=== PATIENT | male | born 1945 | race Two or more races ===

== ENCOUNTER 2019-05-31 10:47 | Outpatient (CLI) | payer MEDICARE, SELFPAY ==
--- NOTE | 2019-05-31 10:51 | MR_ITS ---
WS: [id number] MRI RIGHT KNEE HISTORY: PRIMARY OSTEOARTHRITIS RIGHT KNEE COMPARISON: 09/05/2018 Anterior cruciate ligament: Intact. Posterior cruciate ligament: Abnormal appearance of the PCL. There is thickening involving the proxim al PCL with increased signal. Mid body of the PCL is narrowed with some increased signal on the keesha n density sequence. No significant amount of edema to suggest an acute injury or tear. Suspect partia l chronic tear. Medial collateral ligament: Intact. Posterior lateral corner structures: Intact. Medial menisci: Fluid surrounding the free edge of the posterior horn. No full-thickness tear. Lateral meniscus: Intact. Normal signal, size and shape. Extensor mechanism: Distal quadriceps tendon and patellar tendons are intact. Fluid and soft tissue: Small suprapatellar joint effusion. No Padilla's cyst. Osseous and articular structures: Patellofemoral compartment: Normal. Medial compartment: Near full-thickness cartilage defect in the medial femoral condyle weightbearing surface. Defect is distended with fluid. There is an underlying 4 mm cyst. Otherwise mild narrowing o f the medial compartment. Lateral compartment: Negative. MR/MR knee RT wo con* [id number] IMPRESSION: 1. Osteochondral defect medial femoral condyle. 2. Abnormal PCL. Thickening of the proximal PCL with thinning of the mid body. Favor mucinous degenerative changes in the proximal ligament. Chronic partial tear mid, vertical portion of the PCL.
== END 2019-05-31 10:48 | disposition home or self-care (01) ==
LOC: RADSHAW 10:47
PROVIDERS: Family Provider Internal Medicine; PCP Internal Medicine; Visit Provider Specialist
DX: M17.11 Unilateral primary osteoarthritis, right knee (principal); M21.851 Other specified acquired deformities of right thigh
CPT/HCPCS: 73721

== ENCOUNTER → 2019-06-19 10:44 | Outpatient (BNVA) | payer MEDICARE, SELFPAY | PROVIDERS: Family Provider Internal Medicine; PCP Internal Medicine; Visit Provider Internal Medicine Rheumatology | DX: M05.79 Rheumatoid arthritis with rheumatoid factor of multiple sites without organ or systems involvement (principal); M35.00 Sjogren syndrome, unspecified; Z79.899 Other long term (current) drug therapy; D50.9 Iron deficiency anemia, unspecified; M19.012 Primary osteoarthritis, left shoulder | CPT/HCPCS: 99213 ==

== ENCOUNTER → 2019-10-25 10:54 | Outpatient (BNVA) | payer MEDICARE, SELFPAY | PROVIDERS: Family Provider Internal Medicine; PCP Internal Medicine; Visit Provider Internal Medicine | DX: Z79.899 Other long term (current) drug therapy (principal); Z11.59 Encounter for screening for other viral diseases; Z11.1 Encounter for screening for respiratory tuberculosis; Z72.89 Other problems related to lifestyle | CPT/HCPCS: 36415; 80076; 82565; 85025; 85651; 86140; 86480; 86704; 86803; 87340 ==

== ENCOUNTER → 2019-11-02 09:51 | Outpatient (BNVA) | payer MEDICARE, SELFPAY | PROVIDERS: Family Provider Internal Medicine; PCP Internal Medicine; Visit Provider Internal Medicine | DX: M05.79 Rheumatoid arthritis with rheumatoid factor of multiple sites without organ or systems involvement (principal); M35.00 Sjogren syndrome, unspecified; M19.90 Unspecified osteoarthritis, unspecified site; Z79.899 Other long term (current) drug therapy | CPT/HCPCS: 99213 ==

== ENCOUNTER → 2020-01-17 09:34 | Outpatient (BNVA) | payer MEDICARE, SELFPAY | PROVIDERS: Family Provider Internal Medicine; PCP Internal Medicine; Visit Provider Internal Medicine | DX: M05.79 Rheumatoid arthritis with rheumatoid factor of multiple sites without organ or systems involvement (principal); M19.90 Unspecified osteoarthritis, unspecified site; Z79.899 Other long term (current) drug therapy | CPT/HCPCS: 36415; 80053; 85025; 85651; 99213 ==

== ENCOUNTER → 2020-04-16 12:57 | Outpatient (BNVA) | payer MEDICARE, SELFPAY | PROVIDERS: Family Provider Internal Medicine; PCP Internal Medicine; Visit Provider Internal Medicine | DX: M05.79 Rheumatoid arthritis with rheumatoid factor of multiple sites without organ or systems involvement (principal); M19.90 Unspecified osteoarthritis, unspecified site; Z79.899 Other long term (current) drug therapy; Z87.891 Personal history of nicotine dependence | CPT/HCPCS: 36415; 80053; 85025; 85651; 86431; 99213 ==

== ENCOUNTER 2020-06-16 20:15 | Emergency (ER) | payer MEDICARE, SELFPAY ==
--- NOTE | 2020-06-16 | CTR_ITS ---
[facility] Final Radiology Report Call: [phone] Name: RHONDA LOMBARDI Age: 74Years M Date: 06/16/2020 SSN: -- : [id number] Study: CT NECK SOFT TISSUE WO Requesting Physician: Kwabena Ashton Images: [id number] Provided Clinical History: distal esophagus foreign body Procedure Accession CTDI Vol (mGy) DLP (mGy-cm) 694.22 CT NECK SOFT TISSUE WO [id number] PROCEDURE INFORMATION: Exam: CT Neck Without Contrast Exam date and time: 06/16/2020 8:40 PM Age: 74 years old Clinical indication: Other: Possible fb; Patient HX: Carrot stuck in throat; Additional info: Distal esophagus foreign body TECHNIQUE: Imaging protocol: Computed tomography images of the neck without contrast. Radiation optimization: All CT scans at this facility use at least one of these dose optimization techniques: automated exposure control; mA and/or kV adjustment per patient size (includes targeted exams where dose is matched to clinical indication); or iterative reconstruction. COMPARISON: No relevant prior studies available. RADIATION DOSE METRICS: Total DLP (mGy-cm): 694.22 FINDINGS: Nasopharynx: Unremarkable. Oropharynx: Unremarkable. No significant tonsillar enlargement. Hypopharynx: Unremarkable. Larynx: Unremarkable. Normal epiglottis. Retropharyngeal space: Unremarkable. Submandibular/Parotid glands: Normal. Glands are normal in size. Thyroid: Normal. No enlarged or calcified nodules. Lymph nodes: Unremarkable. No lymphadenopathy. Trachea: No obvious radiopaque foreign body in the pharynx or trachea. Lungs: Partially visualized 3.1 x 1.6 x 2.1 cm right extrapleural chest wall lesion suggesting fibroma versus other benign or malignant lesion. Esophagus: No obvious esophageal lesion down to the level of the subcarinal area. Bones/joints: Unremarkable. No acute fracture. Vasculature: Calcification of the thoracic aorta and/or great vessels consistent with atherosclerotic vessel disease. Moderate calcified coronary artery disease. Soft tissues: Unremarkable. No significant soft tissue swelling. Other findings: Stable total left shoulder replacement. IMPRESSION: 1. Partially visualized 3.1 x 1.6 x 2.1 cm right extrapleural chest wall lesion suggesting fibroma versus other benign or malignant lesion. 2. No obvious esophageal lesion down to the level of the subcarinal area. 3. No obvious radiopaque foreign body in the pharynx or trachea. Thank you for allowing us to participate in the care of your patient. Dictated and Authenticated by: Milad Law MD 06/16/2020 9:20 PM Central Time ([place] & [place]) CATHERINE
[2020-06-16 20:19] VITALS: BP 119/72; PULSE 82; RESP 19; TEMP 36.6; O2SAT 96; BMI 26.6
[2020-06-16 20:23] VITALS: PULSE 88; RESP 18; O2SAT 95
--- NOTE | 2020-06-16 20:57 | ED_ITS ---
HPI - URI/Sore Throat General: Chief Complaint: Airway/Esophagus Foreign Body Stated Complaint: FOOD IN THROAT Time Seen by Provider: 06/16/20 20:21 History of Present Illness: HPI Narrative: The patient is a 74-year-old male who comes to the ER tonight complaining he feels a foreign body in his throat. He says he ate a TV dinner which was not all the way cooked and there was a very hard curate which she feels is lodged in his upper throat. He says he can swallow but it is hard and painful. Denies shortness of breath, nausea, vomiting, diarrhea. Associated symptoms: Deny abdominal pain, chest pain, diarrhea, ear or mastoid pain, headache(s) or nasal congestion Review of Systems General: Reports: 10 or more systems reviewed and unremarkable except in HPI and below Const: Denies: fatigue Eyes: Denies: change in vision, blurry vision or eye redness ENMT: Denies: throat pain, swelling of lips/tongue, ear or mastoid pain or na leonor congestion Card: Denies: chest pain, palpitations, irregular heart rhythm, edema, dyspnea on exertion or orthopnea Resp: Denies: dyspnea, productive cough or non-productive cough GI: Denies: abdominal pain, diarrhea or GI cramping : Denies: flank pain, urinary frequency or urinary urgency Musc: Denies: neck pain, back pain, extremity pain, joint pain, joint redness, limited range of motion or muscle weakness Skin/Breast: Denies: rash, pruritus, erythema, skin pain or skin tenderness Neuro: Denies: headache(s), numbness in extremities, weakness in extremities, sensory changes, difficulty walking, dizziness, confusion or Slurred speech present Psych: Denies: anxiety or depression Endo: Denies: polyuria All/Imm: Denies: urticaria, throat swelling or tongue swelling PFSH ED PFSH: Medical History (Updated 06/16/20 @ 23:44 by Kwabena Ashton MD) History of Hodgkin's lymphoma History of revision of total replacement of right hip joint Immunosuppression Iron deficiency anemia Osteoarthritis Primary Sjogren's syndrome Right knee meniscal tear Seropositive rheumatoid arthritis of multiple joints Surgical History History of arthroplasty of left shoulder History of arthroplasty of right hip Social History Smoking and tobacco status: former smoker Alcohol intake: current Alcohol intake frequency: 0-2 Drinks per Day Alcohol type: beer Lives independently: Yes Marital status: / Physical Exam Const: COMMON NORMALS: no acute distress, average body habitus, patient oriented x3, no limitations, healthy appearing, alert and well nourished GENERAL APPEARANCE: cooperative, comfortable, well kempt and well developed ORIENTATION/CONSCIOUSNESS: Yes awake, Yes oriented to person, Yes oriented to place and Yes oriented to time HENMT: COMMON NORMALS: normocephalic, external ears normal and Normal external nose present HEAD & SCALP: normal to inspection and normocephalic NOSE: Normal external nose present EXTERNAL EAR: Yes external ears normal MOUTH: Normal oral and palatal mucosa present THROAT: posterior oropharynx normal Eye: COMMON NORMALS: Equal, round and reactive pupils present and EOMs intact bilaterally GENERAL EYE: appearance normal, both eyes and all related structures PUPIL: Yes Equal, round and reactive pupils present Neck/C-Spine: COMMON NORMALS: full ROM, no lymphadenopathy, no meningeal signs and no JVD GENERAL: Yes normal visual inspection Lymph: LYMPHATIC: no lymphadenopathy noted Chest: COMMONS NORMALS: normal inspection of the chest and normal palpation of entire chest wall Resp: COMMON NORMALS: normal respiratory effort, No retractions, No use of accessory muscles, clear to auscultation bilaterally and percussion normal EFFORT & INSPECTION: Yes able to speak in complete sentences AUSCULTATION: clear to auscultation bilaterally PERCUSSION: percussion normal Cardio: COMMON NORMALS: no JVD, regular rate, regular rhythm, S1 normal heart sound present, S2 normal heart sound present and Peripheral pulses 2+ throughout RATE: regular rate RHYTHM: regular rhythm HEART SOUNDS: S1 normal heart sound present and S2 normal heart sound present PERIPHERAL PULSES: Peripheral pulses 2+ throughout GI: COMMON NORMALS: Normal to inspection, nondistended, normoactive bowel sounds present, Soft to palpation, non-tender and no masses INSPECTION: Yes normal to inspection PALPATION: Yes Soft to palpation : COMMON NORMALS: Yes no CVA tenderness BLADDER/KIDNEY EXAM: Yes no CVA tenderness Back/Pelvis: COMMON NORMALS: no CVA tenderness, thoracic and lumbar spine normal to inspection, no thoracic nor lumbar tenderness and thoraco-lumbar ROM normal Extremity: COMMON NORMALS: normal to inspection, full ROM, capillary refill normal, no joint enlargement and no pedal edema GENERAL: Yes normal exam except as noted Neuro: COMMON NORMALS: patient oriented x3, CN's II-XII intact bilaterally, moves all extremities, no focal motor deficits, no sensory deficits noted and gait normal SENSORIUM/ORIENTATION: Yes alert, Yes oriented to person, Yes oriented to place and Yes oriented to time MENINGEAL SIGNS: Yes no meningeal signs Psych: COMMON NORMALS: mental status grossly normal, Normal thought process present, cooperative, normal affect and speech normal APPEARANCE: Yes well kempt ATTITUDE: Yes calm SPEECH: Yes normal speech THOUGHT PROCESS: Normal thought process present Skin: COMMON NORMALS: no rashes or lesions noted GENERAL SKIN EXAM: no rashes or lesions noted Course Vital Signs: Vital signs: Vital Signs Temperature 97.8 F 06/16/20 20:19 Pulse Rate 88 06/16/20 20:23 Respiratory Rate 18 06/16/20 20:23 Blood Pressure 119/72 06/16/20 20:19 Pulse Oximetry 95 06/16/20 20:23 MDM - URI/Sore Throat MDM Narrative: Medical decision making narrative: Symptoms resolved after GI cocktail. Likely a small abrasion from food. He is drinking water with no pain now. CT does have an incidental finding of a partially visualized 3.1 x 1.6 x 2.1 right extrapleural chest wall lesion suggesting fibroma versus other benign or malignant lesion. I discussed these findings with the patient and recommended he follow-up with his primary care physician in a few days to get further imaging and possibly a biopsy of this lesion. He understands there is a possibility it could be cancer and that earlier diagnosis leads to better prognosis and lower chance of and will follow up. Lab Data: Labs: Lab Results 06/16/20 06/16/20 Range/Units 22:31 22:31 WBC 8.2 (4.0-10.0) 10^3/ uL RBC 3.79 L (4.1-5.3) 10^6/u L Hgb 11.5 L (11.7-16.6) g/dL Hct 34.4 L (42.0-52.0) % MCV 90.8 (80-94) fL MCH 30.3 (28.0-34.0) pg MCHC 33.4 (30.0-36.0) g/dL RDW 12.3 (12.1-15.1) % Plt Count 177 (130-400) 10^3/c mm MPV 10.6 H (7.4-10.4) fL Neut % (Auto) 77.6 % Lymph % (Auto) 11.4 % [place] % (Auto) 7.3 % Eos % (Auto) 2.8 % Baso % (Auto) 0.7 % Neut # (Auto) 6.33 (1.8-7.7) 10^3/u L Lymph # (Auto) 0.9 (0.8-4.8) 10^3/u L [place] # (Auto) 0.6 (0.2-0.9) 10^3/u L Eos # (Auto) 0.2 (0.0-0.8) 10^3/u L Baso # (Auto) 0.1 (0.0-0.1) 10^3/u L Nucleated RBC % (a uto) 0 % Nucleated RBCs # 0.0 /100WBC Sodium 139 (136-145) mmol/L Potassium 4.1 (3.5-5.1) mmol/L Chloride 105 (98-107) mmol/L Carbon Dioxide 27 (22-29) mmol/L Anion Gap 11.1 (5-19) BUN 10 (8-23) mg/dL Creatinine 0.7 (0.7-1.2) mg/dL GFR Calculation Not Reportable Glucose 116 H (65-115) mg/dL Calculated Osmolal ity 288 (285-295) mOsm/k g Calcium 10.0 (8.5-10.5) mg/dL Total Bilirubin 0.4 (0.15-1.2) mg/dL AST 29 (0-40) U/L ALT 23 (0-41) U/L Alkaline Phosphata se 78 (40-130) IU/L Total Protein 7.2 (6.6-8.7) g/dL Albumin 4.1 (3.5-5.2) g/dL Globulin 3.1 (1.3-4.6) g/dL Lipase 71 H (13-60) U/L Discharge Plan Discharge Patient Disposition: Home Clinical Impression: Pain in throat, Chest wall mass Condition: Stable Prescriptions: No Action ferrous sulfate 325 mg (65 mg iron) tablet 325 mg PO BID@799,1999 RF: 0 oxycodone-acetaminophen [Percocet] 7.5-325 mg tablet 1 tab PO Q6H PRN (Reason: Pain) RF: 0 Ca-D3-mag pu-gwzi-bux-kody-bor [Calcium 600-D3 Plus (mag-zinc)] 600 mg calcium- 800 unit-50 mg tablet 1 tab PO DAILY@0800 RF: 0 ax-3-rpd-epa-fish oil-vit D3 300-1,000-1,000 mg-mg-unit capsule 1 cap PO DAILY@0800 RF: 0 glucosamine HCl 750 mg tablet 750 mg PO DAILY@0800 RF: 0 magnesium 200 mg tablet 200 mg PO DAILY@0800 RF: 0 saw palmetto 500 mg capsule 500 mg PO BID@799,1999 RF: 0 selenium 100 mcg tablet 100 mcg PO DAILY@0800 RF: 0 sulfasalazine 500 mg tablet 0.5 g PO BID@799,1999 RF: 0 folic acid 1 mg tablet 1 mg PO DAILY@08 RF: 0 hydroxychloroquine 200 mg tablet 200 mg PO BID@799,1999 RF: 0 Multivitamin 50 Plus Tablet 1 tab PO DAILY@0800 RF: 0 Discharge Orders: Discharge ED (Routine); Ordered 06/16/20 Ordered By: Kwabena Ashton Referrals: Barrie Bhatt DO [Primary Care Provider] - Discharge Diet: Advance as tolerated Discharge Activity: Resume usual activity Patient Instructions: Lump/Mass Activity Restrictions/Additional Instructions: It is likely the piece of food scratched your throat improved with the GI cocktail we have given. Continue to drink lots of fluids and chew your food well. Incidentally the CAT scan saw a mass in your chest wall 3.1 cm in the largest diameter. It is possible this is a fibroma or there is a possibility this could be a cancer. Please follow-up with your primary care physician in a few days to discuss further and get more imaging and possibly a biopsy of this lesion. In the event it is a cancer early follow-up in diagnosis leads to a better prognosis so please make sure that you follow-up quickly. Return to the ER with worsening symptoms. Coding Level of Care Code ED Learn To Swim Instructor for Chg Fwd Exam Comprehensive
[2020-06-16] MEDS: lidocaine 2% viscous 15 ML, aluminum-mag hydrox-simethicon 30 ML, sucralfate oral liq 1 GM PO (22:25)
[2020-06-16 22:46] LABS: Basophils # 0.1 10^3/uL (0.0-0.1); Basophils % 0.7 %; Eosinophils # 0.2 10^3/uL (0.0-0.8); Eosinophils % 2.8 %; Hematocrit 34.4 % (42.0-52.0); Hemoglobin 11.5 g/dL (11.7-16.6); Lymphocytes # 0.9 10^3/uL (0.8-4.8); Lymphocytes % 11.4 %; Mean Corpuscular HGB Conc 33.4 g/dL (30.0-36.0); Mean Corpuscular Hemoglobin 30.3 pg (28.0-34.0); Mean Corpuscular Volume 90.8 fL (80-94); Mean Platelet Volume 10.6 fL (7.4-10.4); Monocytes # 0.6 10^3/uL (0.2-0.9); Monocytes % 7.3 %; Neutrophils # 6.33 10^3/uL (1.8-7.7); Neutrophils % 77.6 %; Nucleated Red Blood Cells % 0 %; Platelet Count 177 10^3/cmm (130-400); Red Blood Count 3.79 10^6/uL (4.1-5.3); Red Cell Distribution Width 12.3 % (12.1-15.1); White Blood Count 8.2 10^3/uL (4.0-10.0)
[2020-06-16 22:55] LABS: Alanine Aminotransferase 23 U/L (0-41); Albumin Level 4.1 g/dL (3.5-5.2); Alkaline Phosphatase 78 IU/L (40-130); Anion Gap 11.1 (5-19); Aspartate Amino Transferase 29 U/L (0-40); Blood Urea Nitrogen 10 mg/dL (8-23); Carbon Dioxide 27 mmol/L (22-29); Chloride 105 mmol/L (98-107); Creatinine Clr Calc Pharmacy 75.7969; Globulin 3.1 g/dL (1.3-4.6); Glucose 116 mg/dL (65-115); Lipase 71 U/L (13-60); Osmolality Calculated 288 mOsm/kg (285-295); Potassium 4.1 mmol/L (3.5-5.1); Sodium 139 mmol/L (136-145); Total Bilirubin 0.4 mg/dL (0.15-1.2); Total Protein 7.2 g/dL (6.6-8.7)
[2020-06-17 00:42] VITALS: BP 115/78; PULSE 77; RESP 18; TEMP 36.6; O2SAT 96
== END 2020-06-17 00:42 | disposition home or self-care (01) ==
PROVIDERS: Emergency Provider Family Medicine; PCP Internal Medicine
DX: R07.0 Pain in throat (principal); R22.2 Localized swelling, mass and lump, trunk; Z85.71 Personal history of Hodgkin lymphoma; Z87.891 Personal history of nicotine dependence
CPT/HCPCS: 12345; 36415; 70490; 80053; 83690; 85025; 99281; 99283

== ENCOUNTER → 2020-07-15 15:08 | Outpatient (BNVA) | payer MEDICARE, SELFPAY | PROVIDERS: PCP Internal Medicine; Visit Provider Internal Medicine | DX: M05.79 Rheumatoid arthritis with rheumatoid factor of multiple sites without organ or systems involvement (principal); M19.90 Unspecified osteoarthritis, unspecified site; M35.00 Sjogren syndrome, unspecified; Z79.899 Other long term (current) drug therapy; Z87.891 Personal history of nicotine dependence | CPT/HCPCS: 99213 ==

== ENCOUNTER 2020-07-17 10:50 | Outpatient (CLI) | payer MEDICARE, SELFPAY ==
--- NOTE | 2020-07-17 11:05 | CT_ITS ---
WS: [id number] CT CHEST TECHNIQUE: Noncontrast CT of the chest with coronal and sagittal reformatted images. CLINICAL INFORMATION: LUNG MASS COMPARISON: 1 DLP: 829.[address] scans at [facility] use at least one of these dose optimization techniques: automat ed exposure control; mA and/or kV adjustment per patient size (includes targeted exams where dose is matched to clinical indication); or iterative reconstruction. FINDINGS: Again seen is the lateral right upper lobe pleural-based mass approximately 4.1 x 1.1 x 4.1 CM. This is unchanged since the recent CT neck. This underlies the right third rib. No underlying osseous dest ruction or osteolysis. Advanced chronic emphysematous changes. Scattered bilateral groundglass infiltrates. Findings can be seen with COVID19 pneumonitis. No focal pneumonia or pleural fluid. Chronic pleural thickening in the lung bases. Normal caliber thoracic aorta with calcification. Coronary calcification. A few slight prominent medi astinal and paratracheal lymph nodes not pathologically enlarged. No axillary lymphadenopathy. Adrena l glands are normal. Fatty atrophy of the pancreas. Mild spondylitic changes thoracic spine. Mild tho racic kyphosis. Left TSA. CT/CT chest wo con [id number] IMPRESSION: 1. Right upper lobe pleural based lesion is unchanged since the recent examina tion. This underlies the third anterior rib with no evidence of underlying osse ous destruction. 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 2. Additional considerations such as pleural-based metastasis and lymphoma are much less likely without prior history of malignancy. Note CT-guided Percutane ous biopsy could be attempted but would be challenging due to location underlyi ng rib. 3. Scattered hazy ground glass infiltrates in both lungs likely infectious or inflammatory and can be seen with COVID19 pneumonitis. No focal consolidation o r pleural fluid. 4. Vascular calcification including coronary.
== END 2020-07-17 10:51 | disposition home or self-care (01) ==
LOC: RADWPI 10:58
PROVIDERS: PCP Internal Medicine; Visit Provider Internal Medicine
DX: R91.8 Other nonspecific abnormal finding of lung field (principal); I25.10 Atherosclerotic heart disease of native coronary artery without angina pectoris; J98.4 Other disorders of lung
CPT/HCPCS: 71250

== ENCOUNTER → 2020-08-15 10:27 | Outpatient (BNVA) | payer MEDICARE, SELFPAY | PROVIDERS: PCP Internal Medicine; Visit Provider Internal Medicine Pulmonary Disease | DX: Z20.822 Contact with and (suspected) exposure to COVID-19 (principal) | CPT/HCPCS: 87635 ==

== ENCOUNTER 2020-08-22 05:42 | Day surgery (SDC) | payer MEDICARE, SELFPAY ==
[2020-08-20 11:01] VITALS: BMI 24.2
[2020-08-22] VITALS (7 sets, daily range): BP systolic 91–122; BP diastolic 61–81; PULSE 68–84; RESP 17–18; TEMP 36.6–37.2; O2SAT 92–98
[2020-08-22] MEDS: sodium chloride 0.9% 1,000 ML 30 ML IV ×2 (06:19→07:46)
--- NOTE | 2020-08-22 06:33 | ANES.PREANE2 ---
Pre-Anesthetic Assessment Pre-Anesthetic Assessment: Height/Weight: Height 1.68 m Weight 68.039 kg Temp Pulse Resp BP Pulse Ox 99.0 F 84 18 106/63 94 08/22/20 06:01 08/22/20 06:01 08/22/20 06:01 08/22/20 06:01 08/22/20 06:01 Preop Diagnosis: Lung mass Proposed Procedure: Operation Date: 08/22/20 07:10 Proposed Procedures p Ebus(Not Applicable) - Easton Germain MD Familial anesthetic complications: none Was Beta Julia taken within 24 hours: N/A Was Clonidine taken within 24 hours: N/A Last intake: Intake Last Liquid Date 08/21/20 Last Liquid Time 23:45 Last Solid Date 08/21/20 Last Solid Time 23:45 Social: Social History: No alcohol and No tobacco Comment: former smoker Exam: Pre-Anes Outpt Exam: alert, oriented x 3, clear to auscultation bilaterally and regular rate & rhythm Airway: Cervical ROM: WNL MP: 2 Dentition: Other (no teeth) Pulmonary: Comments: lung mass Musc/skel: Musc/skel: RA Anesthetic Plan: ASA status: 3 Anesthesia: General Risk of > 500 ml blood loss (7ml/kg in children): No Meds/Allergies Current Medications: Current Medications Generic Name Dose Route Start Last Admin Trade Name Freq PRN Reason Stop Dose Admin Sodium Chloride 1,000 mls @ 30 ml s/hr 08/22/20 06:00 08/22/20 06:19 Sodium Chloride 0.9% IV 08/23/20 05:59 30 mls/hr .Q24H COLT Administration PFSH Anesthesia PFSH: Medical History (Updated 08/04/20 @ 17:35 by Easton Germain MD) History of Hodgkin's lymphoma Iron deficiency anemia Osteoarthritis Primary Sjogren's syndrome Right knee meniscal tear Seropositive rheumatoid arthritis of multiple joints Thoracic outlet syndrome Surgical History History of arthroplasty of left shoulder History of arthroplasty of right hip History of revision of total replacement of right hip joint Status post colonoscopy Status post surgery Bilateral chest surgery for thoracic outlet syndrome Social History Smoking and tobacco status: former smoker Quit status (tobacco): has quit using tobacco Year quit tobacco: 2010 [id number] Second hand smoke exposure: No Smoking risk assessment/counseling performed?: Yes Alcohol intake: current Alcohol intake frequency: 0-2 Drinks per Day Alcohol type: beer Caregiver/support person: No Lives independently: Yes Household members: none Housing: House Marital status: / service: No Current occupational status: retired Pets and animals: Yes History of recent travel: No Current gender identity: Male Data Anesthesia Cardiac Studies: No Data to Display
--- NOTE | 2020-08-22 06:58 | W.PM.OPSFHP ---
Same Day Surgery H&P Indication for Procedure/HPI DATE OF PROCEDURE: August 22, 2020 CHIEF COMPLAINT/INDICATIONFOR SURGICAL PROCEDURE: This is a 74-year-old gentleman with a past medical history of Hodgkin's lymphoma. The patient is coming in for bronchoscopic evaluation for mediastinal hilar lymphadenopathy in addition to right upper lobe pleural-based lesion that are PET positive. PREOP DIAGNOSIS: Lung mass PLANNED PROCEDRUE: Bronchoscopy inspection of the airway, possible endobronchial biopsies, bronchoalveolar lavage, endobronchial sound guided transbronchial needle aspiration of lymph nodes, ultrasound-guided transthoracic needle biopsy of the lung mass. Operation Date: 08/22/20 07:10 Proposed Procedures p Ebus(Not Applicable) - Easton Germain MD Medications/Allergies* Home Medications Medication Instructions Recorded Confirmed Type Ca 600 mg-D3 20 mcg-mag oxide 50 1 tab PO DAILY@0800 tab 06/19/19 08/22/20 History dw-Qf-xdgotj-manganese-boron tablet ferrous sulfate 325 mg (65 mg 325 mg PO BID@0800,199906/19/19 08/22/20 History iron) tablet glucosamine HCl 750 mg tablet 750 mg PO DAILY@0800 tab 06/19/19 08/22/20 History magnesium 200 mg tablet 400 mg PO DAILY@0800 06/19/19 08/22/20 History xf-8-mij-epa-fish oil-vit D3 300 1 cap PO DAILY@0800 cap 06/19/19 08/22/20 History mg-1,000 mg-1,000 unit capsule oxycodone-acetaminophen 7.5 mg-325 1 tab PO Q6H PRN 06/19/19 08/22/20 History mg tablet saw palmetto 500 mg capsule 500 mg PO BID@0800,199906/19/19 08/22/20 History selenium 100 mcg tablet 100 mcg PO DAILY@00 06/19/19 08/22/20 History folic acid 1 mg PO DAILY@00 06/16/20 08/22/20 History rtylamhlvnkm-pfanlhxd-ullgyd 1 tab PO DAILY@00 06/16/20 08/22/20 History [Multivitamin 50 Plus] Allergies/Adverse Reactions Allergy/AdvReac Type Severity Reaction Status Date / Time No Known Allergies Allergy Verified 08/04/20 14:34 Current Medications: Generic Name Dose Route Start Last Admin Trade Name Freq PRN Reason Stop Dose Admin Sodium Chloride 1,000 mls @ 30 mls/hr 08/22/20 06:00 08/22/20 06:19 Sodium Chloride 0.9% IV 08/23/20 05:59 30 mls/hr .Q24H COLT Administration Pertinent History/Comorbid Conditions* Medical History (Updated 08/04/20 @ 17:35 by Easton Germain MD) History of Hodgkin's lymphoma Iron deficiency anemia Osteoarthritis Primary Sjogren's syndrome Right knee meniscal tear Seropositive rheumatoid arthritis of multiple joints Thoracic outlet syndrome Surgical History (Updated 08/04/20 @ 11:18 by Neel Art MD) History of arthroplasty of left shoulder History of arthroplasty of right hip History of revision of total replacement of right hip joint Status post colonoscopy Status post surgery Bilateral chest surgery for thoracic outlet syndrome Social History Smoking and tobacco status: former smoker Quit status (tobacco): has quit using tobacco Year quit tobacco: 2010 [id number] Second hand smoke exposure: No Smoking risk assessment/counseling performed?: Yes Alcohol intake: current Alcohol intake frequency: 0-2 Drinks per Day Alcohol type: beer Caregiver/support person: No Lives independently: Yes Household members: none Housing: House Marital status: / service: No Current occupational status: retired Pets and animals: Yes History of recent travel: No Current gender identity: Male Pertinent Exam Findings alert, oriented x 3, clear to auscultation bilaterally and regular rate & rhythm Recommendations Surgery/Procedure today Coding Level of Care Code Acute Blood Bank Order Control Clerk for Chadwick Velasquez
[2020-08-22] MEDS: lidocaine 1% INJ 20 mL XX (07:46)
--- NOTE | 2020-08-22 08:35 | PM.OP ---
Operative Report Date of procedure: August 22, 2020 Pre-op Diagnosis: Suspected malignancy Post-op diagnosis: same Brief History: This is a 74-year-old gentleman with a history of Hodgkin's lymphoma coming in for evaluation of PET positive pleural-based lung lesion as well as mediastinal hilar lymphadenopathy. Procedure: Name of the procedure: Bronchoscopy with inspection of the airway,endobronchial ultrasound-guided transbronchial needle aspiration of lymph nodes and control of bleeding. Indication: Suspected malignancy Anesthesia: General anesthesia. Local anesthesia: The vocal cords, trachea, sam and the right and left mainstem bronchi were anesthetized with 1% lidocaine, 3 mL. Description of the procedure: The procedure was explained to the patient and the consent was obtained. The patient was brought to the OR. The patient underwent laryngeal mask airway placement for general anesthesia. Following induction of general anesthesia, the bronchoscope was advanced through the LMA. Vocal cords are normal. The vocal cords were anesthetized with 1% lidocaine, 3 mL lidocaine was used. The lower trachea appeared to be erythematous, no endotracheal lesion was seen. The sam was splayed. The sam, the right and left mainstem bronchi are anesthetized with 1% lidocaine. In a systematic manner bilateral bronchial tree was then examined. The bronchoscope was advanced into the left mainstem bronchus. There was erythema and mild mucus. The left upper lobe, lingula and left lower lobe bronchi were examined up to the third subsegmental level and no abnormalities were identified. There is no endobronchial lesion, active bleeding or mucous plug. The bronchoscope was then introduced into the right mainstem bronchus. The right upper lobe, right middle lobe and right lower lobe bronchi were examined up to the third subsegmental level and no abnormalities were identified. There was airway erythema throughout the lung. The endobronchial ultrasound was introduced through the ET tube. Mediastinal and hilar lymphadenopathy was identified with the ultrasound. Fine-needle aspiration was performed from station 7 lymph node. Samples: 1. The transbronchial needle aspiration from station 7 lymph node was sent for histopathology. Complications: There was no immediate complications.
--- NOTE | 2020-08-22 16:00 | ANE.PACU2 ---
Inpatient post-anesthesia follow up: Airway intact: Yes Vital signs: Temperature 98.2 F Pulse Rate 68 Respiratory Rate 18 Blood Pressure 111/74 Pulse Oximetry 92 Oxygen Delivery Me thod Room Air Oxygen Flow Rate 6 Fraction of Inspir ed Oxygen Hydration adequate: Yes Nausea and vomiting: No Pain level: 1 Mental status: Baseline
[2020-08-27 12:28] LABS: Miscellaneous Test See Scanned Lab Rpt
== END 2020-08-22 09:20 | disposition home or self-care (01) ==
PROVIDERS: Internal Medicine Critical Care Medicine; PCP Internal Medicine; Visit Provider Internal Medicine Pulmonary Disease
PROC: BB4BZZZ Ultrasonography of Pleura (ICD-10-PCS; principal; 2020-08-22 07:00)
PROC: 0BJ08ZZ Inspection of Tracheobronchial Tree, Via Natural or Artificial Opening Endoscopic (ICD-10-PCS; CPT 31622; 2020-08-22 07:00)
DX: R91.8 Other nonspecific abnormal finding of lung field (principal); Z85.71 Personal history of Hodgkin lymphoma; M19.90 Unspecified osteoarthritis, unspecified site; Z87.891 Personal history of nicotine dependence
CPT/HCPCS: 31622; 31652; 80500; 88184; 88185; 88305; J1100; J2250; J2370; J2405; J2704; J3010; J7030

== ENCOUNTER 2020-11-06 10:02 | Outpatient (CLI) | payer MEDICARE, SELFPAY ==
--- NOTE | 2020-11-06 11:00 | USCV_ITS ---
Peng Cooper Age: 75 Gender: M : 1945 Exam Date: 11/06/2020 10:27 Ordering Phys: Easton Germain MD Technologist: Suki Gomez Exam Location: [facility] [place] Indication: Bilateral calf swelling HISTORY: Lower extremity swelling. PROCEDURES: Comparison: 06-19-2015. Venous duplex imaging was performed in bilateral lower extremities. The following venous structures were evaluated: common femoral vein, profunda vein, proximal portion of the greater saphenous vein, superficial femoral vein, and the popliteal vein. In addition, the posterior tibial and peroneal trunk were evaluated. Serial compression, augmentation maneuvers, and spectral Doppler flow evaluation were performed. FINDINGS: Normal 2-D Doppler and augmentation and compressibility throughout the lower extremity venous structures. Additional imaging through the proximal calf veins also reveals no thrombus. Limited evaluation of the greater saphenous vein is patent with no thrombus.. CONCLUSIONS No DVT bilateral lower extremities. Dr. Shaunna Mejia DO (Electronically Signed) Final Date: 06 November 2020 12:56 S
== END 2020-11-06 10:03 | disposition home or self-care (01) ==
LOC: RAD 10:06
PROVIDERS: PCP Internal Medicine; Visit Provider Internal Medicine Pulmonary Disease
DX: R22.43 Localized swelling, mass and lump, lower limb, bilateral (principal)
CPT/HCPCS: 93970

== ENCOUNTER → 2020-11-14 13:20 | Outpatient (BNVA) | payer MEDICARE, SELFPAY | PROVIDERS: PCP Internal Medicine; Visit Provider Internal Medicine Pulmonary Disease | DX: Z01.812 Encounter for preprocedural laboratory examination (principal); Z20.822 Contact with and (suspected) exposure to COVID-19 | CPT/HCPCS: 87635 ==

== ENCOUNTER 2020-11-18 10:11 | Outpatient (CLI) | payer MEDICARE, SELFPAY ==
--- NOTE | 2020-11-18 11:09 | PFTS_ITS ---
Date of Study:11/18/20 Date of Dictation: 11/21/2020 MECHANICS: Forced vital capacity (FVC) is normal.. Forced expiratory volume in one second (FEV1) is normal. FEV1/FVC is reduced. Postbronchodilator study not performed FLOW VOLUME LOOP: End expiratory sloping suggestive of small airway obstruction . LUNG VOLUMES: Total lung capacity (TLC) is normal. Residual volume (RV) is normal. DIFFUSING CAPACITY FOR CARBON MONOXIDE: Mildly reduced 65% . INTERPRETATION: The pulmonary function tests nonspecific restriction on spirometry, however lung volumes are normal. There is no postbronchodilator study to check for airway responsiveness. Mild gas transfer defect 65%. Clinical correlation recommended. MTDD
== END 2020-11-18 10:12 | disposition home or self-care (01) ==
PROVIDERS: PCP Internal Medicine; Visit Provider Internal Medicine Pulmonary Disease
DX: Z77.090 Contact with and (suspected) exposure to asbestos (principal)
CPT/HCPCS: 94010; 94726; 94729

== ENCOUNTER → 2020-11-27 12:57 | Outpatient (BNVA) | payer MEDICARE, SELFPAY | PROVIDERS: PCP Internal Medicine; Visit Provider Internal Medicine | DX: D89.9 Disorder involving the immune mechanism, unspecified (principal); M05.79 Rheumatoid arthritis with rheumatoid factor of multiple sites without organ or systems involvement; M19.90 Unspecified osteoarthritis, unspecified site; M35.00 Sjogren syndrome, unspecified; Z51.81 Encounter for therapeutic drug level monitoring; Z79.899 Other long term (current) drug therapy; Z85.71 Personal history of Hodgkin lymphoma | CPT/HCPCS: 36415; 80053; 85025; 85651; 86140 ==

== ENCOUNTER → 2020-12-01 13:22 | Outpatient (BNVA) | payer MEDICARE, SELFPAY | PROVIDERS: PCP Internal Medicine; Visit Provider Internal Medicine | DX: M05.79 Rheumatoid arthritis with rheumatoid factor of multiple sites without organ or systems involvement (principal); Z79.899 Other long term (current) drug therapy; D89.9 Disorder involving the immune mechanism, unspecified | CPT/HCPCS: 99213 ==

== ENCOUNTER 2021-01-22 12:44 | Outpatient (CLI) | payer MEDICARE, SELFPAY ==
[2021-01-22 15:56] LABS: Basophils # 0.1 10^3/uL (0.0-0.1); Basophils % 1.3 %; Eosinophils # 0.4 10^3/uL (0.0-0.8); Eosinophils % 6.6 %; Hematocrit 33.5 % (42.0-52.0); Hemoglobin 11.6 g/dL (11.7-16.6); Lymphocytes # 1.1 10^3/uL (0.8-4.8); Lymphocytes % 17.5 %; Mean Corpuscular HGB Conc 34.6 g/dL (30.0-36.0); Mean Corpuscular Hemoglobin 30.5 pg (28.0-34.0); Mean Corpuscular Volume 88.2 fl (80-94); Mean Platelet Volume 10.9 fL (7.4-10.4); Monocytes # 0.7 10^3/uL (0.2-0.9); Monocytes % 11.2 %; Neutrophils # 3.93 10^3/uL (1.8-7.7); Neutrophils % 63.1 %; Nucleated Red Blood Cells % 0 %; Platelet Count 179 10^3/cmm (130-400); Red Cell Distribution Width 13.5 % (12.1-15.1); White Blood Count 6.2 10^3/uL (4.0-10.0)
[2021-01-22 16:28] LABS: Alanine Aminotransferase 15 U/L (0-41); Albumin Level 4.2 g/dL (3.5-5.2); Alkaline Phosphatase 78 IU/L (40-130); Anion Gap 12.2 (5-19); Aspartate Amino Transferase 27 U/L (0-40); Blood Urea Nitrogen 8 mg/dL (8-23); Calcium 9.6 mg/dL (8.5-10.5); Carbon Dioxide 25 mmol/L (22-29); Chloride 102 mmol/L (98-107); Globulin 3.2 g/dL (1.3-4.6); Glucose 94 mg/dL (65-115); Lactate Dehydrogenase 211 U/L (135-225); Osmolality Calculated 278 mOsm/kg (285-295); Potassium 4.2 mmol/L (3.5-5.1); Sodium 135 mmol/L (136-145); Total Bilirubin 0.3 mg/dL (0.15-1.2); Total Protein 7.4 g/dL (6.6-8.7)
--- NOTE | 2021-01-22 17:20 | ONC CON_ITS ---
Dr. Huerta New Patient Note Patient: Peng Cooper Unit #: [id number]: 1945 Dicatated By: Vaibhav Huerta M.D.Date of Visit: Jan 22, 2021 Onc MED New Patient/Consult Referring Physician: Dr. NIDA Chanel M.D. History of Present Illness: Mr. Peng Cooper, is a 75-year-old gentleman with a history of stage II classical Hodgkin's lymphoma, diagnosed on December 05, 2013, at that time he underwent treatment with ABVD and patient was following Dr. Cristhian Chanel medical oncologist in [place] on yearly basis, with no evidence of disease. As per patient in June 2020 he had episode when carrott got stuck in his throat for which he underwent CT scan of neck on June 16, 2020 which showed partially visualized 3.1 x 1.6 x 2.1 cm right extrapleural chest wall lesion suggesting a fibroma versus other benign or malignant lesion. No obvious esophageal lesion, no obvious radiopaque foreign body in the pharynx or trachea patient was referred to pulmonology, Dr. Germain, who ordered CT PET scan which was done on July 12, 2020 and it showed right upper lobe pleural-based lesion measuring 4.4 x 1.5 cm with SUV of 5.5. And FDG positive mediastinal lymph nodes in the right paratracheal, right hilar and subcarinal distribution. The index subcarinal lymph node has SUV of 4.9. Subcentimeter nodules in the lung apices bilaterally are too small to characterize. 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 There is no significant expression of CD10 or BCL6, CD23 or cyclin D1. [place] and lambda SISSY shows evidence of kappa light chain restriction with areas of strong staining., So differential was marginal zone lymphoma and lymphoplasmacytic lymphoma, tissue block was sent to [facility] for NYD 88 testing to rule out lymphoplasmacytic lymphoma, which came back negative thus lymphoplasmacytic lymphoma was ruled out and patient was diagnosed with marginal zone lymphoma., Patient was evaluated by Dr. Cristhian Chanel medical oncologist and [place] on on December 03, 2020 and he ordered repeat CT PET scan which was done on December 30, 2020 and was compared with CT PET scan from October 26, 2016, not with PET scan from July 2020 which was done in [facility] and it showed interval enlargement of subpleural mass in the lateral right chest with SUV of 5.7. There is also little bit of pleural thickening in the inferior lateral right chest which has borderline increased activity up to 3. Mild increased activity in several lymph nodes in the mediastinum and right and left jo slightly more prominent than in October 2016 which may relate to patient's lymphoma as well. Several small lymph nodes in the retroperitoneum without increased activity. Some chronic fibrotic and cystic changes in the lung bases. Mild increased activity seen multiple small lymph nodes in the right/left jo and then mediastinum in the precarinal and subcarinal area. SUV of 4.9. Lymph nodes are significantly change in size. The maximum SUV 3.5., Dr. Cristhian Chanel recommended radiation therapy to the right pleural-based lesion and Rituxan therapy, as patient lives close to [place], he was referred to our cancer center for above-mentioned treatment. Patient denies any night sweats, denies any weight loss, denies any recurrent fever, patient denies any right chest pain or any new bony pains, patient has history of seropositive rheumatoid arthritis, for which he has been treated with immunosuppressive drugs from time to time and now he is on sulfasalazine and hydroxychloroquine and being followed by rheumatology. Patient denies any peripheral lymphadenopathy, denies any abdominal fullness, denies any hemoptysis or hematemesis, denies any abdominal pain or dysphagia, denies any jaundice Past Medical History: Mr. Cooper's medical history consists of anemia, fibromyalgia, osteoarthritis, and rheumatoid arthritis. Past Surgical History: Mr. Cooper's surgical/procedural history consists of hip surgery x3, covid vaccine #3 in 2020, covid vaccine #2 in 2020, and covid vaccine #1 in 2020. Medications: Calcium 1 Tablet (of 600-400 mg - Units) Tablet, chewable Oral daily, [facility] Fish Oil 1 Capsule (of 1000 mg) Oral daily, Daily Multiple Vitamins 1 Tablet Oral daily, FeroSul 1 Tablet (of 325 (65 fe) mg) Oral b.i.d., Folate 1 Tablet (of 400 mcg) Oral daily, Glucosamine Sulfate 1 Tablet (of 500 mg) Capsule Oral b.i.d., HM Selenium 1 Tablet (of 200 mcg) Oral daily, Hydroxychloroquine Sulfate 1 Tablet (of 200 mg) Oral b.i.d., Magnesium 1 Tablet (of 400 mg) Oral daily, oxyCODONE HCl 1 Tablet (of 7.5 mg) Oral ac (tid) & at bedtime PRN, Saw [place] 1 Capsule (of 500 mg) Oral daily, sulfaSALAzine 1 Tablet (of 500 mg) Oral b.i.d. Allergies: No Known Allergies. Social History: Mr. Cooper is . Mr. Cooper no longer smokes. He is an active drinker.He consumes 6 drinks/day 7 days/week. Family History: There is no documented family history. Review Of Symptoms: Review of Systems is not available for this patient. Vital Signs: Performed on Jan 22, 2021 15:42: 0, 6, 25.08, 1.80 sq.m, 66 in, 96 %, 76 /min, 18 /min, 111/72 mm(hg), 97.6 F (LOW), and 155.4 lbs (HIGH). Performance Status: 0 - Fully active, able to carry on all predisease activities without restrictions. (ECOG) Physical Examination: ENMT - No mouth sores, no thrush, no jaundice, no cervical lymphadenopathy, Respiratory - Lungs are clear to auscultation, Cardiovascular - Regular rate and rhythm of heart, Abdomen - Soft, bowel sounds present, Extremities - No visible edema or rash. Lab/Imaging: Most recent lab results are not available for this patient. 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 And with FDG positive mediastinal lymph nodes in the right paratracheal, right hilar and subcarinal distribution. Index subcarinal lymph node has SUV of 4.9. Subcentimeter nodules in the lung apices bilaterally are too small to characterize. Repeat CT PET scan done on December 30, 2020 showed interval enlargement of subpleural mass in the lateral right chest with SUV of 5.7. Mild increased activity in the several lymph nodes in the mediastinum and right/left jo, slightly more prominent than CT PET scan done on October 26, 2016. Several small lymph nodes in the retroperitoneum without increased activity. History of classical Hodgkin's lymphoma, stage II diagnosed in 2013 status post ABVD History of seropositive rheumatoid arthritis/Sjogren's since age 36 with history of immunosuppression therapy, now on hydroxychloroquine and sulfasalazine, being followed by rheumatology History of Plan: Discussed with patient regarding his disease status and his CT PET scan finding and also discussed about his medical oncologist Dr. Cristhian Chanel's recommendation, patient is not symptomatic from newly diagnosed low-grade lymphoma/marginal zone lymphoma, no chest wall pain, no B symptoms. No dysphagia. Moreover based on CT PET scan done in December 2020 findings when compared with CT PET scan done in October 2016, there was a persistent but stable mediastinal lymphadenopathy but interval enlargement of subpleural mass in the right lateral chest wall with SUV of 5.7, not clear how much progression thus we will review his CT PET scan with Dr. Krishan Carlson, radiologist at [facility] and also request him to review and compare his CT PET scan with CT PET scan done on August 09, 2020 in [place] for better comparison and moreover clarification on changes seen when compared with CT PET scan done in October 2016. We will also discuss with Dr. Obinna guerrero, pathologist at [facility] in [place] regarding his findings and request him to compare, patient slides from his initial diagnosis of Hodgkin's lymphoma in 2013. As in his report he mentioned he said atypical lymphoid infiltrate, which was later confirmed as marginal zone lymphoma and other concern is whether this marginal zone lymphoma has any relationship with the patient seropositive rheumatoid arthritis and related immunosuppression therapy. Patient is not symptomatic from his low-grade lymphoma moreover Covid pandemic, risk versus benefits associated with Rituxan were also discussed and the patient is already on immunosuppressive drugs for his rheumatoid arthritis and considering persistent mediastinal lymphadenopathy seen on CT PET scan, and radiation therapy to asymptomatic right pleural mass may not help the patient. We will obtain baseline CBC CMP and LDH and as mentioned above we will defer his treatment with Rituxan and radiation therapy to asymptomatic right pleural based mass for the time being until clarify CT PET scan finding with Dr. Carlson, radiologist in [place] and pathology with at [facility] in [place] as FNA of lymphomatous mass may not be sufficient to differentiate between classical Hodgkin lymphoma and low-grade lymphoma. Patient return to clinic in 1 month for further discussion and planning Signed By: Vaibhav Huerta M.D. <<Signature on File>>
== END 2021-01-22 12:45 | disposition home or self-care (01) ==
LOC: ONCMED 12:52
PROVIDERS: PCP Internal Medicine; Visit Provider Internal Medicine Hematology & Oncology
DX: C81.78 Other Hodgkin lymphoma, lymph nodes of multiple sites (principal); M06.9 Rheumatoid arthritis, unspecified; Z79.899 Other long term (current) drug therapy
CPT/HCPCS: 36415; 80053; 83615; 85025; 99205

== ENCOUNTER 2021-02-24 13:34 | Outpatient (CLI) | payer MEDICARE, SELFPAY ==
[2021-02-24 14:17] LABS: Basophils # 0.1 10^3/uL (0.0-0.1); Eosinophils # 0.3 10^3/uL (0.0-0.8); Eosinophils % 4.7 %; Hematocrit 32.7 % (42.0-52.0); Hemoglobin 11.3 g/dL (11.7-16.6); Lymphocytes # 1.2 10^3/uL (0.8-4.8); Lymphocytes % 16.3 %; Mean Corpuscular HGB Conc 34.6 g/dL (30.0-36.0); Mean Corpuscular Hemoglobin 31.1 pg (28.0-34.0); Mean Corpuscular Volume 90.1 fl (80-94); Mean Platelet Volume 10.8 fL (7.4-10.4); Monocytes # 0.6 10^3/uL (0.2-0.9); Monocytes % 8.7 %; Neutrophils # 4.85 10^3/uL (1.8-7.7); Neutrophils % 68.9 %; Nucleated Red Blood Cells % 0 %; Platelet Count 178 10^3/cmm (130-400); Red Blood Count 3.63 10^6/uL (4.1-5.3); Red Cell Distribution Width 12.8 % (12.1-15.1)
[2021-02-24 14:47] LABS: Alanine Aminotransferase 13 U/L (0-41); Albumin Level 4.1 g/dL (3.5-5.2); Alkaline Phosphatase 61 IU/L (40-130); Aspartate Amino Transferase 22 U/L (0-40); Blood Urea Nitrogen 11 mg/dL (8-23); Calcium 9.8 mg/dL (8.5-10.5); Carbon Dioxide 25 mmol/L (22-29); Chloride 105 mmol/L (98-107); Globulin 3.2 g/dL (1.3-4.6); Glucose 99 mg/dL (65-115); Lactate Dehydrogenase 203 U/L (135-225); Osmolality Calculated 287 mOsm/kg (285-295); Sodium 139 mmol/L (136-145); Total Bilirubin 0.4 mg/dL (0.15-1.2); Total Protein 7.3 g/dL (6.6-8.7)
[2021-02-24 15:17] LABS: C Reactive Protein 7.5 mg/L (0.0-4.9)
[2021-02-25 12:45] LABS: Erythrocyte Sedimentation Rate 9 mm/hr (0-10)
--- NOTE | 2021-02-28 14:34 | ONC FU_ITS ---
Dr. Huerta follow up note Patient: Peng Cooper Unit #: [id number]: 1945 Dicatated By: Vaibhav Huerta M.D.Date of Visit:Feb 24, 2021 Onc Med Follow-up/Prog Note History of Present Illness: Mr. Peng Cooper, is a 75-year-old gentleman with a history of stage II classical Hodgkin's lymphoma, diagnosed on December 05, 2013, at that time he underwent treatment with ABVD and patient was following Dr. Cristhian Chanel medical oncologist in [place] on yearly basis, with no evidence of disease. As per patient in June 2020 he had episode when carrott got stuck in his throat for which he underwent CT scan of neck on June 16, 2020 which showed partially visualized 3.1 x 1.6 x 2.1 cm right extrapleural chest wall lesion suggesting a fibroma versus other benign or malignant lesion. No obvious esophageal lesion, no obvious radiopaque foreign body in the pharynx or trachea patient was referred to pulmonology, Dr. Germain, who ordered CT PET scan which was done on July 12, 2020 and it showed right upper lobe pleural-based lesion measuring 4.4 x 1.5 cm with SUV of 5.5. And FDG positive mediastinal lymph nodes in the right paratracheal, right hilar and subcarinal distribution. The index subcarinal lymph node has SUV of 4.9. Subcentimeter nodules in the lung apices bilaterally are too small to characterize. 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 There is no significant expression of CD10 or BCL6, CD23 or cyclin D1. [place] and lambda SISSY shows evidence of kappa light chain restriction with areas of strong staining., So differential was marginal zone lymphoma and lymphoplasmacytic lymphoma, tissue block was sent to [facility] for NYD 88 testing to rule out lymphoplasmacytic lymphoma, which came back negative thus lymphoplasmacytic lymphoma was ruled out and patient was diagnosed with marginal zone lymphoma., Patient was evaluated by Dr. Cristhian Chanel medical oncologist and [place] on on December 03, 2020 and he ordered repeat CT PET scan which was done on December 30, 2020 and was compared with CT PET scan from October 26, 2016, not with PET scan from July 2020 which was done in [facility] and it showed interval enlargement of subpleural mass in the lateral right chest with SUV of 5.7. There is also little bit of pleural thickening in the inferior lateral right chest which has borderline increased activity up to 3. Mild increased activity in several lymph nodes in the mediastinum and right and left jo slightly more prominent than in October 2016 which may relate to patient's lymphoma as well. Several small lymph nodes in the retroperitoneum without increased activity. Some chronic fibrotic and cystic changes in the lung bases. Mild increased activity seen multiple small lymph nodes in the right/left jo and then mediastinum in the precarinal and subcarinal area. SUV of 4.9. Lymph nodes are significantly change in size. The maximum SUV 3.5., Dr. Cristhian Chanel recommended radiation therapy to the right pleural-based lesion and Rituxan therapy, as patient lives close to [place], he was referred to our cancer center for above-mentioned treatment. Patient denies any night sweats, denies any weight loss, denies any recurrent fever, patient denies any right chest pain or any new bony pains, patient has history of seropositive rheumatoid arthritis, for which he has been treated with immunosuppressive drugs from time to time and now he is on sulfasalazine and hydroxychloroquine and being followed by rheumatology. Patient denies any peripheral lymphadenopathy, denies any abdominal fullness, denies any hemoptysis or hematemesis, denies any abdominal pain or dysphagia, denies any jaundice Came for follow-up, denies any specific complaints, no fever chills, no nausea or vomiting, no diarrhea or constipation, no abdominal pain, no night sweats, no weight loss, no recurrent fever, no peripheral lymphadenopathy or abdominal fullness Medications: Calcium 1 Tablet (of 600-400 mg - Units) Tablet, chewable Oral daily, [facility] Fish Oil 1 Capsule (of 1000 mg) Oral daily, Daily Multiple Vitamins 1 Tablet Oral daily, FeroSul 1 Tablet (of 325 (65 fe) mg) Oral b.i.d., Folate 1 Tablet (of 400 mcg) Oral daily, Glucosamine Sulfate 1 Tablet (of 500 mg) Capsule Oral b.i.d., HM Selenium 1 Tablet (of 200 mcg) Oral daily, Hydroxychloroquine Sulfate 1 Tablet (of 200 mg) Oral b.i.d., Magnesium 1 Tablet (of 400 mg) Oral daily, oxyCODONE HCl 1 Tablet (of 7.5 mg) Oral ac (tid) & at bedtime PRN, Saw [place] 1 Capsule (of 500 mg) Oral daily, sulfaSALAzine 1 Tablet (of 500 mg) Oral b.i.d. Allergies: No Known Allergies. Review of Systems: Review of Systems is not available for this patient. Vital Signs: Performed on Feb 24, 2021 15:00 Height - 66.00 in Weight - 159.2 lbs (HIGH) BSA - 1.82 sq.m BMI - 25.70 Temperature - 98.2 F (LOW) Pulse - 78 /min Respiration - 17 /min BP - 129/65 mm(hg) O2 Sat - 95 % (LOW) Pain - 6 Fatigue - 0 Performance Status: 0 - Fully active, able to carry on all predisease activities without restrictions. (ECOG) Physical Examination: ENMT - No mouth sores, no thrush, no jaundice, no cervical or axillary lymphadenopathy, Respiratory - Lungs are clear to auscultation, Cardiovascular - Regular rate and rhythm of heart, Abdomen - Soft, bowel sounds present, Extremities - No visible edema. Lab/Imaging: Most recent lab results are not available for this patient. 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 And with FDG positive mediastinal lymph nodes in the right paratracheal, right hilar and subcarinal distribution. Index subcarinal lymph node has SUV of 4.9. Subcentimeter nodules in the lung apices bilaterally are too small to characterize. Repeat CT PET scan done on December 30, 2020 showed interval enlargement of subpleural mass in the lateral right chest with SUV of 5.7. Mild increased activity in the several lymph nodes in the mediastinum and right/left jo, slightly more prominent than CT PET scan done on October 26, 2016. Several small lymph nodes in the retroperitoneum without increased activity. History of classical Hodgkin's lymphoma, stage II diagnosed in 2013 status post ABVD History of seropositive rheumatoid arthritis/Sjogren's since age 36 with history of immunosuppression therapy, now on hydroxychloroquine and sulfasalazine, being followed by rheumatology History of Plan: Discussed with patient regarding his labs white blood count 7 hemoglobin 11.3 g medical 32.7 platelets 178,000 CMP within normal limits, including LDH 203 Clinically, patient is doing well with no B symptoms, on exam no peripheral lymphadenopathy, his lab work-up was within normal range except mild normocytic anemia, which is stable, no elevated bilirubin, LDH is within normal range Clinically, patient doing well with no new signs symptoms suggestive of disease progression, pros and cons associated with Rituxan therapy as offered by his previous medical oncologist, during Covid pandemic were discussed. Patient is not symptomatic except with mild but stable anemia, etiology could be multifactorial, will try to contact Dr. Carlson, radiologist in [place] regarding his CT PET scan again and also DrRia: At [facility] regarding FNA of lymphomatous mass and then at this point, it was decided to monitor him closely patient return to clinic in 2 months with CBC CMP LDH and follow-up CT scan of chest abdomen pelvis, patient was advised in case he develops any B symptoms or any jaundice, he need to call us otherwise will follow him in 2 months as scheduled Signed By: Vaibhav Huerta M.D. <<Signature on File>>
== END 2021-02-24 13:35 | disposition home or self-care (01) ==
LOC: ONCMED 13:37
PROVIDERS: Internal Medicine; PCP Internal Medicine; Visit Provider Internal Medicine Hematology & Oncology
DX: J94.8 Other specified pleural conditions (principal); M05.9 Rheumatoid arthritis with rheumatoid factor, unspecified; D64.9 Anemia, unspecified; M79.7 Fibromyalgia; M19.90 Unspecified osteoarthritis, unspecified site; Z79.899 Other long term (current) drug therapy; Z85.71 Personal history of Hodgkin lymphoma; Z87.891 Personal history of nicotine dependence
CPT/HCPCS: 36415; 80053; 83615; 85025; 85651; 86140; 99214

== ENCOUNTER 2021-04-22 08:42 | Outpatient (CLI) | payer MEDICARE, SELFPAY ==
--- NOTE | 2021-04-22 | CT_ITS ---
WS: [id number] Exam: CT chest w con* [id number] Date/Time of Exam: 04/22/2021 9:19 AM Reason For Exam: NON-HODGKINS LYMPHOMA DLP: 807.[address] scans at [facility] use at least one of these dose optimization techniques: automated e xposure control; mA and/or kV adjustment per patient size (includes targeted exams where dose is matc hed to clinical indication); or iterative reconstruction. CT scan of the chest is performed in the axial plane with coronal and sagittal reformatted images. In travenous contrast was administered. Comparison made to prior PET CT scan of the chest performed 12/30. A 4.8 x 1.4 cm pleural-based mass is noted in the lateral aspect of the right upper lobe and shows li ttle change since the previous study. No new pulmonary nodules or masses have developed since the las t exam. Emphysematous changes and areas of the linear scarring in both lungs stable in appearance. Mi ld bronchiectasis in the bilateral lower lobes. Cystic change and honeycombing in the lower lobes. No pleural or pericardial effusion seen. The airway is patent. The thoracic aorta is normal in caliber. No axillary or subpectoral lymphadenopathy seen. No significant mediastinal or hilar lymphadenopathy . No pleural or pericardial effusion. Small hiatal hernia. No destructive bone lesions are seen. Left shoulder prosthesis. CT sections the upper abdomen demonstrate no significant abnormal finding. CT/CT chest w con* [id number] IMPRESSION: 1. Stable-appearing 4.8 x 1.4 cm pleural-based mass along the lateral aspect of the right upper lobe. 2. No new pulmonary mass or nodule has developed since the prior study. 3. No significant lymphadenopathy in the chest. 4. Emphysematous changes, bronchiectasis and honeycombing in both lungs stable in appearance.
[2021-04-22 09:15] LABS: Basophils # 0.1 10^3/uL (0.0-0.1); Basophils % 0.9 %; Eosinophils # 0.2 10^3/uL (0.0-0.8); Eosinophils % 3.4 %; Hematocrit 33.1 % (42.0-52.0); Hemoglobin 11.5 g/dL (11.7-16.6); Lymphocytes % 17.5 %; Mean Corpuscular HGB Conc 34.7 g/dL (30.0-36.0); Mean Corpuscular Hemoglobin 31.1 pg (28.0-34.0); Mean Corpuscular Volume 89.5 fl (80-94); Mean Platelet Volume 10.7 fL (7.4-10.4); Monocytes # 0.7 10^3/uL (0.2-0.9); Monocytes % 11.6 %; Neutrophils # 3.88 10^3/uL (1.8-7.7); Neutrophils % 66.4 %; Nucleated Red Blood Cells % 0 %; Platelet Count 181 10^3/cmm (130-400); Red Cell Distribution Width 12.3 % (12.1-15.1); White Blood Count 5.8 10^3/uL (4.0-10.0)
[2021-04-22 09:31] LABS: Alanine Aminotransferase 16 U/L (0-41); Albumin Level 4.4 g/dL (3.5-5.2); Alkaline Phosphatase 67 IU/L (40-130); Anion Gap 16.5 (5-19); Aspartate Amino Transferase 25 U/L (0-40); Blood Urea Nitrogen 9 mg/dL (8-23); Calcium 9.6 mg/dL (8.5-10.5); Carbon Dioxide 21 mmol/L (22-29); Chloride 104 mmol/L (98-107); Globulin 2.8 g/dL (1.3-4.6); Glucose 94 mg/dL (65-115); Lactate Dehydrogenase 197 U/L (135-225); Osmolality Calculated 282 mOsm/kg (285-295); Potassium 4.5 mmol/L (3.5-5.1); Sodium 137 mmol/L (136-145); Total Bilirubin 0.4 mg/dL (0.15-1.2); Total Protein 7.2 g/dL (6.6-8.7)
[2021-04-22] MEDS: iohexol 300 mg/mL 100 mL Btl IV (12:34)
== END 2021-04-22 08:43 | disposition home or self-care (01) ==
LOC: ONCMED 08:42
PROVIDERS: PCP Internal Medicine; Visit Provider Internal Medicine Hematology & Oncology
DX: C85.82 Other specified types of non-Hodgkin lymphoma, intrathoracic lymph nodes (principal); R91.1 Solitary pulmonary nodule; J43.9 Emphysema, unspecified; J47.9 Bronchiectasis, uncomplicated
CPT/HCPCS: 36415; 71260; 80053; 83615; 85025; Q9967

== ENCOUNTER → 2021-05-01 09:17 | Outpatient (BNVA) | payer MEDICARE, SELFPAY | PROVIDERS: PCP Internal Medicine; Visit Provider Internal Medicine | DX: M05.79 Rheumatoid arthritis with rheumatoid factor of multiple sites without organ or systems involvement (principal); M16.11 Unilateral primary osteoarthritis, right hip; M17.11 Unilateral primary osteoarthritis, right knee; Z87.891 Personal history of nicotine dependence | CPT/HCPCS: 99213; 99214 ==

== ENCOUNTER 2021-05-13 13:11 | Outpatient (CLI) | payer MEDICARE, SELFPAY ==
--- NOTE | 2021-05-13 13:27 | CT_ITS ---
WS: [id number] CT ABDOMEN AND PELVIS WITH CONTRAST HISTORY: NON-HODGKIN'S LYMPHOMA TECHNIQUE: Imaging performed of the abdomen and pelvis with IV contrast. Single phase imaging of the abdomen. Coronal and sagittal reformats are submitted. All CT scans at [facility] use at [address] one of these dose optimization techniques: automated exposure control; mA and/or kV adjustment per patient size (includes targeted exams where dose is matched to clinical indication); or iterative re construction. IV CONTRAST: Omnipaque 300; 95 mL IV. Oral contrast: Yes. DLP: 1291.9 mGy.cm COMPARISON: PET CT 12/30/[address] 04/22/2021 Lower thorax: Interstitial thickening and fibrotic changes at the lung bases. There is slight pleural thickening at the RIGHT inferior thorax similar to 04/22/2021 study. Very slight elevation of the RIG HT hemidiaphragm. Heart is normal size. Short segment calcification in the pericardium over the RIGHT atrium. No hiatal hernia. Liver/biliary system: Normal size liver. 2 small to characterize low-attenuation nodule towards the R IGHT superior liver. Portal vein is patent. Gallbladder: Normal. No gallstones or wall thickening. No pericholecystic fluid. Pancreas: Mild atrophy. Spleen: Normal size spleen. No mass or infarct. Adrenal glands: Normal. Right kidney: No mass or obstruction. There are a few small cortical defects which are too small to c haracterize. Left kidney: No obstruction or solid mass. 2 small to characterize cortical hypodensities. Aorta: Mild atherosclerosis with no aneurysm. Lymphadenopathy: Subcentimeter retroperitoneal lymph nodes are identified. Stable precaval lymph node since 10/26/2016 and measures 7 mm. There are small subcentimeter para-aortic lymph nodes which also appear unchanged. Low-attenuation soft tissue mass in the RIGHT obturator region was present on the p rior PET/CT of 2016 and 12/30/2020 without increased vascularity. This may be a benign fluid collectio n to the joint replacement. This low-attenuation mass adjacent to the RIGHT obturator measures 5.3 x 3.9 cm. This low-attenuation mass is closely associated with the RIGHT iliac vein and artery. Free fluid: 11 GI tract: Diffuse constipation and fecal retention with overlapping tortuous loops of colon. No obstr uction. Abdominal wall: Unremarkable abdominal wall. No hernia. Pelvis: No free fluid in the pelvis. No interval change. Minimally distended urinary bladder. Surgica l sutures and clips are noted in the RIGHT inguinal region. There are a few small inguinal lymph node s present with no enlarging adenopathy. Bones: Prior RIGHT hip arthroplasty with slight medial migration of the acetabulum. Mild degenerative scoliosis of the lumbar spine. CT/CT abdomen pelvis w con* [id number] IMPRESSION: 1. Retroperitoneal subcentimeter lymph nodes are unchanged since 2016. 2. Low-attenuation mass in the RIGHT obturator region has been stable since and is probably a synovial cyst related to the degenerative changes at the R IGHT hip joint. 3. Diffuse constipation with overlapping loops of colon.
[2021-05-13] MEDS: iohexol 300 mg/mL 50 mL Btl PO (14:49)
[2021-05-13] MEDS: iohexol 300 mg/mL 100 mL Btl IV (14:58)
== END 2021-05-13 13:12 | disposition home or self-care (01) ==
PROVIDERS: PCP Internal Medicine; Visit Provider Internal Medicine Hematology & Oncology
DX: C85.82 Other specified types of non-Hodgkin lymphoma, intrathoracic lymph nodes (principal); K59.00 Constipation, unspecified
CPT/HCPCS: 74177; Q9967

== ENCOUNTER 2021-05-18 08:34 | Outpatient (CLI) | payer MEDICARE, SELFPAY ==
--- NOTE | 2021-05-18 16:30 | ONC FU_ITS ---
Dr. Huerta follow up note Patient: Peng Cooper Unit #: [id number]: [id number] Dicatated By: Vaibhav Huerta M.D.Date of Visit:May 18, 2021 Onc Med Follow-up/Prog Note History of Present Illness: Mr. Peng Cooper, is a 75-year-old gentleman with a history of stage II classical Hodgkin's lymphoma, diagnosed on December 05, 2013, at that time he underwent treatment with ABVD and patient was following Dr. Cristhian Chanel medical oncologist in [place] on yearly basis, with no evidence of disease. As per patient in June 2020 he had episode when carrott got stuck in his throat for which he underwent CT scan of neck on June 16, 2020 which showed partially visualized 3.1 x 1.6 x 2.1 cm right extrapleural chest wall lesion suggesting a fibroma versus other benign or malignant lesion. No obvious esophageal lesion, no obvious radiopaque foreign body in the pharynx or trachea patient was referred to pulmonology, Dr. Germain, who ordered CT PET scan which was done on July 12, 2020 and it showed right upper lobe pleural-based lesion measuring 4.4 x 1.5 cm with SUV of 5.5. And FDG positive mediastinal lymph nodes in the right paratracheal, right hilar and subcarinal distribution. The index subcarinal lymph node has SUV of 4.9. Subcentimeter nodules in the lung apices bilaterally are too small to characterize. 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 There is no significant expression of CD10 or BCL6, CD23 or cyclin D1. [place] and lambda SISSY shows evidence of kappa light chain restriction with areas of strong staining., So differential was marginal zone lymphoma and lymphoplasmacytic lymphoma, tissue block was sent to [facility] for NYD 88 testing to rule out lymphoplasmacytic lymphoma, which came back negative thus lymphoplasmacytic lymphoma was ruled out and patient was diagnosed with marginal zone lymphoma., Patient was evaluated by Dr. Cristhian Chanel medical oncologist and [place] on on December 03, 2020 and he ordered repeat CT PET scan which was done on December 30, 2020 and was compared with CT PET scan from October 26, 2016, not with PET scan from July 2020 which was done in [facility] and it showed interval enlargement of subpleural mass in the lateral right chest with SUV of 5.7. There is also little bit of pleural thickening in the inferior lateral right chest which has borderline increased activity up to 3. Mild increased activity in several lymph nodes in the mediastinum and right and left jo slightly more prominent than in October 2016 which may relate to patient's lymphoma as well. Several small lymph nodes in the retroperitoneum without increased activity. Some chronic fibrotic and cystic changes in the lung bases. Mild increased activity seen multiple small lymph nodes in the right/left jo and then mediastinum in the precarinal and subcarinal area. SUV of 4.9. Lymph nodes are significantly change in size. The maximum SUV 3.5., Dr. Cristhian Chanel recommended radiation therapy to the right pleural-based lesion and Rituxan therapy, as patient lives close to [place], he was referred to our cancer center for above-mentioned treatment. Patient denies any night sweats, denies any weight loss, denies any recurrent fever, patient denies any right chest pain or any new bony pains, patient has history of seropositive rheumatoid arthritis, for which he has been treated with immunosuppressive drugs from time to time and now he is on sulfasalazine and hydroxychloroquine and being followed by rheumatology. Patient denies any peripheral lymphadenopathy, denies any abdominal fullness, denies any hemoptysis or hematemesis, denies any abdominal pain or dysphagia, denies any jaundice Came for follow-up, denies any specific complaints, no fever chills, no nausea or vomiting, no diarrhea or constipation, no night sweats, no hemoptysis or hematemesis, no weight loss, no peripheral lymphadenopathy, no abdominal fullness, appetite is good Medications: Calcium 1 Tablet (of 600-400 mg - Units) Tablet, chewable Oral daily, [facility] Fish Oil 1 Capsule (of 1000 mg) Oral daily, Daily Multiple Vitamins 1 Tablet Oral daily, FeroSul 1 Tablet (of 325 (65 fe) mg) Oral b.i.d., Folate 1 Tablet (of 400 mcg) Oral daily, Glucosamine Sulfate 1 Tablet (of 500 mg) Capsule Oral b.i.d., HM Selenium 1 Tablet (of 200 mcg) Oral daily, Hydroxychloroquine Sulfate 1 Tablet (of 200 mg) Oral b.i.d., Magnesium 1 Tablet (of 400 mg) Oral daily, oxyCODONE HCl 1 Tablet (of 7.5 mg) Oral ac (tid) & at bedtime PRN, Saw [place] 1 Capsule (of 500 mg) Oral daily, sulfaSALAzine 1 Tablet (of 500 mg) Oral b.i.d. Allergies: No Known Allergies. Review of Systems: Review of Systems is not available for this patient. Vital Signs: Performed on May 18, 2021 08:54 Height - 66.00 in Weight - 156.8 lbs (LOW) BSA - 1.80 sq.m BMI - 25.31 Temperature - 97.6 F (LOW) Pulse - 89 /min Respiration - 18 /min BP - 114/73 mm(hg) O2 Sat - 97 % Pain - 7 Fatigue - 0 Performance Status: 0 - Fully active, able to carry on all predisease activities without restrictions. (ECOG) Physical Examination: ENMT - No mouth sores, no thrush, no jaundice, no cervical lymphadenopathy, Respiratory - Lungs are clear to auscultation, Cardiovascular - Regular rate and rhythm of heart, Abdomen - Soft, bowel sounds present, Extremities - No visible edema. Lab/Imaging: Most recent lab results are not available for this patient. 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 And with FDG positive mediastinal lymph nodes in the right paratracheal, right hilar and subcarinal distribution. Index subcarinal lymph node has SUV of 4.9. Subcentimeter nodules in the lung apices bilaterally are too small to characterize. Repeat CT PET scan done on December 30, 2020 showed interval enlargement of subpleural mass in the lateral right chest with SUV of 5.7. Mild increased activity in the several lymph nodes in the mediastinum and right/left jo, slightly more prominent than CT PET scan done on October 26, 2016. Several small lymph nodes in the retroperitoneum without increased activity. follow-up CT scan of chest abdomen pelvis done on April 22, 2021 shows stable appearing 4.8 x 1.4 cm pleural-based mass along the lateral aspect of the right upper lobe. No new pulmonary mass or node has developed since prior study. No significant lymphadenopathy in the chest. CT scan of abdomen pelvis showed retroperitoneal subcentimeter nodes are unchanged since 2017. Low-attenuation mass in the right obturator region has been stable since 2017, probably synovial cyst related to degenerative change in the right hip joint. History of classical Hodgkin's lymphoma, stage II diagnosed in 2014 status post ABVD History of seropositive rheumatoid arthritis/Sjogren's since age 36 with history of immunosuppression therapy, now on hydroxychloroquine and sulfasalazine, being followed by rheumatology History of Plan: Discussed with patient regarding his labs from April 22, 2021 which shows white blood count 5.8 hemoglobin 11.5 g compared to 11.3 g previously hematocrit 33.1 platelets 181,000 CMP within normal limits including LDH 197 compared to 203 previously and follow-up CT scan of chest abdomen pelvis done on April 22, 2021 shows stable appearing 4.8 x 1.4 cm pleural-based mass along the lateral aspect of the right upper lobe. No new pulmonary mass or node has developed since prior study. No significant lymphadenopathy in the chest. CT scan of abdomen pelvis showed retroperitoneal subcentimeter nodes are unchanged since 2017. Low-attenuation mass in the right obturator region has been stable since 2017, probably synovial cyst related to degenerative change in the right hip joint. Clinically, patient doing well with no new signs symptoms, no B symptoms, no peripheral lymphadenopathy, no abdominal fullness, no hemoptysis hematemesis, his follow-up CT scan of chest abdomen pelvis shows no evidence of disease progression or new lesion, stable right upper lobe subpleural mass. Lab work-up is also within normal range except mild anemia which is stable. At this point we will continue to monitor and he will return to clinic in 2 months with CBC CMP, LDH and follow-up CT scan of chest abdomen. We will continue to monitor his right upper lobe Of the lung mass if it shows progression, may consider rebiopsy Signed By: Vaibhav Huerta M.D. <<Signature on File>>
== END 2021-05-18 08:35 | disposition home or self-care (01) ==
PROVIDERS: PCP Internal Medicine; Visit Provider Internal Medicine Hematology & Oncology
DX: C85.82 Other specified types of non-Hodgkin lymphoma, intrathoracic lymph nodes (principal); M35.00 Sjogren syndrome, unspecified; Z79.899 Other long term (current) drug therapy; Z85.71 Personal history of Hodgkin lymphoma
CPT/HCPCS: 99214

== ENCOUNTER 2021-07-13 11:49 | Outpatient (CLI) | payer MEDICARE, SELFPAY ==
--- NOTE | 2021-07-13 12:04 | CT_ITS ---
WS: [id number] CT CHEST AND ABDOMEN WITH CONTRAST HISTORY: NON HODGKIN LYMPHOMA TECHNIQUE: Axial imaging is performed through the chest and abdomen with IV and oral contrast.. Sagit jacquie and coronal reformats. All CT scans at [facility] use at least one of these dose optimiza tion techniques: automated exposure control; mA and/or kV adjustment per patient size (includes targe cheryl exams where dose is matched to clinical indication); or iterative reconstruction. CONTRAST: Visipaque 320; 95 mL IV. DLP: 1305.54 mGy-cm. COMPARISON: 05/13/[address]: Slightly spiculated 7 mm nodule at the RIGHT apex. Slightly increased in size since 05/13/2021 and . Not positive on the PET/CT but this may be due to the small size. There are additional scatt ered subpleural nodules less than 3 mm and chronic emphysematous changes. Pleural-based soft tissue m ass in the RIGHT lateral thorax measures 5.2 x 1.6 cm and was positive on the PET/CT. No significant increase in size. No pneumothorax. No pericardial or pleural effusions. Small lymph node encasement proximal RIGHT lower lobe pulmonary artery measures 14 x 6 mm. Subcarinal lymph node measures 13 mm. The remaining lymph nodes are subcentimeter. Abdomen CT: No adrenal mass. Visualized kidneys are negative. No metastatic disease within the liver or spleen. 2 small to characterize hypodensity in the peripheral RIGHT lobe of the liver. Mild atrophy of the gomez creas. Scattered hypodensities LEFT kidney. No renal obstruction. Mild atherosclerosis of aorta. There are a few retroperitoneal lymph nodes which are subcentimeter. Gastrointestinal tract: Visualized GI tract contains increased fecal content. There is constipation w ith air and fecal retention. No obstructive pattern. Osseous structures: No destructive bone lesions. Facet joint arthritis throughout the lumbar spine. CT/CT chest abdomen w con* IMPRESSION: 1. No significant increase in size of the pleural-based mass in the mid RIGHT lateral thorax now measuring 5.2 x 1.6 cm. 2. Very slight increase in slightly spiculated nodule at the RIGHT apex. This nodule measures 7 mm. Negative on recent PET/CT but this may have been due to t he small size. Early metastatic site is not excluded. 3. Indeterminate RIGHT hilar and subcarinal lymph nodes as above. Recommend cl ose CT follow-up. 4. Chronic emphysematous changes.
[2021-07-13 13:32] LABS: Blood Urea Nitrogen 10 mg/dL (8-23)
[2021-07-13] MEDS: iodixanol 320 mg/mL 100mL Btl IV (13:49)
[2021-07-13] MEDS: iohexol 300 mg/mL 50 mL Btl PO (13:50)
== END 2021-07-13 11:50 | disposition home or self-care (01) ==
PROVIDERS: PCP Internal Medicine; Visit Provider Internal Medicine Hematology & Oncology
DX: C85.82 Other specified types of non-Hodgkin lymphoma, intrathoracic lymph nodes (principal)
CPT/HCPCS: 71260; 74160; 82565; 84520

== ENCOUNTER 2021-07-23 09:02 | Outpatient (CLI) | payer MEDICARE, SELFPAY ==
[2021-07-23 10:06] LABS: Basophils # 0.1 10^3/uL (0.0-0.1); Basophils % 0.9 %; Eosinophils # 0.2 10^3/uL (0.0-0.8); Eosinophils % 3.2 %; Hematocrit 37.2 % (42.0-52.0); Hemoglobin 12.5 g/dL (11.7-16.6); Lymphocytes # 0.9 10^3/uL (0.8-4.8); Lymphocytes % 14.5 %; Mean Corpuscular HGB Conc 33.6 g/dL (30.0-36.0); Mean Corpuscular Hemoglobin 30.6 pg (28.0-34.0); Mean Corpuscular Volume 91.2 fl (80-94); Mean Platelet Volume 11.2 fL (7.4-10.4); Monocytes # 0.7 10^3/uL (0.2-0.9); Monocytes % 10.3 %; Neutrophils # 4.59 10^3/uL (1.8-7.7); Neutrophils % 70.6 %; Nucleated Red Blood Cells % 0 %; Platelet Count 195 10^3/cmm (130-400); Red Blood Count 4.08 10^6/uL (4.1-5.3); White Blood Count 6.5 10^3/uL (4.0-10.0)
[2021-07-23 10:44] LABS: Alanine Aminotransferase 15 U/L (0-41); Albumin Level 4.5 g/dL (3.5-5.2); Alkaline Phosphatase 75 IU/L (40-130); Anion Gap 14.4 (5-19); Aspartate Amino Transferase 24 U/L (0-40); Blood Urea Nitrogen 13 mg/dL (8-23); Calcium 10.8 mg/dL (8.5-10.5); Carbon Dioxide 25 mmol/L (22-29); Chloride 103 mmol/L (98-107); Globulin 3.6 g/dL (1.3-4.6); Glucose 112 mg/dL (65-115); Lactate Dehydrogenase 204 U/L (135-225); Osmolality Calculated 287 mOsm/kg (285-295); Potassium 4.4 mmol/L (3.5-5.1); Sodium 138 mmol/L (136-145); Total Bilirubin 0.5 mg/dL (0.15-1.2); Total Protein 8.1 g/dL (6.6-8.7)
--- NOTE | 2021-07-24 12:04 | ONC FU_ITS ---
Dr. Huerta follow up note Patient: Peng Cooper Unit #: [id number]: 1945 Dicatated By: Vaibhav Huerta M.D.Date of Visit:Jul 23, 2021 Onc Med Follow-up/Prog Note History of Present Illness: Mr. Peng Cooper, is a 75-year-old gentleman with a history of stage II classical Hodgkin's lymphoma, diagnosed on December 05, 2013, at that time he underwent treatment with ABVD and patient was following Dr. Cristhian Chanel medical oncologist in [place] on yearly basis, with no evidence of disease. As per patient in June 2020 he had episode when carrott got stuck in his throat for which he underwent CT scan of neck on June 16, 2020 which showed partially visualized 3.1 x 1.6 x 2.1 cm right extrapleural chest wall lesion suggesting a fibroma versus other benign or malignant lesion. No obvious esophageal lesion, no obvious radiopaque foreign body in the pharynx or trachea patient was referred to pulmonology, Dr. Germain, who ordered CT PET scan which was done on July 12, 2020 and it showed right upper lobe pleural-based lesion measuring 4.4 x 1.5 cm with SUV of 5.5. And FDG positive mediastinal lymph nodes in the right paratracheal, right hilar and subcarinal distribution. The index subcarinal lymph node has SUV of 4.9. Subcentimeter nodules in the lung apices bilaterally are too small to characterize. 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 There is no significant expression of CD10 or BCL6, CD23 or cyclin D1. [place] and lambda SISSY shows evidence of kappa light chain restriction with areas of strong staining., So differential was marginal zone lymphoma and lymphoplasmacytic lymphoma, tissue block was sent to [facility] for NYD 88 testing to rule out lymphoplasmacytic lymphoma, which came back negative thus lymphoplasmacytic lymphoma was ruled out and patient was diagnosed with marginal zone lymphoma., Patient was evaluated by Dr. Cristhian Chanel medical oncologist and [place] on on December 03, 2020 and he ordered repeat CT PET scan which was done on December 30, 2020 and was compared with CT PET scan from October 26, 2016, not with PET scan from July 2020 which was done in [facility] and it showed interval enlargement of subpleural mass in the lateral right chest with SUV of 5.7. There is also little bit of pleural thickening in the inferior lateral right chest which has borderline increased activity up to 3. Mild increased activity in several lymph nodes in the mediastinum and right and left jo slightly more prominent than in October 2016 which may relate to patient's lymphoma as well. Several small lymph nodes in the retroperitoneum without increased activity. Some chronic fibrotic and cystic changes in the lung bases. Mild increased activity seen multiple small lymph nodes in the right/left jo and then mediastinum in the precarinal and subcarinal area. SUV of 4.9. Lymph nodes are significantly change in size. The maximum SUV 3.5., Dr. Cristhian Chanel recommended radiation therapy to the right pleural-based lesion and Rituxan therapy, as patient lives close to [place], he was referred to our cancer center for above-mentioned treatment. Patient denies any night sweats, denies any weight loss, denies any recurrent fever, patient denies any right chest pain or any new bony pains, patient has history of seropositive rheumatoid arthritis, for which he has been treated with immunosuppressive drugs from time to time and now he is on sulfasalazine and hydroxychloroquine and being followed by rheumatology. Patient denies any peripheral lymphadenopathy, denies any abdominal fullness, denies any hemoptysis or hematemesis, denies any abdominal pain or dysphagia, denies any jaundice Follow-up CT scan of chest and abdomen done on July 13, 2021 showed no significant increase in size of pleural-based mass seen mid right lateral thorax, now measure 5.2 x 1.6 cm. When compared with CT scan of chest done on May 13, 2021, very slight increase in slightly spiculated nodule at the right apex, measures 7 mm. Indeterminate right hilar and subcarinal lymph nodes. CT abdomen shows no metastatic disease within the liver. Few retroperitoneal lymph nodes which are subcentimeter. No bony abnormality. Medications: Calcium 1 Tablet (of 600-400 mg - Units) Tablet, chewable Oral daily, [facility] Fish Oil 1 Capsule (of 1000 mg) Oral daily, Daily Multiple Vitamins 1 Tablet Oral daily, FeroSul 1 Tablet (of 325 (65 fe) mg) Oral b.i.d., Folate 1 Tablet (of 400 mcg) Oral daily, Glucosamine Sulfate 1 Tablet (of 500 mg) Capsule Oral b.i.d., HM Selenium 1 Tablet (of 200 mcg) Oral daily, Hydroxychloroquine Sulfate 1 Tablet (of 200 mg) Oral b.i.d., Magnesium 1 Tablet (of 400 mg) Oral daily, oxyCODONE HCl 1 Tablet (of 7.5 mg) Oral ac (tid) & at bedtime PRN, Saw [place] 1 Capsule (of 500 mg) Oral daily, sulfaSALAzine 1 Tablet (of 500 mg) Oral b.i.d. Allergies: No Known Allergies. Review of Systems: Review of Systems is not available for this patient. Vital Signs: Performed on Jul 23, 2021 10:57 Height - 66.00 in Weight - 154.6 lbs (LOW) BSA - 1.79 sq.m BMI - 24.95 Temperature - 97.2 F (LOW) Pulse - 85 /min Respiration - 16 /min BP - 117/74 mm(hg) O2 Sat - 94 % (LOW) Pain - 7 Fatigue - 0 Performance Status: 1 - No physically strenuous activity, but ambulatory and able to carry out light or sedentary work (e.g. office work, light house work). (ECOG) Physical Examination: ENMT - No mouth sores, no thrush, no jaundice, Respiratory - Poor air entry otherwise clear, Cardiovascular - Regular rate and rhythm of heart, Abdomen - Soft, bowel sounds present, Extremities - No visible edema. Lab/Imaging: Most recent lab results are not available for this patient. 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 And with FDG positive mediastinal lymph nodes in the right paratracheal, right hilar and subcarinal distribution. Index subcarinal lymph node has SUV of 4.9. Subcentimeter nodules in the lung apices bilaterally are too small to characterize. Repeat CT PET scan done on December 30, 2020 showed interval enlargement of subpleural mass in the lateral right chest with SUV of 5.7. Mild increased activity in the several lymph nodes in the mediastinum and right/left jo, slightly more prominent than CT PET scan done on October 26, 2016. Several small lymph nodes in the retroperitoneum without increased activity. follow-up CT scan of chest abdomen pelvis done on April 22, 2021 shows stable appearing 4.8 x 1.4 cm pleural-based mass along the lateral aspect of the right upper lobe. No new pulmonary mass or node has developed since prior study. No significant lymphadenopathy in the chest. CT scan of abdomen pelvis showed retroperitoneal subcentimeter nodes are unchanged since 2017. Low-attenuation mass in the right obturator region has been stable since 2017, probably synovial cyst related to degenerative change in the right hip joint. History of classical Hodgkin's lymphoma, stage II diagnosed in 2014 status post ABVD History of seropositive rheumatoid arthritis/Sjogren's since age 36 with history of immunosuppression therapy, now on hydroxychloroquine and sulfasalazine, being followed by rheumatology History of Plan: Discussed with patient regarding his labs white blood count 6.5 hemoglobin 12.5 hematocrit 37.2 platelets 195,000 CMP within normal limits except calcium 10.[address] scan of chest abdomen done on July 13, 2021 which showed no significant increase in size of pleural-based mass in the right lateral thorax normalizing 5.2 x 1.6 cm. Clinically, patient is doing well with no new signs symptom suggestive of disease progression his follow-up CT scan of chest shows persistent right pleural-based mass but stable in size and very slight increase in slightly spiculated nodule at the right apex. Nodule measures 7 mm, indeterminate right hilar and subcarinal lymph nodes, chronic emphysema Discussed with patient regarding options including either considering CT-guided biopsy of right pleural-based mass although it has been stable since May 05 and prior or continue to observe, patient prefer observation, in that case, we will repeat his CT scan of chest in 3 months As far as hypercalcemia is concerned, patient is on [id number] calcium supplement, patient was advised to stop calcium supplements and repeat his calcium level in 2 weeks if it shows resolution then we will see him back in 3 months with CBC CMP and follow-up CT scan of chest abdomen on the other hand if patient has persistent hyperglycemia then consider work-up. Signed By: Vaibhav Huerta M.D. <<Signature on File>>
== END 2021-07-23 09:03 | disposition home or self-care (01) ==
LOC: ONCMED 09:05
PROVIDERS: PCP Internal Medicine; Visit Provider Internal Medicine Hematology & Oncology
DX: C85.82 Other specified types of non-Hodgkin lymphoma, intrathoracic lymph nodes (principal); M05.9 Rheumatoid arthritis with rheumatoid factor, unspecified; Z79.899 Other long term (current) drug therapy; Z85.71 Personal history of Hodgkin lymphoma
CPT/HCPCS: 36415; 80053; 83615; 85025; 99214

== ENCOUNTER → 2021-08-07 09:14 | Outpatient (BNVA) | payer MEDICARE, SELFPAY | PROVIDERS: PCP Internal Medicine; Visit Provider Internal Medicine | DX: M05.79 Rheumatoid arthritis with rheumatoid factor of multiple sites without organ or systems involvement (principal); M19.90 Unspecified osteoarthritis, unspecified site; Z51.81 Encounter for therapeutic drug level monitoring; Z87.891 Personal history of nicotine dependence | CPT/HCPCS: 99213; 99214 ==

== ENCOUNTER 2021-12-10 12:45 | Oncology outpatient (recurring) (ONCR) | payer MEDICARE, SELFPAY ==
--- NOTE | 2021-12-07 10:38 | CT_ITS ---
WS: [id number] CT CHEST AND ABDOMEN WITH CONTRAST HISTORY: NON HODGKIN LYMPHOMA TECHNIQUE: Axial imaging is performed through the chest and abdomen with IV contrast. Sagittal and co cassandra reformats. All CT scans at [facility] use at least one of these dose optimization techn iques: automated exposure control; mA and/or kV adjustment per patient size (includes targeted exams where dose is matched to clinical indication); or iterative reconstruction. CONTRAST: Omnipaque 350; 95 mL IV. DLP: 1116.47 mGy.cm COMPARISON: 07/17/[address]: Hyperinflated lungs from emphysema. Mild honeycombing at the RIGHT lung base. Pleural-based obtuse ma ss in the RIGHT upper thorax reidentified measuring 4.4 x 1.4 cm which is unchanged. There are additi onal numerous nodules scattered throughout both lungs. These are spiculated. 7 mm spiculated nodule a t the RIGHT apex is unchanged. There is an adjacent smaller stable nodule which is spiculated. There is scattered areas of groundglass attenuation bilaterally which are stable. The nodule in the posteri or segment RIGHT lower lobe is reidentified and slightly smaller in size now measuring 7 mm in diamet er. No mediastinal or hilar adenopathy or interval change. Subcentimeter RIGHT hilar lymph nodes are stab le. Largest lymph node measures approximately 8 mm in short axis diameter. Atherosclerosis aorta. Pul monary artery is slightly enlarged. No filling defects proximally. No pericardial or pleural effusion s. Abdomen CT: There are several small scattered hypodensities within the liver which are too small to characterize but also present on the study from 05/13/2021 without increase. Normal portal vein. Normal gallbladde r. Pancreas and spleen are normal. No adrenal mass. Kidneys are normal size and enhancement. No solid mass or obstruction. Mild atherosclerosis aorta with no aneurysm. Celiac axis and SMA are normally e nhancing. No ascites. No enlarging retroperitoneal lymph nodes. No mesenteric adenopathy. Visualized GI tract d emonstrates moderate fecal retention and constipation. Osseous structures: Degenerative spondylitic changes thoracic and lumbar spines. No osteoblastic or o steolytic bone disease. No rib lesions. CT/CT chest abdomen w con* IMPRESSION: 1. No change in appearance of the mediastinal or hilar lymph nodes. 2. No increase in size of pleural-based mass in the mid RIGHT lateral thorax. Mass measures 4.4 x 1.4 cm. 3. Bilateral lung nodules and spiculations are similar to the prior study. No increase in size. Recommend continued close follow-up. 4. No mesenteric or retroperitoneal lymph nodes throughout the abdomen. 5. Stable appearance of the liver.
[2021-12-07 12:57] LABS: Blood Urea Nitrogen 10 mg/dL (8-23)
[2021-12-07] MEDS: iohexol 350 mg/mL 100 mL Btl IV (13:10)
[2021-12-07] MEDS: barium sulfate 450 mL Oral Susp PO (13:11)
== END 2021-12-13 23:59 | disposition home or self-care (01) ==
PROVIDERS: PCP Internal Medicine; Visit Provider Internal Medicine Hematology & Oncology
DX: Z53.9 Procedure and treatment not carried out, unspecified reason (principal)
CPT/HCPCS: 71260; 74160; 82565; 84520

== ENCOUNTER → 2022-01-04 10:45 | Outpatient (BNVA) | payer MEDICARE, SELFPAY | PROVIDERS: PCP Internal Medicine; Visit Provider Internal Medicine Pulmonary Disease | DX: R91.8 Other nonspecific abnormal finding of lung field (principal); M35.00 Sjogren syndrome, unspecified; M05.79 Rheumatoid arthritis with rheumatoid factor of multiple sites without organ or systems involvement; Z77.090 Contact with and (suspected) exposure to asbestos; Z87.891 Personal history of nicotine dependence; Z85.71 Personal history of Hodgkin lymphoma; R13.10 Dysphagia, unspecified | CPT/HCPCS: 99214 ==

== ENCOUNTER 2022-01-29 08:11 | Oncology outpatient (recurring) (ONCR) | payer MEDICARE, SELFPAY ==
[2022-01-29 09:00] LABS: Basophils # 0.1 10^3/uL (0.0-0.1); Basophils % 0.8 %; Eosinophils # 0.3 10^3/uL (0.0-0.8); Hemoglobin 10.9 g/dL (11.7-16.6); Lymphocytes # 0.9 10^3/uL (0.8-4.8); Lymphocytes % 13.6 %; Mean Corpuscular HGB Conc 34.1 g/dL (30.0-36.0); Mean Corpuscular Hemoglobin 31.2 pg (28.0-34.0); Mean Corpuscular Volume 91.7 fl (80-94); Mean Platelet Volume 10.6 fL (7.4-10.4); Monocytes # 0.5 10^3/uL (0.2-0.9); Monocytes % 8.3 %; Neutrophils # 4.56 10^3/uL (1.8-7.7); Nucleated Red Blood Cells % 0 %; Platelet Count 167 10^3/cmm (130-400); Red Blood Count 3.49 10^6/uL (4.1-5.3); Red Cell Distribution Width 12.5 % (12.1-15.1); White Blood Count 6.3 10^3/uL (4.0-10.0)
[2022-01-29 09:14] LABS: Alanine Aminotransferase 16 U/L (0-41); Albumin Level 3.9 g/dL (3.5-5.2); Alkaline Phosphatase 59 U/L (40-130); Anion Gap 13.7 (5-19); Aspartate Amino Transferase 28 U/L (0-40); Blood Urea Nitrogen 9 mg/dL (8-23); Calcium 9.9 mg/dL (8.5-10.5); Carbon Dioxide 22 mmol/L (22-29); Chloride 104 mmol/L (98-107); Globulin 3.2 g/dL (1.3-4.6); Glucose 128 mg/dL (65-115); Osmolality Calculated 282 mOsm/kg (285-295); Potassium 3.7 mmol/L (3.5-5.1); Sodium 136 mmol/L (136-145); Total Bilirubin 0.5 mg/dL (0.15-1.2); Total Protein 7.1 g/dL (6.6-8.7)
[2022-01-29 10:47] LABS: Ferritin 403 ng/mL (30-400); Iron 87 ug/dL (59-158); Percent Saturation 43.2 % (20-50); Total Iron Binding Capacity 201 mcg/dl; Unsaturated Iron Binding 114 ug/dL (112-347)
[2022-01-29 11:03] LABS: Vitamin B12 744 pg/mL (232-1245)
== END 2022-02-12 23:59 | disposition home or self-care (01) ==
PROVIDERS: PCP Internal Medicine; Visit Provider Internal Medicine Hematology & Oncology
DX: C85.82 Other specified types of non-Hodgkin lymphoma, intrathoracic lymph nodes (principal); Z85.71 Personal history of Hodgkin lymphoma; D64.9 Anemia, unspecified; K92.1 Melena; M05.79 Rheumatoid arthritis with rheumatoid factor of multiple sites without organ or systems involvement; B35.1 Tinea unguium; G62.9 Polyneuropathy, unspecified; R60.9 Edema, unspecified; Q82.8 Other specified congenital malformations of skin
CPT/HCPCS: 36415; 73630; 80053; 82607; 82728; 83540; 83550; 85025; 99204; 99214

== ENCOUNTER 2022-03-04 08:51 | Outpatient (CLI) | payer MEDICARE, SELFPAY ==
--- NOTE | 2022-03-04 09:15 | FL_ITS ---
WS: [id number] Barium swallow and esophagram, 03/04/2022 Clinical Data: Dysphagia, food sticks in throat, symptoms for the past year. Comparison: None. Fluoroscopy time: 1min [id number] # of spot films: 9 Findings: The patient swallowed the thick and thin barium, and it flowed through the hypopharynx without hesita tion. There was residual barium throughout the hypopharynx. There is anterior osteoarthritic change a t C5-C6 which impinged on the posterior hypopharynx. No aspiration or penetration occurred. The barium entered the esophagus and there was poor motility throughout. No hiatal hernia, reflux, st ricture, polyp, mass, erosion or ulcer was noted. The patient had surgical clips in the left supracla vicular region. There is a reverse arthroplasty in a shoulder joint. FL/FL barium swallow [id number] Impression: 1. Residual barium in the hypopharynx which passed very slowly into the esophag us. 2. Posterior osteoarthritic impingement on the hypopharynx at C5-C6. 3. Poor motility throughout the entire esophagus.
== END 2022-03-04 08:52 | disposition home or self-care (01) ==
LOC: RAD 08:52
PROVIDERS: PCP Internal Medicine; Visit Provider Internal Medicine Pulmonary Disease
DX: R13.10 Dysphagia, unspecified (principal)
CPT/HCPCS: 74220

== ENCOUNTER → 2022-03-08 10:47 | Outpatient (BNVA) | payer MEDICARE, SELFPAY | PROVIDERS: PCP Internal Medicine; Visit Provider Internal Medicine Pulmonary Disease | DX: R93.3 Abnormal findings on diagnostic imaging of other parts of digestive tract (principal); R91.8 Other nonspecific abnormal finding of lung field; M35.00 Sjogren syndrome, unspecified; M05.79 Rheumatoid arthritis with rheumatoid factor of multiple sites without organ or systems involvement; Z77.090 Contact with and (suspected) exposure to asbestos; Z87.891 Personal history of nicotine dependence; Z85.71 Personal history of Hodgkin lymphoma; R13.10 Dysphagia, unspecified; Z91.89 Other specified personal risk factors, not elsewhere classified; Z92.21 Personal history of antineoplastic chemotherapy | CPT/HCPCS: 99214 ==

== ENCOUNTER → 2022-04-12 10:51 | Outpatient (BNVA) | payer MEDICARE, SELFPAY | PROVIDERS: PCP Internal Medicine; Visit Provider Podiatrist Foot & Ankle Surgery | DX: G60.9 Hereditary and idiopathic neuropathy, unspecified; B35.3 Tinea pedis; M05.79 Rheumatoid arthritis with rheumatoid factor of multiple sites without organ or systems involvement; B35.1 Tinea unguium; R60.9 Edema, unspecified; Q82.8 Other specified congenital malformations of skin | CPT/HCPCS: 11055; 11721 ==

== ENCOUNTER → 2022-04-28 14:40 | Outpatient (BNVA) | payer MEDICARE, SELFPAY | PROVIDERS: PCP Internal Medicine; Visit Provider Internal Medicine Rheumatology | DX: M05.79 Rheumatoid arthritis with rheumatoid factor of multiple sites without organ or systems involvement (principal); Z71.89 Other specified counseling | CPT/HCPCS: 20610; J1030 ==

== ENCOUNTER → 2022-06-07 13:01 | Outpatient (BNVA) | payer MEDICARE, SELFPAY | PROVIDERS: PCP Internal Medicine; Visit Provider Internal Medicine | DX: M19.90 Unspecified osteoarthritis, unspecified site (principal); M05.79 Rheumatoid arthritis with rheumatoid factor of multiple sites without organ or systems involvement | CPT/HCPCS: 73562; 99214 ==

== ENCOUNTER → 2022-06-21 08:24 | Outpatient (BNVA) | payer MEDICARE, SELFPAY | PROVIDERS: PCP Internal Medicine; Visit Provider Podiatrist Foot & Ankle Surgery | DX: L60.8 Other nail disorders (principal); B35.3 Tinea pedis; M05.79 Rheumatoid arthritis with rheumatoid factor of multiple sites without organ or systems involvement; B35.1 Tinea unguium; G62.9 Polyneuropathy, unspecified; R60.9 Edema, unspecified; Q82.8 Other specified congenital malformations of skin | CPT/HCPCS: 11055; 11721 ==

== ENCOUNTER → 2022-06-22 13:18 | Outpatient (BNVA) | payer MEDICARE, SELFPAY | PROVIDERS: PCP Internal Medicine; Visit Provider Orthopaedic Surgery | DX: M75.101 Unspecified rotator cuff tear or rupture of right shoulder, not specified as traumatic (principal) | CPT/HCPCS: 20610; 73030; 99213; J0702; J3490 ==

== ENCOUNTER → 2022-07-08 09:35 | Outpatient (BNVA) | payer MEDICARE, SELFPAY | PROVIDERS: PCP Internal Medicine; Visit Provider Nurse Practitioner Family | DX: M17.12 Unilateral primary osteoarthritis, left knee (principal) | CPT/HCPCS: 99214; J1100; J2795; J3301 ==

== ENCOUNTER 2022-07-08 14:38 | Emergency (ER) | payer MEDICARE, SELFPAY | END 2022-07-08 14:55 | disposition left against medical advice (07) | LOC: ER 20:15 | PROVIDERS: Emergency Provider Family Medicine; PCP Internal Medicine | DX: M17.12 Unilateral primary osteoarthritis, left knee (principal) | CPT/HCPCS: 20610; 99214; J1100; J2795; J3301 ==

== ENCOUNTER 2022-08-19 08:35 | Observation (INO) | payer MEDICARE, SELFPAY ==
[2022-08-19] VITALS (11 sets, daily range): BP systolic 101–129; BP diastolic 63–111; PULSE 76–103; RESP 16–23; TEMP 36.6–37.7; O2SAT 90–97; BMI 23.4
--- NOTE | 2022-08-19 08:40 | XR_ITS ---
WS: [id number] XR chest 1V portable [id number] REASON FOR EXAM: dyspnea/cough FINDINGS: Moderate tortuosity and ectasia of the thoracic aorta with normal heart size. In comparison to previous chest x-ray 10/23/2020 the right extrapleural mass has increased in size. The reticular interstitial lung opacities in both lower lung castellon appear to be chronic compared to the previous examination and a CT scan 07/17/2020. No definite acute pulmonary parenchymal or pleural a bnormality is identified. Moderate degenerative spondylosis in the thoracic spine. Total reverse shoulder arthroplasty. Severe osteoarthropathic change in the right shoulder. XR/XR chest 1V portable [id number] IMPRESSION: Enlarging right extrapleural mass. (This was biopsied 10/23/2020.). No acute or subacute pulmonary parenchymal or pleural abnormality.
--- NOTE | 2022-08-19 08:40 | ECG_ITS ---
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 Measurements Intervals Effie Rate: 85 P: 0 ND: 0 QRS: 18 QRSD: 112 T: 37 QT: 350 QTc: 418 Interpretive Statements ATRIAL FIBRILLATION MODERATE INTRAVENTRICULAR CONDUCTION DELAY [110+ ms QRS DURATION] Compared to ECG 05/29/2018 11:31:26 Intraventricular conduction delay now present Sinus rhythm no longer present Electronically Signed On 08-19-2022 16:38:57 CDT by Reji Lee M.D. [id number]
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
[2022-08-19 09:02] LABS: Basophils % 0.2 %; Eosinophils % 0.3 %; Hematocrit 32.8 % (42.0-52.0); Hemoglobin 11.4 g/dL (11.7-16.6); Lymphocytes # 0.6 10^3/uL (0.8-4.8); Mean Corpuscular HGB Conc 34.8 g/dL (30.0-36.0); Mean Corpuscular Hemoglobin 30.6 pg (28.0-34.0); Mean Corpuscular Volume 88.2 fl (80-94); Mean Platelet Volume 11.2 fL (7.4-10.4); Monocytes # 0.8 10^3/uL (0.2-0.9); Monocytes % 8.1 %; Neutrophils # 8.42 10^3/uL (1.8-7.7); Nucleated Red Blood Cells % 0 %; Platelet Count 169 10^3/cmm (130-400); Red Blood Count 3.72 10^6/uL (4.1-5.3); Red Cell Distribution Width 12.4 % (12.1-15.1); White Blood Count 9.9 10^3/uL (4.0-10.0)
--- NOTE | 2022-08-19 09:07 | XR_ITS ---
WS: [id number] XR pelvis 1-2V* [id number] REASON FOR EXAM: fall FINDINGS: Examination is unchanged compared to the hip examination of 01/29/2019. Total right hip arthroplasty. The arthroplasty components are in proper position and alignment and intact. Deformity of the proximal right femur secondary to old healed fracture. Deformity of the right inferi or pubic ramus at the lower margin of the acetabular prosthesis, old healed fracture. Findings of loosening of the femoral portion of the hip prosthesis. XR/XR pelvis 1-2V* [id number] IMPRESSION: Chronic changes with no definite acute abnormality.
[2022-08-19 09:28] LABS: Alanine Aminotransferase 58 U/L (0-41); Albumin Level 3.6 g/dL (3.5-5.2); Alkaline Phosphatase 72 U/L (40-130); Anion Gap 13.7 (5-19); Aspartate Amino Transferase 85 U/L (0-40); Blood Urea Nitrogen 10 mg/dL (8-23); Calcium 9.7 mg/dL (8.5-10.5); Carbon Dioxide 24 mmol/L (22-29); Chloride 102 mmol/L (98-107); Globulin 3.3 g/dL (1.3-4.6); Glucose 160 mg/dL (65-115); Osmolality Calculated 284 mOsm/kg (285-295); Potassium 3.7 mmol/L (3.5-5.1); Sodium 136 mmol/L (136-145); Total Bilirubin 0.6 mg/dL (0.15-1.2); Total Protein 6.9 g/dL (6.6-8.7)
[2022-08-19 10:36] LABS: Add Urine Microscopic? YES; Bilirubin Urine Neg (Negative); Blood Urine Neg (Negative); Glucose Urine UA Norm (Normal); Ketones Urine Negative (Negative); Leukocyte Esterase Urine Negative (Negative); Nitrate Urine Negative (Negative); Protein Urine Trace (Negative); RBC Urine 0-4 /hpf (0-2); Specific Gravity, Urine 1.015 (1.005-1.030); Urine Appearance Clear (CLEAR); Urine Color Yellow (Yellow); Urobilinogen Urine Neg (Negative); WBC Urine 0-4 /hpf (0-5); pH Urine 5 (5-7)
[2022-08-19 10:37] LABS: Add Urine Culture? No; Hyaline Casts Urine 0-4 /lpf; Mucus Urine TRACE /hpf; Squamous Epithelial Cell Urine 0-4 /hpf (0-5)
--- NOTE | 2022-08-19 11:11 | CT_ITS ---
WS: [id number] CT LUMBAR SPINE, noncontrast. HISTORY: back pain, fall. TECHNIQUE: Contiguous 2.0 mm axial imaging are performed. Sagittal and coronal reformats are submitte d and reviewed. All CT scans at [facility] use at least one of these dose optimization techni ques: automated exposure control; mA and/or kV adjustment per patient size (includes targeted exams w here dose is matched to clinical indication); or iterative reconstruction. IV contrast: None DLP: 425.98 mGy.cm COMPARISON: None available. Normal posterior lumbar alignment. No acute lumbar fractures identified. There is a small Schmorl's n odes superior endplate of L2. Lucency through the base of the osteophyte from the anterior superior e ndplate of L2. This could potentially be a fracture through the base of the osteophyte. Pedicles and transverse processes are normal. Moderate facet joint arthritis throughout the lumbar spine. L1-2: Mild annular disc bulge. L2-3: Mild facet and ligamentum flavum hypertrophy. L3-4: Mild annular disc bulge and facet arthritis. Mild RIGHT foraminal narrowing. L4-5: Facet arthritis with a small central disc protrusion. Mild central and bilateral subarticular r ecess and foraminal stenosis. L5-S1: Broad-based disc bulging contacting the S1 nerve roots bilaterally. Moderate atherosclerotic changes within the visualized abdominal aorta. Small shoddy retroperitoneal lymph nodes. CT/CT lumbar spine wo con* [id number] IMPRESSION: 1. No acute lumbar spine fracture identified. 2. The visualized sacrum is normal. 3. Osteopenia. 4. Facet joint arthritis. 5. Broad-based disc bulging at L5-S1 with mild contact on the S1 nerve roots. 6. Schmorl's nodes superior endplate of L2. Does not appear acute. There is a lucency through the associated osteophyte along the anterior superior endplate of L2. Potential fracture at the base of the osteophyte.
[2022-08-19 11:30] LABS: Creatine Phosphokinase 633 U/L (39-308)
--- NOTE | 2022-08-19 14:45 | P.HP_ITS ---
Providers/Chief Complaint Primary Care Provider: Barrie Bhatt DO Chief Complaint: Weakness History of Present Illness Peng Cooper is a 76 year old male with past medical history of rheumatoid arthritis, chronic alcoholism who lives by himself presented to the hospital via EMS. As per the neighbor who is patient's caregiver he locked himself in the bathroom on Tuesday when he fell and broke bathroom now. Patient was in the bathroom till Tuesday for an 36 hours when hair and makeup designer came and got him out. Since then he has been little more disoriented and complaining of body pain all over hence he presented to the ER. On examination patient is sitting uncomfortably in bed, awake and alert able to have complete conversation. States he has not had alcohol since Tuesday. Denies any history of alcohol withdrawal or alcohol withdrawal seizures. Blood work showed a white count of 9.9, hemoglobin of 11.4, sodium 136, creatinine 0.7, AST/ALT 55/58, creatinine kinase of 633, UA negative for signs of UTI Review of Systems General: Reports: 10 or more systems reviewed and unremarkable except in HPI and below Const: Denies: fever(s), chills, body aches, change in appetite, change in weight, malaise, night sweats, diaphoresis, change in sleep pattern, daytime sleepiness or snoring Eyes: Denies: change in vision, blurry vision, photophobia, eye discomfort or eye discharge ENMT: Denies: throat pain, enlarged tonsils, hoarseness, mouth pain, oral sores, dry mouth, tinnitus, nasal congestion or post nasal drip Card: Denies: chest pain, palpitations, irregular heart rhythm, edema, swelling of feet/ankles, lightheadedness, syncope, pre-syncope, dyspnea on exertion, orthopnea, leg pain with exertion or acrocyanosis Resp: Denies: dyspnea, productive cough, non-productive cough, wheezing, stridor, pain on inspiration, change in phlegm color, hemoptysis or chest congestion GI: Denies: abdominal pain, nausea, vomiting, hematemesis, coffee ground emesis, dysphagia, heartburn, diarrhea, constipation, bloating, GI cramping, change in bowel habits, pain on defecation, hematochezia or melena : Denies: flank pain, difficulty urinating, dysuria, urinary frequency, urinary urgency, urinary hesitancy, urinary dribbling, difficulty starting urination, change in urine stream, nocturia or hematuria Musc: Denies: neck pain, back pain, extremity pain, joint pain, joint swelling, joint redness, joint stiffness or limited range of motion Neuro: Denies: headache(s), numbness in extremities, weakness in extremities, sensory changes, lack of coordination, difficulty walking, frequent falls, dizziness, vertigo, confusion, Slurred speech present, difficulty communicating thoughts or seizure-like activity Psych: Denies: anxiety, depression, mood swings, panic attacks, hopelessness or irritability Endo: Denies: polyuria, polydipsia, tired all the time, cold intolerance, excessive sweating, flushing or heat intolerance Bryant/Lymph: Denies: easy bruising or easy bleeding All/Imm: Denies: tongue swelling, facial swelling or acute wheezing Medications/Allergies Home Medications Medication Instructions Recorded Confirmed Last Taken Type ferrous sulfate 325 mg (65 mg 325 mg PO BID@08,199906/19/19 08/19/22 08/19/22 History iron) tablet magnesium 200 mg tablet 400 mg PO DAILY@0806/19/19 08/19/22 08/19/22 History ds-1-swi-epa-fish oil-vit D3 300 1 cap PO DAILY@79906/19/19 08/19/22 08/19/22 History mg-1,000 mg-1,000 unit capsule saw palmetto 500 mg capsule 500 mg PO BID@08,199906/19/19 08/19/22 08/19/22 History selenium 100 mcg tablet 100 mcg PO DAILY@79906/19/19 08/19/22 08/19/22 History kbrtlexjzwbq-dzusuynx-wgjzbu 1 tab PO DAILY@0800 06/16/20 08/19/22 08/19/22 History tablet (Multivitamin 50 Plus tablet) albuterol sulfate 90 mcg/actuation 2 puff inhalation Q6H PRN 08/04/20 08/19/22 Unknown Rx aerosol inhaler shortness of breath or wheezing #8.5 grams folic acid 1 mg tablet 1 mg PO DAILY@0800 #90 tabs 09/28/21 08/19/22 08/19/22 Rx artificial saliva (yerba savannah and 1 spray mucous membrane Q4H PRN 01/04/22 08/19/22 08/19/22 Rx lytes) spray dry mouth #59 mL glucosamine HCl 750 mg tablet 1,500 mg PO DAILY@0800 01/04/22 08/19/22 08/19/22 History Custom inserts or similar #1 ea 06/21/22 08/19/22 Unknown Rx hydroxychloroquine 200 mg tablet 200 mg PO BID #180 tabs 07/29/22 08/19/22 08/19/22 Rx sulfasalazine 500 mg tablet 0.5 g PO BID@08,1999 #180 tabs 08/03/22 08/19/22 08/19/22 Rx Allergies Allergy/AdvReac Type Severity Reaction Status Date / Time No Known Allergies Allergy Verified 08/19/22 09:43 PFSH Acute PFSH: Medical History (Updated 08/19/22 @ 14:53 by Mango Lau MD) Alcohol abuse Ex-smoker for more than 1 year History of Hodgkin's lymphoma Immunosuppression Iron deficiency anemia Marginal zone lymphoma Osteoarthritis Peripheral neuropathy Primary Sjogren's syndrome Right knee meniscal tear Seropositive rheumatoid arthritis of multiple joints Thoracic outlet syndrome Surgical History History of arthroplasty of left shoulder History of arthroplasty of right hip History of revision of total replacement of right hip joint Status post colonoscopy Status post surgery Bilateral chest surgery for thoracic outlet syndrome Family History Other Cancer Dementia Diabetes Denies family history of CAD (coronary artery disease) Clotting disorder Hyperlipidemia Psychiatric illness Chronic kidney disease (CKD) Suicide Anesthesia complication Bleeding disorder Lung disease Hypertension Stroke Social History Smoking and tobacco status: former smoker Quit status (tobacco): has quit using tobacco Year quit tobacco: 2010 05 [id number] Second hand smoke exposure: No Smoking risk assessment/counseling performed?: Yes Alcohol intake: current Alcohol intake frequency: 0-2 Drinks per Day Alcohol type: beer Caregiver/support person: No Lives independently: Yes Household members: none Housing: House Marital status: / service: No Current occupational status: retired Pets and animals: Yes Current gender identity: Male Vitals/I&O/Wt Last Vital Signs Temp 98.5 F 08/19/22 08:44 Pulse 86 08/19/22 14:03 Resp 23 H 08/19/22 10:01 BP 129/111 08/19/22 14:03 Pulse Ox 90 08/19/22 14:03 O2 Del Method 08/19/22 14:03 Weight last 48 hrs Weight 63.957 kg Physical Exam Narrative: General: No acute distress, AO x3, chronically sick appearing, unkept, pallor present HEENT: PERRLA, pupils bilaterally equal and reactive Chest: Normal vesicular breath sounds, no added sounds, equal good air entry bilaterally CVS: S1-S2 regular, no murmurs, no tachycardia, no gallops, no rubs Abdomen: Soft, nontender, no organomegaly, bowel sounds present Neuro: No focal deficits, no facial deformity, AO x3, power 5/5 in all limbs Data 08/19/22 08:54 08/19/22 08:54 A&P Assessment and plan (1) Malaise: (2) Generalized weakness: (3) Rhabdomyolysis: (4) Alcohol abuse: (5) Physical deconditioning: Plan 76-year-old gentleman who lives by himself, chronic alcoholic with history of rheumatoid arthritis on immunosuppression therapy presented with complaints of generalized malaise, weakness found to be in rhabdomyolysis. Generalized malaise/weakness: Most likely in setting of chronic alcoholism along with rhabdomyolysis. IV fluids with normal saline at 70 cc/h. Check alcohol level, urine drug screen, lactate level, procalcitonin, folate level, respiratory viral panel, TSH, vitamin B12. Chronic alcohol abuse: Denies any history of alcohol withdrawal. Banana bag. Protonix IV. Recent fall: Check CT head without contrast. Denies any other injuries. Able to move all his limbs. Check orthostatics. Continue chronic medications including sulfasalazine. Full code. Regular diet. Protonix OPD prophylaxis Heparin for DVT prophylaxis Discharge plan: Patient lives by himself and is physically deconditioned. States he cannot take care of himself. PT evaluation. Might need placement to SNF or assisted living for long-term care because of high risk of fall and worsening if he lives by himself. Case management alerted. Attestations Medical Necessity Statement*: Admission under observation for less than 2 midnights for management of generalized weakness and malaise along with mild rhabdomyolysis in a patient with chronic alcohol abuse Diagnoses Malaise R53.81 Generalized weakness R53.1 Rhabdomyolysis M62.82 Alcohol abuse F10.10 Physical deconditioning R53.81
--- NOTE | 2022-08-19 14:49 | CT_ITS ---
WS: [id number] CT HEAD NONCONTRAST HISTORY: ams TECHNIQUE: Contiguous axial imaging performed through the brain in 2.5 mm imaging. Bone and soft tiss ue windows. Sagittal and coronal reformats reviewed. All CT scans at [facility] use at least one of these dose optimization techniques: automated exposure control; mA and/or kV adjustment per pa tient size (includes targeted exams where dose is matched to clinical indication); or iterative recon struction. DLP: 1107.28 mGy.cm COMPARISON: 10/04/2016 Mild bifrontal atrophy. No midline shift or mass effect. No hemorrhage. Mild small vessel ischemic disease. Ventricles: Mild ventriculomegaly. Mild prominence of the extra-axial spaces due to atrophy. No inferior displacement of cerebellar tonsils. Paranasal sinuses: As visualized are clear. Mastoid air cells: Well pneumatized. Calvarium and scalp: Skull is intact with no soft tissue edema or swelling. CT/CT head wo con* [id number] IMPRESSION: 1. No acute intracranial hemorrhage or edema. 2. Mild atrophy and small vessel ischemic disease.
[2022-08-19 15:32] LABS: Ammonia 24 umol/L (16-60); Lactic Sepsis W/Reflex 1.4 mmol/L (0.5-2.2)
[2022-08-19 15:48] LABS: Procalcitonin 0.37 ng/mL (0-0.5); Thyroid Stimulating Hormone 3.25 uIU/mL (0.27-4.20); Vitamin B12 1584 pg/mL (232-1245)
[2022-08-19 16:01] LABS: Iron 16 ug/dL (59-158); Percent Saturation 8.3 % (20-50); Total Iron Binding Capacity 191 mcg/dl; Unsaturated Iron Binding 175 ug/dL (112-347)
[2022-08-19 16:02] LABS: Alcohol Level < 10 mg/dL (0-10)
[2022-08-19] MEDS: folic acid 1 MG, multivitamin inj 10 ML, thiamine 100 MG in sodium chloride 0.9% 1,000 ML 252.8 MG IV (16:32)
[2022-08-19 16:38] LABS: Folate Level > 20.0 ng/mL (4.5-32.2)
[2022-08-19] MEDS: heparin 5,000 unit/mL INJ 1 mL 5000 UNIT SUBCUT (17:27)
[2022-08-19] MEDS: pantoprazole 40 mg SDV IVP (17:27)
[2022-08-19 18:37] LABS: Amphetamines Screen Urine Negative (Negative); Barbiturates Screen Urine Negative (Negative); Benzodiazepines Screen Urine Negative (Negative); Cocaine Screen Urine Negative (Negative); Opiate Screen Urine Negative (Negative); PCP Screen Urine Negative (Negative); THC Screen Urine Negative (Negative)
[2022-08-19 20:08] LABS: Adenovirus Not Detected (NOT DETECT); Chlamydia Pneumoniae Not Detected (NOT DETECT); Coronavirus 229E,HKU1,NL63,OC4 Not Detected (NOT DETECT); Human Metapneumovirus Not Detected (NOT DETECT); Human Rhinovirus/Enterovirus Not Detected (NOT DETECT); Influenza A Not Detected (NOT DETECT); Influenza A H1 Not Detected (NOT DETECT); Influenza A H1-2009 Not Detected (NOT DETECT); Influenza A H3 Not Detected (NOT DETECT); Influenza B Not Detected (NOT DETECT); Mycoplasma Pneumoniae Not Detected (NOT DETECT); Parainfluenza Virus Type 1 Not Detected (NOT DETECT); Parainfluenza Virus Type 2 Not Detected (NOT DETECT); Parainfluenza Virus Type 3 Not Detected (NOT DETECT); Parainfluenza Virus Type 4 Not Detected (NOT DETECT); Respiratory Syncytial Virus A Not Detected (NOT DETECT); Respiratory Syncytial Virus B Not Detected (NOT DETECT); SARS-COV-2 Not Detected (NOT DETECT)
[2022-08-19] MEDS: sulfaSALAzine 500 mg Tablet PO (20:12)
[2022-08-19] MEDS: ferrous sulfate EC 325 mg Tablet PO (20:12)
[2022-08-19] MEDS: sodium chloride 0.9% 1,000 ML 100 ML IV (21:05)
[2022-08-19] MEDS: TRAMadol 50 mg Tablet PO (22:40)
[2022-08-20] VITALS (11 sets, daily range): BP systolic 97–126; BP diastolic 51–72; PULSE 61–90; RESP 15–20; TEMP 36.4–37.2; O2SAT 92–97
[2022-08-20] MEDS: bisacodyl 5 mg Tablet 10 MG PO (00:38)
[2022-08-20] MEDS: heparin 5,000 unit/mL INJ 1 mL 5000 UNIT SUBCUT ×2 (03:45→17:08)
[2022-08-20] MEDS: morphine 4 mg/mL SDV 1 mL 2 MG IVP (03:45)
[2022-08-20 05:15] LABS: Basophils % 0.4 %; Eosinophils # 0.1 10^3/uL (0.0-0.8); Eosinophils % 1.8 %; Hematocrit 29.9 % (42.0-52.0); Hemoglobin 9.8 g/dL (11.7-16.6); Lymphocytes # 0.9 10^3/uL (0.8-4.8); Lymphocytes % 11.7 %; Mean Corpuscular HGB Conc 32.8 g/dL (30.0-36.0); Mean Corpuscular Hemoglobin 29.7 pg (28.0-34.0); Mean Corpuscular Volume 90.6 fl (80-94); Mean Platelet Volume 10.9 fL (7.4-10.4); Monocytes # 0.8 10^3/uL (0.2-0.9); Monocytes % 10.8 %; Neutrophils # 5.52 10^3/uL (1.8-7.7); Neutrophils % 74.8 %; Nucleated Red Blood Cells % 0 %; Platelet Count 155 10^3/cmm (130-400); Red Cell Distribution Width 12.3 % (12.1-15.1); White Blood Count 7.4 10^3/uL (4.0-10.0)
[2022-08-20 05:29] LABS: Chol HDL Ratio 2.06 mg/dL (1.0-5.00); Cholesterol 142 mg/dL (0-200); HDL Cholesterol 69 mg/dL (60-100); LDL Cholesterol Calculated 63 mg/dL (50-129); LDL HDL Ratio 0.91 RATIO (0.00-3.22); Triglycerides 48 mg/dL (0-150)
[2022-08-20 05:34] LABS: Alanine Aminotransferase 57 U/L (0-41); Albumin Level 3.1 g/dL (3.5-5.2); Alkaline Phosphatase 71 U/L (40-130); Anion Gap 12.6 (5-19); Aspartate Amino Transferase 70 U/L (0-40); Blood Urea Nitrogen 7 mg/dL (8-23); Calcium 8.9 mg/dL (8.5-10.5); Carbon Dioxide 23 mmol/L (22-29); Chloride 105 mmol/L (98-107); Globulin 2.8 g/dL (1.3-4.6); Glucose 104 mg/dL (65-115); Osmolality Calculated 282 mOsm/kg (285-295); Phosphorus 2.6 mg/dL (2.5-4.5); Potassium 3.6 mmol/L (3.5-5.1); Sodium 137 mmol/L (136-145); Total Bilirubin 0.4 mg/dL (0.15-1.2); Total Protein 5.9 g/dL (6.6-8.7)
[2022-08-20 07:18] LABS: Estmated Average Glucose 91; Hemoglobin A1C 4.8 % (4.0-6.0)
[2022-08-20] MEDS: sodium chloride 0.9% 1,000 ML 100 ML IV ×2 (07:37→17:09)
[2022-08-20] MEDS: ferrous sulfate EC 325 mg Tablet PO ×2 (08:51→20:35)
[2022-08-20] MEDS: folic acid 1 mg Tablet PO (08:51)
[2022-08-20] MEDS: sulfaSALAzine 500 mg Tablet PO ×2 (08:52→20:35)
[2022-08-20] MEDS: TRAMadol 50 mg Tablet PO ×2 (10:42→18:25)
[2022-08-20] MEDS: magnesium hydroxide 30 mL UDC PO (11:08)
[2022-08-20] MEDS: HYDROmorphone 1 mg/mL INJ 1 mL 0.2 MG IVP ×2 (11:20→15:16)
[2022-08-20] MEDS: pantoprazole 40 mg SDV IVP (15:18)
--- NOTE | 2022-08-20 18:25 | PM.PN ---
Subjective Subjective: Patient complains of pain all over. Not getting any better yet. Continues to make urine. No other specific complaints at this time. Remains weak. Vitals/I&O/Wt Last Vital Signs Temp 97.6 F 08/20/22 15:46 Pulse 90 08/20/22 15:46 Resp 17 08/20/22 15:46 BP 97/51 08/20/22 15:46 Pulse Ox 93 08/20/22 15:46 O2 Del Method 08/19/22 23:41 08/20/22 08/20/22 08/20/22 06:59 14:59 22:59 Intake Total 1303.3 / 2434.5 496.7 / 496.7 953.333 / 1450.033 Output Total 600 / 1050 250 / 250 Balance 703.3 / 1384.5 496.7 / 496.7 703.333 / 1200.033 Weight last 48 hrs Weight 63.957 kg Weight 63.957 kg Physical Exam Narrative: Awake and alert, laying in bed. Lungs are clear to auscultation. Regular rhythm. Abdomen is soft. Has scattered bruises. Musculature is tender to palpation in arms and legs. Brisk capillary refill. Data 08/20/22 04:23 08/20/22 04:23 A&P Assessment and plan (1) Generalized weakness: (2) Malaise: (3) Rhabdomyolysis: (4) Alcohol abuse: (5) Physical deconditioning: (6) Iron deficiency anemia: (7) Seropositive rheumatoid arthritis of multiple joints: (8) Primary Sjogren's syndrome: (9) Marginal zone lymphoma: (10) History of Hodgkin's lymphoma: Plan Change fluids to half-normal saline with potassium Continue PT and OT - currently max assist x2 out of bed Recheck CK level in the morning Thiamine, folate, multivitamin Continue ferrous sulfate, will consider a dose of IV iron Resume home Plaquenil On home sulfasalazine On PPI We will check Hemoccult of stool Repeat CBC in the morning Supportive care otherwise Given fall with prolonged inability to get out of the bathroom and subsequent associated medical conditions leading to admission combined with progressive weakness and other comorbid conditions as outlined above. Patient at high risk for recurrent acute issues attempting to manage care on his own. He has shown willingness to try to work with therapy and would benefit from attempt at rehabilitation. Attestations Medical Necessity Statement*: Requires ongoing inpatient stay secondary to continued pain from rhabdomyolysis and being max assist. Other issues and care as noted above. Remains on IV fluids. and Moderate Time for a total of 35 minutes, includes reviewing past or interval history, examining/interviewing patient, placing orders, discussing plan of care with staff and documenting encounter Diagnoses Generalized weakness R53.1 Malaise R53.81 Rhabdomyolysis M62.82 Alcohol abuse F10.10 Physical deconditioning R53.81 Iron deficiency anemia D50.9 Seropositive rheumatoid arthritis of multiple joints M05.79 Primary Sjogren's syndrome M35.00 Marginal zone lymphoma C85.80 History of Hodgkin's lymphoma Z85.71
[2022-08-20] MEDS: sodium chlor 0.45% +KCl 20 mEq 20 MEQ/1,000 ML BAG 100 MEQ IV (18:48)
[2022-08-20] MEDS: oxyCODONE 5 mg IR Tab/Cap PO (22:03)
[2022-08-21] VITALS (10 sets, daily range): BP systolic 103–123; BP diastolic 61–75; PULSE 70–96; RESP 14–19; TEMP 36.6–37.1; O2SAT 90–97
[2022-08-21] MEDS: morphine 4 mg/mL SDV 1 mL 2 MG IVP ×2 (00:44→17:52)
[2022-08-21] MEDS: heparin 5,000 unit/mL INJ 1 mL 5000 UNIT SUBCUT ×2 (04:21→15:03)
[2022-08-21 05:39] LABS: Basophils % 0.4 %; Eosinophils # 0.1 10^3/uL (0.0-0.8); Eosinophils % 1.1 %; Hematocrit 29.2 % (42.0-52.0); Hemoglobin 9.6 g/dL (11.7-16.6); Lymphocytes # 0.5 10^3/uL (0.8-4.8); Lymphocytes % 5.2 %; Mean Corpuscular HGB Conc 32.9 g/dL (30.0-36.0); Mean Corpuscular Hemoglobin 29.7 pg (28.0-34.0); Mean Corpuscular Volume 90.4 fl (80-94); Mean Platelet Volume 10.9 fL (7.4-10.4); Monocytes # 0.7 10^3/uL (0.2-0.9); Monocytes % 6.7 %; Neutrophils # 8.53 10^3/uL (1.8-7.7); Neutrophils % 86.3 %; Nucleated Red Blood Cells % 0 %; Platelet Count 160 10^3/cmm (130-400); Red Blood Count 3.23 10^6/uL (4.1-5.3); Red Cell Distribution Width 12.4 % (12.1-15.1); White Blood Count 9.9 10^3/uL (4.0-10.0)
[2022-08-21 06:00] LABS: Alanine Aminotransferase 101 U/L (0-41); Albumin Level 2.9 g/dL (3.5-5.2); Alkaline Phosphatase 115 U/L (40-130); Aspartate Amino Transferase 113 U/L (0-40); Blood Urea Nitrogen 6 mg/dL (8-23); Calcium 8.9 mg/dL (8.5-10.5); Carbon Dioxide 23 mmol/L (22-29); Chloride 100 mmol/L (98-107); Creatine Phosphokinase 117 U/L (39-308); Glucose 101 mg/dL (65-115); Magnesium 1.8 mg/dL (1.7-2.3); Osmolality Calculated 270 mOsm/kg (285-295); Sodium 131 mmol/L (136-145); Total Bilirubin 0.7 mg/dL (0.15-1.2); Total Protein 5.9 g/dL (6.6-8.7)
[2022-08-21] MEDS: sodium chlor 0.45% +KCl 20 mEq 20 MEQ/1,000 ML BAG 100 MEQ IV ×2 (09:21→20:08)
[2022-08-21] MEDS: pantoprazole DR 40 mg Tablet PO (09:21)
[2022-08-21] MEDS: hydroxychloroquine 200 mg Tablet PO ×2 (09:21→17:33)
[2022-08-21] MEDS: ferrous sulfate EC 325 mg Tablet PO ×2 (09:22→20:08)
[2022-08-21] MEDS: sulfaSALAzine 500 mg Tablet PO ×2 (09:22→20:08)
[2022-08-21] MEDS: magnesium oxide 400 mg tablet PO ×2 (09:22→17:33)
[2022-08-21] MEDS: folic acid 1 mg Tablet PO (09:22)
[2022-08-21] MEDS: oxyCODONE 5 mg IR Tab/Cap PO ×3 (09:22→22:24)
[2022-08-21] MEDS: thiamine 100 mg Tablet PO (09:22)
[2022-08-21] MEDS: magnesium hydroxide 30 mL UDC PO (15:03)
--- NOTE | 2022-08-21 21:23 | PM.PN ---
Subjective Subjective: Complaining of more pain today. CK level was actually improved. His eyes are also quite dry related to his Sjogren syndrome. He says it is difficult to utilize the walker here, hard to do much of anything because of his weakness and pain. Vitals/I&O/Wt Last Vital Signs Temp 98.8 F 08/21/22 20:00 Pulse 84 08/21/22 20:00 Resp 17 08/21/22 20:00 BP 123/75 08/21/22 20:00 Pulse Ox 93 08/21/22 20:00 O2 Del Method 08/21/22 08:00 O2 Flow Rate 2 08/21/22 20:00 08/21/22 08/21/22 08/21/22 06:59 14:59 22:59 Intake Total 865 / 3440.033 1175 / 1175 1000 / 2175 Output Total 300 / 850 1600 / 1600 Balance 565 / 2590.033 1175 / 1175 -600 / 575 Weight last 48 hrs Weight 69.49 kg Physical Exam Narrative: Awake and alert, laying in bed. Lungs are clear to auscultation. Regular rhythm. Abdomen is soft. . Musculature is tender to palpation wherever he is touched. No new bruising. Data 08/21/22 04:32 08/21/22 04:32 Other Labs: Laboratory Tests 08/21/22 04:32 Creatine Kinase 117 A&P Assessment and plan (1) Generalized weakness: Multifactorial (2) Malaise: Multifactorial (3) Rhabdomyolysis: Present on admission, resolved with hydration in terms of CK level but continues to complain of increased muscle pain (4) Alcohol abuse: Chronic, not demonstrating symptoms suggestive of withdrawal (5) Physical deconditioning: Has been progressive over time to the point that he is unable to care for himself (6) Iron deficiency anemia: Chronic losses suspected (7) Seropositive rheumatoid arthritis of multiple joints: On chronic sulfasalazine and hydroxychloroquine (8) Primary Sjogren's syndrome: With current dry eyes (9) Marginal zone lymphoma: Observant management currently (10) History of Hodgkin's lymphoma: Plan Decreased rate of fluids IV fluids We will add some Flexeril and monitor tolerance to this Has pain medications which he is taking Add laxatives Artificial tears ordered Continue PT and OT Thiamine, folate, multivitamin Continue ferrous sulfate, will give dose of iron sucrose On home Plaquenil On home sulfasalazine On PPI Hemoccult of stool ordered Supportive care otherwise Given fall with prolonged inability to get out of the bathroom and subsequent associated medical conditions leading to admission combined with progressive weakness and other comorbid conditions as outlined above, patient at high risk for recurrent acute issues attempting to manage care on his own. He has shown willingness to try to work with therapy and would benefit from attempt at rehabilitation. Tentative plan is for discharge to skilled facility when stable Full code Attestations Medical Necessity Statement*: Requires ongoing stay for monitoring postacute rhabdomyolysis. Receiving IV iron sucrose. Ideally would like pain to be under better control prior to disposition if possible to limit potential need for sedating medications at rehabilitation facility. Coding Level of Care Code 72254 Moderate Time for a total of 35 minutes, includes reviewing past or interval history, examining/interviewing patient, discussing plan of care with staff and documenting encounter Diagnoses Generalized weakness R53.1 Malaise R53.81 Rhabdomyolysis M62.82 Alcohol abuse F10.10 Physical deconditioning R53.81 Iron deficiency anemia D50.9 Seropositive rheumatoid arthritis of multiple joints M05.79 Primary Sjogren's syndrome M35.00 Marginal zone lymphoma C85.80 History of Hodgkin's lymphoma Z85.71
[2022-08-21] MEDS: iron sucrose 200 MG in sodium chloride 0.9% (100 ml) 100 ML 220 MG IV (22:19)
[2022-08-22] VITALS (12 sets, daily range): BP systolic 121–138; BP diastolic 68–80; PULSE 76–104; RESP 16–19; TEMP 36.4–37.2; O2SAT 90–97
[2022-08-22] MEDS: heparin 5,000 unit/mL INJ 1 mL 5000 UNIT SUBCUT ×2 (04:49→16:35)
[2022-08-22] MEDS: oxyCODONE 5 mg IR Tab/Cap PO (04:51)
[2022-08-22 05:59] LABS: Basophils % 0.3 %; Eosinophils # 0.2 10^3/uL (0.0-0.8); Eosinophils % 2.2 %; Hematocrit 30.6 % (42.0-52.0); Hemoglobin 10.2 g/dL (11.7-16.6); Lymphocytes # 0.7 10^3/uL (0.8-4.8); Lymphocytes % 7.5 %; Mean Corpuscular HGB Conc 33.3 g/dL (30.0-36.0); Mean Platelet Volume 11.1 fL (7.4-10.4); Monocytes % 10.7 %; Neutrophils # 7.21 10^3/uL (1.8-7.7); Nucleated Red Blood Cells % 0 %; Platelet Count 182 10^3/cmm (130-400); Red Cell Distribution Width 12.4 % (12.1-15.1); White Blood Count 9.1 10^3/uL (4.0-10.0)
[2022-08-22 06:21] LABS: Alanine Aminotransferase 124 U/L (0-41); Alkaline Phosphatase 147 U/L (40-130); Anion Gap 13.2 (5-19); Aspartate Amino Transferase 119 U/L (0-40); Blood Urea Nitrogen 5 mg/dL (8-23); Calcium 9.4 mg/dL (8.5-10.5); Carbon Dioxide 24 mmol/L (22-29); Chloride 98 mmol/L (98-107); Globulin 3.2 g/dL (1.3-4.6); Glucose 117 mg/dL (65-115); Osmolality Calculated 270 mOsm/kg (285-295); Potassium 4.2 mmol/L (3.5-5.1); Sodium 131 mmol/L (136-145); Total Bilirubin 0.5 mg/dL (0.15-1.2); Total Protein 6.2 g/dL (6.6-8.7)
[2022-08-22] MEDS: morphine 4 mg/mL SDV 1 mL 2 MG IVP ×2 (08:02→18:34)
[2022-08-22] MEDS: sulfaSALAzine 500 mg Tablet PO ×2 (09:05→19:57)
[2022-08-22] MEDS: sennosides-docusate Tablet 1 TAB PO ×2 (09:06→17:42)
[2022-08-22] MEDS: magnesium oxide 400 mg tablet PO ×2 (09:06→17:41)
[2022-08-22] MEDS: folic acid 1 mg Tablet PO (09:06)
[2022-08-22] MEDS: ferrous sulfate EC 325 mg Tablet PO ×2 (09:06→19:57)
[2022-08-22] MEDS: pantoprazole DR 40 mg Tablet PO (09:06)
[2022-08-22] MEDS: hydroxychloroquine 200 mg Tablet PO ×2 (09:06→17:41)
[2022-08-22] MEDS: thiamine 100 mg Tablet PO (09:06)
[2022-08-22] MEDS: artificial tears Op Soln 15 mL Btl 1 DROP EYE-BOTH (16:42)
[2022-08-22] MEDS: bisacodyl 5 mg Tablet 10 MG PO (20:00)
--- NOTE | 2022-08-22 22:26 | PM.PN ---
Subjective Subjective: Still hurting but overall better. Thinks he did better with physical therapy today but it still a struggle. Not had a bowel movement. Eyes are better after artificial tears added. Vitals/I&O/Wt Last Vital Signs Temp 98.4 F 08/22/22 20:17 Pulse 100 08/22/22 20:17 Resp 18 08/22/22 20:17 BP 129/80 08/22/22 20:17 Pulse Ox 94 08/22/22 20:17 O2 Del Method 08/22/22 16:00 O2 Flow Rate 2 08/22/22 08:00 08/22/22 08/22/22 08/22/22 06:59 14:59 22:59 Intake Total 1000 / 3525 960 / 960 480 / 1440 Output Total 2300 / 3900 880 / 880 Balance -1300 / -375 960 / 960 -400 / 560 Weight last 48 hrs Weight 69.264 kg Weight 69.49 kg Physical Exam Narrative: Looks less uncomfortable today. Eyes without discharge today. Musculature not as tender. Remains weak with muscle wasting noted. No change to bruises. Data 08/22/22 04:36 08/22/22 04:36 A&P Assessment and plan (1) Generalized weakness: Multifactorial, improving (2) Malaise: Multifactorial, improving (3) Rhabdomyolysis: Present on admission, resolved with hydration in terms of CK level but continues to complain of increased muscle pain (4) Alcohol abuse: Chronic, not demonstrating symptoms suggestive of withdrawal (5) Physical deconditioning: Has been progressive over time to the point that he is unable to care for himself. He expresses desire to continue working with therapy productively (6) Iron deficiency anemia: Chronic losses suspected (7) Seropositive rheumatoid arthritis of multiple joints: On chronic sulfasalazine and hydroxychloroquine (8) Primary Sjogren's syndrome: Dry eyes are better with artificial tears (9) Marginal zone lymphoma: Observant management currently (10) History of Hodgkin's lymphoma: (11) Constipation: Plan Transaminitis, may be related to medications or alcohol use, hydration a consideration, not complaining of abdominal pain Hyponatremia related to fluid administration Stop IVFs Monitor pain and use of medications Add metamucil and pren dulcolax Artificial tears as needed Continue PT and OT Thiamine, folate, multivitamin Continue ferrous sulfate, status post one dose of iron sucrose On home Plaquenil On home sulfasalazine On PPI Hemoccult of stool ordered but no BM yet Supportive care otherwise Tentative plan for discharge to SNF in am Full code Attestations Medical Necessity Statement*: Ongoing observation stay awaiting snf placement for ongoing rehabilitation. Not safe for DC on own after events at presentation. Coding Level of Care Code 43952 Moderate Time for a total of 35 minutes, includes examining/interviewing patient, placing orders, discussing plan of care with staff and documenting encounter Diagnoses Generalized weakness R53.1 Malaise R53.81 Rhabdomyolysis M62.82 Alcohol abuse F10.10 Physical deconditioning R53.81 Iron deficiency anemia D50.9 Seropositive rheumatoid arthritis of multiple joints M05.79 Primary Sjogren's syndrome M35.00 Marginal zone lymphoma C85.80 History of Hodgkin's lymphoma Z85.71 Constipation K59.00
[2022-08-23] VITALS (8 sets, daily range): BP systolic 112–143; BP diastolic 72–79; PULSE 80–95; RESP 16–18; TEMP 36.6–37.1; O2SAT 94–95
[2022-08-23] MEDS: heparin 5,000 unit/mL INJ 1 mL 5000 UNIT SUBCUT (04:42)
[2022-08-23] MEDS: thiamine 100 mg Tablet PO (08:46)
[2022-08-23] MEDS: magnesium oxide 400 mg tablet PO (08:46)
[2022-08-23] MEDS: sennosides-docusate Tablet 2 TAB PO (08:46)
[2022-08-23] MEDS: hydroxychloroquine 200 mg Tablet PO (08:46)
[2022-08-23] MEDS: folic acid 1 mg Tablet PO (08:46)
[2022-08-23] MEDS: ferrous sulfate EC 325 mg Tablet PO (08:46)
[2022-08-23] MEDS: pantoprazole DR 40 mg Tablet PO (08:46)
[2022-08-23] MEDS: sulfaSALAzine 500 mg Tablet PO (08:47)
[2022-08-23] MEDS: psyllium powder Pkt 1 PACKET PO (08:47)
[2022-08-23] MEDS: oxyCODONE 5 mg IR Tab/Cap PO (11:07)
--- NOTE | 2022-08-23 16:20 | PC.NURSE ---
This nurse called [facility] and spoke to ABIGAIL Navas, and gave report on patient. Answered all questions at this time.
[2022-08-23 16:29] LABS: SARS Covid-2 Antigen negative (Negative)
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
== END 2022-08-23 17:00 | disposition skilled nursing facility (03) ==
LOC: ER 15:52 → MEDSURG 16:05
PROVIDERS: Hospitalist; Admitting Provider Student in an Organized Health Care Education/Training Program; Emergency Provider Family Medicine; PCP Internal Medicine; Visit Provider Internal Medicine
DX: M62.82 Rhabdomyolysis (principal); K59.00 Constipation, unspecified; D50.9 Iron deficiency anemia, unspecified; M05.79 Rheumatoid arthritis with rheumatoid factor of multiple sites without organ or systems involvement; Z75.1 Person awaiting admission to adequate facility elsewhere; R91.8 Other nonspecific abnormal finding of lung field; I48.91 Unspecified atrial fibrillation; I45.89 Other specified conduction disorders; Z85.71 Personal history of Hodgkin lymphoma; Z87.891 Personal history of nicotine dependence; M35.00 Sjogren syndrome, unspecified; M19.90 Unspecified osteoarthritis, unspecified site; M47.819 Spondylosis without myelopathy or radiculopathy, site unspecified; M51.37 Other intervertebral disc degeneration, lumbosacral region; R53.1 Weakness; Z96.641 Presence of right artificial hip joint; F10.10 Alcohol abuse, uncomplicated; D84.821 Immunodeficiency due to drugs; Z79.60 Long term (current) use of unspecified immunomodulators and immunosuppressants; R53.81 Other malaise; R74.01 Elevation of levels of liver transaminase levels; E87.1 Hypo-osmolality and hyponatremia
CPT/HCPCS: 36415; 70450; 71045; 72131; 72170; 80053; 80061; 80306; 80307; 81001; 82140; 82550; 82607; 82746; 83036; 83540; 83550; 83605; 83735; 84100; 84145; 84443; 85025; 87426; 87486; 87581; 87633; 93005; 94664; 96361; 96365; 96372; 96375; 97110; 97161; 97166; 97530; 97535; 99285; C9113; G0378; J1170; J1644; J1756; J2270; J3411; J3480; J3490; J7030

== ENCOUNTER → 2022-09-13 09:52 | Outpatient (BNVA) | payer MEDICARE, SELFPAY | PROVIDERS: PCP Internal Medicine; Visit Provider Internal Medicine | DX: M19.90 Unspecified osteoarthritis, unspecified site (principal); G62.9 Polyneuropathy, unspecified; M05.79 Rheumatoid arthritis with rheumatoid factor of multiple sites without organ or systems involvement; Z51.81 Encounter for therapeutic drug level monitoring; R74.8 Abnormal levels of other serum enzymes; R63.4 Abnormal weight loss | CPT/HCPCS: 80053; 82550; 85025; 85651; 86140; 99214 ==

== ENCOUNTER 2022-09-16 07:24 | Outpatient (CLI) | payer MEDICARE, SELFPAY ==
--- NOTE | 2022-09-16 08:00 | CTR_ITS ---
PROCEDURE INFORMATION: Exam: CT Chest With Contrast; Diagnostic Exam date and time: 09/16/2022 9:16 AM Age: 76 years old Clinical indication: Condition or disease; Follow-up oncological assessment; Prior surgery; Surgery type: Shoulder hip; Patient HX: Non hodgkins lymphoma with chemo ending approx 8 yrs ago; Additional info: Follow up TECHNIQUE: Imaging protocol: Diagnostic computed tomography of the chest with contrast. Total images: 4 Radiation optimization: All CT scans at this facility use at least one of these dose optimization techniques: automated exposure control; mA and/or kV adjustment per patient size (includes targeted exams where dose is matched to clinical indication); or iterative reconstruction. Contrast material: OMNI 350; Contrast volume: 100 ml; Contrast route: INTRAVENOUS (IV); REPORTING DATA: Count of CT and Cardiac NM exams in prior 12 months: This patient has received 3 known CTs and 0 known cardiac nuclear medicine studies in the 12 months prior to the current study. COMPARISON: CT chest abdomen w con* 12/07/2021 1:04 PM RADIATION DOSE METRICS: Total DLP (mGy-cm): 731.67 FINDINGS: Lungs: Honeycombing noted at right lung base unchanged. Increased interstitial opacity and irregular areas of lung consolidation at the left lung base felt to represent combination of chronic lung changes with edema and or pneumonia. Bilateral lung nodules some with minimal spiculations unchanged from prior exam. Pleural spaces: Small left pleural fluid collections with suspected loculations. Right pleural based mass lateral right upper lobe series 3, image 28 unchanged from prior exam. There is right apical pleural thickening, likely related to chronic pleural-parenchymal scarring. This finding is stable when compared to the prior exam. Heart: Unremarkable. No cardiomegaly. No pericardial effusion. Lymph nodes: Numerous mildly prominent mediastinal lymph nodes unchanged. No pathological adenopathy is detected. Vasculature: Unremarkable. No aortic aneurysm. Bones/joints: Spinal degenerative changes are evident. Old right rib fractures are evident. Old left rib fractures are evident. Left shoulder arthroplasty. Soft tissues: Unremarkable. Other findings: Fleischner follow up recommendations for incidental nodules are not indicated. Follow up per patient's medical condition. PROCEDURE INFORMATION: Exam: CT Abdomen And Pelvis With Contrast Exam date and time: 09/16/2022 9:16 AM Age: 76 years old Clinical indication: Condition or disease; Follow-up oncological assessment; Prior surgery; Surgery type: Shoulder hip; Patient HX: Non hodgkins lymphoma with chemo ending approx 8 yrs ago; Additional info: Follow up TECHNIQUE: Imaging protocol: Computed tomography of the abdomen and pelvis with contrast. Radiation optimization: All CT scans at this facility use at least one of these dose optimization techniques: automated exposure control; mA and/or kV adjustment per patient size (includes targeted exams where dose is matched to clinical indication); or iterative reconstruction. Contrast material: OMNI 350; Contrast volume: 100 ml; Contrast route: INTRAVENOUS (IV); REPORTING DATA: Count of CT and Cardiac NM exams in prior 12 months: This patient has received 3 known CTs and 0 known cardiac nuclear medicine studies in the 12 months prior to the current study. COMPARISON: CT chest abdomen w con* 12/07/2021 1:04 PM RADIATION DOSE METRICS: Total DLP (mGy-cm): 731.67 FINDINGS: Liver: Normal. No mass. Gallbladder and bile ducts: Normal. No calcified stones. No ductal dilation. Pancreas: Normal. No ductal dilation. Spleen: Normal. No splenomegaly. Adrenal glands: Normal. No mass. Kidneys and ureters: Normal. No hydronephrosis. Stomach and bowel: Moderate stool burden. Appendix: No evidence of appendicitis. Intraperitoneal space: Unremarkable. No free air. No significant fluid collection. Vasculature: Mild atherosclerotic disease is evident. Incidental phleboliths noted. Lymph nodes: Unremarkable. No enlarged lymph nodes. Urinary bladder: Unremarkable as visualized. Reproductive: Unremarkable as visualized. Bones/joints: Right hip arthroplasty is present. Spinal degenerative changes are evident. Facet joint degenerative changes are present. Soft tissues: Postsurgical changes noted in the right groin CT/CT chest abdpel w/*[id number] IMPRESSION: 1. Small left pleural fluid collections with suspected loculations. 2. Right pleural based mass lateral right upper lobe series 3, image 28 unchanged from prior exam. 3. Numerous mildly prominent mediastinal lymph nodes unchanged. 4. There is right apical pleural thickening, likely related to chronic pleural-parenchymal scarring. This finding is stable when compared to the prior exam. 5. Honeycombing noted at right lung base unchanged. Increased interstitial opacity and irregular areas of lung consolidation at the left lung base felt to represent combination of chronic lung changes with edema and or pneumonia. 6. No pathological adenopathy is detected. 7. Bilateral lung nodules some with minimal spiculations unchanged from prior exam. 8. No new pathology detected. IMPRESSION: Moderate stool burden.
[2022-09-16] MEDS: iohexol 350 mg/mL 500 mL Btl (per mL) PO (09:07)
[2022-09-16] MEDS: iohexol 350 mg/mL 500 mL Btl (per mL) IV (09:07)
== END 2022-09-16 07:25 | disposition home or self-care (01) ==
LOC: RAD 07:31
PROVIDERS: PCP Internal Medicine; Visit Provider Internal Medicine Hematology & Oncology
DX: Z85.71 Personal history of Hodgkin lymphoma (principal)
CPT/HCPCS: 71260; 74177; Q9967

== ENCOUNTER → 2022-10-06 11:00 | Outpatient (BNVA) | payer MEDICARE, SELFPAY | PROVIDERS: PCP Internal Medicine; Visit Provider Nurse Practitioner Family | DX: M17.11 Unilateral primary osteoarthritis, right knee (principal) | CPT/HCPCS: 20610; 99213; J1100; J2795; J3301 ==

== ENCOUNTER → 2022-10-18 10:32 | Outpatient (BNVA) | payer MEDICARE, SELFPAY | PROVIDERS: PCP Internal Medicine; Visit Provider Podiatrist Foot & Ankle Surgery | DX: I73.9 Peripheral vascular disease, unspecified (principal); B35.1 Tinea unguium; L84 Corns and callosities; G62.9 Polyneuropathy, unspecified | CPT/HCPCS: 11056; 11721 ==

== ENCOUNTER 2023-01-21 10:12 | Emergency (ER) | payer MEDICARE, SELFPAY ==
[2023-01-21 10:19] VITALS: BP 85/59; PULSE 84; RESP 18; TEMP 36.6; O2SAT 92
[2023-01-21 10:39] VITALS: RESP 18; O2SAT 94
--- NOTE | 2023-01-21 10:50 | XR_ITS ---
WS: [id number] Right arm and humerus, 2 views, 01/21/2023 Clinical Data: pain Comparison: Right shoulder, 06/22/2022 Findings: No fractures or dislocations are seen. The shaft of the humerus is intact. There is irregularity of the greater tuberosity and narrowing of the glenohumeral joint. There is narrowing of the articulatio n between the distal right humerus and the radial head in the coronoid process of the ulna. The soft tissues are normal. Impression: 1. 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 2. Osteoarthritis of the right elbow joint.
--- NOTE | 2023-01-21 10:50 | XR_ITS ---
WS: [id number] Left knee, 3 views, 01/21/2023 Clinical Data: trauma Comparison: Left knee, 06/07/2022 Findings: No fractures or dislocations are seen. The joint spaces are normal. The patella is intact. The soft t issues are unremarkable. Impression: Negative left knee. Kellgren-Kavin Classification: grade 0 (none): definite absence of x-ray changes of osteoarthritis
--- NOTE | 2023-01-21 10:50 | XR_ITS ---
WS: [id number] Right knee, 3 views, 01/21/2023 Clinical Data: trauma Comparison: Right knee, 06/07/2022 Findings: No fractures or dislocations are seen. The joint spaces are normal. The patella is intact. The soft t issues are unremarkable. The distal intramedullary selin in the femur is seen. Impression: Negative right knee. Kellgren-Kavin Classification: grade 0 (none): definite absence of x-ray changes of osteoarthritis
--- NOTE | 2023-01-21 10:53 | W.ED.FALL ---
HPI - Fall General: Chief Complaint: Fall Stated Complaint: fall Time Seen by Provider: 01/21/23 10:22 Source: patient Mode of arrival: EMS History of Present Illness: 77-year-old male who lives at home fell out of bed and could not get up he states he lives at home alone he has neighbors to assist him at times. He fell out of bed this morning did not strike his head but he could not get back up and crawled around on the floor he is got some abrasions to his knees they look a little bit older than just this morning. He also has some skin tears on the right arm and shoulder from another fall yesterday. He is not on any anticoagulants he denies striking his head to the these episodes or losing consciousness she denies chest pain or shortness of breath. MD complaint: fall Onset (ago): minute(s) Fall from: out of bed Fall witnessed: no Place fall occurred: home Loss of consciousness: None Associated symptoms-after fall: Denies abdominal pain or chest pain Review of Systems Const: Denies: fever(s), chills, body aches, change in appetite, fatigue or malaise ENMT: Denies: throat pain, ear or mastoid pain, nasal discharge or nasal congestion Card: Denies: chest pain, edema, dyspnea on exertion or orthopnea Resp: Denies: dyspnea, productive cough or non-productive cough GI: Denies: abdominal pain, nausea, vomiting, hematemesis, coffee ground emesis, diarrhea, constipation, bloating, hematochezia or melena : Denies: flank pain, dysuria, urinary frequency or urinary urgency Skin/Breast: Denies: rash or pruritus PFS ED PFSH: Medical History Alcohol abuse Ex-smoker for more than 1 year History of exposure to asbestos History of Hodgkin's lymphoma diagnosed in 2013, treated with ABVD with good result History of PFTs Immunosuppression Iron deficiency anemia Marginal zone lymphoma identified in 2020 and 2021, observant management Neuropathy Osteoarthritis Peripheral neuropathy Primary Sjogren's syndrome Right knee meniscal tear Seropositive rheumatoid arthritis of multiple joints Thoracic outlet syndrome Weight loss Surgical History History of arthroplasty of left shoulder History of arthroplasty of right hip History of revision of total replacement of right hip joint Status post colonoscopy Status post surgery Bilateral chest surgery for thoracic outlet syndrome Family History Other Cancer Dementia Diabetes Denies family history of CAD (coronary artery disease) Clotting disorder Hyperlipidemia Psychiatric illness Chronic kidney disease (CKD) Suicide Anesthesia complication Bleeding disorder Lung disease Hypertension Stroke Social History Smoking and tobacco status: former smoker Quit status (tobacco): has quit using tobacco Year quit tobacco: 2010 [id number] Second hand smoke exposure: No Smoking risk assessment/counseling performed?: Yes Alcohol intake: current Alcohol intake frequency: 0-2 Drinks per Day Alcohol type: beer Substance/Drug Use: never Caregiver/support person: No Lives independently: Yes Household members: none Housing: House Marital status: / service: No Current occupational status: retired Pets and animals: Yes Do you think of yourself as: Straight/Heterosexual Current gender identity: Male Physical Exam Const: GENERAL APPEARANCE: cooperative and comfortable ORIENTATION/CONSCIOUSNESS: Yes awake, Yes oriented to person, Yes oriented to place and Yes oriented to time HENMT: COMMON NORMALS: normocephalic, atraumatic and hearing grossly normal bilaterally HEAD & SCALP: normocephalic and atraumatic Resp: COMMON NORMALS: normal respiratory effort, No retractions, No use of accessory muscles and clear to auscultation bilaterally AUSCULTATION: clear to auscultation bilaterally Cardio: COMMON NORMALS: regular rate, regular rhythm and No murmurs present (Cardio) RATE: regular rate RHYTHM: regular rhythm GI: COMMON NORMALS: Soft to palpation and No hepatosplenomegaly present AUSCULTATION: Yes normoactive bowel sounds PALPATION: Yes Soft to palpation, No Tenderness to palpation present (GI), No Guarding due to palpation present (GI) and Yes No hepatosplenomegaly present Extremity: COMMON NORMALS: normal to inspection, capillary refill normal, no clubbing, cyanosis or edema, no calf tenderness and no pedal edema Neuro: SENSORIUM/ORIENTATION: Yes oriented to person, Yes oriented to place and Yes oriented to time Skin: OTHER: Abrasions on the knees bilaterally multiple areas of ecchymosis on the arms Course Vital Signs: Vital signs: Vital Signs Temperature 97.9 F 01/21/23 10:19 Pulse Rate 45 L 01/21/23 11:33 Respiratory Rate 18 01/21/23 11:33 Blood Pressure 161/76 01/21/23 11:33 Pulse Oximetry 98 01/21/23 11:33 Oxygen Delivery Me thod Room Air 01/21/23 11:33 MDM - Fall Medical Decision Making Labs and imaging reviewed nothing acute. Recommended the patient needs to consider different living setting and not think he is really safe where he is at now he is confident that he can continue where he is at with the assistance he has does not wish to pursue other options. He wishes to go home. I encouraged him to reconsider he does not wish to go to the retirement and wants to be discharged home return if his changes. Medical Records I reviewed the patient's medical records. Lab Data I reviewed the patient's lab results. 01/21/23 11:02 01/21/23 11:02 Laboratory Results WBC 11.22 10^3/uL (3.29-11.43) 01/21/23 11:02 RBC 3.77 10^6/uL (3.85-5.65) L 01/21/23 11:02 Hgb 11.20 g/dL (11.27-16.99) L 01/21/23 11:02 Hct 32.1 % (37-53) L 01/21/23 11:02 MCV 85.1 fl (82-101) 01/21/23 11:02 MCH 29.7 pg (27-33) 01/21/23 11:02 MCHC 34.9 g/dL (30-55) 01/21/23 11:02 RDW 12.9 % (12.1-15.1) 01/21/23 11:02 Plt Count 226 10^3/cmm (157-399) 01/21/23 11:02 MPV 10.4 fL (7.4-10.4) 01/21/23 11:02 Neut % (Auto) 88.8 % 01/21/23 11:02 Lymph % (Auto) 3.1 % 01/21/23 11:02 [place] % (Auto) 7.7 % 01/21/23 11:02 Eos % (Auto) 0.0 % 01/21/23 11:02 Baso % (Auto) 0.2 % 01/21/23 11:02 Neut # (Auto) 9.97 10^3/uL (1.8-7.7) H 01/21/23 11:02 Lymph # (Auto) 0.4 10^3/uL (0.8-4.8) L 01/21/23 11:02 [place] # (Auto) 0.9 10^3/uL (0.2-0.9) 01/21/23 11:02 Eos # (Auto) 0.0 10^3/uL (0.0-0.8) 01/21/23 11:02 Baso # (Auto) 0.0 10^3/uL (0.0-0.1) 01/21/23 11:02 Nucleated RBC % (auto) 0 % 01/21/23 11:02 Nucleated RBCs # 0.0 /100WBC 01/21/23 11:02 Sodium 135 mmol/L (136-145) L 01/21/23 11:02 Potassium 3.7 mmol/L (3.5-5.1) 01/21/23 11:02 Chloride 100 mmol/L (98-107) 01/21/23 11:02 Carbon Dioxide 23 mmol/L (22-29) 01/21/23 11:02 Anion Gap 15.7 (5-19) 01/21/23 11:02 BUN 20 mg/dL (8-23) 01/21/23 11:02 Creatinine 0.8 mg/dL (0.7-1.2) 01/21/23 11:02 GFR Calculation Not Reportable 01/21/23 11:02 Glucose 154 mg/dL (65-115) H 01/21/23 11:02 Calculated Osmolality 286 mOsm/kg (285-295) 01/21/23 11:02 Calcium 9.7 mg/dL (8.5-10.5) 01/21/23 11:02 Total Bilirubin 0.9 mg/dL (0.15-1.2) 01/21/23 11:02 AST 236 U/L (0-40) H 01/21/23 11:02 ALT 79 U/L (0-41) H 01/21/23 11:02 Alkaline Phosphatase 83 U/L (40-130) 01/21/23 11:02 Total Protein 6.8 g/dL (6.6-8.7) 01/21/23 11:02 Albumin 3.6 g/dL (3.5-5.2) 01/21/23 11:02 Globulin 3.2 g/dL (1.3-4.6) 01/21/23 11:02 Urine Color Brown (Yellow) A 01/21/23 13:33 Urine Appearance Cloudy (CLEAR) A 01/21/23 13:33 Urine pH 5 (5-7) 01/21/23 13:33 Ur Specific [place] 1.015 (1.005-1.030) 01/21/23 13:33 Urine Protein 1+ (Negative) H 01/21/23 13:33 Urine Glucose (UA) Norm (Normal) 01/21/23 13:33 Urine Ketones Negative (Negative) 01/21/23 13:33 Urine Blood 3+ (Negative) H 01/21/23 13:33 Urine Nitrate Negative (Negative) 01/21/23 13:33 Urine Bilirubin Neg (Negative) 01/21/23 13:33 Urine Urobilinogen Norm mg/dL (Negative) 01/21/23 13:33 Ur Leukocyte Esterase Negative (Negative) 01/21/23 13:33 Urine RBC 0-4 /hpf (0-2) H 01/21/23 13:33 Urine WBC 0-4 /hpf (0-5) H 01/21/23 13:33 Ur Squamous Epith Cells 0-4 /hpf (0-5) H 01/21/23 13:33 Amorphous Sediment 3+ /hpf 01/21/23 13:33 Urine Bacteria None /hpf (NONE) 01/21/23 13:33 Discharge Plan Discharge Patient Disposition: Home Clinical Impression: Abrasion, Accidental fall from bed, Anemia Condition: Stable Prescriptions: No Action ferrous sulfate 325 mg (65 mg iron) tablet 325 mg PO BID@0800,1999 [id number] oil-vit D3 300-1,000-1,000 mg-mg-unit capsule 1 cap PO DAILY@0800 magnesium 200 mg tablet 400 mg PO DAILY@0800 saw palmetto 500 mg capsule 500 mg PO BID@0800,1999 selenium 100 mcg tablet 100 mcg PO DAILY@0800 glucosamine HCl 750 mg tablet 1,500 mg PO DAILY@0800 albuterol sulfate 90 mcg/actuation HFA aerosol inhaler 2 puff inhalation Q6H PRN (Reason: shortness of breath or wheezing) Qty: 8.5 3RF artificial saliva (yerbas-lyt) Aerosol,[place] 1 spray mucous membrane Q4H PRN (Reason: dry mouth) Qty: 59 3RF Rx Instructions: administer while awake (DME) Custom inserts or similar See Rx Instructions .Route .MEDSUPPLY Qty: 1 0RF Rx Instructions: to folic acid 1 mg tablet 1 mg PO DAILY@0800 Qty: 90 1RF sulfasalazine 500 mg tablet 0.5 g PO BID@0800,1999 Qty: 180 1RF Rx Instructions: give with food (meal/snack) hydroxychloroquine 200 mg tablet 200 mg PO BID Qty: 180 2RF Multivitamin 50 Plus Tablet 1 tab PO DAILY@0800 Discharge Orders: Discharge ED (Routine); Ordered 01/21/23 Ordered By: Jama Clifford Referrals: Barrie Bhatt DO [Primary Care Provider] - Discharge Diet: Usual diet Discharge Activity: Increase activity as tolerated Patient Instructions: Opioid Safety, Pain Management Coding Level of Care Code ED Vibration Analyst for Chadwick Velasquez
[2023-01-21 11:20] LABS: Basophils % 0.2 %; Hematocrit 32.1 % (37-53); Lymphocytes # 0.4 10^3/uL (0.8-4.8); Lymphocytes % 3.1 %; Mean Corpuscular HGB Conc 34.9 g/dL (30-55); Mean Corpuscular Hemoglobin 29.7 pg (27-33); Mean Corpuscular Volume 85.1 fl (82-101); Mean Platelet Volume 10.4 fL (7.4-10.4); Monocytes # 0.9 10^3/uL (0.2-0.9); Monocytes % 7.7 %; Neutrophils # 9.97 10^3/uL (1.8-7.7); Neutrophils % 88.8 %; Nucleated Red Blood Cells % 0 %; Platelet Count 226 10^3/cmm (157-399); Red Blood Count 3.77 10^6/uL (3.85-5.65); Red Cell Distribution Width 12.9 % (12.1-15.1); White Blood Count 11.22 10^3/uL (3.29-11.43)
[2023-01-21 11:33] VITALS: BP 161/76; PULSE 45; RESP 18; O2SAT 98
[2023-01-21 11:43] LABS: Alanine Aminotransferase 79 U/L (0-41); Albumin Level 3.6 g/dL (3.5-5.2); Alkaline Phosphatase 83 U/L (40-130); Anion Gap 15.7 (5-19); Aspartate Amino Transferase 236 U/L (0-40); Blood Urea Nitrogen 20 mg/dL (8-23); Calcium 9.7 mg/dL (8.5-10.5); Carbon Dioxide 23 mmol/L (22-29); Chloride 100 mmol/L (98-107); Globulin 3.2 g/dL (1.3-4.6); Glucose 154 mg/dL (65-115); Osmolality Calculated 286 mOsm/kg (285-295); Potassium 3.7 mmol/L (3.5-5.1); Sodium 135 mmol/L (136-145); Total Bilirubin 0.9 mg/dL (0.15-1.2); Total Protein 6.8 g/dL (6.6-8.7)
[2023-01-21 13:51] LABS: Specific Gravity, Urine 1.015 (1.005-1.030); Urine Appearance Cloudy (CLEAR); Urine Color Brown (Yellow); pH Urine 5 (5-7)
[2023-01-21 13:52] LABS: Add Urine Microscopic? YES; Bilirubin Urine Neg (Negative); Blood Urine 3+ (Negative); Glucose Urine UA Norm (Normal); Ketones Urine Negative (Negative); Leukocyte Esterase Urine Negative (Negative); Nitrate Urine Negative (Negative); Protein Urine 1+ (Negative); Urobilinogen Urine Norm (Negative)
[2023-01-21 13:53] LABS: Add Urine Culture? No; Amorphous Sediment Urine 3+ /hpf; RBC Urine 0-4 /hpf (0-2); Squamous Epithelial Cell Urine 0-4 /hpf (0-5); WBC Urine 0-4 /hpf (0-5)
== END 2023-01-21 13:55 | disposition home or self-care (01) ==
PROVIDERS: Emergency Provider Family Medicine; PCP Internal Medicine
DX: D64.9 Anemia, unspecified (principal); S80.212A Abrasion, left knee, initial encounter; S80.211A Abrasion, right knee, initial encounter; Z87.891 Personal history of nicotine dependence; Z85.71 Personal history of Hodgkin lymphoma; W06.XXXA Fall from bed, initial encounter
CPT/HCPCS: 36415; 73060; 73562; 80053; 81001; 85025; 99284

== ENCOUNTER 2023-01-22 08:31 | Inpatient (IN) | payer MEDICARE, SELFPAY ==
[2023-01-22] VITALS (8 sets, daily range): BP systolic 110–126; BP diastolic 68–77; PULSE 73–88; RESP 15–20; TEMP 36.4–36.8; O2SAT 96–100
--- NOTE | 2023-01-22 09:00 | XRR_ITS ---
PROCEDURE INFORMATION: Exam: XR Chest Exam date and time: 01/22/2023 9:19 AM Age: 77 years old Clinical indication: Dyspnea and other: Weakness; Additional info: Dyspnea/cough TECHNIQUE: Imaging protocol: Radiologic exam of the chest. Views: 1 view. COMPARISON: CT chest abdpel w/*[id number] 09/16/2022 9:16 AM FINDINGS: Tubes, catheters and devices: Surgical clips overlie the upper lung convexities in the left root of neck. Lungs: There is an unchanged 4.7 x 2.0 cm pleural-based mass along the right convexity. There is atelectasis and increased interstitial markings along the left diaphragm. Pleural spaces: There is blunting of the right costophrenic sulcus which may represent a small effusion.. No pneumothorax. Heart/Mediastinum: Unremarkable. No cardiomegaly. Bones/joints: The patient is post left shoulder arthroplasty. The bones are osteopenic. XR/XR chest 1V portable [id number] IMPRESSION: Unchanged pleural-based opacity along the right convexity. Opacity at the left base. Query small right pleural effusion.
--- NOTE | 2023-01-22 09:04 | ED_ITS ---
HPI - Weakness General: Chief complaint: Weakness Stated complaint: WEAKNESS Time Seen by Provider: 01/22/23 08:39 Source: patient and other (Friend/neighbor/caregiver) Mode of arrival: EMS History of Present Illness: 77-year-old male who presents emergency room unable to care for himself patient was here yesterday had fallen out of bed he had no definable injury at the time we recommended consideration of senior living placement he had been previously in the senior living he states he has been getting help from neighbors but does not have any family in the area. He refused and ultimately was discharged home. Yesterday only seen him and is able to manage his cell phone without any difficulty this morning he woke up and stated he could not use his hands for a walker or his phone. Neighbor who essentially function is a caregiver came to see him he was unable to use a walker or a phone and called 911. 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 Caregiver says he fell out of bed at least 1 or 2 more times since he was discharged. He is otherwise awake and alert at his baseline he was seen yesterday. He is now stating he wants to go to the senior living. When he was seen yesterday his transaminases were elevated but looking back to result labs have been elevating over a period of time he had no abdominal pain further work-up was left in the outpatient venue. Patient has a known history of alcohol abuse. MD Complaint: generalized weakness Onset (ago): week(s) Duration: constant Location: generalized Relieving factors: none Exacerbating factors: none Associated symptoms: Reports easy bruising; Denies chest pain, chills, confusion, melena, decreased appetite, diaphoresis, dysuria, fever(s), headache(s), myalgias, nausea, rash, short of breath, syncope or vomiting Review of Systems Const: Reports: fatigue and malaise; Denies: fever(s), chills or diaphoresis ENMT: Denies: throat pain Card: Denies: chest pain, palpitations, irregular heart rhythm or syncope Resp: Denies: dyspnea, productive cough or non-productive cough GI: Denies: abdominal pain, nausea, vomiting or melena : Reports: flank pain; Denies: dysuria, urinary frequency or urinary urgency Musc: Denies: neck pain or back pain Skin/Breast: Denies: rash or pruritus Neuro: Denies: headache(s) or confusion [place]/Lymph: Reports: easy bruising PFSH ED PFSH: Medical History Alcohol abuse Ex-smoker for more than 1 year History of exposure to asbestos History of Hodgkin's lymphoma diagnosed in 2013, treated with ABVD with good result History of PFTs Immunosuppression Iron deficiency anemia Marginal zone lymphoma identified in 2020 and 2021, observant management Neuropathy Osteoarthritis Peripheral neuropathy Primary Sjogren's syndrome Right knee meniscal tear Seropositive rheumatoid arthritis of multiple joints Thoracic outlet syndrome Weight loss Surgical History History of arthroplasty of left shoulder History of arthroplasty of right hip History of revision of total replacement of right hip joint Status post colonoscopy Status post surgery Bilateral chest surgery for thoracic outlet syndrome Family History Other Cancer Dementia Diabetes Denies family history of CAD (coronary artery disease) Clotting disorder Hyperlipidemia Psychiatric illness Chronic kidney disease (CKD) Suicide Anesthesia complication Bleeding disorder Lung disease Hypertension Stroke Social History Smoking and tobacco status: former smoker Quit status (tobacco): has quit using tobacco Year quit tobacco: 2010 [id number] Second hand smoke exposure: No Smoking risk assessment/counseling performed?: Yes Alcohol intake: current Alcohol intake frequency: 0-2 Drinks per Day Alcohol type: beer Substance/Drug Use: never Caregiver/support person: No Lives independently: Yes Household members: none Housing: House Marital status: / service: No Current occupational status: retired Pets and animals: Yes Do you think of yourself as: Straight/Heterosexual Current gender identity: Male Physical Exam Const: GENERAL APPEARANCE: cooperative ORIENTATION/CONSCIOUSNESS: Yes awake HENMT: COMMON NORMALS: normocephalic, atraumatic and hearing grossly normal b ilaterally HEAD & SCALP: normocephalic and atraumatic Resp: COMMON NORMALS: normal respiratory effort, No retractions, No use of accessory muscles and clear to auscultation bilaterally AUSCULTATION: clear to auscultation bilaterally Cardio: COMMON NORMALS: regular rate, regular rhythm and No murmurs present (Cardio) RATE: regular rate RHYTHM: regular rhythm GI: COMMON NORMALS: Soft to palpation and No hepatosplenomegaly present AUSCULTATION: Yes normoactive bowel sounds PALPATION: Yes Soft to palpation, No Tenderness to palpation present (GI), No Guarding due to palpation present (GI) and Yes No hepatosplenomegaly present Extremity: COMMON NORMALS: normal to inspection, capillary refill normal, no clubbing, cyanosis or edema, no calf tenderness and no pedal edema Neuro: OTHER: Bilateral weakness and some mild ataxia in the upper extremities. No facial asymmetry speech unchanged from previous day no visual changes Skin: COMMON NORMALS: no rashes or lesions noted GENERAL SKIN EXAM: no rashes or lesions noted Course Vital Signs: Vital signs: Vital Signs Temperature 97.8 F 01/22/23 13:46 Pulse Rate 88 01/22/23 13:46 Respiratory Rate 16 01/22/23 13:46 Blood Pressure 126/73 01/22/23 13:46 Pulse Oximetry 96 01/22/23 13:46 Oxygen Delivery Me thod Nasal Cannula 01/22/23 10:00 Oxygen Flow Rate 2 01/22/23 10:00 MDM - Weakness Medical Decision Making Patient generally weak elevated transaminases he is unable to walk or stand. Skin the patient's neck no cervical fracture. Discussed with hospitalist will admit Medical Records I reviewed the patient's medical records. Lab Data I reviewed the patient's lab results. 01/22/23 09:16 01/22/23 09:16 Radiology Impressions Chest X-Ray 01/22/23 09:00 IMPRESSION: Unchanged pleural-based opacity along the right convexity. Opacity at the left base. Query small right pleural effusion. Head CT 01/22/23 09:08 IMPRESSION: No acute cardiopulmonary disease. Abdomen/Pelvis CT 01/22/23 10:07 IMPRESSION: Limited noncontrast CT examination. Query duodenitis. Please correlate clinically endoscopically. Constipation. 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 Finding should be followed with serial CT of the thorax in 6-12 months. Unchanged mild retroperitoneal lymphadenopathy, not significantly changed from the prior examination. Query particle disease associated with the right hip arthroplasty. Cervical Spine CT 01/22/23 12:05 IMPRESSION: 1. No acute fracture. 2. Right apical pulmonary nodule or scar is not significantly changed since 06/16/2020. No further follow-up imaging is necessary based on Fleischner society criteria for incidental pulmonary nodules. Laboratory Results WBC 10.47 10^3/uL (3.29-11.43) 01/22/23 09:16 RBC 3.70 10^6/uL (3.85-5.65) L 01/22/23 09:16 Hgb 11.00 g/dL (11.27-16.99) L 01/22/23 09:16 Hct 32.0 % (37-53) L 01/22/23 09:16 MCV 86.5 fl (82-101) 01/22/23 09:16 MCH 29.7 pg (27-33) 01/22/23 09:16 MCHC 34.4 g/dL (30-55) 01/22/23 09:16 RDW 13.2 % (12.1-15.1) 01/22/23 09:16 Plt Count 232 10^3/cmm (157-399) 01/22/23 09:16 MPV 9.9 fL (7.4-10.4) 01/22/23 09:16 Neut % (Auto) 85.8 % 01/22/23 09:16 Lymph % (Auto) 6.2 % 01/22/23 09:16 [place] % (Auto) 7.4 % 01/22/23 09:16 Eos % (Auto) 0.1 % 01/22/23 09:16 Baso % (Auto) 0.3 % 01/22/23 09:16 Neut # (Auto) 8.99 10^3/uL (1.8-7.7) H 01/22/23 09:16 Lymph # (Auto) 0.7 10^3/uL (0.8-4.8) L 01/22/23 09:16 [place] # (Auto) 0.8 10^3/uL (0.2-0.9) 01/22/23 09:16 Eos # (Auto) 0.0 10^3/uL (0.0-0.8) 01/22/23 09:16 Baso # (Auto) 0.0 10^3/uL (0.0-0.1) 01/22/23 09:16 Nucleated RBC % (auto) 0 % 01/22/23 09:16 Nucleated RBCs # 0.0 /100WBC 01/22/23 09:16 Sodium 136 mmol/L (136-145) 01/22/23 09:16 Potassium 3.8 mmol/L (3.5-5.1) 01/22/23 09:16 Chloride 100 mmol/L (98-107) 01/22/23 09:16 Carbon Dioxide 22 mmol/L (22-29) 01/22/23 09:16 Anion Gap 17.8 (5-19) 01/22/23 09:16 BUN 31 mg/dL (8-23) H 01/22/23 09:16 Creatinine 1.0 mg/dL (0.7-1.2) 01/22/23 09:16 GFR Calculation Not Reportable 01/22/23 09:16 Glucose 108 mg/dL (65-115) 01/22/23 09:16 Calculated Osmolality 289 mOsm/kg (285-295) 01/22/23 09:16 Calcium 9.5 mg/dL (8.5-10.5) 01/22/23 09:16 Total Bilirubin 0.8 mg/dL (0.15-1.2) 01/22/23 09:16 AST 259 U/L (0-40) H 01/22/23 09:16 ALT 122 U/L (0-41) H 01/22/23 09:16 Alkaline Phosphatase 77 U/L (40-130) 01/22/23 09:16 Total Protein 6.7 g/dL (6.6-8.7) 01/22/23 09:16 Albumin 3.0 g/dL (3.5-5.2) L 01/22/23 09:16 Globulin 3.7 g/dL (1.3-4.6) 01/22/23 09:16 Lipase 97 U/L (13-60) H 01/22/23 09:16 Urine Color Yellow (Yellow) 01/22/23 09:52 Urine Appearance Hazy (CLEAR) A 01/22/23 09:52 Urine pH 5 (5-7) 01/22/23 09:52 Ur Specific [place] 1.015 (1.005-1.030) 01/22/23 09:52 Urine Protein Trace (Negative) 01/22/23 09:52 Urine Glucose (UA) Norm (Normal) 01/22/23 09:52 Urine Ketones 1+ (Negative) H 01/22/23 09:52 Urine Blood 3+ (Negative) H 01/22/23 09:52 Urine Nitrate Negative (Negative) 01/22/23 09:52 Urine Bilirubin Neg (Negative) 01/22/23 09:52 Urine Urobilinogen Norm mg/dL (Negative) 01/22/23 09:52 Ur Leukocyte Esterase Negative (Negative) 01/22/23 09:52 Urine RBC 5-10 /hpf (0-2) H 01/22/23 09:52 Urine WBC 0-4 /hpf (0-5) H 01/22/23 09:52 Ur Squamous Epith Cells Rare /hpf (0-5) 01/22/23 09:52 Amorphous Sediment Not Reportable 01/22/23 09:52 Urine Bacteria 2+ /hpf (NONE) H 01/22/23 09:52 Hyaline Casts 5-10 /lpf H 01/22/23 09:52 Fine Granular Casts 0-4 /lpf H 01/22/23 09:52 Coarse Granular Casts 0-4 /lpf H 01/22/23 09:52 Urine Mucus 1+ /hpf 01/22/23 09:52 Ethyl Alcohol < 10 mg/dL (0-10) 01/22/23 09:16 Hepatitis A IgM Ab Non-reactive (Nonreactive) 01/22/23 09:16 Hep Bs Antigen Non-reactive (Nonreactive) 01/22/23 09:16 Hep B Core IgM Ab Non-reactive (Nonreactive) 01/22/23 09:16 Hepatitis C Antibody Non-reactive (Nonreactive) 01/22/23 09:16 Discharge Plan Discharge Patient Disposition: Admitted As Inpatient Admit Provider: Paty Corado Clinical Impression: Weakness, Anemia Condition: Stable Coding Level of Care Code ED Cigar Head Piercer for Chadwick Velasquez
--- NOTE | 2023-01-22 09:08 | CTR_ITS ---
PROCEDURE INFORMATION: Exam: CT Head Without Contrast Exam date and time: 01/22/2023 9:27 AM Age: 77 years old Clinical indication: Injury or trauma; Fall; Blunt trauma (contusions or hematomas); Consciousness not specified TECHNIQUE: Imaging protocol: Computed tomography of the head without contrast. Radiation optimization: All CT scans at this facility use at least one of these dose optimization techniques: automated exposure control; mA and/or kV adjustment per patient size (includes targeted exams where dose is matched to clinical indication); or iterative reconstruction. REPORTING DATA: Count of CT and Cardiac NM exams in prior 12 months: This patient has received 3 known CTs and 0 known cardiac nuclear medicine studies in the 12 months prior to the current study. COMPARISON: CT head wo con* [id number] 08/19/2022 3:26 PM RADIATION DOSE METRICS: Total DLP (mGy-cm): 1095.98 FINDINGS: Brain: There is age-appropriate frontotemporal volume loss. There is no mass effect, midline shift, extra-axial fluid collection or acute lobar infarct. Cerebral ventricles: No ventriculomegaly. Paranasal sinuses: Thick-walled diminutive maxillary antra suggests chronic disease. Mastoid air cells: Visualized mastoid air cells are well aerated. Orbital cavities: The patient is post bilateral cataract surgery. Bones/joints: The bones are generally osteopenic. Soft tissues: Unremarkable. CT/CT head wo con* [id number] IMPRESSION: No acute cardiopulmonary disease.
[2023-01-22 09:25] LABS: Basophils % 0.3 %; Eosinophils % 0.1 %; Lymphocytes # 0.7 10^3/uL (0.8-4.8); Lymphocytes % 6.2 %; Mean Corpuscular HGB Conc 34.4 g/dL (30-55); Mean Corpuscular Hemoglobin 29.7 pg (27-33); Mean Corpuscular Volume 86.5 fl (82-101); Mean Platelet Volume 9.9 fL (7.4-10.4); Monocytes # 0.8 10^3/uL (0.2-0.9); Monocytes % 7.4 %; Neutrophils # 8.99 10^3/uL (1.8-7.7); Neutrophils % 85.8 %; Nucleated Red Blood Cells % 0 %; Platelet Count 232 10^3/cmm (157-399); Red Cell Distribution Width 13.2 % (12.1-15.1); White Blood Count 10.47 10^3/uL (3.29-11.43)
[2023-01-22 09:53] LABS: Alanine Aminotransferase 122 U/L (0-41); Alkaline Phosphatase 77 U/L (40-130); Anion Gap 17.8 (5-19); Aspartate Amino Transferase 259 U/L (0-40); Blood Urea Nitrogen 31 mg/dL (8-23); Calcium 9.5 mg/dL (8.5-10.5); Carbon Dioxide 22 mmol/L (22-29); Chloride 100 mmol/L (98-107); Globulin 3.7 g/dL (1.3-4.6); Glucose 108 mg/dL (65-115); Osmolality Calculated 289 mOsm/kg (285-295); Potassium 3.8 mmol/L (3.5-5.1); Sodium 136 mmol/L (136-145); Total Bilirubin 0.8 mg/dL (0.15-1.2); Total Protein 6.7 g/dL (6.6-8.7)
--- NOTE | 2023-01-22 10:07 | CTR_ITS ---
PROCEDURE INFORMATION: Exam: CT Abdomen And Pelvis Without Contrast Exam date and time: 01/22/2023 10:52 AM Age: 77 years old Clinical indication: Abdominal tenderness and nausea; Prior surgery; Surgery date: 6+ months; Surgery type: Hip; Additional info: Abdominal pain TECHNIQUE: Imaging protocol: Computed tomography of the abdomen and pelvis without contrast. Radiation optimization: All CT scans at this facility use at least one of these dose optimization techniques: automated exposure control; mA and/or kV adjustment per patient size (includes targeted exams where dose is matched to clinical indication); or iterative reconstruction. REPORTING DATA: Count of CT and Cardiac NM exams in prior 12 months: This patient has received 3 known CTs and 0 known cardiac nuclear medicine studies in the 12 months prior to the current study. COMPARISON: CT chest abdpel w/*[id number] 09/16/2022 9:16 AM RADIATION DOSE METRICS: Total DLP (mGy-cm): 540.68 FINDINGS: Lungs: There is cystic change and streaky atelectasis noted at the lung bases in the lower lobes. Liver: Normal. No mass. Gallbladder and bile ducts: The gallbladder is partially contracted. Pancreas: Normal. No ductal dilation. Spleen: Normal. No splenomegaly. Adrenal glands: Normal. No mass. Kidneys and ureters: The kidneys are normal in overall size and general contour without hydronephrosis or nephrolithiasis. Stomach and bowel: There is moderate stool and gas noted in the proximal 3/4 of the colon. There is mild inflammatory change surrounding the 2nd portion of the duodenum. Evaluation is somewhat limited on this noncontrast CT examination. Please correlate clinically, endoscopically. Appendix: No evidence of appendicitis. Intraperitoneal space: Unremarkable. No free air. No significant fluid collection. Vasculature: The aorta is aneurysmal at the level of the hiatus measuring 3.6 x 3.5 cm in maximum short axis dimension tapering to 3.4 x 3.4 cm at the level of the celiac origin, 25 x 23 mm at the level of the superior mesenteric artery origin. Lymph nodes: There is shotty retroperitoneal lymphadenopathy measuring up to 12 mm left periaortic unchanged from the prior study. Urinary bladder: The urinary bladder is contracted. Reproductive: Unremarkable as visualized. Bones/joints: The patient is post right hip arthroplasty with notable lucency surrounding the proximal femoral stem component and complicated calcific low-density medial to the acetabulum and iliac bone raising suspicion for particle disease. The bones are osteopenic with degenerative change. Soft tissues: Unremarkable. CT/CT abdomen pelvis wo con [id number] IMPRESSION: Limited noncontrast CT examination. Query duodenitis. Please correlate clinically endoscopically. Constipation. 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 Finding should be followed with serial CT of the thorax in 6-12 months. Unchanged mild retroperitoneal lymphadenopathy, not significantly changed from the prior examination. Query particle disease associated with the right hip arthroplasty.
[2023-01-22 10:14] LABS: Add Urine Microscopic? YES; Bilirubin Urine Neg (Negative); Blood Urine 3+ (Negative); Glucose Urine UA Norm (Normal); Ketones Urine 1+ (Negative); Leukocyte Esterase Urine Negative (Negative); Nitrate Urine Negative (Negative); Protein Urine Trace (Negative); Specific Gravity, Urine 1.015 (1.005-1.030); Urine Appearance Hazy (CLEAR); Urine Color Yellow (Yellow); Urobilinogen Urine Norm (Negative); pH Urine 5 (5-7)
[2023-01-22 10:17] LABS: Bacteria Urine 2+ /hpf; Mucus Urine 1+ /hpf; Squamous Epithelial Cell Urine RARE /hpf (0-5); WBC Urine 0-4 /hpf (0-5)
[2023-01-22 10:18] LABS: Coarse Granular Casts Urine 0-4 /lpf; Fine Granular Casts Urine 0-4 /lpf
[2023-01-22 10:20] LABS: Add Urine Culture? Yes
[2023-01-22 11:08] LABS: Hepatitis A Antibody IgM Non-Reactive (Nonreactive); Hepatitis B Core IgM Non-Reactive (Nonreactive); Hepatitis B Surface Antigen Non-Reactive (Nonreactive); Hepatitis C Virus Antibody Non-Reactive (Nonreactive)
[2023-01-22 11:25] LABS: Lipase 97 U/L (13-60)
[2023-01-22 11:32] LABS: Alcohol Level < 10 mg/dL (0-10)
--- NOTE | 2023-01-22 12:05 | CTR_ITS ---
PROCEDURE INFORMATION: Exam: CT Cervical Spine Without Contrast Exam date and time: 01/22/2023 12:38 PM Age: 77 years old Clinical indication: Injury or trauma; Fall; Blunt trauma TECHNIQUE: Imaging protocol: Computed tomography of the cervical spine without contrast. Radiation optimization: All CT scans at this facility use at least one of these dose optimization techniques: automated exposure control; mA and/or kV adjustment per patient size (includes targeted exams where dose is matched to clinical indication); or iterative reconstruction. REPORTING DATA: Count of CT and Cardiac NM exams in prior 12 months: This patient has received 3 known CTs and 0 known cardiac nuclear medicine studies in the 12 months prior to the current study. COMPARISON: 1. CT cervical spin wo con* [id number] 08/28/2016 2:[address] neck wo con [id number] 06/16/2020 8:37 PM RADIATION DOSE METRICS: Total DLP (mGy-cm): 182.17 FINDINGS: Bones/joints: Mild degenerative cervical kyphosis. No significant spondylolisthesis. Mild loss of vertebral body height at C5, C6, C7 and T1 with associated endplate sclerosis and irregularity with innumerable subchondral cysts, similar to the findings on 08/28/2016. There is moderate multilevel facet spondylosis. Bilateral 1st rib resection. Skull base is unremarkable. No acute fracture. There is mild multilevel spinal canal stenosis. Lungs: 7 mm noncalcified right apical pulmonary nodule or scar. Soft tissues: Unremarkable. CT/CT cervical spin wo con* [id number] IMPRESSION: 1. No acute fracture. 2. Right apical pulmonary nodule or scar is not significantly changed since 06/16/2020. No further follow-up imaging is necessary based on Fleischner society criteria for incidental pulmonary nodules.
--- NOTE | 2023-01-22 16:05 | PC.NURSE ---
Pt is weak, ER stated that the neighbor hotlined pt previos.
[2023-01-22] MEDS: ondansetron 2 mg/ML SDV 2 mL 4 MG IVP ×2 (17:24→23:28)
--- NOTE | 2023-01-22 18:24 | PM.HP ---
Providers/Chief Complaint Admitting Physician: Paty Corado MD Primary Care Provider: Barrie Bhatt DO Chief Complaint: WEAKNESS History of Present Illness Peng Cooper is a 77 year old male with PMH Hodgkin's lymphoma, currently on observation, last known to have stable pleural-based right upper thorax lesion size 4.4 x 1.4 cm ,no new lymphadenopathy or organomegaly or B symptoms. He also has a h/o rheumatoid arthritis, chronic alcoholism. He presnted to the hospital c/o generalized malaise, fatigue and recurrent falls at home. He usually is able to ambulate short distances in his house and reports making meals by himself. he states he has been increasingly fatigued and has been losing weight recently - he estimates about a 30 pound weight loss. He presented to the ER yesterday and was recommended to stay in the hospital to allow disposition planning as it did not appear he could care for himself and has no immediate family around to help him. Howevre he declined. Returned today when he woke up and stated he could not use his hands for a walker or his phone.? His neighbor reported that he has had 2 additional falls since returning home. Review of Systems General: Reports: 10 or more systems reviewed and unremarkable except in HPI and below Const: Denies: fever(s), chills or body aches Eyes: Denies: change in vision, blurry vision or photophobia ENMT: Reports: hoarseness; Denies: throat pain, enlarged tonsils, odynophagia or nasal congestion Card: Denies: chest pain, palpitations, irregular heart rhythm, edema, swelling of feet/ankles, lightheadedness, pre-syncope, dyspnea on exertion or orthopnea Resp: Denies: dyspnea, productive cough, non-productive cough, wheezing, stridor, pain on inspiration, change in phlegm color, hemoptysis or chest congestion GI: Denies: abdominal pain, nausea, vomiting, hematemesis, coffee ground emesis, dysphagia, heartburn, diarrhea, constipation, GI cramping, change in stool character, hematochezia or melena : Denies: flank pain, dysuria, urinary frequency, urinary urgency, urinary hesitancy or hematuria Musc: Denies: neck pain, back pain, extremity pain, joint swelling, joint warmth or deformity Neuro: Denies: headache(s), numbness in extremities, weakness in extremities, sensory changes, difficulty walking, frequent falls, dizziness, vertigo, behavioral changes, Slurred speech present or seizure-like activity Psych: Denies: anxiety, depression, suicidal ideation or homicidal ideation Endo: Denies: polyuria, polydipsia, tired all the time, cold intolerance or hot flashes Bryant/Lymph: Denies: easy bruising or easy bleeding Medications/Allergies Home Medications Medication Instructions Recorded Confirmed Last Taken Type ferrous sulfate 325 mg (65 mg 325 mg PO BID@08,199906/19/19 01/22/23 01/19/23 History iron) tablet magnesium 200 mg tablet 400 mg PO DAILY@79906/19/19 01/22/23 01/19/23 History uc-5-gox-epa-fish oil-vit D3 300 1 cap PO DAILY@79906/19/19 01/22/23 01/19/23 History mg-1,000 mg-1,000 unit capsule saw palmetto 500 mg capsule 500 mg PO BID@06/19/19 01/22/23 01/19/23 History selenium 100 mcg tablet 100 mcg PO DAILY@0800 06/19/19 01/22/23 01/19/23 History jtamaowiheid-hurhiwnp-joprjj 1 tab PO DAILY@0806/16/20 01/22/23 01/19/23 History tablet (Multivitamin 50 Plus tablet) folic acid 1 mg tablet 1 mg PO DAILY@0800 #90 tabs 09/28/21 01/22/23 01/19/23 Rx artificial saliva (yerba savannah and 1 spray mucous membrane Q4H PRN 01/04/22 01/22/23 01/19/23 Rx lytes) spray dry mouth #59 mL glucosamine HCl 750 mg tablet 1,500 mg PO DAILY@0800 01/04/22 01/22/23 01/19/23 History Custom inserts or similar #1 ea 06/21/22 01/22/23 Unknown Rx hydroxychloroquine 200 mg tablet 200 mg PO BID #180 tabs 10/07/22 01/22/23 01/19/23 Rx sulfasalazine 500 mg tablet 0.5 g PO BID@ #180 tabs 10/07/22 01/22/23 01/19/23 Rx Biotene Dry Mouth Oral Rinse 15 ml PO 5XD PRN Dry Mouth 01/23/23 01/23/23 Unknown History Dry Eye Relief 1 - 2 drp eye-both PRN PRN Dry Eyes 01/23/23 01/23/23 Unknown History Metamucil 3.4 g PO 3XD PRN Constipation 01/23/23 01/23/23 Unknown History Allergies Allergy/AdvReac Type Severity Reaction Status Date / Time No Known Allergies Allergy Verified 01/22/23 08:43 PFSH Acute PFSH: Medical History Alcohol abuse Ex-smoker for more than 1 year History of exposure to asbestos History of Hodgkin's lymphoma diagnosed in 2013, treated with ABVD with good result History of PFTs Immunosuppression Iron deficiency anemia Marginal zone lymphoma identified in 2020 and 2021, observant management Neuropathy Osteoarthritis Peripheral neuropathy Primary Sjogren's syndrome Right knee meniscal tear Seropositive rheumatoid arthritis of multiple joints Thoracic outlet syndrome Weight loss Surgical History History of arthroplasty of left shoulder History of arthroplasty of right hip History of revision of total replacement of right hip joint Status post colonoscopy Status post surgery Bilateral chest surgery for thoracic outlet syndrome Family History Other Cancer Dementia Diabetes Denies family history of CAD (coronary artery disease) Clotting disorder Hyperlipidemia Psychiatric illness Chronic kidney disease (CKD) Suicide Anesthesia complication Bleeding disorder Lung disease Hypertension Stroke Social History Smoking and tobacco status: former smoker Quit status (tobacco): has quit using tobacco Year quit tobacco: 2010 [id number] Second hand smoke exposure: No Smoking risk assessment/counseling performed?: Yes Alcohol intake: current Alcohol intake frequency: 0-2 Drinks per Day Alcohol type: beer Substance/Drug Use: never Caregiver/support person: No Lives independently: Yes Household members: none Housing: House Marital status: / service: No Current occupational status: retired Pets and animals: Yes Do you think of yourself as: Straight/Heterosexual Current gender identity: Male Vitals/I&O/Wt Last Vital Signs Temp 97.5 F L 01/22/23 16:19 Pulse 78 01/22/23 16:19 Resp 20 H 01/22/23 16:19 BP 110/71 01/22/23 16:19 Pulse Ox 98 01/22/23 16:19 O2 Del Method Nasal Cannula 01/22/23 16:19 O2 Flow Rate 2 01/22/23 10:00 Weight last 48 hrs Weight 54.431 kg Physical Exam Narrative: General: No acute distress, AO x3, appears to be frail and cachexic , though BMI 20 HEENT: PERRLA, pupils bilaterally equal and reactive, pallors not present Chest: Normal vesicular breath sounds, no added sounds, equal good air entry bilaterally CVS: S1-S2 regular, no murmurs, no tachycardia, no gallops, no rubs Abdomen: Soft, nontender, no organomegaly, bowel sounds present Neuro: No focal deficits, no facial deformity, AO x3, power 5/5 in all limbs Data 01/23/23 04:26 01/23/23 04:26 Other Labs: September 2022: CT/CT chest abdpel w/*[id number] IMPRESSION: 1. ? Small left pleural fluid collections with suspected loculations. 2. ? Right pleural based mass lateral right upper lobe series 3, image 28 unchanged from prior exam. 3. ? Numerous mildly prominent mediastinal lymph nodes unchanged. 4. ? There is right apical pleural thickening, likely related to chronic pleural-parenchymal scarring. This finding is stable when compared to the prior exam. 5. ? Honeycombing noted at right lung base unchanged. Increased interstitial opacity and irregular areas of lung consolidation at the left lung base felt to represent combination of chronic lung changes with edema and or pneumonia. 6. ? No pathological adenopathy is detected. 7. ? Bilateral lung nodules some with minimal spiculations unchanged from prior exam. 8. ? No new pathology detected. CT abdomen/pelvis Query duodenitis.? Please correlate clinically endoscopically. ? Constipation.? ? 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 Finding should be followed with serial CT of the thorax in 6-12 months.? ? Unchanged mild retroperitoneal lymphadenopathy, not significantly changed from the prior examination. ? Query particle disease associated with the right hip arthroplasty. CT C spine: CT/CT cervical spin wo con* [id number] IMPRESSION: 1. ? No acute fracture. 2. ? Right apical pulmonary nodule or scar is not significantly changed since 06/16/2020. No further follow-up imaging is necessary based on Fleischner society criteria for incidental pulmonary nodules. CT head: no acute intracranial abnormality A&P Assessment and plan (1) Accidental fall from bed: (2) Weakness: (3) Seropositive rheumatoid arthritis of multiple joints: (4) History of Hodgkin's lymphoma: (5) Iron deficiency anemia: Plan 77 M with h/o Hodgkin's lymphoma, chronic alcoholism, seropositive RA and inflammatory arthritis p/w increasing generalized weakness, failure to thrive over past few months He estimates having lost 30 pounds since last admission Does not report any abnormal bowel or bladder habits , no vomiting or nausea, states appetite at baseline He has been having multiple falls at home, lives by himself , attribute sthese to being weak Labs today with anemia, known to have iron deficiency for which he is on iron supplementation Transminitis, CT abdomen and pelvis without gross abnormalities or lover or biliary tree Check CPK level given c/o muscle weakness and h/o falls Recent CT CAP from 09/[address] c spine from yesterday with partial visualization of lung do not show any progression of his lung lesion. Check TSH PT/OT eval DVT ppx: lovenox Disposio: will need appropriate disposition planning- with recurent falls at home and being unsupervised, he is at risk of injury to self, will need assitsnace with living arrangements Attestations Medical Necessity Statement*: observation admission for now Coding Level of Care Code Acute Code for Chg Fwd Diagnoses Accidental fall from bed W06.XXXA Weakness R53.1 Seropositive rheumatoid arthritis of multiple joints M05.79 History of Hodgkin's lymphoma Z85.71 Iron deficiency anemia D50.9
[2023-01-22] MEDS: enoxaparin 40 mg/0.4 mL Syringe SUBCUT (19:00)
[2023-01-22] MEDS: sodium chloride 0.9% 1,000 ML 75 ML IV (19:01)
[2023-01-22 19:15] LABS: Thyroid Stimulating Hormone 1.65 uIU/mL (0.27-4.20)
[2023-01-22 19:26] LABS: Ammonia 24 umol/L (16-60)
[2023-01-22 19:29] LABS: Creatine Phosphokinase 5687 U/L (39-308)
[2023-01-23 03:48] VITALS: BP 110/62; PULSE 80; RESP 16; TEMP 36.8; O2SAT 99
[2023-01-23 04:48] LABS: Basophils % 0.2 %; Eosinophils % 0.4 %; Hematocrit 29.6 % (37-53); Lymphocytes # 0.8 10^3/uL (0.8-4.8); Lymphocytes % 9.6 %; Mean Corpuscular HGB Conc 34.1 g/dL (30-55); Mean Corpuscular Hemoglobin 30.1 pg (27-33); Mean Corpuscular Volume 88.1 fl (82-101); Mean Platelet Volume 9.9 fL (7.4-10.4); Monocytes # 0.8 10^3/uL (0.2-0.9); Monocytes % 8.8 %; Neutrophils # 6.86 10^3/uL (1.8-7.7); Neutrophils % 80.6 %; Nucleated Red Blood Cells % 0 %; Platelet Count 243 10^3/cmm (157-399); Red Blood Count 3.36 10^6/uL (3.85-5.65); Red Cell Distribution Width 13.3 % (12.1-15.1); White Blood Count 8.51 10^3/uL (3.29-11.43)
[2023-01-23] MEDS: sodium chloride 0.9% 1,000 ML 100 ML IV ×2 (04:56→15:27)
[2023-01-23 05:09] LABS: Alanine Aminotransferase 109 U/L (0-41); Alkaline Phosphatase 74 U/L (40-130); Anion Gap 10.7 (5-19); Aspartate Amino Transferase 143 U/L (0-40); Blood Urea Nitrogen 27 mg/dL (8-23); Calcium 8.9 mg/dL (8.5-10.5); Carbon Dioxide 29 mmol/L (22-29); Chloride 103 mmol/L (98-107); Globulin 2.4 g/dL (1.3-4.6); Glucose 145 mg/dL (65-115); Magnesium 2.4 mg/dL (1.7-2.3); Osmolality Calculated 296 mOsm/kg (285-295); Potassium 3.7 mmol/L (3.5-5.1); Sodium 139 mmol/L (136-145); Total Bilirubin 0.5 mg/dL (0.15-1.2); Total Protein 5.4 g/dL (6.6-8.7)
[2023-01-23 07:16] VITALS: BP 105/51; PULSE 79; RESP 18; TEMP 36.7; O2SAT 98
[2023-01-23 07:29] VITALS: PULSE 75; O2SAT 98
[2023-01-23] MEDS: pantoprazole DR 40 mg Tablet PO (08:03)
[2023-01-23] MEDS: acetaminophen 325 mg Tablet 650 MG PO (10:05)
[2023-01-23] MEDS: efferdent effervescent 1 EACH DENTAL (10:05)
[2023-01-23 11:26] VITALS: BP 135/76; PULSE 70; RESP 19; TEMP 36.8; O2SAT 99
[2023-01-23 16:00] VITALS: BP 131/71; PULSE 69; RESP 17; TEMP 36.4; O2SAT 100
--- NOTE | 2023-01-23 16:00 | PM.PN ---
Subjective Subjective: CK elevated > 5000 , c/p generalized muscle pain, difficukty moving small joints of wendi hand with painful movements. Vitals/I&O/Wt Last Vital Signs Temp 98.3 F 01/23/23 20:00 Pulse 68 01/23/23 20:00 Resp 16 01/23/23 20:00 BP 109/64 01/23/23 20:00 Pulse Ox 100 01/23/23 20:00 O2 Del Method Nasal Cannula 01/23/23 16:00 O2 Flow Rate 2 01/23/23 07:29 01/23/23 01/23/23 01/24/23 14:59 22:59 06:59 Intake Total 720 / 720 1850 / 2570 Output Total 600 / 600 275 / 875 Balance 120 / 120 1575 / 1695 Weight last 48 hrs Weight 54.431 kg Physical Exam Narrative: General: No acute distress, AO x3, appears to be frail and cachexic , though BMI 20 HEENT: PERRLA, pupils bilaterally equal and reactive, pallors not present Chest: Normal vesicular breath sounds, no added sounds, equal good air entry bilaterally CVS: S1-S2 regular, no murmurs, no tachycardia, no gallops, no rubs Abdomen: Soft, nontender, no organomegaly, bowel sounds present Neuro: No focal deficits, no facial deformity, AO x3, power 5/5 in all limbs Data 01/23/23 04:26 01/23/23 04:26 Micro: Microbiology 01/22/23 09:52 Urine Culture - Preliminary Urine,Clean Catch A&P Assessment and plan (1) Accidental fall from bed: (2) Weakness: (3) Seropositive rheumatoid arthritis of multiple joints: (4) History of Hodgkin's lymphoma: (5) Iron deficiency anemia: (6) Rhabdomyolysis: Plan 77 M with h/o Hodgkin's lymphoma, chronic alcoholism, seropositive RA and inflammatory arthritis p/w increasing generalized weakness, failure to thrive over past few months He estimates having lost 30 pounds since last admission Does not report any abnormal bowel or bladder habits , no vomiting or nausea, states appetite at baseline He has been having multiple falls at home, lives by himself , attribute sthese to being weak Evidence of rhabdomyolysis on labs with CK elevated at 5000 which could explain his degree of muscle weakness Renal function currently stable, continue to monitor IVF NS @ 75 cc/hr to continue trend CK Labs with anemia, known to have iron deficiency for which he is on iron supplementation Transminitis, CT abdomen and pelvis without gross abnormalities or lover or biliary tree Check CPK level given c/o muscle weakness and h/o falls Recent CT CAP from 09/[address] c spine from yesterday with partial visualization of lung do not show any progression of his lung lesion. normal TSH add prn morphine for pain control PT/OT eval DVT ppx: lovenox Dispo: will need appropriate disposition planning- with recurent falls at home and being unsupervised, he is at risk of injury to self, will need assitsnace with living arrangements . Until then will benefit from IVF and ongoing skileld therapy. Change to inpatient admission for the gary Correia Medical Necessity Statement*: rhabdomyolysis, needs IVF, add morphine for pain control, trend CK, dispotion planning, ongoing physical therapy Coding Level of Care Code Acute Code for g Fwd Diagnoses Accidental fall from bed W06.XXXA Weakness R53.1 Seropositive rheumatoid arthritis of multiple joints M05.79 History of Hodgkin's lymphoma Z85.71 Iron deficiency anemia D50.9 Rhabdomyolysis M62.82
[2023-01-23] MEDS: enoxaparin 40 mg/0.4 mL Syringe SUBCUT (18:03)
[2023-01-23] MEDS: psyllium powder Pkt 1 PACKET PO (18:03)
[2023-01-23] MEDS: hydroxychloroquine 200 mg Tablet PO (18:03)
[2023-01-23] MEDS: HYDROcodone-acetaminophen 5-325 mg Tablet 1 TAB PO (18:04)
[2023-01-23 20:00] VITALS: BP 109/64; PULSE 68; RESP 16; TEMP 36.8; O2SAT 100
[2023-01-23] MEDS: ferrous sulfate EC 325 mg Tablet PO (21:19)
[2023-01-23] MEDS: sulfaSALAzine 500 mg Tablet PO (21:19)
[2023-01-24] VITALS: BP 100/49; PULSE 71; RESP 17; TEMP 36.9; O2SAT 97
[2023-01-24] MEDS: acetaminophen 325 mg Tablet 650 MG PO (00:47)
[2023-01-24] MEDS: sodium chloride 0.9% 1,000 ML 75 ML IV ×2 (02:44→18:09)
[2023-01-24 04:00] VITALS: BP 100/48; PULSE 75; RESP 18; TEMP 36.9; O2SAT 95
[2023-01-24 04:55] LABS: Basophils % 0.5 %; Eosinophils # 0.1 10^3/uL (0.0-0.8); Eosinophils % 1.6 %; Hematocrit 26.9 % (37-53); Lymphocytes % 12.5 %; Mean Corpuscular HGB Conc 32.7 g/dL (30-55); Mean Corpuscular Hemoglobin 28.9 pg (27-33); Mean Corpuscular Volume 88.5 fl (82-101); Mean Platelet Volume 10.2 fL (7.4-10.4); Monocytes # 0.7 10^3/uL (0.2-0.9); Monocytes % 9.5 %; Neutrophils # 5.75 10^3/uL (1.8-7.7); Neutrophils % 75.2 %; Nucleated Red Blood Cells % 0 %; Platelet Count 212 10^3/cmm (157-399); Red Blood Count 3.04 10^6/uL (3.85-5.65); Red Cell Distribution Width 13.5 % (12.1-15.1); White Blood Count 7.65 10^3/uL (3.29-11.43)
[2023-01-24 05:13] LABS: Alanine Aminotransferase 92 U/L (0-41); Albumin Level 2.8 g/dL (3.5-5.2); Alkaline Phosphatase 79 U/L (40-130); Anion Gap 9.3 (5-19); Aspartate Amino Transferase 107 U/L (0-40); Blood Urea Nitrogen 14 mg/dL (8-23); Calcium 8.4 mg/dL (8.5-10.5); Carbon Dioxide 26 mmol/L (22-29); Chloride 106 mmol/L (98-107); Globulin 2.6 g/dL (1.3-4.6); Glucose 100 mg/dL (65-115); Osmolality Calculated 285 mOsm/kg (285-295); Potassium 4.3 mmol/L (3.5-5.1); Sodium 137 mmol/L (136-145); Total Bilirubin 0.4 mg/dL (0.15-1.2); Total Protein 5.4 g/dL (6.6-8.7)
[2023-01-24 05:19] LABS: Creatine Phosphokinase 859 U/L (39-308)
[2023-01-24 08:00] VITALS: BP 119/64; PULSE 65; PULSE 68; RESP 16; TEMP 36.8; O2SAT 94; O2SAT 98
[2023-01-24] MEDS: folic acid 1 mg Tablet PO (08:22)
[2023-01-24] MEDS: psyllium powder Pkt 1 PACKET PO (08:22)
[2023-01-24] MEDS: pantoprazole DR 40 mg Tablet PO (08:23)
[2023-01-24] MEDS: sulfaSALAzine 500 mg Tablet PO ×2 (08:23→20:44)
[2023-01-24] MEDS: hydroxychloroquine 200 mg Tablet PO ×2 (08:23→18:02)
[2023-01-24] MEDS: ferrous sulfate EC 325 mg Tablet PO ×2 (08:23→20:44)
[2023-01-24 11:17] VITALS: BP 100/66; PULSE 75; RESP 15; TEMP 36.8; O2SAT 95
--- NOTE | 2023-01-24 11:40 | USCV_ITS ---
Peng Cooper Age: 77 Gender: M : 1945 Exam Date: 01/24/2023 19:00 Ordering Phys: Fernando Pepper MD Technologist: JULIA Exam Location: [facility] [place] Indication: badly swollen LUE for several days. No history of DVT per patient. Patient had LT should injury at age 38-40, resulting in severely LT thoracic outlet syndrome. HISTORY: badly swollen LUE for several days. No history of DVT per patient. Patient had LT should injury at age 38-40, resulting in severely LT thoracic outlet syndrome. PROCEDURES: Venous duplex imaging was performed in only the left upper extremity. The following venous structures were evaluated: internal jugular vein, subclavian vein, axillary vein, and brachial veins. In addition, the basilic vein, cephalic vein, radial vein, and ulnar vein. These veins demonstrate good spontaneity, compressibility and augmentation. Serial compression, augmentation maneuvers, and spectral Doppler flow evaluation were performed, which were normal. . FINDINGS: No evidence of deep vein thrombosis or superficial thrombophlebitis in the left upper extremity. CONCLUSIONS No evidence for left upper extremity deep venous thrombosis. Dr. Shaunna Mejia DO (Electronically Signed) Final Date: 25 January 2023 09:05 S
--- NOTE | 2023-01-24 11:40 | MR_ITS ---
WS: [id number] MRI HEAD WITHOUT CONTRAST TECHNIQUE: Sagittal T1, T2 axial, T2 axial FLAIR, axial and coronal T1 images, axial susceptibility w eighted imaging, axial diffusion weighted images, and coronal T2 images were obtained. CLINICAL INFORMATION: ams COMPARISON: CT 01/22/2023 FINDINGS: No evidence restricted diffusion to suggest acute ischemia. Ventricular system and basal cisterns are patent. Mild small vessel changes. Moderate parenchymal volume loss. Volume loss worse in the fronta l lobes and temporal lobes bilaterally. Normal vascular flow voids at the skull base. No extra-axial fluid collections. Mild mucosal thickeni ng in the paranasal sinuses. Mild mucosal thickening in the mastoid air cells. No hemosiderin on the susceptibility weighted images. Normal optic chiasm and pituitary infundibulum. IMPRESSION: 1. No evidence of restricted diffusion to suggest acute ischemia. 2. Mild small vessel changes. 3. Moderate parenchymal volume loss worse in the frontal and bilateral temporal lobes. 4. Moderate to advanced symmetric atrophy temporal lobes and hippocampal formations. 5. No hemosiderin on susceptibility-weighted images. 6. No other acute findings.
--- NOTE | 2023-01-24 11:41 | XR_ITS ---
WS: [id number] Exam: XR shoulder LT min 2V* [id number] Date/Time of Exam: 01/24/2023 12:07 PM Reason For Exam: fall/ pain An intact reverse shoulder prosthesis is noted. No sign of loosening or fracture. Normal soft tissues . Degenerative change of the AC joint. IMPRESSION: 1. Reverse shoulder prosthesis in satisfactory position without obvious complication.
--- NOTE | 2023-01-24 14:11 | PC.NURSE ---
This nurse along with Carolina Nguyễn LPN counted the money in patients wallet at bedside with the patient. Wallet was then placed in a sealed envelope and locked in the pyxus.
--- NOTE | 2023-01-24 15:48 | P.PN_ITS ---
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, requiring extensive surgery, -He cannot raise both arms above the level of the shoulder, due to severe pain in his shoulders -He does tell me that the left hand and the left leg do feel more weak than the right, chronicity is unknown, he is not sure how long he has had this for -No facial droop, no slurring of words, no visual deficits -He also reports left arm swelling, -Denies any fevers, no chills, no cough -Does report generalized weakness Vitals/I&O/Wt Last Vital Signs Temp 98.3 F 01/24/23 11:17 Pulse 75 01/24/23 11:17 Resp 15 01/24/23 11:17 BP 100/66 01/24/23 11:17 Pulse Ox 95 01/24/23 11:17 O2 Del Method Nasal Cannula 01/24/23 11:17 O2 Flow Rate 4 01/24/23 08:00 01/24/23 01/24/23 01/24/23 06:59 14:59 22:59 Intake Total 390 / 2960 720 / 720 Output Total 725 / 1600 Balance -335 / 1360 720 / 720 Physical Exam Const: COMMON NORMALS: no acute distress and patient oriented x3 Resp: COMMON NORMALS: normal respiratory effort, No retractions, No use of accessory muscles and clear to auscultation bilaterally AUSCULTATION: clear to auscultation bilaterally Cardio: COMMON NORMALS: regular rate, regular rhythm, S1 normal heart sound present and S2 normal heart sound present RATE: regular rate RHYTHM: regular rhythm HEART SOUNDS: S1 normal heart sound present and S2 normal heart sound present GI: COMMON NORMALS: Normal to inspection, nondistended, normoactive bowel sounds present and non-tender Extremity: COMMON NORMALS: no pedal edema Neuro: COMMON NORMALS: patient oriented x3, CN's II-XII intact bilaterally, moves all extremities and no sensory deficits noted OTHER: Left upper extremity strength 3 out of 5 compared to 5 out of 5 on the right, left lower extremity strength roughly equivalent to the right Psych: COMMON NORMALS: mental status grossly normal Skin: NARRATIVE SKIN EXAM: Bilateral temporal muscle wasting, bilateral arm, shoulder, thighs, calf muscle wasting Data 01/24/23 04:12 01/24/23 04:12 Micro: Microbiology 01/22/23 09:52 Urine Culture - Final Urine,Clean Catch A&P Assessment and plan (1) Moderate protein-calorie malnutrition: (2) Physical deconditioning: (3) Muscle wasting: (4) Rhabdomyolysis: (5) Iron deficiency anemia: (6) History of Hodgkin's lymphoma: (7) Weight loss: (8) Recurrent falls: (9) Generalized weakness: Plan 77 M with h/o Hodgkin's lymphoma, chronic alcoholism, seropositive RA and inflammatory arthritis p/w increasing generalized weakness, failure to thrive over past few months -History of non-Hodgkin's lymphoma, pleural-based mass -Multiple falls -30 pound weight loss -Rhabdomyolysis -Anemia -Transaminitis -Moderate protein calorie malnutrition, physical deconditioning, muscle wasting -History of dysphagia, consult speech -Anemia -Left-sided weakness, etiology unclear, time timeframe unclear, very mild left upper extremity weakness compared to right, no significant left lower extremity weakness upon my examination, alert oriented x3, following all commands, no visual deficits, no facial droop no slurring of his words, will order MRI of the brain, PT OT, does have extensive left shoulder surgery, left thoracic outlet syndrome, nonetheless start aspirin, statin, neurochecks, and a stroke scale, aspiration precautions, consult speech IVF NS @ 75 cc/hr to continue trend CK normal TSH add prn morphine for pain control PT/OT eval DVT ppx: lovenox Dispo: will need appropriate disposition planning- with recurent falls at home and being unsupervised, he is at risk of injury to self, will need assitsnace with living arrangements . Until then will benefit from IVF and ongoing skileld therapy. Change to inpatient admission for the [facility] Plan for today MRI of the head due to left-sided weakness, 30 pound weight loss, with non-Hodgkin's lymphoma with pleural placement a CT of the chest, continue IV fluids, anemia, 12 folate ferritin, iron, consult dietary, consult speech, PT OT, neurochecks, aspirin, statin Attestations Medical Necessity Statement*: Patient requires hospitalization for 30 pound weight loss, now with left-sided weakness, neurochecks, diet, consult speech, iron studies, Diagnoses Moderate protein-calorie malnutrition E44.0 Physical deconditioning R53.81 Muscle wasting M62.50 Rhabdomyolysis M62.82 Iron deficiency anemia D50.9 History of Hodgkin's lymphoma Z85.71 Weight loss R63.4 Recurrent falls R29.6 Generalized weakness R53.1
--- NOTE | 2023-01-24 15:51 | CTR_ITS ---
PROCEDURE INFORMATION: Exam: CT Chest Without Contrast; Diagnostic Exam date and time: 01/24/2023 7:54 PM Age: 77 years old Clinical indication: Other: Weight loss, plerual mass; Prior surgery; Surgery date: 6+ months; Surgery type: Bilat shoulders; Additional info: Weight loss, HX of nonhodgkin lymphoma, plerual mass TECHNIQUE: Imaging protocol: Diagnostic computed tomography of the chest without contrast. Radiation optimization: All CT scans at this facility use at least one of these dose optimization techniques: automated exposure control; mA and/or kV adjustment per patient size (includes targeted exams where dose is matched to clinical indication); or iterative reconstruction. REPORTING DATA: Count of CT and Cardiac NM exams in prior 12 months: This patient has received 6 known CTs and 0 known cardiac nuclear medicine studies in the 12 months prior to the current study. COMPARISON: CT chest abdpel w/*[id number] 09/16/2022 9:16 AM RADIATION DOSE METRICS: Total DLP (mGy-cm): 464 FINDINGS: Tubes, catheters and devices: Reverse left shoulder prosthesis. Thyroid: Homogeneous thyroid. Lungs: Irregular right apical pleuroparenchymal changes stable from most recent prior and improved when compared to 2021. Moderate centrilobular emphysema. Bilobed 4 mm nodule in the right upper lobe is unchanged. Coarse bibasilar reticular opacities and basilar honeycombing appears stable from prior compatible with chronic interstitial lung disease. Retained secretions are noted throughout the tracheobronchial tree. Central cylindrical and varicoid bronchiectasis is again noted. There is mild basilar traction bronchiectasis. Pleural spaces: Pleural based mass on the right measures 5.8 cm in maximal transverse dimension, 3.7 cm craniocaudad dimension, and 1.8 cm in thickness, unchanged from prior. No new pleural masses are evident. Previously seen left pleural effusion has resolved. No pneumothorax on either side. Heart: Low-attenuation intra cardiac blood pool is concerning for severe anemia. Stable right pericardial calcification. Heart size is normal. Aortic valve leaflet calcifications are noted. Coronary arteries: Moderate coronary artery calcification. Lymph nodes: Scattered non pathologically enlarged bilateral axillary lymph nodes. No supraclavicular adenopathy. No internal mammary adenopathy. Shoddy mediastinal lymph nodes are unchanged from prior. Subcarinal node measures 2.0 cm in diameter, unchanged. Vasculature: Normal caliber thoracic aorta with mild calcific plaque. Adrenal glands: Normal adrenals. Bones/joints: Moderate arthropathy right shoulder. There has been prior resection of the 1st ribs bilaterally. Age expected degenerative change noted throughout the thoracic spine without evidence of spinal stenosis. Multiple old healed bilateral rib fractures are noted. There is an acute fracture of the right 8th rib and probably the 9th rib. There is also buckling of the right 6th and 7th ribs. No acute rib fractures on the left. Soft tissues: Unremarkable. CT/CT chest wo con [id number] IMPRESSION: 1. Acute fractures of the right 8th and 9th ribs noted at the margins of the scan range. Additional fractures of lower ribs cannot be excluded. There are numerous healed bilateral rib fractures. No evidence of pneumothorax. 2. Stable appearance of right pleural mass. There has been interval resolution of left pleural effusion. Features of advanced basilar interstitial lung disease are again noted. No superimposed acute pneumonia is appreciated. 3. Stable 2.0 cm short axis diameter subcarinal lymph node. No enlarged adenopathy otherwise. 4. Potential for anemia. 5. Aortic valve leaflet calcifications can be associated with aortic stenosis. 6. Stable bilobed right upper lobe 4 mm nodule and biapical pleuroparenchymal irregularity warrant ongoing surveillance. For patients at low risk (minimal or absent history of smoking and of other known risk factors), no routine follow-up is indicated. For patients at high risk (history of smoking or of other known risk factors), consider optional CT Chest at 12 months. (Reference: Cassidy) REFERENCES: Cassidy Santiago, et al. Guidelines for Management of Incidental Pulmonary Nodules Detected on CT Images: From the Fleischner Society 2017. Radiology. 2017;284(1):228-243.
[2023-01-24 16:00] VITALS: BP 102/62; PULSE 69; RESP 17; TEMP 36.8; O2SAT 94
[2023-01-24 16:27] LABS: Erythrocyte Sedimentation Rate 28 mm/hr (0-10)
[2023-01-24 17:09] LABS: C Reactive Protein 93.5 mg/L (0.0-4.9); Iron 30 ug/dL (59-158); Percent Saturation 23.4 % (20-50); Total Iron Binding Capacity 128 mcg/dl; Unsaturated Iron Binding 98 ug/dL (112-347); Uric Acid 4.5 mg/dL (3.4-7.0)
[2023-01-24 17:21] LABS: Ferritin 1402 ng/mL (30-400)
[2023-01-24 17:25] LABS: Procalcitonin 0.56 ng/mL (0-0.5)
[2023-01-24] MEDS: enoxaparin 40 mg/0.4 mL Syringe SUBCUT (18:01)
[2023-01-24] MEDS: aspirin 81 mg EC Tablet PO (18:01)
[2023-01-24] MEDS: HYDROcodone-acetaminophen 5-325 mg Tablet 1 TAB PO (18:05)
[2023-01-24 19:08] LABS: Folate Level < 20.0 ng/mL (4.5-32.2)
[2023-01-24 20:00] VITALS: BP 97/57; PULSE 76; RESP 17; TEMP 36.7; O2SAT 98
[2023-01-24] MEDS: atorvastatin 40 mg Tablet PO (20:44)
[2023-01-24 22:34] LABS: Vitamin B12 > 2000 pg/mL (232-1245)
[2023-01-25] VITALS: BP 110/50; PULSE 73; RESP 18; TEMP 36.7; O2SAT 93
[2023-01-25 04:00] VITALS: BP 117/71; PULSE 75; RESP 17; TEMP 36.9; O2SAT 94
[2023-01-25 05:45] LABS: Basophils % 0.4 %; Eosinophils # 0.2 10^3/uL (0.0-0.8); Eosinophils % 1.9 %; Hematocrit 27.5 % (37-53); Lymphocytes # 0.8 10^3/uL (0.8-4.8); Lymphocytes % 9.8 %; Mean Corpuscular HGB Conc 34.2 g/dL (30-55); Mean Corpuscular Volume 87.9 fl (82-101); Mean Platelet Volume 9.5 fL (7.4-10.4); Monocytes # 0.7 10^3/uL (0.2-0.9); Monocytes % 8.7 %; Neutrophils # 6.64 10^3/uL (1.8-7.7); Neutrophils % 77.9 %; Nucleated Red Blood Cells % 0 %; Platelet Count 221 10^3/cmm (157-399); Red Blood Count 3.13 10^6/uL (3.85-5.65); Red Cell Distribution Width 13.3 % (12.1-15.1); White Blood Count 8.51 10^3/uL (3.29-11.43)
[2023-01-25 06:04] LABS: Alanine Aminotransferase 98 U/L (0-41); Albumin Level 2.8 g/dL (3.5-5.2); Alkaline Phosphatase 92 U/L (40-130); Anion Gap 7.7 (5-19); Aspartate Amino Transferase 90 U/L (0-40); Blood Urea Nitrogen 8 mg/dL (8-23); Calcium 9.3 mg/dL (8.5-10.5); Carbon Dioxide 28 mmol/L (22-29); Chloride 106 mmol/L (98-107); Globulin 2.9 g/dL (1.3-4.6); Glucose 98 mg/dL (65-115); Osmolality Calculated 284 mOsm/kg (285-295); Potassium 3.7 mmol/L (3.5-5.1); Sodium 138 mmol/L (136-145); Total Bilirubin 0.4 mg/dL (0.15-1.2); Total Protein 5.7 g/dL (6.6-8.7)
[2023-01-25 06:05] LABS: Creatine Phosphokinase 704 U/L (39-308)
[2023-01-25 08:00] VITALS: BP 115/70; PULSE 72; RESP 17; TEMP 36.8; O2SAT 97
[2023-01-25] MEDS: pantoprazole DR 40 mg Tablet PO (10:40)
[2023-01-25] MEDS: sulfaSALAzine 500 mg Tablet PO ×2 (10:40→20:17)
[2023-01-25] MEDS: aspirin 81 mg EC Tablet PO (10:40)
[2023-01-25] MEDS: ferrous sulfate EC 325 mg Tablet PO ×2 (10:40→20:17)
[2023-01-25] MEDS: hydroxychloroquine 200 mg Tablet PO ×2 (10:40→17:43)
[2023-01-25] MEDS: folic acid 1 mg Tablet PO (10:40)
[2023-01-25] MEDS: magnesium hydroxide 30 mL UDC PO (10:40)
[2023-01-25] MEDS: sodium chloride 0.9% 1,000 ML 75 ML IV ×2 (10:41→22:27)
[2023-01-25] MEDS: HYDROcodone-acetaminophen 5-325 mg Tablet 1 TAB PO ×2 (10:41→17:43)
[2023-01-25 12:00] VITALS: BP 126/67; PULSE 83; RESP 18; TEMP 37.1; O2SAT 95
--- NOTE | 2023-01-25 12:23 | PC.NURSE ---
Update was given to patients daughter, Cindy, via phone at [phone].
--- NOTE | 2023-01-25 14:42 | P.PN_ITS ---
Subjective Subjective: Patient was seen this morning, he reports persistent weakness on the left side, he does today have some word finding difficulty, no significant memory deficits, no facial droop, does have some slight slurring of his words, weakness of left upper extremity is persisted but improved compared to yesterday, no significant weakness I detected the left lower extremity, he is working with physical the rapy, alert oriented x3, denies any nausea, no vomiting, no headache, he is surprised to learn that he has multiple rib fractures he does have pain on his left side Vitals/I&O/Wt Last Vital Signs Temp 98.7 F 01/25/23 12:00 Pulse 83 01/25/23 12:00 Resp 18 01/25/23 12:00 BP 126/67 01/25/23 12:00 Pulse Ox 95 01/25/23 12:00 O2 Del Method Room Air 01/25/23 07:58 O2 Flow Rate 4 01/25/23 08:00 01/24/23 01/25/23 01/25/23 22:59 06:59 14:59 Intake Total 1240 / 1960 1720 / 1720 Output Total 325 / 325 200 / 525 1150 / 1150 Balance 915 / 1635 -200 / 1435 570 / 570 Physical Exam Const: COMMON NORMALS: no acute distress and patient oriented x3 Resp: COMMON NORMALS: normal respiratory effort, No retractions, No use of accessory muscles and clear to auscultation bilaterally AUSCULTATION: clear to auscultation bilaterally Cardio: COMMON NORMALS: regular rate, regular rhythm, S1 normal heart sound present and S2 normal heart sound present RATE: regular rate RHYTHM: regular rhythm HEART SOUNDS: S1 normal heart sound present and S2 normal heart sound present GI: COMMON NORMALS: Normal to inspection, nondistended, normoactive bowel sounds present and non-tender Extremity: COMMON NORMALS: no pedal edema Neuro: COMMON NORMALS: patient oriented x3 Psych: COMMON NORMALS: mental status grossly normal Data 01/25/23 05:14 01/25/23 05:14 A&P Assessment and plan (1) Moderate protein-calorie malnutrition: (2) Physical deconditioning: (3) Muscle wasting: (4) Rhabdomyolysis: (5) Iron deficiency anemia: (6) History of Hodgkin's lymphoma: (7) Weight loss: (8) Recurrent falls: (9) Generalized weakness: (10) Rib fractures: (11) Acute CVA (cerebrovascular accident): Plan 77 M with h/o Hodgkin's lymphoma, chronic alcoholism, seropositive RA and inflammatory arthritis p/w increasing generalized weakness, failure to thrive over past few months -History of non-Hodgkin's lymphoma, pleural-based mass -Multiple falls -30 pound weight loss -Rhabdomyolysis -Anemia -Transaminitis -Moderate protein calorie malnutrition, physical deconditioning, muscle wasting -History of dysphagia, consult speech -Anemia -Left-sided weakness, likely acute CVA, time timeframe unclear, NIH stroke scale is 2, out of tPA window as timeframe is unknown, today very mild left upper extremity weakness compared to right, no significant left lower extremity weakness upon my examination, alert oriented x3, following all commands, no visual deficits, no facial droop today mild slurring of his words, word finding difficulty, MRI of the brain no acute findings, PT OT, does have extensive left shoulder surgery, left thoracic outlet syndrome, nonetheless start aspirin, statin, neurochecks, and a stroke scale, aspiration precautions, consult speech We will stop fluids - multiple rib fractures 1. ? Acute fractures of the right 8th and 9th ribs noted at the margins of the scan range. Additional fractures of lower ribs cannot be excluded. There are numerous healed bilateral rib fractures. No evidence of pneumothorax. -Control, PT OT -Left upper extremity swelling, venous ultrasound negative for DVT, keep elevated -Does have an enlarged subcarinal lymph node at 2 cm, trend CK normal TSH add prn morphine for pain control PT/OT eval DVT ppx: lovenox Dispo: will need appropriate disposition planning- with recurent falls at home and being unsupervised, he is at risk of injury to self, will need assitsnace with living arrangements . Plan for today continue PT OT, aspirin, statin, pain control Attestations Medical Necessity Statement*: Patient requires hospitalization for rib fractures, now with acute CVA left- sided weakness Diagnoses Moderate protein-calorie malnutrition E44.0 Physical deconditioning R53.81 Muscle wasting M62.50 Rhabdomyolysis M62.82 Iron deficiency anemia D50.9 History of Hodgkin's lymphoma Z85.71 Weight loss R63.4 Recurrent falls R29.6 Generalized weakness R53.1 Rib fractures S22.49XA Acute CVA (cerebrovascular accident) I63.9
[2023-01-25 16:00] VITALS: BP 122/84; PULSE 79; RESP 17; TEMP 37; O2SAT 93
[2023-01-25] MEDS: enoxaparin 40 mg/0.4 mL Syringe SUBCUT (17:43)
[2023-01-25 20:00] VITALS: BP 147/92; PULSE 76; RESP 17; TEMP 36.5; O2SAT 96
[2023-01-25] MEDS: atorvastatin 40 mg Tablet PO (20:17)
[2023-01-25] MEDS: hyDROXYzine 25 mg Capsule PO (20:17)
[2023-01-26] VITALS: BP 145/56; PULSE 74; RESP 17; TEMP 36.4; O2SAT 95
[2023-01-26 03:44] VITALS: BP 161/84; PULSE 79; RESP 16; TEMP 36.6; O2SAT 97
[2023-01-26 05:57] LABS: Basophils % 0.4 %; Eosinophils # 0.2 10^3/uL (0.0-0.8); Eosinophils % 2.5 %; Hematocrit 30.1 % (37-53); Lymphocytes # 1.1 10^3/uL (0.8-4.8); Lymphocytes % 12.1 %; Mean Corpuscular HGB Conc 33.9 g/dL (30-55); Mean Corpuscular Hemoglobin 29.4 pg (27-33); Mean Corpuscular Volume 86.7 fl (82-101); Mean Platelet Volume 9.6 fL (7.4-10.4); Monocytes # 0.9 10^3/uL (0.2-0.9); Monocytes % 9.1 %; Neutrophils # 6.95 10^3/uL (1.8-7.7); Neutrophils % 73.9 %; Nucleated Red Blood Cells % 0 %; Platelet Count 257 10^3/cmm (157-399); Red Blood Count 3.47 10^6/uL (3.85-5.65); Red Cell Distribution Width 13.4 % (12.1-15.1); White Blood Count 9.42 10^3/uL (3.29-11.43)
[2023-01-26 06:15] LABS: Creatine Phosphokinase 564 U/L (39-308)
[2023-01-26 06:16] LABS: Alanine Aminotransferase 93 U/L (0-41); Albumin Level 3.2 g/dL (3.5-5.2); Alkaline Phosphatase 109 U/L (40-130); Anion Gap 10.8 (5-19); Aspartate Amino Transferase 73 U/L (0-40); Blood Urea Nitrogen 9 mg/dL (8-23); Calcium 9.6 mg/dL (8.5-10.5); Carbon Dioxide 27 mmol/L (22-29); Chloride 108 mmol/L (98-107); Globulin 2.9 g/dL (1.3-4.6); Glucose 107 mg/dL (65-115); Osmolality Calculated 291 mOsm/kg (285-295); Potassium 4.8 mmol/L (3.5-5.1); Sodium 141 mmol/L (136-145); Total Bilirubin 0.4 mg/dL (0.15-1.2); Total Protein 6.1 g/dL (6.6-8.7)
[2023-01-26 07:34] VITALS: BP 109/56; PULSE 82; RESP 82; TEMP 36.6; O2SAT 95
[2023-01-26 08:00] VITALS: BP 109/56; PULSE 82; RESP 82; TEMP 36.6
[2023-01-26 09:27] LABS: SARS Covid-2 Antigen negative (Negative)
--- NOTE | 2023-01-26 09:58 | P.DS_ITS ---
Discharge Providers Date of Admission: 01/24/23 00:20 Date of Discharge: January 26, 2023 Attending Provider at Admission: Paty Corado MD Attending Provider at Discharge: Fernando Pepper MD Primary Care Provider: Barrie Bhatt DO Diagnoses at Discharge Discharge Diagnosis (1) Moderate protein-calorie malnutrition: Status: Acute (2) Physical deconditioning: Status: Acute (3) Muscle wasting: Status: Acute (4) Rhabdomyolysis: Status: Acute (5) Iron deficiency anemia: Status: Chronic (6) History of Hodgkin's lymphoma: Status: Acute Permanent problem details: diagnosed in 2013, treated with ABVD with good result (7) Weight loss: Status: Acute (8) Recurrent falls: Status: Acute (9) Generalized weakness: Status: Acute (10) Rib fractures: Status: Acute (11) Acute CVA (cerebrovascular accident): Status: Acute Reason for Visit Reason for Visit: WEAKNESS Hospital Course Hospital Course Peng Cooper is a 77 year old male with PMH Hodgkin's lymphoma, currently on observation, last known to have stable pleural-based right upper thorax lesion size 4.4 x 1.4 cm ,no new lymphadenopathy or organomegaly or B symptoms. He also has a h/o rheumatoid arthritis, chronic alcoholism. He presnted to the hospital c/o generalized malaise, fatigue and recurrent falls at home. He usually is able to ambulate short distances in his house and reports making meals by himself. he states he has been increasingly fatigued and has been losing weight recently - he estimates about a 30 pound weight loss. He presented to the ER yesterday and was recommended to stay in the hospital to allow disposition planning as it did not appear he could care for himself and has no immediate family around to help him. Howevre he declined. Returned today when he? woke up and stated he could not use his hands for a walker or his phone.? His neighbor reported that he has had 2 additional falls since returning home. Is a 77-year-old male with a past medical history of Hodgkin's lymphoma, chronic alcoholism, seropositive RA, inflammatory arthritis, who presents to [facility] for generalized weakness, falls, failure to thrive Patient presents to [facility] for dehydration, rhabdomyolysis, received IV fluids, overall clinically improved, discharged to snf facility During his hospitalization, he was found to have multiple rib fractures, conser vatively managed, discharged to snf facility, PT OT, discharged on pain control to be used sparingly for pain During his hospitalization, patient had complaints of left-sided weakness, david padmini acute CVA, timeframe unclear, NIH stroke scale 2, out of tPA window, received PT OT, aspirin, statin, permissive hypertension,, overall on discharge his left-sided weakness has significantly resolved, I cannot discern any focal neurologic deficits on discharge, no significant lowering of his words, no word finding difficulty, During his hospitalization he was found to have anemia, transaminitis, moderate protein calorie malnutrition, physical deconditioning, muscle wasting, discharge snf facility, he also has a large subcarinal lymph node at 2 cm, with his Hodgkin's lymphoma, he could have a follow-up with Dr. Esparza as outpatient He had bilateral valdez wounds, left lower extremity, wounds, from his falls, continue wet-to-dry dressing, discharged on antibiotic therapy Physical Exam Const: COMMON NORMALS: no acute distress and patient oriented x3 Resp: COMMON NORMALS: normal respiratory effort, No retractions, No use of accessory muscles and clear to auscultation bilaterally AUSCULTATION: clear to auscultation bilaterally Cardio: COMMON NORMALS: regular rate, regular rhythm, S1 normal heart sound present and S2 normal heart sound present RATE: regular rate RHYTHM: regular rhythm HEART SOUNDS: S1 normal heart sound present and S2 normal hear t sound present GI: COMMON NORMALS: Normal to inspection, nondistended, normoactive bowel sounds present and non-tender Extremity: COMMON NORMALS: no pedal edema Neuro: COMMON NORMALS: patient oriented x3 Psych: COMMON NORMALS: mental status grossly normal Skin: NARRATIVE SKIN EXAM: bilateral valdez, wounds, abrasion from fall left foot, wound fall, Discharge Data Studies Completed and Pending Completed Studies During Hospitalization Category Date Time Status CT abdomen pelvis wo con [id number] Stat Cat Scan 01/22/23 10:[address] cervical spin wo con* [id number] Stat Cat Scan 01/22/23 12:[address] chest wo con [id number] Routine Cat Scan 01/24/23 15:[address] head wo con* [id number] Stat Cat Scan 01/22/23 09:08 Completed XR chest 1V portable [id number] Stat Exams 01/22/23 09:00 Completed XR shoulder LT min 2V* [id number] Routine Exams 01/24/23 11:41 Completed MR head wo con* [id number] Routine MRI 01/24/23 11:40 Completed US venous duplex upper extremity LT [CV venous duplex Ultrasound 01/24/23 11:[address] [place] [id number]] Routine Pending at discharge Category Date Time Status Complete Blood Count w/Auto AM LABS Lab 01/27/23 04:00 Ordered Comprehensive Metabolic Panel AM LABS Lab 01/27/23 04:00 Ordered Creatine Phosphokinase AM LABS Lab 01/27/23 04:00 Ordered Radiology Impressions Chest X-Ray 01/22/23 09:00 IMPRESSION: Unchanged pleural-based opacity along the right convexity. Opacity at the left base. Query small right pleural effusion. Head CT 01/22/23 09:08 IMPRESSION: No acute cardiopulmonary disease. Abdomen/Pelvis CT 01/22/23 10:07 IMPRESSION: Limited noncontrast CT examination. Query duodenitis. Please correlate clinically endoscopically. Constipation. 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 Finding should be followed with serial CT of the thorax in 6-12 months. Unchanged mild retroperitoneal lymphadenopathy, not significantly changed from the prior examination. Query particle disease associated with the right hip arthroplasty. Cervical Spine CT 01/22/23 12:05 IMPRESSION: 1. No acute fracture. 2. Right apical pulmonary nodule or scar is not significantly changed since 06/16/2020. No further follow-up imaging is necessary based on Fleischner society criteria for incidental pulmonary nodules. Chest CT 01/24/23 15:51 IMPRESSION: 1. Acute fractures of the right 8th and 9th ribs noted at the margins of the scan range. Additional fractures of lower ribs cannot be excluded. There are numerous healed bilateral rib fractures. No evidence of pneumothorax. 2. Stable appearance of right pleural mass. There has been interval resolution of left pleural effusion. Features of advanced basilar interstitial lung disease are again noted. No superimposed acute pneumonia is appreciated. 3. Stable 2.0 cm short axis diameter subcarinal lymph node. No enlarged adenopathy otherwise. 4. Potential for anemia. 5. Aortic valve leaflet calcifications can be associated with aortic stenosis. 6. Stable bilobed right upper lobe 4 mm nodule and biapical pleuroparenchymal irregularity warrant ongoing surveillance. For patients at low risk (minimal or absent history of smoking and of other known risk factors), no routine follow-up is indicated. For patients at high risk (history of smoking or of other known risk factors), consider optional CT Chest at 12 months. (Reference: Cassidy) REFERENCES: Cassidy Santiago et al. Guidelines for Management of Incidental Pulmonary Nodules Detected on CT Images: From the Fleischner Society 2017. Radiology. 2017;284(1):228-243. Laboratory Results WBC 9.42 10^3/uL (3.29-11.43) 01/26/23 05:37 RBC 3.47 10^6/uL (3.85-5.65) L 01/26/23 05:37 Hgb 10.20 g/dL (11.27-16.99) L 01/26/23 05:37 Hct 30.1 % (37-53) L 01/26/23 05:37 MCV 86.7 fl (82-101) 01/26/23 05:37 MCH 29.4 pg (27-33) 01/26/23 05:37 MCHC 33.9 g/dL (30-55) 01/26/23 05:37 RDW 13.4 % (12.1-15.1) 01/26/23 05:37 Plt Count 257 10^3/cmm (157-399) 01/26/23 05:37 MPV 9.6 fL (7.4-10.4) 01/26/23 05:37 Neut % (Auto) 73.9 % 01/26/23 05:37 Lymph % (Auto) 12.1 % 01/26/23 05:37 Branch % (Auto) 9.1 % 01/26/23 05:37 Eos % (Auto) 2.5 % 01/26/23 05:37 Baso % (Auto) 0.4 % 01/26/23 05:37 Neut # (Auto) 6.95 10^3/uL (1.8-7.7) 01/26/23 05:37 Lymph # (Auto) 1.1 10^3/uL (0.8-4.8) 01/26/23 05:37 Branch # (Auto) 0.9 10^3/uL (0.2-0.9) 01/26/23 05:37 Eos # (Auto) 0.2 10^3/uL (0.0-0.8) 01/26/23 05:37 Baso # (Auto) 0.0 10^3/uL (0.0-0.1) 01/26/23 05:37 Nucleated RBC % (auto) 0 % 01/26/23 05:37 Nucleated RBCs # 0.0 /100WBC 01/26/23 05:37 ESR 28 mm/hr (0-10) H 01/24/23 04:12 Sodium 141 mmol/L (136-145) 01/26/23 05:37 Potassium 4.8 mmol/L (3.5-5.1) 01/26/23 05:37 Chloride 108 mmol/L (98-107) H 01/26/23 05:37 Carbon Dioxide 27 mmol/L (22-29) 01/26/23 05:37 Anion Gap 10.8 (5-19) 01/26/23 05:37 BUN 9 mg/dL (8-23) 01/26/23 05:37 Creatinine 0.6 mg/dL (0.7-1.2) L 01/26/23 05:37 GFR Calculation Not Reportable 01/26/23 05:37 Glucose 107 mg/dL (65-115) 01/26/23 05:37 Calculated Osmolality 291 mOsm/kg (285-295) 01/26/23 05:37 Uric Acid 4.5 mg/dL (3.4-7.0) 01/24/23 04:12 Calcium 9.6 mg/dL (8.5-10.5) 01/26/23 05:37 Magnesium 2.4 mg/dL (1.7-2.3) H 01/23/23 04:26 Iron 30 ug/dL (59-158) L 01/24/23 04:12 TIBC 128 mcg/dl 01/24/23 04:12 % Saturation 23.4 % (20-50) 01/24/23 04:12 Unsat Iron Binding 98 ug/dL (112-347) L 01/24/23 04:12 Ferritin 1402 ng/mL (30-400) H 01/24/23 04:12 Total Bilirubin 0.4 mg/dL (0.15-1.2) 01/26/23 05:37 AST 73 U/L (0-40) H 01/26/23 05:37 ALT 93 U/L (0-41) H 01/26/23 05:37 Alkaline Phosphatase 109 U/L (40-130) 01/26/23 05:37 Ammonia 24 umol/L (16-60) 01/22/23 19:00 Creatine Kinase 564 U/L (39-308) H* 01/26/23 05:37 C-Reactive Protein 93.5 mg/L (0.0-4.9) H 01/24/23 04:12 Total Protein 6.1 g/dL (6.6-8.7) L 01/26/23 05:37 Albumin 3.2 g/dL (3.5-5.2) L 01/26/23 05:37 Globulin 2.9 g/dL (1.3-4.6) 01/26/23 05:37 Lipase 97 U/L (13-60) H 01/22/23 09:16 Vitamin B12 > 2000 pg/mL (232-1245) H 01/24/23 04:12 Folate < 20.0 ng/mL (4.5-32.2) 01/24/23 04:12 Procalcitonin 0.56 ng/mL (0-0.5) H 01/24/23 04:12 TSH 1.65 uIU/mL (0.27-4.20) 01/22/23 07:16 Urine Color Yellow (Yellow) 01/22/23 09:52 Urine Appearance Hazy (CLEAR) A 01/22/23 09:52 Urine pH 5 (5-7) 01/22/23 09:52 Ur Specific [place] 1.015 (1.005-1.030) 01/22/23 09:52 Urine Protein Trace (Negative) 01/22/23 09:52 Urine Glucose (UA) Norm (Normal) 01/22/23 09:52 Urine Ketones 1+ (Negative) H 01/22/23 09:52 Urine Blood 3+ (Negative) H 01/22/23 09:52 Urine Nitrate Negative (Negative) 01/22/23 09:52 Urine Bilirubin Neg (Negative) 01/22/23 09:52 Urine Urobilinogen Norm mg/dL (Negative) 01/22/23 09:52 Ur Leukocyte Esterase Negative (Negative) 01/22/23 09:52 Urine RBC 5-10 /hpf (0-2) H 01/22/23 09:52 Urine WBC 0-4 /hpf (0-5) H 01/22/23 09:52 Ur Squamous Epith Cells Rare /hpf (0-5) 01/22/23 09:52 Amorphous Sediment Not Reportable 01/22/23 09:52 Urine Bacteria 2+ /hpf (NONE) H 01/22/23 09:52 Hyaline Casts 5-10 /lpf H 01/22/23 09:52 Fine Granular Casts 0-4 /lpf H 01/22/23 09:52 Coarse Granular Casts 0-4 /lpf H 01/22/23 09:52 Urine Mucus 1+ /hpf 01/22/23 09:52 Ethyl Alcohol < 10 mg/dL (0-10) 01/22/23 09:16 Hepatitis A IgM Ab Non-reactive (Nonreactive) 01/22/23 09:16 Hep Bs Antigen Non-reactive (Nonreactive) 01/22/23 09:16 Hep B Core IgM Ab Non-reactive (Nonreactive) 01/22/23 09:16 Hepatitis C Antibody Non-reactive (Nonreactive) 01/22/23 09:16 SARS-CoV-2 Ag (Rapid) negative (Negative) 01/26/23 08:35 Vitals Last Vital Signs Temp 97.9 F 01/26/23 07:34 Pulse 82 01/26/23 07:34 Resp 82 H 01/26/23 07:34 BP 109/56 01/26/23 07:34 Pulse Ox 95 01/26/23 07:34 O2 Del Method Room Air 01/26/23 03:44 O2 Flow Rate 4 01/25/23 08:00 Discharge Plan Discharge Patient Disposition: Xfer SNF Condition: Stable Prescriptions: New aspirin 81 mg Tablet,Delayed Release (Dr/Ec) 81 mg PO DAILY 30 Days Qty: 30 0RF atorvastatin 40 mg Tablet 40 mg PO BEDTIME 30 Days Qty: 30 0RF hydrocodone-acetaminophen 5-325 mg Tablet 1 tab PO Q6H PRN (Reason: Moderate Pain) 7 Days Qty: 28 0RF doxycycline hyclate 100 mg tablet 100 mg PO BID 5 Days Qty: 10 0RF amoxicillin-pot clavulanate 875-125 mg tablet 1 tab PO BID 5 Days Qty: 10 0RF Continued ferrous sulfate 325 mg (65 mg iron) tablet 325 mg PO BID@0800,1999 op-6-npl-epa-fish oil-vit D3 300-1,000-1,000 mg-mg-unit capsule 1 cap PO DAILY@0800 magnesium 200 mg tablet 400 mg PO DAILY@0800 saw palmetto 500 mg capsule 500 mg PO BID@0800,1999 selenium 100 mcg tablet 100 mcg PO DAILY@0800 glucosamine HCl 750 mg tablet 1,500 mg PO DAILY@0800 artificial saliva (yerbas-lyt) Aerosol,[place] 1 spray mucous membrane Q4H PRN (Reason: dry mouth) Qty: 59 3RF Rx Instructions: administer while awake (DME) Custom inserts or similar See Rx Instructions .Route .MEDSUPPLY Qty: 1 0RF Rx Instructions: to folic acid 1 mg tablet 1 mg PO DAILY@0800 Qty: 90 1RF sulfasalazine 500 mg tablet 0.5 g PO BID@0800,1999 Qty: 180 1RF Rx Instructions: give with food (meal/snack) hydroxychloroquine 200 mg tablet 200 mg PO BID Qty: 180 2RF Multivitamin 50 Plus Tablet 1 tab PO DAILY@0800 Biotene Dry Mouth Oral Rinse liquid 15 ml PO 5XD MDD 5 PRN (Reason: Dry Mouth) Dry Eye Relief 1 - 2 drp eye-both PRN PRN (Reason: Dry Eyes) Metamucil 3.4 g PO 3XD PRN (Reason: Constipation) Discharge Orders: Discharge Order (Routine); Ordered 01/26/23 Ordered By: Fernando Pepper Referrals: [facility] [Outside] Barrie Esparza MD [Hospitalist] - 2 weeks (MSG SENT TO CLINIC 01/26 @ 1024) Barrie Bhatt DO [Primary Care Provider] - Discharge Diet: Cardiac and Diabetic Discharge Activity: Resume usual activity Patient Instructions: Opioid Safety Activity Restrictions/Additional Instructions: - Please hydrate well, drink plenty electrolyte balanced fluids -Please follow with Dr. Esparza -for wounds continue wet to dry dressing with tegaderm, antibiotics as abovir -use pain medication sparingly for pain Discharge Attestations Time Spent in Discharge Care*: greater than 30 min Quality Metrics Clinical Quality Measures [ No reported AMI, CVA or VTE this stay] Coding Level of Care Code 61746 Total time (in minutes) for Discharge: 45 Diagnoses Moderate protein-calorie malnutrition E44.0 Physical deconditioning R53.81 Muscle wasting M62.50 Rhabdomyolysis M62.82 Iron deficiency anemia D50.9 History of Hodgkin's lymphoma Z85.71 Weight loss R63.4 Recurrent falls R29.6 Generalized weakness R53.1 Rib fractures S22.49XA Acute CVA (cerebrovascular accident) I63.9
[2023-01-26] MEDS: HYDROcodone-acetaminophen 5-325 mg Tablet 1 TAB PO (10:00)
[2023-01-26] MEDS: hydroxychloroquine 200 mg Tablet PO (10:00)
[2023-01-26] MEDS: pantoprazole DR 40 mg Tablet PO (10:00)
[2023-01-26] MEDS: magnesium hydroxide 30 mL UDC PO (10:01)
--- NOTE | 2023-01-26 10:03 | PC.CHAP ---
Pastoral Care Encounter/Spiritual Assessment Type of Contact [] Declined wirer passenger car visit [] Patient/Family/Request visit [] Outpatient visit [] Follow-up visit [] Physician referral [] Code/Alert [x] Routine visit [] Staff referral [] Actively dying [] Patient sleeping [] Family support [] [] Out of room [] Palliative care [] [] Receiving care in room [] Pre-surgical visit [] Trauma [] Long length of stay [] ICU visit [] Other: Relational/Emotional Strength [] Patient feels connected with others/family/visitors/staff [] Distress [x] Loneliness/isolation [] Abandonment Spirituality of Patient [] Person of Radha [] Attends Sabianism of their Radha [x] Believes in Prayer [] Reads Bible or Roman Catholic materials [] There are Spiritual issues to be addressed Test Kitchen Home Economist Interventions [x] Prayer [x] Active listening [] Non-anxious presence [] Spiritual/emotional support [] Crisis/trauma care [] Spiritual counseling [] Bereavement support [] Provided bereavement packet [] Provided Bible/devotional materials [] Provided toy/stuffed animal, coloring book to patient or family member [] Provided Communion [] Anointing/[place] [] Salvation [x] Completed spiritual assessment [] Other: Impact on Illness or Injury [] Angry [] Fearful [] Anxious [] Often cries [] Exhaustion [x] Unable to work [] Unable to attend religion [x] Unable to walk/stand [] Unable to read [] Unable to drive [] Unable to eat/drink [] Unable to sleep [] Unable to be with family [] Patient intubated [] Other: Summary Time spent with patient 10 min
[2023-01-26] MEDS: ferrous sulfate EC 325 mg Tablet PO (10:26)
[2023-01-26] MEDS: sulfaSALAzine 500 mg Tablet PO (10:26)
--- NOTE | 2023-01-26 11:44 | PC.NURSE ---
This nurse performed dressing changes on bilateral knees with maxorb and tegaderm after cleaning with sterile 4x4s and normal saline. Pt tolerated well.
--- NOTE | 2023-01-26 11:57 | PC.NURSE ---
This nurse called report to Christiana at [facility] via phone at 1158am.
[2023-01-26 12:46] VITALS: BP 136/76; PULSE 71; RESP 18; TEMP 36.7; O2SAT 97
== END 2023-01-26 12:50 | disposition skilled nursing facility (03) | DRG 948 ==
LOC: ER 09:32 → MEDSURG 13:46
PROVIDERS: Admitting Provider Student in an Organized Health Care Education/Training Program; Emergency Provider Family Medicine; PCP Internal Medicine; Visit Provider Family Medicine
DX: R53.1 Weakness (principal); E44.0 Moderate protein-calorie malnutrition; C81.90 Hodgkin lymphoma, unspecified, unspecified site; S22.41XA Multiple fractures of ribs, right side, initial encounter for closed fracture; G81.94 Hemiplegia, unspecified affecting left nondominant side; M62.82 Rhabdomyolysis; R47.81 Slurred speech; R29.702 NIHSS score 2; W06.XXXA Fall from bed, initial encounter; M05.9 Rheumatoid arthritis with rheumatoid factor, unspecified; F10.10 Alcohol abuse, uncomplicated; R29.6 Repeated falls; D50.9 Iron deficiency anemia, unspecified; Z87.891 Personal history of nicotine dependence; Z77.090 Contact with and (suspected) exposure to asbestos; G62.9 Polyneuropathy, unspecified; M35.00 Sjogren syndrome, unspecified; Z96.612 Presence of left artificial shoulder joint; Z96.641 Presence of right artificial hip joint; K59.00 Constipation, unspecified; I71.40 Abdominal aortic aneurysm, without rupture, unspecified
CPT/HCPCS: 36415; 70450; 70551; 71045; 71250; 72125; 73030; 73060; 73562; 74176; 80053; 80074; 80307; 81001; 82140; 82550; 82607; 82728; 82746; 83540; 83550; 83690; 83735; 84145; 84443; 84550; 85025; 85651; 86140; 87086; 87426; 92507; 92523; 92610; 93971; 96372; 97110; 97161; 97165; 97530; 97535; 99284; 99285; G0378; J1650; J2405; J7030

== ENCOUNTER 2023-01-30 17:10 | Inpatient (IN) | payer MEDICARE, SELFPAY ==
[2023-01-30] VITALS (62 sets, daily range): BP systolic 63–141; BP diastolic 34–78; PULSE 64–86; RESP 10–39; TEMP 36.7; O2SAT 89–97; BMI 21.6
--- NOTE | 2023-01-30 17:15 | ECG_ITS ---
[facility] Test Date: 2023-01-30 Pat Name: Peng Cooper Department: Room: Gender: Male [employer] Routeman: : 1945 Requested By: Danny Stone Order Number: [id number] Gena MD: Enedina Blanco M.D. Measurements Intervals [place] Rate: 75 P: -4 ND: 189 QRS: -5 QRSD: 105 T: 19 QT: 381 QTc: 427 Interpretive Statements SINUS RHYTHM INCOMPLETE RIGHT BUNDLE BRANCH BLOCK [90+ ms QRS DURATION, TERMINAL R IN V1/V2, 40+ ms S IN I/aVL/V4/V5/V6] Compared to ECG 08/19/2022 08:49:00 Incomplete right bundle-branch block now present Atrial fibrillation no longer present Intraventricular conduction delay no longer present Electronically Signed On 01-31-2023 6:56:36 CDT by Enedina Blanco M.D. [id number]
--- NOTE | 2023-01-30 17:15 | XRR_ITS ---
PROCEDURE INFORMATION: Exam: XR Chest Exam date and time: 01/30/2023 5:30 PM Age: 77 years old Clinical indication: Dyspnea; Additional info: Weakness TECHNIQUE: Imaging protocol: Radiologic exam of the chest. Views: 1 view. COMPARISON: CT chest wo con [id number] 01/24/2023 7:54 PM FINDINGS: Lungs: Unchanged hyperinflation with interstitial prominence/fibrosis, basilar scarring and pleural base mass mid right lung. No new consolidation. Pulmonary vascularity is within normal limits. Pleural spaces: Unchanged right pleural thickening.. No pleural effusion. No pneumothorax. Heart/Mediastinum: Unremarkable. No cardiomegaly. Bones/joints: No acute abnormality. Postoperative left reverse shoulder arthroplasty. Multiple clips are projected over the upper chest. XR/XR chest 1V portable [id number] IMPRESSION: No acute findings. Unchanged exam.
--- NOTE | 2023-01-30 17:25 | CTR_ITS ---
PROCEDURE INFORMATION: Exam: CT Head Without Contrast Exam date and time: 01/30/2023 5:35 PM Age: 77 years old Clinical indication: Altered mental status/memory loss; Additional info: AMS TECHNIQUE: Imaging protocol: Computed tomography of the head without contrast. Radiation optimization: All CT scans at this facility use at least one of these dose optimization techniques: automated exposure control; mA and/or kV adjustment per patient size (includes targeted exams where dose is matched to clinical indication); or iterative reconstruction. REPORTING DATA: Count of CT and Cardiac NM exams in prior 12 months: This patient has received 7 known CTs and 0 known cardiac nuclear medicine studies in the 12 months prior to the current study. COMPARISON: MR head wo con* [id number] 01/24/2023 1:58 PM RADIATION DOSE METRICS: Total DLP (mGy-cm): 1046.9 FINDINGS: Brain: There is volume loss and periventricular low density compatible with chronic small vessel disease changes. There is no acute intracranial hemorrhage, edema or mass effect. There are moderate bifrontal benign hygromas. Cerebral ventricles: No ventriculomegaly. Paranasal sinuses: Visualized sinuses are unremarkable. No fluid levels. Mastoid air cells: Visualized mastoid air cells are well aerated. Bones/joints: Unremarkable. No acute fracture. Soft tissues: Unremarkable. CT/CT head wo con* [id number] IMPRESSION: No acute intracranial abnormality. Unchanged exam.
--- NOTE | 2023-01-30 17:28 | ED_ITS ---
Documented by User: Danny Stone MD 01/30/23 17:38 HPI - General Adult General: Chief complaint: Weakness Stated complaint: WEAKNESS Time Seen by Provider: 01/30/23 17:16 Source: patient and EMS Mode of arrival: EMS Limitations: no limitations History of Present Illness: 77-year-old male who had been recently admitted here for rhabdo my lysis dehydration frequent falls after his discharge from the hospital he was discharged to senior living last week. [facility] states over the last 2 days he has been more confused and much weaker. Patient here does have some slight confusion but he is able answer most my questions correctly knows that he lives in a senior living he knows the year and answering all my questions appropriately he has no complaints at this time denies any pain or vomiting he is hypotensive here. No known fevers Associated symptoms: Reports malaise; Deny chest pain, dyspnea, headache(s), nausea, rash or vomiting Review of Systems Const: Reports: fatigue and malaise; Denies: fever(s), chills, body aches or change in appetite Eyes: Denies: blurry vision or eye discomfort ENMT: Denies: throat pain or dental pain Card: Denies: chest pain Resp: Denies: dyspnea GI: Denies: abdominal pain, nausea, vomiting or diarrhea : Denies: dysuria Musc: Denies: neck pain or back pain Skin/Breast: Denies: rash Neuro: Denies: headache(s) Psych: Denies: depression Bryant/Lymph: Denies: easy bruising All/Imm: Denies: urticaria PFSH ED PFSH: Medical History (Updated 01/31/23 @ 04:25 by Danny Joshi DO) Acute CVA (cerebrovascular accident) Alcohol abuse Ex-smoker for more than 1 year History of exposure to asbestos History of Hodgkin's lymphoma diagnosed in 2013, treated with ABVD with good result History of PFTs Immunosuppression Iron deficiency anemia Marginal zone lymphoma identified in 2020 and 2021, observant management Neuropathy Onychomycosis Osteoarthritis Peripheral neuropathy Primary Sjogren's syndrome Rib fractures Right knee meniscal tear Seropositive rheumatoid arthritis of multiple joints Thoracic outlet syndrome Weight loss Surgical History History of arthroplasty of left shoulder History of arthroplasty of right hip History of revision of total replacement of right hip joint Status post colonoscopy Status post surgery Bilateral chest surgery for thoracic outlet syndrome Family History Other Cancer Dementia Diabetes Denies family history of CAD (coronary artery disease) Clotting disorder Hyperlipidemia Psychiatric illness Chronic kidney disease (CKD) Suicide Anesthesia complication Bleeding disorder Lung disease Hypertension Stroke Social History (Updated 01/30/23 @ 22:47 by Mango Lau MD) Smoking and tobacco status: former smoker Quit status (tobacco): has quit using tobacco Year quit tobacco: 2010 [id number] Second hand smoke exposure: No Smoking risk assessment/counseling performed?: Yes Alcohol intake: current Alcohol intake frequency: 0-2 Drinks per Day Alcohol type: beer Substance/Drug Use: never Caregiver/support person: No Lives independently: No Household members: other Housing: [facility] Marital status: / service: No Current occupational status: retired Pets and animals: Yes Do you think of yourself as: Straight/Heterosexual Current gender identity: Male Physical Exam Const: COMMON NORMALS: patient oriented x3 HENMT: COMMON NORMALS: normocephalic and atraumatic HEAD & SCALP: normocephalic and atraumatic Eye: COMMON NORMALS: Equal, round and reactive pupils present and EOMs intact bilaterally PUPIL: Yes Equal, round and reactive pupils present Neck/C-Spine: COMMON NORMALS: full ROM and supple Chest: COMMONS NORMALS: normal inspection of the chest and normal palpation of entire chest wall Resp: COMMON NORMALS: normal respiratory effort, No retractions, No use of accessory muscles and clear to auscultation bilaterally AUSCULTATION: clear to auscultation bilaterally Cardio: COMMON NORMALS: regular rate, regular rhythm and No murmurs present (Cardio) RATE: regular rate RHYTHM: regular rhythm GI: COMMON NORMALS: Normal to inspection, nondistended, normoactive bowel sounds present, Soft to palpation, non-tender and no masses PALPATION: Yes Soft to palpation Extremity: COMMON NORMALS: normal to inspection and full ROM Neuro: COMMON NORMALS: patient oriented x3, moves all extremities and no focal motor deficits Psych: COMMON NORMALS: mental status grossly normal, Normal thought process present and cooperative THOUGHT PROCESS: Normal thought process present Skin: COMMON NORMALS: no rashes or lesions noted and no wounds GENERAL SKIN EXAM: no rashes or lesions noted Course Vital Signs: Vital signs: Vital Signs Temperature 98.0 F 01/30/23 21:25 Pulse Rate 68 01/31/23 00:30 Respiratory Rate 18 01/31/23 00:30 Blood Pressure 97/56 01/31/23 00:30 Pulse Oximetry 92 01/31/23 00:30 Oxygen Delivery Me thod Room Air 01/31/23 00:27 Fraction of Inspir ed Oxygen 21 01/31/23 02:00 MDM - General Adult Lab Data 01/30/23 18:05 01/30/23 18:05 Radiology Impressions Chest X-Ray 01/30/23 17:15 IMPRESSION: No acute findings. Unchanged exam. Head CT 01/30/23 17:25 IMPRESSION: No acute intracranial abnormality. Unchanged exam. Chest/Abdomen/Pelvis CT 01/30/23 21:07 IMPRESSION: 1. Stable appearance of fibrotic change at the lung bases. No acute superimposed pneumonia to explain patient's sepsis. 2. Unchanged right lateral 8th and 9th rib acute fractures. Numerous additional old healed fractures are noted. IMPRESSION: 1. Etiology of patient's sepsis is unclear. There is mild edema surrounding the duodenum, and there is new gastric edema which could reflect gastroenteritis, but this is unlikely to be an etiology of sepsis. There is no evidence of renal obstruction or small bowel obstruction. A normal appendix is confirmed. 2. There is very large volume retained fecal debris throughout colon compatible with severe constipation. 3. 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 No bony destructive change is visible. Laboratory Results WBC 14.01 10^3/uL (3.29-11.43) H 01/30/23 18:05 RBC 2.86 10^6/uL (3.85-5.65) L 01/30/23 18:05 Hgb 8.50 g/dL (11.27-16.99) L 01/30/23 18:05 Hct 25.0 % (37-53) L 01/30/23 18:05 MCV 87.4 fl (82-101) 01/30/23 18:05 MCH 29.7 pg (27-33) 01/30/23 18:05 MCHC 34.0 g/dL (30-55) 01/30/23 18:05 RDW 13.4 % (12.1-15.1) 01/30/23 18:05 Plt Count 245 10^3/cmm (157-399) 01/30/23 18:05 MPV 9.9 fL (7.4-10.4) 01/30/23 18:05 Neut % (Auto) 82.0 % 01/30/23 18:05 Lymph % (Auto) 7.1 % 01/30/23 18:05 Jennings % (Auto) 7.9 % 01/30/23 18:05 Eos % (Auto) 1.1 % 01/30/23 18:05 Baso % (Auto) 0.5 % 01/30/23 18:05 Neut # (Auto) 11.50 10^3/uL (1.8-7.7) H 01/30/23 18:05 Lymph # (Auto) 1.0 10^3/uL (0.8-4.8) 01/30/23 18:05 Jennings # (Auto) 1.1 10^3/uL (0.2-0.9) H 01/30/23 18:05 Eos # (Auto) 0.2 10^3/uL (0.0-0.8) 01/30/23 18:05 Baso # (Auto) 0.1 10^3/uL (0.0-0.1) 01/30/23 18:05 Nucleated RBC % (auto) 0 % 01/30/23 18:05 Nucleated RBCs # 0.0 /100WBC 01/30/23 18:05 PT 14.40 SECONDS (12.1-14.9) 01/30/23 18:05 INR 1.08 (0.8-1.2) 01/30/23 18:05 Sodium 136 mmol/L (136-145) 01/30/23 18:05 Potassium 5.0 mmol/L (3.5-5.1) 01/30/23 18:05 Chloride 99 mmol/L (98-107) 01/30/23 18:05 Carbon Dioxide 28 mmol/L (22-29) 01/30/23 18:05 Anion Gap 14.0 (5-19) 01/30/23 18:05 BUN 20 mg/dL (8-23) 01/30/23 18:05 Creatinine 1.5 mg/dL (0.7-1.2) H 01/30/23 18:05 GFR Calculation Not Reportable 01/30/23 18:05 Glucose 99 mg/dL (65-115) 01/30/23 18:05 Calculated Osmolality 285 mOsm/kg (285-295) 01/30/23 18:05 Lactic Acid 1.0 mmol/L (0.5-2.2) 01/30/23 18:05 Calcium 9.2 mg/dL (8.5-10.5) 01/30/23 18:05 Magnesium 2.1 mg/dL (1.7-2.3) 01/30/23 18:05 Total Bilirubin 0.4 mg/dL (0.15-1.2) 01/30/23 18:05 AST 34 U/L (0-40) 01/30/23 18:05 ALT 54 U/L (0-41) H 01/30/23 18:05 Alkaline Phosphatase 105 U/L (40-130) 01/30/23 18:05 Creatine Kinase 74 U/L (39-308) 01/30/23 18:05 Total Protein 5.6 g/dL (6.6-8.7) L 01/30/23 18:05 Albumin 3.2 g/dL (3.5-5.2) L 01/30/23 18:05 Globulin 2.4 g/dL (1.3-4.6) 01/30/23 18:05 Procalcitonin 0.21 ng/mL (0-0.5) 01/30/23 18:05 TSH 8.53 uIU/mL (0.27-4.20) H 01/30/23 18:05 Free T4 1.18 ng/dL (0.82-1.77) 01/30/23 18:04 Free T3 2.4 PG/ML (2.0-4.4) 01/30/23 18:04 Random Cortisol 20.64 ug/dL (2.47-19.5) H 01/30/23 18:05 Urine Color Yellow (Yellow) 01/30/23 19:53 Urine Appearance Clear (CLEAR) 01/30/23 19:53 Urine pH 5 (5-7) 01/30/23 19:53 Ur Specific [place] 1.005 (1.005-1.030) 01/30/23 19:53 Urine Protein Neg (Negative) 01/30/23 19:53 Urine Glucose (UA) Norm (Normal) 01/30/23 19:53 Urine Ketones Negative (Negative) 01/30/23 19:53 Urine Blood Neg (Negative) 01/30/23 19:53 Urine Nitrate Negative (Negative) 01/30/23 19:53 Urine Bilirubin Neg (Negative) 01/30/23 19:53 Urine Urobilinogen Neg mg/dL (Negative) 01/30/23 19:53 Ur Leukocyte Esterase Negative (Negative) 01/30/23 19:53 Ethyl Alcohol < 10 mg/dL (0-10) 01/30/23 18:05 Discharge Plan Discharge Patient Disposition: Admitted As Inpatient Admit Provider: Mango Lau Clinical Impression: Generalized weakness, Acute kidney injury, Shock Condition: Serious Coding Level of Care Code ED Food And Beverage Server for Chg Fwd Documented by User: Danny Joshi DO 01/31/23 04:25 HPI - General Adult General: Chief complaint: Weakness Stated complaint: WEAKNESS Time Seen by Provider: 01/30/23 17:16 PFSH ED PFSH: Medical History (Updated 01/31/23 @ 04:25 by Danny Joshi DO) Acute CVA (cerebrovascular accident) Alcohol abuse Ex-smoker for more than 1 year History of exposure to asbestos History of Hodgkin's lymphoma diagnosed in 2013, treated with ABVD with good result History of PFTs Immunosuppression Iron deficiency anemia Marginal zone lymphoma identified in 2020 and 2021, observant management Neuropathy Onychomycosis Osteoarthritis Peripheral neuropathy Primary Sjogren's syndrome Rib fractures Right knee meniscal tear Seropositive rheumatoid arthritis of multiple joints Thoracic outlet syndrome Weight loss Surgical History History of arthroplasty of left shoulder History of arthroplasty of right hip History of revision of total replacement of right hip joint Status post colonoscopy Status post surgery Bilateral chest surgery for thoracic outlet syndrome Family History Other Cancer Dementia Diabetes Denies family history of CAD (coronary artery disease) Clotting disorder Hyperlipidemia Psychiatric illness Chronic kidney disease (CKD) Suicide Anesthesia complication Bleeding disorder Lung disease Hypertension Stroke Social History (Updated 01/30/23 @ 22:47 by Mango Lau MD) Smoking and tobacco status: former smoker Quit status (tobacco): has quit using tobacco Year quit tobacco: 2010 [id number] Second hand smoke exposure: No Smoking risk assessment/counseling performed?: Yes Alcohol intake: current Alcohol intake frequency: 0-2 Drinks per Day Alcohol type: beer Substance/Drug Use: never Caregiver/support person: No Lives independently: No Household members: other Housing: [facility] Marital status: / service: No Current occupational status: retired Pets and animals: Yes Do you think of yourself as: Straight/Heterosexual Current gender identity: Male Course Vital Signs: Vital signs: Vital Signs Temperature 98.0 F 01/30/23 21:25 Pulse Rate 68 01/31/23 00:30 Respiratory Rate 18 01/31/23 00:30 Blood Pressure 97/56 01/31/23 00:30 Pulse Oximetry 92 01/31/23 00:30 Oxygen Delivery Me thod Room Air 01/31/23 00:27 Fraction of Inspir ed Oxygen 21 01/31/23 02:00 MDM - General Adult Medical Decision Making 77-year-old gentleman with generalized weakness. He is checked out to me at shift change by the previous physician. His blood pressure was 64 systolic at its lowest. He has received 2.5 L of fluid, is on Levophed currently, with good pressures and good MAP above 65. White blood cell count is 14, hemoglobin is 8.5, lactic acid is 1.0. He was given 100 mg of hydrocortisone for stress dosing. Urinalysis is negative. Chest x-ray does not reveal any acute fin dings. Head CT is nonacute. Spoke with the hospitalist who agrees to admission. The patient will go to ICU as he is on pressors. Central line is not believed necessary at this point, as the patient appears to be improving significantly quite rapidly. Lab Data 01/30/23 18:05 01/30/23 18:05 Radiology Impressions Chest X-Ray 01/30/23 17:15 IMPRESSION: No acute findings. Unchanged exam. Head CT 01/30/23 17:25 IMPRESSION: No acute intracranial abnormality. Unchanged exam. Chest/Abdomen/Pelvis CT 01/30/23 21:07 IMPRESSION: 1. Stable appearance of fibrotic change at the lung bases. No acute superimposed pneumonia to explain patient's sepsis. 2. Unchanged right lateral 8th and 9th rib acute fractures. Numerous additional old healed fractures are noted. IMPRESSION: 1. Etiology of patient's sepsis is unclear. There is mild edema surrounding the duodenum, and there is new gastric edema which could reflect gastroenteritis, but this is unlikely to be an etiology of sepsis. There is no evidence of renal obstruction or small bowel obstruction. A normal appendix is confirmed. 2. There is very large volume retained fecal debris throughout colon compatible with severe constipation. 3. 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 No bony destructive change is visible. Laboratory Results WBC 14.01 10^3/uL (3.29-11.43) H 01/30/23 18:05 RBC 2.86 10^6/uL (3.85-5.65) L 01/30/23 18:05 Hgb 8.50 g/dL (11.27-16.99) L 01/30/23 18:05 Hct 25.0 % (37-53) L 01/30/23 18:05 MCV 87.4 fl (82-101) 01/30/23 18:05 MCH 29.7 pg (27-33) 01/30/23 18:05 MCHC 34.0 g/dL (30-55) 01/30/23 18:05 RDW 13.4 % (12.1-15.1) 01/30/23 18:05 Plt Count 245 10^3/cmm (157-399) 01/30/23 18:05 MPV 9.9 fL (7.4-10.4) 01/30/23 18:05 Neut % (Auto) 82.0 % 01/30/23 18:05 Lymph % (Auto) 7.1 % 01/30/23 18:05 Jennings % (Auto) 7.9 % 01/30/23 18:05 Eos % (Auto) 1.1 % 01/30/23 18:05 Baso % (Auto) 0.5 % 01/30/23 18:05 Neut # (Auto) 11.50 10^3/uL (1.8-7.7) H 01/30/23 18:05 Lymph # (Auto) 1.0 10^3/uL (0.8-4.8) 01/30/23 18:05 Jennings # (Auto) 1.1 10^3/uL (0.2-0.9) H 01/30/23 18:05 Eos # (Auto) 0.2 10^3/uL (0.0-0.8) 01/30/23 18:05 Baso # (Auto) 0.1 10^3/uL (0.0-0.1) 01/30/23 18:05 Nucleated RBC % (auto) 0 % 01/30/23 18:05 Nucleated RBCs # 0.0 /100WBC 01/30/23 18:05 PT 14.40 SECONDS (12.1-14.9) 01/30/23 18:05 INR 1.08 (0.8-1.2) 01/30/23 18:05 Sodium 136 mmol/L (136-145) 01/30/23 18:05 Potassium 5.0 mmol/L (3.5-5.1) 01/30/23 18:05 Chloride 99 mmol/L (98-107) 01/30/23 18:05 Carbon Dioxide 28 mmol/L (22-29) 01/30/23 18:05 Anion Gap 14.0 (5-19) 01/30/23 18:05 BUN 20 mg/dL (8-23) 01/30/23 18:05 Creatinine 1.5 mg/dL (0.7-1.2) H 01/30/23 18:05 GFR Calculation Not Reportable 01/30/23 18:05 Glucose 99 mg/dL (65-115) 01/30/23 18:05 Calculated Osmolality 285 mOsm/kg (285-295) 01/30/23 18:05 Lactic Acid 1.0 mmol/L (0.5-2.2) 01/30/23 18:05 Calcium 9.2 mg/dL (8.5-10.5) 01/30/23 18:05 Magnesium 2.1 mg/dL (1.7-2.3) 01/30/23 18:05 Total Bilirubin 0.4 mg/dL (0.15-1.2) 01/30/23 18:05 AST 34 U/L (0-40) 01/30/23 18:05 ALT 54 U/L (0-41) H 01/30/23 18:05 Alkaline Phosphatase 105 U/L (40-130) 01/30/23 18:05 Creatine Kinase 74 U/L (39-308) 01/30/23 18:05 Total Protein 5.6 g/dL (6.6-8.7) L 01/30/23 18:05 Albumin 3.2 g/dL (3.5-5.2) L 01/30/23 18:05 Globulin 2.4 g/dL (1.3-4.6) 01/30/23 18:05 Procalcitonin 0.21 ng/mL (0-0.5) 01/30/23 18:05 TSH 8.53 uIU/mL (0.27-4.20) H 01/30/23 18:05 Free T4 1.18 ng/dL (0.82-1.77) 01/30/23 18:04 Free T3 2.4 PG/ML (2.0-4.4) 01/30/23 18:04 Random Cortisol 20.64 ug/dL (2.47-19.5) H 01/30/23 18:05 Urine Color Yellow (Yellow) 01/30/23 19:53 Urine Appearance Clear (CLEAR) 01/30/23 19:53 Urine pH 5 (5-7) 01/30/23 19:53 Ur Specific [place] 1.005 (1.005-1.030) 01/30/23 19:53 Urine Protein Neg (Negative) 01/30/23 19:53 Urine Glucose (UA) Norm (Normal) 01/30/23 19:53 Urine Ketones Negative (Negative) 01/30/23 19:53 Urine Blood Neg (Negative) 01/30/23 19:53 Urine Nitrate Negative (Negative) 01/30/23 19:53 Urine Bilirubin Neg (Negative) 01/30/23 19:53 Urine Urobilinogen Neg mg/dL (Negative) 01/30/23 19:53 Ur Leukocyte Esterase Negative (Negative) 01/30/23 19:53 Ethyl Alcohol < 10 mg/dL (0-10) 01/30/23 18:05 All radiology interpretation(s) finalized by discharge Discharge Plan Discharge Patient Disposition: Admitted As Inpatient Admit Provider: Mango Lau Clinical Impression: Generalized weakness, Acute kidney injury, Shock Condition: Serious Coding Level of Care Code ED Food And Beverage Server for Chadwick Velasquez
[2023-01-30] MEDS: sodium chloride 0.9% 1,000 ML 999 ML IV ×2 (17:55→18:20)
[2023-01-30] MEDS: sodium chloride 0.9% 500 ML 999 ML IV (18:20)
[2023-01-30 18:32] LABS: Basophils # 0.1 10^3/uL (0.0-0.1); Basophils % 0.5 %; Eosinophils # 0.2 10^3/uL (0.0-0.8); Eosinophils % 1.1 %; Lymphocytes % 7.1 %; Mean Corpuscular Hemoglobin 29.7 pg (27-33); Mean Corpuscular Volume 87.4 fl (82-101); Mean Platelet Volume 9.9 fL (7.4-10.4); Monocytes # 1.1 10^3/uL (0.2-0.9); Monocytes % 7.9 %; Nucleated Red Blood Cells % 0 %; Platelet Count 245 10^3/cmm (157-399); Red Blood Count 2.86 10^6/uL (3.85-5.65); Red Cell Distribution Width 13.4 % (12.1-15.1); White Blood Count 14.01 10^3/uL (3.29-11.43)
[2023-01-30 18:59] LABS: INR 1.08 (0.8-1.2)
[2023-01-30 19:00] LABS: Alanine Aminotransferase 54 U/L (0-41); Albumin Level 3.2 g/dL (3.5-5.2); Alkaline Phosphatase 105 U/L (40-130); Aspartate Amino Transferase 34 U/L (0-40); Blood Urea Nitrogen 20 mg/dL (8-23); Calcium 9.2 mg/dL (8.5-10.5); Carbon Dioxide 28 mmol/L (22-29); Chloride 99 mmol/L (98-107); Creatine Phosphokinase 74 U/L (39-308); Globulin 2.4 g/dL (1.3-4.6); Glucose 99 mg/dL (65-115); Magnesium 2.1 mg/dL (1.7-2.3); Osmolality Calculated 285 mOsm/kg (285-295); Sodium 136 mmol/L (136-145); Total Bilirubin 0.4 mg/dL (0.15-1.2); Total Protein 5.6 g/dL (6.6-8.7)
[2023-01-30 19:07] LABS: Alcohol Level < 10 mg/dL (0-10)
[2023-01-30 19:20] LABS: Thyroid Stimulating Hormone 8.53 uIU/mL (0.27-4.20)
[2023-01-30] MEDS: hydrocortisone 100 mg/2 mL SDV IVP (21:04)
--- NOTE | 2023-01-30 21:07 | CTR_ITS ---
PROCEDURE INFORMATION: Exam: CT Chest Without Contrast; Diagnostic Exam date and time: 01/31/2023 2:01 AM Age: 77 years old Clinical indication: Other: Septic shock. Marino. Prior surgery; Surgery date: 6+ months; Surgery type: Left shoulder. Thoracic outlet. RT harrison. Patient HX: Septic shock with marino. History of lymphoma. ; Additional info: Marino, shock, h/o lymphoma TECHNIQUE: Imaging protocol: Diagnostic computed tomography of the chest without contrast. Radiation optimization: All CT scans at this facility use at least one of these dose optimization techniques: automated exposure control; mA and/or kV adjustment per patient size (includes targeted exams where dose is matched to clinical indication); or iterative reconstruction. REPORTING DATA: Count of CT and Cardiac NM exams in prior 12 months: This patient has received 8 known CTs and 0 known cardiac nuclear medicine studies in the 12 months prior to the current study. COMPARISON: CT chest con [id number] 01/24/2023 7:54 PM RADIATION DOSE METRICS: Total DLP (mGy-cm): 2381.44 FINDINGS: Lungs: Biapical pleuroparenchymal change is stable. Tiny bilobed right upper lobe pulmonary nodule is unchanged. Heterogeneous opacities at each lung base are unchanged from prior. There are findings of subpleural fibrosis and honeycombing in the right lower lobe. Cylindrical and bronchiectasis noted. No acute superimposed airspace disease. Pleural spaces: Stable right-sided pleural based fusiform mass measures 5.7 cm in diameter and 2.1 cm in thickness. Heart: Heart size is normal. Low-attenuation intra cardiac blood pool is concerning for severe anemia. Linear calcifications of aortic valve leaflets are noted. Coronary arteries: Extensive coronary artery hyperdensity could be calcification and/or stent material. Lymph nodes: Scattered non pathologically enlarged mediastinal lymph nodes. Stable mildly enlarged subcarinal node. Vasculature: Normal caliber thoracic aorta with moderate calcific plaque. Bones/joints: Prior bilateral 1st rib resection. Old healed bilateral rib fractures. Acute fractures of the right lateral 8th and 9th ribs are noted, unchanged from prior 1 week ago. Soft tissues: Unremarkable. PROCEDURE INFORMATION: Exam: CT Abdomen And Pelvis Without Contrast Exam date and time: 01/31/2023 2:01 AM Age: 77 years old Clinical indication: Other: Septic shock. Marino. Prior surgery; Surgery date: 6+ months; Surgery type: Left shoulder. Thoracic outlet. RT harrison. Patient HX: Septic shock with marino. History of lymphoma. ; Additional info: Marino, shock, h/o lymphoma TECHNIQUE: Imaging protocol: Computed tomography of the abdomen and pelvis without contrast. Radiation optimization: All CT scans at this facility use at least one of these dose optimization techniques: automated exposure control; mA and/or kV adjustment per patient size (includes targeted exams where dose is matched to clinical indication); or iterative reconstruction. REPORTING DATA: Count of CT and Cardiac NM exams in prior 12 months: This patient has received 8 known CTs and 0 known cardiac nuclear medicine studies in the 12 months prior to the current study. COMPARISON: CT abdomen pelvis wo con [id number] 01/22/2023 10:52 AM RADIATION DOSE METRICS: Total DLP (mGy-cm): 2381.44 FINDINGS: Tubes, catheters and devices: Catheterized urinary bladder. Liver: Normal configuration. Homogeneous parenchyma. Gallbladder and bile ducts: No regional inflammation. No calcified stones. No ductal dilation. Pancreas: Normal. No ductal dilation. Spleen: Normal. No splenomegaly. Adrenal glands: Normal configuration. Kidneys and ureters: Kidneys are symmetric without evidence of obstruction. Stomach and bowel: Gastric wall appears thickened. No visible gastric ulcer. Normal caliber small bowel. Very large volume retained fecal debris noted throughout the entire colon. Edema seen surrounding the duodenum on prior exam has improved but not completely resolved. No bowel wall pneumatosis. Appendix: Normal appendix is confirmed. Intraperitoneal space: No free air. No significant fluid collection. Vasculature: Mild to moderate aortoiliac calcific atherosclerosis noted without aneurysm. Ectatic upper abdominal aorta measures up to 3.8 cm in diameter. No infrarenal aortic aneurysmal change. No portal venous gas. Lymph nodes: No enlarged lymph nodes. Urinary bladder: Unremarkable as visualized. Reproductive: Physiologic appearance for age. Bones/joints: There is prominent nodular and heterogeneously calcified soft tissue thickening medial to the right acetabulum, unchanged from prior. There is lucency of the right acetabulum. Lucency surrounds the femoral stem the right hip prosthesis with eccentric remodeling of the bone. No acute bony injury. Soft tissues: Surgical clips are noted in the right inguinal region. CT/[place] [id number] IMPRESSION: 1. Stable appearance of fibrotic change at the lung bases. No acute superimposed pneumonia to explain patient's sepsis. 2. Unchanged right lateral 8th and 9th rib acute fractures. Numerous additional old healed fractures are noted. IMPRESSION: 1. Etiology of patient's sepsis is unclear. There is mild edema surrounding the duodenum, and there is new gastric edema which could reflect gastroenteritis, but this is unlikely to be an etiology of sepsis. There is no evidence of renal obstruction or small bowel obstruction. A normal appendix is confirmed. 2. There is very large volume retained fecal debris throughout colon compatible with severe constipation. 3. 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 No bony destructive change is visible.
--- NOTE | 2023-01-30 21:11 | PM.HP ---
Providers/Chief Complaint Admitting Physician: Mango Lau MD Primary Care Provider: Barrie Bhatt DO Chief Complaint: WEAKNESS History of Present Illness Eliza Cooper is a 77 year old male with past medical history of Hodgkin's lymphoma currently on observation treatment with unknown stable pleural based right upper thorax lesion, rheumatoid arthritis, Sjogren's syndrome on mesalamine and hydroxychloroquine, chronic alcoholism who was recently discharged to SNF on 01/26 when he was admitted to the hospital for 4 days after he was found down at home and was admitted for acute on chronic anemia, rhabdomyolysis with acute kidney injury requiring IV fluids. During that hospitalization he was also found to have moderate protein calorie energy malnutrition and severe physical deconditioning with anorexia. Patient was discharged home on oral antibiotics with wet-to-dry dressings. He was sent into the ER via EMS today as apparently he was getting for last 2 days with possibility of slight confusion. In the ER patient was found to be hypotensive for which he received 2.5 L of IV fluid bolus to which he did not respond and was later started on Levophed. On my examination in ICU patient is on 7 mics of Levophed, awake and alert able to have complete conversation without any confusion. He denies having any episodes of nausea, vomiting, change in his appetite, dysuria, subjective or known fevers but does complain of constipation for which he required manual disimpaction yesterday after which he was able to clear his bowels. Patient at baseline is incontinent of urine. He is able to ambulate with a walker but does need significant assistance. He states he is not sure why he is back in the hospital. Blood work appreciated. Review of Systems General: Reports: 10 or more systems reviewed and unremarkable except in HPI and below Const: Denies: fever(s), chills, body aches, change in appetite, change in weight, malaise, night sweats, diaphoresis, change in sleep pattern, daytime sleepiness or snoring Eyes: Denies: change in vision, blurry vision, photophobia, eye discomfort or eye discharge ENMT: Denies: throat pain, enlarged tonsils, hoarseness, mouth pain, oral sores, dry mouth, tinnitus, nasal congestion or post nasal drip Card: Denies: chest pain, palpitations, irregular heart rhythm, edema, swelling of feet/ankles, lightheadedness, syncope, pre-syncope, dyspnea on exertion, orthopnea, leg pain with exertion or acrocyanosis Resp: Denies: dyspnea, productive cough, non-productive cough, wheezing, stridor, pain on inspiration, change in phlegm color, hemoptysis or chest congestion GI: Denies: abdominal pain, nausea, vomiting, hematemesis, coffee ground emesis, dysphagia, heartburn, diarrhea, constipation, bloating, GI cramping, change in bowel habits, pain on defecation, hematochezia or melena : Denies: flank pain, difficulty urinating, dysuria, urinary frequency, urinary urgency, urinary hesitancy, urinary dribbling, difficulty starting urination, change in urine stream, nocturia or hematuria Musc: Denies: neck pain, back pain, extremity pain, joint pain, joint swelling, joint redness, joint stiffness or limited range of motion Neuro: Denies: headache(s), numbness in extremities, weakness in extremities, sensory changes, lack of coordination, difficulty walking, frequent falls, dizziness, vertigo, confusion, Slurred speech present, difficulty communicating thoughts or seizure-like activity Psych: Denies: anxiety, depression, mood swings, panic attacks, hopelessness or irritability Endo: Denies: polyuria, polydipsia, tired all the time, cold intolerance, excessive sweating, flushing or heat intolerance Bryant/Lymph: Denies: easy bruising or easy bleeding All/Imm: Denies: tongue swelling, facial swelling or acute wheezing Medications/Allergies Home Medications Medication Instructions Recorded Confirmed Last Taken Type ferrous sulfate 325 mg (65 mg 325 mg PO BID@06/19/19 01/22/23 01/19/23 History iron) tablet magnesium 200 mg tablet 400 mg PO DAILY@79906/19/19 01/22/23 01/19/23 History gj-[id number]-fish oil-vit D3 300 1 cap PO DAILY@79906/19/19 01/22/23 01/19/23 History mg-1,000 mg-1,000 unit capsule saw palmetto 500 mg capsule 500 mg PO BID@06/19/19 01/22/23 01/19/23 History selenium 100 mcg tablet 100 mcg PO DAILY@79906/19/19 01/22/2301/19/23 History vvodnfiuvvsf-bmjhqzek-rbvjwp 1 tab PO DAILY@0800 06/16/20 01/22/23 01/19/23 History tablet (Multivitamin 50 Plus tablet) folic acid 1 mg tablet 1 mg PO DAILY@0800 #90 tabs 09/28/21 01/22/23 01/19/23 Rx artificial saliva (yerba savannah and 1 spray mucous membrane Q4H PRN 01/04/22 01/22/23 01/19/23 Rx lytes) spray dry mouth #59 mL glucosamine HCl 750 mg tablet 1,500 mg PO DAILY@0800 01/04/22 01/22/23 01/19/23 History Custom inserts or similar #1 ea 06/21/22 01/22/23 Unknown Rx hydroxychloroquine 200 mg tablet 200 mg PO BID #180 tabs 10/07/22 01/22/23 01/19/23 Rx sulfasalazine 500 mg tablet 0.5 g PO BID@0800,1999 #180 tabs 10/07/22 01/22/23 01/19/23 Rx Biotene Dry Mouth Oral Rinse 15 ml PO 5XD PRN Dry Mouth 01/23/23 01/23/23 Unknown History Dry Eye Relief 1 - 2 drp eye-both PRN PRN Dry Eyes 01/23/23 01/23/23 Unknown History Metamucil 3.4 g PO 3XD PRN Constipation 01/23/23 01/23/23 Unknown History amoxicillin 875 mg-potassium 1 tab PO BID 5 days #10 tabs 01/26/23 Unknown Rx clavulanate 125 mg tablet aspirin 81 mg tablet,delayed 81 mg PO DAILY 30 days #30 tabs 01/26/23 Unknown Rx release atorvastatin 40 mg tablet 40 mg PO BEDTIME 30 days #30 tabs 01/26/23 Unknown Rx doxycycline hyclate 100 mg tablet 100 mg PO BID 5 days #10 tabs 01/26/23 Unknown Rx hydrocodone 5 mg-acetaminophen 325 1 tab PO Q6H PRN Moderate Pain 7 01/26/23 Unknown Rx mg tablet days #28 tabs Allergies Allergy/AdvReac Type Severity Reaction Status Date / Time No Known Allergies Allergy Verified 01/30/23 17:29 PFSH Acute PFSH: Medical History (Updated 01/30/23 @ 22:46 by Mango Lau MD) Acute CVA (cerebrovascular accident) Alcohol abuse Ex-smoker for more than 1 year History of exposure to asbestos History of Hodgkin's lymphoma diagnosed in 2013, treated with ABVD with good result History of PFTs Immunosuppression Iron deficiency anemia Marginal zone lymphoma identified in 2020 and 2021, observant management Neuropathy Onychomycosis Osteoarthritis Peripheral neuropathy Primary Sjogren's syndrome Rib fractures Right knee meniscal tear Seropositive rheumatoid arthritis of multiple joints Thoracic outlet syndrome Weight loss Surgical History History of arthroplasty of left shoulder History of arthroplasty of right hip History of revision of total replacement of right hip joint Status post colonoscopy Status post surgery Bilateral chest surgery for thoracic outlet syndrome Family History Other Cancer Dementia Diabetes Denies family history of CAD (coronary artery disease) Clotting disorder Hyperlipidemia Psychiatric illness Chronic kidney disease (CKD) Suicide Anesthesia complication Bleeding disorder Lung disease Hypertension Stroke Social History (Updated 01/30/23 @ 22:47 by Mango Lau MD) Smoking and tobacco status: former smoker Quit status (tobacco): has quit using tobacco Year quit tobacco: 2010 [id number] Second hand smoke exposure: No Smoking risk assessment/counseling performed?: Yes Alcohol intake: current Alcohol intake frequency: 0-2 Drinks per Day Alcohol type: beer Substance/Drug Use: never Caregiver/support person: No Lives independently: No Household members: other Housing: [facility] Marital status: / service: No Current occupational status: retired Pets and animals: Yes Do you think of yourself as: Straight/Heterosexual Current gender identity: Male Vitals/I&O/Wt Last Vital Signs Temp 98.1 F 01/30/23 17:15 Pulse 69 01/30/23 20:50 Resp 22 H 01/30/23 20:50 BP 113/62 01/30/23 20:50 Pulse Ox 94 01/30/23 20:50 O2 Del Method Room Air 01/30/23 19:00 01/30/23 01/30/23 01/30/23 06:59 14:59 22:59 Intake Total 1940.446 / 1940.446 Balance 1940.446 / 1940.446 Weight last 48 hrs Weight 58.967 kg Physical Exam Narrative: General: No acute distress, AO x3, cachectic, chronically sick appearing, dry oral cavity HEENT: PERRLA, pupils bilaterally equal and reactive Chest: Normal vesicular breath sounds, no added sounds, equal good air entry bilaterally CVS: S1-S2 regular, no murmurs, no tachycardia, no gallops, no rubs Abdomen: Soft, nontender, no organomegaly, bowel sounds present Neuro: No focal deficits, no facial deformity, AO x3, power 5/5 in all limbs Skin: Bilateral knee abrasion as seen in the pictures below, multiple superficial scabbed lesion on bilateral toes Skin: OTHER: Right knee Left knee Data 01/30/23 18:05 01/30/23 18:05 Micro: Microbiology 01/30/23 18:12 Blood Culture - Preliminary Blood SPECIMEN COLLECTED 01/30/23 18:05 Blood Culture - Preliminary Blood SPECIMEN COLLECTED A&P Assessment and plan (1) Shock: (2) Acute kidney injury: (3) Acute on chronic anemia: (4) Anorexia: (5) Physical deconditioning: (6) Recurrent falls: (7) Primary Sjogren's syndrome: (8) History of Hodgkin's lymphoma: (9) Abrasion of knee, bilateral: (10) Decubitus ulcer: Plan 77-year-old gentleman with past medical history of Sjogren's syndrome, rheumatoid arthritis, on observant treatment for Hodgkin's lymphoma who was recently discharged to SNF for severe physical deconditioning, anorexia when he was admitted for rhabdomyolysis after being found down on floor brought back to the ER with episodes of weakness, confusion found to be hypotensive not responding to IV fluids needing Levophed. Shock: Hypovolemic versus septic. For now do not have any active sites of infection. Patient denying any complaints, remains on room air. Keep mean artery pressure 65. Received septic dose fluid bolus in the ER. For now continue with D5 NS at 75 cc/h. Wean Levophed keeping mean arterial pressure 65. Strict input output charting. Hold off on antihypertensives. Check blood culture, procalcitonin, urinalysis, urine culture if needed, MRSA swab, cortisol levels, TSH. Empirically for now start patient on IV vancomycin and Zosyn. Will de-escalate antibiotics rapidly if patient remains afebrile. Check CT chest abdomen pelvis without contrast. Acute kidney injury: Most likely in setting of hypotension along with possible dehydration. Check urine lites, urine creatinine, urine eosinophils. Medical reconciliation done for nephrotoxic drugs. CT abdomen pelvis as above for obstructive nephropathy. IV fluids as above. Acute on chronic anemia: Hemoglobin down to 8.5 from 10.2 on discharge few days ago. Check stool for occult blood. Transfusion if hemoglobin drops below 7 Appreciate recent iron panel, vitamin B12 levels. Consistent with anemia of chronic disease Continue with oral iron supplementation and oral folic acids. History of anorexia with weight loss: Dietary consult with calorie chart. Regular diet with protein shakes Physical deconditioning with recurrent falls: Physical therapy to be continued Primary Sjogren's syndrome History of Hodgkin's lymphoma: Need to follow-up with Dr. Esparza as an outpatient. Cannot rule out reactivation. Bilateral knee abrasions/decubitus ulcer: Continue dressings with wet-to-dry daily Frequent repositioning. Oscar catheter as above. Continue other chronic medications. Hold off on atorvastatin. CODE STATUS: Discussed in detail with the patient. He would like to remain full code. In case he is not able to make his medical decision his daughter would make medical decisions for him. She lives in [facility]. Regular diet Protonix for PUD prophylaxis Heparin 5000 every 12 hourly for DVT prophylaxis Attestations Medical Necessity Statement*: Admission for more than 2 midnights for management of shock not responding to IV fluids requiring vasopressors, acute kidney injury and acute on chronic anemia while Levophed is tried to be weaned off Coding Level of Care Code Critical Care >/= 30 minutes Critical care time (in minutes): 60 The high probability of a clinically significant, sudden or life threatening deterioration, as referenced in this documentation, required my full and direct attention, intervention and personal management. The critical care time shown is in addition to time spent performing any reported separately billable procedures and includes the following: [x] Data and vital sign review and interpretation [x] Patient assessment, examination and intervention [x] Medication orders and management [x] Patient/Family updates as able [x] Care Coordination and Documentation. Diagnoses Shock R57.9 Acute kidney injury N17.9 Acute on chronic anemia D64.9 Anorexia R63.0 Physical deconditioning R53.81 Recurrent falls R29.6 Primary Sjogren's syndrome M35.00 History of Hodgkin's lymphoma Z85.71 Abrasion of knee, bilateral S80.211A; S80.212A Decubitus ulcer L89.90
[2023-01-30 21:18] LABS: Add Urine Microscopic? NO; Charge for UA Resulting for Rev
[2023-01-30 21:25] LABS: Bilirubin Urine Neg (Negative); Blood Urine Neg (Negative); Glucose Urine UA Norm (Normal); Ketones Urine Negative (Negative); Leukocyte Esterase Urine Negative (Negative); Nitrate Urine Negative (Negative); Protein Urine Neg (Negative); Specific Gravity, Urine 1.005 (1.005-1.030); Urine Appearance Clear (CLEAR); Urine Color Yellow (Yellow); Urobilinogen Urine Neg (Negative); pH Urine 5 (5-7)
[2023-01-30 21:38] LABS: Cortisol Random 20.64 ug/dL (2.47-19.5); Procalcitonin 0.21 ng/mL (0-0.5)
[2023-01-30 22:07] LABS: Free T4 Free Thyroxine 1.18 ng/dL (0.82-1.77); T3 Free 2.4 PG/ML (2.0-4.4)
[2023-01-30] MEDS: piperacillin-tazobactam 3.375 GM in sodium chloride 0.9% (plus) 50 ML IV (22:17)
[2023-01-30] MEDS: heparin 5,000 unit/mL INJ 1 mL 5000 UNIT SUBCUT (22:17)
[2023-01-30] MEDS: pantoprazole 40 mg SDV IVP (22:17)
[2023-01-30] MEDS: vancomycin 750 MG in sodium chloride 0.9% 250 ML 250 MG IV (22:34)
[2023-01-30] MEDS: dextrose 5%-sod chloride 0.9% 1,000 ML 75 ML IV (22:34)
[2023-01-30 23:32] LABS: Glucose Point of Care 168 mg/dL (70-110)
[2023-01-31] VITALS (64 sets, daily range): BP systolic 73–126; BP diastolic 44–72; PULSE 66–95; RESP 13–37; TEMP 36.9; O2SAT 89–98
[2023-01-31 00:03] LABS: Potassium, Radom Urine 24 mmol/L; Urine Creatinine 17 mg/dL (39-259); Urine Random Chloride 95 mmol/L; Urine Random Sodium 85 mmol/L
[2023-01-31 01:05] LABS: Eosinophil Urine No Eosinophils Seen; Urine Eosinophil Count 0 (0-0)
[2023-01-31 05:29] LABS: Basophils # 0.1 10^3/uL (0.0-0.1); Basophils % 0.5 %; Eosinophils % 0.1 %; Hematocrit 28.9 % (37-53); Lymphocytes # 0.7 10^3/uL (0.8-4.8); Lymphocytes % 4.9 %; Mean Corpuscular HGB Conc 32.9 g/dL (30-55); Mean Corpuscular Hemoglobin 29.5 pg (27-33); Mean Corpuscular Volume 89.8 fl (82-101); Monocytes # 0.4 10^3/uL (0.2-0.9); Monocytes % 2.7 %; Neutrophils % 90.7 %; Nucleated Red Blood Cells % 0 %; Platelet Count 279 10^3/cmm (157-399); Red Blood Count 3.22 10^6/uL (3.85-5.65); Red Cell Distribution Width 13.4 % (12.1-15.1); White Blood Count 14.54 10^3/uL (3.29-11.43)
[2023-01-31 05:43] LABS: Alanine Aminotransferase 49 U/L (0-41); Albumin Level 2.9 g/dL (3.5-5.2); Alkaline Phosphatase 109 U/L (40-130); Anion Gap 10.4 (5-19); Aspartate Amino Transferase 33 U/L (0-40); Blood Urea Nitrogen 17 mg/dL (8-23); Calcium 8.9 mg/dL (8.5-10.5); Carbon Dioxide 24 mmol/L (22-29); Chloride 104 mmol/L (98-107); Globulin 3.1 g/dL (1.3-4.6); Glucose 174 mg/dL (65-115); Magnesium 2.3 mg/dL (1.7-2.3); Osmolality Calculated 284 mOsm/kg (285-295); Phosphorus 3.8 mg/dL (2.5-4.5); Potassium 4.4 mmol/L (3.5-5.1); Sodium 134 mmol/L (136-145); Total Bilirubin 0.5 mg/dL (0.15-1.2)
[2023-01-31] MEDS: piperacillin-tazobactam 3.375 GM in sodium chloride 0.9% (plus) 50 ML IV ×3 (05:52→20:41)
[2023-01-31] MEDS: aspirin 81 mg EC Tablet PO (07:41)
[2023-01-31] MEDS: ferrous sulfate EC 325 mg Tablet PO ×2 (07:41→19:51)
[2023-01-31] MEDS: folic acid 1 mg Tablet PO (07:41)
[2023-01-31] MEDS: HYDROcodone-acetaminophen 5-325 mg Tablet 1 TAB PO ×2 (07:47→19:50)
[2023-01-31] MEDS: heparin 5,000 unit/mL INJ 1 mL 5000 UNIT SUBCUT ×2 (09:09→20:42)
[2023-01-31] MEDS: sulfaSALAzine 500 mg Tablet PO ×2 (09:10→19:51)
--- NOTE | 2023-01-31 10:50 | PC.PHAR ---
[id number] vancomycin: previously dosed at 750 q24h, patient renal function has improved (1.5 to 1.1) increased freq to q18h. trough before 02/02
[2023-01-31] MEDS: dextrose 5%-sod chloride 0.9% 1,000 ML 75 ML IV (11:06)
[2023-01-31] MEDS: bisacodyl 5 mg Tablet 10 MG PO (11:06)
[2023-01-31] MEDS: sennosides-docusate Tablet 2 TAB PO ×2 (12:35→17:34)
[2023-01-31] MEDS: magnesium hydroxide 30 mL UDC PO (12:36)
--- NOTE | 2023-01-31 15:01 | P.PN_ITS ---
Subjective Subjective: No acute events overnight. Patient seen today in ICU. Awake and alert. Denies any nausea, vomiting, headache. Levophed weaned down to 3 today early in the morning after which blood pressure 65 after which his blood pressures dropped to 80 systolics and Levophed turned up to 5 again. Patient otherwise denies any new complaints. Blood work appreciated for persistent leukocytosis around 14.5, hemoglobin 9.5, resolution of AVELINO with creatinine down to 1.1, mild hyponatremia with sodium at 134 today Vitals/I&O/Wt Last Vital Signs Temp 98.0 F 01/30/23 21:25 Pulse 73 01/31/23 12:30 Resp 21 H 01/31/23 12:30 BP 109/61 01/31/23 12:30 Pulse Ox 94 01/31/23 12:30 O2 Del Method Room Air 01/31/23 12:30 FiO2 21 01/31/23 06:00 01/31/23 01/31/23 01/31/23 06:59 14:59 22:59 Intake Total 442.154 / 2383.600 1801.788 / 1801.788 Output Total 2400 / 2700 1000 / 1000 Balance -1957.846 / -316.400 801.788 / 801.788 Weight last 48 hrs Weight 67.755 kg Weight 58.967 kg Physical Exam Narrative: General: No acute distress, AO x3, cachectic, chronically sick appearing, dry oral cavity HEENT: PERRLA, pupils bilaterally equal and reactive Chest: Normal vesicular breath sounds, no added sounds, equal good air entry bilaterally CVS: S1-S2 regular, no murmurs, no tachycardia, no gallops, no rubs Abdomen: Soft, nontender, no organomegaly, bowel sounds present Neuro: No focal deficits, no facial deformity, AO x3, power 5/5 in all limbs Skin: Bilateral knee abrasion as seen in the pictures below, multiple superficial scabbed lesion on bilateral toes Urinary Catheter Management: Coude: Cath Placed During This Visit: yes Reason for Continuing Indwelling Catheter: Accurate Measurement of Urinary Output in Critically Ill Patients Urinary Catheter Date of Insertion: 01/30/23 Urinary Catheter Time of Insertion: 22:00 Data 01/31/23 04:29 01/31/23 04:29 Micro: Microbiology 01/30/23 22:29 Bacterial Antigens - Final Urine Kidney 01/30/23 18:12 Blood Culture - Preliminary Blood SPECIMEN COLLECTED 01/30/23 18:05 Blood Culture - Preliminary Blood SPECIMEN COLLECTED A&P Assessment and plan (1) Shock: (2) Acute kidney injury: (3) Acute on chronic anemia: (4) Anorexia: (5) Physical deconditioning: (6) Recurrent falls: (7) Primary Sjogren's syndrome: (8) History of Hodgkin's lymphoma: (9) Abrasion of knee, bilateral: (10) Decubitus ulcer: Plan 77-year-old gentleman with past medical history of Sjogren's syndrome, rheumatoid arthritis, on observant treatment for Hodgkin's lymphoma who was recently discharged to SNF for severe physical deconditioning, anorexia when he was admitted for rhabdomyolysis after being found down on floor brought back to the ER with episodes of weakness, confusion found to be hypotensive not resp onding to IV fluids needing Levophed. Shock: Most likely hypovolemic with concerns for stercoral colitis on CT abdomen pelvis. Keep mean artery pressure 65. Received septic dose fluid bolus in the ER. For now continue with D5 NS at 75 cc/h. Wean Levophed keeping mean arterial pressure 65. Strict input output charting. Hold off on antihypertensives. Blood cultures so far negative, Pro-Rick negative, cortisol levels appreciated, bacterial antigen negative. Follow-up blood culture. Appreciate CT chest abdomen pelvis results. Continue with empiric vancomycin and Zosyn for now. Acute kidney injury: Resolved. Medical reconciliation done for nephrotoxic drugs. CT abdomen pelvis ruled out obstructive nephropathy. IV fluids as above. Acute on chronic anemia: Hemoglobin stable. Check stool for occult blood. Transfusion if hemoglobin drops below 7 Appreciate recent iron panel, vitamin B12 levels. Consistent with anemia of chronic disease Continue with oral iron supplementation and oral folic acids. Constipation: Most likely in setting of poor ambulation, dehydration. Aggressive bowel regimen. Enema in afternoon if not successful. History of anorexia with weight loss: Dietary consult with calorie chart. Regular diet with protein shakes Physical deconditioning with recurrent falls: Physical therapy to be continued Primary Sjogren's syndrome History of Hodgkin's lymphoma: Need to follow-up with Dr. Esparza as an outpatient. Cannot rule out reactivation. Bilateral knee abrasions/decubitus ulcer: Continue dressings with wet-to-dry daily Frequent repositioning. Oscar catheter as above. Continue other chronic medications. Hold off on atorvastatin. CODE STATUS: Discussed in detail with the patient. He would like to remain full code. In case he is not able to make his medical decision his daughter would make medical decisions for him. She lives in [facility]. Switch diet to soft mechanical as patient does not have any dentures Protonix for PUD prophylaxis Heparin 5000 every 12 hourly for DVT prophylaxis Attestations Medical Necessity Statement*: Requires further hospitalization for management of shock requiring vasopressors in a patient with significant constipation, physical deconditioning, resolving AVELINO Coding Level of Care Code Critical Care >/= 30 minutes Critical care time (in minutes): 50 The high probability of a clinically significant, sudden or life threatening deterioration, as referenced in this documentation, required my full and direct attention, intervention and personal management. The critical care time shown is in addition to time spent performing any reported separately billable procedures and includes the following: [x] Data and vital sign review and interpretation [x ] Patient assessment, examination and intervention [x] Medication orders and management [x] Patient/Family updates as able [x] Care Coordination and Documentation. Diagnoses Shock R57.9 Acute kidney injury N17.9 Acute on chronic anemia D64.9 Anorexia R63.0 Physical deconditioning R53.81 Recurrent falls R29.6 Primary Sjogren's syndrome M35.00 History of Hodgkin's lymphoma Z85.71 Abrasion of knee, bilateral S80.211A; S80.212A Decubitus ulcer L89.90
--- NOTE | 2023-01-31 17:07 | PC.NURSE ---
Sarah performed per Dr. Lau. SVI 40 SVI, change 16%, fluid responsive. Fluids ordered.
[2023-01-31] MEDS: vancomycin 750 MG in sodium chloride 0.9% 250 ML 250 MG IV (17:35)
[2023-01-31] MEDS: trazodone 50 mg Tablet 75 MG PO (20:04)
[2023-01-31] MEDS: artificial tears Op Soln 15 mL Btl 1 DROP EYE-BOTH (20:34)
[2023-01-31] MEDS: pantoprazole 40 mg SDV IVP (21:00)
[2023-02-01] VITALS (73 sets, daily range): BP systolic 73–120; BP diastolic 40–67; PULSE 70–98; RESP 7–34; TEMP 36.6–37.1; O2SAT 81–98
[2023-02-01] MEDS: HYDROcodone-acetaminophen 5-325 mg Tablet 1 TAB PO ×4 (03:06→22:56)
[2023-02-01] MEDS: piperacillin-tazobactam 3.375 GM in sodium chloride 0.9% (plus) 50 ML IV ×3 (05:12→21:16)
[2023-02-01 05:54] LABS: Basophils # 0.1 10^3/uL (0.0-0.1); Basophils % 0.6 %; Eosinophils # 0.1 10^3/uL (0.0-0.8); Eosinophils % 1.2 %; Lymphocytes # 1.1 10^3/uL (0.8-4.8); Lymphocytes % 10.4 %; Mean Corpuscular HGB Conc 33.2 g/dL (30-55); Mean Corpuscular Hemoglobin 29.7 pg (27-33); Mean Corpuscular Volume 89.6 fl (82-101); Mean Platelet Volume 10.3 fL (7.4-10.4); Monocytes % 9.1 %; Neutrophils # 8.52 10^3/uL (1.8-7.7); Neutrophils % 78.1 %; Nucleated Red Blood Cells % 0 %; Platelet Count 238 10^3/cmm (157-399); Red Blood Count 2.79 10^6/uL (3.85-5.65); Red Cell Distribution Width 13.6 % (12.1-15.1); White Blood Count 10.92 10^3/uL (3.29-11.43)
[2023-02-01 06:18] LABS: Magnesium 2.1 mg/dL (1.7-2.3); Phosphorus 2.8 mg/dL (2.5-4.5)
[2023-02-01 06:21] LABS: Alanine Aminotransferase 35 U/L (0-41); Albumin Level 2.7 g/dL (3.5-5.2); Alkaline Phosphatase 96 U/L (40-130); Aspartate Amino Transferase 28 U/L (0-40); Blood Urea Nitrogen 15 mg/dL (8-23); Calcium 8.6 mg/dL (8.5-10.5); Carbon Dioxide 27 mmol/L (22-29); Chloride 111 mmol/L (98-107); Globulin 2.6 g/dL (1.3-4.6); Glucose 106 mg/dL (65-115); Osmolality Calculated 297 mOsm/kg (285-295); Sodium 143 mmol/L (136-145); Total Bilirubin 0.4 mg/dL (0.15-1.2); Total Protein 5.3 g/dL (6.6-8.7)
[2023-02-01] MEDS: ferrous sulfate EC 325 mg Tablet PO ×2 (07:56→21:16)
[2023-02-01] MEDS: sennosides-docusate Tablet 2 TAB PO ×2 (07:57→17:43)
[2023-02-01] MEDS: folic acid 1 mg Tablet PO (07:57)
[2023-02-01] MEDS: aspirin 81 mg EC Tablet PO (07:57)
[2023-02-01] MEDS: dextrose 5%-sod chloride 0.9% 1,000 ML 75 ML IV ×2 (07:58→21:14)
[2023-02-01] MEDS: sulfaSALAzine 500 mg Tablet PO ×2 (07:58→21:16)
[2023-02-01] MEDS: heparin 5,000 unit/mL INJ 1 mL 5000 UNIT SUBCUT ×2 (09:33→21:27)
[2023-02-01] MEDS: vancomycin 750 MG in sodium chloride 0.9% 250 ML 250 MG IV (09:34)
[2023-02-01] MEDS: artificial tears Op Soln 15 mL Btl 1 DROP EYE-BOTH (10:29)
[2023-02-01] MEDS: midodrine 5 mg TABLET PO ×3 (12:27→21:16)
--- NOTE | 2023-02-01 15:12 | P.PN_ITS ---
Subjective Subjective: No acute events overnight. Patient today morning seen laying comfortably in bed. Worked with physical therapy prior to examination. Patient max assist during evaluation. Overnight Levophed is turned down to around 2 mics. Currently mean artery pressure being maintained over 65 on 2 mics. Yesterday Cheetah exam was done which showed patient to be fluid responsive with S VV of 13.5% Blood work appreciated for resolution of leukocytosis, hemoglobin stable at 8.3, CMP showing stable electrolytes Vitals/I&O/Wt Last Vital Signs Temp 98.7 F 02/01/23 14:00 Pulse 77 02/01/23 14:00 Resp 21 H 02/01/23 14:00 BP 103/58 02/01/23 14:00 Pulse Ox 96 02/01/23 14:00 O2 Del Method Room Air 02/01/23 14:00 O2 Flow Rate 2 02/01/23 05:45 FiO2 21 01/31/23 06:00 02/01/23 02/01/23 02/01/23 06:59 14:59 22:59 Intake Total 1798.582 / 6396.970 1099.090 / 1099.090 Output Total 3400 / 5100 900 / 900 Balance -1601.418 / 1296.970 199.090 / 199.090 Weight last 48 hrs Weight 69.513 kg Weight 67.755 kg Weight 58.967 kg Physical Exam Narrative: General: No acute distress, AO x3, cachectic, chronically sick appearing, dry oral cavity HEENT: PERRLA, pupils bilaterally equal and reactive Chest: Normal vesicular breath sounds, no added sounds, equal good air entry bilaterally CVS: S1-S2 regular, no murmurs, no tachycardia, no gallops, no rubs Abdomen: Soft, nontender, no organomegaly, bowel sounds present Neuro: No focal deficits, no facial deformity, AO x3, power 5/5 in all limbs Skin: Bilateral knee abrasion as seen in the pictures below, multiple superficial scabbed lesion on bilateral toes Urinary Catheter Management: Coude: Cath Placed During This Visit: yes Reason for Continuing Indwelling Catheter: Accurate Measurement of Urinary Output in Critically Ill Patients Urinary Catheter Date of Insertion: 01/30/23 Urinary Catheter Time of Insertion: 22:00 Data 02/01/23 05:14 09/19/23 05:14 Micro: Microbiology 01/30/23 18:12 Blood Culture - Preliminary Blood NEGATIVE TO DATE 01/30/23 18:05 Blood Culture - Preliminary Blood NEGATIVE TO DATE A&P Assessment and plan (1) Shock: (2) Acute kidney injury: (3) Acute on chronic anemia: (4) Anorexia: (5) Physical deconditioning: (6) Recurrent falls: (7) Primary Sjogren's syndrome: (8) History of Hodgkin's lymphoma: (9) Abrasion of knee, bilateral: (10) Decubitus ulcer: Plan 77-year-old gentleman with past medical history of Sjogren's syndrome, rheumatoid arthritis, on observant treatment for Hodgkin's lymphoma who was recently discharged to SNF for severe physical deconditioning, anorexia when he was admitted for rhabdomyolysis after being found down on floor brought back to the ER with episodes of weakness, confusion found to be hypotensive not responding to IV fluids needing Levophed. Shock: Most likely hypovolemic with concerns for stercoral colitis on CT abdomen pelvis. Cheetah exam shows patient to be fluid responsive. Given extra sepsis bolus yesterday. We will repeat Cheetah exam later in the day today. Keep mean artery pressure 65. For now continue with D5 NS at 75 cc/h. Wean Levophed keeping mean arterial pressure 65. Strict input output charting. Hold off on antihypertensives. For now start patient on midodrine 5 mg 3 times daily. Uptitrate as for goal blood pressures. Blood cultures so far negative, Pro-Rick negative, cortisol levels appreciated, bacterial antigen negative. Follow-up blood culture. Appreciate CT chest abdomen pelvis results. Continue with empiric vancomycin and Zosyn for now. MRSA swab awaited. Once negative can discontinue vancomycin. Acute kidney injury: Resolved. Good urine output. Medical reconciliation done for nephrotoxic drugs. CT abdomen pelvis ruled out obstructive nephropathy. IV fluids as above. Acute on chronic anemia: Hemoglobin stable. Check stool for occult blood. Transfusion if hemoglobin drops below 7 Appreciate recent iron panel, vitamin B12 levels. Consistent with anemia of chronic disease Continue with oral iron supplementation and oral folic acids. Constipation: Resolving. Most likely in setting of poor ambulation, dehydration. Continue with aggressive bowel regimen. Mineral water enema as needed. History of anorexia with weight loss: Dietary consult with calorie chart. Regular diet with protein shakes Physical deconditioning with recurrent falls: Physical therapy to be continued Primary Sjogren's syndrome History of Hodgkin's lymphoma: Need to follow-up with Dr. Esparza as an outpatient. Cannot rule out reactivation. Bilateral knee abrasions/decubitus ulcer: Continue dressings with wet-to-dry daily Frequent repositioning. Oscar catheter as above. Continue other chronic medications. Hold off on atorvastatin. CODE STATUS: Discussed in detail with the patient. He would like to remain full code. In case he is not able to make his medical decision his daughter would make medical decisions for him. She lives in [facility]. Switch diet to soft mechanical as patient does not have any dentures Protonix for PUD prophylaxis Heparin 5000 every 12 hourly for DVT prophylaxis Attestations Medical Necessity Statement*: Requires further hospitalization for management of hypovolemic shock in setting of dehydration, severe constipation while vasopressors are weaned off Coding Level of Care Code Critical Care >/= 30 minutes Critical care time (in minutes): 50 The high probability of a clinically significant, sudden or life threatening deterioration, as referenced in this documentation, required my full and direct attention, intervention and personal management. The critical care time shown is in addition to time spent performing any reported separately billable procedures and includes the following: [x] Data and vital sign review and interpretation [x ] Patient assessment, examination and intervention [x] Medication orders and management [x] Patient/Family updates as able [x] Care Coordination and Documentation. Diagnoses Shock R57.9 Acute kidney injury N17.9 Acute on chronic anemia D64.9 Anorexia R63.0 Physical deconditioning R53.81 Recurrent falls R29.6 Primary Sjogren's syndrome M35.00 History of Hodgkin's lymphoma Z85.71 Abrasion of knee, bilateral S80.211A; S80.212A Decubitus ulcer L89.90
--- NOTE | 2023-02-01 15:40 | PC.NURSE ---
Norepinephrine 01/31/23 0730, inf/titr shows running at 9 mcg/min but pump running at 3 mcg/min. New bag scanned and charted at 3 mcg/min.
[2023-02-01] MEDS: pantoprazole 40 mg SDV IVP (21:16)
[2023-02-02] VITALS (77 sets, daily range): BP systolic 82–139; BP diastolic 43–94; PULSE 65–114; RESP 15–38; TEMP 36.7–36.8; O2SAT 83–96
[2023-02-02 03:25] LABS: Basophils # 0.1 10^3/uL (0.0-0.1); Basophils % 0.6 %; Eosinophils # 0.2 10^3/uL (0.0-0.8); Eosinophils % 2.2 %; Hematocrit 25.7 % (37-53); Lymphocytes # 1.2 10^3/uL (0.8-4.8); Lymphocytes % 11.6 %; Mean Corpuscular HGB Conc 32.7 g/dL (30-55); Mean Corpuscular Hemoglobin 29.2 pg (27-33); Mean Corpuscular Volume 89.2 fl (82-101); Mean Platelet Volume 9.5 fL (7.4-10.4); Monocytes # 1.1 10^3/uL (0.2-0.9); Monocytes % 10.4 %; Neutrophils # 7.69 10^3/uL (1.8-7.7); Neutrophils % 74.5 %; Nucleated Red Blood Cells % 0 %; Platelet Count 252 10^3/cmm (157-399); Red Blood Count 2.88 10^6/uL (3.85-5.65); Red Cell Distribution Width 13.7 % (12.1-15.1); White Blood Count 10.32 10^3/uL (3.29-11.43)
[2023-02-02 03:46] LABS: Alanine Aminotransferase 43 U/L (0-41); Alkaline Phosphatase 125 U/L (40-130); Anion Gap 9.8 (5-19); Aspartate Amino Transferase 40 U/L (0-40); Blood Urea Nitrogen 15 mg/dL (8-23); Calcium 9.2 mg/dL (8.5-10.5); Carbon Dioxide 26 mmol/L (22-29); Chloride 106 mmol/L (98-107); Globulin 2.6 g/dL (1.3-4.6); Glucose 105 mg/dL (65-115); Osmolality Calculated 285 mOsm/kg (285-295); Potassium 4.8 mmol/L (3.5-5.1); Sodium 137 mmol/L (136-145); Total Bilirubin 0.2 mg/dL (0.15-1.2); Total Protein 5.6 g/dL (6.6-8.7)
[2023-02-02 03:47] LABS: Magnesium 1.9 mg/dL (1.7-2.3); Phosphorus 3.7 mg/dL (2.5-4.5); Vancomycin Trough 5.3 ug/mL (10-15)
[2023-02-02] MEDS: vancomycin 1,000 MG in sodium chloride 0.9% 250 ML 250 MG IV (04:05)
[2023-02-02] MEDS: piperacillin-tazobactam 3.375 GM in sodium chloride 0.9% (plus) 50 ML IV ×2 (05:31→13:55)
[2023-02-02] MEDS: midodrine 5 mg TABLET PO ×3 (08:14→20:02)
[2023-02-02] MEDS: folic acid 1 mg Tablet PO (08:14)
[2023-02-02] MEDS: ferrous sulfate EC 325 mg Tablet PO ×2 (08:14→19:59)
[2023-02-02] MEDS: sulfaSALAzine 500 mg Tablet PO ×2 (08:14→19:59)
[2023-02-02] MEDS: sennosides-docusate Tablet 2 TAB PO ×2 (08:14→17:07)
[2023-02-02] MEDS: aspirin 81 mg EC Tablet PO (08:14)
[2023-02-02] MEDS: heparin 5,000 unit/mL INJ 1 mL 5000 UNIT SUBCUT ×2 (08:58→20:49)
[2023-02-02] MEDS: HYDROcodone-acetaminophen 5-325 mg Tablet 1 TAB PO ×2 (10:12→20:00)
[2023-02-02] MEDS: sodium chloride 0.9% 1,000 ML 999 ML IV ×2 (10:13→12:53)
[2023-02-02 13:09] LABS: Methicillin-Resist S.aureu PCR NOT DETECTED (NOT DETECTED)
[2023-02-02] MEDS: dextrose 5%-sod chloride 0.9% 1,000 ML 125 ML IV ×2 (13:55→21:03)
--- NOTE | 2023-02-02 16:55 | PC.SOCIAL ---
IMM Update Pg 2 of IMM updated and reviewed w/ patient. Copy provided and copy dated, initialed and placed in chart.
--- NOTE | 2023-02-02 16:59 | P.PN_ITS ---
Subjective Subjective: Seen multiple times during the day. Earlier today morning patient was on 3 of Levophed which was later weaned off early in the morning. Document urine output yesterday of more than 6.8 L. Patient overall 3.3 L negative. Patient is awake and alert. Denies any nausea vomiting, headache. Requesting for physical therapy. Blood work appreciated for resolving leukocytosis, stable hemoglobin and CMP Vitals/I&O/Wt Last Vital Signs Temp 98.2 F 02/02/23 08:15 Pulse 74 02/02/23 15:45 Resp 17 02/02/23 15:45 BP 108/60 02/02/23 15:45 Pulse Ox 92 02/02/23 15:45 O2 Del Method Room Air 02/01/23 18:30 O2 Flow Rate 2 02/01/23 05:45 FiO2 21 01/31/23 06:00 02/02/23 02/02/23 02/02/23 06:59 14:59 22:59 Intake Total 574.107 / 3198.197 3833.057 / 3833.057 Output Total 3700 / 6800 2125 / 2125 1525 / 3650 Balance -3125.893 / -3601.803 1708.057 / 1708.057 -1525 / 183.057 Weight last 48 hrs Weight 67.84 kg Weight 69.513 kg Physical Exam Narrative: General: No acute distress, AO x3, cachectic, chronically sick appearing, dry oral cavity HEENT: PERRLA, pupils bilaterally equal and reactive Chest: Normal vesicular breath sounds, no added sounds, equal good air entry bilaterally CVS: S1-S2 regular, no murmurs, no tachycardia, no gallops, no rubs Abdomen: Soft, nontender, no organomegaly, bowel sounds present Neuro: No focal deficits, no facial deformity, AO x3, power 5/5 in all limbs Skin: Bilateral knee abrasion as seen in the pictures below, multiple superficial scabbed lesion on bilateral toes Urinary Catheter Management: Coude: Cath Placed During This Visit: yes Reason for Continuing Indwelling Catheter: Accurate Measurement of Urinary Output in Critically Ill Patients Urinary Catheter Date of Insertion: 01/30/23 Urinary Catheter Time of Insertion: 22:00 Data 02/02/23 03:07 02/02/23 03:07 A&P Assessment and plan (1) Shock: (2) Acute kidney injury: (3) Acute on chronic anemia: (4) Anorexia: (5) Physical deconditioning: (6) Recurrent falls: (7) Primary Sjogren's syndrome: (8) History of Hodgkin's lymphoma: (9) Abrasion of knee, bilateral: (10) Decubitus ulcer: Plan 77-year-old gentleman with past medical history of Sjogren's syndrome, rheumatoid arthritis, on observant treatment for Hodgkin's lymphoma who was recently discharged to SNF for severe physical deconditioning, anorexia when he was admitted for rhabdomyolysis after being found down on floor brought back to the ER with episodes of weakness, confusion found to be hypotensive not responding to IV fluids needing Levophed. Shock: Most likely hypovolemic with concerns for stercoral colitis on CT abdomen pelvis. Cheetah exam shows patient to be fluid responsive. Given extra sepsis bolus yesterday. We will repeat Cheetah exam later in the day today. Keep mean artery pressure 65. For now continue with D5 NS at 75 cc/h. Wean Levophed keeping mean arterial pressure 65. Strict input output charting. Hold off on antihypertensives. For now start patient on midodrine 5 mg 3 times daily. Uptitrate as for goal blood pressures. Blood cultures so far negative, Pro-Rick negative, cortisol levels appreciated, bacterial antigen negative. Follow-up blood culture. Appreciate CT chest abdomen pelvis results. Continue with empiric vancomycin and Zosyn for now. MRSA swab awaited. Once negative can discontinue vancomycin. Acute kidney injury: Resolved. Good urine output. Medical reconciliation done for nephrotoxic drugs. CT abdomen pelvis ruled out obstructive nephropathy. IV fluids as above. Acute on chronic anemia: Hemoglobin stable. Check stool for occult blood. Transfusion if hemoglobin drops below 7 Appreciate recent iron panel, vitamin B12 levels. Consistent with anemia of chronic disease Continue with oral iron supplementation and oral folic acids. Constipation: Resolving. Most likely in setting of poor ambulation, dehydration. Continue with aggressive bowel regimen. Mineral water enema as needed. History of anorexia with weight loss: Dietary consult with calorie chart. Regular diet with protein shakes Physical deconditioning with recurrent falls: Physical therapy to be continued Primary Sjogren's syndrome History of Hodgkin's lymphoma: Need to follow-up with Dr. Esparza as an outpatient. Cannot rule out reactivation. Bilateral knee abrasions/decubitus ulcer: Continue dressings with wet-to-dry daily Frequent repositioning. Oscar catheter as above. Continue other chronic medications. Hold off on atorvastatin. CODE STATUS: Discussed in detail with the patient. He would like to remain full code. In case he is not able to make his medical decision his daughter would make medical decisions for him. She lives in [facility]. Switch diet to soft mechanical as patient does not have any dentures Protonix for PUD prophylaxis Heparin 5000 every 12 hourly for DVT prophylaxis Plan for the day: Wean off Levophed keeping mean artery pressure between 60-65. Strict input per charting. Target net euvolemia today. Increase IV fluid to 125 cc/h. If needed will do Cheetah and repeat fluid bolus. Continue with midodrine 5 mg 3 times daily. Out of bed to chair. No concerns for infection anymore. We will hold off any further antibiotics. Monitor for next 24 hours. Continue bowel regimen. Discharge plan: Plan to discharge within next 24 hours if hemodynamics remain [facility]. Attestations Medical Necessity Statement*: Requires further hospitalization for management of shock in setting of possible hypovolemia while vasopressors were weaned off Coding Level of Care Code Critical Care >/= 30 minutes Critical care time (in minutes): 50 The high probability of a clinically significant, sudden or life threatening deterioration, as referenced in this documentation, required my full and direct attention, intervention and personal management. The critical care time shown is in addition to time spent performing any reported separately billable procedures and includes the following: [x] Data and vital sign review and interpretation [x ] Patient assessment, examination and intervention [x] Medication orders and management [x] Patient/Family updates as able [x] Care Coordination and Documentation. Diagnoses Shock R57.9 Acute kidney injury N17.9 Acute on chronic anemia D64.9 Anorexia R63.0 Physical deconditioning R53.81 Recurrent falls R29.6 Primary Sjogren's syndrome M35.00 History of Hodgkin's lymphoma Z85.71 Abrasion of knee, bilateral S80.211A; S80.212A Decubitus ulcer L89.90
--- NOTE | 2023-02-02 17:31 | USCV_ITS ---
Peng Cooper Age: 77 Gender: M : 1945 Exam Date: 02/02/2023 18:21 Ordering Phys: Mango Lau MD Technologist: JULIA Exam Location: [facility] [place] Indication: badly swollen LUE for several days . No history of DVT per patient. 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 HISTORY: Badly swollen LUE for several days . No history of DVT per patient. 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 Note that a LUE venous study was performed here on 01/24/2023, and this was pointed out to the patient's ICU nurse, who called Dr. Lau to see if he, indeed, wanted a repeat; to which he replied in the affirmative. PROCEDURES: Venous duplex imaging was performed in only the left upper extremity. The following venous structures were evaluated: internal jugular vein, subclavian vein, axillary vein, and brachial veins. In addition, the basilic vein, cephalic vein, radial vein, and ulnar vein. These veins demonstrate good spontaneity, compressibility, and augmentation. Serial compression, augmentation maneuvers, and spectral Doppler flow evaluation were performed, which were normal. Although the LUE is, again, seen to be edematous, there is no evidence of deep or superficial thromobophlebitis. CONCLUSIONS No evidence of thrombus of the left upper extremity veins. Jasvir Staley MD (Electronically Signed) Final Date: 03 February 2023 17:04 S
[2023-02-02] MEDS: artificial tears Op Soln 15 mL Btl 1 DROP EYE-BOTH (20:02)
[2023-02-02] MEDS: pantoprazole 40 mg SDV IVP (20:49)
[2023-02-03] VITALS (16 sets, daily range): BP systolic 91–124; BP diastolic 50–81; PULSE 75–92; RESP 18–30; TEMP 36.6–36.9; O2SAT 90–98
--- NOTE | 2023-02-03 00:34 | PC.NURSE ---
Addendum entered by John Moore RN 02/03/23 00:38: Took over patient care 0035. Patient resting comfortably in bed, no reports of pain. MAP >65. Original Note: Report given to John Moore RN
[2023-02-03] MEDS: HYDROcodone-acetaminophen 5-325 mg Tablet 1 TAB PO ×2 (05:07→13:47)
[2023-02-03] MEDS: dextrose 5%-sod chloride 0.9% 1,000 ML 125 ML IV ×2 (05:08→07:42)
[2023-02-03 05:41] LABS: Basophils # 0.1 10^3/uL (0.0-0.1); Basophils % 0.7 %; Eosinophils # 0.3 10^3/uL (0.0-0.8); Eosinophils % 2.7 %; Hematocrit 25.7 % (37-53); Lymphocytes # 0.9 10^3/uL (0.8-4.8); Mean Corpuscular HGB Conc 33.1 g/dL (30-55); Mean Corpuscular Hemoglobin 29.3 pg (27-33); Mean Corpuscular Volume 88.6 fl (82-101); Monocytes # 0.9 10^3/uL (0.2-0.9); Monocytes % 9.4 %; Neutrophils # 7.16 10^3/uL (1.8-7.7); Neutrophils % 76.5 %; Nucleated Red Blood Cells % 0 %; Platelet Count 276 10^3/cmm (157-399); Red Cell Distribution Width 13.6 % (12.1-15.1); White Blood Count 9.37 10^3/uL (3.29-11.43)
[2023-02-03 06:21] LABS: Magnesium 1.8 mg/dL (1.7-2.3); Phosphorus 3.8 mg/dL (2.5-4.5)
[2023-02-03 06:22] LABS: Alanine Aminotransferase 43 U/L (0-41); Albumin Level 2.9 g/dL (3.5-5.2); Alkaline Phosphatase 127 U/L (40-130); Anion Gap 10.9 (5-19); Aspartate Amino Transferase 35 U/L (0-40); Blood Urea Nitrogen 11 mg/dL (8-23); Calcium 9.3 mg/dL (8.5-10.5); Carbon Dioxide 25 mmol/L (22-29); Chloride 109 mmol/L (98-107); Globulin 2.2 g/dL (1.3-4.6); Glucose 99 mg/dL (65-115); Osmolality Calculated 289 mOsm/kg (285-295); Potassium 4.9 mmol/L (3.5-5.1); Sodium 140 mmol/L (136-145); Total Bilirubin 0.2 mg/dL (0.15-1.2); Total Protein 5.1 g/dL (6.6-8.7)
[2023-02-03] MEDS: ferrous sulfate EC 325 mg Tablet PO (07:30)
[2023-02-03] MEDS: morphine 4 mg/mL SDV 1 mL 2 MG IVP (07:30)
[2023-02-03] MEDS: folic acid 1 mg Tablet PO (07:30)
--- NOTE | 2023-02-03 08:49 | P.DS_ITS ---
Discharge Providers Date of Admission: 01/30/23 21:40 Date of Discharge: February 03, 2023 Attending Provider at Admission: Mango Lau MD Attending Provider at Discharge: Mango Lau MD Primary Care Provider: Barrie Bhatt DO Diagnoses at Discharge Discharge Diagnosis (1) Shock: Status: Acute (2) Acute kidney injury: Status: Acute (3) Acute on chronic anemia: Status: Acute (4) Anorexia: Status: Acute (5) Physical deconditioning: Status: Acute (6) Recurrent falls: Status: Acute (7) Primary Sjogren's syndrome: Status: Chronic (8) History of Hodgkin's lymphoma: Status: Acute Permanent problem details: diagnosed in 2013, treated with ABVD with good result (9) Abrasion of knee, bilateral: Status: Acute (10) Decubitus ulcer: Status: Acute Reason for Visit Reason for Visit: WEAKNESS Hospital Course Hospital Course Peng Cooper is a 77 year old male with past medical history of Hodgkin's lymphoma currently on observation treatment with 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 During that hospitalization he was also found to have moderate protein calorie energy malnutrition and severe physical deconditioning with anorexia.? Patient was discharged home on oral antibiotics with wet-to-dry dressings. Patient was admitted to the ICU for further evaluation and management of shock along with acute kidney injury. During hospitalization CT abdomen chest pelvis was done which was negative for acute abnormality but was ultimately concerning for severe constipation. His blood cultures and urine cultures remain negative. Patient remained afebrile during hospitalization. It is believed patient's hypotension and shock on admission is most likely in setting of severe dehydration. Patient was treated with aggressive bowel regimen and IV hydration. Gradually Levophed was weaned off and patient was started on oral midodrine. Antibiotics were stopped and he was monitored for 24 hours. Patient remained hemodynamically stable and afebrile off Levophed on midodrine. He continued to work well with physical therapy. He has been discharged back to SNF for further rehabitation on oral midodrine 5 mg 3 times a day with aggressive bowel regimen. Physical Exam Narrative: General: No acute distress, AO x3, cachectic, chronically sick appearing, dry oral cavity HEENT: PERRLA, pupils bilaterally equal and reactive Chest: Normal vesicular breath sounds, no added sounds, equal good air entry bilaterally CVS: S1-S2 regular, no murmurs, no tachycardia, no gallops, no rubs Abdomen: Soft, nontender, no organomegaly, bowel sounds present Neuro: No focal deficits, no facial deformity, AO x3, power 5/5 in all limbs Skin: Bilateral knee abrasion as seen in the pictures below, multiple superficial scabbed lesion on bilateral toes Skin: OTHER: Right knee Left knee Urinary Catheter Management: Coude: Cath Placed During This Visit: yes Reason for Continuing Indwelling Catheter: Accurate Measurement of Urinary Output in Critically Ill Patients Urinary Catheter Date of Insertion: 01/30/23 Urinary Catheter Time of Insertion: 22:00 Discharge Data Studies Completed and Pending Completed Studies During Hospitalization Category Date Time Status CT chest abdomen pelvis [[place] [id number] Cat Scan 01/30/23 21 :07 Completed ] Routine CT head wo con* [id number] Stat Cat Scan 01/30/23 17:25 Completed XR chest 1V portable [id number] Stat Exams 01/30/23 17:15 Completed Pending at discharge Category Date Time Status Blood Culture Stat Lab 01/30/23 18:12 Results Occult Blood Stool [Immunochemical Fecal OCB] Routine Lab 01/30/23 21:07 Uncollected US venous duplex upper extremity LT [CV venous duplex Ultrasound 02/02/23 17:[place] [id number]] Routine Radiology Impressions Chest X-Ray 01/30/23 17:15 IMPRESSION: No acute findings. Unchanged exam. Head CT 01/30/23 17:25 IMPRESSION: No acute intracranial abnormality. Unchanged exam. Chest/Abdomen/Pelvis CT 01/30/23 21:07 IMPRESSION: 1. Stable appearance of fibrotic change at the lung bases. No acute superimposed pneumonia to explain patient's sepsis. 2. Unchanged right lateral 8th and 9th rib acute fractures. Numerous additional old healed fractures are noted. IMPRESSION: 1. Etiology of patient's sepsis is unclear. There is mild edema surrounding the duodenum, and there is new gastric edema which could reflect gastroenteritis, but this is unlikely to be an etiology of sepsis. There is no evidence of renal obstruction or small bowel obstruction. A normal appendix is confirmed. 2. There is very large volume retained fecal debris throughout colon compatible with severe constipation. 3. 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 No bony destructive change is visible. Laboratory Results WBC 9.37 10^3/uL (3.29-11.43) 02/03/23 05:05 RBC 2.90 10^6/uL (3.85-5.65) L 02/03/23 05:05 Hgb 8.50 g/dL (11.27-16.99) L 02/03/23 05:05 Hct 25.7 % (37-53) L 02/03/23 05:05 MCV 88.6 fl (82-101) 02/03/23 05:05 MCH 29.3 pg (27-33) 02/03/23 05:05 MCHC 33.1 g/dL (30-55) 02/03/23 05:05 RDW 13.6 % (12.1-15.1) 02/03/23 05:05 Plt Count 276 10^3/cmm (157-399) 02/03/23 05:05 MPV 10.0 fL (7.4-10.4) 02/03/23 05:05 Neut % (Auto) 76.5 % 02/03/23 05:05 Lymph % (Auto) 10.0 % 02/03/23 05:05 Miller % (Auto) 9.4 % 02/03/23 05:05 Eos % (Auto) 2.7 % 02/03/23 05:05 Baso % (Auto) 0.7 % 02/03/23 05:05 Neut # (Auto) 7.16 10^3/uL (1.8-7.7) 02/03/23 05:05 Lymph # (Auto) 0.9 10^3/uL (0.8-4.8) 02/03/23 05:05 Miller # (Auto) 0.9 10^3/uL (0.2-0.9) 02/03/23 05:05 Eos # (Auto) 0.3 10^3/uL (0.0-0.8) 02/03/23 05:05 Baso # (Auto) 0.1 10^3/uL (0.0-0.1) 02/03/23 05:05 Nucleated RBC % (auto) 0 % 02/03/23 05:05 Nucleated RBCs # 0.0 /100WBC 02/03/23 05:05 PT 14.40 SECONDS (12.1-14.9) 01/30/23 18:05 INR 1.08 (0.8-1.2) 01/30/23 18:05 Sodium 140 mmol/L (136-145) 02/03/23 05:05 Potassium 4.9 mmol/L (3.5-5.1) 02/03/23 05:05 Chloride 109 mmol/L (98-107) H 02/03/23 05:05 Carbon Dioxide 25 mmol/L (22-29) 02/03/23 05:05 Anion Gap 10.9 (5-19) 02/03/23 05:05 BUN 11 mg/dL (8-23) 02/03/23 05:05 Creatinine 0.8 mg/dL (0.7-1.2) 02/03/23 05:05 GFR Calculation Not Reportable 02/03/23 05:05 Glucose 99 mg/dL (65-115) 02/03/23 05:05 POC Glucose 168 mg/dL (70-110) H 01/30/23 23:29 Calculated Osmolality 289 mOsm/kg (285-295) 02/03/23 05:05 Lactic Acid 1.0 mmol/L (0.5-2.2) 01/30/23 18:05 Calcium 9.3 mg/dL (8.5-10.5) 02/03/23 05:05 Phosphorus 3.8 mg/dL (2.5-4.5) 02/03/23 05:05 Magnesium 1.8 mg/dL (1.7-2.3) 02/03/23 05:05 Total Bilirubin 0.2 mg/dL (0.15-1.2) 02/03/23 05:05 AST 35 U/L (0-40) 02/03/23 05:05 ALT 43 U/L (0-41) H 02/03/23 05:05 Alkaline Phosphatase 127 U/L (40-130) 02/03/23 05:05 Creatine Kinase 74 U/L (39-308) 01/30/23 18:05 Total Protein 5.1 g/dL (6.6-8.7) L 02/03/23 05:05 Albumin 2.9 g/dL (3.5-5.2) L 02/03/23 05:05 Globulin 2.2 g/dL (1.3-4.6) 02/03/23 05:05 Procalcitonin 0.21 ng/mL (0-0.5) 01/30/23 18:05 TSH 8.53 uIU/mL (0.27-4.20) H 01/30/23 18:05 Free T4 1.18 ng/dL (0.82-1.77) 01/30/23 18:04 Free T3 2.4 PG/ML (2.0-4.4) 01/30/23 18:04 Random Cortisol 20.64 ug/dL (2.47-19.5) H 01/30/23 18:05 Urine Color Yellow (Yellow) 01/30/23 19:53 Urine Appearance Clear (CLEAR) 01/30/23 19:53 Urine pH 5 (5-7) 01/30/23 19:53 Ur Specific [place] 1.005 (1.005-1.030) 01/30/23 19:53 Urine Protein Neg (Negative) 01/30/23 19:53 Urine Glucose (UA) Norm (Normal) 01/30/23 19:53 Urine Ketones Negative (Negative) 01/30/23 19:53 Urine Blood Neg (Negative) 01/30/23 19:53 Urine Nitrate Negative (Negative) 01/30/23 19:53 Urine Bilirubin Neg (Negative) 01/30/23 19:53 Urine Urobilinogen Neg mg/dL (Negative) 01/30/23 19:53 Ur Leukocyte Esterase Negative (Negative) 01/30/23 19:53 Ur Eosinophil Smear 0 (0-0) 01/30/23 22:29 Urine Eosinophils No eosinophils seen 01/30/23 22:29 Ur Random Sodium 85 mmol/L 01/30/23 22:29 Ur Random Potassium 24 mmol/L 01/30/23 22:29 Ur Random Chloride 95 mmol/L 01/30/23 22:29 Urine Creatinine 17 mg/dL (39-259) L 01/30/23 22:29 Vancomycin Trough 5.3 ug/mL (10-15) L 02/02/23 03:07 Ethyl Alcohol < 10 mg/dL (0-10) 01/30/23 18:05 MRSA (PCR) Not detected (NOT DETECTED) 01/30/23 09:15 Vitals Last Vital Signs Temp 98 F 02/03/23 05:00 Pulse 78 02/03/23 06:00 Resp 19 H 02/03/23 07:30 BP 109/60 02/03/23 06:00 Pulse Ox 91 02/03/23 07:30 O2 Del Method Room Air 02/03/23 03:00 O2 Flow Rate 2 02/01/23 05:45 FiO2 21 01/31/23 06:00 Discharge Plan Discharge Patient Disposition: Xfer SNF Condition: Serious Prescriptions: New Stool Softener-Laxative 8.6-50 mg Tablet 2 tab PO BID Qty: 14 0RF midodrine 5 mg Tablet 5 mg PO TID 30 Days Qty: 90 0RF Continued ferrous sulfate 325 mg (65 mg iron) tablet 325 mg PO BID@0800,1999 [id number] oil-vit D3 300-1,000-1,000 mg-mg-unit capsule 1 cap PO DAILY@0800 magnesium 200 mg tablet 400 mg PO DAILY@0800 saw palmetto 500 mg capsule 500 mg PO BID@0800,1999 selenium 100 mcg tablet 100 mcg PO DAILY@0800 glucosamine HCl 750 mg tablet 1,500 mg PO DAILY@0800 artificial saliva (yerbas-lyt) Aerosol,[place] 1 spray mucous membrane Q4H PRN (Reason: dry mouth) Qty: 59 3RF Rx Instructions: administer while awake (DME) Custom inserts or similar See Rx Instructions .Route .MEDSUPPLY Qty: 1 0RF Rx Instructions: to folic acid 1 mg tablet 1 mg PO DAILY@0800 Qty: 90 1RF sulfasalazine 500 mg tablet 0.5 g PO BID@0800,1999 Qty: 180 1RF Rx Instructions: give with food (meal/snack) Multivitamin 50 Plus Tablet 1 tab PO DAILY@0800 Biotene Dry Mouth Oral Rinse liquid 15 ml PO 5XD MDD 5 PRN (Reason: Dry Mouth) Dry Eye Relief 2 drp eye-both PRN PRN (Reason: Dry Eyes) Metamucil 3.4 g PO 3XD PRN (Reason: Constipation) aspirin 81 mg Tablet,Delayed Release (Dr/Ec) 81 mg PO DAILY 30 Days Qty: 30 0RF atorvastatin 40 mg Tablet 40 mg PO BEDTIME 30 Days Qty: 30 0RF hydrocodone-acetaminophen 5-325 mg Tablet 1 tab PO Q6H PRN (Reason: Moderate Pain) 7 Days Qty: 28 0RF Dulcolax (bisacodyl) 10 mg Suppository 10 mg OR DAILY PRN (Reason: Constipation) Fleet Enema 19-7 gram/118 mL Enema 118 ml OR DAILY PRN (Reason: Constipation) doxycycline hyclate 100 mg tablet 100 mg PO BID 3 Days Qty: 6 0RF Changed Milk of Magnesia 400 mg/5 mL Suspension 30 ml PO DAILY Qty: 600 0RF Discontinued amoxicillin-pot clavulanate 875-125 mg tablet 1 tab PO BID 5 Days Qty: 10 0RF No Action hydroxychloroquine 200 mg tablet 200 mg PO BID Qty: 180 2RF Discharge Orders: Discharge Order (Routine); Ordered 02/03/23 Ordered By: Mango Lau Referrals: [facility] [Outside] Barrie Bhatt DO [Primary Care Provider] - Discharge Diet: Regular Discharge Activity: Resume usual activity and Increase activity as tolerated Patient Instructions: Constipation - Adult, Laxative, Stool Softeners (By mouth) (Doculax, Colace, Colace Clear, DSS), Midodrine (By mouth), Acute Kidney Injury (DC), Rhabdomyolysis (DC), Fall Prevention for Older Adults (DC), Sepsis (DC), Fall Prevention (DC), Opioid Safety Activity Restrictions/Additional Instructions: Dysphagia level 5/ mechanical soft diet. Please maintain hydration with at least 2 to 2-1/2 L of liquid daily. Midodrine 5 mg 3 times a day has been added to your medication list. Please check your blood pressure daily and maintain a blood pressure diary. Discharge Attestations Time Spent in Discharge Care*: greater than 30 min Specific Discharge Activities: educating patient, discussing with pcp/other providers, discussing with case therapist/social workers/dc planners, documenting/other paperwork and evaluating patient/reviewing data Status at Discharge: Cognitive status at discharge: cognitively intact , Behavioral status at discharge: cooperative , Functional status at discharge: other assisted ambulation , Overall status at discharge: patient is progressing back to baseline Quality Metrics Clinical Quality Measures [ No reported AMI, CVA or VTE this stay] Coding Level of Care Code 47985 Total time (in minutes) for Discharge: 50 Diagnoses Shock R57.9 Acute kidney injury N17.9 Acute on chronic anemia D64.9 Anorexia R63.0 Physical deconditioning R53.81 Recurrent falls R29.6 Primary Sjogren's syndrome M35.00 History of Hodgkin's lymphoma Z85.71 Abrasion of knee, bilateral S80.211A; S80.212A Decubitus ulcer L89.90
[2023-02-03] MEDS: midodrine 5 mg TABLET PO (09:02)
[2023-02-03] MEDS: aspirin 81 mg EC Tablet PO (09:02)
[2023-02-03] MEDS: heparin 5,000 unit/mL INJ 1 mL 5000 UNIT SUBCUT (09:03)
[2023-02-03] MEDS: sennosides-docusate Tablet 2 TAB PO (09:03)
[2023-02-03] MEDS: sulfaSALAzine 500 mg Tablet PO (09:16)
[2023-02-03 11:20] LABS: SARS Covid-2 Antigen negative (Negative)
--- NOTE | 2023-02-03 11:56 | PC.NURSE ---
Report called to Azul Shi LPN. All questions answered. Family, Nancy Rivera notified of transfer.
--- NOTE | 2023-02-03 14:00 | PC.NURSE ---
[facility] arrived to transport patient to [facility]. Patient Iv's removed with no complications. Patient able to use urinal after moya catheter removal, 200ml. Patient complaint of 7/10 pain generalized, hydrocodone given, see MAR. Patient belongings including cell phone in [facility] belongings bag with patient. Paper chart left with staff of [employer]. Patient had no questions or complaints at the time of transport. Discharge instructions, meds and transfer back to [facility] discussed with patient at length, patient daughter also called and updated on plan of care.
== END 2023-02-03 14:06 | disposition skilled nursing facility (03) | DRG 640 ==
LOC: ER 18:00 → ICU 21:23
PROVIDERS: Emergency Medicine; Admitting Provider Student in an Organized Health Care Education/Training Program; Emergency Provider Emergency Medicine; PCP Internal Medicine; Visit Provider Student in an Organized Health Care Education/Training Program
DX: E86.0 Dehydration (principal); R57.1 Hypovolemic shock; C81.90 Hodgkin lymphoma, unspecified, unspecified site; N17.9 Acute kidney failure, unspecified; E44.0 Moderate protein-calorie malnutrition; E87.1 Hypo-osmolality and hyponatremia; D64.9 Anemia, unspecified; Z85.72 Personal history of non-Hodgkin lymphomas; M05.89 Other rheumatoid arthritis with rheumatoid factor of multiple sites; Z79.899 Other long term (current) drug therapy; F10.10 Alcohol abuse, uncomplicated; Z68.24 Body mass index [BMI] 24.0-24.9, adult; K59.00 Constipation, unspecified; Z79.82 Long term (current) use of aspirin; Z79.891 Long term (current) use of opiate analgesic; K52.9 Noninfective gastroenteritis and colitis, unspecified; Z96.641 Presence of right artificial hip joint; Z96.611 Presence of right artificial shoulder joint; G62.9 Polyneuropathy, unspecified; Z77.090 Contact with and (suspected) exposure to asbestos; Z87.891 Personal history of nicotine dependence; Z86.73 Personal history of transient ischemic attack (TIA), and cerebral infarction without residual deficits; L89.151 Pressure ulcer of sacral region, stage 1; S80.212A Abrasion, left knee, initial encounter; S80.211A Abrasion, right knee, initial encounter; X58.XXXA Exposure to other specified factors, initial encounter
CPT/HCPCS: 36415; 36416; 51702; 70450; 71045; 71250; 74176; 80053; 80202; 80307; 81003; 82436; 82533; 82550; 82570; 82962; 83605; 83735; 84100; 84133; 84145; 84300; 84439; 84443; 84481; 85025; 85610; 85999; 86403; 87040; 87426; 87641; 93005; 93971; 94664; 96361; 96372; 96374; 96375; 96376; 97110; 97161; 97165; 97530; 99291; C9113; J1644; J1720; J2270; J2543; J3370; J7030; J7040; J7042; J7050; J7060

== ENCOUNTER 2023-02-23 10:27 | Inpatient (IN) | payer MEDICARE, SELFPAY ==
[2023-02-23] VITALS (126 sets, daily range): BP systolic 67–130; BP diastolic 38–74; PULSE 67–121; RESP 14–45; TEMP 36.4–37.1; O2SAT 81–100; BMI 25.6
--- NOTE | 2023-02-23 10:40 | XRR_ITS ---
PROCEDURE INFORMATION: Exam: XR Chest Exam date and time: 02/23/2023 11:12 AM Age: 77 years old Clinical indication: Other: Weakness TECHNIQUE: Imaging protocol: Radiologic exam of the chest. Views: 1 view. COMPARISON: [place] [id number] 01/31/2023 2:01 AM FINDINGS: Lungs: Suspect small focal infiltrate in the left lateral base. Pleural spaces: Right-sided pleural based opacity is again seen and correlates with the previous CT finding. There is probable scarring or fibrosis in the right costophrenic angle. Heart/Mediastinum: Unremarkable. No cardiomegaly. Bones/joints: There is a left shoulder prosthesis. XR/XR chest 1V portable [id number] IMPRESSION: 1. Stable nonacute findings as described above. 2. Suspect small focal infiltrate in the left lateral base.
--- NOTE | 2023-02-23 10:42 | ECG_ITS ---
[facility] Test Date: 2023-02-23 Pat Name: Peng Cooper Department: Room: Gender: Male [employer]inter: : 1945 Requested By: Danny Stone Order Number: [id number] Gena MD: Tod Camp M.D. Measurements Intervals [place] Rate: 113 P: 25 AL: 174 QRS: 19 QRSD: 108 T: 42 QT: 338 QTc: 464 Interpretive Statements SINUS TACHYCARDIA ABNORMAL RHYTHM ECG Compared to ECG 01/30/2023 17:52:23 Sinus rhythm no longer present Incomplete right bundle-branch block no longer present Electronically Signed On 02-23-2023 16:48:10 CDT by Tod Camp M.D. [id number]
[2023-02-23] MEDS: pantoprazole 40 mg SDV 80 MG IVP (10:43)
[2023-02-23 10:47] LABS: Basophils % 0.1 %; Eosinophils % 0.3 %; Lymphocytes # 1.6 10^3/uL (0.8-4.8); Mean Corpuscular HGB Conc 31.6 g/dL (30-55); Mean Corpuscular Hemoglobin 30.2 pg (27-33); Mean Corpuscular Volume 95.7 fl (82-101); Monocytes # 1.4 10^3/uL (0.2-0.9); Monocytes % 8.7 %; Neutrophils # 12.52 10^3/uL (1.8-7.7); Neutrophils % 79.7 %; Nucleated Red Blood Cells # 0.3 /100WBC; Nucleated Red Blood Cells % 1.7 %; Platelet Count 189 10^3/cmm (157-399); Red Blood Count 1.39 10^6/uL (3.85-5.65); Red Cell Distribution Width 16.4 % (12.1-15.1); White Blood Count 15.71 10^3/uL (3.29-11.43)
--- NOTE | 2023-02-23 10:47 | PC.PHAR ---
pt here from [facility] - nurse Christiana states pt had morning medications and prn zofran
--- NOTE | 2023-02-23 10:51 | W.ED.NAVMDI ---
Documented by User: Danny Stone MD 02/23/23 10:55 HPI - Nausea/Vomiting/Diarrhea General: Chief complaint: Nausea/Vomiting/Diarrhea Stated complaint: low bp, possilbe sepsis Time Seen by Provider: 02/23/23 10:27 Source: patient and EMS Mode of arrival: EMS Limitations: no limitations History of Present Illness: 77-year-old male is here from care home he states that overnight he has been having vomiting states he has been feeling extremely weak he is also been having black tarry stools. retirement states that he was hypotensive this morning in the 80s here his blood pressure 74/48. He states he feels very weak he denies any abdominal pain he has been having black tarry stools denies vomiting any blood. Associated nausea: Yes Associated symtoms: Reports fatigue, malaise and nausea; Denies chest pain, dysuria or headache(s) Review of Systems Const: Reports: fatigue and malaise; Denies: fever(s) or chills ENMT: Denies: throat pain or dental pain Card: Denies: chest pain Resp: Denies: dyspnea GI: Reports: nausea, vomiting and change in stool character; Denies: abdominal pain or diarrhea : Denies: dysuria Musc: Denies: neck pain or back pain Skin/Breast: Denies: rash Neuro: Denies: headache(s) PFSH ED PFSH: Medical History Acute CVA (cerebrovascular accident) Alcohol abuse Ex-smoker for more than 1 year History of exposure to asbestos History of Hodgkin's lymphoma diagnosed in 2013, treated with ABVD with good result History of PFTs Immunosuppression Iron deficiency anemia Marginal zone lymphoma identified in 2020 and 2021, observant management Neuropathy Onychomycosis Osteoarthritis Peripheral neuropathy Primary Sjogren's syndrome Recurrent falls Rib fractures Right knee meniscal tear Seropositive rheumatoid arthritis of multiple joints Thoracic outlet syndrome Weight loss Surgical History History of arthroplasty of left shoulder History of arthroplasty of right hip History of revision of total replacement of right hip joint Status post colonoscopy Status post surgery Bilateral chest surgery for thoracic outlet syndrome Family History Other Cancer Dementia Diabetes Denies family history of CAD (coronary artery disease) Clotting disorder Hyperlipidemia Psychiatric illness Chronic kidney disease (CKD) Suicide Anesthesia complication Bleeding disorder Lung disease Hypertension Stroke Social History Smoking and tobacco/nicotine status: former use of tobacco/nicotine Quit status (tobacco/nicotine): has quit using tobacco Year quit tobacco: 2010 [id number] Second hand smoke exposure: No Alcohol intake: current Alcohol intake frequency: 0-2 Drinks per Day Alcohol type: beer Substance/Drug Use: never Caregiver/support person: No Lives independently: No Household members: other Housing: [facility] Marital status: / service: No Current occupational status: retired Pets and animals: Yes Do you think of yourself as: Straight/Heterosexual Current gender identity: Male Physical Exam Const: COMMON NORMALS: patient oriented x3 GENERAL APPEARANCE: ill appearing HENMT: COMMON NORMALS: normocephalic and atraumatic HEAD & SCALP: normocephalic and atraumatic Neck/C-Spine: COMMON NORMALS: full ROM Chest: COMMONS NORMALS: normal inspection of the chest Resp: COMMON NORMALS: normal respiratory effort Cardio: COMMON NORMALS: regular rhythm and No murmurs present (Cardio) RATE: tachycardic RHYTHM: regular rhythm GI: COMMON NORMALS: Normal to inspection, nondistended, normoactive bowel sounds present, Soft to palpation, non-tender and no masses PALPATION: Yes Soft to palpation OTHER: Rectal exam showed black stools that is Hemoccult positive Extremity: COMMON NORMALS: normal to inspection and full ROM Neuro: COMMON NORMALS: patient oriented x3, moves all extremities and no focal motor deficits Psych: COMMON NORMALS: mental status grossly normal, Normal thought process present and cooperative THOUGHT PROCESS: Normal thought process present Skin: COMMON NORMALS: no rashes or lesions noted and no wounds GENERAL SKIN EXAM: no rashes or lesions noted Course Vital Signs: Vital signs: Vital Signs Temperature 98.6 F 02/23/23 11:43 Pulse Rate 95 02/23/23 12:50 Respiratory Rate 16 02/23/23 12:50 Blood Pressure 103/60 02/23/23 12:50 Pulse Oximetry 100 02/23/23 12:50 Oxygen Delivery Me thod Nasal Cannula 02/23/23 11:34 Oxygen Flow Rate 5 02/23/23 11:34 MDM - Nausea/Vomiting/Diarrhea Lab Data 02/23/23 10:35 02/23/23 10:35 Radiology Impressions Chest X-Ray 02/23/23 12:32 IMPRESSION: As above. Laboratory Results WBC 15.71 10^3/uL (3.29-11.43) H 02/23/23 10:35 RBC 1.39 10^6/uL (3.85-5.65) L 02/23/23 10:35 Hgb 4.20 g/dL (11.27-16.99) L* 02/23/23 10:35 Hct 13.3 % (37-53) L* 02/23/23 10:35 MCV 95.7 fl (82-101) 02/23/23 10:35 MCH 30.2 pg (27-33) 02/23/23 10:35 MCHC 31.6 g/dL (30-55) 02/23/23 10:35 RDW 16.4 % (12.1-15.1) H 02/23/23 10:35 Plt Count 189 10^3/cmm (157-399) 02/23/23 10:35 MPV 11.0 fL (7.4-10.4) H 02/23/23 10:35 Neut % (Auto) 79.7 % 02/23/23 10:35 Lymph % (Auto) 10.0 % 02/23/23 10:35 [place] % (Auto) 8.7 % 02/23/23 10:35 Eos % (Auto) 0.3 % 02/23/23 10:35 Baso % (Auto) 0.1 % 02/23/23 10:35 Neut # (Auto) 12.52 10^3/uL (1.8-7.7) H 02/23/23 10:35 Lymph # (Auto) 1.6 10^3/uL (0.8-4.8) 02/23/23 10:35 [place] # (Auto) 1.4 10^3/uL (0.2-0.9) H 02/23/23 10:35 Eos # (Auto) 0.0 10^3/uL (0.0-0.8) 02/23/23 10:35 Baso # (Auto) 0.0 10^3/uL (0.0-0.1) 02/23/23 10:35 Nucleated RBC % (auto) 1.7 % 02/23/23 10:35 Nucleated RBCs # 0.3 /100WBC 02/23/23 10:35 PT 15.10 SECONDS (12.1-14.9) H 02/23/23 10:35 INR 1.15 (0.8-1.2) 02/23/23 10:35 Sodium 137 mmol/L (136-145) 02/23/23 10:35 Potassium 5.1 mmol/L (3.5-5.1) 02/23/23 10:35 Chloride 100 mmol/L (98-107) 02/23/23 10:35 Carbon Dioxide 24 mmol/L (22-29) 02/23/23 10:35 Anion Gap 18.1 (5-19) 02/23/23 10:35 BUN 54 mg/dL (8-23) H 02/23/23 10:35 Creatinine 1.2 mg/dL (0.7-1.2) 02/23/23 10:35 GFR Calculation Not Reportable 02/23/23 10:35 Glucose 142 mg/dL (65-115) H 02/23/23 10:35 Calculated Osmolality 301 mOsm/kg (285-295) H 02/23/23 10:35 Lactic Acid 4.6 mmol/L (0.5-2.2) H* 02/23/23 10:35 Calcium 9.0 mg/dL (8.5-10.5) 02/23/23 10:35 Total Bilirubin 0.3 mg/dL (0.15-1.2) 02/23/23 10:35 AST 41 U/L (0-40) H 02/23/23 10:35 ALT 33 U/L (0-41) 02/23/23 10:35 Alkaline Phosphatase 63 U/L (40-130) 02/23/23 10:35 Total Protein 5.5 g/dL (6.6-8.7) L 02/23/23 10:35 Albumin 3.3 g/dL (3.5-5.2) L 02/23/23 10:35 Globulin 2.2 g/dL (1.3-4.6) 02/23/23 10:35 Lipase 106 U/L (13-60) H 02/23/23 10:35 Blood Type B Positive 02/23/23 10:35 Rho(D) Type Positive 02/23/23 10:35 Antibody Screen Negative 02/23/23 10:35 Crossmatch See Detail 02/23/23 10:35 Discharge Plan Discharge Patient Disposition: Admitted As Inpatient Clinical Impression: Acute upper GI bleeding, Anemia Condition: Stable Prescriptions: No Action ferrous sulfate 325 mg (65 mg iron) tablet 325 mg PO BID@0800,1999 ns-1-dql-epa-fish oil-vit D3 300-1,000-1,000 mg-mg-unit capsule 1 cap PO DAILY@0800 magnesium 200 mg tablet 400 mg PO DAILY@0800 saw palmetto 500 mg capsule 500 mg PO BID@0800,1999 selenium 100 mcg tablet 100 mcg PO DAILY@0800 glucosamine HCl 750 mg tablet 1,500 mg PO DAILY@0800 artificial saliva (yerbas-lyt) Aerosol,[place] 1 spray mucous membrane Q4H PRN (Reason: dry mouth) Qty: 59 3RF Rx Instructions: administer while awake (DME) Custom inserts or similar See Rx Instructions .Route .MEDSUPPLY Qty: 1 0RF Rx Instructions: to folic acid 1 mg tablet 1 mg PO DAILY@0800 Qty: 90 1RF sulfasalazine 500 mg tablet 0.5 g PO BID@0800,1999 Qty: 180 1RF Rx Instructions: give with food (meal/snack) hydroxychloroquine 200 mg tablet 200 mg PO BID Qty: 180 2RF Multivitamin 50 Plus Tablet 1 tab PO DAILY@0800 aspirin 81 mg Tablet,Delayed Release (Dr/Ec) 81 mg PO DAILY 30 Days Qty: 30 0RF atorvastatin 40 mg Tablet 40 mg PO BEDTIME 30 Days Qty: 30 0RF bisacodyl [Dulcolax (bisacodyl)] 10 mg Suppository 10 mg ME DAILY PRN (Reason: Constipation) Fleet Enema 19-7 gram/118 mL Enema 118 ml ME DAILY PRN (Reason: Constipation) sennosides-docusate sodium [Stool Softener-Laxative] 8.6-50 mg Tablet 2 tab PO BID Qty: 14 0RF midodrine 5 mg Tablet 5 mg PO TID 30 Days Qty: 90 0RF magnesium hydroxide [Milk of Magnesia] 400 mg/5 mL Suspension 30 ml PO DAILY Qty: 600 0RF hydrocodone-acetaminophen 5-325 mg tablet 1 tab PO Q6H PRN (Reason: pain) GlycoLax 17 gram/dose Powder 4 g PO DAILY Dry Eye Relief 1-0.2-0.2 % Drops 2 drp OPHTHALMIC (EYE) DAILY PRN (Reason: Dry Eye(S)) Biotene Dry Mouth Oral Rinse Mouthwash 15 ml MUCOUS MEMBRANE 5XD PRN (Reason: Dry Mouth) Rx Instructions: swish for 15-30 secs , then spit out; do not swallow Zofran 8 mg Tablet 8 mg PO Q6H PRN (Reason: Nausea And Vomiting) Referrals: Barrie Bhatt DO [Primary Care Provider] - Coding Level of Care Code ED Internal Audit Director for Chg Fwd Documented by User: Jama Clifford DO 02/23/23 13:39 HPI - Nausea/Vomiting/Diarrhea General: Chief complaint: Nausea/Vomiting/Diarrhea Stated complaint: low bp, possilbe sepsis Time Seen by Provider: 02/23/23 10:27 PFSH ED PFSH: Medical History Acute CVA (cerebrovascular accident) Alcohol abuse Ex-smoker for more than 1 year History of exposure to asbestos History of Hodgkin's lymphoma diagnosed in 2013, treated with ABVD with good result History of PFTs Immunosuppression Iron deficiency anemia Marginal zone lymphoma identified in 2020 and 2021, observant management Neuropathy Onychomycosis Osteoarthritis Peripheral neuropathy Primary Sjogren's syndrome Recurrent falls Rib fractures Right knee meniscal tear Seropositive rheumatoid arthritis of multiple joints Thoracic outlet syndrome Weight loss Surgical History History of arthroplasty of left shoulder History of arthroplasty of right hip History of revision of total replacement of right hip joint Status post colonoscopy Status post surgery Bilateral chest surgery for thoracic outlet syndrome Family History Other Cancer Dementia Diabetes Denies family history of CAD (coronary artery disease) Clotting disorder Hyperlipidemia Psychiatric illness Chronic kidney disease (CKD) Suicide Anesthesia complication Bleeding disorder Lung disease Hypertension Stroke Social History Smoking and tobacco/nicotine status: former use of tobacco/nicotine Quit status (tobacco/nicotine): has quit using tobacco Year quit tobacco: 2010 [id number] Second hand smoke exposure: No Alcohol intake: current Alcohol intake frequency: 0-2 Drinks per Day Alcohol type: beer Substance/Drug Use: never Caregiver/support person: No Lives independently: No Household members: other Housing: [facility] Marital status: / service: No Current occupational status: retired Pets and animals: Yes Do you think of yourself as: Straight/Heterosexual Current gender identity: Male Procedures Central Line Placement Right IJ: Time Out Performed: Yes Patient Placed on Monitor/Pulse Ox: Yes Prep: mask, gown and gloves Central Line Prep: Chlorhexidine scrub Local Anesthetic: lidocaine 1% Amount of anesthesia used (mL): 4 Ultrasound Used for Placement: Yes Central Line Lumen Inserted: triple Post Procedure: sutured in place, good blood return (Brown port does not draw but flushes well. When retracted slightly it will draw), all ports aspirated, flushed, capped and sterile dressing applied Post Procedure X-Ray: tip of catheter in good position Patient Tolerated Procedure: well Complications: none Course Vital Signs: Vital signs: Vital Signs Temperature 98.6 F 02/23/23 11:43 Pulse Rate 95 02/23/23 12:50 Respiratory Rate 16 02/23/23 12:50 Blood Pressure 103/60 02/23/23 12:50 Pulse Oximetry 100 02/23/23 12:50 Oxygen Delivery Me thod Nasal Cannula 02/23/23 11:34 Oxygen Flow Rate 5 02/23/23 11:34 MDM - Nausea/Vomiting/Diarrhea Medical Decision Making Care assumed from Dr. Stone at change of shift. Significant anemia based on labs and physical exam findings likely upper GI bleed no evidence of esophageal bleed. Will admit he has received crystalloid and 2 units of packed red blood cells blood pressures up to 108 systolic his vital signs are otherwise stable central line placed because of large number of medicines need to be infused and we did not have enough access points. Discussed with hospitalist and with general surgery will admit to hospitalist consult general surgery for EGD. Medical Records I reviewed the patient's medical records. Lab Data I reviewed the patient's lab results. 02/23/23 10:35 02/23/23 10:35 Radiology Impressions Chest X-Ray 02/23/23 12:32 IMPRESSION: As above. Laboratory Results WBC 15.71 10^3/uL (3.29-11.43) H 02/23/23 10:35 RBC 1.39 10^6/uL (3.85-5.65) L 02/23/23 10:35 Hgb 4.20 g/dL (11.27-16.99) L* 02/23/23 10:35 Hct 13.3 % (37-53) L* 02/23/23 10:35 MCV 95.7 fl (82-101) 02/23/23 10:35 MCH 30.2 pg (27-33) 02/23/23 10:35 MCHC 31.6 g/dL (30-55) 02/23/23 10:35 RDW 16.4 % (12.1-15.1) H 02/23/23 10:35 Plt Count 189 10^3/cmm (157-399) 02/23/23 10:35 MPV 11.0 fL (7.4-10.4) H 02/23/23 10:35 Neut % (Auto) 79.7 % 02/23/23 10:35 Lymph % (Auto) 10.0 % 02/23/23 10:35 [place] % (Auto) 8.7 % 02/23/23 10:35 Eos % (Auto) 0.3 % 02/23/23 10:35 Baso % (Auto) 0.1 % 02/23/23 10:35 Neut # (Auto) 12.52 10^3/uL (1.8-7.7) H 02/23/23 10:35 Lymph # (Auto) 1.6 10^3/uL (0.8-4.8) 02/23/23 10:35 [place] # (Auto) 1.4 10^3/uL (0.2-0.9) H 02/23/23 10:35 Eos # (Auto) 0.0 10^3/uL (0.0-0.8) 02/23/23 10:35 Baso # (Auto) 0.0 10^3/uL (0.0-0.1) 02/23/23 10:35 Nucleated RBC % (auto) 1.7 % 02/23/23 10:35 Nucleated RBCs # 0.3 /100WBC 02/23/23 10:35 PT 15.10 SECONDS (12.1-14.9) H 02/23/23 10:35 INR 1.15 (0.8-1.2) 02/23/23 10:35 Sodium 137 mmol/L (136-145) 02/23/23 10:35 Potassium 5.1 mmol/L (3.5-5.1) 02/23/23 10:35 Chloride 100 mmol/L (98-107) 02/23/23 10:35 Carbon Dioxide 24 mmol/L (22-29) 02/23/23 10:35 Anion Gap 18.1 (5-19) 02/23/23 10:35 BUN 54 mg/dL (8-23) H 02/23/23 10:35 Creatinine 1.2 mg/dL (0.7-1.2) 02/23/23 10:35 GFR Calculation Not Reportable 02/23/23 10:35 Glucose 142 mg/dL (65-115) H 02/23/23 10:35 Calculated Osmolality 301 mOsm/kg (285-295) H 02/23/23 10:35 Lactic Acid 4.6 mmol/L (0.5-2.2) H* 02/23/23 10:35 Calcium 9.0 mg/dL (8.5-10.5) 02/23/23 10:35 Total Bilirubin 0.3 mg/dL (0.15-1.2) 02/23/23 10:35 AST 41 U/L (0-40) H 02/23/23 10:35 ALT 33 U/L (0-41) 02/23/23 10:35 Alkaline Phosphatase 63 U/L (40-130) 02/23/23 10:35 Total Protein 5.5 g/dL (6.6-8.7) L 02/23/23 10:35 Albumin 3.3 g/dL (3.5-5.2) L 02/23/23 10:35 Globulin 2.2 g/dL (1.3-4.6) 02/23/23 10:35 Lipase 106 U/L (13-60) H 02/23/23 10:35 Blood Type B Positive 02/23/23 10:35 Rho(D) Type Positive 02/23/23 10:35 Antibody Screen Negative 02/23/23 10:35 Crossmatch See Detail 02/23/23 10:35 All radiology interpretation(s) finalized by discharge Discharge Plan Discharge Patient Disposition: Admitted As Inpatient Clinical Impression: Acute upper GI bleeding, Anemia Condition: Stable Prescriptions: No Action ferrous sulfate 325 mg (65 mg iron) tablet 325 mg PO BID@0800,1999 me-1-feb-epa-fish oil-vit D3 300-1,000-1,000 mg-mg-unit capsule 1 cap PO DAILY@0800 magnesium 200 mg tablet 400 mg PO DAILY@0800 saw palmetto 500 mg capsule 500 mg PO BID@0800,1999 selenium 100 mcg tablet 100 mcg PO DAILY@0800 glucosamine HCl 750 mg tablet 1,500 mg PO DAILY@0800 artificial saliva (yerbas-lyt) Aerosol,[place] 1 spray mucous membrane Q4H PRN (Reason: dry mouth) Qty: 59 3RF Rx Instructions: administer while awake (DME) Custom inserts or similar See Rx Instructions .Route .MEDSUPPLY Qty: 1 0RF Rx Instructions: to folic acid 1 mg tablet 1 mg PO DAILY@0800 Qty: 90 1RF sulfasalazine 500 mg tablet 0.5 g PO BID@0800,1999 Qty: 180 1RF Rx Instructions: give with food (meal/snack) hydroxychloroquine 200 mg tablet 200 mg PO BID Qty: 180 2RF Multivitamin 50 Plus Tablet 1 tab PO DAILY@0800 aspirin 81 mg Tablet,Delayed Release (Dr/Ec) 81 mg PO DAILY 30 Days Qty: 30 0RF atorvastatin 40 mg Tablet 40 mg PO BEDTIME 30 Days Qty: 30 0RF bisacodyl [Dulcolax (bisacodyl)] 10 mg Suppository 10 mg ME DAILY PRN (Reason: Constipation) Fleet Enema 19-7 gram/118 mL Enema 118 ml ME DAILY PRN (Reason: Constipation) sennosides-docusate sodium [Stool Softener-Laxative] 8.6-50 mg Tablet 2 tab PO BID Qty: 14 0RF midodrine 5 mg Tablet 5 mg PO TID 30 Days Qty: 90 0RF magnesium hydroxide [Milk of Magnesia] 400 mg/5 mL Suspension 30 ml PO DAILY Qty: 600 0RF hydrocodone-acetaminophen 5-325 mg tablet 1 tab PO Q6H PRN (Reason: pain) GlycoLax 17 gram/dose Powder 4 g PO DAILY Dry Eye Relief 1-0.2-0.2 % Drops 2 drp OPHTHALMIC (EYE) DAILY PRN (Reason: Dry Eye(S)) Biotene Dry Mouth Oral Rinse Mouthwash 15 ml MUCOUS MEMBRANE 5XD PRN (Reason: Dry Mouth) Rx Instructions: swish for 15-30 secs , then spit out; do not swallow Zofran 8 mg Tablet 8 mg PO Q6H PRN (Reason: Nausea And Vomiting) Referrals: Barrie Bhatt DO [Primary Care Provider] - Coding Level of Care Code ED Internal Audit Director for Chg Fwraji
[2023-02-23] MEDS: SODIUM CHLORIDE 0.9% 2095.59 ML IV (10:55)
[2023-02-23 10:56] LABS: Hematocrit 13.3 % (37-53)
[2023-02-23 11:03] LABS: INR 1.15 (0.8-1.2)
[2023-02-23 11:12] LABS: Alanine Aminotransferase 33 U/L (0-41); Albumin Level 3.3 g/dL (3.5-5.2); Alkaline Phosphatase 63 U/L (40-130); Blood Urea Nitrogen 54 mg/dL (8-23); Carbon Dioxide 24 mmol/L (22-29); Chloride 100 mmol/L (98-107); Globulin 2.2 g/dL (1.3-4.6); Glucose 142 mg/dL (65-115); Lipase 106 U/L (13-60); Osmolality Calculated 301 mOsm/kg (285-295); Sodium 137 mmol/L (136-145); Total Bilirubin 0.3 mg/dL (0.15-1.2); Total Protein 5.5 g/dL (6.6-8.7)
[2023-02-23 11:13] LABS: Anion Gap 18.1 (5-19); Aspartate Amino Transferase 41 U/L (0-40); Potassium 5.1 mmol/L (3.5-5.1)
[2023-02-23 11:15] LABS: Lactic Sepsis W/Reflex 4.6 mmol/L (0.5-2.2)
--- NOTE | 2023-02-23 12:32 | XRR_ITS ---
PROCEDURE INFORMATION: Exam: XR Chest Exam date and time: 02/23/2023 12:37 PM Age: 77 years old Clinical indication: Device placement; Other: Central line placement; Prior surgery; Surgery date: Post-operative (0-2 days) TECHNIQUE: Imaging protocol: Radiologic exam of the chest. Views: 1 view. COMPARISON: CR XR chest 1V portable [id number] 02/23/2023 11:12 AM FINDINGS: Compared to today's earlier chest x-ray, a right IJ CVC tip is now seen near the floor of the right atrium. Infiltrate is again seen in the left base which appears slightly more prominent. The chest x-ray is otherwise unchanged. XR/XR chest 1V portable [id number] IMPRESSION: As above.
[2023-02-23 12:42] LABS: Reflex Lactate Order REFLEX LACTIC ORDERD
[2023-02-23] MEDS: pantoprazole 40 MG in sodium chloride 0.9% (plus) 100 ML 20 MG IV (12:49)
[2023-02-23 14:07] LABS: Lactic Acid level (Lactate) 1.3 mmol/L (0.5-2.2)
[2023-02-23] MEDS: sodium chloride 0.9% 1,000 ML 100 ML IV (15:07)
--- NOTE | 2023-02-23 16:18 | PC.NURSE ---
Wound assessment: Bilateral knee healing abrasions with scabbing, bilateral phalanges abrasions with scabbing, patient states these are from a previous fall. Medial gluteal cleft has stage two pressure injury, left distal gluteus has what appears to be keloid area.
--- NOTE | 2023-02-23 17:05 | PM.CONSULT ---
Providers/Reason For Consult Consulting Physician/Specialty*: Dr. Edmond Walsh, DO/General surgery Reason for Consult*: GI bleed Attending Physician: Avril Carcamo MD Primary Care Provider: Barrie Bhatt DO History of Present Illness History of Present Illness Peng Cooper is a 77 year old male who presents to the hospital with weakness and tarry black stools. He denies any abdominal pain but does report that he has been having heartburn for the last few days. Just for last few days he has had tarry black stools. He normally has dark stools because of his iron supplement, but this has been black. He denies any nausea or vomiting. Denies any other symptoms. Review of Systems General: Reports: 10 or more systems reviewed and unremarkable except in HPI and below Medications/Allergies Home Medications Medication Instructions Recorded Confirmed Last Taken Type ferrous sulfate 325 mg (65 mg 325 mg PO BID@0800,199906/19/19 02/23/23 02/23/23 History iron) tablet magnesium 200 mg tablet 400 mg PO DAILY@0800 06/19/19 02/23/23 02/23/23 History hq-2-xxa-epa-fish oil-vit D3 300 1 cap PO DAILY@0800 06/19/19 02/23/23 02/23/23 History mg-1,000 mg-1,000 unit capsule saw palmetto 500 mg capsule 500 mg PO BID@0800,199906/19/19 02/23/23 02/23/23 History selenium 100 mcg tablet 100 mcg PO DAILY@0800 06/19/19 02/23/23 02/23/23 History cuqmwbwksyjd-xojwtldp-wtxhfr 1 tab PO DAILY@0800 06/16/20 02/23/23 02/23/23 History tablet (Multivitamin 50 Plus tablet) folic acid 1 mg tablet 1 mg PO DAILY@0800 #90 tabs 09/28/21 02/23/23 02/23/23 Rx artificial saliva (yerba savannah and 1 spray mucous membrane Q4H PRN 01/04/22 02/23/23 01/25/23 Rx lytes) spray dry mouth #59 mL glucosamine HCl 750 mg tablet 1,500 mg PO DAILY@0800 01/04/22 02/23/23 02/23/23 History Custom inserts or similar #1 ea 06/21/22 02/23/23 Unknown Rx hydroxychloroquine 200 mg tablet 200 mg PO BID #180 tabs 10/07/22 02/23/23 02/23/23 Rx sulfasalazine 500 mg tablet 0.5 g PO BID@0800,2000 #180 tabs 10/07/22 02/23/23 02/23/23 Rx aspirin 81 mg tablet,delayed 81 mg PO DAILY 30 days #30 tabs 01/26/23 02/23/23 02/23/23 Rx release atorvastatin 40 mg tablet 40 mg PO BEDTIME 30 days #30 tabs 01/26/23 02/23/23 02/22/23 Rx bisacodyl 10 mg rectal suppository 10 mg OK DAILY PRN Constipation 01/31/23 02/23/23 01/24/23 History (Dulcolax (bisacodyl)) sodium phosphates 19 gram-7 118 ml OK DAILY PRN Constipation 01/31/23 02/23/23 01/24/23 History gram/118 mL enema (Fleet Enema) magnesium hydroxide 400 mg/5 mL 30 ml PO DAILY #600 mL 02/03/23 02/23/23 02/23/23 Rx oral suspension (Milk of Magnesia) midodrine 5 mg tablet 5 mg PO TID 30 days #90 tabs 02/03/23 02/23/23 02/23/23 Rx sennosides 8.6 mg-docusate sodium 2 tab PO BID #14 tabs 02/03/23 02/23/23 02/23/23 Rx 50 mg tablet (Stool Softener-Laxative) hydrocodone 5 mg-acetaminophen 325 1 tab PO Q6H PRN pain 02/23/23 02/23/23 Unknown History mg tablet ondansetron HCl 8 mg tablet 8 mg PO Q6H PRN Nausea And Vomiting 02/23/23 02/23/23 02/23/23 History peg [id number] 1 2 drp ophthalmic (eye) DAILY PRN 02/23/23 02/23/23 Unknown History %-0.2 %-0.2 % eye drops (Dry Eye Dry Eye(S) Relief) polyethylene glycol 3350 17 4 g PO DAILY 02/23/23 02/23/23 02/23/23 History gram/dose oral powder saliva substitute combo no.9 15 ml mucous membrane 5XD PRN Dry 02/23/23 02/23/23 Unknown History (Biotene Dry Mouth Oral Rinse Mouth mouthwash) Allergies Allergy/AdvReac Type Severity Reaction Status Date / Time No Known Allergies Allergy Verified 02/23/23 10:45 Current Medications Generic Name Dose Route Start Last Admin Trade Name Freq PRN Reason Stop Dose Admin Acetaminophen 500 mg 02/23/23 14:58 02/23/23 18:13 Acetaminophen 500 Mg Tablet PO 500 mg Q4H PRN Administration fever Sodium Chloride 1,000 mls @ 100 mls/hr 02/23/23 14:58 02/23/23 18:14 Sodium Chloride 0.9% IV 0 mls/hr .Q10H COLT Infusion Norepinephrine Bitartrate 4 mg 254 mls @ 0 mls/hr 02/23/23 14:58 02/24/23 07:22 / Dextrose IV 6 mcg/min .Q0M COLT 22.86 mls/hr Administration Protocol Per Protocol Pantoprazole Sodium 40 mg 02/23/23 18:00 02/23/23 17:56 Pantoprazole 40 Mg Sdv IVP 40 mg BID COLT Administration Sucralfate 1 gm 02/23/23 18:00 02/23/23 17:56 Sucralfate 1 Gm/10 Ml Oral Liq Udc PO 1 gm BID COLT Administration PFSH Acute PFSH: Medical History Acute CVA (cerebrovascular accident) Alcohol abuse Ex-smoker for more than 1 year History of exposure to asbestos History of Hodgkin's lymphoma diagnosed in 2013, treated with ABVD with good result History of PFTs Immunosuppression Iron deficiency anemia Marginal zone lymphoma identified in 2020 and 2021, observant management Neuropathy Onychomycosis Osteoarthritis Peripheral neuropathy Primary Sjogren's syndrome Recurrent falls Rib fractures Right knee meniscal tear Seropositive rheumatoid arthritis of multiple joints Thoracic outlet syndrome Weight loss Surgical History History of arthroplasty of left shoulder History of arthroplasty of right hip History of revision of total replacement of right hip joint Status post colonoscopy Status post surgery Bilateral chest surgery for thoracic outlet syndrome Family History Other Cancer Dementia Diabetes Denies family history of CAD (coronary artery disease) Clotting disorder Hyperlipidemia Psychiatric illness Chronic kidney disease (CKD) Suicide Anesthesia complication Bleeding disorder Lung disease Hypertension Stroke Social History Smoking and tobacco/nicotine status: former use of tobacco/nicotine Quit status (tobacco/nicotine): has quit using Year quit tobacco: 2010 [id number] Second hand smoke exposure: No Alcohol intake: current Alcohol intake frequency: 0-2 Drinks per Day Alcohol type: beer Substance/Drug Use: never Caregiver/support person: No Lives independently: No Household members: other Housing: Senior Care Marital status: / service: No Current occupational status: retired Pets and animals: Yes Do you think of yourself as: Straight/Heterosexual Current gender identity: Male Vitals/I&O/Wt Last Vital Signs Temp 98.1 F 02/24/23 01:33 Pulse 66 02/24/23 05:24 Resp 16 02/24/23 01:33 BP 108/63 02/24/23 01:33 Pulse Ox 98 02/24/23 01:33 O2 Del Method Nasal Cannula 02/24/23 05:24 O2 Flow Rate 1 02/24/23 05:24 02/23/23 02/24/23 02/24/23 22:59 06:59 14:59 Intake Total 2713.104 / 4808.694 386.563 / 5195.257 Output Total 700 / 700 1000 / 1700 Balance 2013.104 / 4108.694 -613.437 / 3495.257 Weight last 48 hrs Weight 154 lb Physical Exam Narrative: General : Patient is well developed , no acute distress, oriented x3 Head : Normal cephalic, a-traumatic. Ears : Pinnae and external canal are normal. Hearing is normal. Eyes : PERRLA, Sclera and injection are normal. No conjunctival discharge. Nose : Mucous membranes are without erythema. Throat : buccal mucosa is normal, gums are without significant recession or hypertrophy. Lungs : Equal chest rise bilaterally, no use of accessory muscles, trachea is midline. Cor : Rate and rhythm are normal. Abdomen : Soft, ND, NT, no g/r/m Extremities : No edema, no cyanosis or clubbing, dorsalis pedis pulses are present bilaterally, non-tender to palpation of calves. Upper extremities are normal bilaterally. Back : non-tender to palpation, no CVA tenderness. Neuro : CN II - XII intact, Upper and lower extremities have equal and full strength Data 02/24/23 05:11 02/24/23 05:11 Micro: Microbiology 02/23/23 10:53 Blood Culture - Preliminary Blood SPECIMEN COLLECTED 02/23/23 10:50 Blood Culture - Preliminary Blood SPECIMEN COLLECTED A&P Assessment and plan (1) Acute upper GI bleeding: Plan Tomorrow for EGD The risks and benefits of the procedure, including bleeding, infection, intestinal perforation requiring surgery, missed lesion were explained to the patient. The patient is understanding of the risks and wishes to proceed. Coding Level of Care Code 12421 Diagnoses Acute upper GI bleeding K92.2
[2023-02-23] MEDS: sucralfate 1 gm/10 mL Oral Liq UDC PO (17:56)
[2023-02-23] MEDS: pantoprazole 40 mg SDV IVP (17:56)
--- NOTE | 2023-02-23 18:10 | USCV_ITS ---
Peng Cooper Age: 77 Gender: M : 1945 Exam Date: 02/23/2023 19:48 Ordering Phys: Avril Carcamo MD Technologist: JULIA Exam Location: [facility] [place] Indication: fatigue, malaise. evaluate for CHF. No history of cardiac intervention per patient. BP: 93 / 47 HR: 78 Rhythm: Sinus Technical Quality: Adequate MEASUREMENTS (Male / Female) Normal Values 2D ECHO LV Diastolic Diameter PLAX 4.0 cm 4.2 - 5.9 / 3.9 - 5.3 cm LV Systolic Diameter PLAX 2.7 cm IVS Diastolic Thickness 1.2 cm 0.6 - 1.0 / 0.6 - 0.9 cm IVS Systolic Thickness 1.4 cm LVPW Diastolic Thickness 1.3 cm 0.6 - 1.0 / 0.6 - 0.9 cm LVPW Systolic Thickness 1.0 cm LVOT Diameter 2.1 cm LV Ejection Fraction 2D Teich 60.0 % LV Ejection Fraction MOD 2C 51.2 % LV Ejection Fraction 2C AL 50.9 % LA Diameter 3.4 cm LA Width 4.0 cm LA Height 4.9 cm RA Width 4.3 cm RA Height 4.9 cm Aorta at Sinotubular Diameter 3.1 cm IVC Diameter 2.1 cm M-MODE Aortic Annulus Diameter 3.4 cm LA Ao Ratio MM 1.0 MV E Point Septal Separation 0.6 cm DOPPLER AV Peak Velocity 146.0 cm/s LVOT Peak Velocity 86.0 cm/s AV Area Cont Eq vti 2.0 cm squared AV Area Cont Eq pk 2.0 cm squared MV Area PHT 2.6 cm squared Mitral E to A Ratio 0.8 MV E' Velocity 46.5 cm/s Mitral E to MV E' Ratio 7.8 Mitral E to LV E' Lateral Ratio 7.6 Mitral E to LV E' Septal Ratio 7.9 TR Peak Velocity 236.0 cm/s TR Peak Gradient 22.3 mmHg TV Peak E Velocity 58.0 cm/s Right Atrial Pressure 5.0 mmHg Pulmonary Artery Systolic Pressu 27.3 mmHg PV Peak Velocity 142.0 cm/s RV Acceleration Time 0.1 s RV Ejection Time 0.3 s RV AcT/ET 0.2 FINDINGS Left Ventricle Normal left ventricular size and systolic function, EF 59 %. No regional wall motion abnormalities. Grade I/IV diastolic dysfunction (abnormal relaxation filling pattern), normal to mildly elevated filling pressures. Right Ventricle Possibly normal size ejection fraction Right Atrium Normal right atrial size. Left Atrium Normal left atrial size. Mitral Valve Mild mitral annular calcification. Aortic Valve Thickened aortic valve. Tricuspid Valve Mild tricuspid valve regurgitation. Pulmonic Valve Mild pulmonary valve regurgitation. Pericardium Normal pericardium without effusion. Aorta Normal ascending aorta dimension. IVC Normal inferior vena cava. CONCLUSIONS Normal left ventricular size and systolic function, EF 59 %. No regional wall motion abnormalities. Grade I/IV diastolic dysfunction (abnormal relaxation filling pattern), normal to mildly elevated filling pressures. Mild mitral annular calcification. Thickened aortic valve. Mild tricuspid valve regurgitation. Mild pulmonary valve regurgitation. There is no pericardial effusion. There are no intracardiac masses. No similar previous studies are available for comparison. Dr Cj Mukherjee MD FAC (Electronically Signed) Final Date: 23 February 2023 21:31 S
[2023-02-23] MEDS: acetaminophen 500 mg Tablet PO (18:13)
--- NOTE | 2023-02-23 18:13 | PM.HP ---
Providers/Chief Complaint Admitting Physician: Avril Carcamo MD Primary Care Provider: Barrie Bhatt DO Chief Complaint: low bp, possilbe sepsis History of Present Illness Peng Cooper is a 77 year old male who has been in [place] because of his recurrent falls was getting physical therapy, presented with chief complaint of worsening shortness of breath fatigue and hemoglobin of 4. He was hypotensive required central line placement 2 units have been administered he has another order for 2 more units. He is on Levophed at 6 mics, patient has denied any history of NSAID use however stating that he drinks 6 beers daily. He lives alone, he is stating that in case he is not able to maintain his daughter will be the one who will take care of all medical decisions. He is full code. He does not have any history of CHF CT or coronary disease. He never had any hemoptysis however stating that he has been having dark stools since he started his iron supplements. Review of Systems Const: Reports: body aches and fatigue Eyes: Denies: change in vision ENMT: Denies: throat pain Card: Denies: chest pain Resp: Denies: dyspnea GI: Denies: abdominal pain : Denies: flank pain Musc: Denies: neck pain Skin/Breast: Denies: rash Neuro: Denies: headache(s) Medications/Allergies Home Medications Medication Instructions Recorded Confirmed Last Taken Type ferrous sulfate 325 mg (65 mg 325 mg PO BID@0800,199906/19/19 02/23/23 02/23/23 History iron) tablet magnesium 200 mg tablet 400 mg PO DAILY@0800 06/19/19 02/23/23 02/23/23 History dw-7-hdf-epa-fish oil-vit D3 300 1 cap PO DAILY@0800 06/19/19 02/23/23 02/23/23 History mg-1,000 mg-1,000 unit capsule saw palmetto 500 mg capsule 500 mg PO BID@06/19/19 02/23/23 02/23/23 History selenium 100 mcg tablet 100 mcg PO DAILY@0800 06/19/19 02/23/23 02/23/23 History oibytdcsuhdt-ymoyndym-tafzrs 1 tab PO DAILY@0800 06/16/20 02/23/23 02/23/23 History tablet (Multivitamin 50 Plus tablet) folic acid 1 mg tablet 1 mg PO DAILY@0800 #90 tabs 09/28/21 02/23/23 02/23/23 Rx artificial saliva (yerba savannah and 1 spray mucous membrane Q4H PRN 01/04/22 02/23/23 01/25/23 Rx lytes) spray dry mouth #59 mL glucosamine HCl 750 mg tablet 1,500 mg PO DAILY@0800 01/04/22 02/23/23 02/23/23 History Custom inserts or similar #1 ea 06/21/22 02/23/23 Unknown Rx hydroxychloroquine 200 mg tablet 200 mg PO BID #180 tabs 10/07/22 02/23/23 02/23/23 Rx sulfasalazine 500 mg tablet 0.5 g PO BID@0800,1999 #180 tabs 10/07/22 02/23/23 02/23/23 Rx aspirin 81 mg tablet,delayed 81 mg PO DAILY 30 days #30 tabs 01/26/23 02/23/23 02/23/23 Rx release atorvastatin 40 mg tablet 40 mg PO BEDTIME 30 days #30 tabs 01/26/23 02/23/23 02/22/23 Rx bisacodyl 10 mg rectal suppository 10 mg [place] DAILY PRN Constipation 01/31/23 02/23/23 01/24/23 History (Dulcolax (bisacodyl)) sodium phosphates 19 gram-7 118 ml [place] DAILY PRN Constipation 01/31/23 02/23/23 01/24/23 History gram/118 mL enema (Fleet Enema) magnesium hydroxide 400 mg/5 mL 30 ml PO DAILY #600 mL 02/03/23 02/23/23 02/23/23 Rx oral suspension (Milk of Magnesia) midodrine 5 mg tablet 5 mg PO TID 30 days #90 tabs 02/03/23 02/23/23 02/23/23 Rx sennosides 8.6 mg-docusate sodium 2 tab PO BID #14 tabs 02/03/23 02/23/23 02/23/23 Rx 50 mg tablet (Stool Softener-Laxative) hydrocodone 5 mg-acetaminophen 325 1 tab PO Q6H PRN pain 02/23/23 02/23/23 Unknown History mg tablet ondansetron HCl 8 mg tablet 8 mg PO Q6H PRN Nausea And Vomiting 02/23/23 02/23/23 02/23/23 History peg [id number]-bqcyzfvz 1 2 drp ophthalmic (eye) DAILY PRN 02/23/23 02/23/23 Unknown History %-0.2 %-0.2 % eye drops (Dry Eye Dry Eye(S) Relief) polyethylene glycol 3350 17 4 g PO DAILY 02/23/23 02/23/23 02/23/23 History gram/dose oral powder saliva substitute combo no.9 15 ml mucous membrane 5XD PRN Dry 02/23/23 02/23/23 Unknown History (Biotene Dry Mouth Oral Rinse Mouth mouthwash) Allergies Allergy/AdvReac Type Severity Reaction Status Date / Time No Known Allergies Allergy Verified 02/23/23 10:45 PFSH Acute PFSH: Medical History Acute CVA (cerebrovascular accident) Alcohol abuse Ex-smoker for more than 1 year History of exposure to asbestos History of Hodgkin's lymphoma diagnosed in 2013, treated with ABVD with good result History of PFTs Immunosuppression Iron deficiency anemia Marginal zone lymphoma identified in 2020 and 2021, observant management Neuropathy Onychomycosis Osteoarthritis Peripheral neuropathy Primary Sjogren's syndrome Recurrent falls Rib fractures Right knee meniscal tear Seropositive rheumatoid arthritis of multiple joints Thoracic outlet syndrome Weight loss Surgical History History of arthroplasty of left shoulder History of arthroplasty of right hip History of revision of total replacement of right hip joint Status post colonoscopy Status post surgery Bilateral chest surgery for thoracic outlet syndrome Family History Other Cancer Dementia Diabetes Denies family history of CAD (coronary artery disease) Clotting disorder Hyperlipidemia Psychiatric illness Chronic kidney disease (CKD) Suicide Anesthesia complication Bleeding disorder Lung disease Hypertension Stroke Social History Smoking and tobacco/nicotine status: former use of tobacco/nicotine Quit status (tobacco/nicotine): has quit using Year quit tobacco: 2010 [id number] Second hand smoke exposure: No Alcohol intake: current Alcohol intake frequency: 0-2 Drinks per Day Alcohol type: beer Substance/Drug Use: never Caregiver/support person: No Lives independently: No Household members: other Housing: Group Home Marital status: / service: No Current occupational status: retired Pets and animals: Yes Do you think of yourself as: Straight/Heterosexual Current gender identity: Male Vitals/I&O/Wt Last Vital Signs Temp 98.6 F 02/23/23 14:25 Pulse 88 02/23/23 16:45 Resp 33 H 02/23/23 16:45 BP 87/42 02/23/23 16:45 Pulse Ox 99 02/23/23 16:45 O2 Del Method Nasal Cannula 02/23/23 16:45 O2 Flow Rate 1 02/23/23 16:45 02/23/23 02/23/23 02/23/23 06:59 14:59 22:59 Intake Total 2095.59 / 2095.59 704.701 / 2800.291 Output Total 250 / 250 Balance 2095.59 / 2095.59 454.701 / 2550.291 Weight last 48 hrs Weight 69.853 kg Physical Exam Narrative: Pale complexion Currently on Levophed Pleasant and cooperative currently on 2 L S1, S2 Abdomen soft Lower extremity multiple bruises Venous stasis dermatitis No active swelling Data 02/23/23 10:35 02/23/23 10:35 Micro: Microbiology 02/23/23 10:53 Blood Culture - Preliminary Blood SPECIMEN COLLECTED 02/23/23 10:50 Blood Culture - Preliminary Blood SPECIMEN COLLECTED A&P Assessment and plan (1) Acute upper GI bleeding: (2) Abrasion of knee, bilateral: (3) Acute on chronic anemia: (4) Physical deconditioning: (5) Anemia: (6) Shock: (7) Hemorrhagic shock: Plan Hemorrhagic shock Acute GI blood loss anemia Normocytic anemia Transfuse 4 unit PRBC If becomes fluid overloaded we can give Lasix in between Currently requiring Levophed at 6 mics Protonix 40 IV twice daily N.p.o. after midnight EGD tomorrow Dr. Walsh consulted No active signs of decompensated liver failure Check ammonia level Full code N.p.o. after midnight DVT prophylaxis contraindicated Patient never had a colonoscopy at age 48 Attestations Medical Necessity Statement*: Anticipating more than 2 midnights Diagnoses Acute upper GI bleeding K92.2 Abrasion of knee, bilateral S80.211A; S80.212A Acute on chronic anemia D64.9 Physical deconditioning R53.81 Anemia D64.9 Shock R57.9 Hemorrhagic shock R57.8
--- NOTE | 2023-02-23 18:15 | PC.NURSE ---
Verbal orders from Dr. Carcamo given at bedside for morphine 2mg IVP Q6 as BP allows, and Echo. Verbal order given to stop NS and give third unit of blood, if patient tolerated without S/S of fluid overload, give fourth unit of blood.
--- NOTE | 2023-02-23 19:19 | PC.NURSE ---
TAR infusion from blood given in ER documented by this nurse.
[2023-02-23 20:41] LABS: Estmated Average Glucose 103; Hemoglobin A1C 5.2 % (4.0-6.0)
[2023-02-24] VITALS (67 sets, daily range): BP systolic 84–127; BP diastolic 45–73; PULSE 64–88; RESP 15–29; TEMP 36.6–37.1; O2SAT 89–100
[2023-02-24 05:37] LABS: Basophils # 0.1 10^3/uL (0.0-0.1); Basophils % 0.6 %; Eosinophils # 0.2 10^3/uL (0.0-0.8); Eosinophils % 1.5 %; Hematocrit 25.1 % (37-53); Lymphocytes # 1.2 10^3/uL (0.8-4.8); Lymphocytes % 7.7 %; Mean Corpuscular HGB Conc 33.5 g/dL (30-55); Mean Corpuscular Hemoglobin 29.1 pg (27-33); Mean Corpuscular Volume 86.9 fl (82-101); Mean Platelet Volume 9.8 fL (7.4-10.4); Monocytes # 1.5 10^3/uL (0.2-0.9); Monocytes % 9.3 %; Neutrophils # 12.33 10^3/uL (1.8-7.7); Neutrophils % 77.6 %; Nucleated Red Blood Cells # 0.4 /100WBC; Nucleated Red Blood Cells % 2.6 %; Platelet Count 109 10^3/cmm (157-399); Red Blood Count 2.89 10^6/uL (3.85-5.65); Red Cell Distribution Width 16.7 % (12.1-15.1); White Blood Count 15.88 10^3/uL (3.29-11.43)
[2023-02-24 05:53] LABS: Anion Gap 9.9 (5-19); Blood Urea Nitrogen 27 mg/dL (8-23); Calcium 8.5 mg/dL (8.5-10.5); Carbon Dioxide 24 mmol/L (22-29); Chloride 107 mmol/L (98-107); Glucose 136 mg/dL (65-115); Osmolality Calculated 291 mOsm/kg (285-295); Phosphorus 2.9 mg/dL (2.5-4.5); Potassium 3.9 mmol/L (3.5-5.1); Sodium 137 mmol/L (136-145)
[2023-02-24 06:00] LABS: Slide Review Slide Review Perform
--- NOTE | 2023-02-24 08:47 | PM.PN ---
Subjective Subjective: Patient is still on Levophed Status post 2 unit PRBC Hemoglobin stable Planning for EGD today We will request physical therapy as well after EGD Our plan is to discharge him back to care home by Tuesday Vitals/I&O/Wt Last Vital Signs Temp 98.7 F 02/24/23 08:45 Pulse 72 02/24/23 08:30 Resp 25 H 02/24/23 08:30 BP 117/70 02/24/23 08:30 Pulse Ox 95 02/24/23 08:30 O2 Del Method Nasal Cannula 02/24/23 08:30 O2 Flow Rate 1 02/24/23 08:30 02/23/23 02/24/23 02/24/23 22:59 06:59 14:59 Intake Total 2713.104 / 4808.694 386.563 / 5195.257 0 / 0 Output Total 700 / 700 1000 / 1700 Balance 2013.104 / 4108.694 -613.437 / 3495.257 0 / 0 Weight last 48 hrs Weight 69.853 kg Physical Exam Narrative: Awake and alert GCS 15 Pleasant cooperative and currently on Levophed at 6 mics Abdomen soft Lower extremity with multiple bruises S1, S2 Currently on room air MAP 78 mmHg Data 02/24/23 05:11 02/24/23 05:11 Micro: Microbiology 02/23/23 10:53 Blood Culture - Preliminary Blood SPECIMEN COLLECTED 02/23/23 10:50 Blood Culture - Preliminary Blood SPECIMEN COLLECTED A&P Assessment and plan (1) Hemorrhagic shock: (2) Acute upper GI bleeding: (3) Abrasion of knee, bilateral: (4) Acute on chronic anemia: (5) Anorexia: (6) Physical deconditioning: (7) Marginal zone lymphoma: (8) Generalized weakness: (9) Alcohol abuse: Plan Hemorrhagic shock: Still requiring Levophed Acute on chronic GI blood loss anemia: Hemoglobin stable after 3 unit PRBC No active signs of fluid overload Alcohol abuse continue thiamine and folic acid No signs of decompensated liver cirrhosis Hemodynamically stable EGD today N.p.o. Plan to send him back to care home if remains stable by Tuesday Continue Protonix Further decision will be made after EGD report Attestations Medical Necessity Statement*: Continue ICU management and wean off off Levophed Diagnoses Hemorrhagic shock R57.8 Acute upper GI bleeding K92.2 Abrasion of knee, bilateral S80.211A; S80.212A Acute on chronic anemia D64.9 Anorexia R63.0 Physical deconditioning R53.81 Marginal zone lymphoma C85.80 Generalized weakness R53.1 Alcohol abuse F10.10
[2023-02-24] MEDS: pantoprazole 40 mg SDV IVP ×2 (08:54→17:57)
--- NOTE | 2023-02-24 10:36 | ANES.PREANE2 ---
Pre-Anesthetic Assessment Height/Weight: Height 1.65 m Weight 69.853 kg Temp Pulse Resp BP Pulse Ox O2 Del Method O2 Flow Rate 98.7 F 72 25 H 117/70 95 Nasal Cannula 1 02/24/23 08:45 02/24/23 08:30 02/24/23 08:30 02/24/23 08:30 02/24/23 08:30 02/24/23 08:30 02/24/23 08:30 Operation Date: 02/24/23 09:30 Proposed Procedures p EGD(Not Applicable) - Edmond Walsh, DO Was Beta Julia taken within 24 hours: N/A Was Clonidine taken within 24 hours: N/A Last Intake: 23:00 Social Alcohol (6 pack every 2-3 days) and No tobacco Exam alert and oriented x 3 Airway Submandibular: within normal limits Cervical ROM: within normal limits Mallampati: Class I Dentition: false History/ROS No significant history except as noted Pulmonary Chronic Obstructive Pulmonary Disease and Sleep Apnea (have trouble sleeping but denies apnea) CV/HEM None reported Chronic Renal Insufficiency (BUN elevated- unsure of kidney function) Hepatic None reported GI None reported Metabolic Hyperlipidemia [facility] [place] Rheumatoid Arthritis Neuropsych Neuropathy Anesthetic Plan ASA status: 4 Anesthesia: MAC Risk of > 500 ml blood loss (7ml/kg in children): No Medications/Allergies Home Medications Medication Instructions Recorded Confirmed Last Taken Type ferrous sulfate 325 mg (65 mg 325 mg PO BID@0800,199906/19/19 02/23/23 02/23/23 History iron) tablet magnesium 200 mg tablet 400 mg PO DAILY@79906/19/19 02/23/23 02/23/23 History tj-1-zhs-epa-fish oil-vit D3 300 1 cap PO DAILY@79906/19/19 02/23/23 02/23/23 History mg-1,000 mg-1,000 unit capsule saw palmetto 500 mg capsule 500 mg PO BID@06/19/19 02/23/23 02/23/23 History selenium 100 mcg tablet 100 mcg PO DAILY@0800 06/19/19 02/23/23 02/23/23 History bagsueiugdhg-ghpwkjzn-oqfvnq 1 tab PO DAILY@0800 06/16/20 02/23/23 02/23/23 History tablet (Multivitamin 50 Plus tablet) folic acid 1 mg tablet 1 mg PO DAILY@0800 #90 tabs 09/28/21 02/23/23 02/23/23 Rx artificial saliva (yerba savannah and 1 spray mucous membrane Q4H PRN 01/04/22 02/23/23 01/25/23 Rx lytes) spray dry mouth #59 mL glucosamine HCl 750 mg tablet 1,500 mg PO DAILY@0800 01/04/22 02/23/23 02/23/23 History Custom inserts or similar #1 ea 06/21/22 02/23/23 Unknown Rx hydroxychloroquine 200 mg tablet 200 mg PO BID #180 tabs 10/07/22 02/23/23 02/23/23 Rx sulfasalazine 500 mg tablet 0.5 g PO BID@0800,1999 #180 tabs 10/07/22 02/23/23 02/23/23 Rx aspirin 81 mg tablet,delayed 81 mg PO DAILY 30 days #30 tabs 01/26/23 02/23/23 02/23/23 Rx release atorvastatin 40 mg tablet 40 mg PO BEDTIME 30 days #30 tabs 01/26/23 02/23/23 02/22/23 Rx bisacodyl 10 mg rectal suppository 10 mg HI DAILY PRN Constipation 01/31/23 02/23/23 01/24/23 History (Dulcolax (bisacodyl)) sodium phosphates 19 gram-7 118 ml HI DAILY PRN Constipation 01/31/23 02/23/23 01/24/23 History gram/118 mL enema (Fleet Enema) magnesium hydroxide 400 mg/5 mL 30 ml PO DAILY #600 mL 02/03/23 02/23/23 02/23/23 Rx oral suspension (Milk of Magnesia) midodrine 5 mg tablet 5 mg PO TID 30 days #90 tabs 02/03/23 02/23/23 02/23/23 Rx sennosides 8.6 mg-docusate sodium 2 tab PO BID #14 tabs 02/03/23 02/23/23 02/23/23 Rx 50 mg tablet (Stool Softener-Laxative) hydrocodone 5 mg-acetaminophen 325 1 tab PO Q6H PRN pain 02/23/23 02/23/23 Unknown History mg tablet ondansetron HCl 8 mg tablet 8 mg PO Q6H PRN Nausea And Vomiting 02/23/23 02/23/23 02/23/23 History peg [id number] 1 2 drp ophthalmic (eye) DAILY PRN 02/23/23 02/23/23 Unknown History %-0.2 %-0.2 % eye drops (Dry Eye Dry Eye(S) Relief) polyethylene glycol 3350 17 4 g PO DAILY 02/23/23 02/23/23 02/23/23 History gram/dose oral powder saliva substitute combo no.9 15 ml mucous membrane 5XD PRN Dry 02/23/23 02/23/23 Unknown History (Biotene Dry Mouth Oral Rinse Mouth mouthwash) Allergies Allergy/AdvReac Type Severity Reaction Status Date / Time No Known Allergies Allergy Verified 02/23/23 10:45 Current Medications Generic Name Dose Route Start Last Admin Trade Name Freq PRN Reason Stop Dose Admin Acetaminophen 500 mg 02/23/23 14:58 02/23/23 18:13 Acetaminophen 500 Mg Tablet PO 500 mg Q4H PRN Administration fever Folic Acid 1 mg 02/24/23 09:00 02/24/23 08:53 Folic Acid 1 Mg Tablet PO Not Given DAILY COLT Sodium Chloride 1,000 mls @ 100 mls/hr 02/23/23 14:58 02/23/23 18:14 Sodium Chloride 0.9% IV 0 mls/hr .Q10H COLT Infusion Norepinephrine Bitartrate 4 mg 254 mls @ 0 mls/hr 02/23/23 14:58 02/24/23 07:22 / Dextrose IV 6 mcg/min .Q0M COLT 22.86 mls/hr Administration Protocol Per Protocol Pantoprazole Sodium 40 mg 02/23/23 18:00 02/24/23 08:54 Pantoprazole 40 Mg Sdv IVP 40 mg BID COLT Administration Sucralfate 1 gm 02/23/23 18:00 02/24/23 08:53 Sucralfate 1 Gm/10 Ml Oral Liq Udc PO Not Given BID COLT Thiamine HCl 100 mg 02/24/23 09:00 02/24/23 08:55 Thiamine 100 Mg/Ml Sdv IVP 100 mg DAILY COLT Administration PFSH Anesthesia Medical History Acute CVA (cerebrovascular accident) Alcohol abuse Ex-smoker for more than 1 year History of exposure to asbestos History of Hodgkin's lymphoma diagnosed in 2013, treated with ABVD with good result History of PFTs Immunosuppression Iron deficiency anemia Marginal zone lymphoma identified in 2020 and 2021, observant management Neuropathy Onychomycosis Osteoarthritis Peripheral neuropathy Primary Sjogren's syndrome Recurrent falls Rib fractures Right knee meniscal tear Seropositive rheumatoid arthritis of multiple joints Thoracic outlet syndrome Weight loss Surgical History History of arthroplasty of left shoulder History of arthroplasty of right hip History of revision of total replacement of right hip joint Status post colonoscopy Status post surgery Bilateral chest surgery for thoracic outlet syndrome Family History Other Cancer Dementia Diabetes Denies family history of CAD (coronary artery disease) Clotting disorder Hyperlipidemia Psychiatric illness Chronic kidney disease (CKD) Suicide Anesthesia complication Bleeding disorder Lung disease Hypertension Stroke Social History Smoking and tobacco/nicotine status: former use of tobacco/nicotine Quit status (tobacco/nicotine): has quit using Year quit tobacco: 2010 [id number] Second hand smoke exposure: No Alcohol intake: current Alcohol intake frequency: 0-2 Drinks per Day Alcohol type: beer Substance/Drug Use: never Caregiver/support person: No Lives independently: No Household members: other Housing: [facility] Marital status: / service: No Current occupational status: retired Pets and animals: Yes Do you think of yourself as: Straight/Heterosexual Current gender identity: Male Data Anesthesia 02/24/23 05:11 02/24/23 05:11 Short CBC 02/23/23 02/24/23 Range/Units 10:35 05:11 WBC 15.71 H 15.88 H (3.29-11.43) 10^3/uL Hgb 4.20 L* 8.40 L D (11.27-16.99) g/dL Hct 13.3 L* 25.1 L D (37-53) % MCV 95.7 86.9 D (82-101) fl Plt Count 189 109 L D (157-399) 10^3/cmm Neut % (Auto) 79.7 77.6 % Neut # (Auto) 12.52 H 12.33 H (1.8-7.7) 10^3/uL BMP 02/23/23 02/24/23 10:35 05:11 Sodium 137 137 Potassium 5.1 3.9 Chloride 100 107 Carbon Dioxide 24 24 BUN 54 H 27 H Creatinine 1.2 0.7 Glucose 142 H 136 H Calcium 9.0 8.5 Liver Function 02/23/23 Range/Units 10:35 Total Bilirubin 0.3 (0.15-1.2) mg/dL AST 41 H (0-40) U/L ALT 33 (0-41) U/L Alkaline Phosphatase 63 (40-130) U/L Albumin 3.3 L (3.5-5.2) g/dL Blood Bank 02/23/23 10:35 Blood Type B Positive Rho(D) Type Positive Antibody Screen Negative Coags 02/23/23 10:35 PT 15.10 H INR 1.15 Microbiology 02/23/23 10:53 Blood Culture - Preliminary Blood SPECIMEN COLLECTED 02/23/23 10:50 Blood Culture - Preliminary Blood SPECIMEN COLLECTED Cardiac Studies: Echocardiogram 02/23/23
--- NOTE | 2023-02-24 10:58 | PM.PN ---
Vitals/I&O/Wt Last Vital Signs Temp 98.7 F 02/24/23 08:45 Pulse 67 02/24/23 10:30 Resp 20 H 02/24/23 10:30 BP 112/61 02/24/23 10:30 Pulse Ox 97 02/24/23 10:30 O2 Del Method Room Air 02/24/23 10:30 O2 Flow Rate 1 02/24/23 08:30 02/23/23 02/24/23 02/24/23 22:59 06:59 14:59 Intake Total 2713.104 / 4808.694 386.563 / 5195.257 0 / 0 Output Total 700 / 700 1000 / 1700 Balance 2013.104 / 4108.694 -613.437 / 3495.257 0 / 0 Weight last 48 hrs Weight 154 lb Data 02/24/23 05:11 02/24/23 05:11 Micro: Microbiology 02/23/23 10:53 Blood Culture - Preliminary Blood NEGATIVE TO DATE 02/23/23 10:50 Blood Culture - Preliminary Blood NEGATIVE TO DATE A&P Assessment and plan (1) Acute upper GI bleeding: Plan EGD The risks and benefits of the procedure, including bleeding, infection, intestinal perforation requiring surgery, missed lesion were explained to the patient. The patient is understanding of the risks and wishes to proceed. Attestations Medical Necessity Statement*: Per primary Coding Level of Care Code Acute Code for Chg Fwd Diagnoses Acute upper GI bleeding K92.2
--- NOTE | 2023-02-24 12:21 | PC.NURSE ---
Dr. Walsh contacted for diet orders, Verbal order for GI Soft diet received and entered.
--- NOTE | 2023-02-24 12:48 | ANE.PACU2 ---
Inpatient post-anesthesia follow up: Airway intact: Yes Vital signs: Temperature 98.7 F Pulse Rate 67 Respiratory Rate 20 Blood Pressure 112/61 Pulse Oximetry 97 Oxygen Delivery Me thod Room Air Oxygen Flow Rate 1 Fraction of Inspir ed Oxygen Hydration adequate: Yes Nausea and vomiting: No Pain level: 2 Mental status: Baseline
[2023-02-24] MEDS: sucralfate 1 gm/10 mL Oral Liq UDC PO (17:57)
[2023-02-25] VITALS (54 sets, daily range): BP systolic 86–128; BP diastolic 42–74; PULSE 60–98; RESP 16–41; TEMP 36.6–37.1; O2SAT 89–97
[2023-02-25 04:53] LABS: Basophils % 0.3 %; Eosinophils # 0.2 10^3/uL (0.0-0.8); Eosinophils % 2.1 %; Hematocrit 23.4 % (37-53); Lymphocytes # 0.7 10^3/uL (0.8-4.8); Lymphocytes % 6.8 %; Mean Corpuscular HGB Conc 32.9 g/dL (30-55); Mean Corpuscular Hemoglobin 29.4 pg (27-33); Mean Corpuscular Volume 89.3 fl (82-101); Mean Platelet Volume 10.3 fL (7.4-10.4); Monocytes # 0.8 10^3/uL (0.2-0.9); Monocytes % 7.5 %; Neutrophils # 8.31 10^3/uL (1.8-7.7); Neutrophils % 82.5 %; Nucleated Red Blood Cells # 0.1 /100WBC; Nucleated Red Blood Cells % 0.8 %; Platelet Count 95 10^3/cmm (157-399); Red Blood Count 2.62 10^6/uL (3.85-5.65); Red Cell Distribution Width 17.7 % (12.1-15.1); White Blood Count 10.08 10^3/uL (3.29-11.43)
[2023-02-25 05:02] LABS: Anion Gap 8.5 (5-19); Blood Urea Nitrogen 9 mg/dL (8-23); Calcium 8.1 mg/dL (8.5-10.5); Carbon Dioxide 26 mmol/L (22-29); Chloride 106 mmol/L (98-107); Glucose 113 mg/dL (65-115); Osmolality Calculated 283 mOsm/kg (285-295); Potassium 3.5 mmol/L (3.5-5.1); Sodium 137 mmol/L (136-145)
[2023-02-25 05:58] LABS: Hematocrit 22.4 % (37-53)
[2023-02-25] MEDS: sucralfate 1 gm/10 mL Oral Liq UDC PO ×2 (08:48→17:36)
[2023-02-25] MEDS: pantoprazole 40 mg SDV IVP ×2 (08:48→17:36)
[2023-02-25] MEDS: folic acid 1 mg Tablet PO (08:49)
--- NOTE | 2023-02-25 10:04 | PM.PN ---
Subjective Subjective: Looking for general blood Levophed has been turned off Patient doing well tolerating diet Vitals/I&O/Wt Last Vital Signs Temp 98.3 F 02/25/23 01:00 Pulse 98 02/25/23 09:00 Resp 41 H 02/25/23 09:00 BP 102/54 02/25/23 09:00 Pulse Ox 93 02/25/23 07:51 O2 Del Method Nasal Cannula 02/25/23 05:30 O2 Flow Rate 0.5 02/25/23 05:30 02/24/23 02/25/23 02/25/23 22:59 06:59 14:59 Intake Total 240 / 575.063 0293.813 / 1838.027 650 / 650 Output Total 650 / 1100 275 / 1375 Balance -410 / -431.786 894.813 / 463.027 650 / 650 Weight last 48 hrs Weight 69.853 kg Physical Exam Narrative: GCS 15 No CMT no swelling Awake and alert Currently on 0.5 L nasal cannula S1, S2 Hemodynamically stable Pleasant and cooperative Data 02/25/23 05:52 02/25/23 04:28 Micro: Microbiology 02/23/23 10:53 Blood Culture - Preliminary Blood NEGATIVE TO DATE 02/23/23 10:50 Blood Culture - Preliminary Blood NEGATIVE TO DATE A&P Assessment and plan (1) Hemorrhagic shock: (2) Acute upper GI bleeding: (3) Anemia: (4) Shock: (5) Physical deconditioning: (6) Generalized weakness: Plan Alcohol abuse :we will discharge him on thiamine: No active signs of withdrawal Hemorrhagic shock related to GI bleed status post 4 unit PRBC We will give fourth unit of PRBC today We will discharge him on sucralfate and Protonix Awaiting placement Okay to be discharged once get authorization Full code Liquid diet Attestations Medical Necessity Statement*: Continue medical management Diagnoses Hemorrhagic shock R57.8 Acute upper GI bleeding K92.2 Anemia D64.9 Shock R57.9 Physical deconditioning R53.81 Generalized weakness R53.1
--- NOTE | 2023-02-25 11:13 | PC.SOCIAL ---
IMM Update pg 2 of IMM updated and reviewed w/ patient. Copy provided and copy dated, initialed and placed in chart.
--- NOTE | 2023-02-25 18:12 | PC.NURSE ---
pt has needed to be fed all meals today can hold handle cup to drink but doesnt use left hand to lift .no attempt made to assist with his care worked with pt in bed exercises only ..
[2023-02-26] VITALS (28 sets, daily range): BP systolic 83–129; BP diastolic 55–75; PULSE 67–102; RESP 16–32; TEMP 36.6–36.8; O2SAT 83–98
[2023-02-26] MEDS: pantoprazole 40 mg SDV IVP (08:25)
[2023-02-26] MEDS: folic acid 1 mg Tablet PO (08:25)
[2023-02-26] MEDS: sucralfate 1 gm/10 mL Oral Liq UDC PO ×2 (08:25→17:13)
--- NOTE | 2023-02-26 08:42 | PM.PN ---
Subjective Subjective: Patient can be transferred to [facility] No significant events overnight Currently on Hemodynamically stable Afebrile Vitals/I&O/Wt Last Vital Signs Temp 98.8 F 02/25/23 20:25 Pulse 78 02/26/23 08:00 Resp 16 02/26/23 08:00 BP 109/69 02/26/23 07:00 Pulse Ox 92 02/26/23 08:00 O2 Del Method Room Air 02/26/23 08:00 O2 Flow Rate 1 02/25/23 20:25 02/25/23 02/26/23 02/26/23 22:59 06:59 14:59 Intake Total 320 / 1720 550 / 2270 240 / 240 Output Total 1300 / 2450 2400 / 4850 250 / 250 Balance -980 / -730 -1850 / -2580 -10 Physical Exam Narrative: Awake alert Signs of dehydration improving Hemodynamic stable Currently on room air Patient voiding on his own Abdomen soft Pleasant and cooperative Nonfocal neuro exam Data 02/25/23 05:52 02/25/23 04:28 A&P Assessment and plan (1) Hemorrhagic shock: (2) Acute upper GI bleeding: (3) Anorexia: (4) Physical deconditioning: Plan Hemorrhagic shock: Resolved Levophed has been turned off Hemodynamic stable Awaiting placement Can be transferred to [facility] Alcohol abuse Continue thiamine and folic acid Attestations Medical Necessity Statement*: transfre med surg Diagnoses Hemorrhagic shock R57.8 Acute upper GI bleeding K92.2 Anorexia R63.0 Physical deconditioning R53.81
--- NOTE | 2023-02-26 11:24 | PC.NURSE ---
assisted with am meal .. encouraged pt to help with self care fork padded to assist him in attempt to feed himself more repositioned with lots of encouragement
--- NOTE | 2023-02-26 13:57 | PC.NURSE ---
report called to 2nd floor for transfer ... had loose dark bm alee care done and bath done linen change done to bed
[2023-02-26] MEDS: pantoprazole DR 40 mg Tablet PO (17:13)
[2023-02-27] VITALS (8 sets, daily range): BP systolic 101–129; BP diastolic 58–79; PULSE 79–88; RESP 16–18; TEMP 36.4–36.9; O2SAT 94–98
[2023-02-27 05:20] LABS: Basophils % 0.5 %; Eosinophils # 0.3 10^3/uL (0.0-0.8); Eosinophils % 3.8 %; Hematocrit 29.3 % (37-53); Lymphocytes # 0.6 10^3/uL (0.8-4.8); Lymphocytes % 7.9 %; Mean Corpuscular HGB Conc 31.4 g/dL (30-55); Mean Corpuscular Hemoglobin 29.4 pg (27-33); Mean Corpuscular Volume 93.6 fl (82-101); Mean Platelet Volume 10.3 fL (7.4-10.4); Monocytes # 0.8 10^3/uL (0.2-0.9); Monocytes % 10.2 %; Neutrophils # 6.11 10^3/uL (1.8-7.7); Nucleated Red Blood Cells % 0 %; Platelet Count 125 10^3/cmm (157-399); Red Blood Count 3.13 10^6/uL (3.85-5.65); Red Cell Distribution Width 17.7 % (12.1-15.1); White Blood Count 7.94 10^3/uL (3.29-11.43)
[2023-02-27] MEDS: pantoprazole DR 40 mg Tablet PO ×2 (09:21→17:11)
[2023-02-27] MEDS: sucralfate 1 gm/10 mL Oral Liq UDC PO ×2 (09:21→17:11)
[2023-02-27] MEDS: folic acid 1 mg Tablet PO (09:21)
--- NOTE | 2023-02-27 17:59 | P.PN_ITS ---
Subjective Subjective: Hemoglobin stable Hemodynamically stable Pending authorization Vitals/I&O/Wt Last Vital Signs Temp 98.3 F 02/26/23 16:23 Pulse 77 02/26/23 16:23 Resp 16 02/26/23 16:23 BP 107/64 02/26/23 16:23 Pulse Ox 98 02/26/23 16:23 O2 Del Method Room Air 02/26/23 16:23 O2 Flow Rate 1 02/25/23 20:25 02/26/23 02/26/23 02/26/23 06:59 14:59 22:59 Intake Total 550 / 2270 930 / 930 Output Total 2400 / 4850 850 / 850 Balance -1850 / -2580 80 / 80 Physical Exam Narrative: Signs of dehydration improving Hemodynamic stable GCS 15 No active diarrhea or vomiting Doing well on room air Pleasant and cooperative No active signs of alcohol withdrawal S1, S2 Data 02/27/23 04:47 02/25/23 04:28 A&P Assessment and plan (1) Hemorrhagic shock: (2) Acute upper GI bleeding: (3) Anemia: (4) Alcohol abuse: Plan Pending authorization Hemoglobin stable Continue Protonix and sucralfate Avoid DVT prophylaxis with anticoagulating agent Echo showed preserved ejection fraction without wall motion abnormality Patient will return to correction on Tuesday Attestations Medical Necessity Statement*: Continue medical management Diagnoses Hemorrhagic shock R57.8 Acute upper GI bleeding K92.2 Anemia D64.9 Alcohol abuse F10.10
[2023-02-28 04:00] VITALS: BP 98/63; PULSE 87; RESP 17; TEMP 36.5; O2SAT 97
[2023-02-28 08:00] VITALS: BP 102/61; PULSE 87; RESP 20; TEMP 36.6; O2SAT 96
[2023-02-28 08:29] VITALS: PULSE 76; RESP 18; O2SAT 93
[2023-02-28] MEDS: sucralfate 1 gm/10 mL Oral Liq UDC PO (08:31)
[2023-02-28] MEDS: folic acid 1 mg Tablet PO (08:31)
[2023-02-28] MEDS: pantoprazole DR 40 mg Tablet PO (08:31)
--- NOTE | 2023-02-28 09:42 | P.DS_ITS ---
Discharge Providers Date of Admission: 02/23/23 13:22 Date of Discharge: February 25, 2023 Attending Provider at Admission: Avril Carcamo MD Attending Provider at Discharge: Avril Carcamo MD Primary Care Provider: Barrie Bhatt DO Diagnoses at Discharge Discharge Diagnosis (1) Acute upper GI bleeding: Status: Acute Reason for Visit Reason for Visit: low bp, possilbe sepsis Hospital Course Hospital Course 77-year-old male w past medical history of Hodgkin's lymphoma currently on observation treatment with unknown stable pleural based right upper thorax lesion, rheumatoid arthritis, Sjogren's syndrome on sulfasalazine and hydroxychloroquine, chronic alcoholism who was admitted for management evaluation of low hemoglobin, hemoglobin was around 4 at the time of admission, he was given 4 units PRBC, Dr. Walsh was consulted for EGD, EGD showed gastritis, superficial esophageal ulcer, patient initially required Levophed for hemorrhagic shock which was gradually weaned off. [facility] will return to his [facility], patient stating that he still has 1-2 more weeks left for physical therapy at the [facility]. He does have history of alcohol abuse he was given thiamine and folic acid during hospitalization. He did not show any signs of decompensated liver cirrhosis or alcohol withdrawal. He follows up with Dr. Herrera grab hooker. Physical Exam Narrative: Pleasant and cooperative GCS 15 Muscle mass loss Abdomen soft No signs of alcohol withdrawal Hemodynamically stable Currently on room air Discharge Data Studies Completed and Pending Completed Studies During Hospitalization Category Date Time Status XR chest 1V portable [id number] Stat Exams 02/23/23 10:40 Completed XR chest 1V portable [id number] Stat Exams 02/23/23 12:32 Completed US echo complete [CV. echo complete* [id number]] Routine Ultrasound 02/23/23 18:10 Completed Pending at discharge Category Date Time Status Blood Culture Stat Lab 02/23/23 10:53 Results Pathology: Surgical [PTH] Routine Pth 02/24/23 11:27 Received Radiology Impressions Chest X-Ray 02/23/23 12:32 IMPRESSION: As above. Laboratory Results WBC 10.08 10^3/uL (3.29-11.43) 02/25/23 04:28 RBC 2.62 10^6/uL (3.85-5.65) L 02/25/23 04:28 Hgb 7.70 g/dL (11.27-16.99) L 02/25/23 04:28 Hct 23.4 % (37-53) L 02/25/23 04:28 MCV 89.3 fl (82-101) 02/25/23 04:28 MCH 29.4 pg (27-33) 02/25/23 04:28 MCHC 32.9 g/dL (30-55) 02/25/23 04:28 RDW 17.7 % (12.1-15.1) H 02/25/23 04:28 Plt Count 95 10^3/cmm (157-399) L 02/25/23 04:28 MPV 10.3 fL (7.4-10.4) 02/25/23 04:28 Neut % (Auto) 82.5 % 02/25/23 04:28 Lymph % (Auto) 6.8 % 02/25/23 04:28 Grant % (Auto) 7.5 % 02/25/23 04:28 Eos % (Auto) 2.1 % 02/25/23 04:28 Baso % (Auto) 0.3 % 02/25/23 04:28 Neut # (Auto) 8.31 10^3/uL (1.8-7.7) H 02/25/23 04:28 Lymph # (Auto) 0.7 10^3/uL (0.8-4.8) L 02/25/23 04:28 Grant # (Auto) 0.8 10^3/uL (0.2-0.9) 02/25/23 04:28 Eos # (Auto) 0.2 10^3/uL (0.0-0.8) 02/25/23 04:28 Baso # (Auto) 0.0 10^3/uL (0.0-0.1) 02/25/23 04:28 Nucleated RBC % (auto) 0.8 % 02/25/23 04:28 Nucleated RBCs # 0.1 /100WBC 02/25/23 04:28 PT 15.10 SECONDS (12.1-14.9) H 02/23/23 10:35 INR 1.15 (0.8-1.2) 02/23/23 10:35 Sodium 137 mmol/L (136-145) 02/25/23 04:28 Potassium 3.5 mmol/L (3.5-5.1) 02/25/23 04:28 Chloride 106 mmol/L (98-107) 02/25/23 04:28 Carbon Dioxide 26 mmol/L (22-29) 02/25/23 04:28 Anion Gap 8.5 (5-19) 02/25/23 04:28 BUN 9 mg/dL (8-23) 02/25/23 04:28 Creatinine 0.5 mg/dL (0.7-1.2) L 02/25/23 04:28 GFR Calculation Not Reportable 02/25/23 04:28 Glucose 113 mg/dL (65-115) 02/25/23 04:28 Estimat Average Glucose 103 02/23/23 10:35 Hemoglobin A1c 5.2 % (4.0-6.0) 02/23/23 10:35 Calculated Osmolality 283 mOsm/kg (285-295) L 02/25/23 04:28 Lactic Acid 4.6 mmol/L (0.5-2.2) H* 02/23/23 10:35 Lactic Acid (Sepsis) 1.3 mmol/L (0.5-2.2) 02/23/23 13:39 Calcium 8.1 mg/dL (8.5-10.5) L 02/25/23 04:28 Phosphorus 2.9 mg/dL (2.5-4.5) 02/24/23 05:11 Magnesium 2.0 mg/dL (1.7-2.3) 02/24/23 05:11 Total Bilirubin 0.3 mg/dL (0.15-1.2) 02/23/23 10:35 AST 41 U/L (0-40) H 02/23/23 10:35 ALT 33 U/L (0-41) 02/23/23 10:35 Alkaline Phosphatase 63 U/L (40-130) 02/23/23 10:35 Total Protein 5.5 g/dL (6.6-8.7) L 02/23/23 10:35 Albumin 3.3 g/dL (3.5-5.2) L 02/23/23 10:35 Globulin 2.2 g/dL (1.3-4.6) 02/23/23 10:35 Lipase 106 U/L (13-60) H 02/23/23 10:35 Blood Type B Positive 02/23/23 10:35 Rho(D) Type Positive 02/23/23 10:35 Antibody Screen Negative 02/23/23 10:35 Crossmatch See Detail 02/23/23 10:35 Vitals Last Vital Signs Temp 98.3 F 02/25/23 01:00 Pulse 70 02/25/23 03:00 Resp 23 H 02/25/23 03:00 BP 109/60 02/25/23 03:00 Pulse Ox 97 02/25/23 03:00 O2 Del Method Room Air 02/25/23 03:00 O2 Flow Rate 1 02/24/23 08:30 Discharge Plan Discharge Patient Disposition: Xfer SNF Condition: Stable Prescriptions: New pantoprazole [Protonix] 40 mg tablet,delayed release (DR/EC) 40 mg PO DAILY 56 Days Qty: 42 0RF thiamine HCl (vitamin B1) 100 mg tablet 100 mg PO DAILY Qty: 60 0RF sucralfate 100 mg/mL suspension 1 g PO BID 56 Days Qty: 1120 0RF Continued wn-4-dut-epa-fish oil-vit D3 300-1,000-1,000 mg-mg-unit capsule 1 cap PO DAILY@0800 magnesium 200 mg tablet 400 mg PO DAILY@0800 selenium 100 mcg tablet 100 mcg PO DAILY@0800 glucosamine HCl 750 mg tablet 1,500 mg PO DAILY@0800 artificial saliva (yerbas-lyt) Aerosol,[place] 1 spray mucous membrane Q4H PRN (Reason: dry mouth) Qty: 59 3RF Rx Instructions: administer while awake (DME) Custom inserts or similar See Rx Instructions .Route .MEDSUPPLY Qty: 1 0RF Rx Instructions: to folic acid 1 mg tablet 1 mg PO DAILY@0800 Qty: 90 1RF sulfasalazine 500 mg tablet 0.5 g PO BID@0800,2000 Qty: 180 1RF Rx Instructions: give with food (meal/snack) hydroxychloroquine 200 mg tablet 200 mg PO BID Qty: 180 2RF Multivitamin 50 Plus Tablet 1 tab PO DAILY@0800 atorvastatin 40 mg Tablet 40 mg PO BEDTIME 30 Days Qty: 30 0RF bisacodyl [Dulcolax (bisacodyl)] 10 mg Suppository 10 mg OR DAILY PRN (Reason: Constipation) Fleet Enema 19-7 gram/118 mL Enema 118 ml OR DAILY PRN (Reason: Constipation) sennosides-docusate sodium [Stool Softener-Laxative] 8.6-50 mg Tablet 2 tab PO BID Qty: 14 0RF midodrine 5 mg Tablet 5 mg PO TID 30 Days Qty: 90 0RF magnesium hydroxide [Milk of Magnesia] 400 mg/5 mL Suspension 30 ml PO DAILY Qty: 600 0RF hydrocodone-acetaminophen 5-325 mg tablet 1 tab PO Q6H PRN (Reason: pain) GlycoLax 17 gram/dose Powder 4 g PO DAILY Dry Eye Relief 1-0.2-0.2 % Drops 2 drp OPHTHALMIC (EYE) DAILY PRN (Reason: Dry Eye(S)) Biotene Dry Mouth Oral Rinse Mouthwash 15 ml MUCOUS MEMBRANE 5XD PRN (Reason: Dry Mouth) Rx Instructions: swish for 15-30 secs , then spit out; do not swallow Zofran 8 mg Tablet 8 mg PO Q6H PRN (Reason: Nausea And Vomiting) Held ferrous sulfate 325 mg (65 mg iron) tablet 325 mg PO BID@799,1999 Hold Instructions: Resume on 03/07/23. Discontinued saw palmetto 500 mg capsule 500 mg PO BID@799,1999 aspirin 81 mg Tablet,Delayed Release (Dr/Ec) 81 mg PO DAILY 30 Days Qty: 30 0RF Discharge Orders: Discharge Order (Routine); Ordered 02/28/23 Ordered By: Avril Carcamo Referrals: [facility] [Outside] Barrie Bhatt DO [Primary Care Provider] - Discharge Diet: Low Salt Discharge Activity: Use walker/crutches as instructed and As per PT/OT instructions Patient Instructions: GI Discharge Instructions, Opioid Safety Discharge Attestations Time Spent in Discharge Care*: greater than 30 min Status at Discharge: Cognitive status at discharge: cognitively intact , Behavioral status at discharge: cooperative , Quality Metrics Clinical Quality Measures [ No reported AMI, CVA or VTE this stay] Coding Level of Care Code Acute Code for Chg Fwd Diagnoses Acute upper GI bleeding K92.2
--- NOTE | 2023-02-28 11:51 | PC.SOCIAL ---
IMM Update pg 2 of IMM updated and reviewed w/ patient. Copy provided and copy in chart dated, and initialed.
[2023-02-28 12:00] VITALS: BP 108/61; PULSE 94; RESP 18; TEMP 36.8; O2SAT 95
[2023-02-28 12:17] LABS: SARS Covid-2 Antigen negative (Negative)
[2023-02-28 13:00] VITALS: BP 108/61; PULSE 94; RESP 18; TEMP 36.8; O2SAT 95
== END 2023-02-28 13:01 | disposition skilled nursing facility (03) | DRG 377 ==
LOC: ER 13:39 → ICU 13:51 → MEDSURG 02-26 14:31
PROVIDERS: Emergency Medicine; Surgery; Admitting Provider Internal Medicine; Emergency Provider Family Medicine; PCP Internal Medicine; Visit Provider Internal Medicine
PROC: 0DJ08ZZ Inspection of Upper Intestinal Tract, Via Natural or Artificial Opening Endoscopic (ICD-10-PCS; CPT 43235; principal; 2023-02-24 09:30)
DX: K29.71 Gastritis, unspecified, with bleeding (principal); R57.8 Other shock; D84.821 Immunodeficiency due to drugs; D62 Acute posthemorrhagic anemia; Z85.71 Personal history of Hodgkin lymphoma; M05.89 Other rheumatoid arthritis with rheumatoid factor of multiple sites; M35.00 Sjogren syndrome, unspecified; Z79.899 Other long term (current) drug therapy; F10.20 Alcohol dependence, uncomplicated; K70.30 Alcoholic cirrhosis of liver without ascites; Z79.891 Long term (current) use of opiate analgesic; Z86.73 Personal history of transient ischemic attack (TIA), and cerebral infarction without residual deficits; Z87.891 Personal history of nicotine dependence; Z77.090 Contact with and (suspected) exposure to asbestos; G62.9 Polyneuropathy, unspecified; Z11.52 Encounter for screening for COVID-19; E78.5 Hyperlipidemia, unspecified; J44.9 Chronic obstructive pulmonary disease, unspecified; I95.9 Hypotension, unspecified; Z96.641 Presence of right artificial hip joint; Z96.612 Presence of left artificial shoulder joint; Z91.81 History of falling; K22.11 Ulcer of esophagus with bleeding
CPT/HCPCS: 36415; 36430; 36556; 36592; 71045; 80048; 80053; 83036; 83605; 83690; 83735; 84100; 85014; 85018; 85025; 85610; 86850; 86900; 86920; 87040; 87426; 88305; 88342; 93005; 93306; 96365; 96366; 96367; 96375; 96376; 97110; 97161; 97530; 99291; C1751; C9113; J2250; J2704; J3411; J3490; J7030; J7060; P9016

== ENCOUNTER 2023-03-09 07:16 | Oncology outpatient (recurring) (ONCR) | payer MEDICARE, SELFPAY ==
[2023-03-09 07:39] VITALS: BP 104/68; PULSE 90; RESP 16; TEMP 36.5; O2SAT 95
[2023-03-09 07:57] LABS: Basophils # 0.1 10^3/uL (0.0-0.1); Basophils % 1.4 %; Eosinophils # 0.1 10^3/uL (0.0-0.8); Eosinophils % 1.7 %; Hematocrit 30.8 % (37-53); Lymphocytes # 0.8 10^3/uL (0.8-4.8); Lymphocytes % 10.4 %; Mean Corpuscular HGB Conc 32.1 g/dL (30-55); Mean Corpuscular Volume 90.3 fl (82-101); Mean Platelet Volume 9.4 fL (7.4-10.4); Monocytes # 0.6 10^3/uL (0.2-0.9); Monocytes % 7.8 %; Neutrophils # 6.15 10^3/uL (1.8-7.7); Neutrophils % 78.3 %; Nucleated Red Blood Cells % 0 %; Platelet Count 362 10^3/cmm (157-399); Red Blood Count 3.41 10^6/uL (3.85-5.65); Red Cell Distribution Width 14.9 % (12.1-15.1); White Blood Count 7.85 10^3/uL (3.29-11.43)
[2023-03-09 08:15] LABS: Alanine Aminotransferase 38 U/L (0-41); Albumin Level 3.8 g/dL (3.5-5.2); Alkaline Phosphatase 152 U/L (40-130); Anion Gap 13.9 (5-19); Aspartate Amino Transferase 39 U/L (0-40); Blood Urea Nitrogen 14 mg/dL (8-23); Calcium 10.2 mg/dL (8.5-10.5); Carbon Dioxide 27 mmol/L (22-29); Chloride 102 mmol/L (98-107); Globulin 3.2 g/dL (1.3-4.6); Glucose 133 mg/dL (65-115); Lactate Dehydrogenase 289 U/L (135-225); Osmolality Calculated 288 mOsm/kg (285-295); Potassium 4.9 mmol/L (3.5-5.1); Sodium 138 mmol/L (136-145); Total Bilirubin 0.2 mg/dL (0.15-1.2)
== END 2023-03-15 23:59 | disposition home or self-care (01) ==
PROVIDERS: PCP Internal Medicine; Visit Provider Nurse Practitioner Family
DX: C85.80 Other specified types of non-Hodgkin lymphoma, unspecified site (principal); Z79.899 Other long term (current) drug therapy
CPT/HCPCS: 36415; 80053; 83615; 85025; 99214

== ENCOUNTER 2023-03-29 14:08 | Outpatient (CLI) | payer MEDICARE, SELFPAY ==
[2023-03-29 14:13] LABS: D Dimer 2.79 ug/mLFEU (0-0.59)
== END 2023-03-29 14:09 | disposition home or self-care (01) ==
PROVIDERS: PCP Internal Medicine; Visit Provider Nurse Practitioner Family
DX: R06.00 Dyspnea, unspecified (principal)
CPT/HCPCS: 85378

== ENCOUNTER 2023-03-29 16:40 | Emergency (ER) | payer MEDICARE, SELFPAY ==
[2023-03-29 17:18] VITALS: BP 97/59; PULSE 97; RESP 16; TEMP 37.3; O2SAT 95; BMI 20.7
[2023-03-29 17:44] LABS: Basophils % 0.7 %; Eosinophils % 0.2 %; Hematocrit 29.5 % (37-53); Lymphocytes # 0.4 10^3/uL (0.8-4.8); Lymphocytes % 7.5 %; Mean Corpuscular HGB Conc 32.5 g/dL (30-55); Mean Corpuscular Hemoglobin 28.5 pg (27-33); Mean Corpuscular Volume 87.5 fl (82-101); Mean Platelet Volume 9.8 fL (7.4-10.4); Monocytes # 0.5 10^3/uL (0.2-0.9); Monocytes % 8.3 %; Neutrophils # 4.88 10^3/uL (1.8-7.7); Nucleated Red Blood Cells % 0 %; Platelet Count 182 10^3/cmm (157-399); Red Blood Count 3.37 10^6/uL (3.85-5.65); Red Cell Distribution Width 14.7 % (12.1-15.1); White Blood Count 5.88 10^3/uL (3.29-11.43)
[2023-03-29 18:09] LABS: D Dimer 2.55 ug/mLFEU (0-0.59)
[2023-03-29 18:27] LABS: Alanine Aminotransferase 24 U/L (0-41); Albumin Level 3.6 g/dL (3.5-5.2); Alkaline Phosphatase 93 U/L (40-130); Anion Gap 13.8 (5-19); Aspartate Amino Transferase 32 U/L (0-40); Blood Urea Nitrogen 16 mg/dL (8-23); Calcium 9.3 mg/dL (8.5-10.5); Carbon Dioxide 25 mmol/L (22-29); Chloride 101 mmol/L (98-107); Globulin 3.1 g/dL (1.3-4.6); Glucose 107 mg/dL (65-115); Osmolality Calculated 282 mOsm/kg (285-295); Potassium 4.8 mmol/L (3.5-5.1); Sodium 135 mmol/L (136-145); Total Bilirubin 0.2 mg/dL (0.15-1.2); Total Protein 6.7 g/dL (6.6-8.7)
--- NOTE | 2023-03-29 18:34 | CTR_ITS ---
PROCEDURE INFORMATION: Exam: CTA Chest With Contrast Exam date and time: 03/29/2023 7:59 PM Age: 77 years old Clinical indication: Shortness of breath; Additional info: SOB TECHNIQUE: Imaging protocol: Computed tomographic angiography of the chest with contrast. Exam focused on the arteries. 3D rendering (Not supervised by radiologist): MIP and/or 3D reconstructed images were created by the technologist. Radiation optimization: All CT scans at this facility use at least one of these dose optimization techniques: automated exposure control; mA and/or kV adjustment per patient size (includes targeted exams where dose is matched to clinical indication); or iterative reconstruction. Contrast material: OMNI 350; Contrast volume: 100 ml; Contrast route: INTRAVENOUS (IV); REPORTING DATA: Count of CT and Cardiac NM exams in prior 12 months: This patient has received 9 known CTs and 0 known cardiac nuclear medicine studies in the 12 months prior to the current study. COMPARISON: [place] [id number] 01/31/2023 2:01 AM RADIATION DOSE METRICS: Total DLP (mGy-cm): 332 FINDINGS: Pulmonary arteries: No pulmonary embolus or aortic dissection. Aorta: Calcification of the thoracic aorta and/or great vessels consistent with atherosclerotic vessel disease. Lungs: Grossly stable 5.4 x 1.7 cm right extrapleural soft tissue density which could represent pulmonary infarct versus scarring versus other lesion. Pleural spaces: Right apical pleural and/or parenchymal scarring. Heart: Unremarkable. No cardiomegaly. No pericardial effusion. Coronary arteries: Stable severe calcified coronary artery disease. Lymph nodes: Unremarkable. No enlarged lymph nodes. Bones/joints: Stable total left shoulder replacement with metallic artifact. Soft tissues: Unremarkable. CT/CT angio chest PE protcl [id number] IMPRESSION: 1. No pulmonary embolus or aortic dissection. 2. Stable severe calcified coronary artery disease. 3. Grossly stable 5.4 x 1.7 cm right extrapleural soft tissue density which could represent pulmonary infarct versus scarring versus other lesion.
--- NOTE | 2023-03-29 18:43 | W.ED.SOB ---
HPI - SOB/Dyspnea General: Chief Complaint: Shortness of Breath/Dyspnea Stated Complaint: sent over for ct, looking for blood clots Time Seen by Provider: 03/29/23 18:34 Source: patient Mode of arrival: ambulatory Limitations: no limitations History of Present Illness: HPI Narrative: 77-year-old male who states has been feeling short of breath last 2 days he is seen at [facility] had a positive COVID test that also tequila a D-dimer there that was elevated was sent here for a CTA of his chest to rule out a PE. Patient denies any chest pain he is in no distress here denies any worsening proving factors. Associated symptoms: Deny abdominal pain, chest pain, fever(s), nausea or vomiting Review of Systems Const: Denies: fever(s), chills, body aches or change in appetite ENMT: Denies: throat pain or dental pain Card: Denies: chest pain Resp: Reports: dyspnea GI: Denies: abdominal pain, nausea, vomiting or diarrhea : Denies: dysuria Musc: Denies: neck pain or back pain Skin/Breast: Denies: rash Neuro: Denies: headache(s) PFSH ED PFSH: Medical History Abrasion of knee, bilateral Acute CVA (cerebrovascular accident) Acute on chronic anemia Acute upper GI bleeding Alcohol abuse Anemia Anorexia Ex-smoker for more than 1 year Generalized weakness Hemorrhagic shock History of exposure to asbestos History of Hodgkin's lymphoma diagnosed in 2013, treated with ABVD with good result History of PFTs Immunosuppression Iron deficiency anemia Marginal zone lymphoma identified in 2020 and 2021, observant management Neuropathy Onychomycosis Osteoarthritis Peripheral neuropathy Physical deconditioning Primary Sjogren's syndrome Recurrent falls Rib fractures Right knee meniscal tear Seropositive rheumatoid arthritis of multiple joints Shock Thoracic outlet syndrome Weight loss Surgical History History of arthroplasty of left shoulder History of arthroplasty of right hip History of revision of total replacement of right hip joint Status post colonoscopy Status post surgery Bilateral chest surgery for thoracic outlet syndrome Family History Other Cancer Dementia Diabetes Denies family history of CAD (coronary artery disease) Clotting disorder Hyperlipidemia Psychiatric illness Chronic kidney disease (CKD) Suicide Anesthesia complication Bleeding disorder Lung disease Hypertension Stroke Social History Smoking and tobacco/nicotine status: former use of tobacco/nicotine Quit status (tobacco/nicotine): has quit using Year quit tobacco: 2010 [id number] Second hand smoke exposure: No Alcohol intake: current Alcohol intake frequency: 0-2 Drinks per Day Alcohol type: beer Substance/Drug Use: never Caregiver/support person: No Lives independently: No Household members: other Housing: Shelter Marital status: / service: No Current occupational status: retired Pets and animals: Yes Do you think of yourself as: Straight/Heterosexual Current gender identity: Male Physical Exam Const: COMMON NORMALS: no acute distress, patient oriented x3 and healthy appearing HENMT: COMMON NORMALS: normocephalic and atraumatic HEAD & SCALP: normocephalic and atraumatic Neck/C-Spine: COMMON NORMALS: full ROM and supple Chest: COMMONS NORMALS: normal inspection of the chest Resp: COMMON NORMALS: normal respiratory effort and clear to auscultation bilaterally AUSCULTATION: clear to auscultation bilaterally Cardio: COMMON NORMALS: regular rate, regular rhythm and No murmurs present (Cardio) RATE: regular rate RHYTHM: regular rhythm GI: COMMON NORMALS: Normal to inspection, nondistended, normoactive bowel sounds present, Soft to palpation, non-tender and no masses PALPATION: Yes Soft to palpation Extremity: COMMON NORMALS: normal to inspection and full ROM Neuro: COMMON NORMALS: patient oriented x3, moves all extremities and no focal motor deficits Psych: COMMON NORMALS: mental status grossly normal, Normal thought process present and cooperative THOUGHT PROCESS: Normal thought process present Skin: COMMON NORMALS: no rashes or lesions noted and no wounds GENERAL SKIN EXAM: no rashes or lesions noted Course Vital Signs: Vital signs: Vital Signs Temperature 99.2 F 03/29/23 17:18 Pulse Rate 81 03/29/23 20:12 Respiratory Rate 16 03/29/23 20:12 Blood Pressure 115/74 03/29/23 20:12 Pulse Oximetry 96 03/29/23 20:12 Oxygen Delivery Me thod Room Air 03/29/23 19:38 MDM - SOB/Dyspnea Medical Decision Making Patient presents here with dyspnea did test positive for COVID he was sent here as he had a positive D-dimer and concern for possible PE his CT here showed no acute findings he is stable for discharge he had no hypoxia he is to follow-up with PCP and return if worsening. Medical Records I reviewed the patient's medical records. Lab Data I reviewed the patient's lab results. 03/29/23 17:35 03/29/23 17:35 Labs/Radiology: Radiology Impressions Chest CTA 03/29/23 18:34 IMPRESSION: 1. No pulmonary embolus or aortic dissection. 2. Stable severe calcified coronary artery disease. 3. Grossly stable 5.4 x 1.7 cm right extrapleural soft tissue density which could represent pulmonary infarct versus scarring versus other lesion. Laboratory Results WBC 5.88 10^3/uL (3.29-11.43) 03/29/23 17:35 RBC 3.37 10^6/uL (3.85-5.65) L 03/29/23 17:35 Hgb 9.60 g/dL (11.27-16.99) L 03/29/23 17:35 Hct 29.5 % (37-53) L 03/29/23 17:35 MCV 87.5 fl (82-101) 03/29/23 17:35 MCH 28.5 pg (27-33) 03/29/23 17:35 MCHC 32.5 g/dL (30-55) 03/29/23 17:35 RDW 14.7 % (12.1-15.1) 03/29/23 17:35 Plt Count 182 10^3/cmm (157-399) 03/29/23 17:35 MPV 9.8 fL (7.4-10.4) 03/29/23 17:35 Neut % (Auto) 83.0 % 03/29/23 17:35 Lymph % (Auto) 7.5 % 03/29/23 17:35 [place] % (Auto) 8.3 % 03/29/23 17:35 Eos % (Auto) 0.2 % 03/29/23 17:35 Baso % (Auto) 0.7 % 03/29/23 17:35 Neut # (Auto) 4.88 10^3/uL (1.8-7.7) 03/29/23 17:35 Lymph # (Auto) 0.4 10^3/uL (0.8-4.8) L 03/29/23 17:35 [place] # (Auto) 0.5 10^3/uL (0.2-0.9) 03/29/23 17:35 Eos # (Auto) 0.0 10^3/uL (0.0-0.8) 03/29/23 17:35 Baso # (Auto) 0.0 10^3/uL (0.0-0.1) 03/29/23 17:35 Nucleated RBC % (auto) 0 % 03/29/23 17:35 Nucleated RBCs # 0.0 /100WBC 03/29/23 17:35 D-Dimer 2.55 ug/mLFEU (0-0.59) H 03/29/23 17:35 Sodium 135 mmol/L (136-145) L 03/29/23 17:35 Potassium 4.8 mmol/L (3.5-5.1) 03/29/23 17:35 Chloride 101 mmol/L (98-107) 03/29/23 17:35 Carbon Dioxide 25 mmol/L (22-29) 03/29/23 17:35 Anion Gap 13.8 (5-19) 03/29/23 17:35 BUN 16 mg/dL (8-23) 03/29/23 17:35 Creatinine 0.8 mg/dL (0.7-1.2) 03/29/23 17:35 GFR Calculation Not Reportable 03/29/23 17:35 Glucose 107 mg/dL (65-115) 03/29/23 17:35 Calculated Osmolality 282 mOsm/kg (285-295) L 03/29/23 17:35 Calcium 9.3 mg/dL (8.5-10.5) 03/29/23 17:35 Total Bilirubin 0.2 mg/dL (0.15-1.2) 03/29/23 17:35 AST 32 U/L (0-40) 03/29/23 17:35 ALT 24 U/L (0-41) 03/29/23 17:35 Alkaline Phosphatase 93 U/L (40-130) 03/29/23 17:35 Total Protein 6.7 g/dL (6.6-8.7) 03/29/23 17:35 Albumin 3.6 g/dL (3.5-5.2) 03/29/23 17:35 Globulin 3.1 g/dL (1.3-4.6) 03/29/23 17:35 All radiology interpretation(s) finalized by discharge EKG Data EKG 1: I personally reviewed and interpreted this EKG as follows: EKG Interpretation Date: 03/29/23 EKG interpretation time: 18:45 Interpretation: nsr hr [address] elevation qrs 108 qtc 389 Discharge Plan Discharge Patient Disposition: Home Clinical Impression: COVID-19 Condition: Stable Prescriptions: No Action ferrous sulfate 325 mg (65 mg iron) tablet 325 mg PO BID@0800,2000 Hold Instructions: Resume on 03/07/23. [id number] oil-vit D3 300-1,000-1,000 mg-mg-unit capsule 1 cap PO DAILY@0800 magnesium 200 mg tablet 400 mg PO DAILY@0800 selenium 100 mcg tablet 100 mcg PO DAILY@0800 glucosamine HCl 750 mg tablet 1,500 mg PO DAILY@0800 artificial saliva (yerbas-lyt) Aerosol,[place] 1 spray mucous membrane Q4H PRN (Reason: dry mouth) Qty: 59 3RF Rx Instructions: administer while awake (DME) Custom inserts or similar See Rx Instructions .Route .MEDSUPPLY Qty: 1 0RF Rx Instructions: to atorvastatin 40 mg tablet 40 mg PO DAILY midodrine 5 mg tablet 5 mg PO TID Rx Instructions: do not give last dose of day after 6PM or within 4 hrs of bedtime aspirin [Adult Low Dose Aspirin] 81 mg tablet,delayed release (DR/EC) 81 mg PO DAILY saw palmetto 450 mg capsule 450 mg PO BID Rx Instructions: give with food (meal/snack) folic acid 1 mg tablet 1 mg PO DAILY@0800 Qty: 90 1RF sulfasalazine 500 mg tablet 0.5 g PO BID@0800,2000 Qty: 180 1RF Rx Instructions: give with food (meal/snack) hydroxychloroquine 200 mg tablet 200 mg PO BID Qty: 180 2RF Multivitamin 50 Plus Tablet 1 tab PO DAILY@0800 bisacodyl [Dulcolax (bisacodyl)] 10 mg Suppository 10 mg NH DAILY PRN (Reason: Constipation) Fleet Enema 19-7 gram/118 mL Enema 118 ml NH DAILY PRN (Reason: Constipation) sennosides-docusate sodium [Stool Softener-Laxative] 8.6-50 mg Tablet 2 tab PO BID Qty: 14 0RF magnesium hydroxide [Milk of Magnesia] 400 mg/5 mL Suspension 30 ml PO DAILY Qty: 600 0RF hydrocodone-acetaminophen 5-325 mg tablet 1 tab PO Q6H PRN (Reason: pain) polyethylene glycol 3350 17 gram/dose Powder 4 g PO DAILY Dry Eye Relief 1-0.2-0.2 % Drops 2 drp OPHTHALMIC (EYE) DAILY PRN (Reason: Dry Eye(S)) Biotene Dry Mouth Oral Rinse Mouthwash 15 ml MUCOUS MEMBRANE 5XD PRN (Reason: Dry Mouth) Rx Instructions: swish for 15-30 secs , then spit out; do not swallow ondansetron HCl 8 mg Tablet 8 mg PO Q6H PRN (Reason: Nausea And Vomiting) Discharge Orders: Discharge ED (Routine); Ordered 03/29/23 Ordered By: Danny Stone Referrals: Barrie Bhatt DO [Primary Care Provider] - 1-3 days Discharge Diet: Advance as tolerated Discharge Activity: Resume usual activity Patient Instructions: COVID-19 (Coronavirus Disease 2019) (ED) Coding Level of Care Code ED Magnetic Prospecting Operator for Chadwick Velasquez
--- NOTE | 2023-03-29 18:45 | ECG_ITS ---
[facility] Test Date: 2023-03-29 Pat Name: Peng Cooper Department: Room: Gender: Male Attending Pathologist: : 1945 Requested By: Danny Stone Order Number: [id number] Gena MD: Cj Mukherjee M.D. Measurements Intervals [place] Rate: 82 P: 6 UT: 180 QRS: -3 QRSD: 108 T: 51 QT: 350 QTc: 411 Interpretive Statements SINUS RHYTHM Compared to ECG 02/23/2023 10:42:36 Sinus tachycardia no longer present Electronically Signed On 03-29-2023 23:20:39 PACU RN by Cj Mukherjee M.D. [id number]
[2023-03-29 19:09] VITALS: BP 98/64; PULSE 86; RESP 22; O2SAT 95; O2SAT 96
[2023-03-29 19:38] VITALS: BP 105/66; PULSE 86; RESP 17; O2SAT 96
[2023-03-29] MEDS: sodium chloride 0.9% 1,000 ML 999 ML IV (19:38)
[2023-03-29] MEDS: iohexol 350 mg/mL 500 mL Btl (per mL) IV (20:06)
[2023-03-29 20:12] VITALS: BP 115/74; PULSE 81; RESP 16; O2SAT 96
[2023-03-29 21:17] VITALS: BP 115/74; PULSE 81; RESP 16; TEMP 37.3; O2SAT 96
== END 2023-03-29 21:18 | disposition home or self-care (01) ==
PROVIDERS: Emergency Medicine; Emergency Provider Emergency Medicine; PCP Internal Medicine
DX: U07.1 COVID-19 (principal); Z79.82 Long term (current) use of aspirin; I25.10 Atherosclerotic heart disease of native coronary artery without angina pectoris; Z87.891 Personal history of nicotine dependence; Z86.73 Personal history of transient ischemic attack (TIA), and cerebral infarction without residual deficits; Z85.71 Personal history of Hodgkin lymphoma; R06.00 Dyspnea, unspecified
CPT/HCPCS: 36415; 71275; 80053; 85025; 85378; 93005; 96360; 96361; 99285; J7030; Q9967

== ENCOUNTER → 2023-04-11 09:38 | Outpatient (BNVA) | payer MEDICARE, SELFPAY | PROVIDERS: PCP Internal Medicine; Visit Provider Podiatrist Foot & Ankle Surgery | DX: B35.1 Tinea unguium (principal); I73.9 Peripheral vascular disease, unspecified; G89.29 Other chronic pain; L84 Corns and callosities; G62.9 Polyneuropathy, unspecified | CPT/HCPCS: 11055; 11721 ==

== ENCOUNTER → 2023-04-20 14:05 | Outpatient (BNVA) | payer MEDICARE, SELFPAY | PROVIDERS: PCP Internal Medicine; Visit Provider Internal Medicine | DX: M25.512 Pain in left shoulder (principal) | CPT/HCPCS: 20610; 99214; J1030 ==

== ENCOUNTER 2023-06-29 20:09 | Observation (INO) | payer OTHER, MEDICARE, SELFPAY ==
[2023-06-29 20:10] VITALS: BP 114/51; PULSE 79; RESP 22; TEMP 36.8; O2SAT 94; BMI 16.6
--- NOTE | 2023-06-29 20:31 | ED_ITS ---
Documented by User: Uche Haney DO 07/07/23 10:47 HPI - General Adult 2 General: Chief complaint: General Medical Stated complaint: generalized pain Time Seen by Provider: 06/29/23 20:16 History of Present Illness: Patient presents to the ER complaining of generalized pain all over. Patient says he has rheumatoid arthritis and is already taken his daily allotment of oxycodone and has not helped. Patient said he aches in the knees the hips the shoulders and hands. Patient does see a mopper Dr. Herrera per the note last visit with Dr. Herrera was April 20, 2023 where he ordered lab work on the patient that does not appear in the patient's chart. Review of Systems 2 General: Reports: 10 or more systems reviewed and unremarkable except in HPI and below PFSH ED 2 PFSH: Medical History (Updated 07/05/23 @ 00:01 by TASHA Dunn) Compression fracture Bladder mass Abdominal pain Ileus Compression fracture Hypoxia Abdominal pain Rheumatoid arthritis flare Acute kidney injury Weakness Constipation Malaise Osteoarthritis of left knee Rotator cuff syndrome of right shoulder Shock History of fall Hemorrhagic shock Acute upper GI bleeding Abrasion of knee, bilateral Acute on chronic anemia Anorexia Acute CVA (cerebrovascular accident) Rib fractures Recurrent falls Anemia Weight loss Neuropathy History of PFTs Physical deconditioning Alcohol abuse Generalized weakness Marginal zone lymphoma identified in 2020 and 2021, observant management Peripheral neuropathy Onychomycosis Ex-smoker for more than 1 year History of exposure to asbestos Thoracic outlet syndrome Osteoarthritis Immunosuppression Iron deficiency anemia History of Hodgkin's lymphoma diagnosed in 2013, treated with ABVD with good result Right knee meniscal tear Seropositive rheumatoid arthritis of multiple joints Primary Sjogren's syndrome Surgical History Status post surgery Bilateral chest surgery for thoracic outlet syndrome Status post colonoscopy History of revision of total replacement of right hip joint History of arthroplasty of right hip History of arthroplasty of left shoulder Family History Other Cancer Dementia Diabetes Denies family history of CAD (coronary artery disease) Clotting disorder Hyperlipidemia Psychiatric illness Chronic kidney disease (CKD) Suicide Anesthesia complication Bleeding disorder Lung disease Hypertension Stroke Social History Smoking and tobacco/nicotine status: former use of tobacco/nicotine Quit status (tobacco/nicotine): has quit using Year quit tobacco: 2010 [id number] Second hand smoke exposure: No Alcohol intake: current Alcohol intake frequency: 0-2 Drinks per Day Alcohol type: beer Substance/Drug Use: never Caregiver/support person: No Lives independently: No Household members: other Housing: Alf Marital status: / service: No Current occupational status: retired Pets and animals: Yes Do you think of yourself as: Straight/Heterosexual Current gender identity: Male Physical Exam 2 Const: COMMON NORMALS: no acute distress, average body habitus, patient oriented x3, no limitations, healthy appearing, alert and well nourished HENMT: COMMON NORMALS: normocephalic, atraumatic, hearing grossly normal bilaterally, external ears normal, Normal external nose present, moist oral mucous membranes and oropharynx normal HEAD & SCALP: normocephalic and atraumatic NOSE: Normal external nose present EXTERNAL EAR: Yes external ears normal Neck/C-Spine: COMMON NORMALS: full ROM, no lymphadenopathy, supple, no meningeal signs, no JVD and Thyroid normal THYROID: Thyroid normal Chest: COMMONS NORMALS: normal inspection of the chest and normal palpation of entire chest wall Resp: COMMON NORMALS: normal respiratory effort, No retractions, No use of accessory muscles and clear to auscultation bilaterally AUSCULTATION: clear to auscultation bilaterally Cardio: COMMON NORMALS: no JVD, regular rate, regular rhythm, S1 normal heart sound present, S2 normal heart sound present, No gallops present (Cardio), No clicks present (Cardio), No murmurs present (Cardio) and No rub (Cardio) R ATE: regular rate RHYTHM: regular rhythm HEART SOUNDS: S1 normal heart sound present and S2 normal heart sound present GI: COMMON NORMALS: Normal to inspection, nondistended, normoactive bowel sounds present, Soft to palpation, non-tender, No hepatosplenomegaly present and no masses PALPATION: Yes Soft to palpation and Yes No hepatosplenomegaly present Neuro: COMMON NORMALS: patient oriented x3 SENSORIUM/ORIENTATION: Yes alert MENINGEAL SIGNS: Yes no meningeal signs Course 2 Vital Signs: Vital signs: Vital Signs Temperature 98.3 F 07/04/23 13:51 Pulse Rate 93 07/04/23 13:51 Respiratory Rate 18 07/04/23 13:51 Blood Pressure 96/66 07/04/23 13:51 Pulse Oximetry 95 07/04/23 13:51 Oxygen Delivery Me thod Room Air 07/04/23 12:00 Oxygen Flow Rate 3 07/03/23 08:55 MDM - General Adult Differential Diagnosis Rheumatoid arthritis flareup, polyarthropathy Medical Records I reviewed the patient's medical records. Lab Data I reviewed the patient's lab results. 07/03/23 05:30 07/04/23 04:35 Radiology Impressions Abdomen/Pelvis CT 06/29/23 23:36 IMPRESSION: 1. Moderate gas distension of the colon . Moderate gas and fluid-filled distension of small bowel may indicate ileus or enteritis. No clear-cut transition point to suggest bowel obstruction at this time. 2. Large volume colonic stool/constipation. 3. A 3.7 cm bladder dome mass, not significantly changed from 01/22/2023. Moderate chronic urinary bladder wall thickening likely due to outlet obstruction secondary to prostatomegaly, with or without cystitis. 4. Nrni-ri-klfszsua central compression fracture of L3 is new from the prior study, indeterminate age. 5. Ynjm-dq-cqtzisqa retroperitoneal adenopathy , slightly more pronounced since 01/22/2023. Laboratory Results WBC 11.37 10^3/uL (3.29-11.43) 06/29/23 21:10 RBC 3.39 10^6/uL (3.85-5.65) L 06/29/23 21:10 Hgb 9.30 g/dL (11.27-16.99) L 06/30/23 01:54 Hct 28.1 % (37-53) L 06/29/23 21:10 MCV 82.9 fl (82-101) 06/29/23 21:10 MCH 28.0 pg (27-33) 06/29/23 21:10 MCHC 33.8 g/dL (30-55) 06/29/23 21:10 RDW 14.0 % (12.1-15.1) 06/29/23 21:10 Plt Count 227 10^3/cmm (157-399) 06/29/23 21:10 MPV 9.6 fL (7.4-10.4) 06/29/23 21:10 Neut % (Auto) 87.9 % 06/29/23 21:10 Lymph % (Auto) 4.0 % 06/29/23 21:10 [place] % (Auto) 7.1 % 06/29/23 21:10 Eos % (Auto) 0.2 % 06/29/23 21:10 Baso % (Auto) 0.2 % 06/29/23 21:10 Neut # (Auto) 9.99 10^3/uL (1.8-7.7) H 06/29/23 21:10 Lymph # (Auto) 0.5 10^3/uL (0.8-4.8) L 06/29/23 21:10 [place] # (Auto) 0.8 10^3/uL (0.2-0.9) 06/29/23 21:10 Eos # (Auto) 0.0 10^3/uL (0.0-0.8) 06/29/23 21:10 Baso # (Auto) 0.0 10^3/uL (0.0-0.1) 06/29/23 21:10 Nucleated RBC % (auto) 0 % 06/29/23 21:10 Nucleated RBCs # 0.0 /100WBC 06/29/23 21:10 Sodium 133 mmol/L (136-145) L 06/29/23 21:10 Potassium 3.4 mmol/L (3.5-5.1) L 06/29/23 21:10 Chloride 97 mmol/L (98-107) L 06/29/23 21:10 Carbon Dioxide 24 mmol/L (22-29) 06/29/23 21:10 Anion Gap 15.4 (5-19) 06/29/23 21:10 BUN 25 mg/dL (8-23) H 06/29/23 21:10 Creatinine 1.1 mg/dL (0.7-1.2) 06/29/23 21:10 GFR Calculation Not Reportable 06/29/23 21:10 Glucose 149 mg/dL (65-115) H 06/29/23 21:10 Calculated Osmolality 283 mOsm/kg (285-295) L 06/29/23 21:10 Lactic Acid 1.5 mmol/L (0.5-2.2) 06/29/23 21:10 Calcium 9.2 mg/dL (8.5-10.5) 06/29/23 21:10 Total Bilirubin 0.7 mg/dL (0.15-1.2) 06/29/23 21:10 AST 42 U/L (0-40) H 06/29/23 21:10 ALT 33 U/L (0-41) 06/29/23 21:10 Alkaline Phosphatase 187 U/L (40-130) H 06/29/23 21:10 Creatine Kinase 168 U/L (39-308) 06/30/23 01:54 C-Reactive Protein 242.3 mg/L (0.0-4.9) H 06/29/23 21:10 Total Protein 7.0 g/dL (6.6-8.7) 06/29/23 21:10 Albumin 3.2 g/dL (3.5-5.2) L 06/29/23 21:10 Globulin 3.8 g/dL (1.3-4.6) 06/29/23 21:10 Random Cortisol 55.63 ug/dL (2.47-19.5) H 06/29/23 21:10 Urine Color Yellow (Yellow) 06/29/23 22:43 Urine Appearance Clear (CLEAR) 06/29/23 22:43 Urine pH 5 (5-7) 06/29/23 22:43 Ur Specific [place] 1.020 (1.005-1.030) 06/29/23 22:43 Urine Protein Trace (Negative) 06/29/23 22:43 Urine Glucose (UA) Norm (Normal) 06/29/23 22:43 Urine Ketones Negative (Negative) 06/29/23 22:43 Urine Blood Neg (Negative) 06/29/23 22:43 Urine Nitrate Negative (Negative) 06/29/23 22:43 Urine Bilirubin Neg (Negative) 06/29/23 22:43 Urine Urobilinogen Neg mg/dL (Negative) 06/29/23 22:43 Ur Leukocyte Esterase Negative (Negative) 06/29/23 22:43 Urine RBC None /hpf (0-2) 06/29/23 22:43 Urine WBC None /hpf (0-5) 06/29/23 22:43 Ur Squamous Epith Cells None /hpf (0-5) 06/29/23 22:43 Amorphous Sediment Not Reportable 06/29/23 22:43 Urine Bacteria 1+ /hpf (NONE) H 06/29/23 22:43 Urine Mucus 2+ /hpf 06/29/23 22:43 All radiology interpretation(s) finalized by discharge Discharge Plan Discharge Patient Disposition: Admitted As Inpatient Admit Provider: Itz Guardado Clinical Impression: Ileus, Abdominal pain Condition: Stable Coding Level of Care Code ED 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 Documented by User: Rajendra Barry MD 07/04/23 20:23 HPI - General Adult 2 General: Chief complaint: General Medical Stated complaint: generalized pain Time Seen by Provider: 06/29/23 20:16 PFSH ED 2 PFSH: Medical History (Updated 07/05/23 @ 00:01 by TASHA Dunn) Compression fracture Bladder mass Abdominal pain Ileus Compression fracture Hypoxia Abdominal pain Rheumatoid arthritis flare Acute kidney injury Weakness Constipation Malaise Osteoarthritis of left knee Rotator cuff syndrome of right shoulder Shock History of fall Hemorrhagic shock Acute upper GI bleeding Abrasion of knee, bilateral Acute on chronic anemia Anorexia Acute CVA (cerebrovascular accident) Rib fractures Recurrent falls Anemia Weight loss Neuropathy History of PFTs Physical deconditioning Alcohol abuse Generalized weakness Marginal zone lymphoma identified in 2020 and 2021, observant management Peripheral neuropathy Onychomycosis Ex-smoker for more than 1 year History of exposure to asbestos Thoracic outlet syndrome Osteoarthritis Immunosuppression Iron deficiency anemia History of Hodgkin's lymphoma diagnosed in 2013, treated with ABVD with good result Right knee meniscal tear Seropositive rheumatoid arthritis of multiple joints Primary Sjogren's syndrome Surgical History Status post surgery Bilateral chest surgery for thoracic outlet syndrome Status post colonoscopy History of revision of total replacement of right hip joint History of arthroplasty of right hip History of arthroplasty of left shoulder Family History Other Cancer Dementia Diabetes Denies family history of CAD (coronary artery disease) Clotting disorder Hyperlipidemia Psychiatric illness Chronic kidney disease (CKD) Suicide Anesthesia complication Bleeding disorder Lung disease Hypertension Stroke Social History Smoking and tobacco/nicotine status: former use of tobacco/nicotine Quit status (tobacco/nicotine): has quit using Year quit tobacco: 2010 [id number] Second hand smoke exposure: No Alcohol intake: current Alcohol intake frequency: 0-2 Drinks per Day Alcohol type: beer Substance/Drug Use: never Caregiver/support person: No Lives independently: No Household members: other Housing: Alf Marital status: / service: No Current occupational status: retired Pets and animals: Yes Do you think of yourself as: Straight/Heterosexual Current gender identity: Male Course 2 Vital Signs: Vital signs: Vital Signs Temperature 98.3 F 07/04/23 13:51 Pulse Rate 93 07/04/23 13:51 Respiratory Rate 18 07/04/23 13:51 Blood Pressure 96/66 07/04/23 13:51 Pulse Oximetry 95 07/04/23 13:51 Oxygen Delivery Me thod Room Air 07/04/23 12:00 Oxygen Flow Rate 3 07/03/23 08:55 [facility] - General Adult Medical Decision Making Review the patient's labs demonstrated elevated potassium CT scan findings demonstrate concerns for ileus/small bowel obstruction. I have contacted the hospitalist physician to request admission for additional evaluation treatment and care. Lab Data 07/03/23 05:30 07/04/23 04:35 Radiology Impressions Abdomen/Pelvis CT 06/29/23 23:36 IMPRESSION: 1. Moderate gas distension of the colon . Moderate gas and fluid-filled distension of small bowel may indicate ileus or enteritis. No clear-cut transition point to suggest bowel obstruction at this time. 2. Large volume colonic stool/constipation. 3. A 3.7 cm bladder dome mass, not significantly changed from 01/22/2023. Moderate chronic urinary bladder wall thickening likely due to outlet obstruction secondary to prostatomegaly, with or without cystitis. 4. Yxxm-qh-jxnjjknt central compression fracture of L3 is new from the prior study, indeterminate age. 5. Foaw-rh-qvadigab retroperitoneal adenopathy , slightly more pronounced since 01/22/2023. Laboratory Results WBC 11.37 10^3/uL (3.29-11.43) 06/29/23 21:10 RBC 3.39 10^6/uL (3.85-5.65) L 06/29/23 21:10 Hgb 9.30 g/dL (11.27-16.99) L 06/30/23 01:54 Hct 28.1 % (37-53) L 06/29/23 21:10 MCV 82.9 fl (82-101) 06/29/23 21:10 MCH 28.0 pg (27-33) 06/29/23 21:10 MCHC 33.8 g/dL (30-55) 06/29/23 21:10 RDW 14.0 % (12.1-15.1) 06/29/23 21:10 Plt Count 227 10^3/cmm (157-399) 06/29/23 21:10 MPV 9.6 fL (7.4-10.4) 06/29/23 21:10 Neut % (Auto) 87.9 % 06/29/23 21:10 Lymph % (Auto) 4.0 % 06/29/23 21:10 [place] % (Auto) 7.1 % 06/29/23 21:10 Eos % (Auto) 0.2 % 06/29/23 21:10 Baso % (Auto) 0.2 % 06/29/23 21:10 Neut # (Auto) 9.99 10^3/uL (1.8-7.7) H 06/29/23 21:10 Lymph # (Auto) 0.5 10^3/uL (0.8-4.8) L 06/29/23 21:10 [place] # (Auto) 0.8 10^3/uL (0.2-0.9) 06/29/23 21:10 Eos # (Auto) 0.0 10^3/uL (0.0-0.8) 06/29/23 21:10 Baso # (Auto) 0.0 10^3/uL (0.0-0.1) 06/29/23 21:10 Nucleated RBC % (auto) 0 % 06/29/23 21:10 Nucleated RBCs # 0.0 /100WBC 06/29/23 21:10 Sodium 133 mmol/L (136-145) L 06/29/23 21:10 Potassium 3.4 mmol/L (3.5-5.1) L 06/29/23 21:10 Chloride 97 mmol/L (98-107) L 06/29/23 21:10 Carbon Dioxide 24 mmol/L (22-29) 06/29/23 21:10 Anion Gap 15.4 (5-19) 06/29/23 21:10 BUN 25 mg/dL (8-23) H 06/29/23 21:10 Creatinine 1.1 mg/dL (0.7-1.2) 06/29/23 21:10 GFR Calculation Not Reportable 06/29/23 21:10 Glucose 149 mg/dL (65-115) H 06/29/23 21:10 Calculated Osmolality 283 mOsm/kg (285-295) L 06/29/23 21:10 Lactic Acid 1.5 mmol/L (0.5-2.2) 06/29/23 21:10 Calcium 9.2 mg/dL (8.5-10.5) 06/29/23 21:10 Total Bilirubin 0.7 mg/dL (0.15-1.2) 06/29/23 21:10 AST 42 U/L (0-40) H 06/29/23 21:10 ALT 33 U/L (0-41) 06/29/23 21:10 Alkaline Phosphatase 187 U/L (40-130) H 06/29/23 21:10 Creatine Kinase 168 U/L (39-308) 06/30/23 01:54 C-Reactive Protein 242.3 mg/L (0.0-4.9) H 06/29/23 21:10 Total Protein 7.0 g/dL (6.6-8.7) 06/29/23 21:10 Albumin 3.2 g/dL (3.5-5.2) L 06/29/23 21:10 Globulin 3.8 g/dL (1.3-4.6) 06/29/23 21:10 Random Cortisol 55.63 ug/dL (2.47-19.5) H 06/29/23 21:10 Urine Color Yellow (Yellow) 06/29/23 22:43 Urine Appearance Clear (CLEAR) 06/29/23 22:43 Urine pH 5 (5-7) 06/29/23 22:43 Ur Specific [place] 1.020 (1.005-1.030) 06/29/23 22:43 Urine Protein Trace (Negative) 06/29/23 22:43 Urine Glucose (UA) Norm (Normal) 06/29/23 22:43 Urine Ketones Negative (Negative) 06/29/23 22:43 Urine Blood Neg (Negative) 06/29/23 22:43 Urine Nitrate Negative (Negative) 06/29/23 22:43 Urine Bilirubin Neg (Negative) 06/29/23 22:43 Urine Urobilinogen Neg mg/dL (Negative) 06/29/23 22:43 Ur Leukocyte Esterase Negative (Negative) 06/29/23 22:43 Urine RBC None /hpf (0-2) 06/29/23 22:43 Urine WBC None /hpf (0-5) 06/29/23 22:43 Ur Squamous Epith Cells None /hpf (0-5) 06/29/23 22:43 Amorphous Sediment Not Reportable 06/29/23 22:43 Urine Bacteria 1+ /hpf (NONE) H 06/29/23 22:43 Urine Mucus 2+ /hpf 06/29/23 22:43 Discharge Plan Discharge Patient Disposition: Admitted As Inpatient Admit Provider: Itz Guardado Clinical Impression: Ileus, Abdominal pain Condition: Stable Coding Level of Care Code ED 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
[2023-06-29] MEDS: dexamethasone 10 mg/mL INJ IVP (21:14)
[2023-06-29] MEDS: sodium chloride 0.9% 1,000 ML 999 ML IV ×2 (21:14→21:48)
[2023-06-29] MEDS: ketorolac 30 mg/mL INJ IVP (21:14)
[2023-06-29 21:17] LABS: Basophils % 0.2 %; Eosinophils % 0.2 %; Hematocrit 28.1 % (37-53); Lymphocytes # 0.5 10^3/uL (0.8-4.8); Mean Corpuscular HGB Conc 33.8 g/dL (30-55); Mean Corpuscular Volume 82.9 fl (82-101); Mean Platelet Volume 9.6 fL (7.4-10.4); Monocytes # 0.8 10^3/uL (0.2-0.9); Monocytes % 7.1 %; Neutrophils # 9.99 10^3/uL (1.8-7.7); Neutrophils % 87.9 %; Nucleated Red Blood Cells % 0 %; Platelet Count 227 10^3/cmm (157-399); Red Blood Count 3.39 10^6/uL (3.85-5.65); White Blood Count 11.37 10^3/uL (3.29-11.43)
[2023-06-29 21:31] LABS: Alanine Aminotransferase 33 U/L (0-41); Albumin Level 3.2 g/dL (3.5-5.2); Alkaline Phosphatase 187 U/L (40-130); Anion Gap 15.4 (5-19); Aspartate Amino Transferase 42 U/L (0-40); Blood Urea Nitrogen 25 mg/dL (8-23); C Reactive Protein 242.3 mg/L (0.0-4.9); Calcium 9.2 mg/dL (8.5-10.5); Carbon Dioxide 24 mmol/L (22-29); Chloride 97 mmol/L (98-107); Creatinine Clr Calc Pharmacy 34.9356; Globulin 3.8 g/dL (1.3-4.6); Glucose 149 mg/dL (65-115); Osmolality Calculated 283 mOsm/kg (285-295); Potassium 3.4 mmol/L (3.5-5.1); Sodium 133 mmol/L (136-145); Total Bilirubin 0.7 mg/dL (0.15-1.2)
[2023-06-29 21:45] VITALS: BP 68/41
--- NOTE | 2023-06-29 21:48 | PC.NURSE ---
Dr Haney notified of last charted BP. Verbal order given to bolus 1L NS.
[2023-06-29 22:04] VITALS: BP 76/49; PULSE 68; O2SAT 90
[2023-06-29 22:28] VITALS: BP 82/56; PULSE 75; RESP 24
[2023-06-29 23:05] LABS: Add Urine Microscopic? YES; Bilirubin Urine Neg (Negative); Blood Urine Neg (Negative); Glucose Urine UA Norm (Normal); Ketones Urine Negative (Negative); Leukocyte Esterase Urine Negative (Negative); Nitrate Urine Negative (Negative); Protein Urine Trace (Negative); Urine Appearance Clear (CLEAR); Urine Color Yellow (Yellow); Urobilinogen Urine Neg (Negative); pH Urine 5 (5-7)
[2023-06-29 23:06] LABS: Add Urine Culture? No; Bacteria Urine 1+ /hpf; Mucus Urine 2+ /hpf
[2023-06-29 23:12] VITALS: BP 101/58; PULSE 69; RESP 18; O2SAT 100
[2023-06-29 23:23] VITALS: BP 107/57; PULSE 70; RESP 18
--- NOTE | 2023-06-29 23:36 | XRR_ITS ---
PROCEDURE INFORMATION: Exam: XR Chest Exam date and time: 06/29/2023 11:51 PM Age: 77 years old Clinical indication: Cough. History of lymphoma. TECHNIQUE: Imaging protocol: Radiologic exam of the chest. Views: 1 view. COMPARISON: CT angio chest PE protcl [id number] 03/29/2023 7:59 PM FINDINGS: Tubes, catheters and devices: Multiple surgical clips projecting over the right upper hemithorax and left axilla again noted. Features of underlying emphysema and moderate bibasilar chronic reticular changes again noted, mildly increased especially in the left base. Lungs: 5 cm peripheral pleural-based opacity in the right midlung zone is unchanged from 03/29/2023. Pleural spaces: Small right pleural effusion. Linear lucency over the right hemithorax peripherally could represent a skin fold versus a small pneumothorax. Heart/Mediastinum: Stable cardiac silhouette size in the upper limits of normal. Tortuous ectatic thoracic aorta again noted. Bones/joints: Left reverse glenohumeral arthroplasty is without evident radiographic complications. Diffuse osteopenia. Chronic fracture of the lateral right 8th rib and 9th rib again noted. XR/XR chest 1V portable [id number] IMPRESSION: 1. Skin fold versus overlying the right chest less likely a small right pneumothorax. Repeat upright AP and left lateral decubitus AP chest radiographs recommended for clarification. 2. Chronic patchy bibasilar opacities could potentially obscure new early pneumonitis, please correlate clinically. Other chronic findings detailed above.
--- NOTE | 2023-06-29 23:36 | CTR_ITS ---
PROCEDURE INFORMATION: Exam: CT Abdomen And Pelvis With Contrast Exam date and time: 06/30/2023 12:03 AM Age: 77 years old Clinical indication: Abdominal pain; Generalized; Prior surgery; Surgery date: 6+ months; Surgery type: Hip; Patient HX: Lymphoma; Additional info: Abd pain TECHNIQUE: Imaging protocol: Computed tomography of the abdomen and pelvis with contrast. Radiation optimization: All CT scans at this facility use at least one of these dose optimization techniques: automated exposure control; mA and/or kV adjustment per patient size (includes targeted exams where dose is matched to clinical indication); or iterative reconstruction. Contrast material: OMNI 350; Contrast volume: 80 ml; Contrast route: INTRAVENOUS (IV); COMPARISON: [place] [id number] 01/31/2023 2:01 AM RADIATION DOSE METRICS: Total DLP (mGy-cm): 411.92 FINDINGS: Lungs: Lung bases: Moderate chronic linear scarring and mild traction bronchiectasis as well as bullous emphysema again noted. Liver: Subcentimeter hypodensity in the left lobe (series 3, image 22 and right lobe (image 18), not further characterized. Gallbladder and bile ducts: Normal. No calcified stones. No ductal dilation. Pancreas: Rhkk-qj-zrjysfzo diffuse atrophy.. No ductal dilation. Spleen: Normal. No splenomegaly. Adrenal glands: Normal. No mass. Kidneys and ureters: Normal. No hydronephrosis. Stomach and bowel: Mild diffuse gastric wall thickening. Large volume colonic stool. Moderate gas-filled distension of the colon and small bowel. Appendix: No evidence of appendicitis. Intraperitoneal space: Unremarkable. No free air. No significant fluid collection. Vasculature: Ectatic descending thoracic aorta again noted. Lymph nodes: mzqy-tk-vsvtdzjm retroperitoneal adenopathy up to 1.9 cm, slightly increased. Urinary bladder: Moderate diffuse urinary bladder wall thickening similar to prior. A 3.6 x 1.7 cm mass in the left bladder dome is unchanged 01/22/2023. Reproductive: Moderately enlarged prostate. Bones/joints: Remote lower rib fractures again demonstrated. Moderate multilevel lumbar spondylosis. Partially imaged right hip arthroplasty with evidence of chronic loosening or particle disease. Chronic partially calcified 4.6 x 3.3 cm collection along the medial right pelvic sidewall is unchanged. Mild concave compression fracture of L3 with up to 20% central height loss is new from 01/22/2023. Diffuse osteopenia. Mild chronic compression of the superior endplate of L2 and T12 is unchanged. Soft tissues: Surgical clips again noted in the right inguinal canal. CT/CT abdomen pelvis w con* [id number] IMPRESSION: 1. Moderate gas distension of the colon . Moderate gas and fluid-filled distension of small bowel may indicate ileus or enteritis. No clear-cut transition point to suggest bowel obstruction at this time. 2. Large volume colonic stool/constipation. 3. A 3.7 cm bladder dome mass, not significantly changed from 01/22/2023. Moderate chronic urinary bladder wall thickening likely due to outlet obstruction secondary to prostatomegaly, with or without cystitis. 4. Uxhq-bu-chgjmghq central compression fracture of L3 is new from the prior study, indeterminate age. 5. Cjkb-hb-fnmwlpvz retroperitoneal adenopathy , slightly more pronounced since 01/22/2023.
[2023-06-30] VITALS (15 sets, daily range): BP systolic 91–132; BP diastolic 56–80; PULSE 61–85; RESP 14–18; TEMP 36.4–36.5; O2SAT 93–100
[2023-06-30] MEDS: iohexol 350 mg/mL 500 mL Btl (per mL) IV (00:07)
[2023-06-30 00:09] LABS: Lactic Sepsis W/Reflex 1.5 mmol/L (0.5-2.2)
--- NOTE | 2023-06-30 01:27 | XRR_ITS ---
PROCEDURE INFORMATION: Exam: XR Chest Exam date and time: 06/30/2023 1:39 AM Age: 77 years old Clinical indication: Dyspnea TECHNIQUE: Imaging protocol: Radiologic exam of the chest. Views: 2 views. COMPARISON: CR (CHEST, ) 06/29/2023 11:51 PM FINDINGS: Lungs: Unchanged bibasilar patchy opacification. Pleural spaces: Unchanged lenticular right pleural mass reaching up to 3.8 cm. Unchanged right costophrenic angle blunting. Interval loss of skin fold versus small pneumothorax. Heart/Mediastinum: Unremarkable. No cardiomegaly. Diaphragm: Unchanged right diaphragmatic eventration. Bones/joints: Redemonstrated total left glenohumeral joint arthroplasty. Soft tissues: Redemonstrated upper chest wall postsurgical changes. XR/XR chest 2V* [id number] IMPRESSION: Interval loss of skin fold versus small pneumothorax of the right lateral chest wall. Otherwise, unchanged exam.
[2023-06-30 01:58] LABS: Cortisol Random 55.63 ug/dL (2.47-19.5)
[2023-06-30 02:56] LABS: Creatine Phosphokinase 168 U/L (39-308)
--- NOTE | 2023-06-30 02:59 | P.HP_ITS ---
Providers/Chief Complaint 2 Admitting Physician: Itz Guardado Primary Care Provider: Barrie Bhatt DO Chief Complaint: generalized pain History of Present Illness Pleasant 77-year-old gentleman with history of rheumatoid arthritis following with rheumatology presented due to generalized pains, especially in his hands, but with some pain all over despite taking his usual oxycodone. In ER he was given a dose of Toradol as well as Decadron. A little bit later during his stay he was found to be hypotensive, 68/41, received 2 L of fluid boluses. Subsequently complaining of abdominal pain and tenderness. CT abdomen pelvis was obtained with noted moderate gas distention of the colon, moderate gas/fluid filled distention of small bowel, possibly ileus versus enteritis. No clear-cut transition point. Large volume colonic stool/constipation. 3.7 cm bladder dome mass not significantly changed from 01/22/2023. Noted moderate chronic urinary bladder wall thickening likely due to outlet obstruction secondary to prostatomegaly with or without cystitis. Mild to moderate central compression fracture of L3 is new from the prior study. Indeterminate age. Mild to moderate retroperitoneal adenopathy slightly more pronounced since 01/22/2023. He is also noted with new oxygen requirement 3 L by nasal cannula. Repeat chest x-ray obtained with interval loss of skinfold versus small pneumothorax on the right lateral chest wall. Otherwise unchanged. Chest x-ray also with noted localized abnormality in the right thorax, on x-ray felt to be possibly skinfold versus small pneumothorax, but has had a previous solid structure there on CT. Also incidentally noted chronic patchy bibasilar opacities. On reassessment his abdominal pain is improving. He is still having generalized joint and body pains. He is found to have a large skin tear on the lateral right elbow/proximal forearm after a fall yesterday. At home he was by himself. His daughter lives in [place]. He states that he has some friends coming into check on him and help him out. Review of Systems 2 Const: Reports: body aches; Denies: fever(s), chills or malaise ENMT: Denies: throat pain Card: Denies: chest pain, edema, pre-syncope or dyspnea on exertion Resp: Denies: dyspnea, productive cough, change in phlegm color or hemoptysis GI: Reports: abdominal pain; Denies: nausea, vomiting, diarrhea, constipation, hematochezia or melena : Denies: flank pain, difficulty urinating, urinary frequency or hematuria Musc: Reports: joint pain Skin/Breast: Denies: rash or new lesions Medications/Allergies Home Medications Medication Instructions Recorded Confirmed Last Taken Type ferrous sulfate 325 mg (65 mg 325 mg PO BID@0800,199906/19/19 04/20/23 02/23/23 History iron) tablet magnesium 200 mg tablet 400 mg PO DAILY@79906/19/19 04/20/23 02/23/23 History us-4-nmj-epa-fish oil-vit D3 300 1 cap PO DAILY@79906/19/19 04/20/23 02/23/23 History mg-1,000 mg-1,000 unit capsule selenium 100 mcg tablet 100 mcg PO DAILY@79906/19/19 04/20/23 02/23/23 History yvwdldjxzmdu-uhgkjigf-cwcoku 1 tab PO DAILY@79906/16/20 04/20/23 02/23/23 History tablet (Multivitamin 50 Plus tablet) artificial saliva (yerba [place] and 1 spray mucous membrane Q4H PRN 01/04/22 04/20/23 01/25/23 Rx lytes) spray dry mouth #59 mL glucosamine HCl 750 mg tablet 1,500 mg PO DAILY@79901/04/22 04/20/23 02/23/23 History Custom inserts or similar #1 ea 06/21/22 04/20/23 Unknown Rx bisacodyl 10 mg rectal suppository 10 mg AR DAILY PRN Constipation 01/31/23 04/20/23 01/24/23 History (Dulcolax (bisacodyl)) sodium phosphates 19 gram-7 118 ml AR DAILY PRN Constipation 01/31/23 04/20/23 01/24/23 History gram/118 mL enema (Fleet Enema) magnesium hydroxide 400 mg/5 mL 30 ml PO DAILY #600 mL 02/03/23 04/20/23 02/23/23 Rx oral suspension (Milk of Magnesia) sennosides 8.6 mg-docusate sodium 2 tab PO BID #14 tabs 02/03/23 04/20/23 02/23/23 Rx 50 mg tablet (Stool Softener-Laxative) hydrocodone 5 mg-acetaminophen 325 1 tab PO Q6H PRN pain 02/23/23 04/20/23 Unknown History mg tablet ondansetron HCl 8 mg tablet 8 mg PO Q6H PRN Nausea And Vomiting 02/23/23 04/20/23 02/23/23 History peg [id number]-hjekmyuv 1 2 drp ophthalmic (eye) DAILY PRN 02/23/23 04/20/23 Unknown History %-0.2 %-0.2 % eye drops (Dry Eye Dry Eye(S) Relief) polyethylene glycol 3350 17 4 g PO DAILY 02/23/23 04/20/23 02/23/23 History gram/dose oral powder saliva substitute combo no.9 15 ml mucous membrane 5XD PRN Dry 02/23/23 04/20/23 Unknown History (Biotene Dry Mouth Oral Rinse Mouth mouthwash) aspirin 81 mg tablet,delayed 81 mg PO DAILY 03/09/23 04/20/23 Unknown History release (Adult Low Dose Aspirin) atorvastatin 40 mg tablet 40 mg PO DAILY 03/09/23 04/20/23 Unknown History midodrine 5 mg tablet 5 mg PO TID 03/09/23 04/20/23 Unknown History saw palmetto 450 mg capsule 450 mg PO BID 03/09/23 04/20/23 Unknown History folic acid 1 mg tablet 1 mg PO DAILY@0800 #90 tabs 05/24/23 Unknown Rx sulfasalazine 500 mg tablet 0.5 g PO BID@0800,2000 #180 tabs 05/24/23 Unknown Rx hydroxychloroquine 200 mg tablet 200 mg PO BID #180 tabs 06/03/23 Unknown Rx Allergies Allergy/AdvReac Type Severity Reaction Status Date / Time No Known Allergies Allergy Verified 06/29/23 20:18 PFSH Acute 2 PFSH: Medical History (Updated 06/30/23 @ 05:19 by Itz Guardado MD) Shock History of fall Hemorrhagic shock Acute upper GI bleeding Abrasion of knee, bilateral Acute on chronic anemia Anorexia Acute CVA (cerebrovascular accident) Rib fractures Recurrent falls Anemia Weight loss Neuropathy History of PFTs Physical deconditioning Alcohol abuse Generalized weakness Marginal zone lymphoma identified in 2020 and 2021, observant management Peripheral neuropathy Onychomycosis Ex-smoker for more than 1 year History of exposure to asbestos Thoracic outlet syndrome Osteoarthritis Immunosuppression Iron deficiency anemia History of Hodgkin's lymphoma diagnosed in 2014, treated with ABVD with good result Right knee meniscal tear Seropositive rheumatoid arthritis of multiple joints Primary Sjogren's syndrome Surgical History Status post surgery Bilateral chest surgery for thoracic outlet syndrome Status post colonoscopy History of revision of total replacement of right hip joint History of arthroplasty of right hip History of arthroplasty of left shoulder Family History Other Cancer Dementia Diabetes Denies family history of CAD (coronary artery disease) Clotting disorder Hyperlipidemia Psychiatric illness Chronic kidney disease (CKD) Suicide Anesthesia complication Bleeding disorder Lung disease Hypertension Stroke Social History Smoking and tobacco/nicotine status: former use of tobacco/nicotine Quit status (tobacco/nicotine): has quit using Year quit tobacco: 2010 [id number] Second hand smoke exposure: No Alcohol intake: current Alcohol intake frequency: 0-2 Drinks per Day Alcohol type: beer Substance/Drug Use: never Caregiver/support person: No Lives independently: No Household members: other Housing: Detention Marital status: / service: No Current occupational status: retired Pets and animals: Yes Do you think of yourself as: Straight/Heterosexual Current gender identity: Male Vitals/I&O/Wt Last Vital Signs Temp 98.3 F 06/29/23 20:10 Pulse 61 06/30/23 02:04 Resp 16 06/30/23 02:04 BP 120/65 06/30/23 02:04 Pulse Ox 98 06/30/23 02:04 O2 Del Method Nasal Cannula 06/30/23 02:04 O2 Flow Rate 3 06/30/23 02:04 06/29/23 06/29/23 06/30/23 14:59 22:59 06:59 Intake Total 1666 / 1666 Balance 1666 / 1666 Weight last 48 hrs Weight 45.359 kg Physical Exam 2 Const: COMMON NORMALS: patient oriented x3 and alert GENERAL APPEARANCE: c ooperative and frail appearing ORIENTATION/CONSCIOUSNESS: Yes awake HENMT: COMMON NORMALS: oropharynx normal Neck/C-Spine: COMMON NORMALS: no JVD Resp: COMMON NORMALS: normal respiratory effort and clear to auscultation bilaterally AUSCULTATION: clear to auscultation bilaterally Cardio: COMMON NORMALS: no JVD, regular rhythm, S1 normal heart sound present, S2 normal heart sound present and No murmurs present (Cardio) RHYTHM: regular rhythm HEART SOUNDS: S1 normal heart sound present and S2 normal heart sound present GI: COMMON NORMALS: Normal to inspection, nondistended, normoactive bowel sounds present, Soft to palpation and non-tender PALPATION: Yes Soft to palpation Extremity: COMMON NORMALS: no joint enlargement and no pedal edema N ARRATIVE EXTREMITY EXAM: Diffuse joint deformities through the body. Data 06/30/23 01:54 06/29/23 21:10 A&P Assessment and plan (1) Rheumatoid arthritis flare: With diffuse joint pain, body aches, received Toradol and Decadron dose in ER. Subsequently with some hypotension, received 2 L of boluses. Recheck hemoglobin due to recent GI bleed and gastritis as well as esophageal ulcer, hemoglobin so far without significant decrease 9.3. Follow-up again further this morning. For now hold off on further NSAIDs and steroid, reassess hemoglobin due to recent GI bleed. Continue PPI, switch to IV. Acetaminophen, hydrocodone for pain. Discussed with him risk of further hypotension. (2) Shock: Blood pressure down to 60/41 in ER, received 2 L of fluid boluses. Monitor blood pressure. Check serum cortisol, WNL. Requesting TSH. Suspect possibly hypovolemic, it appears on the dry side. Reassess volume status. Does not otherwise meet SIRS or sepsis criteria at current time. Reviewed vitals, CBC, CMP, UA, chest x-ray, CT abdomen pelvis, ER note, discussed with ER physician. At risk of endorgan injury, renal dysfunction, liver injury, recheck chemistry. (3) Abdominal pain: Abdominal pain reported after hypotensive episode, possibly transient hypoperfusion/ischemia. CT abdomen pelvis with contrast was obtained. Noted some moderate gas distention, possible ileus versus enteritis. Large stool burden. Monitor and maintain blood pressure. Will give Dulcolax AR. Received fluid boluses. Reassess volume status. Consider additional hydration. Clear liquid diet trial for now. (4) Hypoxia: New oxygen requirement 3 L by nasal cannula, suspect following bolus administration. Hold off additional fluids for now. Reassess volume status, oxygenation. Will check COVID PCR. (5) Compression fracture: Incidentally noted L3 new central compression fracture. Possibly pathologic fracture given lymphoma, also noted bladder mass which will need follow- up/additional assessment. Requested bedrest for now. Acetaminophen, hydrocodone as needed for pain control. PT assessment. Plan Urinary bladder mass: Noted unchanged from January 2023. Will need follow-up. Rheumatoid arthritis Sjogren's syndrome History of CVA Marginal zone lymphoma with improvement management History of Hodgkin's lymphoma status posttreatment Other medical problems. Requesting home medications to be confirmed, please review and reconcile once available. Attestations 2 Medical Necessity Statement*: Place in observation for additional assessment management following shock, hypovolemia, gentleman with rheumatoid arthritis flare, recent hemorrhagic shock and acute blood loss anemia with gastritis, esophageal ulcer. Diagnoses Rheumatoid arthritis flare M06.9 Shock R57.9 Abdominal pain R10.9 Hypoxia R09.02 Compression fracture
[2023-06-30] MEDS: pantoprazole 40 mg SDV IVP ×2 (03:32→15:40)
[2023-06-30] MEDS: heparin 5,000 unit/mL INJ 1 mL 5000 UNIT SUBCUT ×2 (03:32→15:40)
[2023-06-30 05:21] LABS: Basophils % 0.1 %; Hematocrit 28.6 % (37-53); Lymphocytes # 0.2 10^3/uL (0.8-4.8); Lymphocytes % 2.1 %; Mean Corpuscular HGB Conc 33.2 g/dL (30-55); Mean Corpuscular Hemoglobin 27.9 pg (27-33); Mean Corpuscular Volume 83.9 fl (82-101); Mean Platelet Volume 10.1 fL (7.4-10.4); Monocytes # 0.2 10^3/uL (0.2-0.9); Monocytes % 1.6 %; Neutrophils % 95.8 %; Nucleated Red Blood Cells % 0 %; Platelet Count 236 10^3/cmm (157-399); Red Blood Count 3.41 10^6/uL (3.85-5.65); White Blood Count 11.17 10^3/uL (3.29-11.43)
[2023-06-30 05:53] LABS: Alanine Aminotransferase 34 U/L (0-41); Alkaline Phosphatase 179 U/L (40-130); Aspartate Amino Transferase 41 U/L (0-40); Blood Urea Nitrogen 25 mg/dL (8-23); Calcium 8.8 mg/dL (8.5-10.5); Carbon Dioxide 22 mmol/L (22-29); Chloride 101 mmol/L (98-107); Creatinine Clr Calc Pharmacy 52.6484; Globulin 3.7 g/dL (1.3-4.6); Glucose 174 mg/dL (65-115); Magnesium 2.2 mg/dL (1.7-2.3); Osmolality Calculated 287 mOsm/kg (285-295); Sodium 134 mmol/L (136-145); Thyroid Stimulating Hormone 1.71 uIU/mL (0.27-4.20); Total Bilirubin 0.5 mg/dL (0.15-1.2); Total Protein 6.7 g/dL (6.6-8.7)
[2023-06-30] MEDS: bisacodyl 10 mg Supp PR (06:00)
[2023-06-30 07:57] LABS: Adenovirus Not Detected (NOT DETECT); Chlamydia Pneumoniae Not Detected (NOT DETECT); Coronavirus 229E,HKU1,NL63,OC4 Not Detected (NOT DETECT); Human Metapneumovirus Not Detected (NOT DETECT); Human Rhinovirus/Enterovirus Not Detected (NOT DETECT); Influenza A Not Detected (NOT DETECT); Influenza A H1 Not Detected (NOT DETECT); Influenza A H1-2009 Not Detected (NOT DETECT); Influenza A H3 Not Detected (NOT DETECT); Influenza B Not Detected (NOT DETECT); Mycoplasma Pneumoniae Not Detected (NOT DETECT); Parainfluenza Virus Type 1 Not Detected (NOT DETECT); Parainfluenza Virus Type 2 Not Detected (NOT DETECT); Parainfluenza Virus Type 3 Not Detected (NOT DETECT); Parainfluenza Virus Type 4 Not Detected (NOT DETECT); Respiratory Syncytial Virus A Not Detected (NOT DETECT); Respiratory Syncytial Virus B Not Detected (NOT DETECT); SARS-COV-2 Not Detected (NOT DETECT)
[2023-06-30] MEDS: HYDROcodone-acetaminophen 10-325 mg Tablet 1 TAB PO ×2 (09:41→23:03)
--- NOTE | 2023-06-30 10:17 | W.PM.EVENTAC ---
Event Note Event Note: Patient does not take steroids on daily basis Follows up with Dr. Herrera rheumatology clinic on every Tuesday via transportation Will give him appointment with Dr. Ireland Patient is stating that he uses a walker to ambulate at home He is not interested in nursing placement He lives alone Will give him steroid taper at the time of discharge Will add opioids along steroids during this visit complaining of joint pains all over his body I do not see any sign of septic joint
[2023-06-30] MEDS: methylPREDNISolone sod succ 125 mg/2 mL INJ 60 MG IVP ×2 (12:00→22:54)
[2023-06-30] MEDS: hydroxychloroquine 200 mg Tablet PO (17:09)
[2023-06-30] MEDS: ketorolac 30 mg/mL INJ 15 MG IVP (19:55)
[2023-06-30] MEDS: sulfaSALAzine 500 mg Tablet PO (19:55)
[2023-07-01] VITALS (9 sets, daily range): BP systolic 105–146; BP diastolic 60–79; PULSE 54–71; RESP 14–18; TEMP 36.4–36.8; O2SAT 96–99; BMI 23.5
[2023-07-01] MEDS: pantoprazole 40 mg SDV IVP ×2 (03:29→15:20)
[2023-07-01] MEDS: heparin 5,000 unit/mL INJ 1 mL 5000 UNIT SUBCUT ×2 (03:29→15:20)
[2023-07-01 05:07] LABS: Basophils % 0.1 %; Lymphocytes # 0.4 10^3/uL (0.8-4.8); Lymphocytes % 3.1 %; Mean Corpuscular HGB Conc 33.2 g/dL (30-55); Mean Corpuscular Hemoglobin 27.6 pg (27-33); Mean Corpuscular Volume 83.1 fl (82-101); Mean Platelet Volume 9.8 fL (7.4-10.4); Monocytes # 0.6 10^3/uL (0.2-0.9); Monocytes % 4.1 %; Neutrophils # 13.08 10^3/uL (1.8-7.7); Neutrophils % 92.3 %; Nucleated Red Blood Cells % 0 %; Platelet Count 260 10^3/cmm (157-399); Red Blood Count 3.37 10^6/uL (3.85-5.65); Red Cell Distribution Width 14.3 % (12.1-15.1); White Blood Count 14.17 10^3/uL (3.29-11.43)
[2023-07-01 05:24] LABS: Alanine Aminotransferase 41 U/L (0-41); Albumin Level 2.7 g/dL (3.5-5.2); Alkaline Phosphatase 171 U/L (40-130); Anion Gap 14.3 (5-19); Aspartate Amino Transferase 47 U/L (0-40); Blood Urea Nitrogen 36 mg/dL (8-23); Calcium 8.9 mg/dL (8.5-10.5); Carbon Dioxide 22 mmol/L (22-29); Chloride 100 mmol/L (98-107); Creatinine Clr Calc Pharmacy 47.8622; Globulin 3.5 g/dL (1.3-4.6); Glucose 142 mg/dL (65-115); Osmolality Calculated 285 mOsm/kg (285-295); Potassium 4.3 mmol/L (3.5-5.1); Sodium 132 mmol/L (136-145); Total Bilirubin 0.2 mg/dL (0.15-1.2); Total Protein 6.2 g/dL (6.6-8.7)
[2023-07-01] MEDS: folic acid 1 mg Tablet PO (08:37)
[2023-07-01] MEDS: hydroxychloroquine 200 mg Tablet PO ×2 (08:37→17:12)
[2023-07-01] MEDS: HYDROcodone-acetaminophen 10-325 mg Tablet 1 TAB PO ×3 (08:37→19:55)
[2023-07-01] MEDS: sulfaSALAzine 500 mg Tablet PO ×2 (08:37→19:56)
--- NOTE | 2023-07-01 09:17 | PC.CHAP ---
Pastoral Care Encounter/Spiritual Assessment Type of Contact [] Declined chemical equipment controller visit [] Patient/Family/Request visit [] Outpatient visit [] Follow-up visit [] Physician referral [] Code/Alert [x] Routine visit [] Staff referral [] Actively dying [] Patient sleeping [] Family support [] [] Out of room [] Palliative care [] [] Receiving care in room [] Pre-surgical visit [] Trauma [] Long length of stay [] ICU visit [] Other: Relational/Emotional Strength [x] Patient feels connected with others/family/visitors/staff [] Distress [] Loneliness/isolation [] Abandonment Spirituality of Patient [x] Person of Radha [] Attends Gnosticism of their Radha [x] Believes in Prayer [] Reads Bible or Jew materials [] There are Spiritual issues to be addressed Group Fitness Instructor Interventions [x] Prayer [x] Active listening [] Non-anxious presence [x] Spiritual/emotional support [] Crisis/trauma care [] Spiritual counseling [] Bereavement support [] Provided bereavement packet [] Provided Bible/devotional materials [] Provided toy/stuffed animal, coloring book to patient or family member [] Provided Communion [] Anointing/[place] [] Salvation [x] Completed spiritual assessment [] Other: Impact on Illness or Injury [] Angry [] Fearful [] Anxious [] Often cries [] Exhaustion [] Unable to work [] Unable to attend yazidism [] Unable to walk/stand [] Unable to read [] Unable to drive [] Unable to eat/drink [] Unable to sleep [] Unable to be with family [] Patient intubated [] Other: Summary Time spent with patient 5 min
[2023-07-01] MEDS: methylPREDNISolone sod succ 125 mg/2 mL INJ 60 MG IVP ×2 (10:11→22:31)
--- NOTE | 2023-07-01 10:14 | P.PN_ITS ---
Subjective 2 Subjective: Patient is agreeable to go to SNF patient stating that his pain is slightly better When asked about the bladder mass patient stating that he has not seen any urologist, he is not sure if he has been told about malignancy Vitals/I&O/Wt Last Vital Signs Temp 97.6 F 07/01/23 07:56 Pulse 54 L 07/01/23 07:56 Resp 15 07/01/23 07:56 BP 132/72 07/01/23 07:56 Pulse Ox 97 07/01/23 07:56 O2 Del Method Nasal Cannula 07/01/23 07:56 O2 Flow Rate 3 06/30/23 20:00 06/30/23 07/01/23 07/01/23 22:59 06:59 14:59 Intake Total 360 / 720 360 / 360 Output Total 200 / 200 Balance 160 / 520 360 / 360 Weight last 48 hrs Weight 64.047 kg Weight 63.106 kg Weight 45.359 kg Physical Exam 2 Narrative: Patient looks dehydrated Eating breakfast GCS 15 Pleasant cooperative Nonfocal neuroexam Awake and alert Currently on 2 L nasal cannula Hemodynamically stable Data 07/01/23 04:57 07/01/23 04:57 A&P Assessment and plan (1) Ileus: (2) Abdominal pain: (3) Constipation: (4) Seropositive rheumatoid arthritis of multiple joints: (5) Rheumatoid arthritis flare: (6) Compression fracture: (7) Rotator cuff syndrome of right shoulder: (8) Osteoarthritis of left knee: Qualifiers: Osteoarthritis type: primary Qualified Code(s): M17.12 - Unilateral primary osteoarthritis, left knee (9) Hypoxia: (10) Weakness: (11) Malaise: Plan Constipation: Patient is tolerating diet Abdominal pain Will give 1 dose of mag citrate today Rheumatoid arthritis flare: Continue steroids Patient is stating that his pain is tolerable today Bladder mass he has not seen any urologist He is asking for transportation back and forth urology Compression fracture Debilitated rheumatoid arthritis Full code Uses a walker at home Disposition: SNF Appreciate PT notes, will do OT as well Appreciate case management help [facility] service will stay on board as well Attestations 2 Medical Necessity Statement*: Continue medical management Diagnoses Ileus K56.7 Abdominal pain R10.9 Constipation K59.00 Seropositive rheumatoid arthritis of multiple joints M05.79 Rheumatoid arthritis flare M06.9 Compression fracture Rotator cuff syndrome of right shoulder M75.101 Primary osteoarthritis of left knee M17.12 Osteoarthritis type: primary Hypoxia R09.02 Weakness R53.1 Malaise R53.81
--- NOTE | 2023-07-01 10:21 | XR_ITS ---
WS: [id number] Portable AP upright chest, 07/01/2023 Clinical Data: hypoxia Comparison: Portable chest, 06/30/2023 Findings: The bilateral lower lobe opacities remain the same. The extrapleural mass in the midportion of the right lung remains the same. The heart is normal. The aortic arch and descending thoracic aor ta show calcification and tortuosity. Monitor leads are on the chest wall. There are surgical clips o verlying the superior chest, more on the left than right. There is a left shoulder arthroplasty. Bella tor leads are on the chest wall. Impression: No change from yesterday's portable chest.
[2023-07-01] MEDS: magnesium citrate Btl 296 mL PO (10:40)
--- NOTE | 2023-07-01 11:23 | PC.SOCIAL ---
IMM Update pg 2 of IMM not updated as patient is currently in observation status.
[2023-07-02] VITALS (12 sets, daily range): BP systolic 101–154; BP diastolic 64–78; PULSE 63–78; RESP 16–18; TEMP 36.4–36.8; O2SAT 93–98
[2023-07-02] MEDS: HYDROcodone-acetaminophen 10-325 mg Tablet 1 TAB PO ×3 (00:24→15:26)
[2023-07-02] MEDS: heparin 5,000 unit/mL INJ 1 mL 5000 UNIT SUBCUT ×2 (02:33→15:26)
[2023-07-02] MEDS: pantoprazole 40 mg SDV IVP ×2 (04:01→15:26)
[2023-07-02 04:16] LABS: Basophils % 0.1 %; Hematocrit 26.9 % (37-53); Lymphocytes # 0.3 10^3/uL (0.8-4.8); Lymphocytes % 3.1 %; Mean Corpuscular HGB Conc 33.8 g/dL (30-55); Mean Corpuscular Volume 82.8 fl (82-101); Mean Platelet Volume 9.9 fL (7.4-10.4); Monocytes # 0.3 10^3/uL (0.2-0.9); Monocytes % 3.3 %; Neutrophils # 8.34 10^3/uL (1.8-7.7); Neutrophils % 92.8 %; Nucleated Red Blood Cells % 0 %; Platelet Count 279 10^3/cmm (157-399); Red Blood Count 3.25 10^6/uL (3.85-5.65); Red Cell Distribution Width 14.3 % (12.1-15.1); White Blood Count 8.99 10^3/uL (3.29-11.43)
[2023-07-02 04:34] LABS: Alanine Aminotransferase 88 U/L (0-41); Albumin Level 2.8 g/dL (3.5-5.2); Alkaline Phosphatase 202 U/L (40-130); Anion Gap 10.7 (5-19); Aspartate Amino Transferase 133 U/L (0-40); Blood Urea Nitrogen 30 mg/dL (8-23); Calcium 8.7 mg/dL (8.5-10.5); Carbon Dioxide 26 mmol/L (22-29); Chloride 99 mmol/L (98-107); Creatinine Clr Calc Pharmacy 68.4767; Globulin 3.2 g/dL (1.3-4.6); Glucose 143 mg/dL (65-115); Osmolality Calculated 281 mOsm/kg (285-295); Potassium 4.7 mmol/L (3.5-5.1); Sodium 131 mmol/L (136-145); Total Bilirubin 0.2 mg/dL (0.15-1.2)
[2023-07-02] MEDS: folic acid 1 mg Tablet PO (07:59)
[2023-07-02] MEDS: hydroxychloroquine 200 mg Tablet PO ×2 (07:59→17:48)
[2023-07-02] MEDS: sulfaSALAzine 500 mg Tablet PO ×2 (07:59→20:55)
--- NOTE | 2023-07-02 09:16 | P.PN_ITS ---
Subjective 2 Subjective: Patient this morning stating that his pain has been about the same as yesterday however is intolerable He is asking for some medications related to dryness of his eyes No fever Hemodynamically stable Vitals/I&O/Wt Last Vital Signs Temp 97.5 F L 07/02/23 07:44 Pulse 74 07/02/23 07:44 Resp 17 07/02/23 07:44 BP 133/78 07/02/23 07:44 Pulse Ox 96 07/02/23 07:44 O2 Del Method Nasal Cannula 07/02/23 07:44 O2 Flow Rate 3 07/01/23 19:59 07/01/23 07/02/23 07/02/23 22:59 06:59 14:59 Intake Total 720 / 1320 360 / 360 Output Total 350 / 350 250 / 600 Balance 370 / 970 -250 / 720 360 / 360 Weight last 48 hrs Weight 69.4 kg Weight 64.047 kg Physical Exam 2 Narrative: Awake and alert No active sign of septic joint GCS 15 Abdomen soft Eating breakfast Resting tremors Pleasant cooperative Nonfocal neuroexam Currently on 1 to 2 L nasal cannula Data 07/02/23 03:00 07/02/23 03:00 A&P Assessment and plan (1) Constipation: (2) Ileus: (3) Abdominal pain: (4) Bladder mass: (5) Compression fracture: Plan Patient is requesting a fluid get get a hold of Dr. Herrera flue dust laborer when he is discharged I will arrange to follow-up He is willing to rescind his hospice status in order to avail 20 days of rehab [facility] will stay on board to see in case he would require hospice down the road DNR/DNI CODE STATUS Tolerating diet No sign of septic joint Plan to discharge him to SNF on Tuesday Will add artificial eyedrops Continue steroids Attestations 2 Medical Necessity Statement*: Discharge on Tuesday Diagnoses Constipation K59.00 Ileus K56.7 Abdominal pain R10.9 Bladder mass N32.89 Compression fracture
[2023-07-02] MEDS: methylPREDNISolone sod succ 125 mg/2 mL INJ 60 MG IVP ×2 (11:11→22:19)
[2023-07-02] MEDS: oxyCODONE-APAP 10-325 mg Tablet 1 TAB PO (22:24)
[2023-07-03] VITALS (11 sets, daily range): BP systolic 104–127; BP diastolic 53–72; PULSE 67–88; RESP 16–18; TEMP 36.5–36.8; O2SAT 93–98; BMI 23.6
[2023-07-03] MEDS: HYDROcodone-acetaminophen 10-325 mg Tablet 1 TAB PO ×3 (03:25→20:50)
[2023-07-03] MEDS: heparin 5,000 unit/mL INJ 1 mL 5000 UNIT SUBCUT ×2 (03:26→14:11)
[2023-07-03] MEDS: pantoprazole 40 mg SDV IVP ×2 (03:26→14:11)
[2023-07-03 05:57] LABS: Basophils % 0.1 %; Hematocrit 28.9 % (37-53); Lymphocytes # 0.6 10^3/uL (0.8-4.8); Mean Corpuscular HGB Conc 33.2 g/dL (30-55); Mean Corpuscular Hemoglobin 27.5 pg (27-33); Mean Corpuscular Volume 82.8 fl (82-101); Mean Platelet Volume 9.6 fL (7.4-10.4); Monocytes # 0.5 10^3/uL (0.2-0.9); Monocytes % 5.7 %; Neutrophils # 7.51 10^3/uL (1.8-7.7); Neutrophils % 85.2 %; Nucleated Red Blood Cells % 0 %; Platelet Count 289 10^3/cmm (157-399); Red Blood Count 3.49 10^6/uL (3.85-5.65); Red Cell Distribution Width 14.5 % (12.1-15.1); White Blood Count 8.82 10^3/uL (3.29-11.43)
[2023-07-03 06:14] LABS: Alanine Aminotransferase 92 U/L (0-41); Albumin Level 2.8 g/dL (3.5-5.2); Alkaline Phosphatase 199 U/L (40-130); Anion Gap 9.4 (5-19); Aspartate Amino Transferase 82 U/L (0-40); Blood Urea Nitrogen 21 mg/dL (8-23); Calcium 8.9 mg/dL (8.5-10.5); Carbon Dioxide 29 mmol/L (22-29); Chloride 99 mmol/L (98-107); Creatinine Clr Calc Pharmacy 68.4767; Globulin 3.2 g/dL (1.3-4.6); Glucose 118 mg/dL (65-115); Osmolality Calculated 278 mOsm/kg (285-295); Potassium 5.4 mmol/L (3.5-5.1); Sodium 132 mmol/L (136-145); Total Bilirubin 0.2 mg/dL (0.15-1.2)
[2023-07-03] MEDS: oxyCODONE-APAP 10-325 mg Tablet 1 TAB PO ×2 (08:05→18:15)
[2023-07-03] MEDS: sulfaSALAzine 500 mg Tablet PO ×2 (08:06→20:50)
[2023-07-03] MEDS: folic acid 1 mg Tablet PO (08:06)
[2023-07-03] MEDS: hydroxychloroquine 200 mg Tablet PO ×2 (08:06→18:16)
--- NOTE | 2023-07-03 10:13 | P.PN_ITS ---
Subjective 2 Subjective: Patient is stating that his pain is well-controlled He is asking for something for the dry mouth Vitals/I&O/Wt Last Vital Signs Temp 97.7 F 07/03/23 08:00 Pulse 82 07/03/23 08:55 Resp 18 07/03/23 08:05 BP 122/72 07/03/23 08:00 Pulse Ox 98 07/03/23 08:55 O2 Del Method Nasal Cannula 07/03/23 08:55 O2 Flow Rate 3 07/03/23 08:55 07/02/23 07/03/23 07/03/23 22:59 06:59 14:59 Intake Total 140 / 740 240 / 980 480 / 480 Output Total 1480 / 1780 700 / 700 Balance 140 / 440 -1240 / -800 -220 / -220 Weight last 48 hrs Weight 64.229 kg Weight 69.4 kg Physical Exam 2 Narrative: Awake and alert Eating breakfast GCS 15 Dry mucous membranes I do not see any redness in his eyes Currently on 3 L Awake and alert No active shortness of breath Data 07/03/23 05:30 07/03/23 05:30 A&P Assessment and plan (1) Weight loss: (2) Constipation: (3) Ileus: (4) Abdominal pain: (5) Bladder mass: (6) Acute kidney injury: (7) Seropositive rheumatoid arthritis of multiple joints: (8) Rheumatoid arthritis flare: (9) Hypoxia: (10) Malaise: (11) Weakness: Plan Discontinue steroids by tomorrow I will give him Medrol pack at the time of discharge He may continue hydroxychloroquine and sulfasalazine I have added artificial eyedrops Plan to discharge him to residential GI soft diet Pain well-managed no sign of septic joint DNR/DNI Ileus/constipation: Patient tolerated diet no vomiting, active bowel movement Attestations 2 Medical Necessity Statement*: Continue medical management Diagnoses Weight loss R63.4 Constipation K59.00 Ileus K56.7 Abdominal pain R10.9 Bladder mass N32.89 Acute kidney injury N17.9 Seropositive rheumatoid arthritis of multiple joints M05.79 Rheumatoid arthritis flare M06.9 Hypoxia R09.02 Malaise R53.81 Weakness R53.1
[2023-07-03] MEDS: sodium polystyrene sulfonate 15 gm/60 mL Btl PO (10:50)
[2023-07-03] MEDS: artificial tears Op Soln 15 mL Btl 1 DROP EYE-BOTH ×4 (10:50→20:50)
[2023-07-03] MEDS: methylPREDNISolone sod succ 125 mg/2 mL INJ 60 MG IVP ×2 (10:50→20:50)
[2023-07-04] VITALS (8 sets, daily range): BP systolic 96–114; BP diastolic 50–68; PULSE 71–93; RESP 16–18; TEMP 36.6–37.1; O2SAT 92–96; BMI 23.2
[2023-07-04] MEDS: oxyCODONE-APAP 10-325 mg Tablet 1 TAB PO ×2 (00:46→08:23)
[2023-07-04] MEDS: artificial tears Op Soln 15 mL Btl 1 DROP EYE-BOTH ×3 (02:02→11:45)
[2023-07-04] MEDS: heparin 5,000 unit/mL INJ 1 mL 5000 UNIT SUBCUT (02:03)
[2023-07-04 05:37] LABS: Anion Gap 9.4 (5-19); Blood Urea Nitrogen 20 mg/dL (8-23); Calcium 8.8 mg/dL (8.5-10.5); Carbon Dioxide 30 mmol/L (22-29); Chloride 100 mmol/L (98-107); Creatinine Clr Calc Pharmacy 65.9016; Glucose 125 mg/dL (65-115); Osmolality Calculated 282 mOsm/kg (285-295); Potassium 5.4 mmol/L (3.5-5.1); Sodium 134 mmol/L (136-145)
[2023-07-04] MEDS: sulfaSALAzine 500 mg Tablet PO (08:20)
[2023-07-04] MEDS: hydroxychloroquine 200 mg Tablet PO (08:20)
[2023-07-04] MEDS: folic acid 1 mg Tablet PO (08:20)
[2023-07-04] MEDS: pantoprazole 40 mg SDV IVP (08:21)
--- NOTE | 2023-07-04 10:11 | P.DS_ITS ---
Discharge Providers Date of Admission: 06/30/23 01:54 Date of Discharge: July 04, 2023 Attending Provider at Admission: Itz Guardado Attending Provider at Discharge: Avril Carcamo MD Primary Care Provider: Barrie Bhatt DO Diagnoses at Discharge Discharge Diagnosis (1) Weight loss: Status: Acute (2) Constipation: Status: Acute (3) Ileus: Status: Acute (4) Abdominal pain: Status: Acute (5) Bladder mass: Status: Acute (6) Acute kidney injury: Status: Acute (7) Seropositive rheumatoid arthritis of multiple joints: Status: Chronic (8) Rheumatoid arthritis flare: Status: Acute (9) Hypoxia: Status: Acute (10) Malaise: Status: Acute (11) Weakness: Status: Acute Reason for Visit Reason for Visit: generalized pain Hospital Course Hospital Course 77-year male who was on hospice, presented to the hospital for worsening of joint pains, he was diagnosed with ileus, constipation, bladder mass, patient is stating that he has not going for the biopsy of his bladder mass, we are not sure if it is cancer related, patient is stating that he lives alone, he was started on steroids for rheumatoid arthritis flare his symptoms improved with use of anti-inflammatory medications and steroids. His ileus resolved as well his hyperkalemia was treated with Kayexalate, he was kept on Plaquenil and sulfasalazine. Peer to peer review was done patient got approval to go to SNF for rehab, palliative/hospice company will follow along to see if you would deteriorate further and would need their help in future Patient is asking for referral to see rheumatology and urology Physical Exam Narrative: Pleasant cooperative No sign of septic joint GCS 15 Edentulous Nonfocal neuroexam Currently on room air Discharge Data Studies Completed and Pending Completed Studies During Hospitalization Category Date Time Status CT abdomen pelvis w con* [id number] Stat Cat Scan 06/29/23 23:36 Completed XR chest 1V portable [id number] Routine Exams 07/01/23 10:21 Completed XR chest 1V portable [id number] Stat Exams 06/29/23 23:36 Completed XR chest 2V* [id number] Stat Exams 06/30/23 01:27 Completed Radiology Impressions Abdomen/Pelvis CT 06/29/23 23:36 IMPRESSION: 1. Moderate gas distension of the colon . Moderate gas and fluid-filled distension of small bowel may indicate ileus or enteritis. No clear-cut transition point to suggest bowel obstruction at this time. 2. Large volume colonic stool/constipation. 3. A 3.7 cm bladder dome mass, not significantly changed from 01/22/2023. Moderate chronic urinary bladder wall thickening likely due to outlet obstruction secondary to prostatomegaly, with or without cystitis. 4. Ncdd-wq-ilqoirpp central compression fracture of L3 is new from the prior study, indeterminate age. 5. Mbwx-gv-dqyaawqe retroperitoneal adenopathy , slightly more pronounced since 01/22/2023. Laboratory Results WBC 8.82 10^3/uL (3.29-11.43) 07/03/23 05:30 RBC 3.49 10^6/uL (3.85-5.65) L 07/03/23 05:30 Hgb 9.60 g/dL (11.27-16.99) L 07/03/23 05:30 Hct 28.9 % (37-53) L 07/03/23 05:30 MCV 82.8 fl (82-101) 07/03/23 05:30 MCH 27.5 pg (27-33) 07/03/23 05:30 MCHC 33.2 g/dL (30-55) 07/03/23 05:30 RDW 14.5 % (12.1-15.1) 07/03/23 05:30 Plt Count 289 10^3/cmm (157-399) 07/03/23 05:30 MPV 9.6 fL (7.4-10.4) 07/03/23 05:30 Neut % (Auto) 85.2 % 07/03/23 05:30 Lymph % (Auto) 7.0 % 07/03/23 05:30 [place] % (Auto) 5.7 % 07/03/23 05:30 Eos % (Auto) 0.0 % 07/03/23 05:30 Baso % (Auto) 0.1 % 07/03/23 05:30 Neut # (Auto) 7.51 10^3/uL (1.8-7.7) 07/03/23 05:30 Lymph # (Auto) 0.6 10^3/uL (0.8-4.8) L 07/03/23 05:30 [place] # (Auto) 0.5 10^3/uL (0.2-0.9) 07/03/23 05:30 Eos # (Auto) 0.0 10^3/uL (0.0-0.8) 07/03/23 05:30 Baso # (Auto) 0.0 10^3/uL (0.0-0.1) 07/03/23 05:30 Nucleated RBC % (auto) 0 % 07/03/23 05:30 Nucleated RBCs # 0.0 /100WBC 07/03/23 05:30 Sodium 134 mmol/L (136-145) L 07/04/23 04:35 Potassium 5.4 mmol/L (3.5-5.1) H 07/04/23 04:35 Chloride 100 mmol/L (98-107) 07/04/23 04:35 Carbon Dioxide 30 mmol/L (22-29) H 07/04/23 04:35 Anion Gap 9.4 (5-19) 07/04/23 04:35 BUN 20 mg/dL (8-23) 07/04/23 04:35 Creatinine 0.7 mg/dL (0.7-1.2) 07/04/23 04:35 GFR Calculation Not Reportable 07/04/23 04:35 Glucose 125 mg/dL (65-115) H 07/04/23 04:35 Calculated Osmolality 282 mOsm/kg (285-295) L 07/04/23 04:35 Lactic Acid 1.5 mmol/L (0.5-2.2) 06/29/23 21:10 Calcium 8.8 mg/dL (8.5-10.5) 07/04/23 04:35 Magnesium 2.2 mg/dL (1.7-2.3) 06/30/23 04:55 Total Bilirubin 0.2 mg/dL (0.15-1.2) 07/03/23 05:30 AST 82 U/L (0-40) H 07/03/23 05:30 ALT 92 U/L (0-41) H 07/03/23 05:30 Alkaline Phosphatase 199 U/L (40-130) H 07/03/23 05:30 Creatine Kinase 168 U/L (39-308) 06/30/23 01:54 C-Reactive Protein 242.3 mg/L (0.0-4.9) H 06/29/23 21:10 Total Protein 6.0 g/dL (6.6-8.7) L 07/03/23 05:30 Albumin 2.8 g/dL (3.5-5.2) L 07/03/23 05:30 Globulin 3.2 g/dL (1.3-4.6) 07/03/23 05:30 TSH 1.71 uIU/mL (0.27-4.20) 06/30/23 04:55 Random Cortisol 55.63 ug/dL (2.47-19.5) H 06/29/23 21:10 Urine Color Yellow (Yellow) 06/29/23 22:43 Urine Appearance Clear (CLEAR) 06/29/23 22:43 Urine pH 5 (5-7) 06/29/23 22:43 Ur Specific [place] 1.020 (1.005-1.030) 06/29/23 22:43 Urine Protein Trace (Negative) 06/29/23 22:43 Urine Glucose (UA) Norm (Normal) 06/29/23 22:43 Urine Ketones Negative (Negative) 06/29/23 22:43 Urine Blood Neg (Negative) 06/29/23 22:43 Urine Nitrate Negative (Negative) 06/29/23 22:43 Urine Bilirubin Neg (Negative) 06/29/23 22:43 Urine Urobilinogen Neg mg/dL (Negative) 06/29/23 22:43 Ur Leukocyte Esterase Negative (Negative) 06/29/23 22:43 Urine RBC None /hpf (0-2) 06/29/23 22:43 Urine WBC None /hpf (0-5) 06/29/23 22:43 Ur Squamous Epith Cells None /hpf (0-5) 06/29/23 22:43 Amorphous Sediment Not Reportable 06/29/23 22:43 Urine Bacteria 1+ /hpf (NONE) H 06/29/23 22:43 Urine Mucus 2+ /hpf 06/29/23 22:43 Coronavirus 229E (PCR) Not detected (NOT DETECT) 06/30/23 06:00 SARS-CoV-2 (PCR) Not detected (NOT DETECT) 06/30/23 06:00 Vitals Last Vital Signs Temp 97.9 F 07/04/23 07:35 Pulse 78 07/04/23 07:35 Resp 16 07/04/23 08:23 BP 105/66 07/04/23 07:35 Pulse Ox 96 07/04/23 07:35 O2 Del Method Room Air 07/04/23 07:35 O2 Flow Rate 3 07/03/23 08:55 Discharge Plan Discharge Patient Disposition: Xfer SNF Condition: Stable Prescriptions: New Isopto Tears 0.5 % Drops 1 drp eye-both Q4H Qty: 15 0RF Continued ferrous sulfate 325 mg (65 mg iron) tablet 325 mg PO BID@0800,1999 Hold Instructions: Resume on 03/07/23. le-7-jni-epa-fish oil-vit D3 300-1,000-1,000 mg-mg-unit capsule 1 cap PO DAILY@0800 magnesium 200 mg tablet 400 mg PO DAILY@0800 glucosamine HCl 750 mg tablet 1,500 mg PO DAILY@0800 (DME) Custom inserts or similar See Rx Instructions .Route .MEDSUPPLY Qty: 1 0RF Rx Instructions: to folic acid 1 mg tablet 1 mg PO DAILY@0800 Qty: 90 1RF sulfasalazine 500 mg tablet 0.5 g PO BID@0800,1999 Qty: 180 1RF Rx Instructions: give with food (meal/snack) hydroxychloroquine 200 mg tablet 200 mg PO BID Qty: 180 3RF Rx Instructions: Future refills need to be taken care of by primary care provider Multivitamin 50 Plus Tablet 1 tab PO DAILY@0800 sennosides-docusate sodium [Stool Softener-Laxative] 8.6-50 mg Tablet 2 tab PO BID Qty: 14 0RF sucralfate 1 gram tablet 1 g PO DAILY oxycodone-acetaminophen 10-325 mg tablet 1 tab PO Q6H PRN (Reason: Pain) polyethylene glycol 3350 17 gram/dose Powder 4 g PO DAILY Dry Eye Relief 1-0.2-0.2 % Drops 2 drp OPHTHALMIC (EYE) DAILY PRN (Reason: Dry Eye(S)) Biotene Dry Mouth Oral Rinse Mouthwash 15 ml MUCOUS MEMBRANE 5XD PRN (Reason: Dry Mouth) Rx Instructions: swish for 15-30 secs , then spit out; do not swallow Discontinued saw palmetto 450 mg capsule 450 mg PO BID Rx Instructions: give with food (meal/snack) Discharge Orders: Discharge Order (Routine); Ordered 07/04/23 Ordered By: Avril Carcamo Referrals: [facility] [Outside] Barrie Bhatt DO [Primary Care Provider] - Juan C Angulo MD [Referring] - 3 weeks Jace Hua MD [Physician] - 2 weeks Patient Instructions: Opioid Safety Discharge Attestations Time Spent in Discharge Care*: greater than 30 min Status at Discharge: Cognitive status at discharge: cognitively intact , Behavioral status at discharge: cooperative , Quality Metrics Clinical Quality Measures [ No reported AMI, CVA or VTE this stay] Coding Level of Care Code Acute Code for Chg Fwd Diagnoses Weight loss R63.4 Constipation K59.00 Ileus K56.7 Abdominal pain R10.9 Bladder mass N32.89 Acute kidney injury N17.9 Seropositive rheumatoid arthritis of multiple joints M05.79 Rheumatoid arthritis flare M06.9 Hypoxia R09.02 Malaise R53.81 Weakness R53.1
[2023-07-04] MEDS: sodium polystyrene sulfonate 15 gm/60 mL Btl PO (10:36)
== END 2023-07-04 13:51 | disposition skilled nursing facility (03) ==
LOC: ER 22:58 → MEDSURG 06-30 01:55
PROVIDERS: Emergency Medicine; Admitting Provider Internal Medicine; Emergency Provider Internal Medicine; PCP Internal Medicine; Visit Provider Internal Medicine
DX: R63.4 Abnormal weight loss (principal); K59.00 Constipation, unspecified; K56.7 Ileus, unspecified; R10.9 Unspecified abdominal pain; N32.89 Other specified disorders of bladder; N17.9 Acute kidney failure, unspecified; M05.79 Rheumatoid arthritis with rheumatoid factor of multiple sites without organ or systems involvement; M06.9 Rheumatoid arthritis, unspecified; R09.02 Hypoxemia; R53.81 Other malaise; R53.1 Weakness; Z66 Do not resuscitate; S51.011A Laceration without foreign body of right elbow, initial encounter; W19.XXXA Unspecified fall, initial encounter; Z87.891 Personal history of nicotine dependence; M35.00 Sjogren syndrome, unspecified
CPT/HCPCS: 36415; 71045; 71046; 74177; 80048; 80053; 81001; 82533; 82550; 83605; 83735; 84443; 85018; 85025; 86140; 87635; 96361; 96372; 96374; 96375; 96376; 97110; 97161; 97165; 97530; 99285; C9113; G0378; J1100; J1644; J1885; J2930; J7030; Q9967

== ENCOUNTER → 2023-07-19 09:41 | Outpatient (BNVA) | payer MEDICARE, SELFPAY | PROVIDERS: PCP Internal Medicine; Visit Provider Podiatrist Foot & Ankle Surgery | DX: B35.1 Tinea unguium (principal); I73.9 Peripheral vascular disease, unspecified; L84 Corns and callosities; G62.9 Polyneuropathy, unspecified | CPT/HCPCS: 11721 ==

== ENCOUNTER 2023-08-31 17:10 | Observation (INO) | payer MEDICARE, SELFPAY ==
--- NOTE | 2023-08-31 17:16 | CTR_ITS ---
PROCEDURE INFORMATION: Exam: CT Head Without Contrast Exam date and time: 08/31/2023 6:47 PM Age: 77 years old Clinical indication: Injury or trauma; Fall TECHNIQUE: Imaging protocol: Computed tomography of the head without contrast. Radiation optimization: All CT scans at this facility use at least one of these dose optimization techniques: automated exposure control; mA and/or kV adjustment per patient size (includes targeted exams where dose is matched to clinical indication); or iterative reconstruction. COMPARISON: CT head wo con* [id number] 01/30/2023 5:35 PM RADIATION DOSE METRICS: Total DLP (mGy-cm): 1141.88 FINDINGS: Brain: No acute intracranial abnormality. Cerebral ventricles: No ventriculomegaly. Paranasal sinuses: Partially visualized chronic appearing architectural or remodeling of the right and left maxillary sinuses. Mastoid air cells: Visualized mastoid air cells are well aerated. Bones/joints: Unremarkable. No acute fracture. Soft tissues: Unremarkable. CT/CT head wo con* [id number] IMPRESSION: No acute intracranial abnormality.
--- NOTE | 2023-08-31 17:16 | XRR_ITS ---
PROCEDURE INFORMATION: Exam: XR Chest Exam date and time: 08/31/2023 5:26 PM Age: 77 years old Clinical indication: Shortness of breath; Additional info: Fall TECHNIQUE: Imaging protocol: Radiologic exam of the chest. Views: 1 view. COMPARISON: CR XR chest 1V portable [id number] 07/01/2023 11:14 AM FINDINGS: Lungs: No focal consolidation. Pleural spaces: Enlarging right-sided pleural-based mass. No evidence of pneumothorax. Possible small right-sided pleural effusion. Heart/Mediastinum: Cardiomediastinal silhouette is within normal limits. Bones/joints: No evidence of acute osseous abnormality. Reverse left shoulder arthroplasty. Clips noted projecting over both otoniel thoraces. XR/XR chest 1V portable [id number] IMPRESSION: 1. Enlarging right-sided pleural-based mass. 2. Small right-sided pleural effusion. If there is ongoing clinical concern for traumatic injury, consider correlation with CT.
[2023-08-31 17:17] VITALS: BP 124/77; PULSE 98; TEMP 36.5; O2SAT 93; BMI 21.8
--- NOTE | 2023-08-31 17:27 | ED_ITS ---
HPI - Fall 2 General: Chief Complaint: Weakness Stated Complaint: weekness, Fall Time Seen by Provider: 08/31/23 17:11 Source: patient and EMS Mode of arrival: EMS Limitations: no limitations History of Present Illness: 77-year-old male is here from home he st ates he lives home alone he has been having increasing weakness he had went to the bathroom and fell off the toilet was wedged between the toilet wall would not be able to get up. He states he is there for over an hour he is complaining of some chest wall pain where he was wedged between the toilet hit his chest. Denies hitting his head EMS states they have tried to stand him he is not able ambulate states he has been feeling very weak. Associated symptoms-after fall: Reports chest pain; Denies abdominal pain, headache(s) or neck pain Review of Systems 2 Const: Reports: fatigue and malaise; Denies: fever(s), chills, body aches or change in appetite Eyes: Denies: blurry vision or eye discomfort ENMT: Denies: throat pain or dental pain Card: Reports: chest pain Resp: Denies: dyspnea GI: Denies: abdominal pain, nausea, vomiting or diarrhea Musc: Denies: neck pain or back pain Skin/Breast: Denies: rash Neuro: Denies: headache(s) PFSH ED 2 PFSH: Medical History Compression fracture Bladder mass Abdominal pain Ileus Compression fracture Hypoxia Abdominal pain Rheumatoid arthritis flare Acute kidney injury Weakness Constipation Malaise Osteoarthritis of left knee Rotator cuff syndrome of right shoulder Shock History of fall Hemorrhagic shock Acute upper GI bleeding Abrasion of knee, bilateral Acute on chronic anemia Anorexia Acute CVA (cerebrovascular accident) Rib fractures Recurrent falls Anemia Weight loss Neuropathy History of PFTs Physical deconditioning Alcohol abuse Generalized weakness Marginal zone lymphoma identified in 2020 and 2021, observant management Peripheral neuropathy Onychomycosis Ex-smoker for more than 1 year History of exposure to asbestos Thoracic outlet syndrome Osteoarthritis Immunosuppression Iron deficiency anemia History of Hodgkin's lymphoma diagnosed in 2013, treated with ABVD with good result Right knee meniscal tear Seropositive rheumatoid arthritis of multiple joints Primary Sjogren's syndrome Surgical History Status post surgery Bilateral chest surgery for thoracic outlet syndrome Status post colonoscopy History of revision of total replacement of right hip joint History of arthroplasty of right hip History of arthroplasty of left shoulder Family History Other Cancer Dementia Diabetes Denies family history of CAD (coronary artery disease) Clotting disorder Hyperlipidemia Psychiatric illness Chronic kidney disease (CKD) Suicide Anesthesia complication Bleeding disorder Lung disease Hypertension Stroke Social History Smoking and tobacco/nicotine status: former use of tobacco/nicotine Quit status (tobacco/nicotine): has quit using Year quit tobacco: 2010 [id number] Second hand smoke exposure: No Alcohol intake: current Alcohol intake frequency: 0-2 Drinks per Day Alcohol type: beer Substance/Drug Use: never Caregiver/support person: No Lives independently: No Household members: other Housing: [facility] Marital status: / service: No Current occupational status: retired Pets and animals: Yes Do you think of yourself as: Straight/Heterosexual Current gender identity: Male Physical Exam 2 Const: COMMON NORMALS: patient oriented x3 GENERAL APPEARANCE: disheveled and ill appearing HENMT: COMMON NORMALS: normocephalic and atraumatic HEAD & SCALP: n ormocephalic and atraumatic Eye: COMMON NORMALS: Equal, round and reactive pupils present and EOMs intact bilaterally PUPIL: Yes Equal, round and reactive pupils present Neck/C-Spine: COMMON NORMALS: full ROM and supple Chest: OTHER: tenderness and bruising to left chest wall Resp: COMMON NORMALS: normal respiratory effort, No retractions, No use of accessory muscles and clear to auscultation bilaterally AUSCULTATION: clear to auscultation bilaterally Cardio: COMMON NORMALS: regular rate, regular rhythm and No murmurs present (Cardio) RATE: regular rate RHYTHM: regular rhythm GI: COMMON NORMALS: Normal to inspection, nondistended, normoactive bowel sounds present, Soft to palpation, non-tender and no masses PALPATION: Yes Soft to palpation Extremity: COMMON NORMALS: normal to inspection and full ROM Neuro: COMMON NORMALS: patient oriented x3, moves all extremities and no focal motor deficits Psych: COMMON NORMALS: mental status grossly normal, Normal thought process present and cooperative THOUGHT PROCESS: Normal thought process present Skin: COMMON NORMALS: no rashes or lesions noted and no wounds GENERAL SKIN EXAM: no rashes or lesions noted Course 2 Vital Signs: Vital signs: Vital Signs Temperature 97.7 F 08/31/23 17:17 Pulse Rate 73 08/31/23 19:00 Respiratory Rate 16 08/31/23 19:00 Blood Pressure 103/64 08/31/23 19:00 Pulse Oximetry 94 08/31/23 19:00 Oxygen Delivery Me thod Room Air 08/31/23 19:00 MDM - Fall Medical Decision Making Patient presents for generalized weakness along with a fall patient's extremely weak here I feel is not able to be discharged home on his own and imaging here is all normal spoke to hospitalist will admit this time Medical Records I reviewed the patient's medical records. Lab Data 08/31/23 17:38 08/31/23 17:38 Radiology Impressions Chest X-Ray 08/31/23 17:16 IMPRESSION: 1. Enlarging right-sided pleural-based mass. 2. Small right-sided pleural effusion. If there is ongoing clinical concern for traumatic injury, consider correlation with CT. Head CT 08/31/23 17:16 IMPRESSION: No acute intracranial abnormality. Chest CT 08/31/23 17:57 IMPRESSION: 1. No evidence of acute traumatic injury to the chest. 2. Slight interval enlargement of the right upper lobe pleural-based mass. 3. Mild aneurysmal dilatation of the descending thoracic aorta. 4. Bibasilar honeycombing compatible with a UIP pattern of interstitial lung disease. Consider follow-up pulmonary clinic evaluation and correlation with pulmonary function tests. Laboratory Results WBC 12.59 10^3/uL (3.29-11.43) H 08/31/23 17:38 RBC 3.36 10^6/uL (3.85-5.65) L 08/31/23 17:38 Hgb 9.50 g/dL (11.27-16.99) L 08/31/23 17:38 Hct 28.2 % (37-53) L 08/31/23 17:38 MCV 83.9 fl (82-101) 08/31/23 17:38 MCH 28.3 pg (27-33) 08/31/23 17:38 MCHC 33.7 g/dL (30-55) 08/31/23 17:38 RDW 14.5 % (12.1-15.1) 08/31/23 17:38 Plt Count 188 10^3/cmm (157-399) 08/31/23 17:38 MPV 10.4 fL (7.4-10.4) 08/31/23 17:38 Neut % (Auto) 88.1 % 08/31/23 17:38 Lymph % (Auto) 3.8 % 08/31/23 17:38 [place] % (Auto) 6.9 % 08/31/23 17:38 Eos % (Auto) 0.3 % 08/31/23 17:38 Baso % (Auto) 0.3 % 08/31/23 17: Neut # (Auto) 11.08 10^3/uL (1.8-7.7) H 08/31/23 17:38 Lymph # (Auto) 0.5 10^3/uL (0.8-4.8) L 08/31/23 17:38 [place] # (Auto) 0.9 10^3/uL (0.2-0.9) 08/31/23 17:38 Eos # (Auto) 0.0 10^3/uL (0.0-0.8) 08/31/23 17:38 Baso # (Auto) 0.0 10^3/uL (0.0-0.1) 08/31/23 17:38 Nucleated RBC % (auto) 0 % 08/31/23 17: Nucleated RBCs # 0.0 /100WBC 08/31/23 17:38 PT 13.90 SECONDS (12.1-14.9) 08/31/23 17:38 INR 1.03 (0.8-1.2) 08/31/23 17:38 Sodium 132 mmol/L (136-145) L 08/31/23 17:38 Potassium 4.6 mmol/L (3.5-5.1) 08/31/23 17:38 Chloride 97 mmol/L (98-107) L 08/31/23 17:38 Carbon Dioxide 25 mmol/L (22-29) 08/31/23 17:38 Anion Gap 14.6 (5-19) 08/31/23 17:38 BUN 18 mg/dL (8-23) 08/31/23 17:38 Creatinine 1.1 mg/dL (0.7-1.2) 08/31/23 17:38 GFR Calculation Not Reportable 08/31/23 17:38 Glucose 153 mg/dL (65-115) H 08/31/23 17:38 Calculated Osmolality 279 mOsm/kg (285-295) L 08/31/23 17:38 Calcium 10.0 mg/dL (8.5-10.5) 08/31/23 17:38 Magnesium 2.4 mg/dL (1.7-2.3) H 08/31/23 17:38 Total Bilirubin 0.3 mg/dL (0.15-1.2) 08/31/23 17:38 AST 29 U/L (0-40) 08/31/23 17:38 ALT 17 U/L (0-41) 08/31/23 17:38 Alkaline Phosphatase 86 U/L (40-130) 08/31/23 17:38 Creatine Kinase 355 U/L (39-308) H* 08/31/23 17:38 Total Protein 7.2 g/dL (6.6-8.7) 08/31/23 17:38 Albumin 3.9 g/dL (3.5-5.2) 08/31/23 17:38 Globulin 3.3 g/dL (1.3-4.6) 08/31/23 17:38 TSH 5.12 uIU/mL (0.27-4.20) H 08/31/23 17:38 Urine Color Yellow (Yellow) 08/31/23 19:20 Urine Appearance Clear (CLEAR) 08/31/23 19:20 Urine pH 6 (5-7) 08/31/23 19:20 Ur Specific [place] 1.015 (1.005-1.030) 08/31/23 19:20 Urine Protein Neg (Negative) 08/31/23 19:20 Urine Glucose (UA) Norm (Normal) 08/31/23 19:20 Urine Ketones Negative (Negative) 08/31/23 19:20 Urine Blood Neg (Negative) 08/31/23 19:20 Urine Nitrate Negative (Negative) 08/31/23 19:20 Urine Bilirubin Neg (Negative) 08/31/23 19:20 Urine Urobilinogen Norm mg/dL (Negative) 08/31/23 19:20 Ur Leukocyte Esterase Negative (Negative) 08/31/23 19:20 All radiology interpretation(s) finalized by discharge EKG Data EKG 1: I personally reviewed and interpreted this EKG as follows: EKG interpretation date: 08/31/23 EKG interpretation time: 17:17 Interpretation: nsr hr [address] or t wave abnormalities qrs 114 qtc 406 Discharge Plan Discharge Patient Disposition: Admitted As Inpatient Admit Provider: Paty Corado Clinical Impression: Weakness, Fall Condition: Stable Coding Level of Care Code ED Safety Compliance Specialist for Chg Fwd
[2023-08-31] MEDS: sodium chloride 0.9% 1,000 ML 999 ML IV (17:40)
[2023-08-31 17:53] LABS: Basophils % 0.3 %; Eosinophils % 0.3 %; Hematocrit 28.2 % (37-53); Lymphocytes # 0.5 10^3/uL (0.8-4.8); Lymphocytes % 3.8 %; Mean Corpuscular HGB Conc 33.7 g/dL (30-55); Mean Corpuscular Hemoglobin 28.3 pg (27-33); Mean Corpuscular Volume 83.9 fl (82-101); Mean Platelet Volume 10.4 fL (7.4-10.4); Monocytes # 0.9 10^3/uL (0.2-0.9); Monocytes % 6.9 %; Neutrophils # 11.08 10^3/uL (1.8-7.7); Neutrophils % 88.1 %; Nucleated Red Blood Cells % 0 %; Platelet Count 188 10^3/cmm (157-399); Red Blood Count 3.36 10^6/uL (3.85-5.65); Red Cell Distribution Width 14.5 % (12.1-15.1); White Blood Count 12.59 10^3/uL (3.29-11.43)
--- NOTE | 2023-08-31 17:57 | CTR_ITS ---
PROCEDURE INFORMATION: Exam: CT Chest With Contrast; Diagnostic Exam date and time: 08/31/2023 6:52 PM Age: 77 years old Clinical indication: Other: Chest pain, chi shoulder pain; Additional info: Fall TECHNIQUE: Imaging protocol: Diagnostic computed tomography of the chest with contrast. Radiation optimization: All CT scans at this facility use at least one of these dose optimization techniques: automated exposure control; mA and/or kV adjustment per patient size (includes targeted exams where dose is matched to clinical indication); or iterative reconstruction. Contrast material: OMNI 350; Contrast volume: 100 ml; Contrast route: INTRAVENOUS (IV); COMPARISON: CT angio chest PE protcl [id number] 03/29/2023 7:59 PM RADIATION DOSE METRICS: Total DLP (mGy-cm): 399.03 FINDINGS: Thyroid: Grossly unremarkable. Lungs: No focal consolidation. There is honeycombing in the lung bases, mkope-iqrouxo-slym-left compatible with a UIP pattern of interstitial lung disease. Pleural spaces: There is a right-sided pleural-based mass measuring approximately 4.3 cm craniocaudal by 5 cm AP by 2.1 cm transverse with slight interval enlargement in comparison to prior study (approximately 1-2 mm in each dimension). No pleural effusion. No pneumothorax. Heart: No cardiomegaly. No pericardial effusion. Mediastinal space: Trachea and central airways are grossly patent. No evidence of mediastinal mass or hematoma. Lymph nodes: No evidence of mediastinal or hilar adenopathy. Vasculature: Mild aneurysmal dilatation of the descending thoracic aorta measuring up to 3.2 cm. No evidence of dissection. Though this study is not tailored to evaluate for pulmonary thromboembolism, there is no evidence of PE within limitations of respiratory motion. Bones/joints: No evidence of acute fracture or aggressive osseous lesion. Hypoplastic versus previously resected anterior 1st ribs bilaterally. Multiple old rib fractures bilaterally. Reverse left shoulder arthroplasty is grossly intact. Thoracic spine and sternum is intact. Clavicles are intact. Soft tissues: No fluid collection or hematoma in the superficial soft tissues. Other findings: No evidence of acute abnormality in the upper abdomen. CT/CT chest w con* [id number] IMPRESSION: 1. No evidence of acute traumatic injury to the chest. 2. Slight interval enlargement of the right upper lobe pleural-based mass. 3. Mild aneurysmal dilatation of the descending thoracic aorta. 4. Bibasilar honeycombing compatible with a UIP pattern of interstitial lung disease. Consider follow-up pulmonary clinic evaluation and correlation with pulmonary function tests.
[2023-08-31 18:00] VITALS: BP 116/68; PULSE 72; RESP 16; O2SAT 95
[2023-08-31 18:22] LABS: INR 1.03 (0.8-1.2)
--- NOTE | 2023-08-31 18:35 | ECG_ITS ---
[facility] Test Date: 2023-08-31 Pat Name: Peng Cooper Department: Room: Gender: Male Brakes Inspector: : 1945 Requested By: Danny Stone Order Number: [id number] Gena MD: Reji Lee M.D. Measurements Intervals [place] Rate: 88 P: 3 MI: 217 QRS: 7 QRSD: 114 T: 55 QT: 360 QTc: 437 Interpretive Statements SINUS RHYTHM WITH FIRST DEGREE AV BLOCK WITH FREQUENT SUPRAVENTRICULAR PREMATURE COMPLEXES MODERATE INTRAVENTRICULAR CONDUCTION DELAY [110+ ms QRS DURATION] Compared to ECG 03/29/2023 18:45:16 First degree AV block now present Intraventricular conduction delay now present Electronically Signed On 09-01-2023 6:36:20 CDT by Reji Lee M.D. [email or web address]
[2023-08-31 18:37] LABS: Alanine Aminotransferase 17 U/L (0-41); Albumin Level 3.9 g/dL (3.5-5.2); Alkaline Phosphatase 86 U/L (40-130); Anion Gap 14.6 (5-19); Aspartate Amino Transferase 29 U/L (0-40); Blood Urea Nitrogen 18 mg/dL (8-23); Carbon Dioxide 25 mmol/L (22-29); Chloride 97 mmol/L (98-107); Creatinine Clr Calc Pharmacy 46.7269; Globulin 3.3 g/dL (1.3-4.6); Glucose 153 mg/dL (65-115); Magnesium 2.4 mg/dL (1.7-2.3); Osmolality Calculated 279 mOsm/kg (285-295); Potassium 4.6 mmol/L (3.5-5.1); Sodium 132 mmol/L (136-145); Thyroid Stimulating Hormone 5.12 uIU/mL (0.27-4.20); Total Bilirubin 0.3 mg/dL (0.15-1.2); Total Protein 7.2 g/dL (6.6-8.7)
[2023-08-31 18:48] LABS: Creatine Phosphokinase 355 U/L (39-308)
[2023-08-31 19:00] VITALS: BP 103/64; PULSE 73; RESP 16; O2SAT 94
[2023-08-31] MEDS: morphine 4 mg/mL SDV 1 mL IVP (19:13)
[2023-08-31] MEDS: ondansetron 2 mg/ML SDV 2 mL 4 MG IVP (19:13)
[2023-08-31 19:23] LABS: Add Urine Microscopic? NO; Charge for UA Resulting for Rev
[2023-08-31 19:31] LABS: Bilirubin Urine Neg (Negative); Blood Urine Neg (Negative); Glucose Urine UA Norm (Normal); Ketones Urine Negative (Negative); Leukocyte Esterase Urine Negative (Negative); Nitrate Urine Negative (Negative); Protein Urine Neg (Negative); Specific Gravity, Urine 1.015 (1.005-1.030); Urine Appearance Clear (CLEAR); Urine Color Yellow (Yellow); Urobilinogen Urine Norm (Negative); pH Urine 6 (5-7)
[2023-08-31] MEDS: HYDROmorphone 1 mg/mL INJ 1 mL 0.5 MG IVP (20:18)
[2023-08-31] MEDS: sodium chloride 0.9% 500 ML 999 ML IV (20:19)
[2023-08-31 20:45] VITALS: BP 107/94; PULSE 68; RESP 14; O2SAT 94
[2023-08-31 21:35] VITALS: BP 111/66; PULSE 78; RESP 18; TEMP 36.5; O2SAT 95
--- NOTE | 2023-08-31 23:01 | PM.HP ---
Providers/Chief Complaint Admitting Physician: Paty Corado MD Primary Care Provider: Barrie Bhatt DO Chief Complaint: weakness, Fall History of Present Illness Peng Cooper is a 77 year old male with a history of stage II classical Hodgkin's lymphoma, diagnosed on December 05, 2013, at that time he underwent treatment with ABVD. 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 Other history is notable for that of rheumatoid arthritis, currently on hydroxychloroquine and sulfasalazine, peripheral neuropathy, peripheral artery disease. He additionally has a h/o GI bleed in 02/2023, EGD found him to have multiple superficial esophageal ulcers in the lower esophagus. He was recently admitted here in June 2023 for worsening joint pains, ileus, at which point he was also noted to have a new bladder mass. He was treated for a rheumatoid flare and ileus and was transitioned to SNF. It appears he left the NH and currently has home hospice services with [facility]. He has a history of recurrent falls and gait instability. He presents to the emergency room today stating that he has been having increasing difficulty performing ADLs at home. He has been feeling weak, has generalized muscle aches and pains to the point that he was unable to get off the toilet today. He estimates he remained in the bathroom for about an hour before EMS arrived and brought him to the emergency room. No fever chills nausea vomiting or diarrhea. Review of physical therapy notes from July 04, 2023 showed that patient had exhibited decreased endurance, decreased strength, incoordination, poor balance and poor safety awareness and was thought to benefit from senior living facility prior to discharge home. Denies any fever chills nausea vomiting or diarrhea. Review of Systems General: Reports: 10 or more systems reviewed and unremarkable except in HPI and below Const: Denies: fever(s), chills or body aches Eyes: Denies: change in vision, blurry vision or photophobia ENMT: Reports: hoarseness; Denies: throat pain, enlarged tonsils, odynophagia or nasal congestion Card: Denies: chest pain, palpitations, irregular heart rhythm, edema, swelling of feet/ankles, lightheadedness, pre-syncope, dyspnea on exertion or orthopnea Resp: Denies: dyspnea, productive cough, non-productive cough, wheezing, stridor, pain on inspiration, change in phlegm color, hemoptysis or chest congestion GI: Denies: abdominal pain, nausea, vomiting, hematemesis, coffee ground emesis, dysphagia, heartburn, diarrhea, constipation, GI cramping, change in stool character, hematochezia or melena : Denies: flank pain, dysuria, urinary frequency, urinary urgency, urinary hesitancy or hematuria Musc: Denies: neck pain, back pain, extremity pain, joint swelling, joint warmth or deformity Neuro: Denies: headache(s), numbness in extremities, weakness in extremities, sensory changes, difficulty walking, frequent falls, dizziness, vertigo, behavioral changes, Slurred speech present or seizure-like activity Psych: Denies: anxiety, depression, suicidal ideation or homicidal ideation Endo: Denies: polyuria, polydipsia, tired all the time, cold intolerance or hot flashes Bryant/Lymph: Denies: easy bruising or easy bleeding Medications/Allergies Home Medications Medication Instructions Recorded Confirmed Last Taken Type ferrous sulfate 325 mg (65 mg 325 mg PO BID@0800,199906/19/19 07/19/23 02/23/23 History iron) tablet magnesium 200 mg tablet 400 mg PO DAILY@79906/19/19 07/19/23 02/23/23 History ah-9-kca-epa-fish oil-vit D3 300 1 cap PO DAILY@79906/19/19 07/19/23 02/23/23 History mg-1,000 mg-1,000 unit capsule gbgdglnxffru-vfygurjb-hjgfha 1 tab PO DAILY@0806/16/20 07/19/23 02/23/23 History tablet (Multivitamin 50 Plus tablet) glucosamine HCl 750 mg tablet 1,500 mg PO DAILY@0800 01/04/22 07/19/23 02/23/23 History Custom inserts or similar #1 ea 06/21/22 07/19/23 Unknown Rx sennosides 8.6 mg-docusate sodium 2 tab PO BID #14 tabs 02/03/23 07/19/23 02/23/23 Rx 50 mg tablet (Stool Softener-Laxative) peg [id number]-[id number]-eblhduoz 1 2 drp ophthalmic (eye) DAILY PRN 02/23/23 07/19/23 Unknown History %-0.2 %-0.2 % eye drops (Dry Eye Dry Eye(S) Relief) polyethylene glycol 3350 17 4 g PO DAILY 02/23/23 07/19/23 02/23/23 History gram/dose oral powder folic acid 1 mg tablet 1 mg PO DAILY@0800 #90 tabs 05/24/23 07/19/23 Unknown Rx sulfasalazine 500 mg tablet 0.5 g PO BID@0800,2000 #180 tabs 05/24/23 07/19/23 Unknown Rx hydroxychloroquine 200 mg tablet 200 mg PO BID #180 tabs 06/03/23 07/19/23 Unknown Rx oxycodone-acetaminophen 10 mg-325 1 tab PO Q6H PRN Pain 06/30/23 07/19/23 Unknown History mg tablet sucralfate 1 gram tablet 1 g PO DAILY 06/30/23 07/19/23 Unknown History artificial tears(hypromellose) 0.5 1 drp eye-both Q4H #15 mL 07/04/23 07/19/23 Unknown Rx % eye drops (Isopto Tears) saliva substitute combo no.9 15 ml mucous membrane 5XD PRN Dry 07/05/23 07/19/23 Unknown Rx (Biotene Dry Mouth Oral Rinse Mouth #237 mL mouthwash) Allergies Allergy/AdvReac Type Severity Reaction Status Date / Time No Known Allergies Allergy Verified 08/31/23 17:29 PFSH Acute PFSH: Medical History (Updated 09/01/23 @ 06:58 by Paty Corado MD) Recurrent falls Generalized weakness Compression fracture Bladder mass Abdominal pain Ileus Compression fracture Hypoxia Abdominal pain Rheumatoid arthritis flare Acute kidney injury Weakness Constipation Malaise Osteoarthritis of left knee Rotator cuff syndrome of right shoulder Shock History of fall Hemorrhagic shock Acute upper GI bleeding Abrasion of knee, bilateral Acute on chronic anemia Anorexia Acute CVA (cerebrovascular accident) Rib fractures Anemia Weight loss Neuropathy History of PFTs Physical deconditioning Alcohol abuse Marginal zone lymphoma identified in 2020 and 2021, observant management Peripheral neuropathy Onychomycosis Ex-smoker for more than 1 year History of exposure to asbestos Thoracic outlet syndrome Osteoarthritis Immunosuppression Iron deficiency anemia History of Hodgkin's lymphoma diagnosed in 2013, treated with ABVD with good result Right knee meniscal tear Seropositive rheumatoid arthritis of multiple joints Primary Sjogren's syndrome Surgical History Status post surgery Bilateral chest surgery for thoracic outlet syndrome Status post colonoscopy History of revision of total replacement of right hip joint History of arthroplasty of right hip History of arthroplasty of left shoulder Family History Other Cancer Dementia Diabetes Denies family history of CAD (coronary artery disease) Clotting disorder Hyperlipidemia Psychiatric illness Chronic kidney disease (CKD) Suicide Anesthesia complication Bleeding disorder Lung disease Hypertension Stroke Social History Smoking and tobacco/nicotine status: former use of tobacco/nicotine Quit status (tobacco/nicotine): has quit using Year quit tobacco: 2010 [id number] Second hand smoke exposure: No Alcohol intake: current Alcohol intake frequency: 0-2 Drinks per Day Alcohol type: beer Substance/Drug Use: never Caregiver/support person: No Lives independently: No Household members: other Housing: Care Home Marital status: / service: No Current occupational status: retired Pets and animals: Yes Do you think of yourself as: Straight/Heterosexual Current gender identity: Male Vitals/I&O/Wt Last Vital Signs Temp 97.7 F 08/31/23 21:35 Pulse 78 08/31/23 21:35 Resp 18 08/31/23 21:35 BP 111/66 08/31/23 21:35 Pulse Ox 95 08/31/23 21:35 O2 Del Method Nasal Cannula 08/31/23 21:54 O2 Flow Rate 2 08/31/23 21:35 08/31/23 08/31/23 09/01/23 14:59 22:59 06:59 Intake Total 1500 / 1500 Output Total 350 / 350 Balance 1150 / 1150 Weight last 48 hrs Weight 59.421 kg Physical Exam Narrative: General: No acute distress, AO x3, dehydrated HEENT: PERRLA, pupils bilaterally equal and reactive, pallors not present Chest: Normal vesicular breath sounds, no added sounds, equal good air entry bilaterally CVS: S1-S2 regular, no murmurs, no tachycardia, no gallops, no rubs Abdomen: Soft, nontender, no organomegaly, bowel sounds present Neuro: No focal deficits, no facial deformity, AO x3, power 5/5 in all limbs Data 09/01/23 03:36 09/01/23 03:36 Other Labs: Launch[facility] [address] [facility] [place] [address] CT Scan Report Signed Patient: Peng Cooper Unit #: [id number] : 1945 Age/Sex: 77 / M ADM Date: 08/31/23 Loc: ER Room/Bed: Attending Dr: Ordering Provider/Ordering MD: Danny Stone MD Date of Service: 08/31/23 Procedure(s): CT chest w con* [id number] Accession Number(s): [id number] Report Number: [id number] PROCEDURE INFORMATION: Exam: CT Chest With Contrast; Diagnostic Exam date and time: 08/31/2023 6:52 PM Age: 77 years old Clinical indication: Other: Chest pain, chi shoulder pain; Additional info: Fall TECHNIQUE: Imaging protocol: Diagnostic computed tomography of the chest with contrast. Radiation optimization: All CT scans at this facility use at least one of these dose optimization techniques: automated exposure control; mA and/or kV adjustment per patient size (includes targeted exams where dose is matched to clinical indication); or iterative reconstruction. Contrast material: OMNI 350; Contrast volume: 100 ml; Contrast route: INTRAVENOUS (IV); COMPARISON: CT angio chest PE protcl [id number] 03/29/2023 7:59 PM RADIATION DOSE METRICS: Total DLP (mGy-cm): 399.03 FINDINGS: Thyroid: Grossly unremarkable. Lungs: No focal consolidation. There is honeycombing in the lung bases, dzjja-jqhthud-rsld-left compatible with a UIP pattern of interstitial lung disease. Pleural spaces: There is a right-sided pleural-based mass measuring approximately 4.3 cm craniocaudal by 5 cm AP by 2.1 cm transverse with slight interval enlargement in comparison to prior study (approximately 1-2 mm in each dimension). No pleural effusion. No pneumothorax. Heart: No cardiomegaly. No pericardial effusion. Mediastinal space: Trachea and central airways are grossly patent. No evidence of mediastinal mass or hematoma. Lymph nodes: No evidence of mediastinal or hilar adenopathy. Vasculature: Mild aneurysmal dilatation of the descending thoracic aorta measuring up to 3.2 cm. No evidence of dissection. Though this study is not tailored to evaluate for pulmonary thromboembolism, there is no evidence of PE within limitations of respiratory motion. Bones/joints: No evidence of acute fracture or aggressive osseous lesion. Hypoplastic versus previously resected anterior 1st ribs bilaterally. Multiple old rib fractures bilaterally. Reverse left shoulder arthroplasty is grossly intact. Thoracic spine and sternum is intact. Clavicles are intact. Soft tissues: No fluid collection or hematoma in the superficial soft tissues. Other findings: No evidence of acute abnormality in the upper abdomen. CT/CT chest w con* [id number] IMPRESSION: 1. No evidence of acute traumatic injury to the chest. 2. Slight interval enlargement of the right upper lobe pleural-based mass. 3. Mild aneurysmal dilatation of the descending thoracic aorta. 4. Bibasilar honeycombing compatible with a UIP pattern of interstitial lung disease. Consider follow-up pulmonary clinic evaluation and correlation with pulmonary function tests. A&P Assessment and plan (1) Dehydration: (2) Iron deficiency anemia: (3) Fall: Plan 77-year-old male, currently reports being on home hospice, with a history of past lymphoma, known malignancy of the lung on observation, history of rheumatoid arthritis, currently presenting to the hospital with increased generalized weakness, recurrent falls, inability to get up to the bathroom, difficulty performing ADLs at home. He is noted to be grossly dehydrated. Denies any nausea or vomiting or diarrhea. He thinks his oral intake has been adequate. There are dry chapped lips on exam, dry parched skin. He has mild hyponatremia likely from dehydration. CT of the chest abdomen and pelvis today with slight interval increase in the pleural-based mass. Possibly interstitial lung disease. No acute abdomen or pelvic pathology. Check TSH check TSH, recently elevated in Jun 2023. Mild leukocytosis, likely from dehydration, trend with IV fluids Home medication list needs reconsiliation prn morphine and oxycodone for pain management case management to coordninate disposition with hospice team PT/ OT assessment DVT ppx: SCD only due to h/o GI bleed in 02/2023 DNR/ DNI Attestations Medical Necessity Statement*: less than 2 midnight stay anticipated Coding Level of Care Code Acute Code for Chg Fwd Moderate MDM includes number and complexity of problems actively addressed during encounter, amount and/or complexity of data reviewed/ordered and described risk of complication, morbidity or mortality of management as documented Diagnoses Dehydration E86.0 Iron deficiency anemia D50.9 Fall W19.XXXA
[2023-08-31] MEDS: sodium chloride 0.9% 1,000 ML 75 ML IV (23:24)
[2023-08-31 23:27] VITALS: RESP 16
[2023-08-31] MEDS: morphine 4 mg/mL SDV 1 mL 2 MG IVP (23:27)
[2023-09-01] VITALS (14 sets, daily range): BP systolic 85–111; BP diastolic 36–68; PULSE 70–106; RESP 14–18; TEMP 36.5–36.9; O2SAT 93–98
[2023-09-01 00:03] LABS: Lactate Dehydrogenase 251 U/L (135-225)
[2023-09-01 00:05] LABS: Troponin T (5th) Once 35 ng/L (0-15)
[2023-09-01 00:15] LABS: Thyroid Stimulating Hormone 5.25 uIU/mL (0.27-4.20)
[2023-09-01] MEDS: acetaminophen 325 mg Tablet 650 MG PO (02:33)
[2023-09-01 03:47] LABS: Basophils % 0.4 %; Eosinophils # 0.1 10^3/uL (0.0-0.8); Eosinophils % 0.8 %; Hematocrit 26.2 % (37-53); Lymphocytes # 0.8 10^3/uL (0.8-4.8); Mean Corpuscular HGB Conc 32.4 g/dL (30-55); Mean Corpuscular Volume 86.2 fl (82-101); Monocytes # 0.8 10^3/uL (0.2-0.9); Monocytes % 10.5 %; Neutrophils # 6.21 10^3/uL (1.8-7.7); Neutrophils % 78.2 %; Nucleated Red Blood Cells % 0 %; Platelet Count 172 10^3/cmm (157-399); Red Blood Count 3.04 10^6/uL (3.85-5.65); Red Cell Distribution Width 14.7 % (12.1-15.1); White Blood Count 7.93 10^3/uL (3.29-11.43)
[2023-09-01 04:07] LABS: Alanine Aminotransferase 19 U/L (0-41); Albumin Level 3.4 g/dL (3.5-5.2); Alkaline Phosphatase 73 U/L (40-130); Anion Gap 12.7 (5-19); Aspartate Amino Transferase 35 U/L (0-40); Blood Urea Nitrogen 12 mg/dL (8-23); Calcium 9.1 mg/dL (8.5-10.5); Carbon Dioxide 24 mmol/L (22-29); Chloride 102 mmol/L (98-107); Creatinine Clr Calc Pharmacy 57.1107; Globulin 2.7 g/dL (1.3-4.6); Glucose 113 mg/dL (65-115); Osmolality Calculated 279 mOsm/kg (285-295); Potassium 4.7 mmol/L (3.5-5.1); Sodium 134 mmol/L (136-145); Total Bilirubin 0.4 mg/dL (0.15-1.2); Total Protein 6.1 g/dL (6.6-8.7)
[2023-09-01] MEDS: albumin 25 G/100 ML BAG 60 G IV (04:45)
[2023-09-01] MEDS: sodium chloride 0.9% 500 ML 999 ML IV (06:11)
[2023-09-01 06:28] LABS: Free T4 Free Thyroxine 1.03 ng/dL (0.82-1.77); T3 Free 1.5 PG/ML (2.0-4.4)
[2023-09-01] MEDS: pantoprazole DR 40 mg Tablet PO ×2 (08:03→17:42)
[2023-09-01] MEDS: sucralfate 1 gm Tablet PO (08:03)
[2023-09-01] MEDS: oxyCODONE-APAP 10-325 mg Tablet 1 TAB PO ×3 (08:03→20:56)
[2023-09-01] MEDS: ferrous sulfate EC 325 mg Tablet PO ×2 (08:04→20:52)
[2023-09-01] MEDS: polyethylene glycol 3350 Pkt 17 gm PO ×2 (11:35→20:53)
--- NOTE | 2023-09-01 13:24 | P.PN_ITS ---
Subjective 2 Subjective: Seen at bedside this morning, he complained of generalized weakness and reports that he is unable to take care of himself with his routine daily activities. Needs assistance for the same. When asked about his option for penitent[facility] with hospice care, he was not sure. He denied any cold cough nausea vomiting diarrhea or chest pain. He reports having constipation for the last 3 days. Medications: Reviewed: Yes Vitals/I&O/Wt Last Vital Signs Temp 98.3 F 09/01/23 11:26 Pulse 106 H 09/01/23 11:26 Resp 16 09/01/23 11:26 BP 105/68 09/01/23 11:26 Pulse Ox 95 09/01/23 11:26 O2 Del Method Nasal Cannula 09/01/23 11:26 O2 Flow Rate 2 09/01/23 04:00 08/31/23 09/01/23 09/01/23 22:59 06:59 14:59 Intake Total 1500 / 1500 960 / 960 Output Total 350 / 350 600 / 950 Balance 1150 / 1150 -600 / 550 960 / 960 Weight last 48 hrs Weight 64.365 kg Weight 59.421 kg Physical Exam 2 Narrative: General: No acute distress, AO x3, dehydrated HEENT: PERRLA, pupils bilaterally equal and reactive, pallors not present Chest: Normal vesicular breath sounds, no added sounds, equal good air entry bilaterally CVS: S1-S2 regular, no murmurs, no tachycardia, no gallops, no rubs Abdomen: Soft, nontender, no organomegaly, bowel sounds present Neuro: No focal deficits, no facial deformity, AO x3, power 5/5 in all limbs Data 09/01/23 03:36 09/01/23 03:36 A&P Assessment and plan (1) Dehydration: (2) Iron deficiency anemia: (3) Fall: Plan 77-year-old male, currently reports being on home hospice, with a history of past lymphoma, known malignancy of the lung on observation, history of rheumatoid arthritis, currently presenting to the hospital with increased generalized weakness, recurrent falls, inability to get up to the bathroom, difficulty performing ADLs at home. He was found dehydrated on admission Will continue with IV fluids normal saline at 100 mm/h Hypothyroidism-will start on p.o. levothyroxine at low-dose of 12.5 mcg daily. Pain control with p.o. oxycodone as needed case management to coordninate disposition with hospice team PT/ OT assessment DVT ppx: SCD only due to h/o GI bleed in 02/2023 GI prophylaxis continue p.o. Protonix 40 mg daily DNR/ DNI Attestations 2 Medical Necessity Statement*: He is medically stable and waiting for social Coding Level of Care Code Acute Code for [facility] Fwd Diagnoses Dehydration E86.0 Iron deficiency anemia D50.9 Fall W19.XXXA
[2023-09-01] MEDS: sodium chloride 0.9% 1,000 ML 125 ML IV ×2 (14:42→22:25)
[2023-09-01] MEDS: morphine 4 mg/mL SDV 1 mL 2 MG IVP ×2 (17:42→23:13)
[2023-09-02] VITALS (15 sets, daily range): BP systolic 98–155; BP diastolic 45–87; PULSE 65–82; RESP 15–20; TEMP 36.4–36.8; O2SAT 90–96
[2023-09-02] MEDS: oxyCODONE-APAP 10-325 mg Tablet 1 TAB PO ×3 (04:03→17:50)
[2023-09-02] MEDS: morphine 4 mg/mL SDV 1 mL 2 MG IVP ×2 (05:34→21:04)
[2023-09-02] MEDS: levothyroxine 25 mcg Tablet 12.5 MCG PO (05:34)
[2023-09-02] MEDS: sodium chloride 0.9% 1,000 ML 125 ML IV ×3 (06:22→22:20)
[2023-09-02] MEDS: docusate sodium 100 mg Capsule 200 MG PO (08:31)
[2023-09-02] MEDS: ferrous sulfate EC 325 mg Tablet PO ×2 (08:31→21:02)
[2023-09-02] MEDS: pantoprazole DR 40 mg Tablet PO ×2 (08:31→17:51)
[2023-09-02] MEDS: sucralfate 1 gm Tablet PO (08:31)
[2023-09-02] MEDS: ibuprofen 200 mg Tablet 400 MG PO (09:13)
--- NOTE | 2023-09-02 13:27 | P.PN_ITS ---
Subjective 2 Subjective: Seen at bedside, complaining of left hand swelling , pain and redness since 1 day. He has a history of rheumatoid arthritis. There is no history of injury to the left hand. Medications: Reviewed: Yes Vitals/I&O/Wt Last Vital Signs Temp 97.6 F 09/02/23 12:00 Pulse 82 09/02/23 12:00 Resp 20 H 09/02/23 13:15 BP 98/45 09/02/23 12:00 Pulse Ox 90 09/02/23 12:00 O2 Del Method Nasal Cannula 09/01/23 16:00 O2 Flow Rate 2 09/01/23 04:00 09/01/23 09/02/23 09/02/23 22:59 06:59 14:59 Intake Total 1480 / 3680 1213.75 / 4893.75 550 / 550 Output Total 300 / 300 750 / 1050 425 / 425 Balance 1180 / 3380 463.75 / 3843.75 125 / 125 Weight last 48 hrs Weight 68.356 kg Weight 64.365 kg Weight 59.421 kg Physical Exam 2 Narrative: General: No acute distress, AO x3, dehydrated HEENT: PERRLA, pupils bilaterally equal and reactive, pallors not present Chest: Normal vesicular breath sounds, no added sounds, equal good air entry bilaterally CVS: S1-S2 regular, no murmurs, no tachycardia, no gallops, no rubs Abdomen: Soft, nontender, no organomegaly, bowel sounds present Extremities-no edema noted bilateral lower extremity, left hand dorsum swollen erythematous tender, warm and there is restricted range of movements Data 09/01/23 03:36 09/01/23 03:36 A&P Assessment and plan (1) Dehydration: (2) Iron deficiency anemia: (3) Fall: Plan 77-year-old male, currently reports being on home hospice, with a history of past lymphoma, known malignancy of the lung on observation, history of rheumatoid arthritis, currently presenting to the hospital with increased generalized weakness, recurrent falls, inability to get up to the bathroom, difficulty performing ADLs at home. He was found dehydrated on admission Will continue with IV fluids normal saline at 100 mm/h Left hand dorsum swollen erythematous tender and warm likely secondary to acute inflammation due to rheumatoid arthritis versus cellulitis. But in absence of fever and leukocytosis will hold off on antibiotics for now. Restart his home medications will give ibuprofen 600 mg every 8 hours. Hypothyroidism- on p.o. levothyroxine at low-dose of 12.5 mcg daily. Pain control with p.o. oxycodone as needed case management to coordninate disposition with hospice team DVT ppx: SCD only due to h/o GI bleed in 02/2023 GI prophylaxis continue p.o. Protonix 40 mg daily DNR/ DNI Attestations 2 Medical Necessity Statement*: He is medically stable and waiting for half-way placement Time Spent in Patient Care: 15 minutes Coding Level of Care Code Acute Code for Chg Fwd Diagnoses Dehydration E86.0 Iron deficiency anemia D50.9 Fall W19.XXXA Time Spent (min) 15
[2023-09-02] MEDS: artificial tears Op Soln 15 mL Btl 1 DROP EYE-BOTH ×3 (13:56→21:03)
[2023-09-02] MEDS: sulfamethoxazole-trimeth DS 160-800 mg Tablet 1 TAB PO (17:51)
[2023-09-02] MEDS: hydroxychloroquine 200 mg Tablet PO (17:51)
[2023-09-02] MEDS: sennosides-docusate Tablet 2 TAB PO (17:51)
[2023-09-02] MEDS: polyethylene glycol 3350 Pkt 17 gm PO (21:03)
[2023-09-02] MEDS: sulfaSALAzine 500 mg Tablet PO (21:03)
[2023-09-03] VITALS (11 sets, daily range): BP systolic 86–126; BP diastolic 54–65; PULSE 77–87; RESP 17–20; TEMP 36.6–37.4; O2SAT 91–97
[2023-09-03 03:08] LABS: Basophils % 0.4 %; Eosinophils # 0.2 10^3/uL (0.0-0.8); Eosinophils % 1.8 %; Hematocrit 25.4 % (37-53); Lymphocytes # 0.5 10^3/uL (0.8-4.8); Lymphocytes % 5.1 %; Mean Corpuscular HGB Conc 31.9 g/dL (30-55); Mean Corpuscular Hemoglobin 27.6 pg (27-33); Mean Corpuscular Volume 86.7 fl (82-101); Mean Platelet Volume 10.5 fL (7.4-10.4); Monocytes # 0.8 10^3/uL (0.2-0.9); Monocytes % 7.7 %; Neutrophils # 8.32 10^3/uL (1.8-7.7); Neutrophils % 84.6 %; Nucleated Red Blood Cells % 0 %; Platelet Count 143 10^3/cmm (157-399); Red Blood Count 2.93 10^6/uL (3.85-5.65); Red Cell Distribution Width 14.6 % (12.1-15.1); White Blood Count 9.84 10^3/uL (3.29-11.43)
[2023-09-03] MEDS: sodium chloride 0.9% 1,000 ML 125 ML IV ×2 (06:17→17:01)
[2023-09-03] MEDS: levothyroxine 25 mcg Tablet 12.5 MCG PO (06:17)
[2023-09-03] MEDS: artificial tears Op Soln 15 mL Btl 1 DROP EYE-BOTH ×5 (06:18→22:41)
[2023-09-03] MEDS: FUROsemide 40 mg Tablet PO (07:54)
[2023-09-03] MEDS: multivitamin therapeutic Tablet 1 TAB PO (07:54)
[2023-09-03] MEDS: sennosides-docusate Tablet 2 TAB PO (07:54)
[2023-09-03] MEDS: sulfamethoxazole-trimeth DS 160-800 mg Tablet 1 TAB PO (07:54)
[2023-09-03] MEDS: pantoprazole DR 40 mg Tablet PO ×2 (07:55→17:39)
[2023-09-03] MEDS: docusate sodium 100 mg Capsule 200 MG PO (07:55)
[2023-09-03] MEDS: magnesium oxide 400 mg tablet PO (07:55)
[2023-09-03] MEDS: omega-3 fatty acids 1,000 mg Capsule 1000 MG PO (07:55)
[2023-09-03] MEDS: folic acid 1 mg Tablet PO (07:55)
[2023-09-03] MEDS: sucralfate 1 gm Tablet PO (07:55)
[2023-09-03] MEDS: hydroxychloroquine 200 mg Tablet PO ×2 (07:55→17:39)
[2023-09-03] MEDS: oxyCODONE-APAP 10-325 mg Tablet 1 TAB PO ×2 (07:57→13:55)
--- NOTE | 2023-09-03 09:44 | P.PN_ITS ---
Subjective 2 Subjective: No acute overnight events noted. He complains of increased pain and swelling in his left hand. States that the swelling and pain is gradually worsening .he denies any history of injury to the left hand .he denies any fever chest pain shortness of breath vomiting or diarrhea Medications: Reviewed: Yes Vitals/I&O/Wt Last Vital Signs Temp 98.1 F 09/03/23 07:58 Pulse 81 09/03/23 07:58 Resp 20 H 09/03/23 07:58 BP 126/55 09/03/23 07:58 Pulse Ox 92 09/03/23 07:58 O2 Del Method Nasal Cannula 09/03/23 07:58 O2 Flow Rate 2 09/01/23 04:00 09/02/23 09/03/23 09/03/23 22:59 06:59 14:59 Intake Total 1720 / 3215.833 1793.75 / 5009.583 240 / 240 Output Total 0 / 425 525 / 950 Balance 1720 / 2790.833 1268.75 / 4059.583 240 / 240 Weight last 48 hrs Weight 71.395 kg Weight 68.356 kg Physical Exam 2 Narrative: General: No acute distress, AO x3, dehydrated HEENT: PERRLA, pupils bilaterally equal and reactive, pallors not present Chest: Normal vesicular breath sounds, no added sounds, equal good air entry bilaterally CVS: S1-S2 regular, no murmurs, no tachycardia, no gallops, no rubs Abdomen: Soft, nontender, no organomegaly, bowel sounds present Extremities-no edema noted bilateral lower extremity, left hand dorsum worsening swelling erythema tenderness, warm and there is restricted range of movements Data 09/03/23 02:49 09/01/23 03:36 A&P Assessment and plan (1) Dehydration: (2) Iron deficiency anemia: (3) Fall: Plan 77-year-old male, currently reports being on home hospice, with a history of past lymphoma, known malignancy of the lung on observation, history of rheumatoid arthritis, currently presenting to the hospital with increased generalized weakness, recurrent falls, inability to get up to the bathroom, difficulty performing ADLs at home. He was found dehydrated on admission Will continue with IV fluids normal saline at 100 mm/h Left hand dorsum swollen erythematous tender and warm likely secondary to acute inflammation due to rheumatoid arthritis versus cellulitis. In view of worsening symptoms, will start IV antibiotics Unasyn 1.5g Q6H Add Po prednisone 10mg taper to start with 40mg. Restart his home medications and will give ibuprofen 600 mg every 8 hours. Hypothyroidism- on p.o. levothyroxine at low-dose of 12.5 mcg daily. Pain control with p.o. oxycodone as needed case management to coordninate disposition with hospice team DVT ppx: SCD only due to h/o GI bleed in 02/2023 GI prophylaxis continue p.o. Protonix 40 mg daily DNR/ DNI Attestations 2 Medical Necessity Statement*: He needs continued hospitalization for left thyroid rheumatoid arthritis flare versus cellulitis to be treated with IV antibiotics steroids and pain control Time Spent in Patient Care: 15 minutes Coding Level of Care Code Acute Code for Chg Fwd Diagnoses Dehydration E86.0 Iron deficiency anemia D50.9 Fall W19.XXXA
[2023-09-03] MEDS: ondansetron 2 mg/ML SDV 2 mL 4 MG IVP (09:52)
[2023-09-03] MEDS: ampicillin-sulbactam 1.5 GM in sodium chloride 0.9% (plus) 50 ML IV ×3 (09:53→22:42)
[2023-09-03] MEDS: predniSONE 10 mg Tablet PO (10:06)
[2023-09-03] MEDS: ferrous sulfate EC 325 mg Tablet PO ×2 (10:06→22:39)
[2023-09-03] MEDS: sulfaSALAzine 500 mg Tablet PO ×2 (10:07→22:38)
[2023-09-03] MEDS: sodium chloride 0.9% 1,000 ML 999 ML IV (13:39)
[2023-09-03] MEDS: polyethylene glycol 3350 Pkt 17 gm PO (22:38)
[2023-09-04] VITALS (12 sets, daily range): BP systolic 97–134; BP diastolic 55–81; PULSE 76–93; RESP 17–20; TEMP 36.8–38.1; O2SAT 90–97
[2023-09-04] MEDS: sodium chloride 0.9% 1,000 ML 120 ML IV ×3 (00:32→17:29)
[2023-09-04] MEDS: artificial tears Op Soln 15 mL Btl 1 DROP EYE-BOTH ×6 (01:58→20:59)
[2023-09-04] MEDS: oxyCODONE-APAP 10-325 mg Tablet 1 TAB PO ×4 (02:01→23:12)
[2023-09-04] MEDS: ampicillin-sulbactam 1.5 GM in sodium chloride 0.9% (plus) 50 ML IV ×4 (04:35→21:00)
[2023-09-04 05:05] LABS: Basophils % 0.3 %; Hematocrit 27.7 % (37-53); Lymphocytes # 0.4 10^3/uL (0.8-4.8); Lymphocytes % 3.5 %; Mean Corpuscular HGB Conc 31.4 g/dL (30-55); Mean Corpuscular Hemoglobin 28.2 pg (27-33); Mean Corpuscular Volume 89.6 fl (82-101); Mean Platelet Volume 10.2 fL (7.4-10.4); Monocytes # 0.8 10^3/uL (0.2-0.9); Monocytes % 6.5 %; Neutrophils # 11.04 10^3/uL (1.8-7.7); Neutrophils % 89.1 %; Nucleated Red Blood Cells % 0 %; Platelet Count 196 10^3/cmm (157-399); Red Blood Count 3.09 10^6/uL (3.85-5.65); Red Cell Distribution Width 14.7 % (12.1-15.1); White Blood Count 12.39 10^3/uL (3.29-11.43)
[2023-09-04] MEDS: levothyroxine 25 mcg Tablet 12.5 MCG PO (06:50)
[2023-09-04] MEDS: sucralfate 1 gm Tablet PO (08:59)
[2023-09-04] MEDS: multivitamin therapeutic Tablet 1 TAB PO (08:59)
[2023-09-04] MEDS: docusate sodium 100 mg Capsule 200 MG PO (08:59)
[2023-09-04] MEDS: magnesium oxide 400 mg tablet PO (08:59)
[2023-09-04] MEDS: pantoprazole DR 40 mg Tablet PO ×2 (09:00→17:30)
[2023-09-04] MEDS: omega-3 fatty acids 1,000 mg Capsule 1000 MG PO (09:00)
[2023-09-04] MEDS: ferrous sulfate EC 325 mg Tablet PO ×2 (09:00→20:24)
[2023-09-04] MEDS: folic acid 1 mg Tablet PO (09:00)
[2023-09-04] MEDS: hydroxychloroquine 200 mg Tablet PO ×2 (09:00→17:38)
[2023-09-04] MEDS: predniSONE 10 mg Tablet PO (09:00)
[2023-09-04] MEDS: sulfaSALAzine 500 mg Tablet PO ×2 (09:00→20:24)
--- NOTE | 2023-09-04 13:43 | P.PN_ITS ---
Subjective 2 Subjective: No acute overnight events noted. Seen at bedside this morning. He is doing well on the left hand dorsal erythema pain and swelling improved. Medications: Reviewed: Yes Vitals/I&O/Wt Last Vital Signs Temp 98.4 F 09/04/23 11:49 Pulse 77 09/04/23 11:49 Resp 18 09/04/23 11:49 BP 97/57 09/04/23 11:49 Pulse Ox 91 09/04/23 11:49 O2 Del Method Nasal Cannula 09/04/23 11:49 O2 Flow Rate 2 09/01/23 04:00 09/03/23 09/04/23 09/04/23 22:59 06:59 14:59 Intake Total 1400 / 2810 1239.583 / 4049.583 1530 / 1530 Output Total 850 / 850 950 / 1800 Balance 550 / 1960 289.583 / 2249.583 1530 / 1530 Weight last 48 hrs Weight 73.754 kg Weight 71.395 kg Physical Exam 2 Narrative: General: No acute distress, AO x3, dehydrated HEENT: PERRLA, pupils bilaterally equal and reactive, pallors not present Chest: Normal vesicular breath sounds, no added sounds, equal good air entry bilaterally CVS: S1-S2 regular, no murmurs, no tachycardia, no gallops, no rubs Abdomen: Soft, nontender, no organomegaly, bowel sounds present Extremities-no edema noted bilateral lower extremity, left hand dorsum swelling erythema tenderness, warm improved and there is baseline restricted range of movements due to RA Data 09/04/23 04:48 09/01/23 03:36 A&P Assessment and plan (1) Dehydration: (2) Iron deficiency anemia: (3) Fall: Plan 77-year-old male, currently reports being on home hospice, with a history of past lymphoma, known malignancy of the lung on observation, history of rheumatoid arthritis, currently presenting to the hospital with increased generalized weakness, recurrent falls, inability to get up to the bathroom, difficulty performing ADLs at home. He was found dehydrated on admission Will continue with IV fluids normal saline at 100 mm/h Left hand dorsum swollen erythematous tender and warm likely secondary to acute inflammation due to rheumatoid arthritis versus cellulitis which is resolving. Follow up CBC for leucocytosis continue IV antibiotics Unasyn 1.5g Q6H x 3days and then discharge on PO antibiotics Added Po prednisone 10mg taper to start with 40mg. Restart his home medications and will give ibuprofen 600 mg every 8 hours prn Hypothyroidism- on p.o. levothyroxine at low-dose of 12.5 mcg daily. Pain control with p.o. oxycodone as needed case management to coordninate disposition with hospice team DVT ppx: SCD only due to h/o GI bleed in 02/2023 GI prophylaxis continue p.o. Protonix 40 mg daily DNR/ DNI Attestations 2 Medical Necessity Statement*: He needs continued hospitalization for left Hand rheumatoid arthritis flare versus cellulitis to be treated with IV antibiotics steroids and pain control .follow up social work for discharge to penitentiary on po antibiotics. Time Spent in Patient Care: 15 minutes Coding Level of Care Code Acute Code for Chg Fwd Diagnoses Dehydration E86.0 Iron deficiency anemia D50.9 Fall W19.XXXA Time Spent (min) 15
[2023-09-04] MEDS: polyethylene glycol 3350 Pkt 17 gm PO (20:24)
[2023-09-04] MEDS: FUROsemide 10 mg/mL SDV 2mL 20 MG IVP (20:58)
--- NOTE | 2023-09-04 21:40 | PC.NURSE ---
IVF during assessment pt found to have audible wheezing with each breath, coarse crackles to the lower lobes bilaterally. contacted Dr Maxwell, informed him of assessment. orders given to dc IVF and administer one time dose IVP 20mg furosemide.
[2023-09-05] VITALS (7 sets, daily range): BP systolic 100–131; BP diastolic 59–79; PULSE 70–102; RESP 17–18; TEMP 36.8–37.2; O2SAT 90–96
[2023-09-05] MEDS: ampicillin-sulbactam 1.5 GM in sodium chloride 0.9% (plus) 50 ML IV ×4 (03:21→22:27)
[2023-09-05] MEDS: artificial tears Op Soln 15 mL Btl 1 DROP EYE-BOTH ×6 (03:23→20:17)
[2023-09-05] MEDS: levothyroxine 25 mcg Tablet 12.5 MCG PO (06:08)
[2023-09-05 06:42] LABS: Basophils % 0.5 %; Eosinophils # 0.2 10^3/uL (0.0-0.8); Eosinophils % 2.1 %; Hematocrit 27.1 % (37-53); Lymphocytes # 0.7 10^3/uL (0.8-4.8); Lymphocytes % 8.2 %; Mean Corpuscular HGB Conc 32.5 g/dL (30-55); Mean Corpuscular Hemoglobin 28.1 pg (27-33); Mean Corpuscular Volume 86.6 fl (82-101); Mean Platelet Volume 9.8 fL (7.4-10.4); Monocytes % 11.9 %; Neutrophils # 6.56 10^3/uL (1.8-7.7); Neutrophils % 76.9 %; Nucleated Red Blood Cells % 0 %; Platelet Count 219 10^3/cmm (157-399); Red Blood Count 3.13 10^6/uL (3.85-5.65); Red Cell Distribution Width 14.7 % (12.1-15.1); White Blood Count 8.52 10^3/uL (3.29-11.43)
[2023-09-05] MEDS: docusate sodium 100 mg Capsule 200 MG PO (08:54)
[2023-09-05] MEDS: folic acid 1 mg Tablet PO (08:54)
[2023-09-05] MEDS: hydroxychloroquine 200 mg Tablet PO ×2 (08:54→17:07)
[2023-09-05] MEDS: oxyCODONE-APAP 10-325 mg Tablet 1 TAB PO ×2 (08:54→17:07)
[2023-09-05] MEDS: magnesium oxide 400 mg tablet PO (08:54)
[2023-09-05] MEDS: sulfaSALAzine 500 mg Tablet PO ×2 (08:54→20:17)
[2023-09-05] MEDS: omega-3 fatty acids 1,000 mg Capsule 1000 MG PO (08:55)
[2023-09-05] MEDS: ferrous sulfate EC 325 mg Tablet PO ×2 (08:55→20:17)
[2023-09-05] MEDS: sucralfate 1 gm Tablet PO (08:55)
[2023-09-05] MEDS: predniSONE 10 mg Tablet PO (08:55)
[2023-09-05] MEDS: pantoprazole DR 40 mg Tablet PO ×2 (08:55→17:07)
[2023-09-05] MEDS: multivitamin therapeutic Tablet 1 TAB PO (08:55)
--- NOTE | 2023-09-05 15:24 | P.PN_ITS ---
Subjective 2 Subjective: Peng reports he is doing okay. Thinks his left hand has gotten a lot better. Reports his right hand was affected to but it is normal now. Denies shortness of breath, chest discomfort. History and physical and daily progress notes reviewed. Medications: Reviewed: Yes Vitals/I&O/Wt Last Vital Signs Temp 98.4 F 09/05/23 12:00 Pulse 84 09/05/23 12:00 Resp 18 09/05/23 12:00 BP 100/59 09/05/23 12:00 Pulse Ox 94 09/05/23 12:00 O2 Del Method Nasal Cannula 09/04/23 15:50 O2 Flow Rate 2 09/01/23 04:00 09/05/23 09/05/23 09/05/23 06:59 14:59 22:59 Intake Total 150 / 3604 290 / 290 Output Total 650 / 1775 300 / 300 Balance -500 / 1829 -10 / -10 Weight last 48 hrs Weight 72.983 kg Weight 73.754 kg Physical Exam 2 Narrative: General exam no distress Neck is supple no lymphadenopathy thyromegaly Cardiovascular regular rate and rhythm with occasional premature beat Lungs clear Abdomen soft Extremities no cyanosis clubbing. Data 09/05/23 06:22 09/01/23 03:36 A&P Assessment and plan (1) Dehydration: Resolved Now off IV fluids, orally hydrating (2) Iron deficiency anemia: Stable, hemoglobin 8.8 (3) Fall: Associated with weakness Trying to arrange rehabilitation. Plan Erythematous left hand, resolving. Cellulitis versus arthritic flare. Currently on Unasyn. Prednisone dosing was minimal at 10 mg daily. Can change to p.o. at discharge. History of lymphoma, on hospice prior to presentation to the hospital. Hypothyroidism. Low-dose thyroid hormone DVT ppx: SCD only due to h/o GI bleed in 02/2023 GI prophylaxis continue p.o. Protonix 40 mg daily DNR/ DNI Attestations 2 Medical Necessity Statement*: Needs continued hospitalization for IV antibiotics secondary to cellulitis of hand. Currently awaiting placement at nursing facility secondary to weakness with need for rehabilitation. Diagnoses Dehydration E86.0 Iron deficiency anemia D50.9 Fall W19.XXXA Time Spent (min) 21
[2023-09-05] MEDS: polyethylene glycol 3350 Pkt 17 gm PO (20:17)
[2023-09-06] VITALS (7 sets, daily range): BP systolic 120–148; BP diastolic 60–63; PULSE 72–91; RESP 16–22; TEMP 36.6–36.8; O2SAT 90–95
[2023-09-06] MEDS: oxyCODONE-APAP 10-325 mg Tablet 1 TAB PO ×2 (03:55→11:13)
[2023-09-06] MEDS: ampicillin-sulbactam 1.5 GM in sodium chloride 0.9% (plus) 50 ML IV ×2 (04:22→09:04)
[2023-09-06] MEDS: levothyroxine 25 mcg Tablet 12.5 MCG PO (05:35)
[2023-09-06] MEDS: artificial tears Op Soln 15 mL Btl 1 DROP EYE-BOTH ×2 (05:42→08:49)
[2023-09-06 05:55] LABS: Basophils # 0.1 10^3/uL (0.0-0.1); Basophils % 0.6 %; Eosinophils # 0.2 10^3/uL (0.0-0.8); Eosinophils % 2.4 %; Hematocrit 26.8 % (37-53); Lymphocytes # 0.8 10^3/uL (0.8-4.8); Mean Corpuscular HGB Conc 32.5 g/dL (30-55); Mean Corpuscular Hemoglobin 27.5 pg (27-33); Mean Corpuscular Volume 84.8 fl (82-101); Mean Platelet Volume 9.5 fL (7.4-10.4); Monocytes # 1.1 10^3/uL (0.2-0.9); Monocytes % 12.7 %; Neutrophils # 6.21 10^3/uL (1.8-7.7); Neutrophils % 73.7 %; Nucleated Red Blood Cells % 0 %; Platelet Count 232 10^3/cmm (157-399); Red Blood Count 3.16 10^6/uL (3.85-5.65); Red Cell Distribution Width 14.6 % (12.1-15.1); White Blood Count 8.42 10^3/uL (3.29-11.43)
[2023-09-06 06:13] LABS: Alanine Aminotransferase 26 U/L (0-41); Alkaline Phosphatase 163 U/L (40-130); Anion Gap 9.9 (5-19); Aspartate Amino Transferase 20 U/L (0-40); Blood Urea Nitrogen 7 mg/dL (8-23); Calcium 9.6 mg/dL (8.5-10.5); Carbon Dioxide 29 mmol/L (22-29); Chloride 103 mmol/L (98-107); Creatinine Clr Calc Pharmacy 69.4735; Globulin 3.1 g/dL (1.3-4.6); Glucose 102 mg/dL (65-115); Osmolality Calculated 284 mOsm/kg (285-295); Potassium 3.9 mmol/L (3.5-5.1); Sodium 138 mmol/L (136-145); Total Bilirubin 0.4 mg/dL (0.15-1.2); Total Protein 6.1 g/dL (6.6-8.7)
[2023-09-06] MEDS: pantoprazole DR 40 mg Tablet PO (08:46)
[2023-09-06] MEDS: magnesium oxide 400 mg tablet PO (08:46)
[2023-09-06] MEDS: multivitamin therapeutic Tablet 1 TAB PO (08:46)
[2023-09-06] MEDS: predniSONE 10 mg Tablet PO (08:47)
[2023-09-06] MEDS: omega-3 fatty acids 1,000 mg Capsule 1000 MG PO (08:47)
[2023-09-06] MEDS: sucralfate 1 gm Tablet PO (08:47)
[2023-09-06] MEDS: hydroxychloroquine 200 mg Tablet PO (08:47)
[2023-09-06] MEDS: folic acid 1 mg Tablet PO (08:47)
[2023-09-06] MEDS: docusate sodium 100 mg Capsule 200 MG PO (08:47)
[2023-09-06] MEDS: sulfaSALAzine 500 mg Tablet PO (08:49)
[2023-09-06] MEDS: ferrous sulfate EC 325 mg Tablet PO (08:49)
--- NOTE | 2023-09-06 09:47 | P.DS_ITS ---
Discharge Providers Date of Admission: 08/31/23 22:57 Date of Discharge: September 06, 2023 Attending Provider at Admission: Paty Corado MD Attending Provider at Discharge: Yokasta Lee MD Primary Care Provider: Barrie Bhatt DO Diagnoses at Discharge Discharge Diagnosis (1) Dehydration: Status: Acute (2) Iron deficiency anemia: Status: Chronic (3) Fall: Status: Acute Reason for Visit Reason for Visit: weakness, Fall Hospital Course Hospital Course Patient presented to the hospital after a fall. He was admitted for dehydration. Given IV fluids. Oral rehydration given as well. Patient is improved. Iron deficiency anemia stable. During hospitalization he did have erythematous left hand which was presumed cellulitis versus arthritic flare. He was placed on Unasyn and prednisone. [facility] at this time. Physical Exam Narrative: General exam no distress Neck is supple no lymphadenopathy thyromegaly Cardiovascular regular rate and rhythm with occasional premature beat Lungs clear Abdomen soft Extremities no cyanosis clubbing. Discharge Data Studies Completed and Pending Completed Studies During Hospitalization Category Date Time Status CT chest w con* [id number] Stat Cat Scan 08/31/23 17:[address] head wo con* [id number] Stat Cat Scan 08/31/23 17:16 Completed CXRP [XR chest 1V portable [id number]] Stat Exams 08/31/23 17:16 Completed Pending at discharge Category Date Time Status COVID [SARS Covid-2 Antigen] Routine Lab 09/06/23 09:30 Received Occult Blood Stool [Immunochemical Fecal OCB] Routine Lab 09/03/23 07:49 Uncollected Radiology Impressions Chest X-Ray 08/31/23 17:16 IMPRESSION: 1. Enlarging right-sided pleural-based mass. 2. Small right-sided pleural effusion. If there is ongoing clinical concern for traumatic injury, consider correlation with CT. Head CT 08/31/23 17:16 IMPRESSION: No acute intracranial abnormality. Chest CT 08/31/23 17:57 IMPRESSION: 1. No evidence of acute traumatic injury to the chest. 2. Slight interval enlargement of the right upper lobe pleural-based mass. 3. Mild aneurysmal dilatation of the descending thoracic aorta. 4. Bibasilar honeycombing compatible with a UIP pattern of interstitial lung disease. Consider follow-up pulmonary clinic evaluation and correlation with pulmonary function tests. Laboratory Results WBC 8.42 10^3/uL (3.29-11.43) 09/06/23 05:47 RBC 3.16 10^6/uL (3.85-5.65) L 09/06/23 05:47 Hgb 8.70 g/dL (11.27-16.99) L 09/06/23 05:47 Hct 26.8 % (37-53) L 09/06/23 05:47 MCV 84.8 fl (82-101) 09/06/23 05:47 MCH 27.5 pg (27-33) 09/06/23 05:47 MCHC 32.5 g/dL (30-55) 09/06/23 05:47 RDW 14.6 % (12.1-15.1) 09/06/23 05:47 Plt Count 232 10^3/cmm (157-399) 09/06/23 05:47 MPV 9.5 fL (7.4-10.4) 09/06/23 05:47 Neut % (Auto) 73.7 % 09/06/23 05:47 Lymph % (Auto) 10.0 % 09/06/23 05:47 [place] % (Auto) 12.7 % 09/06/23 05:47 Eos % (Auto) 2.4 % 09/06/23 05:47 Baso % (Auto) 0.6 % 09/06/23 05:47 Neut # (Auto) 6.21 10^3/uL (1.8-7.7) 09/06/23 05:47 Lymph # (Auto) 0.8 10^3/uL (0.8-4.8) 09/06/23 05:47 [place] # (Auto) 1.1 10^3/uL (0.2-0.9) H 09/06/23 05:47 Eos # (Auto) 0.2 10^3/uL (0.0-0.8) 09/06/23 05:47 Baso # (Auto) 0.1 10^3/uL (0.0-0.1) 09/06/23 05:47 Nucleated RBC % (auto) 0 % 09/06/23 05:47 Nucleated RBCs # 0.0 /100WBC 09/06/23 05:47 PT 13.90 SECONDS (12.1-14.9) 08/31/23 17:38 INR 1.03 (0.8-1.2) 08/31/23 17:38 Sodium 138 mmol/L (136-145) 09/06/23 05:47 Potassium 3.9 mmol/L (3.5-5.1) 09/06/23 05:47 Chloride 103 mmol/L (98-107) 09/06/23 05:47 Carbon Dioxide 29 mmol/L (22-29) 09/06/23 05:47 Anion Gap 9.9 (5-19) 09/06/23 05:47 BUN 7 mg/dL (8-23) L 09/06/23 05:47 Creatinine 0.6 mg/dL (0.7-1.2) L 09/06/23 05:47 GFR Calculation Not Reportable 09/06/23 05:47 Glucose 102 mg/dL (65-115) 09/06/23 05:47 Calculated Osmolality 284 mOsm/kg (285-295) L 09/06/23 05:47 Calcium 9.6 mg/dL (8.5-10.5) 09/06/23 05:47 Magnesium 2.4 mg/dL (1.7-2.3) H 08/31/23 17:38 Total Bilirubin 0.4 mg/dL (0.15-1.2) 09/06/23 05:47 AST 20 U/L (0-40) 09/06/23 05:47 ALT 26 U/L (0-41) 09/06/23 05:47 Alkaline Phosphatase 163 U/L (40-130) H 09/06/23 05:47 Lactate Dehydrogenase 251 U/L (135-225) H 08/31/23 17:38 Creatine Kinase 355 U/L (39-308) H* 08/31/23 17:38 Troponin T 5th Gen ng/L 35 ng/L (0-15) H 08/31/23 17:38 Total Protein 6.1 g/dL (6.6-8.7) L 09/06/23 05:47 Albumin 3.0 g/dL (3.5-5.2) L 09/06/23 05:47 Globulin 3.1 g/dL (1.3-4.6) 09/06/23 05:47 TSH 5.12 uIU/mL (0.27-4.20) H 08/31/23 17:38 TSH 5.25 uIU/mL (0.27-4.20) H 08/31/23 17:38 Free T4 1.03 ng/dL (0.82-1.77) 09/01/23 03:36 Free T3 1.5 PG/ML (2.0-4.4) L 09/01/23 03:36 Urine Color Yellow (Yellow) 08/31/23 19:20 Urine Appearance Clear (CLEAR) 08/31/23 19:20 Urine pH 6 (5-7) 08/31/23 19:20 Ur Specific [place] 1.015 (1.005-1.030) 08/31/23 19:20 Urine Protein Neg (Negative) 08/31/23 19:20 Urine Glucose (UA) Norm (Normal) 08/31/23 19:20 Urine Ketones Negative (Negative) 08/31/23 19:20 Urine Blood Neg (Negative) 08/31/23 19:20 Urine Nitrate Negative (Negative) 08/31/23 19:20 Urine Bilirubin Neg (Negative) 08/31/23 19:20 Urine Urobilinogen Norm mg/dL (Negative) 08/31/23 19:20 Ur Leukocyte Esterase Negative (Negative) 08/31/23 19:20 Vitals Last Vital Signs Temp 98.0 F 09/06/23 07:01 Pulse 84 09/06/23 07:01 Resp 17 09/06/23 07:01 BP 120/61 09/06/23 07:01 Pulse Ox 95 09/06/23 07:01 O2 Del Method Nasal Cannula 09/06/23 07:01 O2 Flow Rate 2 09/06/23 07:01 Discharge Plan Discharge Patient Disposition: Xfer SNF Condition: Stable Prescriptions: New amoxicillin-pot clavulanate 875-125 mg tablet 1 tab PO BID 3 Days Qty: 6 0RF prednisone 10 mg tablet 10 mg PO DAILY 1 Days Qty: 1 0RF Continued ferrous sulfate 325 mg (65 mg iron) tablet 325 mg PO BID@0800,2000 Hold Instructions: Resume on 03/07/23. [id number] oil-vit D3 300-1,000-1,000 mg-mg-unit capsule 1 cap PO DAILY@0800 magnesium 200 mg tablet 400 mg PO DAILY@0800 (DME) Custom inserts or similar See Rx Instructions .Route .MEDSUPPLY Qty: 1 0RF Rx Instructions: to folic acid 1 mg tablet 1 mg PO DAILY@0800 Qty: 90 1RF hydroxychloroquine 200 mg tablet 200 mg PO BID Qty: 180 3RF Rx Instructions: Future refills need to be taken care of by primary care provider Biotene Dry Mouth Oral Rinse Mouthwash 15 ml MUCOUS MEMBRANE 5XD PRN (Reason: Dry Mouth) Qty: 237 1RF Rx Instructions: swish for 15-30 secs , then spit out; do not swallow Multivitamin 50 Plus Tablet 1 tab PO DAILY@0800 sennosides-docusate sodium [Stool Softener-Laxative] 8.6-50 mg Tablet 2 tab PO BID Qty: 14 0RF sucralfate 1 gram tablet 1 g PO DAILY oxycodone-acetaminophen 10-325 mg tablet 1 tab PO Q6H PRN (Reason: Pain) Isopto Tears 0.5 % Drops 1 drp eye-both Q4H Qty: 15 0RF polyethylene glycol 3350 17 gram/dose Powder 4 g PO DAILY Dry Eye Relief 1-0.2-0.2 % Drops 2 drp OPHTHALMIC (EYE) DAILY PRN (Reason: Dry Eye(S)) furosemide 40 mg tablet 40 mg PO DAILY sulfasalazine 500 mg tablet 500 mg PO BID@0800,2000 Rx Instructions: give with food (meal/snack) Discontinued glucosamine HCl 750 mg tablet 1,500 mg PO DAILY@0800 sulfamethoxazole-trimethoprim 800-160 mg tablet 1 tab PO BID Discharge Orders: Discharge Order (Routine); Ordered 09/06/23 Ordered By: Yokasta Lee Referrals: Barrie Bhatt DO [Primary Care Provider] - Discharge Diet: Cardiac Discharge Activity: Increase activity as tolerated, Use walker/crutches as instructed and As per PT/OT instructions Patient Instructions: Amoxicillin/Clavulanate Potassium (By mouth), Dehydration (GEN) Discharge Attestations Time Spent in Discharge Care*: less than 30 min Status at Discharge: Cognitive status at discharge: cognitively intact , Behavioral status at discharge: cooperative , Quality Metrics Clinical Quality Measures [ No reported AMI, CVA or VTE this stay] Coding Level of Care Code Acute Code for Chg Fwd Diagnoses Dehydration E86.0 Iron deficiency anemia D50.9 Fall W19.XXXA
[2023-09-06 09:55] LABS: SARS Covid-2 Antigen negative (Negative)
[2023-09-06] MEDS: lactulose oral liq 20 gm/30 mL UDC PO (12:00)
== END 2023-09-06 13:06 | disposition skilled nursing facility (03) ==
LOC: ER 17:46 → MEDSURG 20:33
PROVIDERS: Internal Medicine; Admitting Provider Student in an Organized Health Care Education/Training Program; Emergency Provider Emergency Medicine; PCP Internal Medicine; Visit Provider Internal Medicine
DX: E86.0 Dehydration (principal); D50.9 Iron deficiency anemia, unspecified; L53.9 Erythematous condition, unspecified; Z91.81 History of falling; E03.9 Hypothyroidism, unspecified; C85.90 Non-Hodgkin lymphoma, unspecified, unspecified site; Z66 Do not resuscitate; Z87.891 Personal history of nicotine dependence
CPT/HCPCS: 36415; 70450; 71045; 71260; 80053; 81003; 82550; 83615; 83735; 84439; 84443; 84481; 84484; 85025; 85610; 87426; 93005; 96365; 96367; 96375; 96376; 97110; 97161; 97167; 97530; 97535; 99285; G0378; J0295; J1170; J1940; J2270; J2405; J7030; J7040; J7512; P9046; Q9967

== ENCOUNTER 2023-11-14 18:22 | Emergency (ER) | payer MEDICARE, SELFPAY ==
[2023-11-14 18:39] VITALS: BP 83/55; PULSE 75; RESP 18; TEMP 36.9; O2SAT 93; BMI 16.6
[2023-11-14] MEDS: sodium chloride 0.9% 1,000 ML 999 ML IV (18:45)
[2023-11-14 18:53] LABS: Basophils % 0.3 %; Hematocrit 26.2 % (37-53); Lymphocytes # 0.7 10^3/uL (0.8-4.8); Lymphocytes % 6.7 %; Mean Corpuscular Hemoglobin 28.5 pg (27-33); Mean Platelet Volume 9.5 fL (7.4-10.4); Monocytes # 0.9 10^3/uL (0.2-0.9); Monocytes % 8.6 %; Neutrophils # 8.45 10^3/uL (1.8-7.7); Nucleated Red Blood Cells % 0 %; Platelet Count 227 10^3/cmm (157-399); Red Blood Count 3.12 10^6/uL (3.85-5.65); Red Cell Distribution Width 14.4 % (12.1-15.1); White Blood Count 10.05 10^3/uL (3.29-11.43)
--- NOTE | 2023-11-14 18:55 | W.ED.FALL ---
HPI - Fall General: Chief Complaint: Fall Stated Complaint: fall Time Seen by Provider: 11/14/23 18:24 History of Present Illness: 78-year-old man who is on hospice who presents to the emergency room today with a couple of falls, weakness and EMS reports hypotension at home. He has a skin tear on his left arm but otherwise reports no pain. He is alert and talkative. Review of Systems Narrative: Constitutional symptoms: Negative except as documented in HPI. Skin symptoms: Negative except as documented in HPI. Eye symptoms: Negative except as documented in HPI. ENMT symptoms: Negative except as documented in HPI. Respiratory symptoms: Negative except as documented in HPI. Cardiovascular symptoms: Negative except as documented in HPI. Gastrointestinal symptoms: Negative except as documented in HPI. Genitourinary symptoms: Negative except as documented in HPI. Musculoskeletal symptoms: Negative except as documented in HPI. Neurologic symptoms: Negative except as documented in HPI. Psychiatric symptoms: Negative except as documented in HPI. Endocrine symptoms: Negative except as documented in HPI. [facility] ED PFSH: Medical History (Updated 11/14/23 @ 20:38 by Karen Garcia MD) Recurrent falls Generalized weakness Compression fracture Bladder mass Abdominal pain Ileus Compression fracture Hypoxia Abdominal pain Rheumatoid arthritis flare Acute kidney injury Weakness Constipation Malaise Osteoarthritis of left knee Rotator cuff syndrome of right shoulder Shock History of fall Hemorrhagic shock Acute upper GI bleeding Abrasion of knee, bilateral Acute on chronic anemia Anorexia Acute CVA (cerebrovascular accident) Rib fractures Anemia Weight loss Neuropathy History of PFTs Physical deconditioning Alcohol abuse Marginal zone lymphoma identified in 2020 and 2021, observant management Peripheral neuropathy Onychomycosis Ex-smoker for more than 1 year History of exposure to asbestos Thoracic outlet syndrome Osteoarthritis Immunosuppression Iron deficiency anemia History of Hodgkin's lymphoma diagnosed in 2013, treated with ABVD with good result Right knee meniscal tear Seropositive rheumatoid arthritis of multiple joints Primary Sjogren's syndrome Surgical History Status post surgery Bilateral chest surgery for thoracic outlet syndrome Status post colonoscopy History of revision of total replacement of right hip joint History of arthroplasty of right hip History of arthroplasty of left shoulder Family History Other Cancer Dementia Diabetes Denies family history of CAD (coronary artery disease) Clotting disorder Hyperlipidemia Psychiatric illness Chronic kidney disease (CKD) Suicide Anesthesia complication Bleeding disorder Lung disease Hypertension Stroke Social History Smoking and tobacco/nicotine status: former use of tobacco/nicotine Quit status (tobacco/nicotine): has quit using Year quit tobacco: 2010 [id number] Second hand smoke exposure: No Alcohol intake: current Alcohol intake frequency: 0-2 Drinks per Day Alcohol type: beer Substance/Drug Use: never Caregiver/support person: No Lives independently: No Household members: other Housing: [facility] Marital status: / service: No Current occupational status: retired Pets and animals: Yes Do you think of yourself as: Straight/Heterosexual Current gender identity: Male Physical Exam Narrative: EXAM NARRATIVE: General: Alert, no acute distress. Skin: Warm, dry. Skin tear on left arm Head: Normocephalic, atraumatic. Neck: Supple, trachea midline. Eye: Extraocular movements are intact. Ears, nose, mouth and throat: Tacky oral mucosa Cardiovascular: Regular, Normal peripheral perfusion. Respiratory: Lungs are clear to auscultation, respirations are non-labored, breath sounds are equal, Symmetrical chest wall expansion. Gastrointestinal: Soft, Nontender, Non distended Musculoskeletal: Normal ROM, no deformity. Neurological: Alert and oriented, No focal neurological deficit observed. Psychiatric: Cooperative, appropriate mood & affect. Course Vital Signs: Vital signs: Vital Signs Temperature 98.4 F 11/14/23 18:39 Pulse Rate 75 11/14/23 19:45 Respiratory Rate 18 11/14/23 18:39 Blood Pressure 146/58 11/14/23 19:45 Pulse Oximetry 98 11/14/23 19:45 Oxygen Delivery Me thod Room Air 11/14/23 19:45 MDM - Fall Medical Decision Making Medical decision making: Differential diagnosis including but not limited to and based on the above HPI, review of systems and physical exam: In this patient with hypotension and on hospice I will check basic lab work. CBC BMP to rule out renal failure. I suspect dehydration. But also get a urinalysis to make sure he is not got an infection Orders placed to evaluate differential diagnosis based on the above differential, HPI and physical exam Lab Review: Laboratory results were reviewed and interpreted by myself the emergency room physician. Lab work is fairly unremarkable. Patient has slight anemia at 8.9. His BUN is up to 24 sodium is a little low at 129 so I think he is a bit dehydrated and fluids were given. His blood pressure improved significantly from 80 systolic to 146 systolic with fluids. Assessment and plan: Dehydration Fall Hospice care patient - Discharged home - Discussed plan with patient. Answered any questions. - Evaluation and treatment of this problem were appropriate in the emergency setting. Lab Data 11/14/23 18:45 11/14/23 18:45 Laboratory Results WBC 10.05 10^3/uL (3.29-11.43) 11/14/23 18:45 RBC 3.12 10^6/uL (3.85-5.65) L 11/14/23 18:45 Hgb 8.90 g/dL (11.27-16.99) L 11/14/23 18:45 Hct 26.2 % (37-53) L 11/14/23 18:45 MCV 84.0 fl (82-101) 11/14/23 18:45 MCH 28.5 pg (27-33) 11/14/23 18:45 MCHC 34.0 g/dL (30-55) 11/14/23 18:45 RDW 14.4 % (12.1-15.1) 11/14/23 18:45 Plt Count 227 10^3/cmm (157-399) 11/14/23 18:45 MPV 9.5 fL (7.4-10.4) 11/14/23 18:45 Neut % (Auto) 84.0 % 11/14/23 18:45 Lymph % (Auto) 6.7 % 11/14/23 18:45 [place] % (Auto) 8.6 % 11/14/23 18:45 Eos % (Auto) 0.0 % 11/14/23 18:45 Baso % (Auto) 0.3 % 11/14/23 18:45 Neut # (Auto) 8.45 10^3/uL (1.8-7.7) H 11/14/23 18:45 Lymph # (Auto) 0.7 10^3/uL (0.8-4.8) L 11/14/23 18:45 [place] # (Auto) 0.9 10^3/uL (0.2-0.9) 11/14/23 18:45 Eos # (Auto) 0.0 10^3/uL (0.0-0.8) 11/14/23 18:45 Baso # (Auto) 0.0 10^3/uL (0.0-0.1) 11/14/23 18:45 Nucleated RBC % (auto) 0 % 11/14/23 18:45 Nucleated RBCs # 0.0 /100WBC 11/14/23 18:45 Sodium 129 mmol/L (136-145) L 11/14/23 18:45 Potassium 4.7 mmol/L (3.5-5.1) 11/14/23 18:45 Chloride 95 mmol/L (98-107) L 11/14/23 18:45 Carbon Dioxide 24 mmol/L (22-29) 11/14/23 18:45 Anion Gap 14.7 (5-19) 11/14/23 18:45 BUN 24 mg/dL (8-23) H 11/14/23 18:45 Creatinine 1.1 mg/dL (0.7-1.2) 11/14/23 18:45 GFR Calculation Not Reportable 11/14/23 18:45 Glucose 131 mg/dL (65-115) H 11/14/23 18:45 Calculated Osmolality 274 mOsm/kg (285-295) L 11/14/23 18:45 Calcium 9.4 mg/dL (8.5-10.5) 11/14/23 18:45 Total Bilirubin 0.5 mg/dL (0.15-1.2) 11/14/23 18:45 AST 62 U/L (0-40) H 11/14/23 18:45 ALT 27 U/L (0-41) 11/14/23 18:45 Alkaline Phosphatase 75 U/L (40-130) 11/14/23 18:45 Total Protein 6.9 g/dL (6.6-8.7) 11/14/23 18:45 Albumin 3.5 g/dL (3.5-5.2) 11/14/23 18:45 Globulin 3.4 g/dL (1.3-4.6) 11/14/23 18:45 Urine Color Yellow (Yellow) 11/14/23 19:37 Urine Appearance Clear (CLEAR) 11/14/23 19:37 Urine pH 5 (5-7) 11/14/23 19:37 Ur Specific [place] 1.020 (1.005-1.030) 11/14/23 19:37 Urine Protein Trace (Negative) 11/14/23 19:37 Urine Glucose (UA) Norm (Normal) 11/14/23 19:37 Urine Ketones Negative (Negative) 11/14/23 19:37 Urine Blood Neg (Negative) 11/14/23 19:37 Urine Nitrate Negative (Negative) 11/14/23 19:37 Urine Bilirubin 1+ (Negative) H 11/14/23 19:37 Urine Urobilinogen Norm mg/dL (Negative) 11/14/23 19:37 Ur Leukocyte Esterase Negative (Negative) 11/14/23 19:37 Urine RBC 0-4 /hpf (0-2) H 11/14/23 19:37 Urine WBC 0-4 /hpf (0-5) H 11/14/23 19:37 Ur Squamous Epith Cells 0-4 /hpf (0-5) H 11/14/23 19:37 Amorphous Sediment Trace /hpf 11/14/23 19:37 Urine Bacteria Trace /hpf (NONE) 11/14/23 19:37 Hyaline Casts 5-10 /lpf H 11/14/23 19:37 No radiology studies performed this visit Discharge Plan Discharge Patient Disposition: Home Clinical Impression: Dehydration, Hospice care patient Condition: Stable Prescriptions: No Action ferrous sulfate 325 mg (65 mg iron) tablet 325 mg PO BID@0800,1999 Hold Instructions: Resume on 03/07/23. [id number]-epa-fish oil-vit D3 300-1,000-1,000 mg-mg-unit capsule 1 cap PO DAILY@0800 magnesium 200 mg tablet 400 mg PO DAILY@0800 (DME) Custom inserts or similar See Rx Instructions .Route .MEDSUPPLY Qty: 1 0RF Rx Instructions: to folic acid 1 mg tablet 1 mg PO DAILY@0800 Qty: 90 1RF hydroxychloroquine 200 mg tablet 200 mg PO BID Qty: 180 3RF Rx Instructions: Future refills need to be taken care of by primary care provider Biotene Dry Mouth Oral Rinse Mouthwash 15 ml MUCOUS MEMBRANE 5XD PRN (Reason: Dry Mouth) Qty: 237 1RF Rx Instructions: swish for 15-30 secs , then spit out; do not swallow Multivitamin 50 Plus Tablet 1 tab PO DAILY@0800 sennosides-docusate sodium [Stool Softener-Laxative] 8.6-50 mg Tablet 2 tab PO BID Qty: 14 0RF sucralfate 1 gram tablet 1 g PO DAILY oxycodone-acetaminophen 10-325 mg tablet 1 tab PO Q6H PRN (Reason: Pain) Isopto Tears 0.5 % Drops 1 drp eye-both Q4H Qty: 15 0RF polyethylene glycol 3350 17 gram/dose Powder 4 g PO DAILY Dry Eye Relief 1-0.2-0.2 % Drops 2 drp OPHTHALMIC (EYE) DAILY PRN (Reason: Dry Eye(S)) furosemide 40 mg tablet 40 mg PO DAILY sulfasalazine 500 mg tablet 500 mg PO BID@0800,2000 Rx Instructions: give with food (meal/snack) Discharge Orders: Discharge ED (Routine); Ordered 11/14/23 Ordered By: Karen Garcia Referrals: Barrie Bhatt, [Primary Care Provider] - Discharge Diet: Usual diet Discharge Activity: Increase activity as tolerated Patient Instructions: Fall Prevention for Older Adults (ED) Activity Restrictions/Additional Instructions: Thank you for choosing [facility] for your healthcare needs today. Please realize this is an emergency room and that we are providing you with a medical screening exam and this may not be complete and all inclusive of all the testing and or work up that you may need to determine your ailment or severity of your illness. You have been screened and evaluated and felt safe for discharge. Health conditions do change or evolve sometimes and as such it is important that you follow up with your Primary Doctor to be re checked, 3-5 days is a general good time frame for follow up. You are always welcome to return to the ED for re assessment if your symptoms are worsening or you have new concerns Coding Level of Care Code ED File Conversion Operator for Chadwick Velasquez
[2023-11-14 19:16] VITALS: BP 91/56; O2SAT 98
[2023-11-14 19:20] LABS: Alanine Aminotransferase 27 U/L (0-41); Albumin Level 3.5 g/dL (3.5-5.2); Alkaline Phosphatase 75 U/L (40-130); Anion Gap 14.7 (5-19); Aspartate Amino Transferase 62 U/L (0-40); Blood Urea Nitrogen 24 mg/dL (8-23); Calcium 9.4 mg/dL (8.5-10.5); Carbon Dioxide 24 mmol/L (22-29); Chloride 95 mmol/L (98-107); Creatinine Clr Calc Pharmacy 34.3629; Globulin 3.4 g/dL (1.3-4.6); Glucose 131 mg/dL (65-115); Osmolality Calculated 274 mOsm/kg (285-295); Potassium 4.7 mmol/L (3.5-5.1); Sodium 129 mmol/L (136-145); Total Bilirubin 0.5 mg/dL (0.15-1.2); Total Protein 6.9 g/dL (6.6-8.7)
[2023-11-14 19:45] VITALS: BP 146/58; PULSE 75; O2SAT 98
[2023-11-14 20:20] LABS: Bilirubin Urine 1+ (Negative); Blood Urine Neg (Negative); Glucose Urine UA Norm (Normal); Ketones Urine Negative (Negative); Leukocyte Esterase Urine Negative (Negative); Nitrate Urine Negative (Negative); Protein Urine Trace (Negative); Urine Appearance Clear (CLEAR); Urine Color Yellow (Yellow); Urobilinogen Urine Norm (Negative); pH Urine 5 (5-7)
[2023-11-14 20:21] LABS: Bacteria Urine TRACE /hpf; RBC Urine 0-4 /hpf (0-2); Squamous Epithelial Cell Urine 0-4 /hpf (0-5); WBC Urine 0-4 /hpf (0-5)
[2023-11-14 20:22] LABS: Add Urine Culture? No; Amorphous Sediment Urine TRACE /hpf
--- NOTE | 2023-11-14 21:31 | PC.NURSE ---
This nurse spoke with friend Scott, who stated that he would not be able to come pickup patient to transport back home.
[2023-11-14 22:09] VITALS: BP 107/66
== END 2023-11-14 22:11 | disposition home or self-care (01) ==
PROVIDERS: Emergency Provider Emergency Medicine; PCP Internal Medicine
DX: E86.0 Dehydration (principal); Z87.891 Personal history of nicotine dependence; Z86.73 Personal history of transient ischemic attack (TIA), and cerebral infarction without residual deficits; Z85.71 Personal history of Hodgkin lymphoma
CPT/HCPCS: 80053; 81001; 85025; 96360; 99284; J7030

== ENCOUNTER → 2023-11-23 13:27 | Outpatient (BNVA) | payer MEDICARE, SELFPAY | PROVIDERS: PCP Internal Medicine; Visit Provider Internal Medicine Rheumatology | DX: M05.79 Rheumatoid arthritis with rheumatoid factor of multiple sites without organ or systems involvement (principal); Z51.81 Encounter for therapeutic drug level monitoring; M35.00 Sjogren syndrome, unspecified; C85.80 Other specified types of non-Hodgkin lymphoma, unspecified site; Z87.891 Personal history of nicotine dependence; Z85.72 Personal history of non-Hodgkin lymphomas | CPT/HCPCS: 99214 ==

== ENCOUNTER 2024-02-18 13:03 | Emergency (ER) | payer MEDICARE, SELFPAY ==
[2024-02-18 13:08] VITALS: BP 120/74; PULSE 78; RESP 18; O2SAT 98
[2024-02-18 13:15] VITALS: TEMP 36.6
[2024-02-18] MEDS: lidocaine-epi 1% PF 1:200,000 30 mL SDV 20 ML INJECTION (13:55)
--- NOTE | 2024-02-18 14:16 | W.ED.WOUNDLC ---
HPI - Wound/Laceration General: Chief Complaint: Wound/Laceration Stated Complaint: head lac s/p fall Time Seen by Provider: 02/18/24 13:06 History of Present Illness: Pleasant 78 yo m on home hospice for lymphoma with chronic gait instability/recurrent falls. States his walker went sideways on him a little and hit the wall causing him to lose balance and fall backwards. He hit the back of his head and has an approximately 2 and half centimeter laceration there. There is an associated hematoma. Patient also has a skin tear near the right wrist and 3 small skin tears on the left forearm and elbow. Patient has ongoing issues with skin tears and thin skin. He has 2 previous skin tears on the left forearm and left elbow as well. Patient denies any pain. Patient explicitly states that he does not want any imaging studies. I explained to him the trauma guidelines for patients over the age of 65 and minor closed head injury and the risk of bleeding within the school and how this can be considered dangerous or life-threatening. Patient understands. He is on hospice. He would not do anything about it even if he had bleeding. He declines a CT scan of the head or other imaging. Patient does have medical decision making capacity at the time of this encounter. Related Data Home Medications Medication Instructions Recorded Confirmed ferrous sulfate 325 mg (65 mg 325 mg PO BID@799,199906/19/19 11/23/23 iron) tablet magnesium 200 mg tablet 400 mg PO DAILY@79906/19/19 11/23/23 fa-8-aje-epa-fish oil-vit D3 300 1 cap PO DAILY@79906/19/19 11/23/23 mg-1,000 mg-1,000 unit capsule fsezpxvonnrd-ksbjfzgy-mlvtli 1 tab PO DAILY@79906/16/20 11/23/23 tablet (Multivitamin 50 Plus tablet) peg 307-hplcppzyahyr-bhimjruo 1 2 drp ophthalmic (eye) DAILY PRN 02/23/23 11/23/23 %-0.2 %-0.2 % eye drops (Dry Eye Dry Eye(S) Relief) polyethylene glycol 3350 17 4 g PO DAILY 02/23/23 11/23/23 gram/dose oral powder oxycodone-acetaminophen 10 mg-325 1 tab PO Q6H PRN Pain 06/30/23 11/23/23 mg tablet sucralfate 1 gram tablet 1 g PO DAILY 06/30/23 11/23/23 furosemide 40 mg tablet 40 mg PO DAILY 09/01/23 11/23/23 Previous Rx's Medication Instructions Recorded Custom inserts or similar #1 ea 06/21/22 sennosides 8.6 mg-docusate sodium 2 tab PO BID #14 tabs 02/03/23 50 mg tablet (Stool Softener-Laxative) artificial tears(hypromellose) 0.5 1 drp eye-both Q4H #15 mL 07/04/23 % eye drops (Isopto Tears) saliva substitute combo no.9 15 ml mucous membrane 5XD PRN Dry 07/05/23 (Biotene Dry Mouth Oral Rinse Mouth #237 mL mouthwash) folic acid 1 mg tablet 1 mg PO DAILY@0800 #90 tabs 11/23/23 hydroxychloroquine 200 mg tablet 200 mg PO BID #180 tabs 11/23/23 sulfasalazine 500 mg tablet 500 mg PO BID #180 tabs 11/23/23 Allergies Allergy/AdvReac Type Severity Reaction Status Date / Time No Known Allergies Allergy Verified 11/23/23 13:56 Review of Systems General: Reports: 10 or more systems reviewed and unremarkable except in HPI and below Narrative: Patient endorses chronic gait instability. Chronic weakness. Chronic bilateral lower extremity edema. He endorses recurrent skin tears. He reports he has no pain. He does not endorse any other acute changes to his condition. He thinks this was a mechanical fall due to the fact that his walker wheel got stuck against the wall and caused him to lose his balance. PFS ED PFSH: Medical History (Updated 02/18/24 @ 14:13 by Conrado Vargas MD) Seropositive rheumatoid arthritis of multiple joints Primary Sjogren's syndrome Marginal zone lymphoma identified in 2020 and 2021, observant management Recurrent falls Generalized weakness Compression fracture Bladder mass Abdominal pain Ileus Compression fracture Hypoxia Abdominal pain Rheumatoid arthritis flare Acute kidney injury Weakness Constipation Malaise Osteoarthritis of left knee Rotator cuff syndrome of right shoulder Shock History of fall Hemorrhagic shock Acute upper GI bleeding Abrasion of knee, bilateral Acute on chronic anemia Anorexia Acute CVA (cerebrovascular accident) Rib fractures Anemia Weight loss Neuropathy History of PFTs Physical deconditioning Alcohol abuse Peripheral neuropathy Onychomycosis Ex-smoker for more than 1 year History of exposure to asbestos Thoracic outlet syndrome Osteoarthritis Immunosuppression Iron deficiency anemia History of Hodgkin's lymphoma diagnosed in 2014, treated with ABVD with good result Right knee meniscal tear Surgical History Status post surgery Bilateral chest surgery for thoracic outlet syndrome Status post colonoscopy History of revision of total replacement of right hip joint History of arthroplasty of right hip History of arthroplasty of left shoulder Family History Other Cancer Dementia Diabetes Denies family history of CAD (coronary artery disease) Clotting disorder Hyperlipidemia Psychiatric illness Chronic kidney disease (CKD) Suicide Anesthesia complication Bleeding disorder Lung disease Hypertension Stroke Social History Smoking and tobacco/nicotine status: former use of tobacco/nicotine Quit status (tobacco/nicotine): has quit using Year quit tobacco: 2010 [id number] Second hand smoke exposure: No Alcohol intake: current Alcohol intake frequency: 0-2 Drinks per Day Alcohol type: beer Substance/Drug Use: never Caregiver/support person: No Lives independently: No Household members: other Housing: Retirement Marital status: / service: No Current occupational status: retired Pets and animals: Yes Do you think of yourself as: Straight/Heterosexual Current gender identity: Male Physical Exam Narrative: EXAM NARRATIVE: This is a pleasant but elderly deconditioned male. He is awake and alert. He is conversational. He has a 2.5 cm laceration to the occipital region slightly left of midline. Bleeding is controlled. There is an underlying hematoma. There is no skull deformity or tenderness underlying it. He does not have any C-spine tenderness or spine tenderness. Passive and active range of motion of all of his extremities reveals chronic soreness but he reports nothing new or changed. No deformities. He has bad bilateral lower extremity edema which she reports he is on water pills for. Pelvis is stable. Abdomen is soft and nontender. Chest wall is nontender. He has skin tears. There is a small curvilinear superficial skin tear on the right wrist, 3 new skin tears on the left upper extremity 1 near the elbow and 2 on the forearm. 2 old skin tears on the left forearm and elbow. No signs of any infection. No bony injuries. Range of motion normal. Const: COMMON NORMALS: no limitations and alert EXAM LIMITATIONS: no altered mental status HENMT: COMMON NORMALS: normocephalic and external ears normal HEAD & SCALP: normocephalic EXTERNAL EAR: Yes external ears normal MOUTH: no muffled voice Eye: COMMON NORMALS: EOMs intact bilaterally, conjunctivae normal and no scleral icterus CONJUNCTIVA: Yes conjunctivae normal Neck/C-Spine: COMMON NORMALS: no JVD GENERAL: Yes normal visual inspection and Yes trachea midline Resp: COMMON NORMALS: normal respiratory effort, No use of accessory muscles and clear to auscultation bilaterally AUSCULTATION: clear to auscultation bilaterally Cardio: COMMON NORMALS: no JVD GI: COMMON NORMALS: Soft to palpation and non-tender PALPATION: Yes Soft to palpation and No Guarding due to palpation present (GI) Neuro: COMMON NORMALS: moves all extremities, no focal motor deficits and no sensory deficits noted SENSORIUM/ORIENTATION: Yes alert SPEECH: speech normal Psych: COMMON NORMALS: mental status grossly normal, Normal thought process present, cooperative, normal affect and speech normal SPEECH: Yes normal speech THOUGHT PROCESS: Normal thought process present Procedures Laceration Laceration 1: Site: scalp Size (cm): 2.5 Description: linear Depth: simple, single layer Local Anesthetic: lidocaine 1% and with epi Amount of anesthesia used (mL): 5 Pre-repair: wound explored (Cleansed with povidone iodine and saline. No foreign bodies.) Skin layer closed with: other (Hunter) Number of sutures: 6 Course Vital Signs: Vital signs: Vital Signs Temperature 97.8 F 02/18/24 13:15 Pulse Rate 78 02/18/24 13:08 Respiratory Rate 18 02/18/24 13:08 Blood Pressure 120/74 02/18/24 13:08 Pulse Oximetry 98 02/18/24 13:08 Oxygen Delivery Me thod Room Air 02/18/24 13:08 MDM - Wound/Laceration Medical Decision Making 1. Minor closed head injury. Age greater than [address] imaging. Patient aware of low mechanisms potentially leading to subdural and related illnesses. Patient on hospice. He has capacity for medical decision making regarding this. Will close his scalp laceration and defer imaging per his request. 2. Skin tears. Patient reports up-to-date on tetanus. Very thin skin. Recurrent skin tears. We will change the dressings to his 2 old skin tears and clean and apply dressings to the new skin tears. None of them are large. They should heal well with just reapproximating the skin and bandaging. 3. Scalp laceration 2.5 cm. Patient amenable to staple repair. This was performed without difficulty. No radiology studies performed this visit Discharge Plan Discharge Patient Disposition: Home Clinical Impression: Multiple skin tears Laceration of occipital region of scalp without complication Qualifiers: Encounter type: initial encounter Qualified Code(s): S01.01XA - Laceration without foreign body of scalp, initial encounter Minor head injury without loss of consciousness Qualifiers: Encounter type: initial encounter Qualified Code(s): S09.90XA - Unspecified injury of head, initial encounter Condition: Stable Prescriptions: No Action ferrous sulfate 325 mg (65 mg iron) tablet 325 mg PO BID@0800,2000 Hold Instructions: Resume on 03/07/23. xd-7-mtf-epa-fish oil-vit D3 300-1,000-1,000 mg-mg-unit capsule 1 cap PO DAILY@0800 magnesium 200 mg tablet 400 mg PO DAILY@0800 folic acid 1 mg tablet 1 mg PO DAILY@0800 Qty: 90 1RF hydroxychloroquine 200 mg tablet 200 mg PO BID Qty: 180 1RF Rx Instructions: Future refills need to be taken care of by primary care provider sulfasalazine 500 mg tablet 500 mg PO BID Qty: 180 1RF Rx Instructions: give with food (meal/snack) (DME) Custom inserts or similar See Rx Instructions .Route .MEDSUPPLY Qty: 1 0RF Rx Instructions: to Biotene Dry Mouth Oral Rinse Mouthwash 15 ml MUCOUS MEMBRANE 5XD PRN (Reason: Dry Mouth) Qty: 237 1RF Rx Instructions: swish for 15-30 secs , then spit out; do not swallow Multivitamin 50 Plus Tablet 1 tab PO DAILY@0800 sennosides-docusate sodium [Stool Softener-Laxative] 8.6-50 mg Tablet 2 tab PO BID Qty: 14 0RF sucralfate 1 gram tablet 1 g PO DAILY oxycodone-acetaminophen 10-325 mg tablet 1 tab PO Q6H PRN (Reason: Pain) Isopto Tears 0.5 % Drops 1 drp eye-both Q4H Qty: 15 0RF polyethylene glycol 3350 17 gram/dose Powder 4 g PO DAILY Dry Eye Relief 1-0.2-0.2 % Drops 2 drp OPHTHALMIC (EYE) DAILY PRN (Reason: Dry Eye(S)) furosemide 40 mg tablet 40 mg PO DAILY Discharge Orders: Discharge ED (Routine); Ordered 02/18/24 Ordered By: Conrado Vargas Referrals: Barrie Bhatt, [Primary Care Provider] - 1 week (Staple Removal scalp) Patient Instructions: Head Injury (ED), Skin Tear (ED) Activity Restrictions/Additional Instructions: You have declined CT scan of the head for minor closed head injury. You do have a scalp laceration that required hunter. 6 hunter were placed. They need to be removed in 1 week. They can be removed in the ER or at your primary care doctor's office. Your skin tears will need ongoing bandaging. Please use a nonstick pads such as 4 x 4's or Telfa pads overlying the skin tears. Change the dressings at least every 48 hours. You should also change them whenever soiled. If you see signs of infection such as redness, pain, swelling, discharge, streaking, fever then you need to call your doctor or go to ER. Coding Level of Care Code ED Floor Inspector for Chadwick Velasquez
[2024-02-18 15:33] VITALS: BP 114/76; PULSE 71; RESP 16; O2SAT 95
== END 2024-02-18 14:49 | disposition home or self-care (01) ==
PROVIDERS: Emergency Provider Emergency Medicine; PCP Internal Medicine
DX: S01.01XA Laceration without foreign body of scalp, initial encounter (principal); Z87.891 Personal history of nicotine dependence; Z86.73 Personal history of transient ischemic attack (TIA), and cerebral infarction without residual deficits; Z85.71 Personal history of Hodgkin lymphoma; W18.39XA Other fall on same level, initial encounter
CPT/HCPCS: 12001; 99283

== ENCOUNTER 2024-02-22 07:46 | Inpatient (IN) | payer MEDICARE, SELFPAY ==
[2024-02-22] VITALS (11 sets, daily range): BP systolic 92–125; BP diastolic 55–89; PULSE 75–112; RESP 16–20; TEMP 37.1–37.3; O2SAT 90–95; BMI 16.6; BMI 21.2
--- NOTE | 2024-02-22 07:59 | XRR_ITS ---
PROCEDURE INFORMATION: Exam: XR Right Hip Exam date and time: 02/22/2024 8:04 AM Age: 78 years old Clinical indication: Injury or trauma; Fall; Blunt trauma (contusions or hematomas); Right; Prior surgery; Surgery date: 6+ months; Surgery type: RT hip; Patient HX: HX of lymphoma TECHNIQUE: Imaging protocol: Radiologic exam of the right hip. Views: 1 view hip with pelvis when performed. COMPARISON: CT abdomen pelvis w con* [id number] 06/30/2023 12:03 AM FINDINGS: Bones/joints: Posttraumatic and postsurgical change of the right hip without evidence for acute abnormality. Near-complete bridging of heterotopic ossification across the right femoroacetabular joint arthroplasty. Cortical irregularity of the inferior right pubic ramus. Diffuse osteopenia. Soft tissues: Unremarkable. XR/XR hip RT 2-3V wo/w pel* [id number] IMPRESSION: 1. Inferior right pubic ramus fracture with comminution and mild displacement. CT of the pelvis can be obtained for further assessment if clinically necessary. 2. Residual findings as above.
--- NOTE | 2024-02-22 08:19 | ED_ITS ---
HPI - Fall 2 General: Chief Complaint: Fall Stated Complaint: RT hip and Leg pain post fall Time Seen by Provider: 02/22/24 07:54 History of Present Illness: 78-year-old male brought in by EMS. Tania cazares has a history of frequent falls. Patient fell 4 days ago seen in the ER and has some ada placed in his head. Patient fell again yesterday and is complaining of right hip pain. Patient has a previous right hip prosthetic surgery. EMS reports that he refused to come in yesterday. That they got called out again today because he was still unable to get up and was where they placed him. Patient complains of pain in his hip. Patient has some baseline rotation and shortening Related Data Home Medications Medication Instructions Recorded Confirmed ferrous sulfate 325 mg (65 mg 325 mg PO BID@08,199906/19/19 02/22/24 iron) tablet magnesium 200 mg tablet 400 mg PO DAILY@79906/19/19 02/22/24 cd-1-vxb-epa-fish oil-vit D3 300 1 cap PO DAILY@79906/19/19 02/22/24 mg-1,000 mg-1,000 unit capsule frushthqousm-lmqcpdcf-keaxvq 1 tab PO DAILY@79906/16/20 02/22/24 tablet (Multivitamin 50 Plus tablet) peg 189-ufqwtnelowts-phwtaglt 1 2 drp ophthalmic (eye) DAILY PRN 02/23/23 02/22/24 %-0.2 %-0.2 % eye drops (Dry Eye Dry Eye(S) Relief) polyethylene glycol 3350 17 4 g PO DAILY 02/23/23 02/22/24 gram/dose oral powder oxycodone-acetaminophen 10 mg-325 1 tab PO Q6H PRN Pain 06/30/23 02/22/24 mg tablet sucralfate 1 gram tablet 1 g PO DAILY 06/30/23 02/22/24 furosemide 40 mg tablet 40 mg PO DAILY 09/01/23 02/22/24 Previous Rx's Medication Instructions Recorded Custom inserts or similar #1 ea 06/21/22 sennosides 8.6 mg-docusate sodium 2 tab PO BID #14 tabs 02/03/23 50 mg tablet (Stool Softener-Laxative) artificial tears(hypromellose) 0.5 1 drp eye-both Q4H #15 mL 07/04/23 % eye drops (Isopto Tears) saliva substitute combo no.9 15 ml mucous membrane 5XD PRN Dry 07/05/23 (Biotene Dry Mouth Oral Rinse Mouth #237 mL mouthwash) folic acid 1 mg tablet 1 mg PO DAILY@0800 #90 tabs 11/23/23 hydroxychloroquine 200 mg tablet 200 mg PO BID #180 tabs 11/23/23 sulfasalazine 500 mg tablet 500 mg PO BID #180 tabs 11/23/23 Allergies Allergy/AdvReac Type Severity Reaction Status Date / Time No Known Allergies Allergy Verified 02/22/24 08:00 [facility] ED 2 [facility]: Medical History (Updated 02/22/24 @ 11:40 by Will Goode DO) Seropositive rheumatoid arthritis of multiple joints Primary Sjogren's syndrome Marginal zone lymphoma identified in 2020 and 2021, observant management Recurrent falls Generalized weakness Compression fracture Bladder mass Abdominal pain Ileus Compression fracture Hypoxia Abdominal pain Rheumatoid arthritis flare Acute kidney injury Weakness Constipation Malaise Osteoarthritis of left knee Rotator cuff syndrome of right shoulder Shock History of fall Hemorrhagic shock Acute upper GI bleeding Abrasion of knee, bilateral Acute on chronic anemia Anorexia Acute CVA (cerebrovascular accident) Rib fractures Anemia Weight loss Neuropathy History of PFTs Physical deconditioning Alcohol abuse Peripheral neuropathy Onychomycosis Ex-smoker for more than 1 year History of exposure to asbestos Thoracic outlet syndrome Osteoarthritis Immunosuppression Iron deficiency anemia History of Hodgkin's lymphoma diagnosed in 2013, treated with ABVD with good result Right knee meniscal tear Surgical History Status post surgery Bilateral chest surgery for thoracic outlet syndrome Status post colonoscopy History of revision of total replacement of right hip joint History of arthroplasty of right hip History of arthroplasty of left shoulder Family History Other Cancer Dementia Diabetes Denies family history of CAD (coronary artery disease) Clotting disorder Hyperlipidemia Psychiatric illness Chronic kidney disease (CKD) Suicide Anesthesia complication Bleeding disorder Lung disease Hypertension Stroke Social History Smoking and tobacco/nicotine status: former use of tobacco/nicotine Quit status (tobacco/nicotine): has quit using Year quit tobacco: 2010 [id number] Second hand smoke exposure: No Alcohol intake: current Alcohol intake frequency: 0-2 Drinks per Day Alcohol type: beer Substance/Drug Use: never Caregiver/support person: No Lives independently: No Household members: other Housing: [facility] Marital status: / service: No Current occupational status: retired Pets and animals: Yes Do you think of yourself as: Straight/Heterosexual Current gender identity: Male Course 2 Vital Signs: Vital signs: Vital Signs Temperature 99.2 F 02/22/24 07:47 Pulse Rate 84 02/22/24 09:56 Respiratory Rate 16 02/22/24 07:47 Blood Pressure 97/68 02/22/24 09:56 Pulse Oximetry 94 02/22/24 07:47 MDM - Fall Medical Decision Making Patient's imaging was ordered reviewed and shows multiple fractures. Patient has pubic rami along with acetabular fractures. I did have [facility] review CT scans. At this time they recommended there is no surgical intervention that they recommended admission with physical therapy with a walker with tiptoe weightbearing and advance as tolerated. Patient will likely need placement. Patient will be admitted for physical therapy and further management of pain. Discussed case with both Dr. Mancilla and Dr. Dobbs. Patient was stable upon admission. Lab Data 02/22/24 09:09 02/22/24 09:09 Radiology Impressions Hip/Pelvis X-Ray 02/22/24 07:59 IMPRESSION: 1. Inferior right pubic ramus fracture with comminution and mild displacement. CT of the pelvis can be obtained for further assessment if clinically necessary. 2. Residual findings as above. Laboratory Results WBC 8.32 10^3/uL (3.29-11.43) 02/22/24 09:09 RBC 3.31 10^6/uL (3.85-5.65) L 02/22/24 09:09 Hgb 9.50 g/dL (11.27-16.99) L 02/22/24 09:09 Hct 29.6 % (37-53) L 02/22/24 09:09 MCV 89.4 fl (82-101) 02/22/24 09:09 MCH 28.7 pg (27-33) 02/22/24 09:09 MCHC 32.1 g/dL (30-55) 02/22/24 09:09 RDW 14.2 % (12.1-15.1) 02/22/24 09:09 Plt Count 135 10^3/cmm (157-399) L 02/22/24 09:09 MPV 10.0 fL (7.4-10.4) 02/22/24 09:09 Neut % (Auto) 80.6 % 02/22/24 09:09 Lymph % (Auto) 8.1 % 02/22/24 09:09 [place] % (Auto) 9.7 % 02/22/24 09:09 Eos % (Auto) 0.7 % 02/22/24 09:09 Baso % (Auto) 0.5 % 02/22/24 09:09 Neut # (Auto) 6.71 10^3/uL (1.8-7.7) 02/22/24 09:09 Lymph # (Auto) 0.7 10^3/uL (0.8-4.8) L 02/22/24 09:09 [place] # (Auto) 0.8 10^3/uL (0.2-0.9) 02/22/24 09:09 Eos # (Auto) 0.1 10^3/uL (0.0-0.8) 02/22/24 09:09 Baso # (Auto) 0.0 10^3/uL (0.0-0.1) 02/22/24 09:09 Nucleated RBC % (auto) 0 % 02/22/24 09:09 Nucleated RBCs # 0.0 /100WBC 02/22/24 09:09 Sodium 139 mmol/L (136-145) 02/22/24 09:09 Potassium 4.2 mmol/L (3.5-5.1) 02/22/24 09:09 Chloride 106 mmol/L (98-107) 02/22/24 09:09 Carbon Dioxide 27 mmol/L (22-29) 02/22/24 09:09 Anion Gap 10.2 (5-19) 02/22/24 09:09 BUN 11 mg/dL (8-23) 02/22/24 09:09 Creatinine 0.7 mg/dL (0.7-1.2) 02/22/24 09:09 GFR Calculation Not Reportable 02/22/24 09:09 Glucose 116 mg/dL (65-115) H 02/22/24 09:09 Calculated Osmolality 288 mOsm/kg (285-295) 02/22/24 09:09 Calcium 9.2 mg/dL (8.5-10.5) 02/22/24 09:09 All radiology interpretation(s) finalized by discharge Discharge Plan Discharge Patient Disposition: Admitted As Inpatient Clinical Impression: Fracture of inferior pubic ramus, Acetabulum fracture, right Condition: Stable Coding Level of Care Code ED Lockstitch Hemmer for Chadwick Velasquez
--- NOTE | 2024-02-22 09:09 | CT_ITS ---
WS: [id number] Noncontrast of the pelvis TECHNIQUE: CT bony pelvis with coronal and sagittal reformatted images. CLINICAL INFORMATION: hip pain DLP: 309.[address] scans at [facility] use at least one of these dose optimization techniques: automated e xposure control; mA and/or kV adjustment per patient size (includes targeted exams where dose is matc hed to clinical indication); or iterative reconstruction. FINDINGS: Advanced osteopenia decreases sensitivity for fracture assessment. Postoperative changes longstem RIGHT [place] with cerclage wires. Heterotopic ossification about the [place]. Diffuse lucency about the femoral shaft component. Recommend orthopedic follow-up. Moderate degenera tive arthritis LEFT hip. Nondisplaced fracture involving the RIGHT sacral ala. Comminuted fractures involving the RIGHT inferi or pubic ramus. Additional tiny nondisplaced fracture involving the RIGHT aspect of the coccyx. Chron ic irregularity with prior healed fractures involving the mid and distal coccyx. Comminuted superior RIGHT pubic ramus fracture extending to the pubic root. Fracture extends into the anterior superior acetabular roof. This is somewhat difficult to assess due to beam hardening artifa ct from RIGHT [place] and is best visualized on the sagittal and coronal imaging. LEFT inferior pubic ramus appears normal. Normal pubic symphysis. Advanced facet arthropathy lower l umbar spine. Degenerative arthritis sacroiliac joints. Normal iliac wings. Evidence of prior healed s acrococcygeal midline fracture with callus formation. 3.8 x 2.7 cm anterior bladder dome mass was present on the prior studies but appears increased in siz e. Chronic heterotopic calcification along the RIGHT pelvic sidewall similar in appearance. Fluid bony ng the RIGHT inguinal canal. Vascular calcification. IMPRESSION 1. Advanced osteopenia. 2. Minimally depressed RIGHT sacral ala fracture has an acute appearance. 3. Additional comminuted fracture involving the RIGHT superior pubic ramus extending into the pubic root and anterior acetabular roof. 4. Additional tiny fracture involving the RIGHT coccyx. 5. Additional chronic irregularity with prior healed fractures involving the distal coccyx. 6. Comminuted acute RIGHT inferior pubic ramus fracture. 7. Prior postoperative changes longstem RIGHT [place] with femoral selin component and heterotopic ossific ation. Diffuse lucency about the proximal femoral shaft component. Recommend orthopedic follow-up. 8. 3.8 x 2.7 cm bladder dome mass was present on the prior studies but appears increased since 2023. Recommend urology consultation.
[2024-02-22 09:18] LABS: Basophils % 0.5 %; Eosinophils # 0.1 10^3/uL (0.0-0.8); Eosinophils % 0.7 %; Hematocrit 29.6 % (37-53); Lymphocytes # 0.7 10^3/uL (0.8-4.8); Lymphocytes % 8.1 %; Mean Corpuscular HGB Conc 32.1 g/dL (30-55); Mean Corpuscular Hemoglobin 28.7 pg (27-33); Mean Corpuscular Volume 89.4 fl (82-101); Monocytes # 0.8 10^3/uL (0.2-0.9); Monocytes % 9.7 %; Neutrophils # 6.71 10^3/uL (1.8-7.7); Neutrophils % 80.6 %; Nucleated Red Blood Cells % 0 %; Platelet Count 135 10^3/cmm (157-399); Red Blood Count 3.31 10^6/uL (3.85-5.65); Red Cell Distribution Width 14.2 % (12.1-15.1); White Blood Count 8.32 10^3/uL (3.29-11.43)
[2024-02-22 09:43] LABS: Anion Gap 10.2 (5-19); Blood Urea Nitrogen 11 mg/dL (8-23); Calcium 9.2 mg/dL (8.5-10.5); Carbon Dioxide 27 mmol/L (22-29); Chloride 106 mmol/L (98-107); Glucose 116 mg/dL (65-115); Osmolality Calculated 288 mOsm/kg (285-295); Potassium 4.2 mmol/L (3.5-5.1); Sodium 139 mmol/L (136-145)
[2024-02-22 09:46] LABS: Slide Review Slide Review Perform
[2024-02-22] MEDS: HYDROcodone-acetaminophen 5-325 mg Tablet 1 TAB PO (09:46)
--- NOTE | 2024-02-22 12:30 | PM.HP ---
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 Patient reports that he lost his balance while using his walker and landed on his buttocks. Patient has decreased sensation in his feet. Patient denies LOC or hitting his head or having stroke-like symptoms or a seizure. EMS was called yesterday to attend to the patient, but patient refused to go to the hospital. He called EMS again today because he was in substantial pain in his right hip and sacral area on pain scale of 8/10. Patient denies chest pain, SOB, headache, or new weakness. Patient is on hospice, reported to be seen 1-2 times a week. Review of Systems General: Reports: 10 or more systems reviewed and unremarkable except in HPI and below Medications/Allergies Home Medications Medication Instructions Recorded Confirmed Last Taken Type ferrous sulfate 325 mg (65 mg 325 mg PO BID@08,199906/19/19 02/22/24 02/21/24 History iron) tablet magnesium 200 mg tablet 400 mg PO DAILY@00 06/19/19 02/22/24 02/23/23 History wf-2-crn-epa-fish oil-vit D3 300 1 cap PO DAILY@79906/19/19 02/22/24 02/21/24 History mg-1,000 mg-1,000 unit capsule bkbvjxnmcnaq-ojfzofgo-duccdp 1 tab PO DAILY@0800 06/16/20 02/22/24 02/21/24 History tablet (Multivitamin 50 Plus tablet) Custom inserts or similar #1 ea 06/21/22 02/22/24 Unknown Rx sennosides 8.6 mg-docusate sodium 2 tab PO BID #14 tabs 02/03/23 02/22/24 02/23/23 Rx 50 mg tablet (Stool Softener-Laxative) peg [id number]-edfmjuzp 1 2 drp ophthalmic (eye) DAILY PRN 02/23/23 02/22/24 02/21/24 History %-0.2 %-0.2 % eye drops (Dry Eye Dry Eye(S) Relief) polyethylene glycol 3350 17 4 g PO DAILY 02/23/23 02/22/24 02/23/23 History gram/dose oral powder oxycodone-acetaminophen 10 mg-325 1 tab PO Q6H PRN Pain 06/30/23 02/22/24 02/21/24 History mg tablet sucralfate 1 gram tablet 1 g PO DAILY 06/30/23 02/22/24 02/21/24 History artificial tears(hypromellose) 0.5 1 drp eye-both Q4H #15 mL 07/04/23 02/22/24 Unknown Rx % eye drops (Isopto Tears) saliva substitute combo no.9 15 ml mucous membrane 5XD PRN Dry 07/05/23 02/22/24 Unknown Rx (Biotene Dry Mouth Oral Rinse Mouth #237 mL mouthwash) furosemide 40 mg tablet 40 mg PO DAILY 09/01/23 02/22/24 02/21/24 History folic acid 1 mg tablet 1 mg PO DAILY@0800 #90 tabs 11/23/23 02/22/24 02/21/24 Rx hydroxychloroquine 200 mg tablet 200 mg PO BID #180 tabs 11/23/23 02/22/24 02/21/24 Rx sulfasalazine 500 mg tablet 500 mg PO BID #180 tabs 11/23/23 02/22/24 02/21/24 Rx Allergies Allergy/AdvReac Type Severity Reaction Status Date / Time No Known Allergies Allergy Verified 02/22/24 08:00 PFSH Acute PFSH: Medical History Anemia Seropositive rheumatoid arthritis of multiple joints Primary Sjogren's syndrome Marginal zone lymphoma identified in 2020 and 2021, observant management Recurrent falls Generalized weakness Compression fracture Bladder mass Abdominal pain Ileus Compression fracture Hypoxia Abdominal pain Rheumatoid arthritis flare Acute kidney injury Weakness Constipation Malaise Osteoarthritis of left knee Rotator cuff syndrome of right shoulder Shock History of fall Hemorrhagic shock Acute upper GI bleeding Abrasion of knee, bilateral Acute on chronic anemia Anorexia Acute CVA (cerebrovascular accident) Rib fractures Weight loss Neuropathy History of PFTs Physical deconditioning Alcohol abuse Peripheral neuropathy Onychomycosis Ex-smoker for more than 1 year History of exposure to asbestos Thoracic outlet syndrome Osteoarthritis Immunosuppression Iron deficiency anemia History of Hodgkin's lymphoma diagnosed in 2013, treated with ABVD with good result Right knee meniscal tear Surgical History Status post surgery Bilateral chest surgery for thoracic outlet syndrome Status post colonoscopy History of revision of total replacement of right hip joint History of arthroplasty of right hip History of arthroplasty of left shoulder Family History Other Cancer Dementia Diabetes Denies family history of CAD (coronary artery disease) Clotting disorder Hyperlipidemia Psychiatric illness Chronic kidney disease (CKD) Suicide Anesthesia complication Bleeding disorder Lung disease Hypertension Stroke Social History Smoking and tobacco/nicotine status: former use of tobacco/nicotine Quit status (tobacco/nicotine): has quit using Year quit tobacco: 2010 [id number] Second hand smoke exposure: No Alcohol intake: current Alcohol intake frequency: 0-2 Drinks per Day Alcohol type: beer Substance/Drug Use: never Caregiver/support person: No Lives independently: No Household members: other Housing: [facility] Marital status: / service: No Current occupational status: retired Pets and animals: Yes Do you think of yourself as: Straight/Heterosexual Current gender identity: Male Vitals/I&O/Wt Last Vital Signs Temp 99.2 F 02/22/24 07:47 Pulse 84 02/22/24 09:56 Resp 16 02/22/24 07:47 BP 97/68 02/22/24 09:56 Pulse Ox 94 02/22/24 07:47 Weight last 48 hrs Weight 100 lb Physical Exam Narrative: Patient is an alert frail elderly man that has right hip and sacral pain HENMT: normocephalic, has ada in the occipital area due to prior laceration EYE: PERRL, EOMs intact, anicteric sclera Neck: supple without thyromegaly or lymphadenopthy Resp: Bilateral breath sounds, clear to auscultation, normal chest wall expansion Cardio: Normal rate and rhythm without murmurs, gallops, or rubs GI: soft, nondistened, nontender with bowel sounds : Deferred Back/Pelvis: unable to view secondary to patient's pain with movement, will wait to view when patient is moved to [facility] floor Extremity: slighting externally rotated right leg; bilateral dark, hyperpigmented patches on shins; Right foot abnormality, externally rotated and contractured in appearance secondary to past surgery. Data 02/22/24 09:09 02/22/24 09:09 Other Labs: Hip/Pelvic X-ray showed comminuted fracture of right inferior ramus Pelvis CT showed comminuted fracture of the right inferior ramus, comminuted fracture of the right superior ramus with extension into pubic root and anterior acetabular roof. Additional fractures in right coccyx and sacral ala. 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 Labs show chronic anemia with Hgb of 9.5 and normal MCV, this could be secondary to anemia of chronic disease from RA, of note that patient does take iron supplementation secondary to deficiency. Platelets 135, Glucose 116, normal BUN/CR, normal Ca A&P Assessment and plan (1) Acetabulum fracture, right: Patient presented with right hip pain and sacral pain after falling yesterday Patient has a history of right hip replacement with prosthesis. Pelvis CT shows comminuted fracture of the right inferior ramus, comminuted fracture of the right superior ramus with extension into pubic root and anterior acetabular roof. Additional fractures in right coccyx and sacral ala. Admitting for observation Will need non-weight bearing on right leg secondary to acetabulum and pelvic fractures; consult PT Pain management with oxycodone 10mg po Q4hrs PRN for pain, patient takes oxycodone-acetaminophen po q6hr PRN at home Patient on hospice, does not have constant help around the house, working to see if able to receive rehab in a facility (2) Fracture of inferior pubic ramus: See above (3) Seropositive rheumatoid arthritis of multiple joints: Continue sulfasalazine 500mg and hydroxycholoroquine 200mg BID Patient is on hospice secondary to severe RA and terminal cancer Pain management with oxycodone po Q4hrs PRN for pain, patient takes oxycodone-acetaminophen po q6hr PRN at home (4) Anemia: Labs show chronic anemia with Hgb of 9.5 and normal MCV, this could be secondary to anemia of chronic disease from RA, but cannot r/o possible bone marrow issue due to history of cancer or iron deficiency, which the patient is current taking iron supplementation for. Plan Patient has a 3.8 x 2.7 cm bladder dome mass, present on prior scans but has increased since 07/10/2023. Refer outpatient to urology. Senna and Docusate for bowel regimen Protonix for GI PPX Fall risk Hospice care DNR/DNI Coding Level of Care Code 25205 Diagnoses Acetabulum fracture, right S32.401A Fracture of inferior pubic ramus S32.599A Seropositive rheumatoid arthritis of multiple joints M05.79 Anemia D64.9 Time Spent (min) 54 Documented by User: Chele Mancilla MD 02/22/24 14:08 Providers/Chief Complaint Admitting Physician: Chele Mancilla MD, hospitalist Chief Complaint: RT hip and Leg pain post fall History of Present Illness Peng Cooper is a 78 year old male with PMH of Rheumatoid arthritis, sjogren's, neuropathy, history of iron deficiency, recurrent falls, history of marginal zone lymphoma, and mass on bladder, presents today for right hip pain that started yesterday afternoon after falling at home. Patient reports that he lost his balance while using his walker and landed on his buttocks. Patient has decreased sensation in his feet. Patient denies LOC or hitting his head or having stroke-like symptoms or a seizure. EMS was called yesterday to attend to the patient, but patient refused to go to the hospital. He called EMS again today because he was in substantial pain in his right hip and sacral area on pain scale of 8/10. Patient denies chest pain, SOB, headache, or new weakness. It is reported by his friend, who is present during the history and physical that he falls frequently. Patient reports while we are in the room that he is on hospice, reported to be seen 1-2 times a week. He reports he wants to be treated with medicines, made comfortable, have pain control. He realizes his prognosis is poor with his comorbidities. Patient reports nobody is currently at home to be able to care for him, and his friend confirms this. Medications/Allergies Home Medications Medication Instructions Recorded Confirmed Last Taken Type ferrous sulfate 325 mg (65 mg 325 mg PO BID@0800,199906/19/19 02/22/24 02/21/24 History iron) tablet magnesium 200 mg tablet 400 mg PO DAILY@79906/19/19 02/22/24 02/23/23 History hn-4-nap-epa-fish oil-vit D3 300 1 cap PO DAILY@79906/19/19 02/22/24 02/21/24 History mg-1,000 mg-1,000 unit capsule arskjmwmravd-splieqrh-fvthvh 1 tab PO DAILY@79906/16/20 02/22/24 02/21/24 History tablet (Multivitamin 50 Plus tablet) Custom inserts or similar #1 ea 06/21/22 02/22/24 Unknown Rx sennosides 8.6 mg-docusate sodium 2 tab PO BID #14 tabs 02/03/23 02/22/24 02/23/23 Rx 50 mg tablet (Stool Softener-Laxative) peg 129-mwqayybwnbtb-wrbteyik 1 2 drp ophthalmic (eye) DAILY PRN 02/23/23 02/22/24 02/21/24 History %-0.2 %-0.2 % eye drops (Dry Eye Dry Eye(S) Relief) polyethylene glycol 3350 17 4 g PO DAILY 02/23/23 02/22/24 02/23/23 History gram/dose oral powder oxycodone-acetaminophen 10 mg-325 1 tab PO Q6H PRN Pain 06/30/23 02/22/24 02/21/24 History mg tablet sucralfate 1 gram tablet 1 g PO DAILY 06/30/23 02/22/24 02/21/24 History artificial tears(hypromellose) 0.5 1 drp eye-both Q4H #15 mL 07/04/23 02/22/24 Unknown Rx % eye drops (Isopto Tears) saliva substitute combo no.9 15 ml mucous membrane 5XD PRN Dry 07/05/23 02/22/24 Unknown Rx (Biotene Dry Mouth Oral Rinse Mouth #237 mL mouthwash) furosemide 40 mg tablet 40 mg PO DAILY 09/01/23 02/22/24 02/21/24 History folic acid 1 mg tablet 1 mg PO DAILY@0800 #90 tabs 11/23/23 02/22/24 02/21/24 Rx hydroxychloroquine 200 mg tablet 200 mg PO BID #180 tabs 11/23/23 02/22/24 02/21/24 Rx sulfasalazine 500 mg tablet 500 mg PO BID #180 tabs 11/23/23 02/22/24 02/21/24 Rx Allergies Allergy/AdvReac Type Severity Reaction Status Date / Time No Known Allergies Allergy Verified 02/22/24 08:00 PFSH Acute PFSH: Medical History Anemia Seropositive rheumatoid arthritis of multiple joints Primary Sjogren's syndrome Marginal zone lymphoma identified in 2020 and 2021, observant management Recurrent falls Generalized weakness Compression fracture Bladder mass Abdominal pain Ileus Compression fracture Hypoxia Abdominal pain Rheumatoid arthritis flare Acute kidney injury Weakness Constipation Malaise Osteoarthritis of left knee Rotator cuff syndrome of right shoulder Shock History of fall Hemorrhagic shock Acute upper GI bleeding Abrasion of knee, bilateral Acute on chronic anemia Anorexia Acute CVA (cerebrovascular accident) Rib fractures Weight loss Neuropathy History of PFTs Physical deconditioning Alcohol abuse Peripheral neuropathy Onychomycosis Ex-smoker for more than 1 year History of exposure to asbestos Thoracic outlet syndrome Osteoarthritis Immunosuppression Iron deficiency anemia History of Hodgkin's lymphoma diagnosed in 2013, treated with ABVD with good result Right knee meniscal tear Surgical History Status post surgery Bilateral chest surgery for thoracic outlet syndrome Status post colonoscopy History of revision of total replacement of right hip joint History of arthroplasty of right hip History of arthroplasty of left shoulder Family History Other Cancer Dementia Diabetes Denies family history of CAD (coronary artery disease) Clotting disorder Hyperlipidemia Psychiatric illness Chronic kidney disease (CKD) Suicide Anesthesia complication Bleeding disorder Lung disease Hypertension Stroke Social History Smoking and tobacco/nicotine status: former use of tobacco/nicotine Quit status (tobacco/nicotine): has quit using Year quit tobacco: 2010 [id number] Second hand smoke exposure: No Alcohol intake: current Alcohol intake frequency: 0-2 Drinks per Day Alcohol type: beer Substance/Drug Use: never Caregiver/support person: No Lives independently: No Household members: other Housing: [facility] Marital status: / service: No Current occupational status: retired Pets and animals: Yes Do you think of yourself as: Straight/Heterosexual Current gender identity: Male Data 02/22/24 09:09 02/22/24 09:09 Other Labs: Hip/Pelvic X-ray showed comminuted fracture of right inferior ramus Pelvis CT showed comminuted fracture of the right inferior ramus, comminuted fracture of the right superior ramus with extension into pubic root and anterior acetabular roof. Additional fractures in right coccyx and sacral ala. 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 Labs show chronic anemia with Hgb of 9.5 and normal MCV, this could be secondary to anemia of chronic disease from RA, of note that patient does take iron supplementation secondary to deficiency. Platelets 135, Glucose 116, normal BUN/CR, normal Ca Urinalysis is ordered and pending A&P Assessment and plan (1) Acetabulum fracture, right: Patient presented with right hip pain and sacral pain after falling yesterday Patient has a history of right hip replacement with prosthesis. Pelvis CT shows comminuted fracture of the right inferior ramus, comminuted fracture of the right superior ramus with extension into pubic root and anterior acetabular roof. Additional fractures in right coccyx and sacral ala. Admitting for observation, pain control, physical therapy training Will need non-weight bearing on right leg secondary to acetabulum and pelvic fractures; consult PT Pain management with oxycodone 10mg po Q4hrs PRN for pain, patient takes oxycodone-acetaminophen po q6hr PRN at home Patient on hospice at home, does not have constant help around the house, working to see if able to go to a residential facility. His goals are to not be in pain, and to have the best quality of life he can. I did discuss his allow natural status with him. For this reason, DVT prophylaxis considering his anemia and thrombocytopenia will not be given for his pelvic fracture. (2) Fracture of inferior pubic ramus: (3) Seropositive rheumatoid arthritis of multiple joints: (4) Anemia: Plan Patient has a 3.8 x 2.7 cm bladder dome mass, present on prior scans but has increased since 07/10/2023. He reports this is another reason he is on hospice. Complete workup of this is not known. Senna and Docusate for bowel regimen Protonix for GI PPX Fall risk DNR/DNI SCDs for DVT prophylaxis. No pharmacologic anticoagulation secondary to patient goals of hospice, anemia, thrombocytopenia Attestations Medical Necessity Statement*: Will need less than 2 midnight stay for evaluation and treatment of pelvic fracture in this patient is to be managed medically. Diagnoses Acetabulum fracture, right S32.401A Fracture of inferior pubic ramus S32.599A Seropositive rheumatoid arthritis of multiple joints M05.79 Anemia D64.9 Time Spent (min) 54
--- NOTE | 2024-02-22 12:56 | PC.NURSE ---
ATTEMPTED REPORT AT 1324 STAFF ON MED SURG ANSWERED THE PHONE AND STATED 'JANE JAY TAKE REPORT RIGHT NOW SHE IS IN THE MIDDLE OF SOMETHING'. CHARGE NURSE NOTIFIED, WILL ATTEMPT AGAIN @ [id number].
[2024-02-22 15:26] LABS: Bilirubin Urine Negative (Negative); Blood Urine Negative (Negative); Glucose Urine UA Negative (Normal); Ketones Urine Negative (Negative); Leukocyte Esterase Urine Negative (Negative); Nitrate Urine Negative (Negative); Protein Urine Negative (Negative); Specific Gravity, Urine 1.016 (1.005-1.030); Urine Appearance Clear (CLEAR); Urine Color Yellow (Yellow)
[2024-02-22 15:28] LABS: Add Urine Microscopic? YES; Bacteria Urine None Seen /hpf; Hyaline Casts Urine 6.61 /lpf; RBC Urine 0-2 /hpf (0-2); Squamous Epithelial Cell Urine 0-5 /hpf (0-5); WBC Urine 0-5 /hpf (0-5)
[2024-02-22] MEDS: oxyCODONE 5 mg IR Tab/Cap 10 MG PO ×2 (16:15→22:04)
[2024-02-22] MEDS: sennosides 8.6 mg Tablet 17.2 MG PO (18:03)
[2024-02-22] MEDS: docusate sodium 100 mg Capsule PO (18:03)
[2024-02-22] MEDS: hydroxychloroquine 200 mg Tablet PO (18:03)
--- NOTE | 2024-02-22 19:16 | PC.NURSE ---
Patient has large burise on Left side of back and multiple skin tears dressed by client care consultant from home.
[2024-02-22] MEDS: artificial tears Op Soln 15 mL Btl 1 DROP EYE-BOTH (22:04)
[2024-02-23] VITALS (11 sets, daily range): BP systolic 86–122; BP diastolic 53–65; PULSE 86–97; RESP 17–22; TEMP 37.3–37.8; O2SAT 90–95
[2024-02-23] MEDS: oxyCODONE 5 mg IR Tab/Cap 10 MG PO ×4 (03:19→21:50)
--- NOTE | 2024-02-23 07:39 | XR_ITS ---
WS: [id number] XR chest 1V portable [id number] REASON FOR EXAM: elevated temp FINDINGS: The chest is essentially unchanged compared to 08/31/2023. Moderate tortuosity of the thoracic aorta. Normal heart size. There is upward tenting of the right hemidiaphragm. Coarse reticular interstitial lung opacities with multiple small lucencies indicative of the honeycom jaquan in the lower lungs seen on the previous CT of the chest. Extrapleural mass in the lateral right hemithorax. No definite acute pulmonary parenchymal or pleural abnormality. Total reversed arthroplasty of the left shoulder. Multiple surgical clips overlying both upper hemithoraces. XR/XR chest 1V portable [id number] IMPRESSION: Stable abnormal chest with chronic lung disease. No acute abnormality is identi fied.
[2024-02-23] MEDS: folic acid 1 mg Tablet PO (08:28)
[2024-02-23] MEDS: magnesium oxide 400 mg tablet PO (08:28)
[2024-02-23] MEDS: hydroxychloroquine 200 mg Tablet PO ×2 (08:28→17:28)
[2024-02-23] MEDS: pantoprazole DR 40 mg Tablet PO (08:28)
[2024-02-23] MEDS: sennosides 8.6 mg Tablet 17.2 MG PO ×2 (08:28→17:28)
[2024-02-23] MEDS: docusate sodium 100 mg Capsule PO ×2 (08:28→17:28)
[2024-02-23] MEDS: polyethylene glycol 3350 Pkt 17 gm PO (08:29)
--- NOTE | 2024-02-23 08:47 | P.PN_ITS ---
Documented by User: KYLE Maldonado STDYANA 02/23/24 09:10 Subjective 2 Subjective: Patient is doing well. He spiked low grade fevers overnight, ordered CXR to r/o possible pneumonia. Blood pressures remain soft. Patient requests pain medicine every 6 hours secondary to this being the time interval he uses for his at home pain meds. Patient denies chest pain, SOB, abdominal pain, headache, or chills. Plan for intensive care unit nurse to see patient to discuss possible placement in shelter facility. Vitals/I&O/Wt Last Vital Signs Temp 99.2 F 02/23/24 07:31 Pulse 90 02/23/24 07:31 Resp 18 02/23/24 08:28 BP 108/55 02/23/24 07:31 Pulse Ox 91 02/23/24 08:28 O2 Del Method Room Air 02/23/24 07:31 02/22/24 02/23/24 02/23/24 22:59 06:59 14:59 Intake Total 240 / 240 Output Total 400 / 400 200 / 600 Balance -160 / -160 -200 / -360 Weight last 48 hrs Weight 132 lb 6 oz Weight 127 lb 4 oz Weight 100 lb Physical Exam 2 Narrative: Frail and small elderly man Neck/C-Spine: OTHER: Supple without thyromegaly or lymphadenopathy Resp: OTHER: Bilateral breath sounds, clear to auscultation, normal chest wall expansion Cardio: OTHER: Normal rate and rhythm without murmurs, rubs, or gallops GI: OTHER: Soft, nondistended, nontender with slight bowel sounds Extremity: OTHER: No edema or cyanosis.Decreased sensation to touch in feet Slightly externally rotated right leg; bilateral dark, hyperpigmented patches on shins; Right foot abnormality, externally rotated and contractured in appearance secondary to past surgery. Data 02/22/24 09:09 02/22/24 09:09 A&P Assessment and plan (1) Acetabulum fracture, right: Patient presented with right hip pain and sacral pain after falling yesterday Patient has a history of right hip replacement with prosthesis. Admitted for observation, pain control, physical therapy training Will need non-weight bearing on right leg secondary to acetabulum and pelvic fractures; consult PT Pain management with oxycodone 10mg po Q4hrs PRN for pain, patient takes oxycodone-acetaminophen po q6hr PRN at home Patient on hospice at home, does not have constant help around the house, working to see if able to go to a shelter facility. His goals are to not be in pain, and to have the best quality of life he can. I did discuss his allow natural status with him. For this reason, DVT prophylaxis considering his anemia and thrombocytopenia will not be given for his pelvic fracture. (2) Fracture of inferior pubic ramus: See above (3) Seropositive rheumatoid arthritis of multiple joints: Continue sulfasalazine 500mg and hydroxycholoroquine 200mg BID Patient is on hospice secondary to severe RA and terminal cancer Pain management with oxycodone po Q4hrs PRN for pain, patient takes oxycodone- acetaminophen po q6hr PRN at home (4) Anemia: Labs show chronic anemia, could be secondary to anemia of chronic disease from RA, but cannot r/o possible bone marrow issue due to history of cancer or iron deficiency, which the patient is current taking iron supplementation for. Plan Patient was having low grade fevers over night, obtained a chest x-ray, has not been read by radiology, but does not appear to show obvious signs of pneumonia. 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 He reports this is another reason he is on hospice. Complete workup of this is not known. Continue Senna and Docusate for bowel regimen, Add lactulose secondary to high stool burden noted on Chest x ray Protonix for GI PPX Fall risk DNR/DNI SCDs for DVT prophylaxis. No pharmacologic anticoagulation secondary to patient goals of hospice, anemia, thrombocytopenia Coding Level of Care Code 66175 Diagnoses Acetabulum fracture, right S32.401A Fracture of inferior pubic ramus S32.599A Seropositive rheumatoid arthritis of multiple joints M05.79 Anemia D64.9 Time Spent (min) 18 Documented by User: Chele Mancilla MD 02/23/24 09:10 Subjective 2 Medications: Reviewed: Yes Data 02/22/24 09:09 02/22/24 09:09 A&P Assessment and plan (1) Acetabulum fracture, right: (2) Fracture of inferior pubic ramus: (3) Seropositive rheumatoid arthritis of multiple joints: (4) Anemia: Plan Patient was having low grade fevers over night, obtained a chest x-ray, has not been read by radiology, but does not appear to show obvious signs of pneumonia. Pleural-based masses present, unchanged. There is also some evidence of constipation. 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 Chronic constipation Continue Senna and Docusate for bowel regimen, Add lactulose secondary to high stool burden noted on Chest x ray Protonix for GI PPX Fall risk DNR/DNI SCDs for DVT prophylaxis. No pharmacologic anticoagulation secondary to patient goals of hospice, anemia, thrombocytopenia Attestations 2 Medical Necessity Statement*: Needs continued hospitalization to work with physical therapy, for balance for touch toe weightbearing only in this gentleman with acetabular and pelvic fracture. Diagnoses Acetabulum fracture, right S32.401A Fracture of inferior pubic ramus S32.599A Seropositive rheumatoid arthritis of multiple joints M05.79 Anemia D64.9 Time Spent (min) 18
[2024-02-23] MEDS: lactulose oral liq 20 gm/30 mL UDC 10 GM PO ×2 (09:34→17:28)
[2024-02-23] MEDS: artificial tears Op Soln 15 mL Btl 1 DROP EYE-BOTH (14:24)
[2024-02-24] VITALS (11 sets, daily range): BP systolic 101–121; BP diastolic 55–68; PULSE 85–100; RESP 16–25; TEMP 36.8–37.9; O2SAT 90–95
[2024-02-24] MEDS: oxyCODONE 5 mg IR Tab/Cap 10 MG PO ×4 (03:45→21:57)
[2024-02-24 08:41] LABS: Basophils # 0.1 10^3/uL (0.0-0.1); Basophils % 0.5 %; Eosinophils # 0.1 10^3/uL (0.0-0.8); Eosinophils % 0.6 %; Hematocrit 26.1 % (37-53); Lymphocytes % 9.9 %; Mean Corpuscular Hemoglobin 28.5 pg (27-33); Mean Corpuscular Volume 86.4 fl (82-101); Mean Platelet Volume 10.1 fL (7.4-10.4); Monocytes # 1.3 10^3/uL (0.2-0.9); Monocytes % 12.7 %; Neutrophils # 7.77 10^3/uL (1.8-7.7); Neutrophils % 75.7 %; Nucleated Red Blood Cells % 0 %; Platelet Count 140 10^3/cmm (157-399); Red Blood Count 3.02 10^6/uL (3.85-5.65); Red Cell Distribution Width 13.9 % (12.1-15.1); White Blood Count 10.26 10^3/uL (3.29-11.43)
[2024-02-24 09:05] LABS: Alanine Aminotransferase 33 U/L (0-41); Albumin Level 3.3 g/dL (3.5-5.2); Alkaline Phosphatase 114 U/L (40-130); Anion Gap 12.2 (5-19); Aspartate Amino Transferase 41 U/L (0-40); Blood Urea Nitrogen 14 mg/dL (8-23); Calcium 8.7 mg/dL (8.5-10.5); Carbon Dioxide 25 mmol/L (22-29); Chloride 101 mmol/L (98-107); Creatinine Clr Calc Pharmacy 63.4796; Globulin 2.7 g/dL (1.3-4.6); Glucose 93 mg/dL (65-115); Osmolality Calculated 278 mOsm/kg (285-295); Potassium 4.2 mmol/L (3.5-5.1); Sodium 134 mmol/L (136-145); Total Bilirubin 0.6 mg/dL (0.15-1.2)
[2024-02-24] MEDS: pantoprazole DR 40 mg Tablet PO (09:34)
[2024-02-24] MEDS: docusate sodium 100 mg Capsule PO ×2 (09:35→18:07)
[2024-02-24] MEDS: polyethylene glycol 3350 Pkt 17 gm PO (09:35)
[2024-02-24] MEDS: magnesium oxide 400 mg tablet PO (09:35)
[2024-02-24] MEDS: lactulose oral liq 20 gm/30 mL UDC PO ×2 (09:35→18:06)
[2024-02-24] MEDS: hydroxychloroquine 200 mg Tablet PO ×2 (09:35→18:07)
[2024-02-24] MEDS: sennosides 8.6 mg Tablet 17.2 MG PO ×2 (09:35→18:07)
[2024-02-24] MEDS: sulfaSALAzine 500 mg Tablet PO ×2 (09:35→18:07)
[2024-02-24] MEDS: folic acid 1 mg Tablet PO (09:35)
--- NOTE | 2024-02-24 11:32 | P.PN_ITS ---
Subjective 2 Subjective: No complaints. Awaiting placement for rehabilitation. Medications: Reviewed: Yes Vitals/I&O/Wt Last Vital Signs Temp 98.3 F 02/24/24 11:03 Pulse 87 02/24/24 11:03 Resp 18 02/24/24 11:03 BP 121/68 02/24/24 11:03 Pulse Ox 92 02/24/24 11:03 O2 Del Method Room Air 02/24/24 11:03 02/23/24 02/24/24 02/24/24 22:59 06:59 14:59 Intake Total 360 / 1080 480 / 480 Output Total 500 / 900 250 / 1150 Balance -140 / 180 -250 / -70 480 / 480 Weight last 48 hrs Weight 60.101 kg Weight 60.044 kg Weight 57.72 kg Physical Exam 2 Narrative: No distress Neck is supple Cardiovascular regular rate and rhythm Lungs clear Abdomen scaphoid, bowel sounds noted Extremities no cyanosis clubbing edema Data 02/24/24 08:20 02/24/24 08:20 A&P Assessment and plan (1) Acetabulum fracture, right: Patient presented with right hip pain and sacral pain after falling Patient has a history of right hip replacement with prosthesis. Admitted for observation, pain control, physical therapy training Will need non-weight bearing on right leg secondary to acetabulum and pelvic fractures; consult PT Pain management with oxycodone 10mg po Q4hrs PRN for pain, patient takes oxycodone-acetaminophen po q6hr PRN at home Patient on hospice at home, does not have constant help around the house, working to see if able to go to a custodial facility. His goals are to not be in pain, and to have the best quality of life he can. I did discuss his allow natural status with him. As he has revoked hospice, we will go ahead and initiate Lovenox for DVT prophylaxis. Could consider Eliquis 2.5 mg twice daily, with monitoring for worsening anemia if goes to nursing facility. (2) Fracture of inferior pubic ramus: See above (3) Seropositive rheumatoid arthritis of multiple joints: Continue sulfasalazine 500mg and hydroxycholoroquine 200mg BID Patient is on hospice secondary to severe RA and terminal cancer Pain management with oxycodone po Q4hrs PRN for pain, patient takes oxycodone- acetaminophen po q6hr PRN at home (4) Anemia: Labs show chronic anemia, could be secondary to anemia of chronic disease from RA, but cannot r/o possible bone marrow issue due to history of cancer or iron deficiency, which the patient is current taking iron supplementation for. No evidence of ongoing blood loss currently. CBC reviewed today, hemoglobin 8.6. Laboratory was ordered and reviewed today. Plan Patient was having low grade fevers over night, no definitive evidence of infection on evaluation of chest x-ray and urinalysis. . 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 Chronic constipation Continue Senna and Docusate for bowel regimen, Add lactulose secondary to high stool burden noted on Chest x ray. He has not had a bowel movement on current stool regimen. Protonix for GI PPX Fall risk DNR/DNI SCDs for DVT prophylaxis. Lovenox has been added. Attestations 2 Medical Necessity Statement*: Needs continued hospitalization, working with therapy, until placement at custodial facility can occur in this patient with pelvic fracture need of rehab to gain the ability to ambulate in the future. Diagnoses Acetabulum fracture, right S32.401A Fracture of inferior pubic ramus S32.599A Seropositive rheumatoid arthritis of multiple joints M05.79 Anemia D64.9 Time Spent (min) 21
[2024-02-24] MEDS: enoxaparin 40 mg/0.4 mL Syringe SUBCUT (11:52)
[2024-02-25] VITALS (10 sets, daily range): BP systolic 94–118; BP diastolic 46–68; PULSE 89–102; RESP 15–22; TEMP 37.1–37.8; O2SAT 90–96
[2024-02-25] MEDS: oxyCODONE 5 mg IR Tab/Cap 10 MG PO ×5 (03:10→21:54)
[2024-02-25] MEDS: artificial tears Op Soln 15 mL Btl 1 DROP EYE-BOTH (03:34)
[2024-02-25 04:12] LABS: Basophils % 0.4 %; Eosinophils # 0.1 10^3/uL (0.0-0.8); Eosinophils % 0.5 %; Hematocrit 25.4 % (37-53); Lymphocytes # 1.1 10^3/uL (0.8-4.8); Lymphocytes % 11.3 %; Mean Corpuscular HGB Conc 33.5 g/dL (30-55); Mean Corpuscular Volume 86.7 fl (82-101); Mean Platelet Volume 10.5 fL (7.4-10.4); Monocytes # 1.2 10^3/uL (0.2-0.9); Monocytes % 12.4 %; Neutrophils # 7.05 10^3/uL (1.8-7.7); Neutrophils % 74.9 %; Nucleated Red Blood Cells % 0 %; Platelet Count 127 10^3/cmm (157-399); Red Blood Count 2.93 10^6/uL (3.85-5.65); Red Cell Distribution Width 13.6 % (12.1-15.1); White Blood Count 9.43 10^3/uL (3.29-11.43)
[2024-02-25] MEDS: folic acid 1 mg Tablet PO (08:06)
[2024-02-25] MEDS: docusate sodium 100 mg Capsule PO ×2 (08:06→17:40)
[2024-02-25] MEDS: polyethylene glycol 3350 Pkt 17 gm PO (08:07)
[2024-02-25] MEDS: magnesium oxide 400 mg tablet PO (08:07)
[2024-02-25] MEDS: hydroxychloroquine 200 mg Tablet PO ×2 (08:07→17:36)
[2024-02-25] MEDS: sennosides 8.6 mg Tablet 17.2 MG PO ×2 (08:07→17:36)
[2024-02-25] MEDS: pantoprazole DR 40 mg Tablet PO (08:07)
[2024-02-25] MEDS: lactulose oral liq 20 gm/30 mL UDC PO ×2 (08:07→17:36)
[2024-02-25] MEDS: sulfaSALAzine 500 mg Tablet PO ×2 (08:07→17:36)
[2024-02-25] MEDS: enoxaparin 40 mg/0.4 mL Syringe SUBCUT (12:21)
--- NOTE | 2024-02-25 14:36 | P.PN_ITS ---
Subjective 2 Subjective: Seen this morning. Patient states he is in a lot of pain and would like his pain medication at this time. He also states that he has been given the same food as breakfast however breakfast tray was different and lunch tray is different. Vitals/I&O/Wt Last Vital Signs Temp 100.0 F H 02/25/24 12:00 Pulse 102 H 02/25/24 12:00 Resp 17 02/25/24 12:21 BP 108/54 02/25/24 12:00 Pulse Ox 91 02/25/24 12:00 O2 Del Method Room Air 02/25/24 07:16 02/24/24 02/25/24 02/25/24 22:59 06:59 14:59 Intake Total 480 / 960 600 / 600 Output Total 300 / 300 250 / 550 Balance 180 / 660 -250 / 410 600 / 600 Weight last 48 hrs Weight 60.464 kg Weight 60.101 kg Physical Exam 2 Narrative: No distress Neck is supple Cardiovascular regular rate and rhythm Lungs clear Abdomen scaphoid, bowel sounds noted Extremities no cyanosis clubbing edema Data 02/25/24 03:17 02/24/24 08:20 A&P Assessment and plan (1) Acetabulum fracture, right: Patient presented with right hip pain and sacral pain after falling Patient has a history of right hip replacement with prosthesis. Admitted for observation, pain control, physical therapy training Will need non-weight bearing on right leg secondary to acetabulum and pelvic fractures; consult PT Pain management with oxycodone 10mg po Q4hrs PRN for pain, patient takes oxycodone-acetaminophen po q6hr PRN at home Patient on hospice at home, does not have constant help around the house, working to see if able to go to a jail facility. His goals are to not be in pain, and to have the best quality of life he can. I did discuss his allow natural status with him. As he has revoked hospice, we will go ahead and initiate Lovenox for DVT prophylaxis. Could consider Eliquis 2.5 mg twice daily, with monitoring for worsening anemia if goes to nursing facility. (2) Fracture of inferior pubic ramus: See above (3) Seropositive rheumatoid arthritis of multiple joints: Continue sulfasalazine 500mg and hydroxycholoroquine 200mg BID Patient is on hospice secondary to severe RA and terminal cancer Pain management with oxycodone po Q4hrs PRN for pain, patient takes oxycodone- acetaminophen po q6hr PRN at home (4) Anemia: Labs show chronic anemia, could be secondary to anemia of chronic disease from RA, but cannot r/o possible bone marrow issue due to history of cancer or iron deficiency, which the patient is current taking iron supplementation for. No evidence of ongoing blood loss currently. CBC reviewed today, hemoglobin 8.6. Laboratory was ordered and reviewed today. Plan Patient was having low grade fevers over night, no definitive evidence of infection on evaluation of chest x-ray and urinalysis. . 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 Chronic constipation Continue Senna and Docusate for bowel regimen, Add lactulose secondary to high stool burden noted on Chest x ray. He has not had a bowel movement on current stool regimen. Protonix for GI PPX Fall risk DNR/DNI SCDs for DVT prophylaxis. Lovenox has been added. 02/25/2024 -Patient [facility] at this time. Hemoglobin is stable 8.5. Patient awaiting insurance authorization. ? Continue to manage pain. Allow natural . Attestations 2 Medical Necessity Statement*: Awaiting pen[facility]entiary placement. Diagnoses Acetabulum fracture, right S32.401A Fracture of inferior pubic ramus S32.599A Seropositive rheumatoid arthritis of multiple joints M05.79 Anemia D64.9
[2024-02-26] VITALS (11 sets, daily range): BP systolic 94–128; BP diastolic 50–61; PULSE 94–124; RESP 16–27; TEMP 37.1–39.3; O2SAT 90–95
[2024-02-26] MEDS: oxyCODONE 5 mg IR Tab/Cap 10 MG PO ×4 (02:47→17:31)
[2024-02-26 05:21] LABS: Basophils % 0.2 %; Eosinophils % 0.1 %; Hematocrit 26.7 % (37-53); Lymphocytes # 0.5 10^3/uL (0.8-4.8); Lymphocytes % 3.8 %; Mean Corpuscular HGB Conc 32.2 g/dL (30-55); Mean Corpuscular Hemoglobin 28.3 pg (27-33); Mean Corpuscular Volume 87.8 fl (82-101); Monocytes # 1.1 10^3/uL (0.2-0.9); Monocytes % 8.1 %; Neutrophils # 12.24 10^3/uL (1.8-7.7); Neutrophils % 87.2 %; Nucleated Red Blood Cells % 0 %; Platelet Count 150 10^3/cmm (157-399); Red Blood Count 3.04 10^6/uL (3.85-5.65); Red Cell Distribution Width 13.6 % (12.1-15.1); White Blood Count 14.03 10^3/uL (3.29-11.43)
[2024-02-26 05:38] LABS: Anion Gap 14.5 (5-19); Blood Urea Nitrogen 15 mg/dL (8-23); Calcium 8.5 mg/dL (8.5-10.5); Carbon Dioxide 24 mmol/L (22-29); Chloride 100 mmol/L (98-107); Creatinine Clr Calc Pharmacy 55.8215; Glucose 122 mg/dL (65-115); Osmolality Calculated 280 mOsm/kg (285-295); Potassium 4.5 mmol/L (3.5-5.1); Sodium 134 mmol/L (136-145)
[2024-02-26] MEDS: sulfaSALAzine 500 mg Tablet PO ×2 (07:53→17:30)
[2024-02-26] MEDS: polyethylene glycol 3350 Pkt 17 gm PO (07:53)
[2024-02-26] MEDS: hydroxychloroquine 200 mg Tablet PO ×2 (07:53→17:30)
[2024-02-26] MEDS: magnesium oxide 400 mg tablet PO (07:53)
[2024-02-26] MEDS: lactulose oral liq 20 gm/30 mL UDC PO ×2 (07:53→17:31)
[2024-02-26] MEDS: pantoprazole DR 40 mg Tablet PO (07:53)
[2024-02-26] MEDS: folic acid 1 mg Tablet PO (07:54)
[2024-02-26] MEDS: docusate sodium 100 mg Capsule PO ×2 (07:54→17:30)
[2024-02-26] MEDS: sennosides 8.6 mg Tablet 17.2 MG PO ×2 (07:54→17:30)
[2024-02-26] MEDS: enoxaparin 40 mg/0.4 mL Syringe SUBCUT (11:58)
--- NOTE | 2024-02-26 12:55 | P.PN_ITS ---
Subjective 2 Subjective: Patient's white count has gone up to 14,000 and also had 2 episodes of 100.2 fever overnight and again this morning 100.8. Did asked nursing staff if patient aspirated but there is no record of that. Unsure what the source of this might be however I do have suspicion patient may have aspirated. Upon seeing patient in the room he was coughing with lunch tray in front of him however he did not start eating yet. He states he has had a temperature and is having his chronic pain. Vitals/I&O/Wt Last Vital Signs Temp 100.8 F H 02/26/24 12:00 Pulse 106 H 02/26/24 12:00 Resp 20 H 02/26/24 12:00 BP 94/61 02/26/24 12:00 Pulse Ox 90 02/26/24 12:00 O2 Del Method Nasal Cannula 02/26/24 12:00 02/25/24 02/26/24 02/26/24 22:59 06:59 14:59 Intake Total 240 / 840 600 / 600 Balance 240 / 840 600 / 600 Weight last 48 hrs Weight 58.468 kg Weight 60.464 kg Physical Exam 2 Narrative: No distress Neck is supple Cardiovascular regular rate and rhythm Lungs clear clear to auscultation bilaterally no gross rhonchi. Abdomen scaphoid, bowel sounds noted Extremities no cyanosis clubbing edema Data 02/26/24 04:54 02/26/24 04:54 A&P Assessment and plan (1) Acetabulum fracture, right: Patient presented with right hip pain and sacral pain after falling Patient has a history of right hip replacement with prosthesis. Admitted for observation, pain control, physical therapy training Will need non-weight bearing on right leg secondary to acetabulum and pelvic fractures; consult PT Pain management with oxycodone 10mg po Q4hrs PRN for pain, patient takes oxycodone-acetaminophen po q6hr PRN at home Patient on hospice at home, does not have constant help around the house, working to see if able to go to a long-term facility. His goals are to not be in pain, and to have the best quality of life he can. I did discuss his allow natural status with him. As he has revoked hospice, we will go ahead and initiate Lovenox for DVT prophylaxis. Could consider Eliquis 2.5 mg twice daily, with monitoring for worsening anemia if goes to nursing facility. (2) Fracture of inferior pubic ramus: See above (3) Seropositive rheumatoid arthritis of multiple joints: Continue sulfasalazine 500mg and hydroxycholoroquine 200mg BID Patient is on hospice secondary to severe RA and terminal cancer Pain management with oxycodone po Q4hrs PRN for pain, patient takes oxycodone- acetaminophen po q6hr PRN at home (4) Anemia: Labs show chronic anemia, could be secondary to anemia of chronic disease from RA, but cannot r/o possible bone marrow issue due to history of cancer or iron deficiency, which the patient is current taking iron supplementation for. No evidence of ongoing blood loss currently. CBC reviewed today, hemoglobin 8.6. Laboratory was ordered and reviewed today. Plan Patient was having low grade fevers over night, no definitive evidence of infection on evaluation of chest x-ray and urinalysis. . 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 Chronic constipation Continue Senna and Docusate for bowel regimen, Add lactulose secondary to high stool burden noted on Chest x ray. He has not had a bowel movement on current stool regimen. Protonix for GI PPX Fall risk DNR/DNI SCDs for DVT prophylaxis. Lovenox has been added. 02/26/2024 -Patient awaiting snf placement at this time. Hemoglobin is stable 8.5. Patient awaiting insurance authorization. ? Continue to manage pain. Allow natural . He continues to have low-grade fevers. They could be secondary to malignancy versus true infection at this time. Suspicion patient may have aspirated but no confirmation of that at this time. White count up to 14,000. I will empirically treat with IV Unasyn at this time. Will check chest x-ray today. Attestations 2 Medical Necessity Statement*: Fever, leukocytosis, snf placement. Possible aspiration Diagnoses Acetabulum fracture, right S32.401A Fracture of inferior pubic ramus S32.599A Seropositive rheumatoid arthritis of multiple joints M05.79 Anemia D64.9
[2024-02-26] MEDS: ampicillin-sulbactam 1.5 GM in sodium chloride 0.9% (plus) 50 ML IV ×2 (13:33→18:33)
[2024-02-26] MEDS: acetaminophen 325 mg Tablet 650 MG PO (14:07)
[2024-02-26 15:46] LABS: Procalcitonin 0.61 ng/mL (0-0.5)
[2024-02-27] VITALS (12 sets, daily range): BP systolic 93–118; BP diastolic 57–73; PULSE 81–111; RESP 16–25; TEMP 36.4–37.5; O2SAT 90–97
[2024-02-27] MEDS: ampicillin-sulbactam 1.5 GM in sodium chloride 0.9% (plus) 50 ML IV ×4 (01:04→18:52)
[2024-02-27] MEDS: oxyCODONE 5 mg IR Tab/Cap 10 MG PO ×5 (01:29→23:42)
--- NOTE | 2024-02-27 06:42 | P.PN_ITS ---
Subjective 2 Subjective: Patient is waiting for insurance approval for placement at a [place] [facility] facility. Patient is still reporting pain in shoulders, leg, and hands frequently despite oxycodone. Patient had numerous low grade fevers yesterday, possibly secondary to aspiration since he frequently chokes on food or could be related to his malignancy. Patient was started on IV Unasyn by doctor on-call over the weekend, will need a CXR. Patient has felt warm and has some SOB and is currently on 3L via nasal cannula; denies chest pain, abdominal pain, headache. Vitals/I&O/Wt Last Vital Signs Temp 98.0 F 02/27/24 04:00 Pulse 95 02/27/24 04:00 Resp 25 H 02/27/24 04:00 BP 94/57 02/27/24 04:00 Pulse Ox 92 02/27/24 04:00 O2 Del Method Nasal Cannula 02/27/24 04:00 02/26/24 02/26/24 02/27/24 14:59 22:59 06:59 Intake Total 650 / 650 350 / 1000 530 / 1530 Balance 650 / 650 350 / 1000 530 / 1530 Weight last 48 hrs Weight 128 lb 8 oz Weight 128 lb 14.4 oz Physical Exam 2 Const: OTHER: Frail and small elderly male Neck/C-Spine: OTHER: Supple. Resp: OTHER: Bilateral breath sounds, clear to auscultation, normal chest wall expansion Cardio: OTHER: Normal rate an rhythm without gallops, murmurs, or rubs Extremity: OTHER: No cyanosis or edema Data 02/26/24 04:54 02/26/24 04:54 Micro: Microbiology 02/26/24 15:13 Blood Culture - Preliminary Blood SPECIMEN COLLECTED 02/26/24 15:12 Blood Culture - Preliminary Blood SPECIMEN COLLECTED A&P Assessment and plan (1) Acetabulum fracture, right: Patient presented with right hip pain and sacral pain after falling on 02/22/24 Patient has a history of right hip replacement with prosthesis. Admitted for observation, pain control, physical therapy training Patient is non-weight bearing on right leg secondary to acetabulum and pelvic fractures; consulting PT Pain management with oxycodone 10mg po Q4hrs PRN for pain, patient takes oxycodone-acetaminophen po q6hr PRN at home Patient was revoked hospice and is waiting for placement to a [place] [facility] facility Is on Lovenox for DVT prophylaxis. Could consider Eliquis 2.5 mg twice daily, with monitoring for worsening anemia if goes to nursing facility. (2) Fracture of inferior pubic ramus: (3) Seropositive rheumatoid arthritis of multiple joints: (4) Anemia: Plan (2) Fracture of inferior pubic ramus: See above (3) Seropositive rheumatoid arthritis of multiple joints: Continue sulfasalazine 500mg and hydroxycholoroquine 200mg BID Patient is on hospice secondary to severe RA and terminal cancer Pain management with oxycodone po Q4hrs PRN for pain, patient takes oxycodone- acetaminophen po q6hr PRN at home (4) Anemia: Labs show chronic anemia, could be secondary to anemia of chronic disease from RA, but cannot r/o possible bone marrow issue due to history of cancer or iron deficiency, which the patient is current taking iron supplementation for. No evidence of ongoing blood loss currently. CBC reviewed today, hemoglobin 8.6. Laboratory was ordered and reviewed today. Plan Patient was having low grade fevers over night, no definitive evidence of infection on evaluation of chest x-ray and urinalysis. . 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 Chronic constipation Continue Senna and Docusate for bowel regimen, Add lactulose secondary to high stool burden noted on Chest x ray. He has not had a bowel movement on current stool regimen. Protonix for GI PPX Fall risk DNR/DNI SCDs for DVT prophylaxis. Lovenox has been added. Coding Level of Care Code Acute Code for [facility] Fwd Diagnoses Acetabulum fracture, right S32.401A Fracture of inferior pubic ramus S32.599A Seropositive rheumatoid arthritis of multiple joints M05.79 Anemia D64.9
[2024-02-27 07:47] LABS: Basophils # 0.1 10^3/uL (0.0-0.1); Basophils % 0.4 %; Eosinophils # 0.1 10^3/uL (0.0-0.8); Eosinophils % 0.4 %; Lymphocytes # 0.6 10^3/uL (0.8-4.8); Lymphocytes % 4.6 %; Mean Corpuscular HGB Conc 32.4 g/dL (30-55); Mean Corpuscular Hemoglobin 28.8 pg (27-33); Mean Platelet Volume 10.1 fL (7.4-10.4); Monocytes # 0.8 10^3/uL (0.2-0.9); Monocytes % 6.9 %; Neutrophils # 10.49 10^3/uL (1.8-7.7); Neutrophils % 87.1 %; Nucleated Red Blood Cells % 0 %; Platelet Count 157 10^3/cmm (157-399); Red Blood Count 2.81 10^6/uL (3.85-5.65); Red Cell Distribution Width 13.6 % (12.1-15.1); White Blood Count 12.04 10^3/uL (3.29-11.43)
[2024-02-27 08:05] LABS: Blood Urea Nitrogen 24 mg/dL (8-23); Calcium 8.6 mg/dL (8.5-10.5); Carbon Dioxide 24 mmol/L (22-29); Chloride 99 mmol/L (98-107); Glucose 85 mg/dL (65-115); Osmolality Calculated 277 mOsm/kg (285-295); Sodium 132 mmol/L (136-145)
[2024-02-27 08:06] LABS: Anion Gap 13.6 (5-19); Potassium 4.6 mmol/L (3.5-5.1)
[2024-02-27] MEDS: sulfaSALAzine 500 mg Tablet PO ×2 (08:19→18:52)
[2024-02-27] MEDS: magnesium oxide 400 mg tablet PO (08:19)
[2024-02-27] MEDS: hydroxychloroquine 200 mg Tablet PO ×2 (08:19→18:52)
[2024-02-27] MEDS: docusate sodium 100 mg Capsule PO ×2 (08:19→18:52)
[2024-02-27] MEDS: pantoprazole DR 40 mg Tablet PO (08:19)
[2024-02-27] MEDS: polyethylene glycol 3350 Pkt 17 gm PO (08:19)
[2024-02-27] MEDS: folic acid 1 mg Tablet PO (08:20)
[2024-02-27] MEDS: lactulose oral liq 20 gm/30 mL UDC PO ×2 (08:20→18:52)
[2024-02-27] MEDS: sennosides 8.6 mg Tablet 17.2 MG PO ×2 (08:20→18:52)
[2024-02-27] MEDS: enoxaparin 40 mg/0.4 mL Syringe SUBCUT (12:45)
--- NOTE | 2024-02-27 13:28 | P.PN_ITS ---
Subjective 2 Subjective: Seen today. Afebrile overnight white count 12,000. Procalcitonin 0.61. States he feels better however has some pain. Patient is awaiting insurance authorization Vitals/I&O/Wt Last Vital Signs Temp 99.5 F 02/27/24 11:57 Pulse 101 H 02/27/24 11:57 Resp 17 02/27/24 12:45 BP 111/60 02/27/24 11:57 Pulse Ox 97 02/27/24 11:57 O2 Del Method Nasal Cannula 02/27/24 11:57 O2 Flow Rate 3 02/27/24 10:16 02/26/24 02/27/24 02/27/24 22:59 06:59 14:59 Intake Total 350 / 1000 530 / 1530 460 / 460 Balance 350 / 1000 530 / 1530 460 / 460 Weight last 48 hrs Weight 58.287 kg Weight 58.468 kg Physical Exam 2 Narrative: No distress Neck is supple Cardiovascular regular rate and rhythm Lungs clear clear to auscultation bilaterally no gross rhonchi. Abdomen scaphoid, bowel sounds noted Extremities no cyanosis clubbing edema Data 02/27/24 06:31 02/27/24 06:31 Micro: Microbiology 02/26/24 15:13 Blood Culture - Preliminary Blood SPECIMEN COLLECTED 02/26/24 15:12 Blood Culture - Preliminary Blood SPECIMEN COLLECTED A&P Assessment and plan (1) Acetabulum fracture, right: Patient presented with right hip pain and sacral pain after falling Patient has a history of right hip replacement with prosthesis. Admitted for observation, pain control, physical therapy training Will need non-weight bearing on right leg secondary to acetabulum and pelvic fractures; consult PT Pain management with oxycodone 10mg po Q4hrs PRN for pain, patient takes oxycodone-acetaminophen po q6hr PRN at home Patient on hospice at home, does not have constant help around the house, working to see if able to go to a halfway facility. His goals are to not be in pain, and to have the best quality of life he can. I did discuss his allow natural status with him. As he has revoked hospice, we will go ahead and initiate Lovenox for DVT prophylaxis. Could consider Eliquis 2.5 mg twice daily, with monitoring for worsening anemia if goes to nursing facility. (2) Fracture of inferior pubic ramus: See above (3) Seropositive rheumatoid arthritis of multiple joints: Continue sulfasalazine 500mg and hydroxycholoroquine 200mg BID Patient is on hospice secondary to severe RA and terminal cancer Pain management with oxycodone po Q4hrs PRN for pain, patient takes oxycodone- acetaminophen po q6hr PRN at home (4) Anemia: Labs show chronic anemia, could be secondary to anemia of chronic disease from RA, but cannot r/o possible bone marrow issue due to history of cancer or iron deficiency, which the patient is current taking iron supplementation for. No evidence of ongoing blood loss currently. CBC reviewed today, hemoglobin 8.6. Laboratory was ordered and reviewed today. Plan Patient was having low grade fevers over night, no definitive evidence of infection on evaluation of chest x-ray and urinalysis. . 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 Chronic constipation Continue Senna and Docusate for bowel regimen, Add lactulose secondary to high stool burden noted on Chest x ray. He has not had a bowel movement on current stool regimen. Protonix for GI PPX Fall risk DNR/DNI SCDs for DVT prophylaxis. Lovenox has been added. 02/27/2024 -Patient awaiting assisted placement at this time. Hemoglobin is stable 8.5. Patient awaiting insurance authorization. ? Continue to manage pain. Allow natural . He continues to have low-grade fevers. They could be secondary to malignancy versus true infection at this time. Suspicion patient may have aspirated but no confirmation of that at this time. White count is improved to 12,000. Continue IV Unasyn. Switch to oral Augmentin at discharge. Will treat for total 7 days. Attestations 2 Medical Necessity Statement*: Awaiting assisted placement awaiting insurance authorization. Diagnoses Acetabulum fracture, right S32.401A Fracture of inferior pubic ramus S32.599A Seropositive rheumatoid arthritis of multiple joints M05.79 Anemia D64.9
[2024-02-27] MEDS: artificial tears Op Soln 15 mL Btl 1 DROP EYE-BOTH (23:42)
[2024-02-28] VITALS (10 sets, daily range): BP systolic 105–122; BP diastolic 57–71; PULSE 88–100; RESP 16–20; TEMP 36.8–37.3; O2SAT 90–96
[2024-02-28] MEDS: ampicillin-sulbactam 1.5 GM in sodium chloride 0.9% (plus) 50 ML IV ×4 (01:21→19:12)
[2024-02-28] MEDS: oxyCODONE 5 mg IR Tab/Cap 10 MG PO ×3 (06:19→15:54)
[2024-02-28] MEDS: folic acid 1 mg Tablet PO (08:12)
[2024-02-28] MEDS: lactulose oral liq 20 gm/30 mL UDC PO ×2 (08:12→17:18)
[2024-02-28] MEDS: magnesium oxide 400 mg tablet PO (08:12)
[2024-02-28] MEDS: sennosides 8.6 mg Tablet 17.2 MG PO ×2 (08:12→17:19)
[2024-02-28] MEDS: docusate sodium 100 mg Capsule PO ×2 (08:12→17:19)
[2024-02-28] MEDS: pantoprazole DR 40 mg Tablet PO (08:12)
[2024-02-28] MEDS: sulfaSALAzine 500 mg Tablet PO ×2 (08:12→17:20)
[2024-02-28] MEDS: hydroxychloroquine 200 mg Tablet PO ×2 (08:12→17:19)
[2024-02-28] MEDS: polyethylene glycol 3350 Pkt 17 gm PO (08:14)
[2024-02-28] MEDS: enoxaparin 40 mg/0.4 mL Syringe SUBCUT (10:50)
--- NOTE | 2024-02-28 12:31 | P.PN_ITS ---
Subjective 2 Subjective: Seen today. No acute events overnight. Patient has been afebrile in last 24 hours. Vitals/I&O/Wt Last Vital Signs Temp 98.2 F 02/28/24 12:00 Pulse 95 02/28/24 12:00 Resp 19 H 02/28/24 12:00 BP 117/61 02/28/24 12:00 Pulse Ox 90 02/28/24 12:00 O2 Del Method Nasal Cannula 02/28/24 12:00 O2 Flow Rate 3 02/27/24 20:00 02/27/24 02/28/24 02/28/24 22:59 06:59 14:59 Intake Total 290 / 1110 100 / 1210 360 / 360 Balance 290 / 1110 100 / 1210 360 / 360 Weight last 48 hrs Weight 60.01 kg Weight 58.287 kg Physical Exam 2 Narrative: No distress Neck is supple Cardiovascular regular rate and rhythm Lungs clear clear to auscultation bilaterally no gross rhonchi. Abdomen scaphoid, bowel sounds noted Extremities no cyanosis clubbing edema Data 02/27/24 06:31 02/27/24 06:31 Micro: Microbiology 02/28/24 11:15 Occult Blood (FIT) - Final Stool Routine Collection 02/26/24 15:13 Blood Culture - Preliminary Blood NEGATIVE TO DATE 02/26/24 15:12 Blood Culture - Preliminary Blood NEGATIVE TO DATE A&P Assessment and plan (1) Acetabulum fracture, right: Patient presented with right hip pain and sacral pain after falling Patient has a history of right hip replacement with prosthesis. Admitted for observation, pain control, physical therapy training Will need non-weight bearing on right leg secondary to acetabulum and pelvic fractures; consult PT Pain management with oxycodone 10mg po Q4hrs PRN for pain, patient takes oxycodone-acetaminophen po q6hr PRN at home Patient on hospice at home, does not have constant help around the house, working to see if able to go to a retirement facility. His goals are to not be in pain, and to have the best quality of life he can. I did discuss his allow natural status with him. As he has revoked hospice, we will go ahead and initiate Lovenox for DVT prophylaxis. Could consider Eliquis 2.5 mg twice daily, with monitoring for worsening anemia if goes to nursing facility. (2) Fracture of inferior pubic ramus: See above (3) Seropositive rheumatoid arthritis of multiple joints: Continue sulfasalazine 500mg and hydroxycholoroquine 200mg BID Patient is on hospice secondary to severe RA and terminal cancer Pain management with oxycodone po Q4hrs PRN for pain, patient takes oxycodone- acetaminophen po q6hr PRN at home (4) Anemia: Labs show chronic anemia, could be secondary to anemia of chronic disease from RA, but cannot r/o possible bone marrow issue due to history of cancer or iron deficiency, which the patient is current taking iron supplementation for. No evidence of ongoing blood loss currently. CBC reviewed today, hemoglobin 8.6. Laboratory was ordered and reviewed today. Plan Patient was having low grade fevers over night, no definitive evidence of infection on evaluation of chest x-ray and urinalysis. . 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 Chronic constipation Continue Senna and Docusate for bowel regimen, Add lactulose secondary to high stool burden noted on Chest x ray. He has not had a bowel movement on current stool regimen. Protonix for GI PPX Fall risk DNR/DNI SCDs for DVT prophylaxis. Lovenox has been added. 02/28/2024 -Patient awaiting retirement placement at this time. Hemoglobin is stable 8.5. Patient awaiting insurance authorization. ? Continue to manage pain. Allow natural . He continues to have low-grade fevers. They could be secondary to malignancy versus true infection at this time. Suspicion patient may have aspirated but no confirmation of that at this time. White count is improved to 12,000. Continue IV Unasyn. Switch to oral Augmentin at discharge. Will treat for total 7 days. Patient has been afebrile last 24 hours. Fevers have resolved. Patient is ready for discharge and is awaiting insurance authorization. Attestations 2 Medical Necessity Statement*: Awaiting retirement placement awaiting insurance authorization. Diagnoses Acetabulum fracture, right S32.401A Fracture of inferior pubic ramus S32.599A Seropositive rheumatoid arthritis of multiple joints M05.79 Anemia D64.9
[2024-02-29] VITALS (61 sets, daily range): BP systolic 64–135; BP diastolic 36–86; PULSE 66–121; RESP 13–35; TEMP 37–37.4; O2SAT 74–100
[2024-02-29] MEDS: sodium chloride 0.9% 500 ML 999 ML IV ×2 (00:51→04:50)
[2024-02-29] MEDS: ampicillin-sulbactam 1.5 GM in sodium chloride 0.9% (plus) 50 ML IV (00:52)
[2024-02-29] MEDS: midodrine 5 mg TABLET 10 MG PO ×4 (01:15→21:38)
[2024-02-29] MEDS: sodium chloride 0.9% 250 ML 999 ML IV (02:22)
[2024-02-29] MEDS: norepinephrine 4 MG/250 ML BAG 7.5 MG IV (02:45)
--- NOTE | 2024-02-29 02:52 | PC.NURSE ---
TRANSFER NOTE PT TRANSFERRED TO ICU 9, PT CARE NURSE AT BEDSIDE WITH OTHER ICU STAFF AND RT AT TIME OF TRANSFER. PT DAUGHTER DELGADO DECKER CONTACTED VIA PHONE AND PROVIDED AN UPDATE. ALL QUESTIONS WERE ANSWERED FROM PTS DAUGHTER AT THIS TIME.
--- NOTE | 2024-02-29 03:08 | PC.NURSE ---
Arrival on unit Patient arrived to ICU from [facility] at 02:35. Arrived on 6 L supplemental O2 via oxy-mask. Patient placed on telemetry and supplemental O2.
[2024-02-29 03:50] LABS: ABG PCO2 42.6 mmHg (35-45); Alveolar-Arterial Oxygen Gradi 6.4 mmHg (5-10); Arterial Blood Gas Hematocrit 26.5 % (42-52); Base Excess ABG 1.1 mmol/L (-2.0-2.0); Blood Gas Allen Test Pos; Blood Gas Sample Site Brachial, right; Blood Gas Sample Type Arterial; Carboxyhemoglobin 1.5 %THgb (0.4-20.1); HCO3 ABG 26.1 mmol/L (22-26); HGB O2 Sat 82.3 % (95-100); Ionized Calcium Level - ABG 1.3 mmol/L (1.1-1.4); Methemoglobin 1.5 % (0.4-1.5); Oxygen Device OXY MASK; Oxygen Saturation ABG 84.8; PO2 ABG 50.2 mmHg (80.0-100.0); Potassium Level - ABG 3.4 mmol/L (3.5-5.0); Total Hemoglobin 8.7 g/dL (14-18)
--- NOTE | 2024-02-29 03:55 | PC.NURSE ---
Physician notification Called Dr Corado to notify her of patient's sustained low O2 sats between 87-89 despite receiving 12 L via oxy-mask. Orders received for an ABG and heated high-flow, per RT recommendation.
--- NOTE | 2024-02-29 04:18 | XRR_ITS ---
PROCEDURE INFORMATION: Exam: XR Chest Exam date and time: 02/29/2024 4:41 AM Age: 78 years old Clinical indication: Dyspnea and shortness of breath; Additional info: Pneumonia TECHNIQUE: Imaging protocol: Radiologic exam of the chest. Views: 1 view. COMPARISON: CR XR chest 1V portable [id number] 02/23/2024 8:06 AM FINDINGS: Lungs: Diffuse [id number]-[id number]-jscr-right predominantly central airspace opacities. Left retrocardiac consolidation given air bronchograms. Pleural spaces: Unremarkable. No pleural effusion. No pneumothorax. Heart/Mediastinum: Cardiomegaly. Vasculature: Calcified atherosclerotic disease of the aortic arch. Bones/joints: Left shoulder postsurgical change. Soft tissues: Chest wall postsurgical change. Gastrointestinal tract: Similar-appearing air dilated loops of bowel in the upper abdomen. Other findings: Stable right pleural-based mass. Likely small parapneumonic effusions bilaterally. XR/XR chest 1V portable [id number] IMPRESSION: Multifocal pneumonia with likely small bilateral parapneumonic effusions bilaterally. Alternatively imaging may represent pulmonary edema/CHF, correlate clinically.
--- NOTE | 2024-02-29 04:30 | PC.RESP ---
RT CALLED TO [facility] TO EVALUATE PATIENT SPO2 LOW, PATIENT WAS PLACED ON 6LPM OXYMASK AND SPO2 INCREASED TO LOW 90'S. PATIENT TRANSFERRED TO ICU FOR LOW BP AND HIS OXYGEN NEED INCREASED HE WAS PLACED ON 15LPM NRB RT ARRIVED SHORTLY AFTER A FOREHEAD POX PROBE WAS PLACED ON PATIENT AND HE WAS PLACED ON A 12LPM OXYMASK. PATIENT CONTINUED TO HAVE TROUBLE MAINTAINING SPO2 ABOVE 88%. RT WAS CALLED ASK THE NURSE TO INCREASED LITER FLOW BUT THE PATIENT STILL WAS UNABLE TO MAINTAIN. NURSING CALLED DOCTOR ORDER WAS GIVEN FOR ABG AND HEATED HIGH FLOW. PATIENT PLACED ON HEATED HIGHFLOW 50 LITERS 70% AND SPO2 INCREASED TO LOW TO MID 90'S, IF PATIENT IS UNABLE TO MAINTAIN PATIENT STATED HE IS WILLING TO TRY BIPAP AT THAT POINT. RT ASK NURSE TO CALL IF PATIENT IN UNABLE TO MAINTAIN. RT TO [facility] MONITOR PATIENT STATUS.
--- NOTE | 2024-02-29 04:39 | PM.CCNAC ---
Critical Care Event Note The high probability of a clinically significant, sudden or life threatening deterioration of the patient's [] system(s) required my full and direct attention, intervention and personal management. The critical care time is as shown. This time is in addition to time spent performing any reported procedures but includes the following: [x] Data and vital sign review and interpretation [x] Patient assessment, examination and intervention [x] Documentation [x] Medication orders and management Critical Care Time Code activated: No Critical Care Time (min): 60 Additional information about critical care time: Chart reviewed. 77 year old male with a history of stage II classical Hodgkin's lymphoma, diagnosed on December 05, 2013, at that time he underwent treatment with ABVD. 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 Other history is notable for that of rheumatoid arthritis, currently on hydroxychloroquine and sulfasalazine, peripheral neuropathy, peripheral artery disease. He additionally has a h/o GI bleed in 02/2023, EGD found him to have multiple superficial esophageal ulcers in the lower esophagus. 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 Patient has had recurrent readmissions here in the hospital related to a variety of different falls and fractures. Most recently he is admitted here since February 22, 2024 after sustaining a fall resulting in pelvic fractures which is currently on conservative management. It appears patient has had hospice services with [facility] recently, however it is unclear to me at this time if these services were continuing or not prior to his current admission. Patient is currently admitted here for pain control, physical therapy since sustaining a fall and pelvic fractures. His course has been complicated by fever up to 102.8 Fahrenheit on February 26, 2024. He has had intermittent fever since February 23, 2024. He was diagnosed with pneumonia and has been on treatment with IV Unasyn. Patient had acute deterioration during course of the night. He was moved to the intensive care unit. His blood pressure dropped to 68/40 at around 1 AM while on the floor. He received a 500 cc fluid bolus with no response his oxygen requirement went up to 12 L/min via oxi mask and has been climbing necessitating placement on heated high flow since arrival in the ICU. ABG shows evidence of hypoxic respiratory failure with pO2 of 50.2 on 15 L/min oxy mask. He was started on Levophed which is currently on 12 mics at the time of writing this note. Patient is alert and awake, significantly tachypneic with a respiratory rate of 30/min. He appears to be clinically dehydrated with dry parched lips and dry skin. No pitting edema noted. Coarse crackles to auscultation bilaterally, suspect worsening infiltrates. Stat chest x-ray ordered Cheetah monitoring was performed which showed an SVI of 45. Additional 1 L fluid bolus has been ordered Stat labs including CBC, CMP, lactate, blood culture, D-dimer, EKG and troponin series, BNP ordered. Additionally check respiratory viral panel, MRSA PCR. Antibiotic coverage broadened to piperacillin/tazobactam, vancomycin and azithromycin. Discontinue Unasyn. Continuing pressors to titrate to MAP greater than 65 Methylprednisolone 125 mg stat followed by 40 mg IV every 12 hours Lovenox increased to 1 mg/kg every 12 hours due to concern for possible PE as a cause of acute deterioration. Reviewed recent fecal occult blood testing which was negative. Of note patient has a history of GI bleeding in February 2023 at which point his hemoglobin had dropped to 4. Patient is too unstable to be moved at this present time for a CTA of the chest. Will await D-dimer and lower extremity Doppler and further decisions to be made for presumptive full dose Lovenox based on results of this testing. Coding Level of Care Code Acute Code for Chg Fwd
[2024-02-29] MEDS: methylPREDNISolone sod succ 125 mg/2 mL INJ IVP (04:46)
[2024-02-29] MEDS: vancomycin 1,250 MG/250 ML PIGGYBACK 166.67 MG IV (04:51)
--- NOTE | 2024-02-29 04:52 | ECG_ITS ---
[facility] Date: 2024-02-29 Pat Name: Peng Cooper Department: Room: [facility]09 Gender: Male [employer] Teacher: : 1945 Requested By: Paty Coraod Order Number: [id number] Reading MD: Cj Mukherjee M.D. Measurements Intervals [place] Rate: 89 P: 0 MD: 168 QRS: -20 QRSD: 114 T: 24 QT: 328 QTc: 399 Interpretive Statements SINUS RHYTHM MODERATE INTRAVENTRICULAR CONDUCTION DELAY [110+ ms QRS DURATION] NONSPECIFIC T-WAVE ABNORMALITY Compared to ECG 08/31/2023 17:17:58 T-wave abnormality now present First degree AV block no longer present Electronically Signed On 02-29-2024 08:26:35 CDT by Cj Mukherjee M.D. [id number]
[2024-02-29] MEDS: enoxaparin 60 mg/0.6 mL Syringe SUBCUT ×2 (04:58→16:06)
[2024-02-29 05:01] LABS: Hematocrit 25.6 % (37-53); Mean Corpuscular HGB Conc 32.4 g/dL (30-55); Mean Corpuscular Hemoglobin 27.9 pg (27-33); Mean Corpuscular Volume 86.2 fl (82-101); Mean Platelet Volume 9.9 fL (7.4-10.4); Platelet Count 249 10^3/cmm (157-399); Red Blood Count 2.97 10^6/uL (3.85-5.65); White Blood Count 15.92 10^3/uL (3.29-11.43)
[2024-02-29 05:18] LABS: Troponin(5th) Baseline 49 ng/L (0-15)
[2024-02-29 05:19] LABS: Lactate (Lactic Acid level) 1.7 mmol/L (0.5-2.2)
[2024-02-29 05:23] LABS: D Dimer 11.58 ug/mLFEU (0-0.59)
[2024-02-29 05:35] LABS: Alanine Aminotransferase 16 U/L (0-41); Albumin Level 2.8 g/dL (3.5-5.2); Alkaline Phosphatase 140 U/L (40-130); Anion Gap 13.9 (5-19); Aspartate Amino Transferase 28 U/L (0-40); Blood Urea Nitrogen 29 mg/dL (8-23); Calcium 8.2 mg/dL (8.5-10.5); Carbon Dioxide 25 mmol/L (22-29); Chloride 104 mmol/L (98-107); Creatinine Clr Calc Pharmacy 36.2524; Globulin 2.6 g/dL (1.3-4.6); Glucose 113 mg/dL (65-115); NT Pro B Type Natriuretic Pept 11468 pg/mL (0-450); Osmolality Calculated 295 mOsm/kg (285-295); Potassium 3.9 mmol/L (3.5-5.1); Slide Review Slide Review Perform; Sodium 139 mmol/L (136-145); Total Bilirubin 0.7 mg/dL (0.15-1.2); Total Protein 5.4 g/dL (6.6-8.7)
[2024-02-29 05:36] LABS: Absolute Neutrophil 14.8 10^3/cmm (1.4-6.5); Absolute Segmented Neutrophil 11.8 10/cmm (1.6-7.1); Eosinophils 0 %; Lymphocytes 1 %; Platelet Estimate Normal (Normal); Segmented Neutrophils 74 %; Total Cells Counted 100 (0-100)
[2024-02-29] MEDS: sodium chloride 0.9% 1,000 ML 75 ML IV (05:38)
--- NOTE | 2024-02-29 06:21 | ECG_ITS ---
[facility] Test Date: 2024-02-29 Pat Name: Peng Cooper Department: Room: [facility]09 Gender: Male Value Stream Leader: : 1945 Requested By: Paty Corado Order Number: [id number] Reading MD: Cj Mukherjee M.D. Measurements Intervals [place] Rate: 80 P: 0 MI: 174 QRS: -12 QRSD: 117 T: 32 QT: 334 QTc: 385 Interpretive Statements SINUS RHYTHM MODERATE INTRAVENTRICULAR CONDUCTION DELAY [110+ ms QRS DURATION] NONSPECIFIC T-WAVE ABNORMALITY Compared to ECG 02/29/2024 04:52:19 No significant changes Electronically Signed On 03-01-2024 01:05:37 CDT by Cj Mukherjee M.D. [id number]
[2024-02-29] MEDS: piperacillin-tazobactam 3.375 GM in sodium chloride 0.9% (plus) 50 ML IV ×3 (06:27→21:42)
[2024-02-29 06:36] LABS: MRSA PCR OZH (swab) NOT DETECTED (Negative)
--- NOTE | 2024-02-29 06:55 | PHA.VACGOAL ---
Vancomycin Goal - Goal Vancomycin Goal:: 15-20 mg/L Vancomycin Indication:: Pneumonia - Therapy Current therapy:: Pip/Tazo Day of therpy:: Day [1]of [] . Actual body weight (kg): 57.5 kg - Data Labs: WBC 15.92 10^3/uL (3.29-11.43) H 02/29/24 04:51 RBC 2.97 10^6/uL (3.85-5.65) L 02/29/24 04:51 Hgb 8.30 g/dL (11.27-16.99) L 02/29/24 04:51 Hct 25.6 % (37-53) L 02/29/24 04:51 MCV 86.2 fl (82-101) 02/29/24 04:51 MCH 27.9 pg (27-33) 02/29/24 04:51 MCHC 32.4 g/dL (30-55) 02/29/24 04:51 RDW 14.0 % (12.1-15.1) 02/29/24 04:51 Sodium 139 mmol/L (136-145) 02/29/24 04:51 Potassium 3.9 mmol/L (3.5-5.1) 02/29/24 04:51 Chloride 104 mmol/L (98-107) 02/29/24 04:51 Carbon Dioxide 25 mmol/L (22-29) 02/29/24 04:51 Anion Gap 13.9 (5-19) 02/29/24 04:51 BUN 29 mg/dL (8-23) H 02/29/24 04:51 Creatinine 1.4 mg/dL (0.7-1.2) H 02/29/24 04:51 GFR Calculation Not Reportable 02/29/24 04:51 Treatment plan:: new consult Regimen:: Patient is a 78 year old male with pneomonia. 1250 mg load dose ordered by telepharmacy overnight. For maintence dose will start patient on 750 mg dose q24 hours based on population based Nomogram. Pharmacy will continue to monitor daily.
[2024-02-29 07:15] LABS: Adenovirus Not Detected (NOT DETECT); Chlamydia Pneumoniae Not Detected (NOT DETECT); Coronavirus 229E,HKU1,NL63,OC4 Not Detected (NOT DETECT); Human Metapneumovirus Not Detected (NOT DETECT); Human Rhinovirus/Enterovirus Not Detected (NOT DETECT); Influenza A Not Detected (NOT DETECT); Influenza A H1 Not Detected (NOT DETECT); Influenza A H1-2009 Not Detected (NOT DETECT); Influenza A H3 Not Detected (NOT DETECT); Influenza B Not Detected (NOT DETECT); Mycoplasma Pneumoniae Not Detected (NOT DETECT); Parainfluenza Virus Type 1 Not Detected (NOT DETECT); Parainfluenza Virus Type 2 Not Detected (NOT DETECT); Parainfluenza Virus Type 3 Not Detected (NOT DETECT); Parainfluenza Virus Type 4 Not Detected (NOT DETECT); Respiratory Syncytial Virus A Not Detected (NOT DETECT); Respiratory Syncytial Virus B Not Detected (NOT DETECT); SARS-COV-2 Not Detected (NOT DETECT)
[2024-02-29 07:26] LABS: Troponin 5 2HR 44.85 ng/L (0-15)
[2024-02-29 07:27] LABS: Troponin 5 2HR Delta -4.15 ABS# (0-10)
[2024-02-29] MEDS: sennosides 8.6 mg Tablet 17.2 MG PO ×2 (08:08→18:42)
[2024-02-29] MEDS: pantoprazole DR 40 mg Tablet PO (08:08)
[2024-02-29] MEDS: magnesium oxide 400 mg tablet PO (08:09)
[2024-02-29] MEDS: docusate sodium 100 mg Capsule PO ×2 (08:09→18:42)
[2024-02-29] MEDS: folic acid 1 mg Tablet PO (08:09)
[2024-02-29] MEDS: polyethylene glycol 3350 Pkt 17 gm PO (08:09)
[2024-02-29] MEDS: oxyCODONE 5 mg IR Tab/Cap 10 MG PO (08:10)
[2024-02-29] MEDS: norepinephrine 4 MG/250 ML BAG 45 MG IV (08:13)
[2024-02-29] MEDS: hydroxychloroquine 200 mg Tablet PO ×2 (08:13→18:42)
[2024-02-29] MEDS: sulfaSALAzine 500 mg Tablet PO ×2 (08:13→18:41)
--- NOTE | 2024-02-29 10:21 | ECG_ITS ---
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 Measurements Intervals [place] Rate: 75 P: -2 SD: 173 QRS: -18 QRSD: 113 T: 12 QT: 375 QTc: 420 Interpretive Statements SINUS RHYTHM MODERATE INTRAVENTRICULAR CONDUCTION DELAY [110+ ms QRS DURATION] WARNING: DATA QUALITY MAY AFFECT INTERPRETATION V3 is missing Compared to ECG 02/29/2024 06:15:10 T-wave abnormality no longer present Electronically Signed On 03-01-2024 01:06:02 CDT by Cj Mukherjee M.D. [id number]
[2024-02-29 11:45] LABS: Troponin 5 6HR 35.52 ng/L (0-15); Troponin 5 6HR Delta -13.48 ng/L (0-12)
--- NOTE | 2024-02-29 12:06 | P.PN_ITS ---
Subjective 2 Subjective: Seen this morning. Events overnight appreciated. Patient is currently on 12 mics of Levophed and 55% FiO2 12 L high flow nasal cannula. He states his daughter has DPOA only in the instance where he is incapacitated. Friend at bedside present. Discussed with patient regarding goals of care and he states he would like to proceed with full treatment at this time. He does not want to pursue comfort measures or go on hospice however earlier he did mention he wanted to go home with hospice. Discussed with him the possibility of pulmonary embolism versus pneumonia versus CHF. Patient has poor insight to his medical condition at this time. He states I am doing really well and feels great today. Vitals/I&O/Wt Last Vital Signs Temp 99.3 F 02/29/24 02:35 Pulse 79 02/29/24 11:35 Resp 22 H 02/29/24 11:35 BP 117/70 02/29/24 09:31 Pulse Ox 94 02/29/24 11:35 O2 Del Method Heated High Flow 02/29/24 09:31 O2 Flow Rate 50 02/29/24 11:35 FiO2 50 02/29/24 11:35 02/28/24 02/29/24 02/29/24 22:59 06:59 14:59 Intake Total 290 / 700 1371.125 / 2071.125 642.75 / 642.75 Balance 290 / 700 1371.125 / 2071.125 642.75 / 642.75 Weight last 48 hrs Weight 57.5 kg Weight 60.01 kg Physical Exam 2 Narrative: -High flow nasal cannula 12 L, 55% FiO2. No conversational dyspnea. Frail cachectic appearing male sitting up in bed., Awake alert oriented x 3. Levophed drip running at 12 mics per hour. Neck is supple Cardiovascular regular rate and rhythm Lungs significant rhonchi bilaterally Abdomen scaphoid, bowel sounds noted Extremities no cyanosis clubbing edema Data 02/29/24 04:51 02/29/24 04:51 Micro: Microbiology 02/29/24 04:51 Blood Culture - Preliminary Blood SPECIMEN COLLECTED 02/28/24 11:15 Occult Blood (FIT) - Final Stool Routine Collection A&P Assessment and plan (1) Acetabulum fracture, right: Patient presented with right hip pain and sacral pain after falling Patient has a history of right hip replacement with prosthesis. Admitted for observation, pain control, physical therapy training Will need non-weight bearing on right leg secondary to acetabulum and pelvic fractures; consult PT Pain management with oxycodone 10mg po Q4hrs PRN for pain, patient takes oxycodone-acetaminophen po q6hr PRN at home Patient on hospice at home, does not have constant help around the house, working to see if able to go to a intermediate facility. His goals are to not be in pain, and to have the best quality of life he can. I did discuss his allow natural status with him. As he has revoked hospice, we will go ahead and initiate Lovenox for DVT prophylaxis. Could consider Eliquis 2.5 mg twice daily, with monitoring for worsening anemia if goes to nursing facility. (2) Fracture of inferior pubic ramus: See above (3) Seropositive rheumatoid arthritis of multiple joints: Continue sulfasalazine 500mg and hydroxycholoroquine 200mg BID Patient is on hospice secondary to severe RA and terminal cancer Pain management with oxycodone po Q4hrs PRN for pain, patient takes oxycodone- acetaminophen po q6hr PRN at home (4) Anemia: Labs show chronic anemia, could be secondary to anemia of chronic disease from RA, but cannot r/o possible bone marrow issue due to history of cancer or iron deficiency, which the patient is current taking iron supplementation for. No evidence of ongoing blood loss currently. CBC reviewed today, hemoglobin 8.6. Laboratory was ordered and reviewed today. (5) Septic shock: (6) Respiratory failure: (7) Multifocal pneumonia: Plan Patient was having low grade fevers over night, no definitive evidence of infection on evaluation of chest x-ray and urinalysis. . 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 Chronic constipation Continue Senna and Docusate for bowel regimen, Add lactulose secondary to high stool burden noted on Chest x ray. He has not had a bowel movement on current stool regimen. Protonix for GI PPX Fall risk DNR/DNI SCDs for DVT prophylaxis. Lovenox has been added. 02/29/2024 -Will patient was awaiting retirement placement he acutely decompensated overnight with hypotension, worsening hypoxia at this point requiring high flow nasal cannula at 12 L 55% FiO2. ? Currently on 12 mics of Levophed. Plan to wean off pressors ? Continue vancomycin and Zosyn -Continue Lovenox therapeutic dose twice daily for possibility of pulmonary embolism ? Creatinine elevated 1.5. Will check CT chest without contrast. CT chest does show multifocal pneumonia bilaterally. ? Procalcitonin elevated. Will recheck in a.m. and trend. ? Patient did get septic bolus. He is 7 L positive since admission. Will give Lasix 40 IV x 1. ? Agree with stopping Unasyn overnight and escalating antibiotic coverage. ? Continue to manage pain. Allow natural . Patient is critically ill in the ICU at this time. Continue to manage. Insurance has denied patient's acceptance to intermediate facility. Discussed with patient regarding having to pay [id number] for intermediate versus hospice outpatient. ? Daughter is DPOA. Marlene. ? Blood cultures ordered, sputum Gram stain culture ordered. Attestations 2 Medical Necessity Statement*: multifocal pneumonia sepsis hypoxic resp failure shock Critical Care Time: The high probability of a clinically significant, sudden or life threatening deterioration of the patient's [respiratory, cardiovascular, renal] system(s) required my full and direct attention, intervention and personal management. The critical care time is as shown. This time is in addition to time spent performing any reported procedures but includes the following: [x] Data and vital sign review and interpretation [x] Patient assessment, examination and intervention [x] Documentation [x] Medication orders and management Critical Care Time (min): 35 Coding Level of Care Code Critical Care >/= 30 minutes Critical care time (in minutes): 35 The high probability of a clinically significant, sudden or life threatening deterioration, as referenced in this documentation, required my full and direct attention, intervention and personal management. The critical care time shown is in addition to time spent performing any reported separately billable procedures and includes the following: [x] Data and vital sign review and interpretation [x ] Patient assessment, examination and intervention [x] Medication orders and management [x] Patient/Family updates as able [x] Care Coordination and Documentation. Diagnoses Acetabulum fracture, right S32.401A Fracture of inferior pubic ramus S32.599A Seropositive rheumatoid arthritis of multiple joints M05.79 Anemia D64.9 Septic shock A41.9; R65.21 Respiratory failure J96.90 Multifocal pneumonia J18.9
--- NOTE | 2024-02-29 15:09 | CTR_ITS ---
PROCEDURE INFORMATION: Exam: CT Chest Without Contrast; Diagnostic Exam date and time: 02/29/2024 5:25 PM Age: 78 years old Clinical indication: Shortness of breath; Additional info: Acute hypoxia TECHNIQUE: Imaging protocol: Diagnostic computed tomography of the chest without contrast. Radiation optimization: All CT scans at this facility use at least one of these dose optimization techniques: automated exposure control; mA and/or kV adjustment per patient size (includes targeted exams where dose is matched to clinical indication); or iterative reconstruction. COMPARISON: CT chest w con* [id number] 08/31/2023 6:52 PM RADIATION DOSE METRICS: Total DLP (mGy-cm): 366 FINDINGS: Lungs: Extensive multifocal bilateral consolidation. Pleural spaces: Small bilateral pleural effusion. Grossly stable right upper lobe pleural mass. Heart: Cardiomegaly. No significant pericardial effusion. Coronary arteries: Multivessel coronary calcification. Lymph nodes: Several prominent mediastinal lymph nodes. Vasculature: No aortic aneurysm. Bones/joints: Status post left shoulder arthroplasty. Soft tissues: Unremarkable. CT/CT chest con [id number] IMPRESSION: 1. Extensive bilateral consolidation concerning for pneumonia. 2. Mediastinal adenopathy, nonspecific and presumed reactive. 3. Small bilateral pleural effusion. 4. Grossly stable right upper lobe pleural mass.
[2024-02-29] MEDS: norepinephrine 4 MG/250 ML BAG 18.75 MG IV (15:46)
[2024-02-29] MEDS: FUROsemide 10 mg/mL SDV 4mL 40 MG IVP (16:06)
[2024-02-29] MEDS: methylPREDNISolone sod succ 40 mg/mL INJ IVP (16:06)
[2024-02-29] MEDS: lactulose oral liq 20 gm/30 mL UDC PO (18:41)
[2024-03-01] VITALS (72 sets, daily range): BP systolic 84–143; BP diastolic 51–89; PULSE 64–90; RESP 16–36; TEMP 36.9–37.1; O2SAT 84–96
[2024-03-01 03:25] LABS: Basophils # 0.1 10^3/uL (0.0-0.1); Basophils % 0.2 %; Eosinophils # 0.1 10^3/uL (0.0-0.8); Eosinophils % 0.3 %; Hematocrit 25.7 % (37-53); Lymphocytes # 0.5 10^3/uL (0.8-4.8); Lymphocytes % 2.3 %; Mean Corpuscular HGB Conc 33.1 g/dL (30-55); Mean Corpuscular Hemoglobin 28.2 pg (27-33); Mean Corpuscular Volume 85.4 fl (82-101); Mean Platelet Volume 9.5 fL (7.4-10.4); Monocytes % 4.9 %; Neutrophils # 19.17 10^3/uL (1.8-7.7); Neutrophils % 91.3 %; Nucleated Red Blood Cells % 0.1 %; Platelet Count 298 10^3/cmm (157-399); Red Blood Count 3.01 10^6/uL (3.85-5.65); Red Cell Distribution Width 14.4 % (12.1-15.1); White Blood Count 21.03 10^3/uL (3.29-11.43)
[2024-03-01 03:35] LABS: Slide Review Slide Review Perform
[2024-03-01 03:46] LABS: Alanine Aminotransferase 16 U/L (0-41); Albumin Level 2.7 g/dL (3.5-5.2); Alkaline Phosphatase 120 U/L (40-130); Anion Gap 14.1 (5-19); Aspartate Amino Transferase 20 U/L (0-40); Blood Urea Nitrogen 35 mg/dL (8-23); Calcium 8.7 mg/dL (8.5-10.5); Carbon Dioxide 25 mmol/L (22-29); Chloride 104 mmol/L (98-107); Creatinine Clr Calc Pharmacy 38.3974; Globulin 3.3 g/dL (1.3-4.6); Glucose 129 mg/dL (65-115); Magnesium 2.5 mg/dL (1.7-2.3); Osmolality Calculated 298 mOsm/kg (285-295); Potassium 4.1 mmol/L (3.5-5.1); Sodium 139 mmol/L (136-145); Total Bilirubin 0.5 mg/dL (0.15-1.2)
[2024-03-01] MEDS: enoxaparin 60 mg/0.6 mL Syringe SUBCUT ×2 (04:39→17:42)
[2024-03-01] MEDS: methylPREDNISolone sod succ 40 mg/mL INJ IVP ×2 (04:40→11:19)
[2024-03-01] MEDS: vancomycin 750 MG in sodium chloride 0.9% 250 ML 250 MG IV (04:46)
[2024-03-01] MEDS: lanolin oint 7 gm 1 APPLIC TOPICAL ×2 (06:06→19:40)
[2024-03-01] MEDS: piperacillin-tazobactam 3.375 GM in sodium chloride 0.9% (plus) 50 ML IV ×3 (06:08→22:38)
[2024-03-01] MEDS: docusate sodium 100 mg Capsule PO ×2 (09:15→17:43)
[2024-03-01] MEDS: sennosides 8.6 mg Tablet 17.2 MG PO ×2 (09:15→17:43)
[2024-03-01] MEDS: magnesium oxide 400 mg tablet PO (09:15)
[2024-03-01] MEDS: pantoprazole DR 40 mg Tablet PO (09:15)
[2024-03-01] MEDS: lactulose oral liq 20 gm/30 mL UDC PO ×2 (09:15→17:43)
[2024-03-01] MEDS: folic acid 1 mg Tablet PO (09:15)
[2024-03-01] MEDS: polyethylene glycol 3350 Pkt 17 gm PO (09:15)
[2024-03-01] MEDS: midodrine 5 mg TABLET 10 MG PO ×3 (09:15→21:03)
[2024-03-01] MEDS: hydroxychloroquine 200 mg Tablet PO ×2 (09:15→17:43)
[2024-03-01] MEDS: sulfaSALAzine 500 mg Tablet PO ×2 (09:16→17:43)
[2024-03-01] MEDS: oxyCODONE 5 mg IR Tab/Cap 10 MG PO ×2 (15:19→19:27)
--- NOTE | 2024-03-01 16:34 | PC.OT ---
OT TREATMENT ATTEMPTED. PATIENT NOT ABLE TO COMPLETE ADL TASKS AT THIS TIME. REPORTS THAT HE IS WAITING FOR HIS DAUGHTER AND CONTINUOUS IMPROVEMENT CONSULTANT TO VISIT AND THAT HE IS READY TO GO
[2024-03-01] MEDS: ondansetron 2 mg/ML SDV 2 mL 4 MG IVP (19:31)
[2024-03-01] MEDS: artificial tears Op Soln 15 mL Btl 1 DROP EYE-BOTH (19:43)
--- NOTE | 2024-03-01 20:10 | PC.NURSE ---
Gabapentin Patient complaining of nerve pain in his hands and feet not relieved by his oxycodone. Dr. Lau contacted and order received for 100 mg gabapentin BID PO.
[2024-03-01] MEDS: gabapentin 100 mg Capsule PO (22:38)
--- NOTE | 2024-03-01 23:59 | PC.NURSE ---
Speech Eval Upon taking PO medications, patient had to swallow multiple times to clear throat. Additionally, following clearing his throat, patient also had intermittent cough. Dr. Corado contacted; verbal orders received for NPO diet, IVP morphine 4 mg Q6H for pain, as well as a speech eval.
[2024-03-02] VITALS (59 sets, daily range): BP systolic 92–131; BP diastolic 50–90; PULSE 62–87; RESP 16–43; TEMP 36.6–37.5; O2SAT 85–100
[2024-03-02] MEDS: morphine 4 mg/mL SDV 1 mL IVP ×4 (00:48→21:04)
[2024-03-02] MEDS: enoxaparin 60 mg/0.6 mL Syringe SUBCUT ×2 (04:26→18:41)
[2024-03-02] MEDS: vancomycin 750 MG in sodium chloride 0.9% 250 ML 250 MG IV (04:26)
[2024-03-02 04:54] LABS: Basophils % 0.1 %; Eosinophils % 0.1 %; Hematocrit 24.6 % (37-53); Lymphocytes # 0.7 10^3/uL (0.8-4.8); Lymphocytes % 4.5 %; Mean Corpuscular HGB Conc 32.5 g/dL (30-55); Mean Platelet Volume 9.7 fL (7.4-10.4); Monocytes # 0.8 10^3/uL (0.2-0.9); Monocytes % 4.8 %; Neutrophils # 13.97 10^3/uL (1.8-7.7); Neutrophils % 88.8 %; Nucleated Red Blood Cells % 0.1 %; Platelet Count 326 10^3/cmm (157-399); Red Blood Count 2.86 10^6/uL (3.85-5.65); Red Cell Distribution Width 14.6 % (12.1-15.1); White Blood Count 15.74 10^3/uL (3.29-11.43)
[2024-03-02 05:20] LABS: Anion Gap 10.8 (5-19); Blood Urea Nitrogen 33 mg/dL (8-23); Carbon Dioxide 29 mmol/L (22-29); Chloride 109 mmol/L (98-107); Glucose 121 mg/dL (65-115); Magnesium 2.5 mg/dL (1.7-2.3); Osmolality Calculated 309 mOsm/kg (285-295); Phosphorus 2.4 mg/dL (2.5-4.5); Potassium 3.8 mmol/L (3.5-5.1); Sodium 145 mmol/L (136-145)
[2024-03-02 05:24] LABS: Procalcitonin 4.34 ng/mL (0-0.5)
[2024-03-02] MEDS: piperacillin-tazobactam 3.375 GM in sodium chloride 0.9% (plus) 50 ML IV ×3 (05:58→22:28)
[2024-03-02 06:02] LABS: ABG PH Result 7.43 (7.35-7.45); Blood Gas Allen Test Pos; Blood Gas Sample Site Brachial, right; Blood Gas Sample Type Arterial; Oxygen Device HAG; PO2 FiO2 Ratio Arterial Blood 111
[2024-03-02 06:04] LABS: ABG PCO2 46.1 mmHg (35-45); Alveolar-Arterial Oxygen Gradi 28.3 mmHg (5-10); Arterial Blood Gas Hematocrit 24.6 % (42-52); Base Excess ABG 5.6 mmol/L (-2.0-2.0); Blood Gas Operator Identificat .JDB; HCO3 ABG 30.5 mmol/L (22-26); HGB O2 Sat 83.7 % (95-100); Ionized Calcium Level - ABG 1.3 mmol/L (1.1-1.4); Methemoglobin 1.6 % (0.4-1.5); Potassium Level - ABG 3.5 mmol/L (3.5-5.0)
[2024-03-02] MEDS: artificial tears Op Soln 15 mL Btl 1 DROP EYE-BOTH (08:00)
[2024-03-02] MEDS: sulfaSALAzine 500 mg Tablet PO ×2 (10:10→18:43)
[2024-03-02] MEDS: sennosides 8.6 mg Tablet 17.2 MG PO ×2 (10:10→18:43)
[2024-03-02] MEDS: pantoprazole DR 40 mg Tablet PO (10:10)
[2024-03-02] MEDS: polyethylene glycol 3350 Pkt 17 gm PO (10:11)
[2024-03-02] MEDS: gabapentin 100 mg Capsule PO ×2 (10:11→18:42)
[2024-03-02] MEDS: magnesium oxide 400 mg tablet PO (10:11)
[2024-03-02] MEDS: folic acid 1 mg Tablet PO (10:11)
[2024-03-02] MEDS: midodrine 5 mg TABLET 10 MG PO ×3 (10:11→20:13)
[2024-03-02] MEDS: docusate sodium 100 mg Capsule PO ×2 (10:11→18:43)
[2024-03-02] MEDS: hydroxychloroquine 200 mg Tablet PO ×2 (10:11→18:43)
[2024-03-02] MEDS: methylPREDNISolone sod succ 40 mg/mL INJ IVP (10:12)
[2024-03-02] MEDS: lactulose oral liq 20 gm/30 mL UDC PO ×2 (10:12→18:43)
--- NOTE | 2024-03-02 11:27 | PC.SOCIAL ---
IMM Update Pg. 2 of IMM updated and reviewed with patient, who verbalized understanding. Copy provided.
[2024-03-02] MEDS: oxyCODONE 5 mg IR Tab/Cap 10 MG PO ×2 (11:36→19:45)
--- NOTE | 2024-03-02 13:30 | P.PN_ITS ---
Subjective 2 Subjective: Seen this morning. Patient is 6.5 L positive since admission White blood cells 15.74 this morning. Patient was on 40% FiO2 and 45 L at this time. Procalcitonin trending down to 4.34. Subjectively patient states he feels a lot better. Creatinine improved to 0.9. Patient is off vasopressors. Vitals/I&O/Wt Last Vital Signs Temp 98.3 F 03/02/24 04:30 Pulse 77 03/02/24 12:00 Resp 32 H 03/02/24 12:00 BP 121/68 03/02/24 12:00 Pulse Ox 95 03/02/24 13:25 O2 Del Method Heated High Flow 03/02/24 09:00 O2 Flow Rate 10 03/02/24 13:25 FiO2 45 03/02/24 09:00 03/01/24 03/02/24 03/02/24 22:59 06:59 14:59 Intake Total 250 / 695.938 300 / 995.938 240 / 240 Output Total 800 / 800 875 / 1675 Balance -550 / -104.062 -575 / -679.062 240 / 240 Weight last 48 hrs Weight 57.878 kg Weight 57.606 kg Physical Exam 2 Narrative: -High flow nasal cannula 45 L, 40% FiO2. . No conversational dyspnea. Frail cachectic appearing male sitting up in bed., Awake alert oriented x 3. Neck is supple Cardiovascular regular rate and rhythm Lungs significant rhonchi bilaterally Abdomen scaphoid, bowel sounds noted Extremities no cyanosis clubbing edema Urinary Catheter Management: Oscar: Cath Placed During This Visit: yes Reason for Continuing Indwelling Catheter: Accurate Measurement of Urinary Output in Critically Ill Patients Urinary Catheter Date of Insertion: 02/29/24 Urinary Catheter Time of Insertion: 15:52 Data 03/02/24 04:20 03/02/24 04:20 A&P Assessment and plan (1) Acetabulum fracture, right: Patient presented with right hip pain and sacral pain after falling Patient has a history of right hip replacement with prosthesis. Admitted for observation, pain control, physical therapy training Will need non-weight bearing on right leg secondary to acetabulum and pelvic fractures; consult PT Pain management with oxycodone 10mg po Q4hrs PRN for pain, patient takes oxycodone-acetaminophen po q6hr PRN at home Patient on hospice at home, does not have constant help around the house, working to see if able to go to a senior living facility. His goals are to not be in pain, and to have the best quality of life he can. I did discuss his allow natural status with him. As he has revoked hospice, we will go ahead and initiate Lovenox for DVT prophylaxis. Could consider Eliquis 2.5 mg twice daily, with monitoring for worsening anemia if goes to nursing facility. (2) Fracture of inferior pubic ramus: See above (3) Seropositive rheumatoid arthritis of multiple joints: Continue sulfasalazine 500mg and hydroxycholoroquine 200mg BID Patient is on hospice secondary to severe RA and terminal cancer Pain management with oxycodone po Q4hrs PRN for pain, patient takes oxycodone- acetaminophen po q6hr PRN at home (4) Anemia: Labs show chronic anemia, could be secondary to anemia of chronic disease from RA, but cannot r/o possible bone marrow issue due to history of cancer or iron deficiency, which the patient is current taking iron supplementation for. No evidence of ongoing blood loss currently. CBC reviewed today, hemoglobin 8.6. Laboratory was ordered and reviewed today. (5) Septic shock: (6) Respiratory failure: (7) Multifocal pneumonia: (8) Diastolic heart failure: (9) Oxygen dependent: Plan Patient was having low grade fevers over night, no definitive evidence of infection on evaluation of chest x-ray and urinalysis. . 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 Chronic constipation Continue Senna and Docusate for bowel regimen, Add lactulose secondary to high stool burden noted on Chest x ray. He has not had a bowel movement on current stool regimen. Protonix for GI PPX Fall risk DNR/DNI SCDs for DVT prophylaxis. Lovenox has been added. 03/02/2024 ?Patient does carry a history of diastolic heart failure. He is 6.5 L positive since admission. Currently requiring 40% FiO2 45 L of oxygen. Have discussed with RT to try to wean off if able to. ? Will start diuresing patient add Lasix 40 IV twice daily, first dose now ? Continue to monitor strict urine output. Remove Oscar catheter. Patient may urinate into a urinal for measurement of output. ? Check CTA angio to rule out PE. If negative will switch to DVT prophylaxis dose and stop therapeutic Lovenox. ? Vasopressors have been off ? Continue vancomycin and Zosyn at this time ? Sputum culture Gram stain pending at this time. ? Discussed with case management to evaluate patient for select facility secondary to oxygen requirements. Hopefully with diuresis we can wean down some of this. ? Patient has discussed regarding going home with hospice eventually however acutely would like to be treated for his current pneumonia. -Continue to manage pain at this time secondary to patient's pelvic fractures ? Daughter is DPOA. He states she is coming in today from [place]. ? Blood cultures negative to date. CODE STATUS: Allow natural Attestations 2 Medical Necessity Statement*: Continue to manage in ICU secondary to high oxygen requirements. Critical Care Time: The high probability of a clinically significant, sudden or life threatening deterioration of the patient's [respiratory] system(s) required my full and direct attention, intervention and personal management. The critical care time is as shown. This time is in addition to time spent performing any reported procedures but includes the following: [x] Data and vital sign review and interpretation [x] Patient assessment, examination and intervention [x] Documentation [x] Medication orders and management Critical Care Time (min): 35 Coding Level of Care Code Acute Code for [facility] Fwd Diagnoses Acetabulum fracture, right S32.401A Fracture of inferior pubic ramus S32.599A Seropositive rheumatoid arthritis of multiple joints M05.79 Anemia D64.9 Septic shock A41.9; R65.21 Respiratory failure J96.90 Multifocal pneumonia J18.9 Diastolic heart failure I50.30 Oxygen dependent Z99.81
--- NOTE | 2024-03-02 13:34 | CT_ITS ---
WS: [id number] CT CHEST ANGIOGRAPHY WITH REFORMATS HISTORY: Rule out pulmonary embolism TECHNIQUE: Contiguous axial images are obtained through the chest during arterial injection of intrav enous contrast. Images are reconstructed to evaluate the pulmonary arteries. MIP imaging also reviewe d. All CT scans at [facility] use at least one of these dose optimization techniques: automat ed exposure control; mA and/or kV adjustment per patient size (includes targeted exams where dose is matched to clinical indication); or iterative reconstruction. CONTRAST: Omnipaque 350; 100 mL IV. DLP: 401.88 mGy.cm COMPARISON: 02/29/2024 Significant streak artifact through the chest from patient's LEFT humeral prosthesis and arm placemen t. There is significant streak artifact through the central pulmonary artery. Small emboli may be easily obscured. There are no large emboli or occlusions at least through the lobar branches. Moderate athe rosclerosis aorta with mild ectasia and dilatation. Heart is moderately enlarged. No RIGHT heart stra in. Pulmonary artery is dilated. Mediastinal and hilar lymph nodes are enlarged. These are probably l ymph nodes due to the dense areas of consolidation scattered throughout both lungs that were recently described. Superimposed conglomerate opacifications in the upper and lower lung castell[place]. Similar to the prior leonela dies. Stable pleural-based thickening in the RIGHT upper lobe. Small bilateral pleural effusions. No pneumothorax. There is marked fecal retention and air distention of the transverse colon. There is air within the p eriphery hepatic flexure surrounded by inspissated fecal material. I do not believe this is pneumatos is at his circumferential. Believe this is air displaced from the fecal impaction and retention. No d estructive bone lesions. CT/CT angio chest PE protcl [id number] IMPRESSION: 1. Quality of this examination is suboptimal due to arm positioning, breathing motion artifact and LEFT humeral replacement. 2. No central pulmonary embolism identified. 3. Dense multifocal conglomerate opacifications as seen on the prior study wit hout improvement. 4. Visualized colon in the upper abdomen is markedly distended with air and in spissated fecal material. Small foci of air in the peripheral colon through the hepatic flexure. I do not believe this is pneumatosis. This is more likely dis placed air in the periphery of the colon due to the fecal retention. If patient is having abdominal pain a noncontrast CT may be of benefit to exclude free ai r or and remaining colon. 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
[2024-03-02] MEDS: iohexol 350 mg/mL 500 mL Btl (per mL) IV (14:30)
--- NOTE | 2024-03-02 15:00 | CTR_ITS ---
PROCEDURE INFORMATION: Exam: CT Abdomen And Pelvis Without Contrast Exam date and time: 03/02/2024 3:55 PM Age: 78 years old Clinical indication: Abdominal tenderness; Prior surgery; Surgery date: <1 month; Surgery type: Hip; Additional info: Air ? TECHNIQUE: Imaging protocol: Computed tomography of the abdomen and pelvis without contrast. Radiation optimization: All CT scans at this facility use at least one of these dose optimization techniques: automated exposure control; mA and/or kV adjustment per patient size (includes targeted exams where dose is matched to clinical indication); or iterative reconstruction. COMPARISON: 1. CT bony pelvis [id number] 02/22/2024 9:[address] abdomen pelvis w con* [id number] 06/30/2023 12:[address] chest wo con [id number] 02/29/2024 5:25 PM RADIATION DOSE METRICS: Total DLP (mGy-cm): 498.09 FINDINGS: Tubes, catheters and devices: A balloon bladder catheter is present. Lungs: Stable severe patchy consolidations and interstitial thickening in the bilateral lung bases. Suggested emphysema in the bilateral lung bases versus chronic interstitial disease. Pleural spaces: Partially seen bilateral pleural effusions. Liver: Normal. No mass. Gallbladder and biliary ducts: Normal. No calcified stones. No ductal dilation. Pancreas: Mild chronic pancreatic atrophy. Spleen: Normal. No splenomegaly. Adrenal glands: Normal. No mass. Kidneys and ureters: Residual contrast material in the bilateral renal pelvises and right ureter. No hydronephrosis. Stomach and bowel: Diffusely air-filled and mildly distended loops of bowel throughout the abdomen with distal rectal air present. Appendix: Appendix not confidently seen. Intraperitoneal space: Trace abdominopelvic ascites without fluid collections. No pneumoperitoneum. Vasculature: Stable severe arterial atherosclerosis. Lymph nodes: Some minimally prominent retroperitoneal lymph nodes, most probably reactive. Urinary bladder: Small amount of intraluminal bladder gas, likely related to recent instrumentation. Residual contrast material in the urinary bladder. Known bladder mass is not confidently evaluated in this exam due to streak artifact. Reproductive: Unremarkable as visualized. Bones/joints: Complete right hip arthroplasty appears in stable position. Stable fracture of the right inferior pubic ramus. Stable right sacral wing fracture. Multilevel bilateral healed rib fractures. Stable right superior pubic ramus fracture. Stable chronic fractures involving the sacrum and coccyx. Progressive depression in L3 chronic superior endplate compression injury with about 50% loss in vertebral body height at this moment. Moderate degenerative changes lumbosacral spine. Soft tissues: Stable chronic calcifications throughout the right pelvic sidewall. Mild body wall edema. Stable surgical clips in the right inguinal space. CT/CT abdomen pelvis wo con [id number] IMPRESSION: 1. Moderate ileus. 2. Stable severe bilateral lung base airspace disease. Pneumonia or pulmonary edema in the differential diagnosis. 3. Partially seen bilateral pleural effusions. Relatively stable. 4. No pneumoperitoneum. 5. Progressive depression in L3 chronic superior endplate compression injury with about 50% loss in vertebral body height at this moment.
[2024-03-02] MEDS: FUROsemide 10 mg/mL SDV 4mL 40 MG IVP (15:02)
[2024-03-02 18:12] LABS: Anion Gap 10.7 (5-19); Blood Urea Nitrogen 27 mg/dL (8-23); Calcium 9.1 mg/dL (8.5-10.5); Carbon Dioxide 30 mmol/L (22-29); Chloride 106 mmol/L (98-107); Glucose 118 mg/dL (65-115); Osmolality Calculated 302 mOsm/kg (285-295); Potassium 3.7 mmol/L (3.5-5.1); Sodium 143 mmol/L (136-145)
--- NOTE | 2024-03-02 19:20 | PC.NURSE ---
Radiologist called but this nurse was in another patient's room. Radiologist was called back but did not answer. monitoring tech said that she would try telling the radiologist that this nurse called.
--- NOTE | 2024-03-02 20:00 | PC.NURSE ---
Oscar Catheter: New order to remove catheter noted. Pt is requesting that the catheter say in. 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 Dr. Farnsworth notified @[id number].
[2024-03-02] MEDS: lanolin oint 7 gm 1 APPLIC TOPICAL (22:28)
[2024-03-03] VITALS (40 sets, daily range): BP systolic 87–113; BP diastolic 47–65; PULSE 63–80; RESP 21–38; TEMP 36.1–36.8; O2SAT 87–99
[2024-03-03] MEDS: oxyCODONE 5 mg IR Tab/Cap 10 MG PO ×3 (01:20→21:52)
[2024-03-03] MEDS: FUROsemide 10 mg/mL SDV 4mL 40 MG IVP ×2 (01:22→14:19)
--- NOTE | 2024-03-03 01:24 | PC.NURSE ---
Chronic Pain: Pt reports that his pain level is almost never better than 8/10 and that he is always in pain. Pain goal less than or equal to 8/10 at this time. Pt agrees with this pain goal.
[2024-03-03] MEDS: enoxaparin 60 mg/0.6 mL Syringe SUBCUT ×2 (03:48→17:21)
[2024-03-03] MEDS: morphine 4 mg/mL SDV 1 mL IVP ×3 (03:48→17:22)
[2024-03-03 03:55] LABS: Basophils % 0.1 %; Eosinophils # 0.1 10^3/uL (0.0-0.8); Eosinophils % 0.4 %; Hematocrit 27.1 % (37-53); Lymphocytes # 0.7 10^3/uL (0.8-4.8); Lymphocytes % 5.4 %; Mean Corpuscular Hemoglobin 27.2 pg (27-33); Mean Corpuscular Volume 87.7 fl (82-101); Mean Platelet Volume 9.7 fL (7.4-10.4); Monocytes # 0.6 10^3/uL (0.2-0.9); Monocytes % 5.1 %; Neutrophils # 11.08 10^3/uL (1.8-7.7); Neutrophils % 87.4 %; Nucleated Red Blood Cells % 0 %; Platelet Count 310 10^3/cmm (157-399); Red Blood Count 3.09 10^6/uL (3.85-5.65); Red Cell Distribution Width 14.7 % (12.1-15.1); White Blood Count 12.66 10^3/uL (3.29-11.43)
[2024-03-03 04:16] LABS: Vancomycin Trough 8.5 ug/mL (10-15)
[2024-03-03 04:42] LABS: Anion Gap 11.3 (5-19); Blood Urea Nitrogen 23 mg/dL (8-23); Calcium 9.3 mg/dL (8.5-10.5); Carbon Dioxide 31 mmol/L (22-29); Chloride 102 mmol/L (98-107); Creatinine Clr Calc Pharmacy 62.5533; Glucose 87 mg/dL (65-115); Osmolality Calculated 295 mOsm/kg (285-295); Phosphorus 2.9 mg/dL (2.5-4.5); Potassium 3.3 mmol/L (3.5-5.1); Sodium 141 mmol/L (136-145)
[2024-03-03] MEDS: vancomycin 750 MG in sodium chloride 0.9% 250 ML 250 MG IV (04:47)
[2024-03-03 05:15] LABS: ABG PCO2 47.6 mmHg (35-45); ABG PH Result 7.47 (7.35-7.45); Alveolar-Arterial Oxygen Gradi 4.4 mmHg (5-10); Arterial Blood Gas Hematocrit 38.4 % (42-52); Base Excess ABG 9.1 mmol/L (-2.0-2.0); Blood Gas Allen Test Pos; Blood Gas Operator Identificat JDB; Blood Gas Sample Site Brachial, right; Blood Gas Sample Type Arterial; Carboxyhemoglobin 0.4 %THgb (0.4-20.1); HCO3 ABG 34.2 mmol/L (22-26); HGB O2 Sat 89.3 % (95-100); Ionized Calcium Level - ABG 1.3 mmol/L (1.1-1.4); Methemoglobin 1.2 % (0.4-1.5); Oxygen Device NC; Oxygen Saturation ABG 90.8; PO2 ABG 59.8 mmHg (80.0-100.0); Potassium Level - ABG 3.1 mmol/L (3.5-5.0); Total Hemoglobin 12.5 g/dL (14-18)
[2024-03-03] MEDS: piperacillin-tazobactam 3.375 GM in sodium chloride 0.9% (plus) 50 ML IV ×3 (05:54→21:53)
[2024-03-03] MEDS: midodrine 5 mg TABLET 10 MG PO ×3 (09:12→21:53)
[2024-03-03] MEDS: sulfaSALAzine 500 mg Tablet PO ×2 (09:12→17:21)
[2024-03-03] MEDS: pantoprazole DR 40 mg Tablet PO (09:12)
[2024-03-03] MEDS: lactulose oral liq 20 gm/30 mL UDC PO ×2 (09:12→17:21)
[2024-03-03] MEDS: docusate sodium 100 mg Capsule PO ×2 (09:12→17:21)
[2024-03-03] MEDS: hydroxychloroquine 200 mg Tablet PO ×2 (09:13→17:22)
[2024-03-03] MEDS: folic acid 1 mg Tablet PO (09:13)
[2024-03-03] MEDS: sennosides 8.6 mg Tablet 17.2 MG PO ×2 (09:13→17:21)
[2024-03-03] MEDS: gabapentin 100 mg Capsule PO ×2 (09:13→17:22)
[2024-03-03] MEDS: magnesium oxide 400 mg tablet PO (09:13)
[2024-03-03] MEDS: methylPREDNISolone sod succ 40 mg/mL INJ IVP (11:22)
[2024-03-03] MEDS: peg /e-lyte soln 4,000 mL Btl 1500 ML PO (15:38)
--- NOTE | 2024-03-03 18:00 | P.PN_ITS ---
Subjective 2 Subjective: Seen this morning. He is now on a liter nasal cannula. Diuresing adequately. Does have an ileus on CT abdomen pelvis performed yesterday night. Patient complains of constipation as well. He is currently on clear liquid diet. Will start GoLytely. Patient is discussed with nursing staff that he would like to go home with comfort care once his daughter arrives from [place] that will be upcoming Tuesday. He would like to stop everything at that time. Patient did not talk to me about that however. Vitals/I&O/Wt Last Vital Signs Temp 97 F L 03/03/24 14:00 Pulse 70 03/03/24 17:00 Resp 24 H 03/03/24 17:22 BP 89/47 03/03/24 17:00 Pulse Ox 88 L 03/03/24 17:00 O2 Del Method High Flow Nasal Cannula 03/03/24 07:43 O2 Flow Rate 8 03/03/24 07:43 FiO2 45 03/02/24 09:00 03/03/24 03/03/24 03/03/24 06:59 14:59 22:59 Intake Total 550 / 1370 150 / 150 200 / 350 Output Total 1900 / 3300 1500 / 1500 Balance -1350 / -1930 150 / 150 -1300 / -1150 Weight last 48 hrs Weight 56.835 kg Weight 57.878 kg Physical Exam 2 Narrative: -On 8 L nasal cannula at this time. No conversational dyspnea. Frail cachectic appearing male sitting up in bed., Awake alert oriented x 3. Neck is supple Cardiovascular regular rate and rhythm Lungs significant rhonchi bilaterally Abdomen scaphoid, bowel sounds noted Extremities no cyanosis clubbing edema Urinary Catheter Management: Oscar: Cath Placed During This Visit: yes Reason for Continuing Indwelling Catheter: Accurate Measurement of Urinary Output in Critically Ill Patients Urinary Catheter Date of Insertion: 02/29/24 Urinary Catheter Time of Insertion: 15:52 Data 03/03/24 03:50 03/03/24 03:50 Micro: Microbiology 02/26/24 15:12 Blood Culture - Final Blood NO GROWTH AFTER 5 DAYS 02/26/24 15:13 Blood Culture - Final Blood NO GROWTH AFTER 5 DAYS 02/29/24 21:40 Urine Culture - Final Urine Catheterized A&P Assessment and plan (1) Acetabulum fracture, right: Patient presented with right hip pain and sacral pain after falling Patient has a history of right hip replacement with prosthesis. Admitted for observation, pain control, physical therapy training Will need non-weight bearing on right leg secondary to acetabulum and pelvic fractures; consult PT Pain management with oxycodone 10mg po Q4hrs PRN for pain, patient takes oxycodone-acetaminophen po q6hr PRN at home Patient on hospice at home, does not have constant help around the house, working to see if able to [facility]. His goals are to not be in pain, and to have the best quality of life he can. I did discuss his allow natural status with him. As he has revoked hospice, we will go ahead and initiate Lovenox for DVT prophylaxis. Could consider Eliquis 2.5 mg twice daily, with monitoring for worsening anemia if goes to nursing facility. (2) Fracture of inferior pubic ramus: See above (3) Seropositive rheumatoid arthritis of multiple joints: Continue sulfasalazine 500mg and hydroxycholoroquine 200mg BID Patient is on hospice secondary to severe RA and terminal cancer Pain management with oxycodone po Q4hrs PRN for pain, patient takes oxycodone- acetaminophen po q6hr PRN at home (4) Anemia: Labs show chronic anemia, could be secondary to anemia of chronic disease from RA, but cannot r/o possible bone marrow issue due to history of cancer or iron deficiency, which the patient is current taking iron supplementation for. No evidence of ongoing blood loss currently. CBC reviewed today, hemoglobin 8.6. Laboratory was ordered and reviewed today. (5) Septic shock: (6) Respiratory failure: (7) Multifocal pneumonia: (8) Diastolic heart failure: (9) Oxygen dependent: Plan Patient was having low grade fevers over night, no definitive evidence of infection on evaluation of chest x-ray and urinalysis. . 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 Chronic constipation Continue Senna and Docusate for bowel regimen, Add lactulose secondary to high stool burden noted on Chest x ray. He has not had a bowel movement on current stool regimen. Protonix for GI PPX Fall risk DNR/DNI SCDs for DVT prophylaxis. Lovenox has been added. 03/03/2024 ? Continue to diurese patient with Lasix 40 IV twice daily. Patient is now 3 L positive. On 8 L high flow nasal cannula. ? Continue to monitor patient's electrolytes. Recheck BMP in evening. Monitor potassium 40 IV x 1. ? Continue to monitor strict urine output. ? CT angio chest rule out PE. Stop therapeutic Lovenox. Switch to DVT prophylaxis dose. ? Continue vancomycin and Zosyn at this time ? Sputum culture Gram stain pending at this time. Uncollected. Patient unable to expectorate. ? Patient being evaluated for select facility. ? He has voiced with nursing staff that he would like to transition to comfort measures once his daughter gets it on Tuesday and would like to stop all treatment. Patient is here to discuss it with me. I will address it again with him tomorrow. For now continue treatment as per patient's wishes. -Continue to manage pain at this time secondary to patient's pelvic fractures ? Daughter is DPOA. He states she is coming in on Tuesday from [place]. ? Blood cultures negative to date. ? Constipation versus ileus. Continue on clear liquid diet. Placed on GoLytely today. Continue docusate senna, MiraLAX. CODE STATUS: Allow natural Attestations 2 Medical Necessity Statement*: Patient on high flow nasal cannula 8 L. Overall improving. Currently on IV diuresis. Diagnoses Acetabulum fracture, right S32.401A Fracture of inferior pubic ramus S32.599A Seropositive rheumatoid arthritis of multiple joints M05.79 Anemia D64.9 Septic shock A41.9; R65.21 Respiratory failure J96.90 Multifocal pneumonia J18.9 Diastolic heart failure I50.30 Oxygen dependent Z99.81
[2024-03-03 18:48] LABS: Anion Gap 12.8 (5-19); Blood Urea Nitrogen 21 mg/dL (8-23); Carbon Dioxide 31 mmol/L (22-29); Chloride 100 mmol/L (98-107); Creatinine Clr Calc Pharmacy 55.2167; Glucose 73 mg/dL (65-115); Osmolality Calculated 292 mOsm/kg (285-295); Potassium 3.8 mmol/L (3.5-5.1); Sodium 140 mmol/L (136-145)
[2024-03-03] MEDS: potassium chloride ER 20 mEq Tablet 40 MEQ PO (21:53)
[2024-03-03] MEDS: enoxaparin 40 mg/0.4 mL Syringe SUBCUT (21:53)
[2024-03-03] MEDS: artificial tears Op Soln 15 mL Btl 1 DROP EYE-BOTH (21:54)
[2024-03-04] VITALS (31 sets, daily range): BP systolic 77–120; BP diastolic 46–66; PULSE 66–93; RESP 20–49; TEMP 36.4–36.7; O2SAT 71–95
[2024-03-04] MEDS: morphine 4 mg/mL SDV 1 mL IVP ×3 (01:38→19:22)
[2024-03-04] MEDS: FUROsemide 10 mg/mL SDV 4mL 40 MG IVP (01:39)
[2024-03-04] MEDS: oxyCODONE 5 mg IR Tab/Cap 10 MG PO ×3 (04:13→21:43)
[2024-03-04] MEDS: artificial tears Op Soln 15 mL Btl 1 DROP EYE-BOTH ×2 (04:15→09:43)
[2024-03-04] MEDS: lanolin oint 7 gm 1 APPLIC TOPICAL (04:17)
[2024-03-04] MEDS: vancomycin 1,000 MG in sodium chloride 0.9% 250 ML 250 MG IV (04:21)
[2024-03-04 05:16] LABS: Basophils # 0.1 10^3/uL (0.0-0.1); Basophils % 0.3 %; Eosinophils % 0.2 %; Hematocrit 28.7 % (37-53); Lymphocytes # 0.8 10^3/uL (0.8-4.8); Lymphocytes % 4.3 %; Mean Corpuscular HGB Conc 31.4 g/dL (30-55); Mean Corpuscular Hemoglobin 27.9 pg (27-33); Mean Corpuscular Volume 88.9 fl (82-101); Mean Platelet Volume 9.6 fL (7.4-10.4); Monocytes # 0.6 10^3/uL (0.2-0.9); Monocytes % 3.3 %; Neutrophils # 16.53 10^3/uL (1.8-7.7); Nucleated Red Blood Cells % 0 %; Platelet Count 343 10^3/cmm (157-399); Red Blood Count 3.23 10^6/uL (3.85-5.65); Red Cell Distribution Width 14.8 % (12.1-15.1); White Blood Count 18.15 10^3/uL (3.29-11.43)
[2024-03-04 05:44] LABS: Anion Gap 12.9 (5-19); Blood Urea Nitrogen 25 mg/dL (8-23); Calcium 8.7 mg/dL (8.5-10.5); Carbon Dioxide 30 mmol/L (22-29); Chloride 97 mmol/L (98-107); Glucose 51 mg/dL (65-115); Magnesium 2.1 mg/dL (1.7-2.3); Osmolality Calculated 284 mOsm/kg (285-295); Phosphorus 3.5 mg/dL (2.5-4.5); Potassium 3.9 mmol/L (3.5-5.1); Sodium 136 mmol/L (136-145)
[2024-03-04] MEDS: piperacillin-tazobactam 3.375 GM in sodium chloride 0.9% (plus) 50 ML IV ×3 (05:48→21:44)
[2024-03-04 05:59] LABS: Glucose Point of Care 64 mg/dL (70-110)
[2024-03-04] MEDS: lactulose oral liq 20 gm/30 mL UDC PO ×2 (09:23→17:29)
[2024-03-04] MEDS: gabapentin 100 mg Capsule PO ×2 (09:24→17:30)
[2024-03-04] MEDS: midodrine 5 mg TABLET 10 MG PO ×3 (09:24→20:05)
[2024-03-04] MEDS: magnesium oxide 400 mg tablet PO (09:24)
[2024-03-04] MEDS: hydroxychloroquine 200 mg Tablet PO ×2 (09:24→17:29)
[2024-03-04] MEDS: sennosides 8.6 mg Tablet 17.2 MG PO ×2 (09:24→17:29)
[2024-03-04] MEDS: pantoprazole DR 40 mg Tablet PO (09:24)
[2024-03-04] MEDS: polyethylene glycol 3350 Pkt 17 gm PO (09:25)
[2024-03-04] MEDS: folic acid 1 mg Tablet PO (09:25)
[2024-03-04] MEDS: sulfaSALAzine 500 mg Tablet PO ×2 (09:25→17:30)
[2024-03-04] MEDS: docusate sodium 100 mg Capsule PO ×2 (09:27→17:29)
[2024-03-04] MEDS: methylPREDNISolone sod succ 40 mg/mL INJ IVP (14:26)
--- NOTE | 2024-03-04 16:05 | P.PN_ITS ---
Subjective 2 Subjective: 1.7L positive since admission. WBC 18,000 today. Patient subjectively feels better. Awaiting his daughter to come in. Currently on clear liquid diet and starting to pass gas. He also took some GoLytely but did not finish the dosage yesterday. Still awaiting bowel movement. Says his daughter will be coming on Tuesday and at that point he will consider going with comfort measures. Still requiring 8 L nasal cannula high flow. Vitals/I&O/Wt Last Vital Signs Temp 98.1 F 03/04/24 04:00 Pulse 84 03/04/24 14:00 Resp 20 H 03/04/24 14:27 BP 107/59 03/04/24 14:00 Pulse Ox 95 03/04/24 14:00 O2 Del Method High Flow Nasal Cannula 03/04/24 10:00 O2 Flow Rate 8 03/04/24 10:00 FiO2 45 03/02/24 09:00 03/04/24 03/04/24 03/04/24 06:59 14:59 22:59 Intake Total 1436 / 1836 650 / 650 Output Total 1050 / 2550 2550 / 2550 Balance 386 / -714 -1900 / -1900 Weight last 48 hrs Weight 54.794 kg Weight 56.835 kg Physical Exam 2 Narrative: -On 8 L nasal cannula at this time. No conversational dyspnea. Frail cachectic appearing male sitting up in bed., Awake alert oriented x 3. Neck is supple Cardiovascular regular rate and rhythm Lungs significant rhonchi bilaterally Abdomen scaphoid, bowel sounds noted Extremities no cyanosis clubbing edema Urinary Catheter Management: Oscar: Cath Placed During This Visit: yes Reason for Continuing Indwelling Catheter: Accurate Measurement of Urinary Output in Critically Ill Patients Urinary Catheter Date of Insertion: 02/29/24 Urinary Catheter Time of Insertion: 15:52 Data 03/04/24 05:00 03/04/24 05:00 A&P Assessment and plan (1) Acetabulum fracture, right: Patient presented with right hip pain and sacral pain after falling Patient has a history of right hip replacement with prosthesis. Admitted for observation, pain control, physical therapy training Will need non-weight bearing on right leg secondary to acetabulum and pelvic fractures; consult PT Pain management with oxycodone 10mg po Q4hrs PRN for pain, patient takes oxycodone-acetaminophen po q6hr PRN at home Patient on hospice at home, does not have constant help around the house, working to see if able to go to a retirement facility. His goals are to not be in pain, and to have the best quality of life he can. I did discuss his allow natural status with him. As he has revoked hospice, we will go ahead and initiate Lovenox for DVT prophylaxis. Could consider Eliquis 2.5 mg twice daily, with monitoring for worsening anemia if goes to nursing facility. (2) Fracture of inferior pubic ramus: See above (3) Seropositive rheumatoid arthritis of multiple joints: Continue sulfasalazine 500mg and hydroxycholoroquine 200mg BID Patient is on hospice secondary to severe RA and terminal cancer Pain management with oxycodone po Q4hrs PRN for pain, patient takes oxycodone- acetaminophen po q6hr PRN at home (4) Anemia: Labs show chronic anemia, could be secondary to anemia of chronic disease from RA, but cannot r/o possible bone marrow issue due to history of cancer or iron deficiency, which the patient is current taking iron supplementation for. No evidence of ongoing blood loss currently. CBC reviewed today, hemoglobin 8.6. Laboratory was ordered and reviewed today. (5) Septic shock: (6) Respiratory failure: (7) Multifocal pneumonia: (8) Diastolic heart failure: (9) Oxygen dependent: Plan Patient was having low grade fevers over night, no definitive evidence of infection on evaluation of chest x-ray and urinalysis. . 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 Chronic constipation Continue Senna and Docusate for bowel regimen, Add lactulose secondary to high stool burden noted on Chest x ray. He has not had a bowel movement on current stool regimen. Protonix for GI PPX Fall risk DNR/DNI SCDs for DVT prophylaxis. Lovenox has been added. 03/04/2024 ? Switch Lasix to 40 IV daily. Patient is still requiring a liter nasal cannula high flow saturating 95%. 1.7 L positive since admission ? Continue to monitor patient's electrolytes ? Continue to monitor strict urine output. ? CT angio chest rule out PE. Continue on DVT prophylaxis Lovenox 40 daily ? Continue vancomycin and Zosyn at this time ? Sputum culture Gram stain pending at this time. Uncollected. Patient unable to expectorate. ? Patient being evaluated for select facility. ? Patient would like to possibly transition to comfort measures once his daughter is here. However once asked about this again he stated no that is not his plan. He says we will talk about it when his daughter arrives. -Continue to manage pain at this time secondary to patient's pelvic fractures ? Daughter is DPOA. He states she is coming in on Tuesday from [place]. ? Blood cultures negative to date. ? Constipation versus ileus. Continue on clear liquid diet. Placed on GoLytely today. Continue docusate senna, MiraLAX. CODE STATUS: Allow natural Attestations 2 Medical Necessity Statement*: Patient on high flow nasal cannula 8 L. Overall improving. Currently on IV diuresis. Diagnoses Acetabulum fracture, right S32.401A Fracture of inferior pubic ramus S32.599A Seropositive rheumatoid arthritis of multiple joints M05.79 Anemia D64.9 Septic shock A41.9; R65.21 Respiratory failure J96.90 Multifocal pneumonia J18.9 Diastolic heart failure I50.30 Oxygen dependent Z99.81
[2024-03-04] MEDS: enoxaparin 40 mg/0.4 mL Syringe SUBCUT (20:06)
[2024-03-05] VITALS (38 sets, daily range): BP systolic 79–131; BP diastolic 47–80; PULSE 63–107; RESP 14–38; TEMP 36.6–38.1; O2SAT 79–95; BMI 20.9
[2024-03-05] MEDS: morphine 4 mg/mL SDV 1 mL IVP ×4 (01:29→17:50)
[2024-03-05 03:07] LABS: Basophils % 0.1 %; Eosinophils # 0.1 10^3/uL (0.0-0.8); Eosinophils % 0.6 %; Hematocrit 25.7 % (37-53); Lymphocytes # 0.8 10^3/uL (0.8-4.8); Lymphocytes % 5.2 %; Mean Corpuscular HGB Conc 31.5 g/dL (30-55); Mean Corpuscular Hemoglobin 27.5 pg (27-33); Mean Corpuscular Volume 87.1 fl (82-101); Mean Platelet Volume 9.7 fL (7.4-10.4); Monocytes # 0.6 10^3/uL (0.2-0.9); Neutrophils # 13.61 10^3/uL (1.8-7.7); Neutrophils % 89.1 %; Nucleated Red Blood Cells % 0 %; Platelet Count 319 10^3/cmm (157-399); Red Blood Count 2.95 10^6/uL (3.85-5.65); Red Cell Distribution Width 14.8 % (12.1-15.1); White Blood Count 15.27 10^3/uL (3.29-11.43)
[2024-03-05 03:22] LABS: Anion Gap 10.1 (5-19); Blood Urea Nitrogen 25 mg/dL (8-23); Calcium 8.1 mg/dL (8.5-10.5); Carbon Dioxide 29 mmol/L (22-29); Chloride 92 mmol/L (98-107); Creatinine Clr Calc Pharmacy 49.0147; Glucose 156 mg/dL (65-115); Magnesium 2.3 mg/dL (1.7-2.3); Osmolality Calculated 274 mOsm/kg (285-295); Potassium 3.1 mmol/L (3.5-5.1); Sodium 128 mmol/L (136-145)
[2024-03-05 03:23] LABS: Vancomycin Trough 11.2 ug/mL (10-15)
[2024-03-05] MEDS: vancomycin 1,000 MG in sodium chloride 0.9% 250 ML 250 MG IV ×2 (04:36→22:39)
[2024-03-05] MEDS: oxyCODONE 5 mg IR Tab/Cap 10 MG PO ×3 (05:12→19:33)
[2024-03-05] MEDS: piperacillin-tazobactam 3.375 GM in sodium chloride 0.9% (plus) 50 ML IV ×2 (06:35→14:04)
[2024-03-05] MEDS: hydroxychloroquine 200 mg Tablet PO ×2 (07:48→17:45)
[2024-03-05] MEDS: sennosides 8.6 mg Tablet 17.2 MG PO ×2 (07:49→17:45)
[2024-03-05] MEDS: sulfaSALAzine 500 mg Tablet PO (07:49)
[2024-03-05] MEDS: gabapentin 100 mg Capsule PO ×2 (07:49→17:45)
[2024-03-05] MEDS: folic acid 1 mg Tablet PO (07:49)
[2024-03-05] MEDS: magnesium oxide 400 mg tablet PO (07:50)
[2024-03-05] MEDS: docusate sodium 100 mg Capsule PO ×2 (07:50→17:45)
[2024-03-05] MEDS: pantoprazole DR 40 mg Tablet PO (07:50)
[2024-03-05] MEDS: midodrine 5 mg TABLET 10 MG PO ×3 (07:50→20:23)
[2024-03-05] MEDS: FUROsemide 10 mg/mL SDV 4mL 40 MG IVP (07:51)
[2024-03-05] MEDS: lactulose oral liq 20 gm/30 mL UDC PO ×2 (07:51→17:45)
[2024-03-05] MEDS: polyethylene glycol 3350 Pkt 17 gm PO (07:51)
--- NOTE | 2024-03-05 09:15 | PC.SOCIAL ---
IMM Update Pg. 2 of IMM Updated and reviewed with patient. Copy provided.
--- NOTE | 2024-03-05 13:56 | P.PN_ITS ---
Subjective 2 Subjective: Reports he is doing okay this morning. Ate some Jell-O and finished an Ensure shake for breakfast. During lunchtime noted may be coughing up/aspirating with some Jell-O. Oxygen saturation noted worsened. Vitals/I&O/Wt Last Vital Signs Temp 98.7 F 03/05/24 08:00 Pulse 86 03/05/24 12:00 Resp 35 H 03/05/24 12:00 BP 113/62 03/05/24 12:00 Pulse Ox 94 03/05/24 12:00 O2 Del Method High Flow Nasal Cannula 03/05/24 08:05 O2 Flow Rate 6 03/05/24 08:05 FiO2 45 03/02/24 09:00 03/04/24 03/05/24 03/05/24 22:59 06:59 14:59 Intake Total 520 / 1170 1260 / 2430 450 / 450 Output Total 500 / 3050 550 / 3600 Balance 20 / -1880 710 / -1170 450 / 450 Weight last 48 hrs Weight 57 kg Weight 54.794 kg Physical Exam 2 Narrative: Accompanied by his friend/neighbor. Const: COMMON NORMALS: patient oriented x3 and alert GENERAL APPEARANCE: c ooperative ORIENTATION/CONSCIOUSNESS: Yes awake HENMT: COMMON NORMALS: oropharynx normal Neck/C-Spine: COMMON NORMALS: no JVD Resp: COMMON NORMALS: normal respiratory effort and clear to auscultation bilaterally AUSCULTATION: clear to auscultation bilaterally Cardio: COMMON NORMALS: no JVD, regular rhythm, S1 normal heart sound present, S2 normal heart sound present and No murmurs present (Cardio) RHYTHM: regular rhythm HEART SOUNDS: S1 normal heart sound present and S2 normal heart sound present GI: COMMON NORMALS: Normal to inspection, nondistended, normoactive bowel sounds present, Soft to palpation and non-tender PALPATION: Yes Soft to palpation Extremity: COMMON NORMALS: no joint enlargement and no pedal edema Neuro: COMMON NORMALS: patient oriented x3 and moves all extremities S ENSORIUM/ORIENTATION: Yes alert Skin: COMMON NORMALS: no rashes or lesions noted GENERAL SKIN EXAM: no rashes or lesions noted Urinary Catheter Management: Oscar: Cath Placed During This Visit: yes Reason for Continuing Indwelling Catheter: Accurate Measurement of Urinary Output in Critically Ill Patients Urinary Catheter Date of Insertion: 02/29/24 Urinary Catheter Time of Insertion: 15:52 Data 03/05/24 02:52 03/05/24 02:52 Micro: Microbiology 02/29/24 04:51 Blood Culture - Final Blood NO GROWTH AFTER 5 DAYS A&P Assessment and plan (1) Respiratory failure: Overall has been improving but worsened respiratory failure today, requiring up to 100% FiO2.Considered BiPAP. Held off for now due to risk of worsening failure. Discussed with RT. Noted to be possibly choking up on some Jell-O with suspected aspiration. Made NPO. Requested ST assessment. Will need assessment by MBS. Reviewed vitals, CBC, BMP. Vanco trough. Continue antibiotic coverage with Zosyn, vancomycin. Monitor for risk of kidney injury with this antibiotic combination. Continue treatment in ICU. Added flutter valve. Consider chest vest. Hold Lasix. Overall goals of care are limited. Awaiting arrival of his daughter for further consideration, possibly setting up return home with hospice. (2) Acetabulum fracture, right: Renew IV morphine for severe pain. Renew oxycodone. Patient presented with right hip pain and sacral pain after falling Patient has a history of right hip replacement with prosthesis. Admitted for observation, pain control, physical therapy training Will need non-weight bearing on right leg secondary to acetabulum and pelvic fractures; consult PT Patient had been on hospice at home, does not have constant help around the house, working to see if able to go to a halfway facility. His goals are to not be in pain, and to have the best quality of life he can. I did discuss his allow natural status with him. He has revoked hospice Could consider Eliquis 2.5 mg twice daily, with monitoring for worsening anemia if goes to nursing facility. (3) Fracture of inferior pubic ramus: See above (4) Seropositive rheumatoid arthritis of multiple joints: Continue sulfasalazine 500mg and hydroxycholoroquine 200mg BID Patient is on hospice secondary to severe RA and terminal cancer Pain management with oxycodone po Q4hrs PRN for pain, patient takes oxycodone- acetaminophen po q6hr PRN at home (5) Anemia: Reviewed hemoglobin, platelets. Labs show chronic anemia, could be secondary to anemia of chronic disease from RA, but cannot r/o possible bone marrow issue due to history of cancer or iron deficiency, which the patient is current taking iron supplementation for. No evidence of ongoing blood loss currently. CBC reviewed today, hemoglobin 8.6. Laboratory was ordered and reviewed today. (6) Septic shock: (7) Multifocal pneumonia: (8) Diastolic heart failure: (9) Oxygen dependent: Plan Patient was having low grade fevers over night, no definitive evidence of infection on evaluation of chest x-ray and urinalysis. . 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 Chronic constipation Continue Senna and Docusate for bowel regimen, Add lactulose secondary to high stool burden noted on Chest x ray. He has not had a bowel movement on current stool regimen. Protonix for GI PPX Hyponatremia: Sodium 128. May be secondary to underlying pulmonary disease. Continue treatment. Reassess sodium. Hold Lasix. Fall risk DNR/DNI SCDs for DVT prophylaxis. Lovenox has been added. ? Patient would like to possibly transition to comfort measures once his daughter is here. However once asked about this again he stated no that is not his plan. He says we will talk about it when his daughter arrives. ? Daughter is DPOA. He states she is coming in on Tuesday from [place]. ? Constipation versus ileus. Continue on clear liquid diet. Placed on GoLytely today. Continue docusate senna, MiraLAX. CODE STATUS: Allow natural Attestations 2 Medical Necessity Statement*: Continue admission for assessment management of respiratory failure, aspiration, Acetabular/pelvic fracture, diastolic heart failure, goals of care discussion and postdischarge planning. Coding Level of Care Code Critical Care >/= 30 minutes Critical care time (in minutes): 35 The high probability of a clinically significant, sudden or life threatening deterioration, as referenced in this documentation, required my full and direct attention, intervention and personal management. The critical care time shown is in addition to time spent performing any reported separately billable procedures and includes the following: [x] Data and vital sign review and interpretation [x ] Patient assessment, examination and intervention [x] Medication orders and management [x] Patient/Family updates as able [x] Care Coordination and Documentation. Diagnoses Respiratory failure J96.90 Acetabulum fracture, right S32.401A Fracture of inferior pubic ramus S32.599A Seropositive rheumatoid arthritis of multiple joints M05.79 Anemia D64.9 Septic shock A41.9; R65.21 Multifocal pneumonia J18.9 Diastolic heart failure I50.30 Oxygen dependent Z99.81
[2024-03-05] MEDS: methylPREDNISolone sod succ 40 mg/mL INJ IVP (13:59)
[2024-03-05] MEDS: enoxaparin 40 mg/0.4 mL Syringe SUBCUT (20:25)
[2024-03-06] VITALS (50 sets, daily range): BP systolic 85–116; BP diastolic 42–65; PULSE 65–83; RESP 11–41; TEMP 36.5–37.6; O2SAT 78–99
[2024-03-06] MEDS: piperacillin-tazobactam 3.375 GM in sodium chloride 0.9% (plus) 50 ML IV ×4 (00:12→22:23)
[2024-03-06] MEDS: norepinephrine 4 MG/250 ML BAG 7.5 MG IV (00:41)
[2024-03-06] MEDS: morphine 4 mg/mL SDV 1 mL IVP ×4 (04:50→20:37)
[2024-03-06 05:35] LABS: Basophils % 0.2 %; Eosinophils # 0.1 10^3/uL (0.0-0.8); Eosinophils % 0.9 %; Hematocrit 24.7 % (37-53); Lymphocytes # 0.8 10^3/uL (0.8-4.8); Lymphocytes % 5.4 %; Mean Corpuscular Hemoglobin 27.3 pg (27-33); Mean Corpuscular Volume 85.5 fl (82-101); Mean Platelet Volume 9.7 fL (7.4-10.4); Monocytes # 0.5 10^3/uL (0.2-0.9); Monocytes % 3.6 %; Neutrophils # 13.49 10^3/uL (1.8-7.7); Neutrophils % 88.8 %; Nucleated Red Blood Cells % 0 %; Platelet Count 310 10^3/cmm (157-399); Red Blood Count 2.89 10^6/uL (3.85-5.65); Red Cell Distribution Width 14.6 % (12.1-15.1); White Blood Count 15.18 10^3/uL (3.29-11.43)
[2024-03-06 05:51] LABS: Blood Urea Nitrogen 27 mg/dL (8-23); Calcium 8.1 mg/dL (8.5-10.5); Carbon Dioxide 30 mmol/L (22-29); Chloride 93 mmol/L (98-107); Creatinine Clr Calc Pharmacy 45.2273; Glucose 92 mg/dL (65-115); Osmolality Calculated 279 mOsm/kg (285-295); Sodium 132 mmol/L (136-145)
[2024-03-06] MEDS: polyethylene glycol 3350 Pkt 17 gm PO (08:41)
[2024-03-06] MEDS: sennosides 8.6 mg Tablet 17.2 MG PO ×2 (08:41→17:07)
[2024-03-06] MEDS: magnesium oxide 400 mg tablet PO (08:41)
[2024-03-06] MEDS: lactulose oral liq 20 gm/30 mL UDC PO ×2 (08:41→17:07)
[2024-03-06] MEDS: folic acid 1 mg Tablet PO (08:41)
[2024-03-06] MEDS: sulfaSALAzine 500 mg Tablet PO ×2 (08:41→17:07)
[2024-03-06] MEDS: gabapentin 100 mg Capsule PO (08:42)
[2024-03-06] MEDS: docusate sodium 100 mg Capsule PO ×2 (08:42→17:07)
[2024-03-06] MEDS: pantoprazole DR 40 mg Tablet PO (08:42)
[2024-03-06] MEDS: hydroxychloroquine 200 mg Tablet PO ×2 (08:42→17:07)
[2024-03-06] MEDS: midodrine 5 mg TABLET 10 MG PO ×3 (08:42→20:39)
[2024-03-06] MEDS: lidocaine 1% 5 ML in potassium chloride premix 100 ML 52.5 ML IV (10:42)
[2024-03-06] MEDS: oxyCODONE 5 mg IR Tab/Cap 10 MG PO ×3 (12:58→21:35)
[2024-03-06] MEDS: methylPREDNISolone sod succ 40 mg/mL INJ IVP (13:03)
--- NOTE | 2024-03-06 16:26 | P.PN_ITS ---
Subjective 2 Subjective: He reports he is feeling better today. Breathing little better. Affect requirement has come down to 75%. Vitals/I&O/Wt Last Vital Signs Temp 97.9 F 03/06/24 12:00 Pulse 78 03/06/24 15:13 Resp 18 03/06/24 15:13 BP 107/58 03/06/24 13:00 Pulse Ox 90 03/06/24 15:13 O2 Del Method High Flow Nasal Cannula 03/05/24 08:05 O2 Flow Rate 50 03/06/24 15:13 FiO2 75 03/06/24 15:13 03/06/24 03/06/24 03/06/24 06:59 14:59 22:59 Intake Total 300 / 1150 155 / 155 Output Total 350 / 1150 Balance -50 / 0 155 / 155 Weight last 48 hrs Weight 57.5 kg Weight 57 kg Physical Exam 2 Narrative: Accompanied by his friend/neighbor. Const: COMMON NORMALS: patient oriented x3 and alert GENERAL APPEARANCE: c ooperative ORIENTATION/CONSCIOUSNESS: Yes awake HENMT: COMMON NORMALS: oropharynx normal Neck/C-Spine: COMMON NORMALS: no JVD Resp: COMMON NORMALS: normal respiratory effort and clear to auscultation bilaterally AUSCULTATION: clear to auscultation bilaterally Cardio: COMMON NORMALS: no JVD, regular rhythm, S1 normal heart sound present, S2 normal heart sound present and No murmurs present (Cardio) RHYTHM: regular rhythm HEART SOUNDS: S1 normal heart sound present and S2 normal heart sound present GI: COMMON NORMALS: Normal to inspection, nondistended, normoactive bowel sounds present, Soft to palpation and non-tender PALPATION: Yes Soft to palpation Extremity: COMMON NORMALS: no joint enlargement and no pedal edema Neuro: COMMON NORMALS: patient oriented x3 and moves all extremities S ENSORIUM/ORIENTATION: Yes alert Skin: COMMON NORMALS: no rashes or lesions noted GENERAL SKIN EXAM: no rashes or lesions noted Urinary Catheter Management: Oscar: Cath Placed During This Visit: yes Reason for Continuing Indwelling Catheter: Accurate Measurement of Urinary Output in Critically Ill Patients Urinary Catheter Date of Insertion: 02/29/24 Urinary Catheter Time of Insertion: 15:52 Data 03/06/24 04:47 03/06/24 04:47 A&P Assessment and plan (1) Respiratory failure: Reviewed vitals, CBC, BMP. Noted still requirement of 75%, 50 L on heated high flow. Slightly better than yesterday. Still acute respiratory failure. Subjectively he is feeling somewhat better. Aspiration pneumonia. Reviewed blood culture, final culture without growth. MBS could not be completed due to hypotension today requiring Levophed and high oxygen requirement. Proceed once he is little bit more stable. N.p.o. for now. Speech therapy following. Reviewed note. Discussed with corrections caseworker. Nursing. Continue antibiotic coverage with Zosyn, vancomycin. Monitor for risk of kidney injury with this antibiotic combination. Flutter valve. Hold Lasix. Overall goals of care are limited. Awaiting arrival of his daughter for further consideration, possibly setting up return home with hospice. (2) Acetabulum fracture, right: Continue IV morphine for severe pain. Oxycodone as needed. Patient presented with right hip pain and sacral pain after falling Patient has a history of right hip replacement with prosthesis. Admitted for observation, pain control, physical therapy training Will need non-weight bearing on right leg secondary to acetabulum and pelvic fractures; consult PT Patient had been on hospice at home, does not have constant help around the house, working to see if able to go to a halfway facility. His goals are to not be in pain, and to have the best quality of life he can. I did discuss his allow natural status with him. He has revoked hospice Could consider Eliquis 2.5 mg twice daily, with monitoring for worsening anemia if goes to nursing facility. (3) Fracture of inferior pubic ramus: See above (4) Seropositive rheumatoid arthritis of multiple joints: Continue sulfasalazine 500mg and hydroxycholoroquine 200mg BID Patient is on hospice secondary to severe RA and terminal cancer Pain management with oxycodone po Q4hrs PRN for pain, patient takes oxycodone- acetaminophen po q6hr PRN at home (5) Anemia: Reviewed hemoglobin, platelets. Labs show chronic anemia, could be secondary to anemia of chronic disease from RA, but cannot r/o possible bone marrow issue due to history of cancer or iron deficiency, which the patient is current taking iron supplementation for. No evidence of ongoing blood loss currently. CBC reviewed today, hemoglobin 8.6. Laboratory was ordered and reviewed today. (6) Septic shock: (7) Multifocal pneumonia: (8) Diastolic heart failure: (9) Oxygen dependent: Plan Patient was having low grade fevers over night, no definitive evidence of infection on evaluation of chest x-ray and urinalysis. . 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 Chronic constipation Continue Senna and Docusate for bowel regimen, Add lactulose secondary to high stool burden noted on Chest x ray. He has not had a bowel movement on current stool regimen. Protonix for GI PPX Hyponatremia: Sodium better today at 132. May be secondary to underlying pulmonary disease. Continue treatment. Reassess sodium. Hold Lasix. Fall risk DNR/DNI SCDs for DVT prophylaxis. Lovenox has been added. ? Patient would like to possibly transition to comfort measures once his daughter is here. However once asked about this again he stated no that is not his plan. He says we will talk about it when his daughter arrives. ? Daughter is DPOA. Per history obtained from his friend/neighbor, his daughter is coming in on Tuesday night from [place]. ? Constipation versus ileus. Continue on clear liquid diet. Placed on GoLytely today. Continue docusate senna, MiraLAX. CODE STATUS: Allow natural Attestations 2 Medical Necessity Statement*: Continue admission for assessment management of respiratory failure, aspiration, Acetabular/pelvic fracture, diastolic heart failure, goals of care discussion and postdischarge planning. Coding Level of Care Code Critical Care >/= 30 minutes Critical care time (in minutes): 35 The high probability of a clinically significant, sudden or life threatening deterioration, as referenced in this documentation, required my full and direct attention, intervention and personal management. The critical care time shown is in addition to time spent performing any reported separately billable procedures and includes the following: [x] Data and vital sign review and interpretation [x ] Patient assessment, examination and intervention [x] Medication orders and management [x] Patient/Family updates as able [x] Care Coordination and Documentation. Diagnoses Respiratory failure J96.90 Acetabulum fracture, right S32.401A Fracture of inferior pubic ramus S32.599A Seropositive rheumatoid arthritis of multiple joints M05.79 Anemia D64.9 Septic shock A41.9; R65.21 Multifocal pneumonia J18.9 Diastolic heart failure I50.30 Oxygen dependent Z99.81
[2024-03-06] MEDS: vancomycin 1,000 MG in sodium chloride 0.9% 250 ML 250 MG IV (17:08)
[2024-03-06] MEDS: enoxaparin 40 mg/0.4 mL Syringe SUBCUT (20:39)
[2024-03-07] VITALS (36 sets, daily range): BP systolic 89–114; BP diastolic 49–93; PULSE 68–117; RESP 13–37; TEMP 36.4–37.2; O2SAT 77–98
[2024-03-07 04:19] LABS: Basophils % 0.2 %; Eosinophils # 0.1 10^3/uL (0.0-0.8); Eosinophils % 0.3 %; Hematocrit 26.2 % (37-53); Lymphocytes # 0.8 10^3/uL (0.8-4.8); Lymphocytes % 5.3 %; Mean Corpuscular HGB Conc 31.3 g/dL (30-55); Mean Corpuscular Hemoglobin 27.1 pg (27-33); Mean Corpuscular Volume 86.5 fl (82-101); Mean Platelet Volume 9.6 fL (7.4-10.4); Monocytes # 0.6 10^3/uL (0.2-0.9); Monocytes % 4.2 %; Neutrophils # 13.22 10^3/uL (1.8-7.7); Neutrophils % 89.1 %; Nucleated Red Blood Cells % 0 %; Platelet Count 332 10^3/cmm (157-399); Red Blood Count 3.03 10^6/uL (3.85-5.65); Red Cell Distribution Width 14.6 % (12.1-15.1); White Blood Count 14.85 10^3/uL (3.29-11.43)
[2024-03-07 04:37] LABS: Anion Gap 12.1 (5-19); Blood Urea Nitrogen 35 mg/dL (8-23); Calcium 8.5 mg/dL (8.5-10.5); Carbon Dioxide 31 mmol/L (22-29); Chloride 97 mmol/L (98-107); Creatinine Clr Calc Pharmacy 41.5972; Glucose 68 mg/dL (65-115); Osmolality Calculated 288 mOsm/kg (285-295); Potassium 4.1 mmol/L (3.5-5.1); Sodium 136 mmol/L (136-145)
[2024-03-07] MEDS: morphine 4 mg/mL SDV 1 mL IVP ×4 (05:05→22:57)
[2024-03-07] MEDS: artificial tears Op Soln 15 mL Btl 1 DROP EYE-BOTH (05:08)
[2024-03-07] MEDS: lanolin oint 7 gm 1 APPLIC TOPICAL ×2 (05:14→20:42)
[2024-03-07] MEDS: oxyCODONE 5 mg IR Tab/Cap 10 MG PO ×2 (06:28→19:20)
[2024-03-07] MEDS: piperacillin-tazobactam 3.375 GM in sodium chloride 0.9% (plus) 50 ML IV ×3 (06:29→22:58)
[2024-03-07] MEDS: sennosides 8.6 mg Tablet 17.2 MG PO ×2 (08:51→16:36)
[2024-03-07] MEDS: sulfaSALAzine 500 mg Tablet PO ×2 (08:51→16:36)
[2024-03-07] MEDS: folic acid 1 mg Tablet PO (08:51)
[2024-03-07] MEDS: magnesium oxide 400 mg tablet PO (08:51)
[2024-03-07] MEDS: lactulose oral liq 20 gm/30 mL UDC PO ×2 (08:51→16:37)
[2024-03-07] MEDS: hydroxychloroquine 200 mg Tablet PO ×2 (08:52→16:37)
[2024-03-07] MEDS: docusate sodium 100 mg Capsule PO ×2 (08:52→16:37)
[2024-03-07] MEDS: midodrine 5 mg TABLET 10 MG PO ×3 (08:52→20:32)
[2024-03-07] MEDS: pantoprazole DR 40 mg Tablet PO (08:52)
[2024-03-07] MEDS: polyethylene glycol 3350 Pkt 17 gm PO (08:53)
[2024-03-07] MEDS: vancomycin 1,000 MG in sodium chloride 0.9% 250 ML 250 MG IV (09:13)
--- NOTE | 2024-03-07 09:16 | FL_ITS ---
WS: [id number] Exam: FL barium swallow modifd [id number] Date/Time of Exam: 03/07/2024 3:32 PM Reason For Exam: Oral dysphagia Fluoroscopy time: 3min [id number] minutes # of spot films: Modified barium swallow test was performed in conjunction with the speech therapy service. Oral pharyngeal phase of swallowing was grossly normal. The patient tolerated all consistencies of ba rium mixture foodstuffs without aspiration or penetration. There was some pooling of foodstuffs in th e vallecula which were cleared with repeat swallowing of liquid. The patient swallowed a barium table t without difficulty. The tablet passed into the stomach without obstruction. FL/FL barium swallow modifd [id number] IMPRESSION: 1. No aspiration or penetration identified. See above discussion. A separate report and recommendations will follow from the speech therapy servi ce.
--- NOTE | 2024-03-07 09:28 | PC.SOCIAL ---
IMM Update Pg. 2 of IMM updated and reviewed with patient, who verbalized understanding. Copy provided.
--- NOTE | 2024-03-07 12:22 | P.PN_ITS ---
Subjective 2 Subjective: He feels similar today to yesterday, but he feels hungry. Vitals/I&O/Wt Last Vital Signs Temp 99 F 03/07/24 08:00 Pulse 103 H 03/07/24 11:00 Resp 31 H 03/07/24 11:00 BP 94/49 03/07/24 11:00 Pulse Ox 88 L 03/07/24 11:00 O2 Del Method Heated High Flow 03/06/24 22:00 O2 Flow Rate 50 03/07/24 10:01 FiO2 75 03/07/24 10:01 03/06/24 03/07/24 03/07/24 22:59 06:59 14:59 Intake Total 300 / 539.875 50 / 589.875 300 / 300 Output Total 775 / 775 600 / 1375 Balance -475 / -235.125 -550 / -785.125 300 / 300 Weight last 48 hrs Weight 57.5 kg Weight 57.5 kg Physical Exam 2 Narrative: Accompanied by his friend/neighbor. Const: COMMON NORMALS: patient oriented x3 and alert GENERAL APPEARANCE: c ooperative ORIENTATION/CONSCIOUSNESS: Yes awake HENMT: COMMON NORMALS: oropharynx normal Neck/C-Spine: COMMON NORMALS: no JVD Resp: COMMON NORMALS: normal respiratory effort and clear to auscultation bilaterally AUSCULTATION: clear to auscultation bilaterally Cardio: COMMON NORMALS: no JVD, regular rhythm, S1 normal heart sound present, S2 normal heart sound present and No murmurs present (Cardio) RHYTHM: regular rhythm HEART SOUNDS: S1 normal heart sound present and S2 normal heart sound present GI: COMMON NORMALS: Normal to inspection, nondistended, normoactive bowel sounds present, Soft to palpation and non-tender PALPATION: Yes Soft to palpation Extremity: COMMON NORMALS: no joint enlargement and no pedal edema Neuro: COMMON NORMALS: patient oriented x3 and moves all extremities S ENSORIUM/ORIENTATION: Yes alert Skin: COMMON NORMALS: no rashes or lesions noted GENERAL SKIN EXAM: no rashes or lesions noted Urinary Catheter Management: Oscar: Cath Placed During This Visit: yes Reason for Continuing Indwelling Catheter: Accurate Measurement of Urinary Output in Critically Ill Patients Urinary Catheter Date of Insertion: 02/29/24 Urinary Catheter Time of Insertion: 15:52 Data 03/07/24 03:51 03/07/24 03:51 A&P Assessment and plan (1) Respiratory failure: He has not worsened, subjectively feels slightly better, however, he is still requiring 75% FiO2, sats in the high 80s. He is hungry, really wants to resume some oral intake, is awaiting MBS. Study is requested. He has weaned off Levophed. Continue antibiotic coverage with Zosyn, vancomycin. Monitor for risk of kidney injury with this antibiotic combination. Continuous pressure precautions. Resume oral intake depending on MBS. Reviewed blood culture, so far negative. His daughter is arriving in the area. Discussed with rn case manager hospice. Flutter valve. Hold Lasix. Overall goals of care are limited. Awaiting arrival of his daughter for further consideration, possibly setting up return home with hospice. (2) Acetabulum fracture, right: Renew IV morphine for severe pain. Renew oxycodone as needed. Patient presented with right hip pain and sacral pain after falling Patient has a history of right hip replacement with prosthesis. Admitted for observation, pain control, physical therapy training Will need non-weight bearing on right leg secondary to acetabulum and pelvic fractures; consult PT Patient had been on hospice at home, does not have constant help around the house, working to see if able to go to a [facility] facility. His goals are to not be in pain, and to have the best quality of life he can. I did discuss his allow natural status with him. He has revoked hospice Could consider Eliquis 2.5 mg twice daily, with monitoring for worsening anemia if goes to nursing facility. (3) Fracture of inferior pubic ramus: See above (4) Seropositive rheumatoid arthritis of multiple joints: Continue sulfasalazine 500mg and hydroxycholoroquine 200mg BID Patient is on hospice secondary to severe RA and terminal cancer Pain management with oxycodone po Q4hrs PRN for pain, patient takes oxycodone- acetaminophen po q6hr PRN at home (5) Anemia: Reviewed hemoglobin, platelets. Labs show chronic anemia, could be secondary to anemia of chronic disease from RA, but cannot r/o possible bone marrow issue due to history of cancer or iron deficiency, which the patient is current taking iron supplementation for. No evidence of ongoing blood loss currently. CBC reviewed today, hemoglobin 8.6. Laboratory was ordered and reviewed today. 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 Chronic constipation Continue Senna and Docusate for bowel regimen, Add lactulose secondary to high stool burden noted on Chest x ray. He has not had a bowel movement on current stool regimen. Protonix for GI PPX Hyponatremia: Sodium better today at 136. May be secondary to underlying pulmonary disease. Continue treatment. Reassess sodium. Hold Lasix. Fall risk DNR/DNI SCDs for DVT prophylaxis. Lovenox has been added. ? Patient would like to possibly transition to comfort measures once his daughter is here. However once asked about this again he stated no that is not his plan. He says we will talk about it when his daughter arrives. ? Daughter is DPOA. Per history obtained from his friend/neighbor, his daughter is coming in on Tuesday night from [place]. ? Constipation versus ileus. Continue on clear liquid diet. Placed on GoLytely today. Continue docusate senna, MiraLAX. CODE STATUS: Allow natural Attestations 2 Medical Necessity Statement*: Continue admission for assessment management of respiratory failure, aspiration, Acetabular/pelvic fracture, diastolic heart failure, goals of care discussion and postdischarge planning. Diagnoses Respiratory failure J96.90 Acetabulum fracture, right S32.401A Fracture of inferior pubic ramus S32.599A Seropositive rheumatoid arthritis of multiple joints M05.79 Anemia D64.9 Septic shock A41.9; R65.21 Multifocal pneumonia J18.9 Diastolic heart failure I50.30 Oxygen dependent Z99.81
[2024-03-07] MEDS: methylPREDNISolone sod succ 40 mg/mL INJ IVP (15:54)
--- NOTE | 2024-03-07 15:56 | PC.OT ---
OT TREATMENT ATTEMPTED; PATIENT REQUESTS REPOSITIONING OF HIS HEAD AND ASSISTANCE TURNING ON HIS TV AND CHANGING THE CHANNEL. PATIENT O2 SAT DROPPED TO 81% ON HEATED HIGH FLOW WITH PILLOW ADJUSTMENT. PATIENT IS NOT APPROPRIATE FOR SKILLED REHAB AT THIS TIME AND WILL BE TRANSITIONING TO COMFORT MEASURES. D/C SKILLED OT
[2024-03-07] MEDS: enoxaparin 40 mg/0.4 mL Syringe SUBCUT (20:33)
[2024-03-08] VITALS (47 sets, daily range): BP systolic 90–115; BP diastolic 52–79; PULSE 68–82; RESP 16–44; O2SAT 54–97
[2024-03-08] MEDS: oxyCODONE 5 mg IR Tab/Cap 10 MG PO ×2 (00:27→08:35)
[2024-03-08 04:23] LABS: Basophils % 0.2 %; Hematocrit 25.2 % (37-53); Lymphocytes # 0.5 10^3/uL (0.8-4.8); Lymphocytes % 3.3 %; Mean Corpuscular HGB Conc 31.7 g/dL (30-55); Mean Corpuscular Volume 88.1 fl (82-101); Mean Platelet Volume 9.9 fL (7.4-10.4); Monocytes # 0.5 10^3/uL (0.2-0.9); Neutrophils % 92.7 %; Nucleated Red Blood Cells % 0 %; Platelet Count 362 10^3/cmm (157-399); Red Blood Count 2.86 10^6/uL (3.85-5.65); Red Cell Distribution Width 14.5 % (12.1-15.1); White Blood Count 15.75 10^3/uL (3.29-11.43)
[2024-03-08 04:49] LABS: Blood Urea Nitrogen 36 mg/dL (8-23); Calcium 8.7 mg/dL (8.5-10.5); Carbon Dioxide 31 mmol/L (22-29); Chloride 101 mmol/L (98-107); Creatinine Clr Calc Pharmacy 45.3788; Glucose 134 mg/dL (65-115); Osmolality Calculated 300 mOsm/kg (285-295); Sodium 140 mmol/L (136-145)
[2024-03-08 04:51] LABS: Vancomycin Trough 21.1 ug/mL (10-15)
[2024-03-08 04:53] LABS: Anion Gap 12.5 (5-19); Potassium 4.5 mmol/L (3.5-5.1)
--- NOTE | 2024-03-08 05:02 | PC.NURSE ---
Contacted pharmacy in reference to patient's vanc trough of 21.1. Lilian with overnight telepharm[facility] advised too high, hold the dose and our inpatient pharmacy should adjust dose/frequency in the morning.
[2024-03-08] MEDS: morphine 4 mg/mL SDV 1 mL IVP ×5 (05:17→14:35)
[2024-03-08] MEDS: piperacillin-tazobactam 3.375 GM in sodium chloride 0.9% (plus) 50 ML IV (06:47)
[2024-03-08] MEDS: sulfaSALAzine 500 mg Tablet PO (08:28)
[2024-03-08] MEDS: midodrine 5 mg TABLET 10 MG PO (08:28)
[2024-03-08] MEDS: sennosides 8.6 mg Tablet 17.2 MG PO (08:28)
[2024-03-08] MEDS: pantoprazole DR 40 mg Tablet PO (08:28)
[2024-03-08] MEDS: folic acid 1 mg Tablet PO (08:28)
[2024-03-08] MEDS: polyethylene glycol 3350 Pkt 17 gm PO (08:28)
[2024-03-08] MEDS: docusate sodium 100 mg Capsule PO (08:28)
[2024-03-08] MEDS: hydroxychloroquine 200 mg Tablet PO (08:28)
[2024-03-08] MEDS: magnesium oxide 400 mg tablet PO (08:28)
[2024-03-08] MEDS: lactulose oral liq 20 gm/30 mL UDC PO (08:29)
[2024-03-08] MEDS: vancomycin 1,000 MG in sodium chloride 0.9% 250 ML 250 MG IV (09:59)
--- NOTE | 2024-03-08 12:06 | P.PN_ITS ---
Subjective 2 Subjective: His family and friends have arrived and gotten to visit with him and each other. He would like to proceed with discontinuation of aggressive supportive measures and assessments and treatments, and proceed to end-of-life care. Vitals/I&O/Wt Last Vital Signs Temp 98.2 F 03/07/24 20:00 Pulse 71 03/08/24 11:49 Resp 18 03/08/24 11:49 BP 113/60 03/08/24 11:30 Pulse Ox 93 03/08/24 11:49 O2 Del Method Heated High Flow 03/08/24 11:30 O2 Flow Rate 50 03/08/24 11:49 FiO2 75 03/08/24 11:49 03/07/24 03/08/24 03/08/24 22:59 06:59 14:59 Intake Total 50 / 350 50 / 400 480 / 480 Output Total 600 / 600 375 / 375 Balance 50 / 350 -550 / -200 105 / 105 Weight last 48 hrs Weight 57 kg Weight 57.5 kg Physical Exam 2 Narrative: Accompanied by family and friends. Const: COMMON NORMALS: patient oriented x3 and alert GENERAL APPEARANCE: c ooperative ORIENTATION/CONSCIOUSNESS: Yes awake HENMT: COMMON NORMALS: oropharynx normal Neck/C-Spine: COMMON NORMALS: no JVD Resp: AUSCULTATION: rhonchi Cardio: COMMON NORMALS: no JVD, regular rhythm, S1 normal heart sound present, S2 normal heart sound present and No murmurs present (Cardio) RHYTHM: regular rhythm HEART SOUNDS: S1 normal heart sound present and S2 normal heart sound present GI: COMMON NORMALS: Normal to inspection, nondistended, normoactive bowel sounds present, Soft to palpation and non-tender PALPATION: Yes Soft to palpation Extremity: COMMON NORMALS: no joint enlargement and no pedal edema Neuro: COMMON NORMALS: patient oriented x3 and moves all extremities S ENSORIUM/ORIENTATION: Yes alert Skin: COMMON NORMALS: no rashes or lesions noted GENERAL SKIN EXAM: no rashes or lesions noted Urinary Catheter Management: Oscar: Cath Placed During This Visit: yes Reason for Continuing Indwelling Catheter: Accurate Measurement of Urinary Output in Critically Ill Patients Urinary Catheter Date of Insertion: 02/29/24 Urinary Catheter Time of Insertion: 15:52 Data 03/08/24 03:18 03/08/24 03:18 A&P Assessment and plan (1) Respiratory failure: Reviewed vitals, still on 75% FiO2 oxygen support. Afebrile. Reviewed CBC, BMP, Vanco trough. Leukocytosis 16. Vancomycin is therapeutic. Further goals of care discussion today. His daughter has arrived in town. His family and friends have visited with him and each other, he is made a decision to discontinue aggressive supportive care, assessments and treatments. Proceed to end-of-life care with hospice and comfort measures at current time. Discontinuing steroids, antibiotics, blood draws, high flow oxygen, with addition of supportive care including IV Ativan, morphine for any anxiety and/or pain. Discussed with nursing, discussed with adult protective caseworker who is also visited with him and family and is sending referral for inpatient hospice. (2) Acetabulum fracture, right: IV morphine for severe pain. Oxycodone as needed. Patient presented with right hip pain and sacral pain after falling Patient has a history of right hip replacement with prosthesis. Admitted for observation, pain control, physical therapy training Will need non-weight bearing on right leg secondary to acetabulum and pelvic fractures; consult PT Patient had been on hospice at home, does not have constant help around the house, working to see if able to go to a retirement facility. His goals are to not be in pain, and to have the best quality of life he can. I did discuss his allow natural status with him. He has revoked hospice Could consider Eliquis 2.5 mg twice daily, with monitoring for worsening anemia if goes to nursing facility. (3) Fracture of inferior pubic ramus: See above (4) Seropositive rheumatoid arthritis of multiple joints: Continue sulfasalazine 500mg and hydroxycholoroquine 200mg BID Patient is on hospice secondary to severe RA and terminal cancer Pain management with oxycodone po Q4hrs PRN for pain, patient takes oxycodone- acetaminophen po q6hr PRN at home (5) Anemia: Reviewed hemoglobin, platelets. Labs show chronic anemia, could be secondary to anemia of chronic disease from RA, but cannot r/o possible bone marrow issue due to history of cancer or iron deficiency, which the patient is current taking iron supplementation for. No evidence of ongoing blood loss currently. 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 Chronic constipation Continue Senna and Docusate for bowel regimen, Add lactulose secondary to high stool burden noted on Chest x ray. He has not had a bowel movement on current stool regimen. Protonix for GI PPX Hyponatremia: Sodium better today at 136. May be secondary to underlying pulmonary disease. Continue treatment. Reassess sodium. Hold Lasix. Fall risk DNR/DNI SCDs for DVT prophylaxis. Lovenox has been added. ? Patient would like to possibly transition to comfort measures once his daughter is here. However once asked about this again he stated no that is not his plan. He says we will talk about it when his daughter arrives. ? Daughter is DPOA. Per history obtained from his friend/neighbor, his daughter is coming in on Tuesday night from [place]. ? Constipation versus ileus. Continue on clear liquid diet. Placed on GoLytely today. Continue docusate senna, MiraLAX. CODE STATUS: Allow natural Attestations 2 Medical Necessity Statement*: Continue admission for transition to end-of-life care, arrangements for inpatient hospice. and High MDM includes amount and/or complexity of data reviewed/ordered [ resulted lab(s)/test(s) and other healthcare professional discussion] and described risk of complication, morbidity or mortality of management as documented Diagnoses Respiratory failure J96.90 Acetabulum fracture, right S32.401A Fracture of inferior pubic ramus S32.599A Seropositive rheumatoid arthritis of multiple joints M05.79 Anemia D64.9 Septic shock A41.9; R65.21 Multifocal pneumonia J18.9 Diastolic heart failure I50.30 Oxygen dependent Z99.81
--- NOTE | 2024-03-08 12:56 | PC.NURSE ---
Patient and daughter agreed to transition to comfort care after talking to Doctor Geo. Patient was transitioned from heated high flow to 2 liter Nasal Cannula per doctor's orders.
--- NOTE | 2024-03-08 15:22 | P.DES_ITS ---
Discharge Providers DDS Date of Admission: 02/29/24 02:22 Date Summary Completed: 03/08/24 Attending Provider at Admission: Chele Mancilla MD Time of : 15:15 Attending Provider at Discharge: Itz Guardado Primary Care Provider: DO CINDY [place] Diagnoses Hospital Diagnoses (1) Respiratory failure: (2) Acetabulum fracture, right: (3) Fracture of inferior pubic ramus: (4) Seropositive rheumatoid arthritis of multiple joints: (5) Anemia: (6) Septic shock: (7) Multifocal pneumonia: (8) Diastolic heart failure: (9) Oxygen dependent: Reason for Visit Reason for Visit RT hip and Leg pain post fall Summary Date and Time of Date of : 03/08/24 Time of : 15:15 Summary Summary: Very pleasant 78-year-old gentleman with rheumatoid arthritis, Sjogren's syndrome, CVA, anemia, bladder mass, lung mass, history of Hodgkin's lymphoma, marginal zone lymphoma, thoracic outlet syndrome, neuropathy, remote history of smoking, other medical problems was admitted after presenting with right hip and sacral pain after a fall with finding of comminuted fracture of right inferior pubic ramus, right superior ramus with extension into pubic root and anterior acetabular roof as well as fractures and right coccyx and sacral ala. Urinary bladder dome mass increased in size from June. He has been on hospice secondary to rheumatoid arthritis and terminal cancer. Was maintained on bedrest. On presentation also with anemia, blood counts were monitored, although did not end up requiring transfusion. He initially revoked hospice. Arrangements were being made for continued rehabilitation at SNF. He had decompensation while in the hospital becoming hypoxic, hypotensive, requiring admission to intensive care unit, high flow oxygen supplementation. Found to h ave multifocal bilateral pneumonia on CT chest. Treated with broad-spectrum antibiotics. Additionally 7 L positive compared to admission received treatment with Lasix. Showed some transient improvement in oxygenation, however, additionally had episodes of aspiration. Assessed by MBS and speech therapy, diet was adjusted. He further considered his goals of care and awaited his [place] coming from [place] the [place]. On further consideration of his goals of care and further discussion with his daughter and friends he decided to discontinue further aggressive assessments and treatments, transition to end-of-life comfort care. He at 1515 with family by his side. Additional Data Advance directives?: Yes (Daughter) Discharge Plan Discharge Patient Disposition: Condition: Stable Prescriptions: No Action ferrous sulfate 325 mg (65 mg iron) tablet 325 mg PO BID@0800,1999 Hold Instructions: Resume on 03/07/23. [id number] oil-vit D3 300-1,000-1,000 mg-mg-unit capsule 1 cap PO DAILY@0800 magnesium 200 mg tablet 400 mg PO DAILY@0800 folic acid 1 mg tablet 1 mg PO DAILY@0800 Qty: 90 1RF hydroxychloroquine 200 mg tablet 200 mg PO BID Qty: 180 1RF Rx Instructions: Future refills need to be taken care of by primary care provider sulfasalazine 500 mg tablet 500 mg PO BID Qty: 180 1RF Rx Instructions: give with food (meal/snack) (DME) Custom inserts or similar See Rx Instructions .Route .MEDSUPPLY Qty: 1 0RF Rx Instructions: to [employer]ot[employer] Dry Mouth Oral Rinse Mouthwash 15 ml MUCOUS MEMBRANE 5XD PRN (Reason: Dry Mouth) Qty: 237 1RF Rx Instructions: swish for 15-30 secs , then spit out; do not swallow Multivitamin 50 Plus Tablet 1 tab PO DAILY@0800 sennosides-docusate sodium [Stool Softener-Laxative] 8.6-50 mg Tablet 2 tab PO BID Qty: 14 0RF sucralfate 1 gram tablet 1 g PO DAILY oxycodone-acetaminophen 10-325 mg tablet 1 tab PO Q6H PRN (Reason: Pain) Isopto Tears 0.5 % Drops 1 drp eye-both Q4H Qty: 15 0RF polyethylene glycol 3350 17 gram/dose Powder 4 g PO DAILY Dry Eye Relief 1-0.2-0.2 % Drops 2 drp OPHTHALMIC (EYE) DAILY PRN (Reason: Dry Eye(S)) furosemide 40 mg tablet 40 mg PO DAILY Referrals: [facility] [Outside] Barrie Bhatt DO [Primary Care Provider] - Patient Instructions: Opioid Safety DS Attestations Time Spent in /Discharge Care*: greater than 30 min Quality - AMI: AMI present?: No Quality - Stroke: CVA present?: No Symptom Onset Unknown: No Quality - VTE: VTE present?: No Deep Vein Thrombosis/Pulmonary Embolism Present on Admission: No Coding Level of Care Code 43852 Total time (in minutes) for Discharge: 40 Diagnoses Respiratory failure J96.90 Acetabulum fracture, right S32.401A Fracture of inferior pubic ramus S32.599A Seropositive rheumatoid arthritis of multiple joints M05.79 Anemia D64.9 Septic shock A41.9; R65.21 Multifocal pneumonia J18.9 Diastolic heart failure I50.30 Oxygen dependent Z99.81
--- NOTE | 2024-03-08 15:35 | PC.NURSE ---
Patient's SPO2 monitor showed no activity. This nurse along with DIANN Baptiste went into the room and auscultated for a heart beat and tried to feel for a pulse. No pulse was felt and no heart beat was heard. Doctor Geo was notified. TOD was 1515.
--- NOTE | 2024-03-08 16:36 | PC.NURSE ---
[facility] and [facility] both cleared the patient for not being a candidate for organ or tissue donation. Ezequiel Salguero was the MTS coordinator. Referal number is [phone].Curtis from [facility] was called at [phone]. He stated that another home was going to pick the patient up and they will lease picker the patient from there.
== END 2024-03-08 17:45 | disposition expired | DRG 871 ==
LOC: ER 12:44 → MEDSURG 14:06 → ICU 02-29 02:21
PROVIDERS: Internal Medicine; Student in an Organized Health Care Education/Training Program; Admitting Provider Internal Medicine; Emergency Provider Student in an Organized Health Care Education/Training Program; PCP Internal Medicine; Visit Provider Internal Medicine
DX: A41.9 Sepsis, unspecified organism (principal); J18.9 Pneumonia, unspecified organism; S32.491A Other specified fracture of right acetabulum, initial encounter for closed fracture; J96.91 Respiratory failure, unspecified with hypoxia; R65.21 Severe sepsis with septic shock; S32.591A Other specified fracture of right pubis, initial encounter for closed fracture; S32.2XXA Fracture of coccyx, initial encounter for closed fracture; S32.19XA Other fracture of sacrum, initial encounter for closed fracture; I50.30 Unspecified diastolic (congestive) heart failure; C85.92 Non-Hodgkin lymphoma, unspecified, intrathoracic lymph nodes; E87.1 Hypo-osmolality and hyponatremia; M05.79 Rheumatoid arthritis with rheumatoid factor of multiple sites without organ or systems involvement; D63.8 Anemia in other chronic diseases classified elsewhere; M35.00 Sjogren syndrome, unspecified; G62.9 Polyneuropathy, unspecified; N32.89 Other specified disorders of bladder; D69.6 Thrombocytopenia, unspecified; Z66 Do not resuscitate; K59.09 Other constipation; I73.9 Peripheral vascular disease, unspecified; E86.0 Dehydration; Z85.72 Personal history of non-Hodgkin lymphomas; Z86.73 Personal history of transient ischemic attack (TIA), and cerebral infarction without residual deficits; W19.XXXA Unspecified fall, initial encounter; Y92.009 Unspecified place in unspecified non-institutional (private) residence as the place of occurrence of the external cause; Z51.5 Encounter for palliative care; Z87.891 Personal history of nicotine dependence
CPT/HCPCS: 36415; 36416; 36600; 51702; 71045; 71250; 71275; 72192; 73502; 74176; 74230; 80048; 80051; 80053; 80202; 81001; 82274; 82330; 82805; 82962; 83605; 83735; 83880; 84100; 84145; 84484; 85007; 85025; 85378; 87040; 87086; 87486; 87581; 87633; 92526; 92610; 92611; 93005; 96372; 96374; 96376; 97110; 97162; 97167; 97530; 97535; 99285; G0378; J0295; J1650; J1940; J2270; J2405; J2543; J2919; J3370; J3480; J7030; J7040; J7050